=== PATIENT | male | born 1950 | race Caucasian/White ===

== ENCOUNTER → 2016-06-04 | Outpatient (CLI) | payer OTHER ==
[~2016-06-04] MED LIST: ACET-1256 PO; ASPI81TA28 PO; ATOR-22 PO; CALC667C4 PO; DUTA0.5C PO; DXM4 PO; ERGO500037 PO; HYDR-5688 PO; HYZ/10015 PO; IMDSR30 PO; INSDGI SC; INSDGIPEN SC; INTE44IN INJ; ISOS30TA3 PO; MECL1TAB42 PO; METO1TAB69 PO; METO1TAB70 PO; MULT-506 PO; NIFE30TA83 PO; NIFE90TA27 PO; NVLGIPEN SC; OXYC-57 PO; SILO8CAP PO
[2016-06-04 13:52] LABS: FREE PSA 0.98 ng/ml; PROSTATE SPECIFIC ANTIGEN 2.55 ng/ml (0.000-4.000)
== END | disposition home or self-care (01) ==
LOC: C.LAB1850 12:15
PROVIDERS: ATTEND Urology
DX: N20.0 Calculus of kidney (principal); R97.20 Elevated prostate specific antigen [PSA]; N40.1 Benign prostatic hyperplasia with lower urinary tract symptoms; R31.29 Other microscopic hematuria; R39.15 Urgency of urination; N28.1 Cyst of kidney, acquired; R33.8 Other retention of urine

== ENCOUNTER → 2016-06-12 | Outpatient (CLI) | payer OTHER ==
--- NOTE | 2016-06-12 13:12 | DIAGNOSTIC IMAGING REPORT ---
RENAL ULTRASOUND HISTORY: Hydronephrosis N20.0 Nephrolithiasis COMPARISON: None. FINDINGS: Right kidney: Maximum dimension 13.9 cm. Multicystic configuration. Largest cyst lower pole measuring 10 cm maximum. No evidence for hydronephrosis. Normal corticomedullary differentiation and cortical thickness. Left kidney: Maximum dimension 11.1 cm. No evidence for hydronephrosis. 1.2 cm central cyst. Normal corticomedullary differentiation and cortical thickness. Bladder: Moderate bladder wall trabeculation IMPRESSION: Multicystic appearance to the kidneys with the largest cyst on the right measuring 10 cm. No evidence for hydronephrosis. Mild trabeculation bladder wall Electronically signed by: Jorge García M.D. 06/12/2016 1:11 PM Dictated Date/Time: 06/12/2016 1:03 PM
== END | disposition home or self-care (01) ==
LOC: C.ULTR 12:06
PROVIDERS: ATTEND Urology
DX: N20.0 Calculus of kidney (principal); N28.1 Cyst of kidney, acquired

== ENCOUNTER → 2016-06-22 | Outpatient (CLI) | payer OTHER ==
--- NOTE | 2016-06-22 12:46 | DIAGNOSTIC IMAGING REPORT ---
MRI OF THE BRAIN WITHOUT CONTRAST CLINICAL HISTORY: MS NUMBNESS AND TINGLING OF BOTH LEGS COMPARISON STUDY: 05/07/2015 FINDINGS: Sagittal T1, axial diffusion, proton density and T2 weighted axial, coronal FLAIR, and axial T1-weighted images were acquired. No intra or extra-axial mass lesions are visualized Axial diffusion-weighted images reveal no evidence of acute or subacute infarction. There is no evidence of ventricular dilatation. Proton density T2-weighted and FLAIR images reveal moderately extensive foci of increased T2 signal within the cortical and periventricular white matter. This remains essentially unchanged. There are no abnormal flow voids. IMPRESSION: 1. Extensive foci of abnormal T2 signal within the white matter, similar to the preceding study 2. No evidence of acute or subacute infarction 3. No evidence of intracranial mass on this noncontrast study Electronically signed by: Rony Urbano M.D. 06/22/2016 12:45 PM Dictated Date/Time: 06/22/2016 12:42 PM
--- NOTE | 2016-06-22 13:52 | DIAGNOSTIC IMAGING REPORT ---
MRI OF THE CERVICAL SPINE WITHOUT CONTRAST CLINICAL HISTORY: Multiple sclerosis. Numbness and tingling of both legs. COMPARISON: MRI of the cervical spine May 09, 2015. TECHNIQUE: Utilizing a 1.5 Jesi magnet and dedicated coil, multiplanar, multiecho imaging of the cervical spine was performed without IV contrast. FINDINGS: The MRI of the brain will be reported separately. The exam is mildly compromised by motion artifact. Multifocal increased T2 signal within the cord is likely similar to exam of May 09, 2015 although comparison is difficult given motion artifact on this exam. There is no intracanalicular mass or fluid collection. Paravertebral soft tissues are unremarkable. No suspicious marrow replacement is present. Heterogeneity of the visualized skeletal structures is unchanged. Active demyelination is difficult to assess for on this unenhanced exam. C2-C3: The central canal and neural foramen are taken. C3-C4: The central canal is patent. There is mild narrowing of both neural foramen. C4-C5: Posterior disc osteophyte complex results in mild narrowing of the central canal. There is mild during of both neural foramen. C5-C6: Posterior disc osteophyte complex results in mild to moderate narrowing of central canal. There is mild during of both neural foramen. C6-C7: There is mild narrowing of the central canal and neural foramen. C7-T1: There is mild narrowing of the central canal and neural foramen. IMPRESSION: 1. Multiple areas of increased T2 signal within the cervical cord consistent with demyelination. No significant change since prior exam of May 09, 2015 although this exam is mildly compromised by motion artifact. 2. No change in mild to moderate multilevel degenerative changes, most pronounced at C5-C6. Electronically signed by: Denver Robbins M.D. 06/22/2016 1:51 PM Dictated Date/Time: 06/22/2016 1:43 PM
== END | disposition home or self-care (01) ==
LOC: C.MRI 10:37
PROVIDERS: ATTEND Psychiatry & Neurology Neurology
DX: G35 Multiple sclerosis (principal); R20.2 Paresthesia of skin

== ENCOUNTER → 2016-07-20 | Outpatient (CLI) | payer OTHER ==
[~2016-07-20] VITALS: Ht 175.3 cm; Wt 83.6 kg
[~2016-07-20] MED LIST changes: +CEFAZOLIN 2000 MG/60 ML D5W 60 ML IV SCH; +D5W AND 1/4NSS 1000 ML IV SCH; +METO-648 PO; +METO100T44 PO; -METO1TAB69 PO; -METO1TAB70 PO
[2016-07-20 13:13] VITALS: Ht 175.3 cm; Wt 83.6 kg
--- NOTE | 2016-07-20 13:49 | PAT Medication Instructions ---
Service Date Jul 20, 2016. Current Home Medication List Acetaminophen (Tylenol), 1 TAB PO PRN Aspirin (Aspirin Ec), 81 MG PO HS Atorvastatin (Lipitor), 20 MG PO HS Dutasteride (Avodart), 0.5 MG PO HS Ergocalciferol (Vitamin D 89383 Unit), 50,000 UNIT PO MONTH Hctz/Losartan (Hyzaar 25MG/100MG), 1 TAB PO QAM Insulin Glargine (Lantus), 60 SC QAM Interferon Beta-1A (Rebif), 0.5 ML INJ 3XWEEK Isosorbide Mononitrate Ext Rel (Imdur Ext Rel), 30 MG PO QAM Meclizine Hcl (Meclizine Hcl), 1 TAB PO PRN Metoprolol Succ (Toprol Xl) (Toprol-Xl ), 200 MG PO QAM Multivitamin (Multivitamin), 1 TAB PO QPM Nifedipine Ext Rel (Procardia Xl Ext Rel), 90 MG PO QAM Silodosin (Rapaflo), 1 CAP PO HS Medication Instructions For Your Scheduled Surgery Ergocalciferol (Vitamin D 04160 Unit), 50,000 UNIT PO MONTH (okay to continue as usual) Interferon Beta-1A (Rebif), 0.5 ML INJ 3XWEEK (MWF) (check with neurologist for instructions) - Check with surgeon/recreational vehicle repairer for instructions: Aspirin (Aspirin Ec), 81 MG PO HS - Hold the following medications the morning of surgery: Hctz/Losartan (Hyzaar 25MG/100MG), 1 TAB PO QAM - Take the following medications the morning of surgery with a sip of water: Nifedipine Ext Rel (Procardia Xl Ext Rel), 90 MG PO QAM Metoprolol Succ (Toprol Xl) (Toprol-Xl ), 200 MG PO QAM Meclizine Hcl (Meclizine Hcl), 1 TAB PO PRN Isosorbide Mononitrate Ext Rel (Imdur Ext Rel), 30 MG PO QAM Acetaminophen (Tylenol), 1 TAB PO PRN - Take the following medications as scheduled the night before surgery: Silodosin (Rapaflo), 1 CAP PO HS Multivitamin (Multivitamin), 1 TAB PO QPM Meclizine Hcl (Meclizine Hcl), 1 TAB PO PRN Dutasteride (Avodart), 0.5 MG PO HS Atorvastatin (Lipitor), 20 MG PO HS Acetaminophen (Tylenol), 1 TAB PO PRN - For Insulin Dependent Diabetic patients: Test blood sugar A.M. of surgery. - If blood sugar greater than 150, take half of your regular dose of: Insulin Glargine (Lantus), take 30 units - If blood sugar less than 150, do not take any: Insulin Glargine (Lantus) If you have any questions please call us at [phone] (Maddie Salgado PA-C) or [phone] or [phone]
[2016-07-20 14:34] LABS: BASO % 0.7 %; BASO ABS # 0.05 K/uL (0-0.2); COMPLETE YES; EOS % 2.1 %; HEMATOCRIT 29.4 % (42-52); IG% 0.1 %; LYMPH % 24.3 %; LYMPH ABS # 1.63 K/uL (1.2-3.4); MEAN CELL VOLUME 80.8 fL (80-100); MEAN CORPUSCULAR HEMOGLOBIN 29.1 pg (25-34); MEAN CORPUSCULAR HGB CONC 36.1 g/dl (32-36); MEAN PLATELET VOLUME 10.4 fL (7.4-10.4); MONO % 9.1 %; NEUT % 63.7 %; PLATELET COUNT 232 K/uL (130-400); RED BLOOD COUNT 3.64 M/uL (4.7-6.1); WHITE BLOOD COUNT 6.71 K/uL (4.8-10.8)
[2016-07-20 14:56] LABS: BUN/CREATININE RATIO 10.7 (10-20); CALCIUM 9.4 mg/dl (8.5-10.1); POTASSIUM 3.4 mmol/L (3.5-5.1)
--- NOTE | 2016-07-20 15:15 | DIAGNOSTIC IMAGING REPORT ---
CHEST 2 VIEWS ROUTINE CLINICAL HISTORY: PAT preoperative evaluation COMPARISON STUDY: 10/16/2011 FINDINGS: The bones soft tissues and hemidiaphragms are normal. The cardiomediastinal silhouette is normal. The lungs are clear. The pulmonary vasculature is normal. IMPRESSION: Negative chest. Electronically signed by: Jorge García M.D. 07/20/2016 3:14 PM Dictated Date/Time: 07/20/2016 3:13 PM
[2016-07-27 11:54] LABS: URINE APPEARANCE CLEAR (CLEAR); URINE BILIRUBIN NEG (NEG); URINE COLOR YELLOW; URINE EPITHELIAL CELL AUTO 20-30 /lpf (0-5); URINE NITRITE NEG (NEG); URINE PH 6.5 (4.5-7.5); URINE SPECIFIC GRAVITY 1.017 (1.000-1.030); UROBILINOGEN NEG (NEG)
[2016-07-27 12:00] LABS: MANUAL MICROSCOPIC REQUIRED? NO; REVIEW REQ? NO
--- NOTE | 2016-09-15 13:16 | CODING QUERY MEDICAL NECESSITY ---
CQSUPPORTING DIAGNOSIS NEEDED A supporting diagnosis is required for the test/procedure performed on this patient in order for us to be reimbursed by the patient's insurance. Please provide a supporting diagnosis for the following test/procedure listed below next to the test name along with your signature. *If there is no additional diagnosis for this patient that would support the following test/procedure please document that below next to the test/procedure. Test(s)/Procedure(s) that require a supporting diagnosis: DOS 07/20/16 URINE CULTURE Provider Signature: Date: Thank you Nay Kaba [facility] Information Management Once completed, please kindly fax back to [phone] For questions please call [phone]
== END | disposition home or self-care (01) ==
LOC: C.LAB 08:00 → EDSTATUS 08-06 10:53
PROVIDERS: ATTEND Urology
DX: Z01.818 Encounter for other preprocedural examination (principal); R39.15 Urgency of urination; R31.29 Other microscopic hematuria; R97.20 Elevated prostate specific antigen [PSA]; N40.0 Benign prostatic hyperplasia without lower urinary tract symptoms

== ENCOUNTER → 2016-07-27 | Outpatient (CLI) | payer OTHER ==
[~2016-07-27] MED LIST changes: -CEFAZOLIN 2000 MG/60 ML D5W 60 ML IV SCH; -D5W AND 1/4NSS 1000 ML IV SCH; -METO-648 PO; -METO100T44 PO; +METO1TAB69 PO; +METO1TAB70 PO
[2016-07-27 10:52] LABS: PATIENT HEIGHT 175.3 cm
[2016-07-27 12:08] LABS: BASO % 0.4 %; BASO ABS # 0.03 K/uL (0-0.2); COMPLETE YES; EOS % 2.7 %; HEMATOCRIT 26.1 % (42-52); IG% 0.1 %; LYMPH % 20.7 %; LYMPH ABS # 1.39 K/uL (1.2-3.4); MEAN CELL VOLUME 81.1 fL (80-100); MEAN CORPUSCULAR HEMOGLOBIN 28.6 pg (25-34); MEAN CORPUSCULAR HGB CONC 35.2 g/dl (32-36); MEAN PLATELET VOLUME 9.8 fL (7.4-10.4); MONO % 9.1 %; PLATELET COUNT 192 K/uL (130-400); RED BLOOD COUNT 3.22 M/uL (4.7-6.1); WHITE BLOOD COUNT 6.71 K/uL (4.8-10.8)
[2016-07-27 12:09] LABS: URINE APPEARANCE CLEAR (CLEAR); URINE BILIRUBIN NEG (NEG); URINE COLOR YELLOW; URINE EPITHELIAL CELL AUTO >30 /lpf (0-5); URINE NITRITE NEG (NEG); URINE SPECIFIC GRAVITY 1.019 (1.000-1.030); UROBILINOGEN NEG (NEG)
[2016-07-27 12:15] LABS: MANUAL MICROSCOPIC REQUIRED? NO; REVIEW REQ? YES
[2016-07-27 12:22] LABS: BUN/CREATININE RATIO 12.1 (10-20); CALCIUM 8.8 mg/dl (8.5-10.1); POTASSIUM 3.1 mmol/L (3.5-5.1)
[2016-07-27 12:24] LABS: ALB/GLOB RATIO 0.6 (0.9-2)
[2016-07-27 12:47] LABS: URINE PROTIEN/CREAT RATIO 8.8 (0-0.2); URINE TOTAL PROTEIN 873.7 mg/dl (0-11.9)
[2016-07-27 12:55] LABS: URINE TOTAL PROTEIN 726.3 mg/dl (0-11.9)
[2016-07-27 12:57] LABS: URINE TOTAL PROTEIN CALC 10531.4 mg/24 hr (0-149.1)
[2016-07-31 06:55] LABS: ANTI-CENTROMERE AB <1.0 NEG AI (<1.0 NEG); ANTI-SS-A <1.0 NEG AI (<1.0 NEG); ANTI-SS-B <1.0 NEG AI (<1.0 NEG); DNA ds CRITHIDIA NEGATIVE (NEGATIVE); FREE KAPPA 137.3 MG/L (3.3-19.4); FREE KAPPA/LAMBDA RATIO 1.78 (0.26-1.65); FREE LAMBDA 77.1 MG/L (5.7-26.3); MYELOPEROXIDASE AB <1.0 AI (<1.0); Sm Antibody <1.0 NEG AI (<1.0 NEG)
== END | disposition home or self-care (01) ==
LOC: C.LAB1850 10:42
PROVIDERS: ATTEND Internal Medicine Nephrology
DX: I10 Essential (primary) hypertension (principal); R80.9 Proteinuria, unspecified; N18.3 Chronic kidney disease, stage 3 (moderate); E55.9 Vitamin D deficiency, unspecified; N28.1 Cyst of kidney, acquired

== ENCOUNTER 2016-07-29 18:41 | Inpatient (IN) | payer OTHER ==
[~2016-07-29] VITALS: Ht 175.3 cm; Wt 84.2 kg
[~2016-07-29 18:41] MED LIST changes: -ASPI81TA28 PO; -CALC667C4 PO; -DUTA0.5C PO; -DXM4 PO; -ERGO500037 PO; -HYDR-5688 PO; -IMDSR30 PO; -INSDGIPEN SC; -MECL1TAB42 PO; +METO100T44 PO; -METO1TAB69 PO; -METO1TAB70 PO; -MULT-506 PO; -NIFE90TA27 PO; -NVLGIPEN SC; -OXYC-57 PO; -SILO8CAP PO
[2016-07-29 18:53] VITALS: BP 192/90; PULSE 70; TEMP 36.4; O2SAT 97; Ht 175.3 cm; Wt 84.2 kg
[2016-07-29 19:02] VITALS: BP 192/90; PULSE 70; TEMP 36.4; O2SAT 97
[2016-07-29] MEDS ORDERED: MAGNESIUM HYDROXIDE SUSP 30 ML UDC PO PRN (19:30)
[2016-07-29] MEDS ORDERED: ALUMINUM/MAGNESIUM/SIMETH (MAALOX MAX) 30 ML UDC PO PRN (19:30)
[2016-07-29] MEDS ORDERED: ONDANSETRON INJ 2 MG/ML 2 ML VIAL IV PRN (19:30)
[2016-07-29] MEDS ORDERED: ACETAMINOPHEN 325 MG TAB PO PRN (19:30)
[2016-07-29] MEDS ORDERED: GLUCOSE 40% GEL 15 GM TUBE PO PRN (19:45)
[2016-07-29] MEDS ORDERED: GLUCOSE 10 TABS/TUBE PO PRN (19:45)
[2016-07-29] MEDS ORDERED: DEXTROSE 50% 50 ML SYR IV PRN (19:45)
[2016-07-29] MEDS ORDERED: GLUCAGON FOR INJ 1 MG VIAL SQ PRN (19:45)
[2016-07-29 20:00] VITALS: BP 189/90
[2016-07-29] MEDS ORDERED: POLYETHYLENE (MIRALAX) 17 GM PACK PO PRN (20:00)
[2016-07-29 20:35] LABS: HEMATOCRIT 25.9 % (42-52); MEAN CELL VOLUME 82.7 fL (80-100); MEAN CORPUSCULAR HEMOGLOBIN 29.1 pg (25-34); MEAN CORPUSCULAR HGB CONC 35.1 g/dl (32-36); MEAN PLATELET VOLUME 10.4 fL (7.4-10.4); PLATELET COUNT 184 K/uL (130-400); RED BLOOD COUNT 3.13 M/uL (4.7-6.1); WHITE BLOOD COUNT 6.59 K/uL (4.8-10.8)
--- NOTE | 2016-07-29 20:37 | History and Physical ---
History & Physical Date & Time of Service: Jul 29, 2016 at 20:31 Chief Complaint: Acute Renal Failure Primary Care Physician: Elyse Smith M.D. History of Present Illness Source: patient, family This is a 66 y/o M with a history of CKD stage 3, HTN, Colostomy s/p intestinal perforation, DM, MS, BPH who presents as a direct admit from the nephrology office for concerns about elevated LFT's and worsening renal function as well as potential for dialysis. He is scheduled for TURP next week and had pre-op testing last week. Serum creatinine has increased to 4.0 w/ EGFR 15 cc/min. LFT's have also increased. He subsequently had follow up labs this week and then saw Dr. Poe today. He reports not having any symptoms other than persistent urinary sx. His renal impairment is 2/2 Diabetic nephropathy and Hypertensive nephrosclerosis. The patient is being admitted for further evaluation of his abnormal lab values. Past Medical/Surgical History CKD stage 3, HTN, Colostomy s/p intestinal perforation, DM, MS, BPH Family History HTN Social History Smoking Status: Never Smoker Alcohol Use: none Drug Use: none Marital Status: Housing status: lives with family Occupational Status: retired Immunizations History of Influenza Vaccine: Yes Influenza Vaccine Date: Feb 08, 2005 History of Tetanus Vaccine?: No History of Pneumococcal: Yes Pneumococcal Date: Jul 10, 2003 History of Hepatitis B Vaccine: Yes Hepatitis Immunization Date: Jul 09, 2004 Multi-Drug Resistant Organisms History of MDRO: No Allergies Coded Allergies: No Known Allergies (Verified , 07/20/16) Home Medications Scheduled Acetaminophen (Tylenol), 1 TAB PO PRN Aspirin (Aspirin Ec), 81 MG PO HS Atorvastatin (Lipitor), 20 MG PO HS Dutasteride (Avodart), 0.5 MG PO HS Ergocalciferol (Vitamin D 78826 Unit), 50,000 UNIT PO MONTH Hctz/Losartan (Hyzaar 25MG/100MG), 1 TAB PO QAM Insulin Glargine (Lantus Solostar), 68 SC BID Interferon Beta-1A (Rebif), 0.5 ML INJ 3XWEEK Isosorbide Mononitrate Ext Rel (Imdur Ext Rel), 30 MG PO QAM Meclizine Hcl (Meclizine Hcl), 1 TAB PO PRN Metoprolol Succ (Toprol Xl) (Toprol-Xl ), 200 MG PO QAM Multivitamin (Multivitamin), 1 TAB PO QPM Nifedipine Ext Rel (Procardia Xl Ext Rel), 90 MG PO QAM Silodosin (Rapaflo), 1 CAP PO HS Review of Systems Constitutional: No chills, No fever Respiratory: No cough, No dyspnea on exertion, No shortness of breath, No sputum, No wheezing Cardiovascular: No chest pain Abdomen: No constipation, No diarrhea, No nausea, No pain, No vomiting Genitourinary - Male: + urinary frequency, + urinary hesitancy, + urinary urgency, No dysuria, No hematuria Physical Exam Vital Signs Date Time Temp Pulse Resp B/P Pulse Ox O2 Delivery O2 Flow Rate FiO2 07/29/16 19:02 36.4 70 20 192/90 97 Room Air 07/29/16 18:53 36.4 70 20 192/90 97 Room Air General Appearance: no apparent distress Eyes: PERRL, EOMI Neck: supple, no adenopathy Respiratory/Chest: lungs clear, normal breath sounds, no respiratory distress, no accessory muscle use Cardiovascular: regular rate, rhythm, no edema, no murmur Abdomen/GI: normal bowel sounds, non tender, soft, + pertinent finding ( Colostomy in place) Back: no CVA tenderness Extremities/Musculoskelatal: no calf tenderness, normal range of motion, + pedal edema (trace) Neurologic/Psych: no motor/sensory deficits, alert, normal mood/affect, oriented x 3 Diagnostics Laboratory Results Results Past 24 Hours Test 07/29/16 19:25 07/29/16 20:14 Range/Units Bedside Glucose 273 70-99 mg/dl Impression Assessment and Plan Acute on Chronic Kidney disease 2/2 diabetic nephropathy Worsening renal function, Cr, at 4.1 Gentle Hydration repeat Labs AM Renal US Consult Nephrology [place] HTN: Hyzaar held due to renal function Hydralazine PRN DM ISS Lantus 68 BID BPH Kuday Catheter Continue Silodosin and Avodart DVT proph: Heparin VTE Prophylaxis VTE Risk Assessment Done? Y/N: Yes Risk Level: Moderate Given or contraindicated: Unfractionated heparin SQ Assessment and Plan Attending Addendum: I have physically seen and examined this patient, have directed their medical care, have supervised the medical residents activities, and agree with the H&P as noted above, with the following changes: The patient is awake, well-developed and adequately nourished, alert and oriented 3, normocephalic and atraumatic, lying in bed and in no acute distress. HEENT--PERRL, EOMI, mucous membranes and oropharynx dry. Neck--supple, no JVD or bruits, thyroid normal, trachea midline, no adenopathy. Heart--normal S1 and S2, no extra beats, no murmurs, rubs or gallops. Lungs--clear bilaterally with good air movement, no respiratory distress, no accessory muscle use. Abdomen--normal bowel sounds and soft, nontender and nondistended, colostomy in place. Extremities--no cyanosis, clubbing. There is trace pretibial and pedal edema. There are good distal pulses b/l. Dermatologic--normal skin turgor, normal color, warm and dry, no abnormal lymph nodes, no rash. Neurologic--cranial nerves II through XII grossly intact, motor and sensory examination normal. Rheumatologic--normal range of motion, nontender, muscles and joints. Psychiatric--normal affect. Assessment And Plan: Acute on chronic kidney disease--creatinine is 4.1. Hold Hyzaar, and gently hydrate with IV fluids normal saline. Repeat BMP and magnesium in the a.m. This Diabetes mellitus--continue Lantus insulin 60 units subcutaneous twice a day. Place on Accu-Cheks before meals and at bedtime with NovoLog coverage. CAD/hypertension--continue metoprolol succinate 200 mg by mouth daily, nifedipine XL 90 mg by mouth daily, Imdur 30 mg by mouth daily, and aspirin 81 mg by mouth daily. Hold Hyzaar 25/100. Hypercholesterolemia--continue atorvastatin 20 mg by mouth daily. BPH--continue dutasteride and Rapaflo or generic equivalent.
[2016-07-29] MEDS: AVODART~ORDER AWAITING ACTION SCH (20:44)
[2016-07-29] MEDS: RAPAFLO~ORDER AWAITING ACTION SCH (20:45)
[2016-07-29 20:48] LABS: INR 0.9 (0.9-1.1); PARTIAL THROMBOPLASTIN RATIO 1.1; PROTHROMBIN TIME (PATIENT) 10.1 SECONDS (9.0-12.0)
[2016-07-29] MEDS: ASPIRIN 81 MG ECTAB PO SCH (20:53)
[2016-07-29 21:08] LABS: BASO % 0.3 %; BASO ABS # 0.02 K/uL (0-0.2); COMPLETE YES; EOS % 0.6 %; IG% 0.2 %; LYMPH ABS # 0.99 K/uL (1.2-3.4); NEUT % 75.9 %
[2016-07-29 21:12] LABS: ALT/SGPT 110 U/L (12-78); BLOOD UREA NITROGEN 48 mg/dl (7-18); BUN/CREATININE RATIO 11.6 (10-20); CALCIUM 8.6 mg/dl (8.5-10.1); CARBON DIOXIDE 26 mmol/L (21-32); CHLORIDE 110 mmol/L (98-107); GLUCOSE 260 mg/dl (70-99); POTASSIUM 3.3 mmol/L (3.5-5.1); SODIUM 145 mmol/L (136-145)
[2016-07-29 21:15] LABS: ALB/GLOB RATIO 0.6 (0.9-2); ALKALINE PHOSPHATASE 193 U/L (45-117); AST/SGOT 42 U/L (15-37)
[2016-07-29] MEDS ORDERED: MECLIZINE HCL 25 MG TAB PO PRN (21:30)
[2016-07-29] MEDS ORDERED: INSULIN GLARGINE SOLOSTAR 100 UNITS/ML 3 ML PEN SC SCH (21:30)
[2016-07-29] MEDS ORDERED: NURSING VERBAL MED ORDER ONE ×3 (21:30→23:00)
--- NOTE | 2016-07-29 21:50 | DIAGNOSTIC IMAGING REPORT ---
RENAL ULTRASOUND HISTORY: Renal failure worsening kidney function COMPARISON: 06/12/2016 FINDINGS: Right kidney: Maximum dimension 13 cm. No evidence for hydronephrosis. Multiple cysts unchanged from the prior study. Normal corticomedullary differentiation and cortical thickness. Left kidney: Maximum dimension 10.5 cm. No evidence for hydronephrosis. Several cysts unchanged in the prior study Normal corticomedullary differentiation and cortical thickness. Bladder: Mild bladder wall trabeculation unchanged IMPRESSION: multicystic kidneys unchanged from the prior study. No evidence for hydronephrosis. No new or interval finding. Electronically signed by: Jorge García M.D. 07/29/2016 9:49 PM Dictated Date/Time: 07/29/2016 9:47 PM
[2016-07-29] MEDS: SODIUM CHLORIDE 0.9% 1000ML 1,000 ML IV SCH (21:52)
[2016-07-29] MEDS: MULTIVITAMIN TAB PO SCH (21:56)
[2016-07-29] MEDS ORDERED: ATORVASTATIN 20 MG TAB PO SCH (22:00)
[2016-07-29] MEDS: HydrALAZINE HCL 20 MG/ML VIAL IV. PRN (22:54)
[2016-07-29 23:01] VITALS: BP 199/88; PULSE 82; TEMP 36.8; O2SAT 97
[2016-07-29 23:11] LABS: URINE APPEARANCE CLEAR (CLEAR); URINE BILIRUBIN NEG (NEG); URINE COLOR YELLOW; URINE EPITHELIAL CELL AUTO >30 /lpf (0-5); URINE NITRITE NEG (NEG); URINE PH 6.5 (4.5-7.5); UROBILINOGEN NEG (NEG)
[2016-07-29 23:12] LABS: MANUAL MICROSCOPIC REQUIRED? NO; REVIEW REQ? YES
[2016-07-29] MEDS: INSULIN ASPART 100 UNITS/ML 3 ML PEN SC SCH (23:29)
[2016-07-30] VITALS (10 sets, daily range): BP systolic 176–200; BP diastolic 82–104; PULSE 77–88; TEMP 36.6–37.2; O2SAT 95–98
[2016-07-30] MEDS ORDERED: METOPROLOL TARTRATE 1 MG/ML VIAL IV STA (00:42)
[2016-07-30] MEDS ORDERED: HydrALAZINE HCL 20 MG/ML VIAL IV. ONE (01:00)
[2016-07-30] MEDS ORDERED: METOPROLOL TARTRATE 25 MG TAB PO ONE (01:00)
[2016-07-30] MEDS: POTASSIUM CHLR 10MEQ / WTR IV SCH ×2 (01:24→02:31)
[2016-07-30] MEDS: METOPROLOL SUCC 50MG EXT REL TAB PO SCH ×3 (01:28→05:27)
[2016-07-30] MEDS ORDERED: LABETALOL HCL IV 5 MG/ML 20ML IV STA (05:28)
--- NOTE | 2016-07-30 05:32 | Progress Note ---
Progress Note Date of Service Jul 30, 2016. Progress Note Received multiple calls about patient's blood pressure throughout the night. Hydralazine x 2 - no improvement Patient remained asymptomatic. Home dose of metoprolol was inadvertently administered early (dispensing error) instead of the metoprolol tartrate that was ordered. Nurses instructed to hold morning home metoprolol dose at 8. Decided to transfer patient to Tele, to be able to administer Labetalol.
[2016-07-30] MEDS: INSULIN ASPART 100 UNITS/ML 3 ML PEN SC SCH ×4 (07:00→20:23)
[2016-07-30] MEDS ORDERED: INSULIN GLARGINE SOLOSTAR 100 UNITS/ML 3 ML PEN SC SCH (08:00)
[2016-07-30] MEDS ORDERED: ISOSORBIDE MONONITRATE 30 MG TABCR PO SCH (08:00)
--- NOTE | 2016-07-30 08:02 | Family Medicine Progress Note ---
Progress Note Date of Service Jul 30, 2016. Subjective Pt evaluation today including: conversation w/ patient, conversation w/ family , physical exam, chart review, lab review Patient says up until 4-5 days ago, he was well. 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 He has been completely asymptomatic otherwise. He denies recent fevers or URI symptoms. He has a longstanding history of BPH and MS, and there have not been any significant changes in these conditions or their respective medication regimens. Patient feels bewildered as to how and why this came on. is also unsure of how multiple issues seem to have arisen simultaneously. Discussed the likelihood of symptoms overlapping and affecting one another, such as BPH straining kidney and damaged kidney dysregulation of BP, as well as multiple other factors playing a role. Patients questions answered satisfactorily and they began to understand complexity of situation and symptoms. Constitutional: No fatigue, No fever, No weakness, No weight loss Respiratory: No cough, No shortness of breath Cardiovascular: No chest pain, No edema, No orthopnea, No palpitations Abdomen: No nausea, No pain, No vomiting Male : + nocturia more than once/night, + slowing stream, + urinary frequency, No dysuria, No hematuria, No incontinence Skin: No itch, No rash Objective Vital Signs Date Time Temp Pulse Resp B/P Pulse Ox O2 Delivery O2 Flow Rate FiO2 07/30/16 07:50 37.1 88 18 200/89 98 Room Air 07/30/16 05:31 36.9 85 20 199/93 98 Room Air 85 196/104 07/30/16 05:13 36.6 87 16 97 0.0 07/30/16 03:36 87 18 195/91 95 07/29/16 23:01 36.8 82 18 199/88 97 Room Air 07/29/16 20:00 189/90 07/29/16 19:02 36.4 70 20 192/90 97 Room Air 07/29/16 18:53 36.4 70 20 192/90 97 Room Air 07/29/16 18:53 97 Room Air Physical Exam General Appearance: WD/WN, no apparent distress Eyes: normal inspection ENT: hearing grossly normal, pharynx normal Neck: supple, no adenopathy, no JVD Respiratory/Chest: lungs clear, normal breath sounds, no respiratory distress, no accessory muscle use Cardiovascular: regular rate, rhythm, no murmur Laboratory Results Results Past 24 Hours Test 07/29/16 22:43 07/30/16 00:12 07/30/16 06:57 07/30/16 08:49 Range/Units Bedside Glucose 320 283 88 70-99 mg/dl Sodium Level 148 136-145 mmol/L Potassium Level 3.0 3.5-5.1 mmol/L Chloride Level 115 98-107 mmol/L Carbon Dioxide Level 25 21-32 mmol/L Anion Gap 8.0 3-11 mmol/L Blood Urea Nitrogen 41 7-18 mg/dl Creatinine 3.80 0.60-1.40 mg/dl Est Creatinine Clear Calc Drug Dose 18.6 ml/min Estimated GFR () 17.8 Estimated GFR (Non- 15.3 BUN/Creatinine Ratio 10.8 10-20 Random Glucose 147 70-99 mg/dl Calcium Level 8.1 8.5-10.1 mg/dl Phosphorus Level 4.0 2.5-4.9 mg/dl Magnesium Level 2.2 1.8-2.4 mg/dl Total Bilirubin 0.3 0.2-1 mg/dl Aspartate Amino Transf (AST/SGOT) 28 15-37 U/L Alanine Aminotransferase (ALT/SGPT) 81 12-78 U/L Alkaline Phosphatase 153 45-117 U/L Total Protein 5.6 6.4-8.2 gm/dl Albumin 2.1 3.4-5.0 gm/dl Globulin 3.5 2.5-4.0 gm/dl Albumin/Globulin Ratio 0.6 0.9-2 Test 07/30/16 11:03 07/30/16 11:30 07/30/16 15:27 07/30/16 15:29 Range/Units Bedside Glucose 127 70-99 mg/dl Sodium Level 147 136-145 mmol/L Potassium Level 3.3 3.5-5.1 mmol/L Chloride Level 115 98-107 mmol/L Carbon Dioxide Level 24 21-32 mmol/L Anion Gap 8.0 3-11 mmol/L Blood Urea Nitrogen 43 7-18 mg/dl Creatinine 4.10 0.60-1.40 mg/dl Est Creatinine Clear Calc Drug Dose 17.3 ml/min Estimated GFR () 16.2 Estimated GFR (Non- 14.0 BUN/Creatinine Ratio 10.5 10-20 Random Glucose 162 70-99 mg/dl Calcium Level 7.8 8.5-10.1 mg/dl Test 07/30/16 15:58 07/30/16 20:18 Range/Units Bedside Glucose 163 137 70-99 mg/dl Assessment and Plan 66 year old male with DM, CKD, HTN, multiple sclerosis, and BPH directly admitted for hypertensive urgency with possible ARF Hypertensive - Continue metoprolol succinate PO 200mg qAM and nifedipine PO 90mg qAM - Hold HCT/losartan in view of renal function - Hydralazine IV 4mg PRN, Lopressor IV 5mg PRN Acute on CKD - worsening renal function, Cr 4.1. Renal US showed multicystic changes but no hydronephrosis. Nephrotic range proteinuria - Nephrology consulted - recs appreciated - Trend BMP, monitor I/O's - Hold statin therapy. - Trend serum free light chains, LETY, ANCA, complement levels - Protect left arm for dialysis access DM - ISS + Lantus 68units BID BPH - Kuday Catheter in situ - Continue Silodosin 8mg HS and Avodart 0.5mg daily MS - Continue Rebif Prophylaxis - Heparin Continued [facility] stay due to: abnormal vital signs, voiding difficulties, multiple IV medications needed Resident Tracking Resident Involvement: Resident Care Provided Care Provided: Adult Hospital Medicine History Resident Physician Supervision Note: I was present with Dr. Nielsen during the history and exam. I discussed the case with the resident and agree with the findings and plan as documented in the note. Any exceptions or clarifications are listed here. Pt seen and examined at bedside. Since admission, blood pressure has been persistently elevated with minimal response to IV PRNs without any apparent symptoms. He reports no headache, vision/hearing changes, n/v, CP/SOB, sensory changes. General Appearance: WD/WN, no apparent distress Respiratory: chest non-tender, lungs clear, normal breath sounds, no respiratory distress Cardiovascular: normal peripheral pulses, regular rate, rhythm, no murmur Gastrointestinal: normal bowel sounds, non tender, soft, no organomegaly Assessment/Plan 66 y/o male h/o MS on Rebif, HTN, AODM presents w/ hypertensive emergency, acute on chronic renal disease HTN - Hold losartan 2/2 CKD below. Continue metoprolol daily. Lopressor IV and hydralazine IV PRNs. Acute exacerbation of CKD - trend BMP daily. Nephrology aware, input appreciated. Monitor I/O. Hold statin therapy. F/U serum free light chains, LETY , ANCA, complement levels DMII - Lantus w/ ISS BPH - continue avodart and silodosin DVT PPX: Heparin
[2016-07-30] MEDS: AVODART~ORDER AWAITING ACTION SCH (08:05)
[2016-07-30] MEDS: RAPAFLO~ORDER AWAITING ACTION SCH ×3 (08:05→20:24)
[2016-07-30] MEDS: NIFEdipine 30 MG CR TAB PO SCH (08:08)
[2016-07-30] MEDS: INSULIN GLARGINE SOLOSTAR 100 UNITS/ML 3 ML PEN SC SCH (08:11)
[2016-07-30] MEDS: HEPARIN SOD 5000 UNIT/0.5 ML CARP SQ SCH ×2 (08:12→20:42)
[2016-07-30] MEDS: SODIUM CHLORIDE 0.9% 1000ML 1,000 ML IV SCH (08:26)
[2016-07-30 09:30] LABS: BUN/CREATININE RATIO 10.8 (10-20); CALCIUM 8.1 mg/dl (8.5-10.1); CREATININE 3.8 mg/dl (0.60-1.40)
[2016-07-30 09:32] LABS: ALB/GLOB RATIO 0.6 (0.9-2)
[2016-07-30 09:37] LABS: MAGNESIUM 2.2 mg/dl (1.8-2.4)
[2016-07-30] MEDS: HydrALAZINE HCL 20 MG/ML VIAL IV. PRN ×3 (10:00→20:42)
--- NOTE | 2016-07-30 11:51 | Clinical Documentation Query ---
CLINICAL DOCUMENTATION QUERY Dr. TEMPLE, The wording of acute on chronic kidney disease will not be coded to acute renal/kidney failure on CKD stage III In your clinical opinion is this patient being managed for: ( ) Acute kidney failure on CKD stage III, secondary to diabetic nephropathy ( X ) Other explanation of clinical findings (Please Explain) Acute kidney failure on CKD stage IV, secondary to diabetic nephropathy ( ) Unable to determine (Please Define) ( ) Need to Discuss ( ) Not Agree The medical record reflects the following clinical findings, treatment, and risk factors. Clinical Indicators: H/P documentation "Acute on Chronic Kidney disease 2/2 diabetic nephropathy" Treatment: monitor PRP, IV fluids, nephrology consult, Risk Factors: age, diabetic nephropathy, HTN, CKD stage III Please clarify and document your clinical opinion in the progress notes and discharge summary. Terms such as "probable", "suspected", "likely", "questionable", "possible", or "still to be ruled out" are acceptable. IF IN AGREEMENT, YOU MUST DOCUMENT ABOVE DIAGNOSTIC STATEMENT IN DAILY PROGRESS NOTES AND DISCHARGE SUMMARY. This document is not part of the patient's record. Thank You, Olga Pal, MICHELE [phone]
--- NOTE | 2016-07-30 11:55 | Clinical Documentation Query ---
CLINICAL DOCUMENTATION QUERY Dr. WINSTON, The wording of acute on chronic kidney disease will not be coded to acute renal/kidney failure on CKD stage III In your clinical opinion is this patient being managed for: ( ) Acute kidney failure on CKD stage III, secondary to diabetic nephropathy ( ) Other explanation of clinical findings (Please Explain) ( ) Unable to determine (Please Define) ( ) Need to Discuss ( ) Not Agree The medical record reflects the following clinical findings, treatment, and risk factors. Clinical Indicators: H/P documentation "Acute on Chronic Kidney disease 2/2 diabetic nephropathy" Treatment: monitor PRP, IV fluids, nephrology consult, Risk Factors: age, diabetic nephropathy, HTN, CKD stage III Please clarify and document your clinical opinion in the progress notes and discharge summary. Terms such as "probable", "suspected", "likely", "questionable", "possible", or "still to be ruled out" are acceptable. IF IN AGREEMENT, YOU MUST DOCUMENT ABOVE DIAGNOSTIC STATEMENT IN DAILY PROGRESS NOTES AND DISCHARGE SUMMARY. This document is not part of the patient's record. Thank You, Olga Pal, RN [phone]
[2016-07-30] MEDS ORDERED: NURSING VERBAL MED ORDER ONE (13:00)
[2016-07-30] MEDS ORDERED: METOPROLOL TARTRATE 1 MG/ML VIAL ONE (13:11)
[2016-07-30 16:04] LABS: BUN/CREATININE RATIO 10.5 (10-20); CALCIUM 7.8 mg/dl (8.5-10.1); CREATININE 4.1 mg/dl (0.60-1.40); POTASSIUM 3.3 mmol/L (3.5-5.1)
[2016-07-30] MEDS ORDERED: ISOSORBIDE MONONITRATE 30 MG TABCR PO ONE (17:00)
--- NOTE | 2016-07-30 17:20 | Nephrology Progress Note ---
Nephrology Progress Note Date of Service Jul 30, 2016. Review of Systems A complete review of systems was performed. Pertinent positives are noted above. All other systems are negative. Vital Signs Last 8 Hrs Date Time Temp Pulse Resp B/P Pulse Ox O2 Delivery O2 Flow Rate FiO2 07/30/16 16:00 Room Air 07/30/16 15:20 37.2 81 16 184/92 97 Room Air 07/30/16 13:32 80 193/87 07/30/16 13:10 80 194/89 07/30/16 12:23 36.9 81 20 185/87 98 Room Air 07/30/16 12:00 Room Air 07/30/16 10:15 84 181/86 07/30/16 09:54 82 198/86 I & O 24-Hour Column 07/30/16 08:00 Intake Total 472 ml Output Total 850 ml Balance -378 ml Last Recorded Weight Weight (Kilograms): 84.500 Social History Alcohol Use: none Drug Use: none Marital Status: Housing Status: lives with family Occupation: retired Laboratory Results Past 24 Hours 07/29/16 20:10 Red Blood Count 3.13, Mean Corpuscular Volume 82.7, Mean Corpuscular Hemoglobin 29.1, Mean Corpuscular Hemoglobin Concent 35.1, Mean Platelet Volume 10.4, Neutrophils (%) (Auto) 75.9, Lymphocytes (%) (Auto) 15.0, Monocytes (%) (Auto) 8.0, Eosinophils (%) (Auto) 0.6, Basophils (%) (Auto) 0.3, Neutrophils # (Auto) 5.00, Lymphocytes # (Auto) 0.99, Monocytes # (Auto) 0.53, Eosinophils # (Auto) 0.04, Basophils # (Auto) 0.02 07/29/16 20:10 07/30/16 08:49 07/30/16 15:27 Test 07/29/16 20:10 07/29/16 20:14 07/29/16 22:43 07/30/16 00:12 White Blood Count 6.59 K/uL (4.8-10.8) Red Blood Count 3.13 M/uL (4.7-6.1) Hemoglobin 9.1 g/dL (14.0-18.0) Hematocrit 25.9 % (42-52) Mean Corpuscular Volume 82.7 fL (80-100) Mean Corpuscular Hemoglobin 29.1 pg (25-34) Mean Corpuscular Hemoglobin Concent 35.1 g/dl (32-36) Platelet Count 184 K/uL (130-400) Mean Platelet Volume 10.4 fL (7.4-10.4) Neutrophils (%) (Auto) 75.9 % Lymphocytes (%) (Auto) 15.0 % Monocytes (%) (Auto) 8.0 % Eosinophils (%) (Auto) 0.6 % Basophils (%) (Auto) 0.3 % Neutrophils # (Auto) 5.00 K/uL (1.4-6.5) Lymphocytes # (Auto) 0.99 K/uL (1.2-3.4) Monocytes # (Auto) 0.53 K/uL (0.11-0.59) Eosinophils # (Auto) 0.04 K/uL (0-0.5) Basophils # (Auto) 0.02 K/uL (0-0.2) RDW Standard Deviation 46.0 fL (36.4-46.3) RDW Coefficient of Variation 15.2 % (11.5-14.5) Immature Granulocyte % (Auto) 0.2 % Immature Granulocyte # (Auto) 0.01 K/uL (0.00-0.02) Prothrombin Time 10.1 SECONDS (9.0-12.0) Prothromb Time International Ratio 0.9 (0.9-1.1) Activated Partial Thromboplast Time 28.1 SECONDS (21.0-31.0) Partial Thromboplastin Ratio 1.1 Anion Gap 9.0 mmol/L (3-11) Estimated GFR () 16.2 Estimated GFR (Non- 14.0 BUN/Creatinine Ratio 11.6 (10-20) Calcium Level 8.6 mg/dl (8.5-10.1) Total Bilirubin 0.3 mg/dl (0.2-1) Aspartate Amino Transf (AST/SGOT) 42 U/L (15-37) Alanine Aminotransferase (ALT/SGPT) 110 U/L (12-78) Alkaline Phosphatase 193 U/L (45-117) Total Protein 6.3 gm/dl (6.4-8.2) Albumin 2.3 gm/dl (3.4-5.0) Globulin 4.0 gm/dl (2.5-4.0) Albumin/Globulin Ratio 0.6 (0.9-2) Bedside Glucose 273 mg/dl (70-99) 320 mg/dl (70-99) 283 mg/dl (70-99) Test 07/30/16 06:57 07/30/16 08:49 07/30/16 11:03 07/30/16 11:30 Bedside Glucose 88 mg/dl (70-99) 127 mg/dl (70-99) Anion Gap 8.0 mmol/L (3-11) Est Creatinine Clear Calc Drug Dose 18.6 ml/min Estimated GFR () 17.8 Estimated GFR (Non- 15.3 BUN/Creatinine Ratio 10.8 (10-20) Calcium Level 8.1 mg/dl (8.5-10.1) Phosphorus Level 4.0 mg/dl (2.5-4.9) Magnesium Level 2.2 mg/dl (1.8-2.4) Total Bilirubin 0.3 mg/dl (0.2-1) Aspartate Amino Transf (AST/SGOT) 28 U/L (15-37) Alanine Aminotransferase (ALT/SGPT) 81 U/L (12-78) Alkaline Phosphatase 153 U/L (45-117) Total Protein 5.6 gm/dl (6.4-8.2) Albumin 2.1 gm/dl (3.4-5.0) Globulin 3.5 gm/dl (2.5-4.0) Albumin/Globulin Ratio 0.6 (0.9-2) Test 07/30/16 15:27 07/30/16 15:29 07/30/16 15:58 Anion Gap 8.0 mmol/L (3-11) Est Creatinine Clear Calc Drug Dose 17.3 ml/min Estimated GFR () 16.2 Estimated GFR (Non- 14.0 BUN/Creatinine Ratio 10.5 (10-20) Calcium Level 7.8 mg/dl (8.5-10.1) Bedside Glucose 163 mg/dl (70-99) Allergies Coded Allergies: No Known Allergies (Verified , 07/20/16) Medications Current Inpatient Medications Medications (Trade) Dose Ordered Sig/Brendan Route Start Time Stop Time Status Last Admin Dose Admin Acetaminophen (Tylenol Tab) 650 mg Q4H PRN PO 07/29/16 19:30 08/28/16 19:29 Al Hydrox/Mg Hydrox/Simethicone (Maalox Max Susp) 15 ml Q4H PRN PO 07/29/16 19:30 08/28/16 19:29 Magnesium Hydroxide (Milk Of Magnesia Susp) 30 ml Q6H PRN PO 07/29/16 19:30 08/28/16 19:29 Polyethylene (Miralax Powder Packet) 17 gm DAILY PRN PO 07/29/16 20:00 08/28/16 19:59 Ondansetron HCl (Zofran Inj) 4 mg Q6H PRN IV 07/29/16 19:30 08/28/16 19:29 Heparin Sodium (Porcine) (Heparin Sq 5000 Unit/0.5ml) 5,000 unit Q12 SQ 07/29/16 21:30 08/28/16 21:29 07/30/16 08:12 5,000 UNIT Aspirin (Ecotrin Tab) 81 mg HS PO 07/29/16 22:00 08/28/16 21:59 Atorvastatin Calcium (Lipitor Tab) 20 mg HS PO 07/29/16 22:00 08/28/16 21:59 Future Hold Metoprolol Succinate (Toprol Xl Tab) 200 mg QAM PO 07/30/16 08:00 08/29/16 07:59 07/30/16 01:28 200 MG Multivitamins (Multivitamin Tab) 1 tab QPM PO 07/29/16 21:00 08/28/16 20:59 07/29/16 21:56 1 TAB Nifedipine (Procardia Xl Tab) 90 mg QAM PO 07/30/16 08:00 08/29/16 07:59 07/30/16 08:08 90 MG Miscellaneous Information (Order Awaiting Action) 1 ea QS N/A 07/29/16 20:00 08/28/16 19:59 Miscellaneous Information (Order Awaiting Action) 1 ea QS N/A 07/29/16 20:00 08/28/16 19:59 07/30/16 08:05 1 EA Insulin Aspart (novoLOG ASPART) SLIDING SCALE G... ACHS SC 07/29/16 22:00 08/28/16 21:59 07/29/16 23:29 8 UNITS Glucose (Glucose 40% Gel) 15-30 GRAMS 15 GRAMS... UD PRN PO 07/29/16 19:45 08/28/16 19:44 Glucose (Glucose Chew Tab) 4-8 Tablets 4 Tabl... UD PRN PO 07/29/16 19:45 08/28/16 19:44 Dextrose (Dextrose 50% 50ML Syringe) 25-50ML OF 50% DW IV FOR... UD PRN IV 07/29/16 19:45 08/28/16 19:44 Glucagon (Glucagon Inj) 1 mg UD PRN SQ 07/29/16 19:45 08/28/16 19:44 Hydralazine HCl (HydrALAZINE INJ) 10 mg Q4 PRN IV. 07/29/16 21:15 08/28/16 21:14 07/30/16 16:07 20 MG Meclizine HCl (Antivert Tab) 25 mg Q6H PRN PO 07/29/16 21:30 08/28/16 21:29 Insulin Glargine (Lantus Solostar Pen) 65 unit QAM SC 07/30/16 08:00 08/29/16 07:59 07/30/16 08:11 65 UNIT Dutasteride (Avodart Cap) 0.5 mg DAILY PO 07/31/16 09:00 08/30/16 08:59 Silodosin (Rapaflo) 8 mg HS PO 07/30/16 21:00 08/29/16 20:59 Isosorbide Mononitrate (Imdur Ext Rel Tab) 60 mg QAM PO 07/31/16 09:00 08/30/16 08:59 UNV Isosorbide Mononitrate (Imdur Ext Rel Tab) 30 mg NOW ONCE PO 07/30/16 17:00 07/30/16 17:01 UNV
--- NOTE | 2016-07-30 17:42 | Nephrology Consultation ---
Nephrology Consultation Date & Providers Date of Consultation: Jul 30, 2016. Primary Care Provider: Elyse Smith M.D. Referring Provider: Reason for Consultation Evaluation of acute on chronic kidney injury History of Present Illness Mr. Bravo is a 66 year old white male who is seen at the request of the [facility] [place] [facility] Hospitalist Service for evaluation of acute on chronic kidney injury. Medical records in the hospital EMR were reviewed today and are summarized as follows: Mr. Bravo has multiple sclerosis treated w/ Rebif therapy, longstanding arterial HTN, AODM, remote h/o kidney stones, diverticulosis s/p partial colectomy and BPH. His baseline creatinine had been 2.0. Renal US has revealed bilateral kidney cysts. The largest measures 10 cm involving the lower pole of the right kidney. Over the last two months Mr. Bravo has had urinary hesitancy and post void dribbling. He was seen by Urology. They recommended a GLTURP. Preoperative laboratory studies revealed that creatinine had risen to 4.0 w/ EGFR 15 cc/min. LFT's were also increased to ~ 150. Nephrology was notified. ARB and statin therapy were discontinued. Repeat laboratory studies were unchanged. Admission was advised for santoyo catheter insertion, repeat renal US and monitoring of LFT's. Past Medical/Surgical History Medical: # Multiple sclerosis treated w/ Rebif therapy # Longstanding arterial HTN # AODM # Remote h/o kidney stones # Diverticulosis s/p partial colectomy # BPH Surgical: # Partial colectomy due to diverticulosis Allergies Coded Allergies: No Known Allergies (Verified , 07/20/16) Inpatient Medications Current Inpatient Medications Medications (Trade) Dose Ordered Sig/Brendan Route Start Time Stop Time Status Last Admin Dose Admin Acetaminophen (Tylenol Tab) 650 mg Q4H PRN PO 07/29/16 19:30 08/28/16 19:29 Al Hydrox/Mg Hydrox/Simethicone (Maalox Max Susp) 15 ml Q4H PRN PO 07/29/16 19:30 08/28/16 19:29 Magnesium Hydroxide (Milk Of Magnesia Susp) 30 ml Q6H PRN PO 07/29/16 19:30 08/28/16 19:29 Polyethylene (Miralax Powder Packet) 17 gm DAILY PRN PO 07/29/16 20:00 08/28/16 19:59 Ondansetron HCl (Zofran Inj) 4 mg Q6H PRN IV 07/29/16 19:30 08/28/16 19:29 Heparin Sodium (Porcine) (Heparin Sq 5000 Unit/0.5ml) 5,000 unit Q12 SQ 07/29/16 21:30 08/28/16 21:29 07/30/16 08:12 5,000 UNIT Aspirin (Ecotrin Tab) 81 mg HS PO 07/29/16 22:00 08/28/16 21:59 Atorvastatin Calcium (Lipitor Tab) 20 mg HS PO 07/29/16 22:00 08/28/16 21:59 Future Hold Metoprolol Succinate (Toprol Xl Tab) 200 mg QAM PO 07/30/16 08:00 08/29/16 07:59 07/30/16 01:28 200 MG Multivitamins (Multivitamin Tab) 1 tab QPM PO 07/29/16 21:00 08/28/16 20:59 07/29/16 21:56 1 TAB Nifedipine (Procardia Xl Tab) 90 mg QAM PO 07/30/16 08:00 08/29/16 07:59 07/30/16 08:08 90 MG Miscellaneous Information (Order Awaiting Action) 1 ea QS N/A 07/29/16 20:00 08/28/16 19:59 Miscellaneous Information (Order Awaiting Action) 1 ea QS N/A 07/29/16 20:00 08/28/16 19:59 07/30/16 08:05 1 EA Insulin Aspart (novoLOG ASPART) SLIDING SCALE G... ACHS SC 07/29/16 22:00 08/28/16 21:59 07/29/16 23:29 8 UNITS Glucose (Glucose 40% Gel) 15-30 GRAMS 15 GRAMS... UD PRN PO 07/29/16 19:45 08/28/16 19:44 Glucose (Glucose Chew Tab) 4-8 Tablets 4 Tabl... UD PRN PO 07/29/16 19:45 08/28/16 19:44 Dextrose (Dextrose 50% 50ML Syringe) 25-50ML OF 50% DW IV FOR... UD PRN IV 07/29/16 19:45 08/28/16 19:44 Glucagon (Glucagon Inj) 1 mg UD PRN SQ 07/29/16 19:45 08/28/16 19:44 Hydralazine HCl (HydrALAZINE INJ) 10 mg Q4 PRN IV. 07/29/16 21:15 08/28/16 21:14 07/30/16 16:07 20 MG Meclizine HCl (Antivert Tab) 25 mg Q6H PRN PO 07/29/16 21:30 08/28/16 21:29 Insulin Glargine (Lantus Solostar Pen) 65 unit QAM SC 07/30/16 08:00 08/29/16 07:59 07/30/16 08:11 65 UNIT Dutasteride (Avodart Cap) 0.5 mg DAILY PO 07/31/16 09:00 08/30/16 08:59 Silodosin (Rapaflo) 8 mg HS PO 07/30/16 21:00 08/29/16 20:59 Isosorbide Mononitrate (Imdur Ext Rel Tab) 60 mg QAM PO 07/31/16 09:00 08/30/16 08:59 UNV Isosorbide Mononitrate (Imdur Ext Rel Tab) 30 mg NOW ONCE PO 07/30/16 17:00 07/30/16 17:01 UNV Family History Negative for CKD / ESRD Social History Smoking Status: Never Smoker Alcohol Use: none Drug Use: none Marital Status: Housing Status: lives with family Occupation: retired . Retired. Never a smoker Review of Systems Constitutional: No fever Respiratory: No cough Cardiovascular: No chest pain Abdomen: No nausea, No pain A complete review of systems was performed. Pertinent positives are noted above. All other systems are negative. Physical Exam Date Time Temp Pulse Resp B/P Pulse Ox O2 Delivery O2 Flow Rate FiO2 07/30/16 16:00 Room Air 07/30/16 15:20 37.2 81 16 184/92 97 Room Air 07/30/16 13:32 80 193/87 07/30/16 13:10 80 194/89 07/30/16 12:23 36.9 81 20 185/87 98 Room Air 07/30/16 12:00 Room Air 07/30/16 10:15 84 181/86 07/30/16 09:54 82 198/86 07/30/16 08:00 Room Air 07/30/16 07:50 37.1 88 18 200/89 98 Room Air 07/30/16 05:31 36.9 85 20 199/93 98 Room Air 85 196/104 07/30/16 05:13 36.6 87 16 97 0.0 07/30/16 03:36 87 18 195/91 95 07/29/16 23:01 36.8 82 18 199/88 97 Room Air 07/29/16 20:00 189/90 07/29/16 19:02 36.4 70 20 192/90 97 Room Air 07/29/16 18:53 36.4 70 20 192/90 97 Room Air 07/29/16 18:53 97 Room Air General Appearance: no apparent distress Head: normocephalic, atraumatic Eyes: PERRL, EOMI Neck: no adenopathy Respiratory/Chest: lungs clear Cardiovascular: regular rate, rhythm Abdomen/GI: normal bowel sounds, non tender, soft Genitourinary - Male: + pertinent finding (santoyo catheter in place draining clear yellow urine) Back: no CVA tenderness Extremities/Musculoskelatal: no pedal edema Neurologic/Psych: alert, oriented x 3 Laboratory Results Last 24 Hours Test 07/29/16 20:10 07/29/16 20:14 07/29/16 22:43 07/30/16 00:12 White Blood Count 6.59 K/uL Red Blood Count 3.13 M/uL Hemoglobin 9.1 g/dL Hematocrit 25.9 % Mean Corpuscular Volume 82.7 fL Mean Corpuscular Hemoglobin 29.1 pg Mean Corpuscular Hemoglobin Concent 35.1 g/dl Platelet Count 184 K/uL Mean Platelet Volume 10.4 fL Neutrophils (%) (Auto) 75.9 % Lymphocytes (%) (Auto) 15.0 % Monocytes (%) (Auto) 8.0 % Eosinophils (%) (Auto) 0.6 % Basophils (%) (Auto) 0.3 % Neutrophils # (Auto) 5.00 K/uL Lymphocytes # (Auto) 0.99 K/uL Monocytes # (Auto) 0.53 K/uL Eosinophils # (Auto) 0.04 K/uL Basophils # (Auto) 0.02 K/uL RDW Standard Deviation 46.0 fL RDW Coefficient of Variation 15.2 % Immature Granulocyte % (Auto) 0.2 % Immature Granulocyte # (Auto) 0.01 K/uL Prothrombin Time 10.1 SECONDS Prothromb Time International Ratio 0.9 Activated Partial Thromboplast Time 28.1 SECONDS Partial Thromboplastin Ratio 1.1 Sodium Level 145 mmol/L Potassium Level 3.3 mmol/L Chloride Level 110 mmol/L Carbon Dioxide Level 26 mmol/L Anion Gap 9.0 mmol/L Blood Urea Nitrogen 48 mg/dl Creatinine 4.10 mg/dl Estimated GFR () 16.2 Estimated GFR (Non- 14.0 BUN/Creatinine Ratio 11.6 Random Glucose 260 mg/dl Calcium Level 8.6 mg/dl Total Bilirubin 0.3 mg/dl Aspartate Amino Transf (AST/SGOT) 42 U/L Alanine Aminotransferase (ALT/SGPT) 110 U/L Alkaline Phosphatase 193 U/L Total Protein 6.3 gm/dl Albumin 2.3 gm/dl Globulin 4.0 gm/dl Albumin/Globulin Ratio 0.6 Bedside Glucose 273 mg/dl 320 mg/dl 283 mg/dl Test 07/30/16 06:57 07/30/16 08:49 07/30/16 11:03 07/30/16 11:30 Bedside Glucose 88 mg/dl 127 mg/dl Sodium Level 148 mmol/L Potassium Level 3.0 mmol/L Chloride Level 115 mmol/L Carbon Dioxide Level 25 mmol/L Anion Gap 8.0 mmol/L Blood Urea Nitrogen 41 mg/dl Creatinine 3.80 mg/dl Est Creatinine Clear Calc Drug Dose 18.6 ml/min Estimated GFR () 17.8 Estimated GFR (Non- 15.3 BUN/Creatinine Ratio 10.8 Random Glucose 147 mg/dl Calcium Level 8.1 mg/dl Phosphorus Level 4.0 mg/dl Magnesium Level 2.2 mg/dl Total Bilirubin 0.3 mg/dl Aspartate Amino Transf (AST/SGOT) 28 U/L Alanine Aminotransferase (ALT/SGPT) 81 U/L Alkaline Phosphatase 153 U/L Total Protein 5.6 gm/dl Albumin 2.1 gm/dl Globulin 3.5 gm/dl Albumin/Globulin Ratio 0.6 Test 07/30/16 15:27 07/30/16 15:29 07/30/16 15:58 Sodium Level 147 mmol/L Potassium Level 3.3 mmol/L Chloride Level 115 mmol/L Carbon Dioxide Level 24 mmol/L Anion Gap 8.0 mmol/L Blood Urea Nitrogen 43 mg/dl Creatinine 4.10 mg/dl Est Creatinine Clear Calc Drug Dose 17.3 ml/min Estimated GFR () 16.2 Estimated GFR (Non- 14.0 BUN/Creatinine Ratio 10.5 Random Glucose 162 mg/dl Calcium Level 7.8 mg/dl Bedside Glucose 163 mg/dl Impression (1) Renal failure (ARF), acute on chronic (2) Hypertension (3) Diabetes (4) Multiple sclerosis (5) BPH (benign prostatic hyperplasia) (6) Abnormal LFTs (liver function tests) (7) Proteinuria Patient with acute on chronic kidney injury and elevated LFT's. No improvement despite discontinuation of ARB and statin therapy. Santoyo catheter placed and renal US ordered to evaluate for post obstructive cause of renal failure. Clcr is down to 15 cc/min. Patient has nephrotic range proteinuria. 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 Multiple cysts within both kidneys has precluded kidney biopsy. Recommendations -- Continue to hold ARB and statin -- Santoyo catheter to gravity -- Monitor kidney function -- Renal US reviewed today. No hydro. Multiple cysts within both kidneys. 10 cm cyst involves the lower pole of right kidney -- Will ask Urology to evaluate -- Proteinuria is likely related to HTN and AODM. Will check serum free light chains, LETY, ANCA, complement levels. Kidney cysts preclude biopsy -- Protect left arm for dialysis access -- If no improvement in kidney function with the above measures will order vein mapping and consult vascular surgery for AVF -- Will titrate Imdur to improve bp control -- Discussed with patient and his that decline in kidney function may require initiation of HD. Vascular access and the process of dialysis discussed in detail
[2016-07-30] MEDS ORDERED: METOPROLOL TARTRATE 1 MG/ML VIAL IV PRN (19:45)
[2016-07-30] MEDS: SILODOSIN 8 MG CAP PO SCH ×2 (20:41)
[2016-07-30] MEDS: ASPIRIN 81 MG ECTAB PO SCH (20:41)
[2016-07-30] MEDS: MULTIVITAMIN TAB PO SCH (20:41)
[2016-07-31] VITALS (7 sets, daily range): BP systolic 118–181; BP diastolic 75–83; PULSE 75–81; TEMP 36.7–37.1; O2SAT 96–97
[2016-07-31 06:13] LABS: CALCIUM 8.1 mg/dl (8.5-10.1); CREATININE 4.1 mg/dl (0.60-1.40); POTASSIUM 3.2 mmol/L (3.5-5.1)
[2016-07-31] MEDS: INSULIN ASPART 100 UNITS/ML 3 ML PEN SC SCH ×4 (07:00→22:18)
[2016-07-31] MEDS: RAPAFLO~ORDER AWAITING ACTION SCH ×2 (08:00→16:00)
--- NOTE | 2016-07-31 08:05 | Family Medicine Progress Note ---
Progress Note Date of Service Jul 31, 2016. Subjective Pt evaluation today including: conversation w/ patient, conversation w/ family , physical exam, chart review, lab review Voiding: shafer catheter in place Patient says that he had a frontal headache last night. He was given Tylenol and IV medication and the headache, which he rates as mild in severity, improved shortly thereafter. The swelling in his legs has improved mildly. He otherwise remains asymptomatic despite elevated BPs. He slept well, is tolerating diet and has no other questions or concerns at this time. Constitutional: No chills, No fever Eyes: No eye pain, No worsening of vision ENT: No tinnitus Respiratory: No cough, No shortness of breath Cardiovascular: + edema, No chest pain, No palpitations Abdomen: No nausea, No pain, No vomiting Objective Vital Signs Date Time Temp Pulse Resp B/P Pulse Ox O2 Delivery O2 Flow Rate FiO2 07/31/16 07:44 36.9 77 18 181/76 96 Room Air 07/31/16 04:15 37.0 76 18 169/75 96 07/31/16 04:15 Room Air 07/31/16 01:00 36.7 76 18 161/79 97 07/31/16 00:32 Room Air 07/30/16 20:52 Room Air 07/30/16 19:16 36.8 77 18 176/82 98 Room Air 07/30/16 16:00 Room Air 07/30/16 15:20 37.2 81 16 184/92 97 Room Air 07/30/16 13:32 80 193/87 07/30/16 13:10 80 194/89 07/30/16 12:23 36.9 81 20 185/87 98 Room Air 07/30/16 12:00 Room Air 07/30/16 10:15 84 181/86 07/30/16 09:54 82 198/86 Physical Exam General Appearance: WD/WN, no apparent distress Eyes: normal inspection ENT: hearing grossly normal Neck: supple, no adenopathy, no JVD Respiratory/Chest: lungs clear, normal breath sounds, no respiratory distress, no accessory muscle use Cardiovascular: regular rate, rhythm, no murmur Abdomen: normal bowel sounds, non tender, soft Extremities: normal inspection, no calf tenderness, + pedal edema (trace) Neurologic/Psychiatric: alert, normal mood/affect, oriented x 3 Skin: normal color, warm/dry, no rash Laboratory Results Results Past 24 Hours Test 07/31/16 05:18 07/31/16 06:58 07/31/16 11:04 07/31/16 14:00 Range/Units Erythrocyte Sedimentation Rate 31 0-14 mm/hr Sodium Level 149 136-145 mmol/L Potassium Level 3.2 3.5-5.1 mmol/L Chloride Level 115 98-107 mmol/L Carbon Dioxide Level 26 21-32 mmol/L Anion Gap 8.0 3-11 mmol/L Blood Urea Nitrogen 45 7-18 mg/dl Creatinine 4.10 0.60-1.40 mg/dl Est Creatinine Clear Calc Drug Dose 17.3 ml/min Estimated GFR () 16.2 Estimated GFR (Non- 14.0 BUN/Creatinine Ratio 11.0 10-20 Random Glucose 64 70-99 mg/dl Calcium Level 8.1 8.5-10.1 mg/dl Bedside Glucose 72 177 70-99 mg/dl Urine Color YELLOW Urine Appearance CLEAR CLEAR Urine pH 6.5 4.5-7.5 Urine Specific [place] 1.020 1.000-1.030 Urine Protein 4+ NEG Urine Glucose (UA) 2+ NEG Urine Ketones NEG NEG Urine Occult Blood 1+ NEG Urine Nitrite NEG NEG Urine Bilirubin NEG NEG Urine Urobilinogen NEG NEG Urine Leukocyte Esterase NEG NEG Urine WBC (Auto) 5-10 0-5 /hpf Urine RBC (Auto) 5-10 0-4 /hpf Urine Hyaline Casts (Auto) 5-10 0-5 /lpf Urine Epithelial Cells (Auto) >30 0-5 /lpf Urine Bacteria (Auto) NEG NEG Urine Renal Epithelial Cells 0-5 0-5 /lpf Urine Pathogenic Casts 0-3 GRANULAR CASTS 0 /lpf Test 07/31/16 15:57 07/31/16 16:13 07/31/16 20:16 Range/Units Bedside Glucose 176 203 70-99 mg/dl Sodium Level 145 136-145 mmol/L Potassium Level 3.5 3.5-5.1 mmol/L Chloride Level 112 98-107 mmol/L Carbon Dioxide Level 24 21-32 mmol/L Anion Gap 9.0 3-11 mmol/L Blood Urea Nitrogen 49 7-18 mg/dl Creatinine 4.40 0.60-1.40 mg/dl Est Creatinine Clear Calc Drug Dose 16.1 ml/min Estimated GFR () 14.9 Estimated GFR (Non- 12.8 BUN/Creatinine Ratio 11.2 10-20 Random Glucose 170 70-99 mg/dl Calcium Level 8.1 8.5-10.1 mg/dl Total Bilirubin 0.2 0.2-1 mg/dl Direct Bilirubin < 0.1 0-0.2 mg/dl Aspartate Amino Transf (AST/SGOT) 23 15-37 U/L Alanine Aminotransferase (ALT/SGPT) 56 12-78 U/L Alkaline Phosphatase 135 45-117 U/L Total Protein 5.7 6.4-8.2 gm/dl Albumin 2.0 3.4-5.0 gm/dl Assessment and Plan 66 year old male with DM, CKD, HTN, multiple sclerosis, and BPH directly admitted for hypertensive urgency with possible ARF Hypertensive - Continue metoprolol succinate PO 200mg qAM, nifedipine PO 90mg qAM, Hydralazine IV 4mg PRN, Lopressor IV 5mg PRN. Imdur increased to 90mg qAM - Hold HCT/losartan in view of renal function Acute on CKD stage IV - worsening renal function likely secondary to DM nephropathy. Cr 4.1. Nephrology consulted - recs appreciated. Renal US showed multicystic changes but no hydronephrosis. Nephrotic range proteinuria. Vascular consulted for fistula planning. - Venous mapping today - Trend BMP, monitor I/O's - Hold statin therapy. - Trend serum free light chains, LETY, ANCA, complement levels DM - ISS + Lantus 68units BID BPH - Kuday Catheter in situ. Urology consulted - recs appreciated. BPH not likely cause of progression in CKD as no improvement in kidney function with shafer. - Continue Silodosin 8mg HS and Avodart 0.5mg daily - Discontinue shafer tomorrow AM, with trial of void MS - Hold Rebif in view of abnormal LFTs Prophylaxis - Heparin Continued [facility] stay due to: abnormal vital signs, multiple IV medications needed Discharge planning: home Resident Tracking Resident Involvement: Resident Care Provided Care Provided: Adult Hospital Medicine History Resident Physician Supervision Note: I was present with Dr. Nielsen during the history and exam. I discussed the case with the resident and agree with the findings and plan as documented in the note. Any exceptions or clarifications are listed here. Pt seen and examined at bedside. Overnight, pressures continued to be elevated with sx of mild LEWIS relieved by APAP and BP PRNs. Pt feels that his swelling has improved and he is resting comfortably. General Appearance: WD/WN, no apparent distress Respiratory: chest non-tender, lungs clear, no respiratory distress Cardiovascular: normal peripheral pulses, regular rate, rhythm, no murmur, other (trace b/l pitting edema to the [place]) Gastrointestinal: normal bowel sounds, non tender, soft Assessment/Plan 66 y/o male h/o MS on Rebif, HTN, AODM presents w/ hypertensive emergency, acute on chronic renal disease HTN - Lopressor IV and hydralazine IV PRNs. Increase imdur to 90mg. Continue metoprolol, nifedipine. Acute exacerbation of CKD - trend BMP daily. Monitor I/O. Holding statin therapy. F/U serum free light chains, LETY, ANCA, complement levels pending. Nephrology aware, input appreciated - cleared for discharge from nephro perspective. DMII - Lantus w/ ISS BPH - continue avodart and silodosin DVT PPX: Heparin Dispo: likely for discharge tomorrow morning if stable on new BP regimen.
[2016-07-31] MEDS: INSULIN GLARGINE SOLOSTAR 100 UNITS/ML 3 ML PEN SC SCH ×2 (08:30→08:59)
[2016-07-31] MEDS: NIFEdipine 30 MG CR TAB PO SCH (08:57)
[2016-07-31] MEDS: METOPROLOL SUCC 50MG EXT REL TAB PO SCH (08:57)
[2016-07-31] MEDS: HEPARIN SOD 5000 UNIT/0.5 ML CARP SQ SCH ×2 (08:59→22:18)
[2016-07-31] MEDS ORDERED: DUTASTERIDE 0.5 MG CAP PO SCH (09:00)
[2016-07-31] MEDS ORDERED: ISOSORBIDE MONONITRATE 60 MG TABCR PO SCH (09:00)
--- NOTE | 2016-07-31 10:03 | Surgery Consultation ---
Consultation Date of Service Jul 31, 2016. (Ofe Anthony, CHAGO) Chief Complaint ESRD, need AVF creation (Ofe Anthony PA-C) History of Present Illness The patient is a 66 year old male with HTN, admitted with acute on chronic renal failure, seen in consultation today for AVF creation. Pt not yet on HD, but likely will need in near future. Pt states feeling fine. Denies LEWSI, fever, chills, chest pain, SOB, abd pain, N/v, rest pain, claudication, other complaints. (Ofe Anthony, CHAGO) Vitals Vital Signs Past 12 Hours Date Time Temp Pulse Resp B/P Pulse Ox O2 Delivery O2 Flow Rate FiO2 07/31/16 07:44 36.9 77 18 181/76 96 Room Air 07/31/16 04:15 37.0 76 18 169/75 96 07/31/16 04:15 Room Air 07/31/16 01:00 36.7 76 18 161/79 97 07/31/16 00:32 Room Air (Ofe Anthony, CHAGO) Allergies Coded Allergies: No Known Allergies (Verified , 07/20/16) Home Medications Scheduled Acetaminophen (Tylenol), 1 TAB PO PRN Aspirin (Aspirin Ec), 81 MG PO HS Atorvastatin (Lipitor), 20 MG PO HS Dutasteride (Avodart), 0.5 MG PO HS Ergocalciferol (Vitamin D 40208 Unit), 50,000 UNIT PO MONTH Hctz/Losartan (Hyzaar 25MG/100MG), 1 TAB PO QAM Insulin Glargine (Lantus Solostar), 68 SC BID Interferon Beta-1A (Rebif), 0.5 ML INJ 3XWEEK Isosorbide Mononitrate Ext Rel (Imdur Ext Rel), 30 MG PO QAM Meclizine Hcl (Meclizine Hcl), 1 TAB PO PRN Metoprolol Succ (Toprol Xl) (Toprol-Xl ), 200 MG PO QAM Multivitamin (Multivitamin), 1 TAB PO QPM Nifedipine Ext Rel (Procardia Xl Ext Rel), 90 MG PO QAM Silodosin (Rapaflo), 1 CAP PO HS Problem List Medical Problems: (1) Abnormal LFTs (liver function tests) (2) BPH (benign prostatic hyperplasia) (3) Diabetes (4) Hypertension (5) Multiple sclerosis (6) Proteinuria (7) Renal failure (ARF), acute on chronic (Ofe Anthony PA-C) Surgical / Medical History Hx Cardiac Surgery: No Hx Abdominal Surgery: Yes (colostomy, colostomy repair, hernia, appendectomy) Hx Cancer Surgery: No Hx Thoracic Surgery: No Hx Orthopedic: No Hx Urinary Tract Surgery: No HX Other Surgery: No Past Medical/Surgical History: Hypertension (Ofe Anthony PA-C) Family History + HTN (Ofe Anthony PA-C) Social History Smoking Status: Never Smoker Hx Tobacco Use In Past Year?: No Hx Alcohol Use - Type & Amnt: Yes (rare-single beer) Hx Substance Use -Type & Amnt: No (Ofe Anthony PA-C) Review of Systems Constitutional: No chills, No fever, No malaise Skin: No change in color Eyes: No visual changes ENMT: No sore throat Respiratory: No PHELPS, No cough, No hemoptysis, No short of breath Cardiovascular: No chest pain, No chest pressure, No edema, No intermittent claudication, No syncope Gastrointestinal: No abdominal pain, No nausea Neurologic: No dizziness, No headache, No lethargy, No numbness, No tingling ( Ofe Anthony PA-C) Physical Exam Constitutional: General Apperance: heathly-appearing, well-nourished, well-developed Level of Distress: NAD Psychiatric: Mental Status: active & alert, normal mood, normal affect Orientation: oriented except where noted, to time, to place, to person Memory: recent memory normal, remote memory normal Head: normocephalic, atraumatic Eyes: EOM: EOMI ENMT: normal ENT inspection, hearing grossly normal Neck: supple, trachea midline Lungs: Respiratory effort: no dyspnea Auscultation: no wheezing, no rales/crackles, no rhonchi, decreased breath sounds Cardiovascular: Apical Impulse: not displaced Heart Auscultation: RRR, no rubs, no gallops Peripheral Pulses: Pulses: full and equal, in all extremities except if noted Bruits: none appreciated Carotid Pulse: normal on the left, normal on the right Brachial Pulses: normal on the left, normal on the right Radial Pulse: normal on the left, normal on the right Femoral Pulse: normal on the left, normal on the right Posterior Tibialis Pulse: decreased on the left, decreased on the right Dorsalis Pedis Pulse: decreased on the left, decreased on the right Abdomen: Bowel Sounds: normal Inspection & Palpation: soft, non-distended, no tenderness, guarding & rebound Musculoskeletal: normal strength (5/5 throughout), normal tone Extremities: Upper Right: no cyanosis, no edema, no varicosities Upper Left: no cyanosis, no edema, no varicosities Lower Right: no cyanosis, no edema, no varicosities Lower Left: no cyanosis, no edema, no varicosities Neurologic: Cranial Nerves: grossly intact Sensation: grossly intact (Ofe Anthony, PA-C) Assessment and Plan ASSESSMENT and PLAN: ESRD Discussion had with pt and regarding AVF creation. Event Management Consultant will order vein mapping and pt to have AVF creation as outpt over next 1-2 weeks. Pt agreeable. Please call if needed otherwise. (Ofe Anthony, PA-C) Patient was seen, examined, and chart reviewed. Agree with exam and treatment plan of the Vascular PA. (Deng Velazquez M.D.)
--- NOTE | 2016-07-31 10:34 | Urology Consultation ---
History General Date of Service: Jul 31, 2016. Primary Care Physician: Elyse Smith M.D. Pt seen a urologist before?: Yes (Dr. Llanes) If yes, why?: BPH History of Present Illness 66 year old male admitted with acute on chronic renal failure and elevated LFTs. Pt is known to urology for BPH. Was scheduled for elective GLTURP on August [address] Llanes. This is now on hold. Baseline creatinine is 2.0. Upon admission creatinine was 3.8 and has increased to 4.1 depsite shafer placement. No hydro on renal u/s from 07/29. Pt has been taught CIC by our office in the past and has straight catheters at home. Has complaints of urinary frequency worse at night. He has been on max med therapy for his BPH- Rapaflo and dutasteride. Spoke with Dr. Gandara regarding this case and he has reviewed previous scans that are also free of hydro and evidence of significant bladder outlet obstruction. Urine culture from 07/27 showed no growth. Imaging Imaging: Renal Scan Laboratory Last 24 Hours Test 07/30/16 11:03 07/30/16 11:30 07/30/16 15:27 07/30/16 15:29 Bedside Glucose 127 mg/dl Sodium Level 147 mmol/L Potassium Level 3.3 mmol/L Chloride Level 115 mmol/L Carbon Dioxide Level 24 mmol/L Anion Gap 8.0 mmol/L Blood Urea Nitrogen 43 mg/dl Creatinine 4.10 mg/dl Est Creatinine Clear Calc Drug Dose 17.3 ml/min Estimated GFR () 16.2 Estimated GFR (Non- 14.0 BUN/Creatinine Ratio 10.5 Random Glucose 162 mg/dl Calcium Level 7.8 mg/dl Test 07/30/16 15:58 07/30/16 20:18 07/31/16 05:18 07/31/16 06:58 Bedside Glucose 163 mg/dl 137 mg/dl 72 mg/dl Erythrocyte Sedimentation Rate 31 mm/hr Sodium Level 149 mmol/L Potassium Level 3.2 mmol/L Chloride Level 115 mmol/L Carbon Dioxide Level 26 mmol/L Anion Gap 8.0 mmol/L Blood Urea Nitrogen 45 mg/dl Creatinine 4.10 mg/dl Est Creatinine Clear Calc Drug Dose 17.3 ml/min Estimated GFR () 16.2 Estimated GFR (Non- 14.0 BUN/Creatinine Ratio 11.0 Random Glucose 64 mg/dl Calcium Level 8.1 mg/dl Current Inpatient Medications Medications (Trade) Dose Ordered Sig/Brendan Route Start Time Stop Time Status Last Admin Dose Admin Acetaminophen (Tylenol Tab) 650 mg Q4H PRN PO 07/29/16 19:30 08/28/16 19:29 07/30/16 18:30 650 MG Al Hydrox/Mg Hydrox/Simethicone (Maalox Max Susp) 15 ml Q4H PRN PO 07/29/16 19:30 08/28/16 19:29 Magnesium Hydroxide (Milk Of Magnesia Susp) 30 ml Q6H PRN PO 07/29/16 19:30 08/28/16 19:29 Polyethylene (Miralax Powder Packet) 17 gm DAILY PRN PO 07/29/16 20:00 08/28/16 19:59 Ondansetron HCl (Zofran Inj) 4 mg Q6H PRN IV 07/29/16 19:30 08/28/16 19:29 Heparin Sodium (Porcine) (Heparin Sq 5000 Unit/0.5ml) 5,000 unit Q12 SQ 07/29/16 21:30 08/28/16 21:29 07/31/16 08:59 5,000 UNIT Aspirin (Ecotrin Tab) 81 mg HS PO 07/29/16 22:00 08/28/16 21:59 07/30/16 20:41 81 MG Atorvastatin Calcium (Lipitor Tab) 20 mg HS PO 07/29/16 22:00 08/28/16 21:59 Future Hold Metoprolol Succinate (Toprol Xl Tab) 200 mg QAM PO 07/30/16 08:00 08/29/16 07:59 07/31/16 08:57 200 MG Multivitamins (Multivitamin Tab) 1 tab QPM PO 07/29/16 21:00 08/28/16 20:59 07/30/16 20:41 1 TAB Nifedipine (Procardia Xl Tab) 90 mg QAM PO 07/30/16 08:00 08/29/16 07:59 07/31/16 08:57 90 MG Miscellaneous Information (Order Awaiting Action) 1 ea QS N/A 07/29/16 20:00 08/28/16 19:59 07/30/16 20:24 1 EA Miscellaneous Information (Order Awaiting Action) 1 ea QS N/A 07/29/16 20:00 08/28/16 19:59 07/30/16 20:24 1 EA Insulin Aspart (novoLOG ASPART) SLIDING SCALE G... ACHS SC 07/29/16 22:00 08/28/16 21:59 07/29/16 23:29 8 UNITS Glucose (Glucose 40% Gel) 15-30 GRAMS 15 GRAMS... UD PRN PO 07/29/16 19:45 08/28/16 19:44 Glucose (Glucose Chew Tab) 4-8 Tablets 4 Tabl... UD PRN PO 07/29/16 19:45 08/28/16 19:44 Dextrose (Dextrose 50% 50ML Syringe) 25-50ML OF 50% DW IV FOR... UD PRN IV 07/29/16 19:45 08/28/16 19:44 Glucagon (Glucagon Inj) 1 mg UD PRN SQ 07/29/16 19:45 08/28/16 19:44 Hydralazine HCl (HydrALAZINE INJ) 10 mg Q4 PRN IV. 07/29/16 21:15 08/28/16 21:14 07/30/16 20:42 10 MG Meclizine HCl (Antivert Tab) 25 mg Q6H PRN PO 07/29/16 21:30 08/28/16 21:29 Insulin Glargine (Lantus Solostar Pen) 65 unit QAM SC 07/30/16 08:00 08/29/16 07:59 07/31/16 08:59 65 UNIT Dutasteride (Avodart Cap) 0.5 mg DAILY PO 07/31/16 09:00 08/30/16 08:59 07/31/16 08:56 0.5 MG Silodosin (Rapaflo) 8 mg HS PO 07/30/16 21:00 08/29/16 20:59 07/30/16 20:41 8 MG Metoprolol Tartrate (Lopressor Iv) 5 mg Q6 PRN IV 07/30/16 19:45 08/29/16 19:44 Isosorbide Mononitrate (Imdur Ext Rel Tab) 90 mg QAM PO 07/31/16 11:00 08/30/16 10:59 Labs were reviewed and are within normal limits unless listed below. Labs are available in the chart and at [facility] Past History BPH, diabetes, hypertension, other (MS adn CKD) Past Surgical History: colostomy Social History Hx Tobacco Use In Past Year?: No Marital status: Housing status: lives with family Occupation status: retired Immunizations History of Influenza Vaccine: Yes Influenza Vaccine Date: Feb 08, 2005 History of Tetanus Vaccine?: No History of Pneumococcal: Yes Pneumococcal Date: Jul 10, 2003 History of Hepatitis B Vaccine: Yes Hepatitis Immunization Date: Jul 09, 2004 History of MDRO No Allergies Coded Allergies: No Known Allergies (Verified , 07/20/16) Medications Home Medications: Home Meds and Scripts Medications Dose Route/Sig Max Daily Dose Days Date Category Dose Instructions Lantus Solostar (Insulin Glargine) 100 Unit/Ml Inj 68 SC BID 07/29/16 Reported Tylenol (Acetaminophen) 500 Mg Tab 1 Tab PO PRN 3 07/20/16 Reported Vitamin D 73165 Unit (Ergocalciferol) 50,000 Unit Cap 50,000 Unit PO MONTH 07/20/16 Reported FIRST OF MONTH Rebif (Interferon Beta-1A) 44 Mcg/0.5 Ml Inj 0.5 Ml INJ 3XWEEK 07/20/16 Reported Wednesday HS Rapaflo (Silodosin) 8 Mg Cap 1 Cap PO HS 90 07/20/16 Reported Procardia Xl Ext Rel (Nifedipine) 30 Mg Tabcr 90 Mg PO QAM 07/20/16 Reported Multivitamin (Multivitamins) Tab 1 Tab PO QPM 07/20/16 Reported Toprol-Xl (Metoprolol Succinate) 100 Mg Tabcr 200 Mg PO QAM 07/20/16 Reported Meclizine Hcl 25 Mg Tab 1 Tab PO PRN 10 07/20/16 Reported Imdur Ext Rel (Isosorbide Mononitrate) 30 Mg Ertab 30 Mg PO QAM 07/20/16 Reported Hyzaar 25MG/100MG (HCTZ/Losartan Potassium) Tab 1 Tab PO QAM 07/20/16 Reported Avodart (Dutasteride) 0.5 Mg Cap 0.5 Mg PO HS 07/20/16 Reported Lipitor (Atorvastatin Calcium) 20 Mg Tab 20 Mg PO HS 07/20/16 Reported Aspirin Ec (Aspirin) 81 Mg Tab 81 Mg PO HS 07/20/16 Reported Inpatient Medications: Current Inpatient Medications Medications (Trade) Dose Ordered Sig/Brendan Route Start Time Stop Time Status Last Admin Dose Admin Acetaminophen (Tylenol Tab) 650 mg Q4H PRN PO 07/29/16 19:30 08/28/16 19:29 07/30/16 18:30 650 MG Al Hydrox/Mg Hydrox/Simethicone (Maalox Max Susp) 15 ml Q4H PRN PO 07/29/16 19:30 08/28/16 19:29 Magnesium Hydroxide (Milk Of Magnesia Susp) 30 ml Q6H PRN PO 07/29/16 19:30 08/28/16 19:29 Polyethylene (Miralax Powder Packet) 17 gm DAILY PRN PO 07/29/16 20:00 08/28/16 19:59 Ondansetron HCl (Zofran Inj) 4 mg Q6H PRN IV 07/29/16 19:30 08/28/16 19:29 Heparin Sodium (Porcine) (Heparin Sq 5000 Unit/0.5ml) 5,000 unit Q12 SQ 07/29/16 21:30 08/28/16 21:29 07/31/16 08:59 5,000 UNIT Aspirin (Ecotrin Tab) 81 mg HS PO 07/29/16 22:00 08/28/16 21:59 07/30/16 20:41 81 MG Atorvastatin Calcium (Lipitor Tab) 20 mg HS PO 07/29/16 22:00 08/28/16 21:59 Future Hold Metoprolol Succinate (Toprol Xl Tab) 200 mg QAM PO 07/30/16 08:00 08/29/16 07:59 07/31/16 08:57 200 MG Multivitamins (Multivitamin Tab) 1 tab QPM PO 07/29/16 21:00 08/28/16 20:59 07/30/16 20:41 1 TAB Nifedipine (Procardia Xl Tab) 90 mg QAM PO 07/30/16 08:00 08/29/16 07:59 07/31/16 08:57 90 MG Miscellaneous Information (Order Awaiting Action) 1 ea QS N/A 07/29/16 20:00 08/28/16 19:59 07/30/16 20:24 1 EA Miscellaneous Information (Order Awaiting Action) 1 ea QS N/A 07/29/16 20:00 08/28/16 19:59 07/30/16 20:24 1 EA Insulin Aspart (novoLOG ASPART) SLIDING SCALE G... ACHS SC 07/29/16 22:00 08/28/16 21:59 07/29/16 23:29 8 UNITS Glucose (Glucose 40% Gel) 15-30 GRAMS 15 GRAMS... UD PRN PO 07/29/16 19:45 08/28/16 19:44 Glucose (Glucose Chew Tab) 4-8 Tablets 4 Tabl... UD PRN PO 07/29/16 19:45 08/28/16 19:44 Dextrose (Dextrose 50% 50ML Syringe) 25-50ML OF 50% DW IV FOR... UD PRN IV 07/29/16 19:45 08/28/16 19:44 Glucagon (Glucagon Inj) 1 mg UD PRN SQ 07/29/16 19:45 08/28/16 19:44 Hydralazine HCl (HydrALAZINE INJ) 10 mg Q4 PRN IV. 07/29/16 21:15 08/28/16 21:14 07/30/16 20:42 10 MG Meclizine HCl (Antivert Tab) 25 mg Q6H PRN PO 07/29/16 21:30 08/28/16 21:29 Insulin Glargine (Lantus Solostar Pen) 65 unit QAM SC 07/30/16 08:00 08/29/16 07:59 07/31/16 08:59 65 UNIT Dutasteride (Avodart Cap) 0.5 mg DAILY PO 07/31/16 09:00 08/30/16 08:59 07/31/16 08:56 0.5 MG Silodosin (Rapaflo) 8 mg HS PO 07/30/16 21:00 08/29/16 20:59 07/30/16 20:41 8 MG Metoprolol Tartrate (Lopressor Iv) 5 mg Q6 PRN IV 07/30/16 19:45 08/29/16 19:44 Isosorbide Mononitrate (Imdur Ext Rel Tab) 90 mg QAM PO 07/31/16 11:00 08/30/16 10:59 Review of Systems Review of Systems Constitutional: No chills, No fever Eyes: No blurred vision Neurological: No dizzy Gastrointestinal: No abdominal pain Cardiovascular: No chest pain Respiratory: No shortness of breath Skin: No rash Blood / Lymphatic: No see HPI Ears / Nose / Throat: No hearing loss Psychologic / Mental: No nervous Male : + frequent urination, + nocturia more than once/night, + see HPI Physical Exam Vital Signs: Vital Signs Past 12 Hours Date Time Temp Pulse Resp B/P Pulse Ox O2 Delivery O2 Flow Rate FiO2 07/31/16 07:44 36.9 77 18 181/76 96 Room Air 07/31/16 04:15 37.0 76 18 169/75 96 07/31/16 04:15 Room Air 07/31/16 01:00 36.7 76 18 161/79 97 07/31/16 00:32 Room Air Physical Exam: General Appearance: WD/WN, no apparent distress ENT: hearing grossly normal Neck: no JVD Respiratory/Chest: no respiratory distress, no accessory muscle use Extremities: normal inspection, no pedal edema, no calf tenderness Neurologic/Psychiatric: alert, normal mood/affect, oriented x 3 Skin: normal color, warm/dry, no rash Assessment & Plan Assessment & Plan Imaging: Renal Scan Renal failure BPH Do not suspect bladder outlet obstruction is contributing to his renal failure. Shafer was placed and no improvement in kidney function. No hydro seen on renal u /s or previous scans. Discussed case with Dr. Poe and Dr. Gandara. Ok to remove shafer pt may CIC at home as needed. He is aware how to perform. Will need to postpone his GLTURP for 1-2 months- plan is to have A/V fistula placed for dialysis prior to procedure. Will update his surgeon Dr. Llanes as well and determine best date to reschedule TURP. Our office will be in touch with pt. Thanks for the consult. No further management at this time. pt seen and agree with above
[2016-07-31] MEDS ORDERED: POTASSIUM CHLORIDE 10 MEQ TABCR PO STA (10:58)
--- NOTE | 2016-07-31 12:25 | Nephrology Progress Note ---
Nephrology Progress Note Date of Service Jul 31, 2016. Chief Complaint Evaluation of acute on chronic kidney injury Subjective Mr. Bravo was seen & examined in his hospital room this morning. He currently denies angina, dyspnea or uremic symptoms. Shafer catheter is draining clear yellow urine. Review of Systems Constitutional: No fever Cardiovascular: No chest pain Respiratory: No dyspnea at rest Abdomen: No nausea, No pain, No vomiting Extremities: No leg edema A complete review of systems was performed. Pertinent positives are noted above. All other systems are negative. Vital Signs Last 8 Hrs Date Time Temp Pulse Resp B/P Pulse Ox O2 Delivery O2 Flow Rate FiO2 07/31/16 12:12 36.7 81 18 118/79 96 Room Air 07/31/16 08:30 Room Air 07/31/16 07:44 36.9 77 18 181/76 96 Room Air I & O 24-Hour Column 07/31/16 08:00 Intake Total 1040 ml Output Total 1400 ml Balance -360 ml Last Recorded Weight Weight (Kilograms): 84.200 Physical Exam General Appearance: no apparent distress Head: normocephalic, atraumatic Eyes: PERRL, EOMI Respiratory/Chest: lungs clear Cardiovascular: regular rate, rhythm Abdomen/GI: normal bowel sounds, non tender, soft Extremities/Musculoskelatal: no pedal edema Neurologic/Psych: alert, oriented x 3 Family History Negative for CKD / ESRD Social History Alcohol Use: none Drug Use: none Marital Status: Housing Status: lives with family Occupation: retired . Retired. Never a smoker Laboratory Results Past 24 Hours 07/30/16 15:27 07/31/16 05:18 Test 07/30/16 15:27 07/30/16 15:29 07/30/16 15:58 07/30/16 20:18 Anion Gap 8.0 mmol/L (3-11) Est Creatinine Clear Calc Drug Dose 17.3 ml/min Estimated GFR () 16.2 Estimated GFR (Non- 14.0 BUN/Creatinine Ratio 10.5 (10-20) Calcium Level 7.8 mg/dl (8.5-10.1) Bedside Glucose 163 mg/dl (70-99) 137 mg/dl (70-99) Test 07/31/16 05:18 07/31/16 06:58 07/31/16 11:04 Erythrocyte Sedimentation Rate 31 mm/hr (0-14) Anion Gap 8.0 mmol/L (3-11) Est Creatinine Clear Calc Drug Dose 17.3 ml/min Estimated GFR () 16.2 Estimated GFR (Non- 14.0 BUN/Creatinine Ratio 11.0 (10-20) Calcium Level 8.1 mg/dl (8.5-10.1) Bedside Glucose 72 mg/dl (70-99) 177 mg/dl (70-99) Allergies Coded Allergies: No Known Allergies (Verified , 07/20/16) Medications Current Inpatient Medications Medications (Trade) Dose Ordered Sig/Brendan Route Start Time Stop Time Status Last Admin Dose Admin Acetaminophen (Tylenol Tab) 650 mg Q4H PRN PO 07/29/16 19:30 08/28/16 19:29 07/30/16 18:30 650 MG Al Hydrox/Mg Hydrox/Simethicone (Maalox Max Susp) 15 ml Q4H PRN PO 07/29/16 19:30 08/28/16 19:29 Magnesium Hydroxide (Milk Of Magnesia Susp) 30 ml Q6H PRN PO 07/29/16 19:30 08/28/16 19:29 Polyethylene (Miralax Powder Packet) 17 gm DAILY PRN PO 07/29/16 20:00 08/28/16 19:59 Ondansetron HCl (Zofran Inj) 4 mg Q6H PRN IV 07/29/16 19:30 08/28/16 19:29 Heparin Sodium (Porcine) (Heparin Sq 5000 Unit/0.5ml) 5,000 unit Q12 SQ 07/29/16 21:30 08/28/16 21:29 07/31/16 08:59 5,000 UNIT Aspirin (Ecotrin Tab) 81 mg HS PO 07/29/16 22:00 08/28/16 21:59 07/30/16 20:41 81 MG Atorvastatin Calcium (Lipitor Tab) 20 mg HS PO 07/29/16 22:00 08/28/16 21:59 Future Hold Metoprolol Succinate (Toprol Xl Tab) 200 mg QAM PO 07/30/16 08:00 08/29/16 07:59 07/31/16 08:57 200 MG Multivitamins (Multivitamin Tab) 1 tab QPM PO 07/29/16 21:00 08/28/16 20:59 07/30/16 20:41 1 TAB Nifedipine (Procardia Xl Tab) 90 mg QAM PO 07/30/16 08:00 08/29/16 07:59 07/31/16 08:57 90 MG Miscellaneous Information (Order Awaiting Action) 1 ea QS N/A 07/29/16 20:00 08/28/16 19:59 07/30/16 20:24 1 EA Miscellaneous Information (Order Awaiting Action) 1 ea QS N/A 07/29/16 20:00 08/28/16 19:59 07/30/16 20:24 1 EA Insulin Aspart (novoLOG ASPART) SLIDING SCALE G... ACHS SC 07/29/16 22:00 08/28/16 21:59 07/29/16 23:29 8 UNITS Glucose (Glucose 40% Gel) 15-30 GRAMS 15 GRAMS... UD PRN PO 07/29/16 19:45 08/28/16 19:44 Glucose (Glucose Chew Tab) 4-8 Tablets 4 Tabl... UD PRN PO 07/29/16 19:45 08/28/16 19:44 Dextrose (Dextrose 50% 50ML Syringe) 25-50ML OF 50% DW IV FOR... UD PRN IV 07/29/16 19:45 08/28/16 19:44 Glucagon (Glucagon Inj) 1 mg UD PRN SQ 07/29/16 19:45 08/28/16 19:44 Hydralazine HCl (HydrALAZINE INJ) 10 mg Q4 PRN IV. 07/29/16 21:15 08/28/16 21:14 07/30/16 20:42 10 MG Meclizine HCl (Antivert Tab) 25 mg Q6H PRN PO 07/29/16 21:30 08/28/16 21:29 Insulin Glargine (Lantus Solostar Pen) 65 unit QAM SC 07/30/16 08:00 08/29/16 07:59 07/31/16 08:59 65 UNIT Dutasteride (Avodart Cap) 0.5 mg DAILY PO 07/31/16 09:00 08/30/16 08:59 07/31/16 08:56 0.5 MG Silodosin (Rapaflo) 8 mg HS PO 07/30/16 21:00 08/29/16 20:59 07/30/16 20:41 8 MG Metoprolol Tartrate (Lopressor Iv) 5 mg Q6 PRN IV 07/30/16 19:45 08/29/16 19:44 Isosorbide Mononitrate (Imdur Ext Rel Tab) 90 mg QAM PO 07/31/16 11:00 08/30/16 10:59 Impression (1) Renal failure (ARF), acute on chronic (2) Hypertension (3) Diabetes (4) Multiple sclerosis (5) BPH (benign prostatic hyperplasia) (6) Abnormal LFTs (liver function tests) (7) Proteinuria Patient with acute on chronic kidney injury and elevated LFT's. No improvement despite discontinuation of ARB and statin therapy. Shafer catheter placed and renal US ordered to evaluate for post obstructive cause of renal failure. Clcr is down to 15 cc/min. Patient has nephrotic range proteinuria. 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 Multiple cysts within both kidneys has precluded kidney biopsy. Recommendations -- Patient appears to have progressive CKD and is nearing ESRD -- Continue to hold ARB and statin -- Proteinuria is likely related to HTN and AODM. Will check serum free light chains, LETY, ANCA, complement levels. Kidney cysts preclude biopsy -- Urology input appreciated. Postpone TURP. Focus on vascular access placement for HD within the next 6 - 12 months -- Will d/c shafer catheter. Assess patient's ability to void -- Vascular surgery notes reviewed. Patient is scheduled for vein mapping. He will have AVF created within the next 1 - 2 weeks as outpatient -- Blood pressure control has improved. Continue current medical regimen -- OK to discharge to home if patient is able to void on his own. I have requested that my staffing and scheduling coordinator contact patient and schedule a nephrology follow up appointment in 2 - 3 weeks. Orders have been entered into EMR for laboratory testing 24 - 48 hours prior to nephrology office visit -- Will set up outpatient dialysis education classes at the [facility] HD unit
--- NOTE | 2016-07-31 13:46 | DIAGNOSTIC IMAGING REPORT ---
VENOUS DOPPLER RIGHT ARM UPPER EXTREMITY VENOUS DOPPLER HISTORY: Venous mapping. Preoperative planning. VEIN MAPPING FOR AVF CREATION - RESULTS TO DR MONTAÑO COMPARISON STUDY: None. FINDINGS: Venous mapping was performed preoperative basis. Multilevel cephalic in basilic venous diameters are obtained and are attached. IMPRESSION: Successful venous mapping. All major venous structures are patent Electronically signed by: Jorge García M.D. 07/31/2016 1:44 PM Dictated Date/Time: 07/31/2016 1:42 PM
[2016-07-31] MEDS: ISOSORBIDE MONONITRATE 30 MG TABCR PO SCH (13:59)
[2016-07-31 15:03] LABS: URINE APPEARANCE CLEAR (CLEAR); URINE BILIRUBIN NEG (NEG); URINE COLOR YELLOW; URINE EPITHELIAL CELL AUTO >30 /lpf (0-5); URINE NITRITE NEG (NEG); URINE PH 6.5 (4.5-7.5); UROBILINOGEN NEG (NEG)
[2016-07-31 15:08] LABS: MANUAL MICROSCOPIC REQUIRED? NO; REVIEW REQ? YES
[2016-07-31 15:37] LABS: URINE PATH CASTS 0-3 GRANULAR CASTS /lpf (0)
[2016-07-31 16:47] LABS: BUN/CREATININE RATIO 11.2 (10-20); CALCIUM 8.1 mg/dl (8.5-10.1); CREATININE 4.4 mg/dl (0.60-1.40); POTASSIUM 3.5 mmol/L (3.5-5.1)
[2016-07-31 18:50] LABS: ALKALINE PHOSPHATASE 135 U/L (45-117); ALT/SGPT 56 U/L (12-78); AST/SGOT 23 U/L (15-37)
[2016-07-31] MEDS: SILODOSIN 8 MG CAP PO SCH ×2 (21:54)
[2016-07-31] MEDS: ASPIRIN 81 MG ECTAB PO SCH (21:55)
[2016-07-31] MEDS: MULTIVITAMIN TAB PO SCH (21:56)
[2016-08-01] VITALS (9 sets, daily range): BP systolic 159–169; BP diastolic 72–81; PULSE 70–76; TEMP 36.5–36.9; O2SAT 95–98
[2016-08-01 06:13] LABS: BASO % 0.4 %; BASO ABS # 0.03 K/uL (0-0.2); EOS % 2.3 %; HEMATOCRIT 25.4 % (42-52); IG% 0.4 %; LYMPH % 23.4 %; LYMPH ABS # 1.65 K/uL (1.2-3.4); MEAN CELL VOLUME 83.3 fL (80-100); MEAN CORPUSCULAR HEMOGLOBIN 29.2 pg (25-34); MEAN PLATELET VOLUME 10.3 fL (7.4-10.4); MONO % 9.2 %; NEUT % 64.3 %; PLATELET COUNT 213 K/uL (130-400); RED BLOOD COUNT 3.05 M/uL (4.7-6.1); WHITE BLOOD COUNT 7.05 K/uL (4.8-10.8)
[2016-08-01 06:37] LABS: COMPLETE YES
[2016-08-01 06:47] LABS: ALB/GLOB RATIO 0.5 (0.9-2); BUN/CREATININE RATIO 11.7 (10-20); CALCIUM 8.7 mg/dl (8.5-10.1); CREATININE 4.3 mg/dl (0.60-1.40); POTASSIUM 3.5 mmol/L (3.5-5.1)
[2016-08-01] MEDS: INSULIN ASPART 100 UNITS/ML 3 ML PEN SC SCH ×2 (07:00→11:00)
[2016-08-01] MEDS: RAPAFLO~ORDER AWAITING ACTION SCH ×2 (07:54)
[2016-08-01] MEDS: ISOSORBIDE MONONITRATE 30 MG TABCR PO SCH (07:58)
[2016-08-01] MEDS: NIFEdipine 30 MG CR TAB PO SCH (07:59)
[2016-08-01] MEDS: METOPROLOL SUCC 50MG EXT REL TAB PO SCH (08:00)
[2016-08-01] MEDS: HEPARIN SOD 5000 UNIT/0.5 ML CARP SQ SCH (08:30)
--- NOTE | 2016-08-01 11:02 | Progress Note ---
Subjective Date of Service: Aug 01, 2016. Subjective Pt evaluation today including: conversation w/ patient, conversation w/ family , physical exam, chart review, conversation w/ documentation consultant Voiding: no voiding problems catheter out and pt voiding Objective Vital Signs Date Time Temp Pulse Resp B/P Pulse Ox O2 Delivery O2 Flow Rate FiO2 08/01/16 08:01 36.8 72 18 169/81 97 08/01/16 04:05 36.5 73 16 167/72 98 08/01/16 04:00 96 Room Air 08/01/16 00:20 36.7 76 16 166/78 96 Room Air 08/01/16 00:00 96 Room Air 07/31/16 20:00 96 Room Air 07/31/16 19:10 37.0 76 18 162/76 96 Room Air 07/31/16 16:30 Room Air 07/31/16 15:55 37.1 75 18 180/83 97 Room Air 07/31/16 12:30 Room Air 07/31/16 12:12 36.7 81 18 181/79 96 Room Air Physical Exam Comments: urine c/s on admission negative Laboratory Results Last 24 Hours Test 07/31/16 11:04 07/31/16 14:00 07/31/16 15:57 07/31/16 16:13 Bedside Glucose 177 mg/dl 176 mg/dl Urine Color YELLOW Urine Appearance CLEAR Urine pH 6.5 Urine Specific [place] 1.020 Urine Protein 4+ Urine Glucose (UA) 2+ Urine Ketones NEG Urine Occult Blood 1+ Urine Nitrite NEG Urine Bilirubin NEG Urine Urobilinogen NEG Urine Leukocyte Esterase NEG Urine WBC (Auto) 5-10 /hpf Urine RBC (Auto) 5-10 /hpf Urine Hyaline Casts (Auto) 5-10 /lpf Urine Epithelial Cells (Auto) >30 /lpf Urine Bacteria (Auto) NEG Urine Renal Epithelial Cells 0-5 /lpf Urine Pathogenic Casts 0-3 GRANULAR CASTS /lpf Sodium Level 145 mmol/L Potassium Level 3.5 mmol/L Chloride Level 112 mmol/L Carbon Dioxide Level 24 mmol/L Anion Gap 9.0 mmol/L Blood Urea Nitrogen 49 mg/dl Creatinine 4.40 mg/dl Est Creatinine Clear Calc Drug Dose 16.1 ml/min Estimated GFR () 14.9 Estimated GFR (Non- 12.8 BUN/Creatinine Ratio 11.2 Random Glucose 170 mg/dl Calcium Level 8.1 mg/dl Total Bilirubin 0.2 mg/dl Direct Bilirubin < 0.1 mg/dl Aspartate Amino Transf (AST/SGOT) 23 U/L Alanine Aminotransferase (ALT/SGPT) 56 U/L Alkaline Phosphatase 135 U/L Total Protein 5.7 gm/dl Albumin 2.0 gm/dl Test 07/31/16 20:16 08/01/16 05:40 08/01/16 06:54 Bedside Glucose 203 mg/dl 140 mg/dl White Blood Count 7.05 K/uL Red Blood Count 3.05 M/uL Hemoglobin 8.9 g/dL Hematocrit 25.4 % Mean Corpuscular Volume 83.3 fL Mean Corpuscular Hemoglobin 29.2 pg Mean Corpuscular Hemoglobin Concent 35.0 g/dl Platelet Count 213 K/uL Mean Platelet Volume 10.3 fL Neutrophils (%) (Auto) 64.3 % Lymphocytes (%) (Auto) 23.4 % Monocytes (%) (Auto) 9.2 % Eosinophils (%) (Auto) 2.3 % Basophils (%) (Auto) 0.4 % Neutrophils # (Auto) 4.53 K/uL Lymphocytes # (Auto) 1.65 K/uL Monocytes # (Auto) 0.65 K/uL Eosinophils # (Auto) 0.16 K/uL Basophils # (Auto) 0.03 K/uL RDW Standard Deviation 45.6 fL RDW Coefficient of Variation 15.0 % Immature Granulocyte % (Auto) 0.4 % Immature Granulocyte # (Auto) 0.03 K/uL Red Blood Cell Morphology Unremarkable Sodium Level 143 mmol/L Potassium Level 3.5 mmol/L Chloride Level 110 mmol/L Carbon Dioxide Level 23 mmol/L Anion Gap 10.0 mmol/L Blood Urea Nitrogen 50 mg/dl Creatinine 4.30 mg/dl Est Creatinine Clear Calc Drug Dose 16.4 ml/min Estimated GFR () 15.3 Estimated GFR (Non- 13.2 BUN/Creatinine Ratio 11.7 Random Glucose 141 mg/dl Calcium Level 8.7 mg/dl Total Bilirubin 0.4 mg/dl Aspartate Amino Transf (AST/SGOT) 19 U/L Alanine Aminotransferase (ALT/SGPT) 56 U/L Alkaline Phosphatase 140 U/L Total Protein 6.5 gm/dl Albumin 2.3 gm/dl Globulin 4.2 gm/dl Albumin/Globulin Ratio 0.5 Assessment and Plan pt voiding w/o difficulty Spoke with Dr. Ojeda will cancel TURP scheduled for this pending nephrology assessnent check urine c/s since shafer in prior to d/c pt to call for dysuria f/ with Dr. Llanes in several weeks arranged Continued [facility] stay due to: abnormal vital signs, multiple IV medications needed Discharge planning: home
--- NOTE | 2016-08-01 12:35 | Discharge Instructions ---
Discharge Instructions Date of Service Aug 01, 2016. Admission Reason for Admission: Acute Renal Failure Discharge Discharge Diagnosis / Problem: Prrogressing stage iV CKD Discharge Goals Goal(s): Improve disease control, Diagnostic testing, Therapeutic intervention Activity Recommendations Activity Limitations: resume your previous activity . Instructions / Follow-Up Instructions / Follow-Up You were admitted to hospital from your test architect's office due to abnormal kidney and liver test values indicating kidney decompensation. Additionally, your blood pressures were found to be significantly elevated. You hospital course involved understanding the cause of this change in renal function and determining further management as well as improving control of your blood pressure. Hyzaar was stopped immediately, as this can further damage an acutely injured kidney. This medication should not be resumed on discharge. Your metoprolol succinate and nifedipine doses were continued, and your isosorbide mononitrate was titrated from your home dose of 30mg to 90mg. You tolerated this well and and relative blood pressure control was attained. You will go home on the home doses of metoprolol succinate and nifedipine and the increased dose of the isosorbide mononitrate. 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 If it had been caused by your prostate, we would have seen improvement of the labs with Santoyo insertion, which was not seen. Renal US showed cysts on the kidneys but no kidney swelling. Urine collection was significant for large amounts of protein loss. Some immunology labs are pending at discharge, as is a urine culture.. Lipitor and Rebif were held through out admission to avoid kidney/liver exacerbation, and should only be resumed after speaking with your test architect and neurologist. Vascular surgery was consulted for fistula planning. Venous mapping showed patent vessels in your right arm, and you will follow up with them next week for further management. Your TURP will be rescheduled for after your surgery for your AV fistula. Please follow up with your urologist regarding scheduling of this surgery. Upon discharge all your other home medications not mentioned above may be resumed. Please go to a [facility] lab on Wednesday or Wednesday to have you kidney and liver function rechecked. Have the lab send the results to your test architect so that he may contact you if he would like to see you sooner than the appointment scheduled for 3 weeks from now. If you have any questions or concerns, or changes in symptoms, please seek medical advice sooner. Thank you for allowing us to participate in your care. Current Hospital Diet Patient's current hospital diet: Renal Diet, Diabetes Type 2 Diet Discharge Diet Recommended Diet: Low Sodium Diet (2gm Na), Diabetes Type 2 Diet, Renal Diet Pending Studies Studies pending at discharge: yes List of pending studies: serum free light chains, LETY, ANCA, complement levels urine culture Laboratory Results Results Past 24 Hours Test 07/31/16 15:57 07/31/16 16:13 07/31/16 20:16 08/01/16 05:40 Range/Units Bedside Glucose 176 203 70-99 mg/dl Sodium Level 145 143 136-145 mmol/L Potassium Level 3.5 3.5 3.5-5.1 mmol/L Chloride Level 112 110 98-107 mmol/L Carbon Dioxide Level 24 23 21-32 mmol/L Anion Gap 9.0 10.0 3-11 mmol/L Blood Urea Nitrogen 49 50 7-18 mg/dl Creatinine 4.40 4.30 0.60-1.40 mg/dl Est Creatinine Clear Calc Drug Dose 16.1 16.4 ml/min Estimated GFR () 14.9 15.3 Estimated GFR (Non- 12.8 13.2 BUN/Creatinine Ratio 11.2 11.7 10-20 Random Glucose 170 141 70-99 mg/dl Calcium Level 8.1 8.7 8.5-10.1 mg/dl Total Bilirubin 0.2 0.4 0.2-1 mg/dl Direct Bilirubin < 0.1 0-0.2 mg/dl Aspartate Amino Transf (AST/SGOT) 23 19 15-37 U/L Alanine Aminotransferase (ALT/SGPT) 56 56 12-78 U/L Alkaline Phosphatase 135 140 45-117 U/L Total Protein 5.7 6.5 6.4-8.2 gm/dl Albumin 2.0 2.3 3.4-5.0 gm/dl White Blood Count 7.05 4.8-10.8 K/uL Red Blood Count 3.05 4.7-6.1 M/uL Hemoglobin 8.9 14.0-18.0 g/dL Hematocrit 25.4 42-52 % Mean Corpuscular Volume 83.3 80-100 fL Mean Corpuscular Hemoglobin 29.2 25-34 pg Mean Corpuscular Hemoglobin Concent 35.0 32-36 g/dl Platelet Count 213 130-400 K/uL Mean Platelet Volume 10.3 7.4-10.4 fL Neutrophils (%) (Auto) 64.3 % Lymphocytes (%) (Auto) 23.4 % Monocytes (%) (Auto) 9.2 % Eosinophils (%) (Auto) 2.3 % Basophils (%) (Auto) 0.4 % Neutrophils # (Auto) 4.53 1.4-6.5 K/uL Lymphocytes # (Auto) 1.65 1.2-3.4 K/uL Monocytes # (Auto) 0.65 0.11-0.59 K/uL Eosinophils # (Auto) 0.16 0-0.5 K/uL Basophils # (Auto) 0.03 0-0.2 K/uL RDW Standard Deviation 45.6 36.4-46.3 fL RDW Coefficient of Variation 15.0 11.5-14.5 % Immature Granulocyte % (Auto) 0.4 % Immature Granulocyte # (Auto) 0.03 0.00-0.02 K/uL Red Blood Cell Morphology Unremarkable Globulin 4.2 2.5-4.0 gm/dl Albumin/Globulin Ratio 0.5 0.9-2 Test 08/01/16 06:54 08/01/16 11:30 Range/Units Bedside Glucose 140 173 70-99 mg/dl Microbiology Results 08/01/16 Urine Culture, Received Pending Medical Emergencies . Who to Call and When: Medical Emergencies: If at any time you feel your situation is an emergency, please call 911 immediately. . Non-Emergent Contact Non-Emergency issues call your: Primary Care Provider, Corral Boss, Neurologist, Urologist . . "Provider Documentation" section prepared by Jackie Nielsen. VTE Core Measure Inpt VTE Proph given/why not?: Unfractionated heparin SQ
--- NOTE | 2016-08-01 12:37 | Discharge Summary ---
Discharge Summary Date of Service Aug 01, 2016. (Alka. Nielsen MD) Discharge Summary Admission Date: Jul 29, 2016 at 18:41 Discharge Date: Aug 01, 2016 Discharge Disposition: Home Principal Diagnosis: Progressing CKD Immunizations: Have You Had Influenza Vaccine: Yes Influenza Vaccine Date: Feb 08, 2005 History of Tetanus Vaccine?: No History of Pneumococcal: Yes Pneumococcal Date: Jul 10, 2003 History of Hepatitis B Vaccine: Yes Hepatitis Immunization Date: Jul 09, 2004 (Alka. Nielsen MD) Medication Reconciliation New Medications: Isosorbide Mononitrate (Isosorbide Mononitrate ER) 30 Mg Tabcr 90 MG PO QAM for 30 Days, #90 TAB Continued Medications: Aspirin (Aspirin Ec) 81 Mg Tab 81 MG PO HS Dutasteride (Avodart) 0.5 Mg Cap 0.5 MG PO HS, CAP Ergocalciferol (Vitamin D 87057 Unit) 50,000 Unit Cap 08039 UNIT PO MONTH, CAP FIRST OF MONTH Insulin Glargine (Lantus Solostar) 100 Unit/Ml Inj 68 SC BID, PEN Interferon Beta-1A (Rebif) 44 Mcg/0.5 Ml Inj 0.5 ML INJ 3XWEEK Wednesday HS Meclizine Hcl (Meclizine Hcl) 25 Mg Tab 1 TAB PO PRN for 10 Days, TAB Metoprolol Succ (Toprol Xl) (Toprol-Xl ) 100 Mg Tabcr 200 MG PO QAM, TAB Multivitamin (Multivitamin) Tab 1 TAB PO QPM, TAB Nifedipine Ext Rel (Procardia Xl Ext Rel) 30 Mg Tabcr 90 MG PO QAM, TAB Silodosin (Rapaflo) 8 Mg Cap 1 CAP PO HS for 90 Days, CAP 3 Refills Discontinued Medications: Acetaminophen (Tylenol) 500 Mg Tab 1 TAB PO PRN for 3 Days, #10 TAB Atorvastatin (Lipitor) 20 Mg Tab 20 MG PO HS, TAB Hctz/Losartan (Hyzaar 25MG/100MG) Tab 1 TAB PO QAM, TAB Isosorbide Mononitrate Ext Rel (Imdur Ext Rel) 30 Mg Ertab 30 MG PO QAM, TAB Discharge Exam Review of Systems: Constitutional: No fatigue, No fever Eyes: No diplopia, No worsening of vision Respiratory: No cough, No shortness of breath Cardiovascular: + edema, No chest pain, No palpitations Abdomen: + diarrhea, No GI bleeding, No nausea, No pain, No vomiting Genitourinary - Male: + urinary hesitancy, No dysuria, No urinary retention Physical Exam: General Appearance: WD/WN, no apparent distress Eyes: normal inspection ENT: hearing grossly normal Neck: supple, no adenopathy, no JVD Respiratory/Chest: lungs clear, normal breath sounds, no respiratory distress, no accessory muscle use Cardiovascular: regular rate, rhythm, no murmur Abdomen / GI: normal bowel sounds, non tender, soft Extremities: no calf tenderness, + pedal edema (+1 pitting to mid joseph) Neurologic/Psychiatric: alert, normal mood/affect, oriented x 3 Skin: normal color, warm/dry, no rash (Alka. 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 Hospital course involved understanding cause of deterioration in renal function and determining further management as well as blood pressure control. Hypertensive urgency Hyzaar was stopped immediately in view of ORXANNA, and was not resumed on discharge. Home doses of metoprolol succinate and nifedipine doses were continued. Isosorbide mononitrate was titrated from home dose of 30mg to 60mg to 90mg. Hydralazine and metoprolol tartrate were added as PRN medications in the interim for systolic BP>180. Patient tolerated the increased isosorbide mononitrate dose without issue and relative blood pressure control was attained. Patient discharged on home doses of metoprolol succinate and nifedipine and the increased dose of the isosorbide mononitrate. 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 Renal US showed cysts on the kidneys but no kidney swelling. Urine collection was significant for large amounts of protein loss. Serum free light chains, LETY, ANCA, complement levels pending on discharge. Urology recommended Kuday Catheter to determine of it was related to BPH, but no improvement was seen on labs with Santoyo insertion. Santoyo removed and trial of void successful. Urine culture also pending on discharge. Lipitor and Rebif were held through out admission to avoid kidney/liver exacerbation, and patient advised to resume only after speaking with his service or work dispatcher chief and neurologist. Vascular surgery was consulted for fistula planning. Venous mapping showed patent vessels in right arm, and follow up arranged for next week for further management. As per urology, TURP to be rescheduled for after AV fistula creation. Follow up with nephrology arranged in 3 weeks. Upon discharge all other home medications not mentioned above to be resumed. Patient advised to go to a [facility] lab on Wednesday or Wednesday for CMP with results to be cc'ed to his service or work dispatcher chief so that earlier appointment can be made if necessary. Total Time Spent: Less than 30 minutes This includes examination of the patient, discharge planning, medication reconciliation, and communication with other providers. (Alka. Nielsen MD) Resident Physician Supervision Note: I was present with Dr. Nielsen during the history and exam. I discussed the case with the resident and agree with the findings and plan as documented in the note. Documented By: Charlie Robertson Total Time Spent: Less than 30 minutes (Charlie Robertson.,D.O.) Discharge Instructions Please refer to the electronic Patient Visit Report (Discharge Instructions) for additional information. (Alka. Nielsen MD) Resident Tracking Resident Involvement: Resident Care Provided Care Provided: Adult [facility] (Alka. Nielsen MD)
--- NOTE | 2016-08-01 13:03 | Nephrology Progress Note ---
Nephrology Progress Note Date of Service Aug 01, 2016. Chief Complaint Follow-up for acute kidney injury with history of chronic kidney disease. Subjective Mr. Bravo was seen and examined in his room this morning with his at bedside. He overall feels well, denies any specific symptom. he remain non- oliguric, volume status and electrolyte acceptable. Renal function remained stable throughout the hospital course, creatinine has been variable from 4.0- 4.4. Review of Systems A complete review of systems was performed. Pertinent positives are noted above. All other systems are negative. Vital Signs Last 8 Hrs Date Time Temp Pulse Resp B/P Pulse Ox O2 Delivery O2 Flow Rate FiO2 08/01/16 11:50 36.7 71 18 166/79 98 Room Air 08/01/16 08:01 36.8 72 18 169/81 97 I & O 24-Hour Column 08/01/16 08:00 Intake Total 1100 ml Output Total 1075 ml Balance 25 ml Last Recorded Weight Weight (Kilograms): 84.200 Physical Exam GENERAL: Middle-aged male, AAA x 3, pleasant, healthy-appearing, not in any distress. NECK: Supple, no JVD. RESPIRATORY: Normal breathing efforts, no accessory muscle use, clear to auscultation bilaterally, no wheezes or rales. CARDIOVASCULAR: S1, S2 normal, rate rhythm regular. EXTREMITY: No lower extremity edema NEURO: speech fluent. PSYCHIATRY: Normal mood and judgment Family History Negative for CKD / ESRD Social History Alcohol Use: none Drug Use: none Marital Status: Housing Status: lives with family Occupation: retired . Retired. Never a smoker Laboratory Results Past 24 Hours 08/01/16 05:40 Red Blood Count 3.05, Mean Corpuscular Volume 83.3, Mean Corpuscular Hemoglobin 29.2, Mean Corpuscular Hemoglobin Concent 35.0, Mean Platelet Volume 10.3, Neutrophils (%) (Auto) 64.3, Lymphocytes (%) (Auto) 23.4, Monocytes (%) (Auto) 9.2, Eosinophils (%) (Auto) 2.3, Basophils (%) (Auto) 0.4, Neutrophils # (Auto) 4.53, Lymphocytes # (Auto) 1.65, Monocytes # (Auto) 0.65, Eosinophils # (Auto) 0.16, Basophils # (Auto) 0.03 07/31/16 16:13 08/01/16 05:40 Test 07/31/16 14:00 07/31/16 15:57 07/31/16 16:13 07/31/16 20:16 Urine Color YELLOW Urine Appearance CLEAR (CLEAR) Urine pH 6.5 (4.5-7.5) Urine Specific [place] 1.020 (1.000-1.030) Urine Protein 4+ (NEG) Urine Glucose (UA) 2+ (NEG) Urine Ketones NEG (NEG) Urine Occult Blood 1+ (NEG) Urine Nitrite NEG (NEG) Urine Bilirubin NEG (NEG) Urine Urobilinogen NEG (NEG) Urine Leukocyte Esterase NEG (NEG) Urine WBC (Auto) 5-10 /hpf (0-5) Urine RBC (Auto) 5-10 /hpf (0-4) Urine Hyaline Casts (Auto) 5-10 /lpf (0-5) Urine Epithelial Cells (Auto) >30 /lpf (0-5) Urine Bacteria (Auto) NEG (NEG) Urine Renal Epithelial Cells 0-5 /lpf (0-5) Urine Pathogenic Casts 0-3 GRANULAR CASTS /lpf (0) Bedside Glucose 176 mg/dl (70-99) 203 mg/dl (70-99) Anion Gap 9.0 mmol/L (3-11) Est Creatinine Clear Calc Drug Dose 16.1 ml/min Estimated GFR () 14.9 Estimated GFR (Non- 12.8 BUN/Creatinine Ratio 11.2 (10-20) Calcium Level 8.1 mg/dl (8.5-10.1) Total Bilirubin 0.2 mg/dl (0.2-1) Direct Bilirubin < 0.1 mg/dl (0-0.2) Aspartate Amino Transf (AST/SGOT) 23 U/L (15-37) Alanine Aminotransferase (ALT/SGPT) 56 U/L (12-78) Alkaline Phosphatase 135 U/L (45-117) Total Protein 5.7 gm/dl (6.4-8.2) Albumin 2.0 gm/dl (3.4-5.0) Test 08/01/16 05:40 08/01/16 06:54 08/01/16 11:30 White Blood Count 7.05 K/uL (4.8-10.8) Red Blood Count 3.05 M/uL (4.7-6.1) Hemoglobin 8.9 g/dL (14.0-18.0) Hematocrit 25.4 % (42-52) Mean Corpuscular Volume 83.3 fL (80-100) Mean Corpuscular Hemoglobin 29.2 pg (25-34) Mean Corpuscular Hemoglobin Concent 35.0 g/dl (32-36) Platelet Count 213 K/uL (130-400) Mean Platelet Volume 10.3 fL (7.4-10.4) Neutrophils (%) (Auto) 64.3 % Lymphocytes (%) (Auto) 23.4 % Monocytes (%) (Auto) 9.2 % Eosinophils (%) (Auto) 2.3 % Basophils (%) (Auto) 0.4 % Neutrophils # (Auto) 4.53 K/uL (1.4-6.5) Lymphocytes # (Auto) 1.65 K/uL (1.2-3.4) Monocytes # (Auto) 0.65 K/uL (0.11-0.59) Eosinophils # (Auto) 0.16 K/uL (0-0.5) Basophils # (Auto) 0.03 K/uL (0-0.2) RDW Standard Deviation 45.6 fL (36.4-46.3) RDW Coefficient of Variation 15.0 % (11.5-14.5) Immature Granulocyte % (Auto) 0.4 % Immature Granulocyte # (Auto) 0.03 K/uL (0.00-0.02) Red Blood Cell Morphology Unremarkable Anion Gap 10.0 mmol/L (3-11) Est Creatinine Clear Calc Drug Dose 16.4 ml/min Estimated GFR () 15.3 Estimated GFR (Non- 13.2 BUN/Creatinine Ratio 11.7 (10-20) Calcium Level 8.7 mg/dl (8.5-10.1) Total Bilirubin 0.4 mg/dl (0.2-1) Aspartate Amino Transf (AST/SGOT) 19 U/L (15-37) Alanine Aminotransferase (ALT/SGPT) 56 U/L (12-78) Alkaline Phosphatase 140 U/L (45-117) Total Protein 6.5 gm/dl (6.4-8.2) Albumin 2.3 gm/dl (3.4-5.0) Globulin 4.2 gm/dl (2.5-4.0) Albumin/Globulin Ratio 0.5 (0.9-2) Bedside Glucose 140 mg/dl (70-99) 173 mg/dl (70-99) Allergies Coded Allergies: No Known Allergies (Verified , 07/20/16) Medications Current Inpatient Medications Medications (Trade) Dose Ordered Sig/Brendan Route Start Time Stop Time Status Last Admin Dose Admin Acetaminophen (Tylenol Tab) 650 mg Q4H PRN PO 07/29/16 19:30 08/28/16 19:29 07/30/16 18:30 650 MG Al Hydrox/Mg Hydrox/Simethicone (Maalox Max Susp) 15 ml Q4H PRN PO 07/29/16 19:30 08/28/16 19:29 Magnesium Hydroxide (Milk Of Magnesia Susp) 30 ml Q6H PRN PO 07/29/16 19:30 08/28/16 19:29 Polyethylene (Miralax Powder Packet) 17 gm DAILY PRN PO 07/29/16 20:00 08/28/16 19:59 Ondansetron HCl (Zofran Inj) 4 mg Q6H PRN IV 07/29/16 19:30 08/28/16 19:29 Heparin Sodium (Porcine) (Heparin Sq 5000 Unit/0.5ml) 5,000 unit Q12 SQ 07/29/16 21:30 08/28/16 21:29 08/01/16 08:30 5,000 UNIT Aspirin (Ecotrin Tab) 81 mg HS PO 07/29/16 22:00 08/28/16 21:59 07/31/16 21:55 81 MG Atorvastatin Calcium (Lipitor Tab) 20 mg HS PO 07/29/16 22:00 08/28/16 21:59 Future Hold Metoprolol Succinate (Toprol Xl Tab) 200 mg QAM PO 07/30/16 08:00 08/29/16 07:59 08/01/16 08:00 200 MG Multivitamins (Multivitamin Tab) 1 tab QPM PO 07/29/16 21:00 08/28/16 20:59 07/31/16 21:56 1 TAB Nifedipine (Procardia Xl Tab) 90 mg QAM PO 07/30/16 08:00 08/29/16 07:59 08/01/16 07:59 90 MG Miscellaneous Information (Order Awaiting Action) 1 ea QS N/A 07/29/16 20:00 08/28/16 19:59 07/30/16 20:24 1 EA Miscellaneous Information (Order Awaiting Action) 1 ea QS N/A 07/29/16 20:00 08/28/16 19:59 07/30/16 20:24 1 EA Insulin Aspart (novoLOG ASPART) SLIDING SCALE G... ACHS SC 07/29/16 22:00 08/28/16 21:59 07/31/16 22:18 2 UNITS Glucose (Glucose 40% Gel) 15-30 GRAMS 15 GRAMS... UD PRN PO 07/29/16 19:45 08/28/16 19:44 Glucose (Glucose Chew Tab) 4-8 Tablets 4 Tabl... UD PRN PO 07/29/16 19:45 08/28/16 19:44 Dextrose (Dextrose 50% 50ML Syringe) 25-50ML OF 50% DW IV FOR... UD PRN IV 07/29/16 19:45 08/28/16 19:44 Glucagon (Glucagon Inj) 1 mg UD PRN SQ 07/29/16 19:45 08/28/16 19:44 Hydralazine HCl (HydrALAZINE INJ) 10 mg Q4 PRN IV. 07/29/16 21:15 08/28/16 21:14 07/30/16 20:42 10 MG Meclizine HCl (Antivert Tab) 25 mg Q6H PRN PO 07/29/16 21:30 08/28/16 21:29 Insulin Glargine (Lantus Solostar Pen) 65 unit QAM SC 07/30/16 08:00 08/29/16 07:59 07/31/16 08:30 65 UNIT Silodosin (Rapaflo) 8 mg HS PO 07/30/16 21:00 08/29/16 20:59 07/31/16 21:54 8 MG Metoprolol Tartrate (Lopressor Iv) 5 mg Q6 PRN IV 07/30/16 19:45 08/29/16 19:44 Isosorbide Mononitrate (Imdur Ext Rel Tab) 90 mg QAM PO 07/31/16 11:00 08/30/16 10:59 08/01/16 07:58 90 MG Dutasteride (Avodart Cap) 0.5 mg QPM PO 08/01/16 21:00 08/30/16 08:59 Impression (1) Renal failure (ARF), acute on chronic (2) Hypertension (3) Diabetes (4) Multiple sclerosis (5) BPH (benign prostatic hyperplasia) (6) Abnormal LFTs (liver function tests) (7) Proteinuria Patient with acute on chronic kidney injury and elevated LFT's. No improvement despite discontinuation of ARB and statin therapy. Santoyo catheter placed and renal US ordered to evaluate for post obstructive cause of renal failure. Clcr is down to 15 cc/min. Patient has nephrotic range proteinuria. 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 Multiple cysts within both kidneys has precluded kidney biopsy. Recommendations -- Patient appears to have progressive CKD and is nearing ESRD -- Continue to hold ARB on discharge, will consider restarting in future as an outpatient depending on the status of his renal function -- okay to continue on interferon as there is no definitive recommendation for dosing in renal impairment -- continue to hold statin on discharge and it can be restarted in future as an outpatient -- will have AVF created within the next 1 - 2 weeks as outpatient -- as blood pressure remained elevated consider starting on hydralazine 25 milligram 3 times a day on discharge -- patient has nephrology follow up appointment in 2 - 3 weeks. --please schedule for follow-up renal panel in few days after discharge and patient also need a repeat lab 2-3 days before his scheduled outpatient visit. -- Will set up outpatient dialysis education classes at the [facility] -- okay to be discharged from nephrology standpoint.
[2016-08-01] MEDS ORDERED: IMDSR30 PO (14:50)
[2016-08-01] MEDS ORDERED: DUTASTERIDE 0.5 MG CAP PO SCH (21:00)
[2016-08-03 16:32] LABS: FREE KAPPA 107.2 MG/L (3.3-19.4); FREE KAPPA/LAMBDA RATIO 1.66 (0.26-1.65); FREE LAMBDA 64.5 MG/L (5.7-26.3)
[2016-08-03 22:29] LABS: MYELOPEROXIDASE AB <1.0 AI (<1.0)
[2016-08-18] MEDS ORDERED: OXYC-57 PO (12:10)
[2016-10-27] MEDS ORDERED: OXYC-57 PO (10:10)
[2016-10-28] MEDS ORDERED: ASPI81TA28 PO (13:10)
[2016-10-28] MEDS ORDERED: MULT-506 PO (13:10)
[2016-10-28] MEDS ORDERED: MECL1TAB42 PO (13:10)
[2016-10-28] MEDS ORDERED: DUTA0.5C PO (13:10)
[2016-10-28] MEDS ORDERED: ERGO500037 PO (13:12)
[2016-10-28] MEDS ORDERED: SILO8CAP PO (13:12)
[2016-10-28] MEDS ORDERED: METO-648 PO (20:23)
[2017-01-18] MEDS ORDERED: CALC667C4 PO (07:57)
[2017-01-18] MEDS ORDERED: INSDGI SC (07:57)
== END 2016-08-01 15:53 | disposition home or self-care (01) | DRG 684 ==
LOC: ENRESERVTM → ENRESERVDT → C.MS4W 18:41 → C.2T 07-30 05:17
PROVIDERS: ADMIT Family Medicine; ATTEND Family Medicine
DX: N17.9 Acute kidney failure, unspecified (principal); I16.0 Hypertensive urgency; N18.4 Chronic kidney disease, stage 4 (severe); E11.21 Type 2 diabetes mellitus with diabetic nephropathy; I12.9 Hypertensive chronic kidney disease with stage 1 through stage 4 chronic kidney disease, or unspecified chronic kidney disease; R29.898 Other symptoms and signs involving the musculoskeletal system; G35 Multiple sclerosis; N40.0 Benign prostatic hyperplasia without lower urinary tract symptoms; Z93.3 Colostomy status; R94.5 Abnormal results of liver function studies; I25.10 Atherosclerotic heart disease of native coronary artery without angina pectoris; E78.00 Pure hypercholesterolemia, unspecified; Z82.49 Family history of ischemic heart disease and other diseases of the circulatory system; Z79.82 Long term (current) use of aspirin; Z79.4 Long term (current) use of insulin; R80.9 Proteinuria, unspecified; E55.9 Vitamin D deficiency, unspecified; N28.1 Cyst of kidney, acquired

== ENCOUNTER → 2016-08-03 | Outpatient (CLI) | payer OTHER ==
[~2016-08-03] MED LIST changes: -ACET-1256 PO; +ASPI81TA28 PO; -ATOR-22 PO; +CALC667C4 PO; +DUTA0.5C PO; +DXM4 PO; +ERGO500037 PO; +HYDR-5688 PO; -HYZ/10015 PO; +IMDSR30 PO; +INSDGIPEN SC; +MECL1TAB42 PO; +METO-648 PO; +MULT-506 PO; +NIFE90TA27 PO; +NVLGIPEN SC; +OXYC-57 PO; +SILO8CAP PO
[2016-08-03 10:46] LABS: MEAN CORPUSCULAR HEMOGLOBIN 29.3 pg (25-34); MEAN CORPUSCULAR HGB CONC 34.4 g/dl (32-36); MEAN PLATELET VOLUME 10.6 fL (7.4-10.4); PLATELET COUNT 258 K/uL (130-400); RED BLOOD COUNT 2.94 M/uL (4.7-6.1)
[2016-08-03 11:13] LABS: URINE APPEARANCE CLEAR (CLEAR); URINE BILIRUBIN NEG (NEG); URINE COLOR YELLOW; URINE NITRITE NEG (NEG); URINE PH 5.5 (4.5-7.5); URINE SPECIFIC GRAVITY 1.019 (1.000-1.030); UROBILINOGEN NEG (NEG)
[2016-08-03 11:16] LABS: ALB/GLOB RATIO 0.5 (0.9-2); ALKALINE PHOSPHATASE 127 U/L (45-117); ALT/SGPT 46 U/L (12-78); AST/SGOT 19 U/L (15-37); BLOOD UREA NITROGEN 56 mg/dl (7-18); BUN/CREATININE RATIO 11.6 (10-20); CALCIUM 8.8 mg/dl (8.5-10.1); CARBON DIOXIDE 22 mmol/L (21-32); CHLORIDE 113 mmol/L (98-107); GLUCOSE 136 mg/dl (70-99); POTASSIUM 3.7 mmol/L (3.5-5.1); SODIUM 146 mmol/L (136-145)
[2016-08-03 11:26] LABS: URINE TOTAL PROTEIN 703.5 mg/dl (0-11.9)
[2016-08-03 11:33] LABS: MANUAL MICROSCOPIC REQUIRED? NO; REVIEW REQ? YES
[2016-08-03 11:57] LABS: URINE EPITHELIAL CELL AUTO 0-5 /lpf (0-5); URINE PATH CASTS 0-3 GRANULAR CASTS /lpf (0)
== END | disposition home or self-care (01) ==
LOC: C.LAB1850 09:14
PROVIDERS: ATTEND Internal Medicine Nephrology
DX: N18.3 Chronic kidney disease, stage 3 (moderate) (principal)

== ENCOUNTER 2016-08-07 08:25 | Day surgery (SDC) | payer OTHER ==
[~2016-08-07] VITALS: Ht 175.3 cm; Wt 84.4 kg
[~2016-08-07 08:25] MED LIST changes: -ASPI81TA28 PO; -CALC667C4 PO; +D5W AND 1/4NSS 1000 ML IV SCH; -DUTA0.5C PO; -DXM4 PO; -ERGO500037 PO; -HYDR-5688 PO; -INSDGI SC; -INSDGIPEN SC; -ISOS30TA3 PO; -MECL1TAB42 PO; -METO-648 PO; -MULT-506 PO; -NIFE90TA27 PO; -NVLGIPEN SC; -OXYC-57 PO; -SILO8CAP PO
[2016-08-07 08:55] VITALS: PULSE 79; TEMP 36.7; O2SAT 97; Ht 175.3 cm; Wt 84.4 kg
--- NOTE | 2016-08-07 10:30 | History and Physical ---
History & Physical Date of Service Aug 07, 2016. History & Physical Chief Complaint ESRD, need dialysis History of Present Illness The patient is a 66 year old male with HTN, admitted with acute on chronic renal failure, seen in consultation today for AVF creation. Pt not yet on HD, but needs to be started this week. Patient here for permcath insertion. Pt states feeling fine. Denies LEWIS, fever, chills, chest pain, SOB, abd pain, N/v, rest pain, claudication, other complaints. Allergies Coded Allergies: No Known Allergies (Verified , 07/20/16) Home Medications Scheduled Acetaminophen (Tylenol), 1 TAB PO PRN Aspirin (Aspirin Ec), 81 MG PO HS Atorvastatin (Lipitor), 20 MG PO HS Dutasteride (Avodart), 0.5 MG PO HS Ergocalciferol (Vitamin D 57238 Unit), 50,000 UNIT PO MONTH Hctz/Losartan (Hyzaar 25MG/100MG), 1 TAB PO QAM Insulin Glargine (Lantus Solostar), 68 SC BID Interferon Beta-1A (Rebif), 0.5 ML INJ 3XWEEK Isosorbide Mononitrate Ext Rel (Imdur Ext Rel), 30 MG PO QAM Meclizine Hcl (Meclizine Hcl), 1 TAB PO PRN Metoprolol Succ (Toprol Xl) (Toprol-Xl ), 200 MG PO QAM Multivitamin (Multivitamin), 1 TAB PO QPM Nifedipine Ext Rel (Procardia Xl Ext Rel), 90 MG PO QAM Silodosin (Rapaflo), 1 CAP PO HS Problem List Medical Problems: (1) Abnormal LFTs (liver function tests) (2) BPH (benign prostatic hyperplasia) (3) Diabetes (4) Hypertension (5) Multiple sclerosis (6) Proteinuria (7) Renal failure (ARF), acute on chronic Surgical / Medical History Hx Cardiac Surgery: No Hx Abdominal Surgery: Yes (colostomy, colostomy repair, hernia, appendectomy) Hx Cancer Surgery: No Hx Thoracic Surgery: No Hx Orthopedic: No Hx Urinary Tract Surgery: No HX Other Surgery: No Past Medical/Surgical History: Hypertension Family History + HTN Social History Smoking Status: Never Smoker Hx Tobacco Use In Past Year?: No Hx Alcohol Use - Type & Amnt: Yes (rare-single beer) Hx Substance Use -Type & Amnt: No Review of Systems Constitutional: No chills, No fever, No malaise Skin: No change in color Eyes: No visual changes ENMT: No sore throat Respiratory: No PHELPS, No cough, No hemoptysis, No short of breath Cardiovascular: No chest pain, No chest pressure, No edema, No intermittent claudication, No syncope Gastrointestinal: No abdominal pain, No nausea Neurologic: No dizziness, No headache, No lethargy, No numbness, No tingling Physical Exam Constitutional: General Apperance: heathly-appearing, well-nourished, well-developed Level of Distress: NAD Psychiatric: Mental Status: active & alert, normal mood, normal affect Orientation: oriented except where noted, to time, to place, to person Memory: recent memory normal, remote memory normal Head: normocephalic, atraumatic Eyes: EOM: EOMI ENMT: normal ENT inspection, hearing grossly normal Neck: supple, trachea midline Lungs: Respiratory effort: no dyspnea Auscultation: no wheezing, no rales/crackles, no rhonchi, decreased breath sounds Cardiovascular: Apical Impulse: not displaced Heart Auscultation: RRR, no rubs, no gallops Peripheral Pulses: Pulses: full and equal, in all extremities except if noted Bruits: none appreciated Carotid Pulse: normal on the left, normal on the right Brachial Pulses: normal on the left, normal on the right Radial Pulse: normal on the left, normal on the right Femoral Pulse: normal on the left, normal on the right Posterior Tibialis Pulse: decreased on the left, decreased on the right Dorsalis Pedis Pulse: decreased on the left, decreased on the right Abdomen: Bowel Sounds: normal Inspection & Palpation: soft, non-distended, no tenderness, guarding & rebound Musculoskeletal: normal strength (5/5 throughout), normal tone Extremities: Upper Right: no cyanosis, no edema, no varicosities Upper Left: no cyanosis, no edema, no varicosities Lower Right: no cyanosis, no edema, no varicosities Lower Left: no cyanosis, no edema, no varicosities Neurologic: Cranial Nerves: grossly intact Sensation: grossly intact A&P: Vascular Con v2 Assessment and Plan ASSESSMENT and PLAN: ESRD Plan: Patient admitted for insertion of permcath. I have discussed the risks options and benefits of the procedure with the patient. The patient understands the risks options and benefits and agrees to the procedure.
--- NOTE | 2016-08-07 10:31 | Procedure Note ---
Pre-Mod Sedation Assessment General Date of Moderate Sedation: Aug 07, 2016. Vital Signs: Vital Signs Past 12 Hours Date Time Temp Pulse Resp B/P Pulse Ox O2 Delivery O2 Flow Rate FiO2 08/07/16 08:55 36.7 79 20 97 Room Air Pre-Sedation Airway Assessment Oral Cavity: Dental Abnormalities Short Thick Neck: No Hx of Sleep Apnea: No Smoking Status: Never Smoker Mallampati Classification: Class I ASA Classification: Class II Notes The planned sedation has been discussed with the patient and consent obtained. I have identified the patient, determined the appropriateness of sedation and have assessed the patient immediately prior to the procedure. All medicine(s) and interventions are by my order.
[2016-08-07 10:44] VITALS: BP 194/97; PULSE 79; TEMP 36.7; O2SAT 97
[2016-08-07] MEDS ORDERED: HEPARIN SOD (PORCINE) 5000 UNIT/ML 1 ML VIAL ONE (10:48)
[2016-08-07] MEDS ORDERED: FENTANYL CITRATE INJ 50 MCG/1 ML 2 ML VIAL ONE (10:48)
[2016-08-07] MEDS ORDERED: MIDAZOLAM HCL 1 MG/ML 2ML VIAL ONE (10:48)
[2016-08-07] MEDS: CEFAZOLIN 2000 MG/60 ML D5W 60 ML IV SCH (10:53)
[2016-08-07] MEDS ORDERED: FENTANYL CITRATE INJ 50 MCG/1 ML 2 ML VIAL IV ONE (11:16)
[2016-08-07] MEDS ORDERED: MIDAZOLAM HCL 1 MG/ML 2ML VIAL IV ONE (11:16)
[2016-08-07] MEDS ORDERED: LIDOCAINE HCL 1% 20 ML VIAL SQ ONE (11:25)
[2016-08-07] MEDS ORDERED: HEPARIN SOD (PORCINE) 5000 UNIT/ML 1 ML VIAL IV ONE (11:36)
--- NOTE | 2016-08-07 11:50 | Procedure Note ---
Post-Moderate Sedation Plan General Date of Moderate Sedation Aug 07, 2016. Vital Signs: Vital Signs Past 12 Hours Date Time Temp Pulse Resp B/P Pulse Ox O2 Delivery O2 Flow Rate FiO2 08/07/16 10:44 36.7 79 20 194/97 97 Room Air 08/07/16 08:55 36.7 79 20 97 Room Air Review - Discharge Plan Post Moderate Sedation Plan: On clinical assessment, the patient appears to have tolerated the conscious sedation without complications. Patient is recovering as anticipated. Patient will continue to be monitored by nursing and may be discharged when conscious sedation discharge criteria are met.
--- NOTE | 2016-08-07 11:50 | [facility] Post Operative Brief Note ---
Immediate Operative Summary Operative Date Aug 07, 2016. Pre-Operative Diagnosis End Stage Renal Disease Post-Operative Diagnosis Same Procedure(s) Performed Insertion of Perm Catheter, Right Internal Jugular Approach, Ultrasound Localization of Right Internal Jugular Vein, Fluoroscopy for Positioning. Moderate Sedation (1116 - 1144 ) Surgeon Dr. Velazquez Dial Marker Surgeon(s) None Estimated Blood Loss 5 Findings tip in distal SVC Specimens None Anesthesia Local with moderate conscious sedation Complication(s) None Disposition
--- NOTE | 2016-08-07 11:52 | Discharge Instructions ---
Discharge Instructions Date of Service Aug 07, 2016. Visit Reason for Visit: End Stage Renal Disease Discharge Discharge Diagnosis / Problem: End stage renal disase Discharge Goals Goal(s): Therapeutic intervention Activity Recommendations Activity Limitations: per Instructions/Follow-up section Anesthesia . Post Anesthesia Instructions: If you have had General Anesthesia or IV Sedation: * Do not drive today. * Resume driving when surgeon permits. * Do not make important decisions or sign legal documents today. * Call surgeon for: 1. Temperature elevations greater than 101 degrees F. 2. Uncontrollable pain. 3. Excessive bleeding. 4. Persistent nausea and vomiting. 5. Medication intolerance (nausea, vomiting or rash). * For nausea and vomiting use only clear liquids such as: tea, soda, bouillon until nausea subsides, then gradually increase diet as tolerated. * If you have any concerns or questions, call your surgeon's office. If physician is unavailable and it is an emergency, call 911 or go to the nearest emergency room. . Instructions / Follow-Up Instructions / Follow-Up Call [phone] with any questions or concerns. Take this with you to dialysis May use permcath for dialysis SPECIAL CARE INSTRUCTIONS: Medications: * Continue to take your medications as directed. If you have been given a prescription for Plavix, please fill it immediately and take as directed. Incision Care: * Your puncture site may have some bruising and minor swelling for about one week. * You will have a small dressing covering your puncture site. You may remove the dressing after 24 hours and shower. You may let the warm soapy water run over it, but be sure to dry the puncture site well and keep it dry. * DO NOT IMMERSE THE INCISION IN A TUB/POOL/etc. UNTIL HEALED. * Puncture sites should be kept covered with a band-aid until it begins to heal. Restrictions: * Depending on whether you leg or arm was punctured to access the arteries, you will be required to lay flat, hold your arm still, or both, for about 4 hours after the procedure to prevent bleeding. * Limit your activity for the first 48 hours. You may walk and go up and down steps. Avoid excessive bending or movement at the puncture site. Possible Complications: * Excessive Swelling - after blood flow is improved you may notice increased swelling in the lower legs. This is a normal response. This usually depends on the amount of blockages in the leg, how long they have been there prior to your procedure and how much blood flow was restored. Elevating your legs will help to improve this. Please notify our office ([phone] ) if the swelling does not go away after lying in bed overnight. * Infection/Drainage/Bleeding - Drainage or bleeding from the puncture site should be minimal. If you have excessive bleeding or drainage, call our office ([phone]) right away. * Pain - You may experience some mild pain or soreness at your puncture site. If your pain does not improve, please contact our office ([phone]). Call your doctor and seek emergent treatment if you develop: * Temperature above 101 degrees * Any fever or chills * Any redness or purulent drainage from the puncture site * Any new dusky/blue colored toes or feet with coolness or sharp or aching pain. SKIN IRRITATION: * You may experience some redness and/or swelling in the area where radiation was administered. If any skin irritation occurs, please contact your family physician. FOLLOW UP VISIT: Keep any scheduled doctor appointments. Diet Recommendations Recommended Home Diet: resume previous diet Procedures Procedures Performed: Insertion of Perm Catheter, Right Internal Jugular Approach, Ultrasound Localization of Right Internal Jugular Vein, Fluoroscopy for Positioning. Moderate Sedation (1116 - 1144 ) Pending Studies Studies pending at discharge: no Medical Emergencies . Who to Call and When: Medical Emergencies: If at any time you feel your situation is an emergency, please call 911 immediately. . Non-Emergent Contact Non-Emergency issues call your: Surgeon . . "Provider Documentation" section prepared by Deng Velazquez.
[2016-08-07 11:55] VITALS: BP 187/91; PULSE 73; TEMP 36.6; O2SAT 95
--- NOTE | 2016-08-07 12:27 | DIAGNOSTIC IMAGING REPORT ---
DATE OF PROCEDURE: 08/07/2016 PREOPERATIVE DIAGNOSIS: End-stage renal disease. POSTOPERATIVE DIAGNOSIS: Same. PROCEDURE: Placement of right internal jugular tunneled hemodialysis line. SURGEON: Dr. Deng Velazquez. CREPING MACHINE OPERATOR HELPER: Dr. Liat Arroyo. ANESTHESIA: Local plus conscious sedation for 18 minutes. ESTIMATED BLOOD LOSS: 5 mL. COMPLICATIONS: None apparent. CONDITION: Stable to PACU. MILLIGRAYS: 1. FLUOROSCOPY TIME: 0.2 minutes. INDICATIONS: Mr. Bravo is a 66-year-old male who has end-stage renal disease in need of hemodialysis. He was advised of the risks and benefits of placing a tunneled hemodialysis catheter and agreed to undergo procedure. DESCRIPTION OF PROCEDURE: The patient was brought into the operative suite. He was prepped and draped in the usual fashion and a timeout occurred. His right internal jugular was identified under ultrasound. This was widely patent. This was accessed with a needle. A wire was passed into the inferior vena cava. The area of chest was anesthetized and the tunneled line was tunneled subcutaneously to the puncture site. The internal jugular was serially dilated and the PermCath was placed through a breakaway catheter. Position was confirmed under fluoroscopy. Both ports flushed and laurie back well. Heparin was instilled. The catheter was sewn in place. The patient tolerated the procedure well. Dr. Deng Velazquez was present for the entirety of this case.
[2016-08-07 12:30] VITALS: BP 178/88; PULSE 72; TEMP 36.6; O2SAT 98
[2016-08-07 12:55] VITALS: BP 182/89; PULSE 74; TEMP 36.7; O2SAT 97
[2016-10-28] MEDS ORDERED: ASPI81TA28 PO (13:10)
[2016-10-28] MEDS ORDERED: DUTA0.5C PO (13:10)
[2016-10-28] MEDS ORDERED: MECL1TAB42 PO (13:10)
[2016-10-28] MEDS ORDERED: MULT-506 PO (13:10)
[2016-10-28] MEDS ORDERED: ERGO500037 PO (13:12)
[2016-10-28] MEDS ORDERED: SILO8CAP PO (13:12)
[2016-10-28] MEDS ORDERED: METO-648 PO (20:23)
[2017-01-18] MEDS ORDERED: INSDGI SC (07:57)
[2017-01-18] MEDS ORDERED: CALC667C4 PO (07:57)
== END 2016-08-07 12:55 | disposition home or self-care (01) ==
LOC: C.ACU 08:25
PROVIDERS: ATTEND Surgery Vascular Surgery
DX: N18.6 End stage renal disease (principal); I12.0 Hypertensive chronic kidney disease with stage 5 chronic kidney disease or end stage renal disease; Z79.82 Long term (current) use of aspirin; Z79.899 Other long term (current) drug therapy; Z79.4 Long term (current) use of insulin; N40.0 Benign prostatic hyperplasia without lower urinary tract symptoms; E11.22 Type 2 diabetes mellitus with diabetic chronic kidney disease; G35 Multiple sclerosis

== ENCOUNTER 2016-08-18 09:31 | Day surgery (SDC) | payer OTHER ==
[2016-08-06 13:11] VITALS: BMI 28.0
[~2016-08-18] VITALS: Ht 175.3 cm; Wt 85.9 kg
--- NOTE | 2016-08-18 05:55 | History and Physical ---
History & Physical Date of Service Aug 18, 2016. History & Physical Chief Complaint ESRD History of Present Illness The patient is a 66 year old male with HTN, admitted with acute on chronic renal failure, and had a permcath inserted for dialysis. He is now admitted for a permament fistula creation. Pt states feeling fine. Denies LEWIS, fever, chills, chest pain, SOB, abd pain, N/v, rest pain, claudication, other complaints. Allergies Coded Allergies: No Known Allergies (Verified , 07/20/16) Home Medications Scheduled Acetaminophen (Tylenol), 1 TAB PO PRN Aspirin (Aspirin Ec), 81 MG PO HS Atorvastatin (Lipitor), 20 MG PO HS Dutasteride (Avodart), 0.5 MG PO HS Ergocalciferol (Vitamin D 82630 Unit), 50,000 UNIT PO MONTH Hctz/Losartan (Hyzaar 25MG/100MG), 1 TAB PO QAM Insulin Glargine (Lantus Solostar), 68 SC BID Interferon Beta-1A (Rebif), 0.5 ML INJ 3XWEEK Isosorbide Mononitrate Ext Rel (Imdur Ext Rel), 30 MG PO QAM Meclizine Hcl (Meclizine Hcl), 1 TAB PO PRN Metoprolol Succ (Toprol Xl) (Toprol-Xl ), 200 MG PO QAM Multivitamin (Multivitamin), 1 TAB PO QPM Nifedipine Ext Rel (Procardia Xl Ext Rel), 90 MG PO QAM Silodosin (Rapaflo), 1 CAP PO HS Problem List Medical Problems: (1) Abnormal LFTs (liver function tests) (2) BPH (benign prostatic hyperplasia) (3) Diabetes (4) Hypertension (5) Multiple sclerosis (6) Proteinuria (7) Renal failure (ARF), acute on chronic Surgical / Medical History Hx Cardiac Surgery: No Hx Abdominal Surgery: Yes (colostomy, colostomy repair, hernia, appendectomy) Hx Cancer Surgery: No Hx Thoracic Surgery: No Hx Orthopedic: No Hx Urinary Tract Surgery: No HX Other Surgery: No Past Medical/Surgical History: Hypertension Family History + HTN Social History Smoking Status: Never Smoker Hx Tobacco Use In Past Year?: No Hx Alcohol Use - Type & Amnt: Yes (rare-single beer) Hx Substance Use -Type & Amnt: No Review of Systems Constitutional: No chills, No fever, No malaise Skin: No change in color Eyes: No visual changes ENMT: No sore throat Respiratory: No PHELPS, No cough, No hemoptysis, No short of breath Cardiovascular: No chest pain, No chest pressure, No edema, No intermittent claudication, No syncope Gastrointestinal: No abdominal pain, No nausea Neurologic: No dizziness, No headache, No lethargy, No numbness, No tingling Physical Exam Constitutional: General Apperance: heathly-appearing, well-nourished, well-developed Level of Distress: NAD Psychiatric: Mental Status: active & alert, normal mood, normal affect Orientation: oriented except where noted, to time, to place, to person Memory: recent memory normal, remote memory normal Head: normocephalic, atraumatic Eyes: EOM: EOMI ENMT: normal ENT inspection, hearing grossly normal Neck: supple, trachea midline Lungs: Respiratory effort: no dyspnea Auscultation: no wheezing, no rales/crackles, no rhonchi, decreased breath sounds Cardiovascular: Apical Impulse: not displaced Heart Auscultation: RRR, no rubs, no gallops Peripheral Pulses: Pulses: full and equal, in all extremities except if noted Bruits: none appreciated Carotid Pulse: normal on the left, normal on the right Brachial Pulses: normal on the left, normal on the right Radial Pulse: normal on the left, normal on the right Femoral Pulse: normal on the left, normal on the right Posterior Tibialis Pulse: decreased on the left, decreased on the right Dorsalis Pedis Pulse: decreased on the left, decreased on the right Abdomen: Bowel Sounds: normal Inspection & Palpation: soft, non-distended, no tenderness, guarding & rebound Musculoskeletal: normal strength (5/5 throughout), normal tone Extremities: Upper Right: no cyanosis, no edema, no varicosities Upper Left: no cyanosis, no edema, no varicosities Lower Right: no cyanosis, no edema, no varicosities Lower Left: no cyanosis, no edema, no varicosities Neurologic: Cranial Nerves: grossly intact Sensation: grossly intact Assessment and Plan ASSESSMENT and PLAN: ESRD Plan: Patient admitted for creation of a left basilic vein antecubital fistula. I have discussed the risks options and benefits of the procedure with the patient. The patient understands the risks options and benefits and agrees to the procedure.
[~2016-08-18 09:31] MED LIST changes: +ATROPINE SULFATE 0.1 MG/ML 5ML SYR IV PRN; +CEFAZOLIN 2000 MG/60 ML D5W IV SCH; -D5W AND 1/4NSS 1000 ML IV SCH; +EpHEDrine SULFATE INJ 50 MG/ML AMP IV PRN; +FENTANYL CITRATE INJ 50 MCG/1 ML 2 ML VIAL IV PRN; +HYDROmorphone INJ 1 MG/ML SYR IV PRN; +ONDANSETRON INJ 2 MG/ML 2 ML VIAL IV PRN
--- NOTE | 2016-08-18 09:43 | History & Physical Bridge Note ---
H&P Re-Evaluation Bridge Note: I have examined the patient, reviewed the History & Physical and in the interval since the performance of the History & Physical I have noted the following changes of clinical significance: No changes noted
[2016-08-18 09:58] VITALS: BP 189/88; PULSE 62; TEMP 36.6; O2SAT 97; Ht 175.3 cm; Wt 85.9 kg
[2016-08-18] MEDS ORDERED: GELATIN SPONGE 12-7MM ONE (10:11)
[2016-08-18] MEDS ORDERED: THROMBIN FOR SOLN 20000 UNIT KIT ONE (10:11)
[2016-08-18] MEDS ORDERED: BUPIVACAINE/EPINEPHRINE 0.5% MPF 1:200,000 30 ML VIAL ONE (10:11)
[2016-08-18] MEDS ORDERED: LIDOCAINE HCL 1% 20 ML VIAL ONE (10:11)
[2016-08-18] MEDS ORDERED: HEPARIN SOD (PORCINE) 1000 UNIT/ML 10 ML VIAL ONE (10:12)
[2016-08-18] MEDS ORDERED: PROPOFOL IV EMULSION 10 MG/ML 20 ML VIAL IV ONE (10:13)
[2016-08-18] MEDS ORDERED: FENTANYL CITRATE INJ 50 MCG/1 ML 2 ML VIAL ONE (10:13)
[2016-08-18] MEDS ORDERED: LIDOCAINE HCL 2% 2 ML VIAL (20MG/ML) ONE (10:13)
[2016-08-18] MEDS ORDERED: GELATIN SPONGE SZ 100 ONE (10:14)
[2016-08-18] MEDS ORDERED: MIDAZOLAM HCL 1 MG/ML 2ML VIAL ONE ×2 (10:14→11:31)
[2016-08-18 10:41] LABS: BUN/CREATININE RATIO 5.6 (10-20); CALCIUM 8.9 mg/dl (8.5-10.1); CREATININE 2.9 mg/dl (0.60-1.40)
--- NOTE | 2016-08-18 12:08 | [facility] Post Operative Brief Note ---
Immediate Operative Summary Operative Date Aug 18, 2016. Pre-Operative Diagnosis End stage renal disease Post-Operative Diagnosis Same as pre-operative Procedure(s) Performed Left antecubital basilic vein arterio-venous fistula creation Surgeon Dr. Deng Velazquez MD [employer] Consultant Surgeon(s) Ofe Anthony PA-C Estimated Blood Loss 15ml Findings Good bruit with doppler Specimens None per surgeon Anesthesia MAC Complication(s) None Disposition Recovery Room / PACU
--- NOTE | 2016-08-18 12:09 | Discharge Instructions ---
Discharge Instructions Date of Service Aug 18, 2016. Visit Reason for Visit: End Stage Renal Disease Discharge Discharge Diagnosis / Problem: End stage renal disease Discharge Goals Goal(s): Therapeutic intervention Activity Recommendations Activity Limitations: per Instructions/Follow-up section Anesthesia . Post Anesthesia Instructions: If you have had General Anesthesia or IV Sedation: * Do not drive today. * Resume driving when surgeon permits. * Do not make important decisions or sign legal documents today. * Call surgeon for: 1. Temperature elevations greater than 101 degrees F. 2. Uncontrollable pain. 3. Excessive bleeding. 4. Persistent nausea and vomiting. 5. Medication intolerance (nausea, vomiting or rash). * For nausea and vomiting use only clear liquids such as: tea, soda, bouillon until nausea subsides, then gradually increase diet as tolerated. * If you have any concerns or questions, call your surgeon's office. If physician is unavailable and it is an emergency, call 911 or go to the nearest emergency room. . Instructions / Follow-Up Instructions / Follow-Up Call [phone] to schedule a follow up appointment if one not already scheduled. ACTIVITY RECOMMENDATIONS: See Above SPECIAL CARE INSTRUCTIONS: Call your doctor if: * Temperature above 101 degrees * Pain not relieved by pain medicine ordered * There is increased drainage or redness from any incision * You have any unanswered questions or concerns. Diet Recommendations Recommended Home Diet: resume previous diet Procedures Procedures Performed: Left antecubital basilic vein arterio-venous fistula creation Pending Studies Studies pending at discharge: no Medical Emergencies . Who to Call and When: Medical Emergencies: If at any time you feel your situation is an emergency, please call 911 immediately. . Non-Emergent Contact Non-Emergency issues call your: Surgeon . . "Provider Documentation" section prepared by Deng Velazquez. [place] Drug Monitoring Program Search Results: patient reviewed within database, no issues identified
[2016-08-18] MEDS ORDERED: OXYC-57 PO (12:10)
[2016-08-18 12:35] VITALS: BP 158/77; PULSE 61; TEMP 36.5; O2SAT 96
--- NOTE | 2016-08-18 12:55 | Medical Student: [facility] ---
Immediate Operative Summary Operative Date Aug 18, 2016. Pre-Operative Diagnosis ESRD Post-Operative Diagnosis same Procedure(s) Performed Left antecubital basilic vein AV fistula creation Surgeon Dr. Velazquez Foster Parent Surgeon(s) Ofe Anthony PA-C Estimated Blood Loss 15cc Findings bruit heard on doppler Anesthesia general Complication(s) None Disposition Recovery Room / PACU
[2016-08-18 13:05] VITALS: BP 146/74; PULSE 60; O2SAT 97
[2016-08-18 13:35] VITALS: BP 138/74; PULSE 61; TEMP 36.5; O2SAT 97
--- NOTE | 2016-08-18 13:35 | OPERATIVE REPORT ---
DATE OF OPERATION: 08/18/2016 PREOPERATIVE DIAGNOSIS: End-stage renal disease. POSTOPERATIVE DIAGNOSIS: Same. PROCEDURE: Left antecubital basilic vein AV fistula creation. SURGEON: Dr. Velazquez. ANESTHETIC: MAC. PROCEDURE INDICATIONS: The patient is a 66-year-old gentleman with end-stage renal disease in need of a permanent access. Basilic vein fistula was recommended in the left arm in the antecubital fossa. He understood the risks, options and benefits and agreed to have this procedure. DESCRIPTION OF PROCEDURE: The patient was taken to the operating room and placed in the supine position. After the left arm was prepped and draped in a sterile manner, local anesthetic was administered. A transverse incision was made below the antecubital crease. The basilic vein was identified at the antecubital level. It was isolated for approximately 5 cm. The brachial artery was identified at that level, was soft and very usable and of good size. The basilic vein was then ligated distally and divided. It was gently dilated. The brachial artery was clamped proximally and distally. Longitudinal arteriotomy was then made. The vein was then anastomosed in an end-to-side fashion to the brachial artery using a running 7-0 Prolene suture in the usual vascular fashion. Prior to completing the closure, backbleeding and forward bleeding was allowed to occur and the final few sutures were placed and securely tied. Clamps were then removed, thrill was felt. Excellent bruit was heard with the Doppler. Adequate hemostasis was then obtained. The wound was then closed in the usual fashion using running 3-0 Vicryl suture for the subcutaneous layer and a running 4-0 subcuticular suture for the skin edges. Dermabond was used for a dressing. The patient left the operating room in satisfactory condition and tolerated the procedure well. I attest to the content of the Intraoperative Record and any orders documented therein. Any exceptio ns are noted below.
--- NOTE | 2016-08-18 15:11 | Anesthesiology Progress Note ---
Anesthesia Post Op Note Date & Time Aug 18, 2016 at 15:10 Vital Signs Pain Intensity: 2 Vital Signs Past 12 Hours Date Time Temp Pulse Resp B/P Pulse Ox O2 Delivery O2 Flow Rate FiO2 08/18/16 13:35 36.5 61 2 138/74 97 Room Air 08/18/16 13:05 60 2 146/74 97 Room Air 08/18/16 12:35 36.5 61 2 158/77 96 Room Air 08/18/16 12:25 36.2 61 16 150/75 96 Room Air 08/18/16 12:15 63 16 147/75 96 Room Air 08/18/16 12:07 36.3 80 16 142/77 100 Room Air 08/18/16 09:58 36.6 62 20 189/88 97 Room Air Notes Mental Status: alert / awake / arousable, participated in evaluation Pt Amnestic to Procedure: Yes Nausea / Vomiting: adequately controlled Pain: adequately controlled Airway Patency, RR, SpO2: stable & adequate BP & HR: stable & adequate Hydration State: stable & adequate Anesthetic Complications: no major complications apparent
[2016-08-18] MEDS ORDERED: SODIUM CHLORIDE 0.9% 1000ML 1,000 ML IV SCH ×2 (16:30)
--- NOTE | 2016-08-19 13:17 | Medical Consult ---
Consultation Note Date of Service Aug 19, 2016. Consultation Note I assisted Dr Velazquez with Naveen Bravo's Left upper arm brachiobasilic vein avf creation on 08/18/16, due to lack of resident availability.
[2016-10-28] MEDS ORDERED: MECL1TAB42 PO (13:10)
[2016-10-28] MEDS ORDERED: DUTA0.5C PO (13:10)
[2016-10-28] MEDS ORDERED: ASPI81TA28 PO (13:10)
[2016-10-28] MEDS ORDERED: MULT-506 PO (13:10)
[2016-10-28] MEDS ORDERED: ERGO500037 PO (13:12)
[2016-10-28] MEDS ORDERED: SILO8CAP PO (13:12)
[2016-10-28] MEDS ORDERED: METO-648 PO (20:23)
[2017-01-18] MEDS ORDERED: CALC667C4 PO (07:57)
[2017-01-18] MEDS ORDERED: INSDGI SC (07:57)
== END 2016-08-18 13:40 | disposition home or self-care (01) ==
LOC: C.ACU 09:31
PROVIDERS: ATTEND Surgery Vascular Surgery
DX: N18.6 End stage renal disease (principal); I12.0 Hypertensive chronic kidney disease with stage 5 chronic kidney disease or end stage renal disease; Z79.82 Long term (current) use of aspirin; Z79.899 Other long term (current) drug therapy; Z79.4 Long term (current) use of insulin; N40.0 Benign prostatic hyperplasia without lower urinary tract symptoms; E11.22 Type 2 diabetes mellitus with diabetic chronic kidney disease; G35 Multiple sclerosis

== ENCOUNTER 2016-10-27 05:56 | Day surgery (SDC) | payer OTHER ==
[2016-10-19 11:17] VITALS: BMI 26.0
[~2016-10-27] VITALS: Ht 175.3 cm; Wt 81.8 kg
[~2016-10-27 05:56] MED LIST changes: -ATROPINE SULFATE 0.1 MG/ML 5ML SYR IV PRN; -CEFAZOLIN 2000 MG/60 ML D5W IV SCH; -EpHEDrine SULFATE INJ 50 MG/ML AMP IV PRN; -FENTANYL CITRATE INJ 50 MCG/1 ML 2 ML VIAL IV PRN; -HYDROmorphone INJ 1 MG/ML SYR IV PRN; -INTE44IN INJ; -ONDANSETRON INJ 2 MG/ML 2 ML VIAL IV PRN
[2016-10-27] MEDS ORDERED: CEFAZOLIN 2000 MG/60 ML D5W IV SCH (06:00)
[2016-10-27] MEDS ORDERED: SODIUM CHLORIDE 0.9% 1000ML 1,000 ML IV SCH ×2 (06:00)
--- NOTE | 2016-10-27 06:00 | History and Physical ---
History & Physical Date of Service Oct 27, 2016. History & Physical Chief Complaint ESRD, post basilic vein fistula creation History of Present Illness The patient is a 66 year old male with HTN, admitted with acute on chronic renal failure, and had a permcath inserted for dialysis. He then had permament fistula creation. This was a left upper arm basilic vein fistula. Pt states feeling fine. He is now admitted for a transposition and possible revision due to a stenosis seen on ultrasoundDenies LEWIS, fever, chills, chest pain, SOB, abd pain, N/v, rest pain, claudication, other complaints. Allergies Coded Allergies: No Known Allergies (Verified , 07/20/16) Home Medications Scheduled Acetaminophen (Tylenol), 1 TAB PO PRN Aspirin (Aspirin Ec), 81 MG PO HS Atorvastatin (Lipitor), 20 MG PO HS Dutasteride (Avodart), 0.5 MG PO HS Ergocalciferol (Vitamin D 81068 Unit), 50,000 UNIT PO MONTH Hctz/Losartan (Hyzaar 25MG/100MG), 1 TAB PO QAM Insulin Glargine (Lantus Solostar), 68 SC BID Interferon Beta-1A (Rebif), 0.5 ML INJ 3XWEEK Isosorbide Mononitrate Ext Rel (Imdur Ext Rel), 30 MG PO QAM Meclizine Hcl (Meclizine Hcl), 1 TAB PO PRN Metoprolol Succ (Toprol Xl) (Toprol-Xl ), 200 MG PO QAM Multivitamin (Multivitamin), 1 TAB PO QPM Nifedipine Ext Rel (Procardia Xl Ext Rel), 90 MG PO QAM Silodosin (Rapaflo), 1 CAP PO HS Problem List Medical Problems: (1) Abnormal LFTs (liver function tests) (2) BPH (benign prostatic hyperplasia) (3) Diabetes (4) Hypertension (5) Multiple sclerosis (6) Proteinuria (7) Renal failure (ARF), acute on chronic Surgical / Medical History Hx Cardiac Surgery: No Hx Abdominal Surgery: Yes (colostomy, colostomy repair, hernia, appendectomy) Hx Cancer Surgery: No Hx Thoracic Surgery: No Hx Orthopedic: No Hx Urinary Tract Surgery: No HX Other Surgery: No Past Medical/Surgical History: Hypertension Family History + HTN Social History Smoking Status: Never Smoker Hx Tobacco Use In Past Year?: No Hx Alcohol Use - Type & Amnt: Yes (rare-single beer) Hx Substance Use -Type & Amnt: No Review of Systems Constitutional: No chills, No fever, No malaise Skin: No change in color Eyes: No visual changes ENMT: No sore throat Respiratory: No PHELPS, No cough, No hemoptysis, No short of breath Cardiovascular: No chest pain, No chest pressure, No edema, No intermittent claudication, No syncope Gastrointestinal: No abdominal pain, No nausea Neurologic: No dizziness, No headache, No lethargy, No numbness, No tingling Physical Exam Constitutional: General Apperance: heathly-appearing, well-nourished, well-developed Level of Distress: NAD Psychiatric: Mental Status: active & alert, normal mood, normal affect Orientation: oriented except where noted, to time, to place, to person Memory: recent memory normal, remote memory normal Head: normocephalic, atraumatic Eyes: EOM: EOMI ENMT: normal ENT inspection, hearing grossly normal Neck: supple, trachea midline Lungs: Respiratory effort: no dyspnea Auscultation: no wheezing, no rales/crackles, no rhonchi, decreased breath sounds Cardiovascular: Apical Impulse: not displaced Heart Auscultation: RRR, no rubs, no gallops Peripheral Pulses: Pulses: full and equal, in all extremities except if noted Bruits: none appreciated Carotid Pulse: normal on the left, normal on the right Brachial Pulses: normal on the left, normal on the right Radial Pulse: normal on the left, normal on the right Femoral Pulse: normal on the left, normal on the right Posterior Tibialis Pulse: decreased on the left, decreased on the right Dorsalis Pedis Pulse: decreased on the left, decreased on the right Abdomen: Bowel Sounds: normal Inspection & Palpation: soft, non-distended, no tenderness, guarding & rebound Musculoskeletal: normal strength (5/5 throughout), normal tone Extremities: Upper Right: no cyanosis, no edema, no varicosities Upper Left: no cyanosis, no edema, no varicosities Lower Right: no cyanosis, no edema, no varicosities Lower Left: no cyanosis, no edema, no varicosities, good thrill and bruit proximal fistula Neurologic: Cranial Nerves: grossly intact Sensation: grossly intact Assessment and Plan ASSESSMENT and PLAN: ESRD Post basilic vein fistula creation left arm Plan: Patient admitted for transpostion of a left basilic vein antecubital fistula and a revison if needed. I have discussed the risks options and benefits of the procedure with the patient. The patient understands the risks options and benefits and agrees to the procedure.
[2016-10-27 06:20] VITALS: BP 145/72; PULSE 67; TEMP 36.5; O2SAT 97; Ht 175.3 cm; Wt 81.8 kg
[2016-10-27] MEDS ORDERED: FENTANYL CITRATE INJ 50 MCG/1 ML 2 ML VIAL IV PRN (06:30)
[2016-10-27] MEDS ORDERED: ONDANSETRON INJ 2 MG/ML 2 ML VIAL IV PRN (06:30)
[2016-10-27] MEDS ORDERED: EpHEDrine SULFATE INJ 50 MG/ML AMP IV PRN (06:30)
[2016-10-27] MEDS ORDERED: ATROPINE SULFATE 0.1 MG/ML 5ML SYR IV PRN (06:30)
[2016-10-27] MEDS ORDERED: PROPOFOL IV EMULSION 10 MG/ML 20 ML VIAL IV ONE ×2 (06:55→09:13)
[2016-10-27] MEDS ORDERED: MIDAZOLAM HCL 1 MG/ML 2ML VIAL ONE (06:55)
[2016-10-27] MEDS ORDERED: FENTANYL CITRATE INJ 50 MCG/1 ML 2 ML VIAL ONE (06:55)
[2016-10-27] MEDS ORDERED: THROMBIN FOR SOLN 20000 UNIT KIT ONE (06:57)
[2016-10-27] MEDS ORDERED: GELATIN SPONGE 12-7MM ONE (06:57)
[2016-10-27] MEDS ORDERED: HEPARIN SOD (PORCINE) 1000 UNIT/ML 10 ML VIAL ONE ×2 (06:57→09:32)
[2016-10-27] MEDS ORDERED: LIDOCAINE HCL 1% 20 ML VIAL ONE ×2 (06:57→08:23)
[2016-10-27 06:59] LABS: PROTHROMBIN TIME (PATIENT) 10.7 SECONDS (9.0-12.0)
[2016-10-27] MEDS ORDERED: BUPIVACAINE/EPINEPHRINE 0.25% 1:200,000 30 ML VIAL ONE ×2 (07:06→08:23)
[2016-10-27] MEDS ORDERED: LIDOCAINE/EPINEPHRINE 1% 20 ML VIAL ONE (07:06)
[2016-10-27] MEDS ORDERED: GELATIN SPONGE SZ 100 ONE (07:27)
[2016-10-27] MEDS ORDERED: EpHEDrine SULFATE 50MG/5ML SYR ONE (09:16)
[2016-10-27] MEDS ORDERED: LIDOCAINE HCL 2% 2 ML VIAL (20MG/ML) ONE (09:34)
--- NOTE | 2016-10-27 10:09 | [facility] Post Operative Brief Note ---
Immediate Operative Summary Operative Date Oct 27, 2016. Pre-Operative Diagnosis End Stage Renal Disease, Post Basilic Vein Fistula Creation Post-Operative Diagnosis End Stage Renal Disease, Post Basilic Vein Fistula Creation Procedure(s) Performed Left Upper Extremity Basilic Vein Transpositon Surgeon Dr. Velazquez Systems Coordinator Surgeon(s) Socorro Ching MD Estimated Blood Loss 15 cc Findings good thrill Specimens none per surgeon Anesthesia MAC Complication(s) None Disposition Recovery Room / PACU
[2016-10-27] MEDS ORDERED: OXYC-57 PO (10:10)
--- NOTE | 2016-10-27 10:13 | Discharge Instructions ---
Discharge Instructions Date of Service Oct 27, 2016. Visit Reason for Visit: End Stage Renal Disease Discharge Discharge Diagnosis / Problem: End stage renal disease Discharge Goals Goal(s): Therapeutic intervention Activity Recommendations Activity Limitations: per Instructions/Follow-up section Exercise/Sports Limitations: rest today May Resume Sexual Activity: when tolerated Driving or Machine Use: resume 3 days after discharge Anesthesia . Post Anesthesia Instructions: If you have had General Anesthesia or IV Sedation: * Do not drive today. * Resume driving when surgeon permits. * Do not make important decisions or sign legal documents today. * Call surgeon for: 1. Temperature elevations greater than 101 degrees F. 2. Uncontrollable pain. 3. Excessive bleeding. 4. Persistent nausea and vomiting. 5. Medication intolerance (nausea, vomiting or rash). * For nausea and vomiting use only clear liquids such as: tea, soda, bouillon until nausea subsides, then gradually increase diet as tolerated. * If you have any concerns or questions, call your surgeon's office. If physician is unavailable and it is an emergency, call 911 or go to the nearest emergency room. . Diet Recommendations Recommended Home Diet: resume previous diet Procedures Procedures Performed: Left Upper Extremity Basilic Vein Transpositon Pending Studies Studies pending at discharge: no Medical Emergencies . Who to Call and When: Medical Emergencies: If at any time you feel your situation is an emergency, please call 911 immediately. . Non-Emergent Contact Non-Emergency issues call your: Surgeon . . "Provider Documentation" section prepared by Deng Velazquez. .
--- NOTE | 2016-10-27 11:00 | Anesthesiology Progress Note ---
Anesthesia Post Op Note Date & Time Oct 27, 2016 at 10:59 Vital Signs Pain Intensity: 0 Vital Signs Past 12 Hours Date Time Temp Pulse Resp B/P (MAP) Pulse Ox O2 Delivery O2 Flow Rate FiO2 10/27/16 10:55 36.1 58 16 110/58 95 Room Air 10/27/16 10:45 58 16 106/57 97 Room Air 10/27/16 10:35 59 20 117/58 100 Nasal Cannula 2 10/27/16 10:29 36.0 61 20 110/59 97 Nasal Cannula 4 10/27/16 06:20 36.5 67 18 145/72 (96) 97 Room Air Notes Mental Status: alert / awake / arousable, participated in evaluation Pt Amnestic to Procedure: Yes Nausea / Vomiting: adequately controlled Pain: adequately controlled Airway Patency, RR, SpO2: stable & adequate BP & HR: stable & adequate Hydration State: stable & adequate Anesthetic Complications: no major complications apparent
[2016-10-27 11:05] VITALS: BP 111/57; PULSE 59; TEMP 35.9; O2SAT 96
[2016-10-27 11:33] VITALS: BP 109/57; PULSE 58; TEMP 36.3; O2SAT 98
[2016-10-27 12:05] VITALS: BP 99/53; PULSE 63; O2SAT 97
--- NOTE | 2016-10-27 15:23 | [facility] Operative Report ---
Operative Report Operative Date Oct 27, 2016. Pre-Operative Diagnosis End Stage Renal Disease, Post Basilic Vein Fistula Creation Post-Operative Diagnosis End Stage Renal Disease, Post Basilic Vein Fistula Creation Procedure(s) Performed Basilic Vein Transposition Surgeon Dr. Deng Velazquez MD Translator/Interpreter Surgeon(s) Dr. Socorro Ching MD Estimated Blood Loss 15 cc Findings Large caliber basilic vein. Good thrill in fistula at close of case. Palpable radial pulse. Specimens none per surgeon Anesthesia MAC and Local Complication(s) None Disposition Recovery Room / PACU Indications Mr. Naveen Bravo is a 66 year old male with HTN, admitted with acute on chronic renal failure, and had a permcath inserted for dialysis. He previously underwent the first stage of a 2-stage brachiobasilic AV fistula. There was a good thrill over the basilic vein. He was recommended to undergo a basilic vein transposition. The risks, benefits, and alternatives were discussed with the patient and he consented to the procedure. Description of Procedure The patient was taken to the operating room and placed in the supine position. His left arm and axilla was prepped and draped in the usual sterile fashion. A safety timeout was performed and the patient, procedure, and sidedness were correctly identified. Sedation was administered by our anesthesia colleagues. A good thrill was palpated over the basilic vein just proximal to the crease of the elbow. Local anesthesia was injected in the skin overlying the basilic vein. A skin incision was made with a 15 blade scalpel. Subcutaneous tissues were divided with electrocautery. The basilic vein was identified and dissected circumferentially. We continued our dissection of the basilic vein proximally to the axilla until the entire length of the basilic vein was dissected free. Side branches were ligated and divided with silk ties. At the level of the mid humerus, there were two large side branches. These were ligated with silk suture. The vein side was oversewn with 6-0 Prolene in 2 layers with a horizontal mattress followed by running layer. We then turned our attention to the brachial artery. This was dissected out approximally 3 cm proximal to the crease of the elbow. The basilic vein was ligated and divided as distally as possible. The vein was dilated with heparinized saline and appeared to be large in caliber. The skin overlying the biceps was anesthetized with local anesthesia. A counter incision was made at the level of the mid humerus. A curved aortic clamp was used to create a tunnel from the counter incision to the axilla. The basilic vein was tunneled from the axilla to counter incision and then counter incision to antecubital fossa. The vein was distended with heparinized saline to ensure that there were no twists or kinks. Angled DeBakey vascular clamps were placed on the brachial artery proximally and distally. A longitudinal arteriotomy was made with an 11-blade scalpel and extended with Bah scissors. The basilic vein was anastomosed to the brachial artery with 6- 0 Prolene in a running fashion. Prior to completion of the anastomosis, all vessels we backbleed. The anastomosis was hemostatic. The entire wound was irrigated and small areas of bleeding were controlled with electrocautery. Subcutaneous tissues were reapproximated with 3-0 Vicryl in a running fashion. The skin of the counter incision was closed with 3 interrupted 4-0 Vicyrl sutures. Dermabond skin glue was applied to the skin overlying the counter incision. The skin of the basilic vein exposure incision was reapproximated with richard. A sterile dressing was applied. The patient was awakened and transferred to the PACU in stable condition. He tolerated the procedure well and there were no immediate complications. Dr. Deng Velazquez was present for the entire procedure. I, Dr. Velazquez was present and scrubed for the entire procedure. I attest to the content of the Intraoperative Record and any orders documented therein. Any exceptions are noted below.
[2016-10-28] MEDS ORDERED: MULT-506 PO (13:10)
[2016-10-28] MEDS ORDERED: MECL1TAB42 PO (13:10)
[2016-10-28] MEDS ORDERED: DUTA0.5C PO (13:10)
[2016-10-28] MEDS ORDERED: ASPI81TA28 PO (13:10)
[2016-10-28] MEDS ORDERED: ERGO500037 PO (13:12)
[2016-10-28] MEDS ORDERED: SILO8CAP PO (13:12)
[2016-10-28] MEDS ORDERED: ISOS30TA3 PO (20:23)
[2016-10-28] MEDS ORDERED: NIFE90TA27 PO (20:23)
[2016-10-28] MEDS ORDERED: METO-648 PO (20:23)
[2016-10-28] MEDS ORDERED: INSDGIPEN SC (20:52)
[2017-01-18] MEDS ORDERED: CALC667C4 PO (07:57)
[2017-01-18] MEDS ORDERED: INSDGI SC (07:57)
== END 2016-10-27 12:10 | disposition home or self-care (01) ==
LOC: C.ACU 05:56
PROVIDERS: ATTEND Surgery Vascular Surgery
DX: N18.6 End stage renal disease (principal); I12.0 Hypertensive chronic kidney disease with stage 5 chronic kidney disease or end stage renal disease; G35 Multiple sclerosis; N40.0 Benign prostatic hyperplasia without lower urinary tract symptoms; Z79.899 Other long term (current) drug therapy; Z79.82 Long term (current) use of aspirin; Z79.4 Long term (current) use of insulin; Z82.49 Family history of ischemic heart disease and other diseases of the circulatory system

== ENCOUNTER 2016-10-28 18:57 | Inpatient (IN) | payer OTHER ==
[~2016-10-28] VITALS: Ht 175.3 cm; Wt 84.2 kg
[~2016-10-28 18:57] MED LIST changes: +ASPI81TA28 PO; +DUTA0.5C PO; +ERGO500037 PO; +MECL1TAB42 PO; -METO100T44 PO; +METO1TAB69 PO; +MULT-506 PO; +OXYC-57 PO; +SILO8CAP PO
[2016-10-28] MEDS ORDERED: SODIUM CHLORIDE 0.9% 1000ML 1,000 ML IV STA ×2 (19:06→19:09)
[2016-10-28] MEDS ORDERED: ONDANSETRON INJ 2 MG/ML 2 ML VIAL IV STA (19:08)
--- NOTE | 2016-10-28 19:46 | DIAGNOSTIC IMAGING REPORT ---
HEAD CT NONCONTRAST CT DOSE: HISTORY: fall TECHNIQUE: Multiaxial CT images of the head were performed without the use of intravenous contrast. Automated exposure control was utilized for this study. Comparison: Brain MRI 06/22/2016. Findings: The paranasal sinuses and mastoid air cells are clear. The calvarium and skull base are intact. There is no mass, hematoma, midline shift, acute infarct. White matter hypodensity remains unchanged. The ventricles and sulci demonstrate mild age-related involutional changes. Bilateral basal calcifications. Impression: No acute intracranial abnormality. No change in the white matter hypodensity consistent with the patient's history of multiple sclerosis. Electronically signed by: Kory Jett M.D. 10/28/2016 7:45 PM Dictated Date/Time: 10/28/2016 7:38 PM
--- NOTE | 2016-10-28 19:51 | DIAGNOSTIC IMAGING REPORT ---
CERVICAL SPINE CT CT DOSE: 1420.36 mGy.cm HISTORY: Neck pain. fall TECHNIQUE: Multiaxial CT images of the cervical spine were performed and reformatted in the sagittal and coronal plane without the use of contrast. COMPARISON: Cervical spine MRI 06/22/2016. FINDINGS: No fractures. No subluxation. Prevertebral soft tissues and the C1-C2 interval are intact. No pneumothorax. There is a 7 mm groundglass nodule within the left lung apex. Mild disc space narrowing and endplate osteophytes at C5-C6 and C6-C7. IMPRESSION: No fractures within the cervical spine. A 7 mm groundglass nodule within the left lung apex. Please refer to the chart below for recommended follow-up. Please refer to below summary of Fleischner criteria recommendations for follow-up of incidental CT nodules (Triston Garcia, Guidelines for management of small pulmonary nodules detected on CT scans: A statement from the Fleischner Society, Radiology 237: [phone].) SOLID NODULES Solitary nodule size: <6 mm * Low risk patients: no follow-up needed * high risk patients: optional CT at 12 months Solitary nodule size: 6-8 mm * Low risk patients: follow-up at 6-12 months, then consider further follow-up at 18-24 months * high risk patients: initial follow-up CT at 6-12 months and then at 18-24 months if no change Solitary nodule size: >8 mm * either low or high risk patients - consider follow-up CT at 3 months, and/or CT-PET, and/or biopsy Multiple nodules size: <6 mm * Low risk patients: no routine follow-up * high risk patients: optional CT at 12 months Multiple nodules size: 6-8 mm * Low risk patients: follow-up at 3-6 months, then consider further follow-up at 18-24 months * high risk patients: follow-up at 3-6 months, then at 18-24 months if no change Multiple nodules size: >8 mm * Low risk patients: follow-up at 3-6 months, then consider further follow-up at 18-24 months * high risk patients: follow-up at 3-6 months, then at 18-24 months if no change Note: newly detected indeterminate nodule in persons 35 years of age or older. * Low risk patients: minimal or absent history of smoking and/or other known risk factors * high risk patients: history of smoking or of other known risk factors (e.g. first degree relative with lung cancer, or exposure to asbestos, radon, uranium) * if a nodule up to 8 mm is partly solid or is ground glass further follow-up is required after 24 months to exclude possible slow growing adenocarcinoma (JULIAN) SUBSOLID NODULES Solitary pure ground-glass nodule * nodule size <6 mm - no CT follow-up required * nodule size >=6 mm - follow-up CT at 6-12 months, then every 2 years until 5 years Solitary part-solid nodule * nodule size <6 mm - no CT follow-up required * nodule size >=6 mm - follow-up CT at 3-6 months. If unchanged, and solid component remains <6 mm, then annual follow-up for 5 years Multiple subsolid nodules * nodule size <6 mm - follow-up CT at 3-6 months, consider further follow-up at 2 and 4 years if stable * nodule size >=6 mm - follow-up CT at 3-6 months, subsequent management based on the most suspicious nodule(s) Electronically signed by: Kory Jett M.D. 10/28/2016 7:49 PM Dictated Date/Time: 10/28/2016 7:44 PM
--- NOTE | 2016-10-28 19:54 | DIAGNOSTIC IMAGING REPORT ---
MAXILLOFACIAL CT CT DOSE: HISTORY: Facial injury. fall TECHNIQUE: Multiaxial CT images of the maxillofacial region were performed and reformatted in the coronal plane without the use of contrast. COMPARISON: None. FINDINGS: Probable nondisplaced fracture within the nasal bones. Mild nasal soft tissue swelling and a laceration. The orbital floors, lamina papyracea, mandible, skull base, pterygoid plates, and zygomatic arches are intact. IMPRESSION: Mild nasal soft tissue swelling and a small laceration. Probable nondisplaced nasal bone fractures. Electronically signed by: Kory Jett M.D. 10/28/2016 7:53 PM Dictated Date/Time: 10/28/2016 7:49 PM
[2016-10-28] MEDS: FENTANYL CITRATE INJ 50 MCG/1 ML 2 ML VIAL IV PRN ×2 (20:05→22:59)
[2016-10-28 20:06] LABS: BASO % 0.6 %; BASO ABS # 0.04 K/uL (0-0.2); COMPLETE YES; EOS % 3.5 %; HEMATOCRIT 30.5 % (42-52); IG% 0.2 %; LYMPH % 20.7 %; LYMPH ABS # 1.34 K/uL (1.2-3.4); MEAN CELL VOLUME 88.7 fL (80-100); MEAN CORPUSCULAR HEMOGLOBIN 30.8 pg (25-34); MEAN CORPUSCULAR HGB CONC 34.8 g/dl (32-36); MEAN PLATELET VOLUME 9.8 fL (7.4-10.4); MONO % 11.7 %; NEUT % 63.3 %; PLATELET COUNT 169 K/uL (130-400); RED BLOOD COUNT 3.44 M/uL (4.7-6.1); WHITE BLOOD COUNT 6.48 K/uL (4.8-10.8)
[2016-10-28] MEDS ORDERED: NIFE90TA27 PO (20:23)
[2016-10-28] MEDS ORDERED: ISOS30TA3 PO (20:23)
[2016-10-28] MEDS ORDERED: METO1TAB70 PO (20:23)
[2016-10-28 20:26] LABS: ALT/SGPT 103 U/L (12-78); BLOOD UREA NITROGEN 13 mg/dl (7-18); BUN/CREATININE RATIO 5.4 (10-20); CALCIUM 8.1 mg/dl (8.5-10.1); CARBON DIOXIDE 34 mmol/L (21-32); CHLORIDE 100 mmol/L (98-107); GLUCOSE 98 mg/dl (70-99); SODIUM 140 mmol/L (136-145)
[2016-10-28 20:36] LABS: ALKALINE PHOSPHATASE 204 U/L (45-117); AST/SGOT 112 U/L (15-37)
[2016-10-28] MEDS ORDERED: INSDGIPEN SC (20:52)
--- NOTE | 2016-10-28 21:40 | DIAGNOSTIC IMAGING REPORT ---
ORBIT RADIOGRAPHS 3 VIEWS HISTORY: pre-MRI screening. COMPARISON: None. FINDINGS: There are no radiopaque foreign bodies identified within the orbits. IMPRESSION: No radiopaque foreign bodies identified within the orbits. Electronically signed by: Kory Jett M.D. 10/28/2016 9:38 PM Dictated Date/Time: 10/28/2016 9:38 PM
--- NOTE | 2016-10-28 21:41 | DIAGNOSTIC IMAGING REPORT ---
CHEST ONE VIEW PORTABLE HISTORY: EVALUATE ALTERED MENTAL STATUS/WEAKNESS COMPARISON: Chest 07/20/2016. FINDINGS: No pneumothorax. Left basilar linear densities. No pleural effusions. Low lung volumes. The heart is normal in size. Right jugular catheter terminates in the distal SVC. IMPRESSION: Low lung volumes. Left basilar linear densities. This favors atelectasis. Electronically signed by: Kory Jett M.D. 10/28/2016 9:40 PM Dictated Date/Time: 10/28/2016 9:38 PM
--- NOTE | 2016-10-28 23:05 | DIAGNOSTIC IMAGING REPORT ---
CERVICAL SPINE MRI HISTORY: severe neck and arm pain s/p fall, ?central cord TECHNIQUE: Multiplanar multisequence MRI of the cervical spine was performed without the use of contrast. COMPARISON STUDY: Cervical spine CT 10/28/2016. Cervical spine MRI 06/22/2016. FINDINGS: Scattered T2 hyperintense foci seen within the cervical spine consistent with the patient's history of demyelinating disease. There is increased T2 hyperintensity within the cord at the C6-C7 level. Mild motion artifact. Trace prevertebral edema. There is suggestion of tear of the anterior longitudinal ligament at the C6-C7 level best seen on sagittal image 8 of 16. There is slight increased T2 signal within the disc space at this level due to the posttraumatic changes. Mild edema within the interspinous locations from C3 through C6. This may also represent mild ligamentous injury. Mild edema within the right paraspinal/scalene muscles. This favors muscular strain. There is focal increased T2 signal within the ligamentum flavum at the C6-C7 level which is also suspicious for a focal tear. The posterior longitudinal ligament appears intact. Mild disc space narrowing at C5-C6, unchanged. The visualized posterior fossa is unremarkable. The C1-C2 interval is maintained. C2-C3: No significant central canal or neural foraminal narrowing. C3-C4: Small broad-based posterior disc osteophyte complex which abuts the left anterior cord and results in mild left neural foraminal narrowing. This remains unchanged. C4-C5: Small broad-based posterior disc osteophyte complex which abuts but does not deform the anterior cord. There is mild right neural foraminal narrowing, unchanged. C5-C6: Broad-based posterior disc ossified complex which abuts and slightly deforms anterior cord. There is severe right and moderate left neural foraminal narrowing, unchanged. C6-C7: Broad-based posterior disc osteophyte complex with a tiny focal central disc protrusion. This abuts and slightly deforms anterior cord. This is a progressed compared the prior study. C7-T1: No significant central canal or neural foraminal narrowing. IMPRESSION: 1. No fracture or subluxation within the cervical spine. 2. There is a focal tear through the anterior longitudinal ligament at the C6-C7 disc space level with increased T2 signal within the anterior C6-C7 disc space consistent with an acute injury. There is also mild edema at the C6-C7 ligamentum flavum consistent with a tear. 3. Scattered foci of T2 hyperintensity within the cervical spinal cord are again noted and is consistent with the patient's history of multiple sclerosis. However, there is progressive T2 hyperintensity within the cord at the C6-C7 level. This is concerning for acute posttraumatic cord edema given the adjacent ligamentous injury. 4. Mild edema within the C3-C6 interspinous locations suggestive of ligamentous injury. 5. Broad-based posterior disc osteophyte complex with a tiny focal central disc protrusion at C6-C7. This has progressed from the prior study and may be due to the acute injury. This slightly deforms anterior cord. Electronically signed by: Kory Jett M.D. 10/28/2016 11:03 PM Dictated Date/Time: 10/28/2016 10:49 PM
[2016-10-28 23:26] LABS: URINE APPEARANCE CLOUDY (CLEAR); URINE BILIRUBIN NEG (NEG); URINE COLOR DK YELLOW; URINE EPITHELIAL CELL AUTO >30 /lpf (0-5); URINE NITRITE NEG (NEG); URINE SPECIFIC GRAVITY 1.027 (1.000-1.030); UROBILINOGEN NEG (NEG)
[2016-10-28 23:34] LABS: MANUAL MICROSCOPIC REQUIRED? NO; REVIEW REQ? NO
[2016-10-29] MEDS ORDERED: DEXAMETHASONE SOD INJ 10 MG/ML VIAL IV ONE (00:15)
[2016-10-29] MEDS ORDERED: XYLOCAINE 1%/SOD BICARB 20 ML VIAL INFIL ONE (00:15)
--- NOTE | 2016-10-29 00:41 | EMERGENCY ROOM VISIT NOTE ---
ED Visit Note Patient seen and evaluated at the request of my attending physician, Dr Deal, for evaluation of a nasal bridge laceration. Please see Dr. Deal's dictation for full history of present illness and emergency Department course outside of this repair. In short, the patient suffered a fall today that resulted in several injuries. One of which is a 1.0 cm curvilinear laceration just to the left side of the mid nose. This does gape and will require repair. Laceration repair. Patient elects to have their laceration repaired. Verbal consent was obtained to perform the procedure. There is an abundance of materials available for the procedure. Patient is not allergic to latex. Using sterile technique the wound was cleaned with Betadine. The area was sterilely draped. 2 ml of 1% buffered lidocaine was used to anesthetize the nasal laceration. Once the patient was anesthetized, the wound was copiously irrigated under pressure with sterile saline. The wound was explored and there were no deep structures injured such as tendons, bone, or significant blood vessels. The laceration was repaired using 2 simple interrupted 6-0 nylon sutures with the wound edges being well approximated. Hemostasis was achieved. The area was cleaned with sterile saline and dressed with bacitracin ointment and bandage.Patient tolerated the procedure well without complications. Blood loss was negligible. Problem List Medical Problems: (1) Abnormal LFTs (liver function tests) Status: Chronic (2) BPH (benign prostatic hyperplasia) Status: Chronic (3) Diabetes Status: Chronic (4) Hypertension Status: Chronic (5) Multiple sclerosis Status: Chronic (6) Proteinuria Status: Resolved (7) Renal failure (ARF), acute on chronic Status: Chronic Surgical Problems: (1) Status post colostomy Status: Chronic Current/Historical Medications Scheduled Aspirin (Aspirin Ec), 81 MG PO HS Dutasteride (Avodart), 0.5 MG PO HS Ergocalciferol (Vitamin D 26763 Unit), 50,000 INTER.UNIT PO MONTHLY Insulin Glargine (Lantus Solostar), 60 UNITS SC QAM Isosorbide Mononitrate Ext Rel (Imdur Ext Rel), 30 MG PO QAM Metoprolol Succinate (Toprol Xl), 200 MG PO QAM Multivitamin (Multivitamin), 1 TAB PO QPM Nifedipine (Nifedipine Er), 90 MG PO QAM Silodosin (Rapaflo), 8 MG PO HS Scheduled PRN Meclizine Hcl (Meclizine Hcl), 25 MG PO UD PRN for Dizziness or Vertigo Oxycodone/Acetaminophen 5MG/325MG (Percocet 5MG/325MG), 1 TABLET PO Q4H PRN for Pain Allergies Coded Allergies: No Known Allergies (Verified , 10/27/16) Vital Signs Date Time Temp Pulse Resp B/P (MAP) Pulse Ox O2 Delivery O2 Flow Rate FiO2 10/29/16 00:00 76 20 150/72 94 Room Air 10/28/16 22:59 72 18 153/67 99 Nasal Cannula 3.0 10/28/16 20:17 71 16 140/63 89 Room Air 10/28/16 20:13 71 10/28/16 19:40 98 Room Air 10/28/16 19:04 36.6 76 18 146/66 98 Room Air Laboratory Results 10/28/16 19:56 Red Blood Count 3.44, Mean Corpuscular Volume 88.7, Mean Corpuscular Hemoglobin 30.8, Mean Corpuscular Hemoglobin Concent 34.8, Mean Platelet Volume 9.8, Neutrophils (%) (Auto) 63.3, Lymphocytes (%) (Auto) 20.7, Monocytes (%) (Auto) 11.7, Eosinophils (%) (Auto) 3.5, Basophils (%) (Auto) 0.6, Neutrophils # (Auto ) 4.10, Lymphocytes # (Auto) 1.34, Monocytes # (Auto) 0.76, Eosinophils # (Auto ) 0.23, Basophils # (Auto) 0.04 10/28/16 19:56 Test 10/28/16 19:56 10/28/16 22:50 White Blood Count 6.48 K/uL (4.8-10.8) Red Blood Count 3.44 M/uL (4.7-6.1) Hemoglobin 10.6 g/dL (14.0-18.0) Hematocrit 30.5 % (42-52) Mean Corpuscular Volume 88.7 fL (80-100) Mean Corpuscular Hemoglobin 30.8 pg (25-34) Mean Corpuscular Hemoglobin Concent 34.8 g/dl (32-36) Platelet Count 169 K/uL (130-400) Mean Platelet Volume 9.8 fL (7.4-10.4) Neutrophils (%) (Auto) 63.3 % Lymphocytes (%) (Auto) 20.7 % Monocytes (%) (Auto) 11.7 % Eosinophils (%) (Auto) 3.5 % Basophils (%) (Auto) 0.6 % Neutrophils # (Auto) 4.10 K/uL (1.4-6.5) Lymphocytes # (Auto) 1.34 K/uL (1.2-3.4) Monocytes # (Auto) 0.76 K/uL (0.11-0.59) Eosinophils # (Auto) 0.23 K/uL (0-0.5) Basophils # (Auto) 0.04 K/uL (0-0.2) RDW Standard Deviation 47.8 fL (36.4-46.3) RDW Coefficient of Variation 14.7 % (11.5-14.5) Immature Granulocyte % (Auto) 0.2 % Immature Granulocyte # (Auto) 0.01 K/uL (0.00-0.02) Anion Gap 6.0 mmol/L (3-11) Est Creatinine Clear Calc Drug Dose 29.5 ml/min Estimated GFR () 31.0 Estimated GFR (Non- 26.7 BUN/Creatinine Ratio 5.4 (10-20) Calcium Level 8.1 mg/dl (8.5-10.1) Total Bilirubin 0.4 mg/dl (0.2-1) Direct Bilirubin < 0.1 mg/dl (0-0.2) Aspartate Amino Transf (AST/SGOT) 112 U/L (15-37) Alanine Aminotransferase (ALT/SGPT) 103 U/L (12-78) Alkaline Phosphatase 204 U/L (45-117) Total Protein 7.0 gm/dl (6.4-8.2) Albumin 2.8 gm/dl (3.4-5.0) Thyroid Stimulating Hormone (TSH) 2.070 uIu/ml (0.300-4.500) Urine Color DK YELLOW Urine Appearance CLOUDY (CLEAR) Urine pH 5.0 (4.5-7.5) Urine Specific [place] 1.027 (1.000-1.030) Urine Protein 4+ (NEG) Urine Glucose (UA) 2+ (NEG) Urine Ketones TRACE (NEG) Urine Occult Blood 2+ (NEG) Urine Nitrite NEG (NEG) Urine Bilirubin NEG (NEG) Urine Urobilinogen NEG (NEG) Urine Leukocyte Esterase NEG (NEG) Urine WBC (Auto) 5-10 /hpf (0-5) Urine RBC (Auto) 0-4 /hpf (0-4) Urine Hyaline Casts (Auto) 1-5 /lpf (0-5) Urine Epithelial Cells (Auto) >30 /lpf (0-5) Urine Bacteria (Auto) NEG (NEG) Medications Administered Medications (Trade) Dose Ordered Sig/Brendan Route Start Time Stop Time Status Last Admin Dose Admin Fentanyl Citrate (Fentanyl Inj) 50 mcg Q15M PRN IV 10/28/16 19:15 11/11/16 19:14 10/28/16 22:59 50 MCG Ondansetron HCl (Zofran Inj) 4 mg NOW STAT IV 10/28/16 19:08 10/28/16 19:10 DC 10/28/16 20:05 4 MG Sodium Chloride 1,000 ml @ 125 mls/hr Q8H STAT IV 10/28/16 19:09 10/29/16 03:08 10/28/16 20:04 125 MLS/HR Departure Information Referrals Elyse Smith M.D. (PCP) Patient Instructions My [facility]
[2016-10-29] MEDS ORDERED: ONDANSETRON INJ 2 MG/ML 2 ML VIAL IV STA (00:51)
[2016-10-29] MEDS ORDERED: D5W AND 1/2NSS 1,000 ML IV STA (00:51)
[2016-10-29] MEDS ORDERED: NSS + 20MEQ KCL 1000ML 1,000 ML IV SCH ×2 (01:15→01:20)
[2016-10-29] MEDS ORDERED: MECLIZINE HCL 25 MG TAB PO PRN (01:15)
[2016-10-29] MEDS ORDERED: GLUCAGON FOR INJ 1 MG VIAL SQ PRN (01:30)
[2016-10-29] MEDS ORDERED: ONDANSETRON INJ 2 MG/ML 2 ML VIAL IV PRN (01:30)
[2016-10-29] MEDS ORDERED: GLUCOSE 10 TABS/TUBE PO PRN (01:30)
[2016-10-29] MEDS ORDERED: DEXTROSE 50% 50 ML SYR IV PRN (01:30)
[2016-10-29] MEDS ORDERED: LEVALBUTEROL/IPRATROPIUM NEB INH PRN (01:30)
[2016-10-29] MEDS ORDERED: GLUCOSE 40% GEL 15 GM TUBE PO PRN (01:30)
[2016-10-29] MEDS ORDERED: DEXAMETHASONE INJ 6 MG in SYRINGE 0 ML IV STA (01:53)
--- NOTE | 2016-10-29 01:54 | EMERGENCY ROOM VISIT NOTE ---
History Report prepared by Ozzy: Viridiana Pindea Under the Supervision of: Dr. Rivera Deal M.D. 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 The patient came to the ED via ambulance. The patient states that he was walking out of the building that he gets dialysis at when he became dizzy. He states that he wanted to sit down so he started walking toward a chair but he lost his balance and fell. The patient' s witnessed the fall and states that he hit the front of his face on the wall, slid down the wall, and then hit his face again on a railing attached to the wall. The patient's states that he did not have his arms out to catch him as he fell. The patient experienced epistaxis and is complaining of nose pain. He is also experiencing neck pain and he rates his discomfort as a 10/10 in severity whenever he flinches or tries to move his neck. The patient states that his bilateral arms are tingly/numb and painful. The pain is worse in his right arm and he states that his finger on his right hand got a sharp feeling in it right after he fell. He describes the sharp feeling as feeling like a splinter or a piece of glass in his finger. He states that the pain in his arms does not feel like he injured them while falling and they are painful secondary to feeling like they are "asleep." Pt denies LOC, headache, visual changes, chest pain, breathing difficulties, nausea, vomiting, abdominal pain, back pain , weakness, or other complaints. The patient also denies any neck pain or arm pain prior to falling. However, he adds that he has a history of MS. Additionally, the patient had a fistula put in yesterday by Dr. Velazquez - Vascular Surgery. The patient adds that he has experienced dizziness after dialysis in the past. 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 A total of ten systems were reviewed and were otherwise negative. Past Medical & Surgical Medical Problems: (1) Abnormal LFTs (liver function tests) (2) BPH (benign prostatic hyperplasia) (3) Concussion and edema of cervical spinal cord, initial encounter (4) Diabetes (5) Hypertension (6) Multiple sclerosis (7) Proteinuria (8) Renal failure (ARF), acute on chronic Surgical Problems: (1) Status post colostomy Family History Hypertension Social History Smoking Status: Never Smoker Drug Use: none Marital Status: Occupation Status: retired Current/Historical Medications Scheduled Aspirin (Aspirin Ec), 81 MG PO HS Dutasteride (Avodart), 0.5 MG PO HS Ergocalciferol (Vitamin D 89545 Unit), 50,000 INTER.UNIT PO MONTHLY Insulin Glargine (Lantus Solostar), 60 UNITS SC QAM Isosorbide Mononitrate Ext Rel (Imdur Ext Rel), 30 MG PO QAM Metoprolol Succinate (Toprol Xl), 200 MG PO QAM Multivitamin (Multivitamin), 1 TAB PO QPM Nifedipine (Nifedipine Er), 90 MG PO QAM Silodosin (Rapaflo), 8 MG PO HS Scheduled PRN Meclizine Hcl (Meclizine Hcl), 25 MG PO UD PRN for Dizziness or Vertigo Oxycodone/Acetaminophen 5MG/325MG (Percocet 5MG/325MG), 1 TABLET PO Q4H PRN for Pain Allergies Coded Allergies: No Known Allergies (Verified , 10/27/16) Physical Exam Vital Signs Date Time Temp Pulse Resp B/P (MAP) Pulse Ox O2 Delivery O2 Flow Rate FiO2 10/29/16 00:39 77 20 151/65 92 Nasal Cannula 2.0 10/29/16 00:00 76 20 150/72 94 Room Air 10/28/16 22:59 72 18 153/67 99 Nasal Cannula 3.0 10/28/16 20:17 71 16 140/63 89 Room Air 10/28/16 20:13 71 10/28/16 19:40 98 Room Air 10/28/16 19:04 36.6 76 18 146/66 98 Room Air Physical Exam GENERAL: Awake, alert, uncomfortable appearing, mild distress HEAD: Normocephalic, atraumatic. No morelos sign. No raccoon eyes. EYES: Normal conjunctiva. PERRL. EARS: External ears normal. Right TM normal. Left TM normal. NOSE: Contusion with a laceration to the bride of the nose. OROPHARYNX: Lips, tongue, and mucosa unremarkable. No erythema or exudate. NECK: Cervical collar in place. No tracheal deviation or JVD. Lower posterior midline tenderness. No step offs noted. CHEST: Dialysis catheter in right upper chest. RESPIRATORY: CTA bilaterally CARDIAC: Regular rate, normal rhythm. ABDOMEN: Inspection reveals no abnormalities. Soft, non distended. No tenderness to palpation. No hernias. Colostomy in place in left lower quadrant. BACK: No midline step offs or tenderness to palpation. Unremarkable. PELVIS: Stable to rock. SKIN: Normal. LYMPH: No adenopathy. MUSCULOSKELETAL: Subjective tingling in both hands. Fistula in left upper extremity. After removing surgical dress fresh bleeding was visualized on the proximal aspect of the surgical incision. Lower extremities are atraumatic. NEURO: GCS 15. Normal sensorium. No sensory or motor deficits noted. Medical Decision & Procedures ER Provider Diagnostic Interpretation: Radiology results as stated below per my review and radiologist interpretation: CHEST ONE VIEW PORTABLE FINDINGS: No pneumothorax. Left basilar linear densities. No pleural effusions. Low lung volumes. The heart is normal in size. Right jugular catheter terminates in the distal SVC. IMPRESSION: Low lung volumes. Left basilar linear densities. This favors atelectasis. Electronically signed by: Kory Jett M.D. 10/28/2016 9:40 PM Dictated Date/Time: 10/28/2016 9:[address] NONCONTRAST Findings: The paranasal sinuses and mastoid air cells are clear. The calvarium and skull base are intact. There is no mass, hematoma, midline shift, acute infarct. White matter hypodensity remains unchanged. The ventricles and sulci demonstrate mild age-related involutional changes. Bilateral basal calcifications. Impression: No acute intracranial abnormality. No change in the white matter hypodensity consistent with the patient's history of multiple sclerosis. Electronically signed by: Kory Jett M.D. 10/28/2016 7:45 PM Dictated Date/Time: 10/28/2016 7:[address] FINDINGS: Probable nondisplaced fracture within the nasal bones. Mild nasal soft tissue swelling and a laceration. The orbital floors, lamina papyracea, mandible, skull base, pterygoid plates, and zygomatic arches are intact. IMPRESSION: Mild nasal soft tissue swelling and a small laceration. Probable nondisplaced nasal bone fractures. Electronically signed by: Kory Jett M.D. 10/28/2016 7:53 PM Dictated Date/Time: 10/28/2016 7:[address] FINDINGS: No fractures. No subluxation. Prevertebral soft tissues and the C1-C2 interval are intact. No pneumothorax. There is a 7 mm groundglass nodule within the left lung apex. Mild disc space narrowing and endplate osteophytes at C5-C6 and C6-C7. IMPRESSION: No fractures within the cervical spine. A 7 mm groundglass nodule within the left lung apex. Please refer to the chart below for recommended follow-up. Please refer to below summary of Fleischner criteria recommendations for follow-up of incidental CT nodules (Triston Garcia, Guidelines for management of small pulmonary nodules detected on CT scans: A statement from the Fleischner Society, Radiology 237: [phone].) SOLID NODULES Solitary nodule size: <6 mm * Low risk patients: no follow-up needed * high risk patients: optional CT at 12 months Solitary nodule size: 6-8 mm * Low risk patients: follow-up at 6-12 months, then consider further follow-up at 18-24 months * high risk patients: initial follow-up CT at 6-12 months and then at 18-24 months if no change Solitary nodule size: >8 mm * either low or high risk patients - consider follow-up CT at 3 months, and/or CT-PET, and/or biopsy Multiple nodules size: <6 mm * Low risk patients: no routine follow-up * high risk patients: optional CT at 12 months Multiple nodules size: 6-8 mm * Low risk patients: follow-up at 3-6 months, then consider further follow-up at 18-24 months * high risk patients: follow-up at 3-6 months, then at 18-24 months if no change Multiple nodules size: >8 mm * Low risk patients: follow-up at 3-6 months, then consider further follow-up at 18-24 months * high risk patients: follow-up at 3-6 months, then at 18-24 months if no change Note: newly detected indeterminate nodule in persons 35 years of age or older. * Low risk patients: minimal or absent history of smoking and/or other known risk factors * high risk patients: history of smoking or of other known risk factors (e.g. first degree relative with lung cancer, or exposure to asbestos, radon, uranium) * if a nodule up to 8 mm is partly solid or is ground glass further follow-up is required after 24 months to exclude possible slow growing adenocarcinoma (JULIAN) SUBSOLID NODULES Solitary pure ground-glass nodule * nodule size <6 mm - no CT follow-up required * nodule size >=6 mm - follow-up CT at 6-12 months, then every 2 years until 5 years Solitary part-solid nodule * nodule size <6 mm - no CT follow-up required * nodule size >=6 mm - follow-up CT at 3-6 months. If unchanged, and solid component remains <6 mm, then annual follow-up for 5 years Multiple subsolid nodules * nodule size <6 mm - follow-up CT at 3-6 months, consider further follow-up at 2 and 4 years if stable * nodule size >=6 mm - follow-up CT at 3-6 months, subsequent management based on the most suspicious nodule(s) Electronically signed by: Kory Jett M.D. 10/28/2016 7:49 PM Dictated Date/Time: 10/28/2016 7:44 PM ORBIT RADIOGRAPHS 3 VIEWS IMPRESSION: No radiopaque foreign bodies identified within the orbits. Electronically signed by: Kory Jett M.D. 10/28/2016 9:38 PM Dictated Date/Time: 10/28/2016 9:38 PM CERVICAL SPINE MRI FINDINGS: Scattered T2 hyperintense foci seen within the cervical spine consistent with the patient's history of demyelinating disease. There is increased T2 hyperintensity within the cord at the C6-C7 level. Mild motion artifact. Trace prevertebral edema. There is suggestion of tear of the anterior longitudinal ligament at the C6-C7 level best seen on sagittal image 8 of 16. There is slight increased T2 signal within the disc space at this level due to the posttraumatic changes. Mild edema within the interspinous locations from C3 through C6. This may also represent mild ligamentous injury. Mild edema within the right paraspinal/scalene muscles. This favors muscular strain. There is focal increased T2 signal within the ligamentum flavum at the C6-C7 level which is also suspicious for a focal tear. The posterior longitudinal ligament appears intact. Mild disc space narrowing at C5-C6, unchanged. The visualized posterior fossa is unremarkable. The C1-C2 interval is maintained. C2-C3: No significant central canal or neural foraminal narrowing. C3-C4: Small broad-based posterior disc osteophyte complex which abuts the left anterior cord and results in mild left neural foraminal narrowing. This remains unchanged. C4-C5: Small broad-based posterior disc osteophyte complex which abuts but does not deform the anterior cord. There is mild right neural foraminal narrowing, unchanged. C5-C6: Broad-based posterior disc ossified complex which abuts and slightly deforms anterior cord. There is severe right and moderate left neural foraminal narrowing, unchanged. C6-C7: Broad-based posterior disc osteophyte complex with a tiny focal central disc protrusion. This abuts and slightly deforms anterior cord. This is a progressed compared the prior study. C7-T1: No significant central canal or neural foraminal narrowing. IMPRESSION: 1. No fracture or subluxation within the cervical spine. 2. There is a focal tear through the anterior longitudinal ligament at the C6-C7 disc space level with increased T2 signal within the anterior C6-C7 disc space consistent with an acute injury. There is also mild edema at the C6-C7 ligamentum flavum consistent with a tear. 3. Scattered foci of T2 hyperintensity within the cervical spinal cord are again noted and is consistent with the patient's history of multiple sclerosis. However, there is progressive T2 hyperintensity within the cord at the C6-C7 level. This is concerning for acute posttraumatic cord edema given the adjacent ligamentous injury. 4. Mild edema within the C3-C6 interspinous locations suggestive of ligamentous injury. 5. Broad-based posterior disc osteophyte complex with a tiny focal central disc protrusion at C6-C7. This has progressed from the prior study and may be due to the acute injury. This slightly deforms anterior cord. Electronically signed by: Kory Jett M.D. 10/28/2016 11:03 PM Dictated Date/Time: 10/28/2016 10:49 PM Laboratory Results 10/28/16 19:56 Red Blood Count 3.44, Mean Corpuscular Volume 88.7, Mean Corpuscular Hemoglobin 30.8, Mean Corpuscular Hemoglobin Concent 34.8, Mean Platelet Volume 9.8, Neutrophils (%) (Auto) 63.3, Lymphocytes (%) (Auto) 20.7, Monocytes (%) (Auto) 11.7, Eosinophils (%) (Auto) 3.5, Basophils (%) (Auto) 0.6, Neutrophils # (Auto ) 4.10, Lymphocytes # (Auto) 1.34, Monocytes # (Auto) 0.76, Eosinophils # (Auto ) 0.23, Basophils # (Auto) 0.04 10/28/16 19:56 Test 10/28/16 19:56 10/28/16 22:50 10/29/16 00:33 White Blood Count 6.48 K/uL (4.8-10.8) Red Blood Count 3.44 M/uL (4.7-6.1) Hemoglobin 10.6 g/dL (14.0-18.0) Hematocrit 30.5 % (42-52) Mean Corpuscular Volume 88.7 fL (80-100) Mean Corpuscular Hemoglobin 30.8 pg (25-34) Mean Corpuscular Hemoglobin Concent 34.8 g/dl (32-36) Platelet Count 169 K/uL (130-400) Mean Platelet Volume 9.8 fL (7.4-10.4) Neutrophils (%) (Auto) 63.3 % Lymphocytes (%) (Auto) 20.7 % Monocytes (%) (Auto) 11.7 % Eosinophils (%) (Auto) 3.5 % Basophils (%) (Auto) 0.6 % Neutrophils # (Auto) 4.10 K/uL (1.4-6.5) Lymphocytes # (Auto) 1.34 K/uL (1.2-3.4) Monocytes # (Auto) 0.76 K/uL (0.11-0.59) Eosinophils # (Auto) 0.23 K/uL (0-0.5) Basophils # (Auto) 0.04 K/uL (0-0.2) RDW Standard Deviation 47.8 fL (36.4-46.3) RDW Coefficient of Variation 14.7 % (11.5-14.5) Immature Granulocyte % (Auto) 0.2 % Immature Granulocyte # (Auto) 0.01 K/uL (0.00-0.02) Anion Gap 6.0 mmol/L (3-11) Est Creatinine Clear Calc Drug Dose 29.5 ml/min Estimated GFR () 31.0 Estimated GFR (Non- 26.7 BUN/Creatinine Ratio 5.4 (10-20) Calcium Level 8.1 mg/dl (8.5-10.1) Total Bilirubin 0.4 mg/dl (0.2-1) Direct Bilirubin < 0.1 mg/dl (0-0.2) Aspartate Amino Transf (AST/SGOT) 112 U/L (15-37) Alanine Aminotransferase (ALT/SGPT) 103 U/L (12-78) Alkaline Phosphatase 204 U/L (45-117) Total Protein 7.0 gm/dl (6.4-8.2) Albumin 2.8 gm/dl (3.4-5.0) Thyroid Stimulating Hormone (TSH) 2.070 uIu/ml (0.300-4.500) Urine Color DK YELLOW Urine Appearance CLOUDY (CLEAR) Urine pH 5.0 (4.5-7.5) Urine Specific [place] 1.027 (1.000-1.030) Urine Protein 4+ (NEG) Urine Glucose (UA) 2+ (NEG) Urine Ketones TRACE (NEG) Urine Occult Blood 2+ (NEG) Urine Nitrite NEG (NEG) Urine Bilirubin NEG (NEG) Urine Urobilinogen NEG (NEG) Urine Leukocyte Esterase NEG (NEG) Urine WBC (Auto) 5-10 /hpf (0-5) Urine RBC (Auto) 0-4 /hpf (0-4) Urine Hyaline Casts (Auto) 1-5 /lpf (0-5) Urine Epithelial Cells (Auto) >30 /lpf (0-5) Urine Bacteria (Auto) NEG (NEG) Bedside Glucose 74 mg/dl (70-99) Laboratory results reviewed by me Medications Administered Medications (Trade) Dose Ordered Sig/Brendan Route Start Time Stop Time Status Last Admin Dose Admin Fentanyl Citrate (Fentanyl Inj) 50 mcg Q15M PRN IV 10/28/16 19:15 11/11/16 19:14 10/28/16 22:59 50 MCG Ondansetron HCl (Zofran Inj) 4 mg NOW STAT IV 10/28/16 19:08 10/28/16 19:10 DC 10/28/16 20:05 4 MG Sodium Chloride 1,000 ml @ 125 mls/hr Q8H STAT IV 10/28/16 19:09 10/29/16 00:53 DC 10/28/16 20:04 125 MLS/HR Dexamethasone Sodium Phosphate (Decadron Inj) 4 mg NOW ONCE IV 10/29/16 00:15 10/29/16 00:17 DC 10/29/16 00:39 4 MG Dextrose/Sodium Chloride 1,000 ml @ 125 mls/hr Q8H STAT IV 10/29/16 00:51 10/29/16 08:50 10/29/16 00:58 125 MLS/HR Ondansetron HCl (Zofran Inj) 4 mg NOW STAT IV 10/29/16 00:51 10/29/16 00:53 DC 10/29/16 00:59 4 MG Procedure Staple Removal and Dermabond Procedure Indication: Need for staple removal prior to MRI 34 surgical richard removed carefully by me and dermabond applied. Dermabond skin adhesive was used to cover the wound. The patient tolerated this well. No dehiscence. ECG Indication: weakness Rate (beats per minute): 73 Rhythm: sinus rhythm Findings: left axis deviation, prolonged QT ED Course 1903: The patient was evaluated in room B11. A complete history and physical exam was performed. 1907: Ordered Zofran Inj 4 mg IV 1908: Ordered Sodium Chloride 1000 ml @ 125 mls/hr IV 1914: Ordered Fentanyl Citrate 50 mcg IV 2006: I reviewed the patient's imaging results with the patient and his . 2007: Discussed the patient's case with Dr. Velazquez - [facility]. He said that the richard could be removed from the fistula surgical site for the patient 's MRI. He recommended using Dermabond to hold the incision together after the richard are removed. 2009: I reassessed the patient and updated him on my conversation with Dr. Velazquez. 2030: I removed the patient's richard at this time. Please refer to the procedure note above for further details. 2355: Discussed the patient's case with Dr. Pichardo - Orthopedic Spine. He recommended admitting the patient to medicine and he will see the patient in the morning. 0005: Van Ramsey PA-C has agreed to repair the patient's laceration on his nose. 0007: Upon reexamination, the patient was resting comfortably. I discussed the test results and treatment plan with him. I also updated him on my conversation with Dr. Pichardo and informed him that Van will being doing the laceration repair. The patient will be evaluated for further management. 0012: Van Ramsey PA-C is doing a laceration repair on the patient at this time. Please refer to his note for further details. 0015: Ordered Lidocaine HCl 20 ml INFIL, Decadron Inj 4 mg IV 0041: Discussed the patient's case with Dr. Ren Starks [facility] The patient will be evaluated for further treatment and disposition. 0051: Ordered Zofran Inj 4 mg IV, Dextrose/Sodium Chloride 1000 ml @ 125 mls/hr IV 0100: Ordered Dexamethasone Sodium Phosphate 6 mg/Syringe 1.5 ml @ 1 mls/min IV Medical Decision Medication Reconciliation: I attest that I have personally reviewed the patient' s current medication list Blood pressure screening: Patient was found to have an elevated blood pressure and was referred to their primary doctor for recheck and further treatment. Prior records/ancillary studies reviewed. Triage Nursing notes reviewed and agree them. Additional history obtained from the family. The patient's history was concerning for syncope. Differential diagnosis: Etiologies such as vasovagal event, spine injury, fracture, dislocation, infection, hypoglycemia, electrolyte abnormalities, cardiac sources, intracerebral event, toxicologic, neurologic, as well as others were entertained. Physical examination: As above. The patient was in a cervical collar. Laceration to the nose. ER treatment provided: IV hydration with normal saline Cervical precautions Surgical staple removal and wound management with Dermabond as above IV fentanyl for pain control IV Zofran IV hydration switched to D5 half normal saline as the patient is NPO Magoffin J collar Laceration repair by Van Ramsey PA-C IV Decadron On reassessment the patient felt better. Diagnostics interpretation by me: ECG: As above The labs revealed an unremarkable CBC except for mild anemia. Potassium mildly low and creatinine consistent with end-stage renal disease. Mild elevation of AST and LFT. Imaging studies: X-rays, CT scan and MRI as above Consultation: Consultation was placed with Dr. Pichardo of orthopedic spine. He recommended IV Decadron 4 mg every 6 hours, Magoffin J collar, pain management, and he will see the patient in the morning. A consultation was placed with the hospitalist, Dr. Ralph Mcclure. The case was discussed and diagnostics were reviewed. The patient was evaluated in the ER for further treatment. Consults Time Called: 2003 Consulting Physician: Dr. Marcus West Returned Call: 2007 Discussed the patient's case with Dr. Marcus West. He said that the richard could be removed from the fistula surgical site for the patient's MRI. He recommended using Dermabond to hold the incision together after the richard are removed. Additional Consults: Time Called: [id number] Consulted Physician: Dr. Pichardo - Orthopedic Spine Returned Call: [phone] Additional Comments: Discussed the patient's case with Dr. Marino Starks [facility]. He recommended admitting the patient to medicine and he will see the patient in the morning. Time Called: 19 Consulted Physician: Dr. Ren STOKES Returned Call: 40 Additional Comments: Discussed the patient's case with Dr. Ren STOKES. The patient will be evaluated for further treatment and disposition. Impression Primary Impression: Injury to ligament of cervical spine Additional Impressions: Nasal bone fracture Nasal laceration Concussion and edema of cervical spinal cord Cervical disc herniation Scribe Attestation The scribe's documentation has been prepared under my direction and personally reviewed by me in its entirety. I confirm that the note above accurately reflects all work, treatment, procedures, and medical decision making performed by me. Departure Information Dispostion Being Evaluated By Hospitalist Elyse Crow M.D. (PCP) Patient Instructions My [facility] Problem Qualifiers Primary Impression: Injury to ligament of cervical spine Encounter type: initial encounter Qualified Codes: S13.4XXA - Sprain of ligaments of cervical spine, initial encounter Additional Impressions: Nasal bone fracture Encounter type: initial encounter Fracture type: open Qualified Codes: S02.2XXB - Fracture of nasal bones, initial encounter for open fracture Nasal laceration Encounter type: initial encounter Qualified Codes: S01.21XA - Laceration without foreign body of nose, initial encounter Concussion and edema of cervical spinal cord Encounter type: initial encounter Qualified Codes: S14.0XXA - Concussion and edema of cervical spinal cord, initial encounter
[2016-10-29 02:30] VITALS: Ht 175.3 cm; Wt 84.2 kg
[2016-10-29] MEDS: MoRPHine SULFATE 4 MG/ML 1 ML CARP\\VIAL IV PRN ×2 (03:00→22:31)
[2016-10-29] MEDS ORDERED: IPRATROPIUM BROMIDE NEB SOLN 0.02% 2.5 ML VIAL INH PRN (03:45)
[2016-10-29] MEDS ORDERED: LEVALBUTEROL 1.25MG/0.5ML NEB INH PRN (03:45)
[2016-10-29 04:00] VITALS: BP 167/70; PULSE 79; TEMP 36.7; O2SAT 95
--- NOTE | 2016-10-29 04:47 | History and Physical ---
History & Physical Date & Time of Service: Oct 29, 2016 at 04:29 Chief Complaint: Concussion And Edema Of Cervical Spinal Cord, Primary Care Physician: Elyse Smith M.D. History of Present Illness Source: patient, spouse The patient is a 66-year-old male with PMH including multiple sclerosis, and end -stage renal disease on hemodialysis, who fell forward while walking with his walker as he was leaving the dialysis unit today, and his who witnessed the fall, report that he hit the front of his face on the wall and slid down the wall and that his face again on a railing attached to wall. He did experience a nose bleed and complains of nose pain, and neck pain. Bilateral upper extremities are numb, tingly and painful with his right arm and hand worse than his left. The patient and his deny loss of consciousness. Past Medical/Surgical History Medical Problems: (1) Abnormal LFTs (liver function tests) Status: Chronic (2) BPH (benign prostatic hyperplasia) Status: Chronic (3) Diabetes Status: Chronic (4) Hypertension Status: Chronic (5) Multiple sclerosis Status: Chronic (6) Proteinuria Status: Resolved (7) Renal failure (ARF), acute on chronic Status: Chronic Surgical Problems: (1) Status post colostomy Status: Chronic Family History Hypertension Social History Smoking Status: Never Smoker Smokeless Tobacco Use: No Alcohol Use: none Drug Use: none Marital Status: Housing status: lives with family Occupational Status: retired Immunizations History of Influenza Vaccine: Yes Influenza Vaccine Date: Feb 08, 2005 History of Tetanus Vaccine?: No History of Pneumococcal: Yes Pneumococcal Date: Jul 10, 2003 History of Hepatitis B Vaccine: Yes Hepatitis Immunization Date: Jul 09, 2004 Multi-Drug Resistant Organisms History of MDRO: No Allergies Coded Allergies: No Known Allergies (Verified , 10/27/16) Home Medications Scheduled Aspirin (Aspirin Ec), 81 MG PO HS Dutasteride (Avodart), 0.5 MG PO HS Ergocalciferol (Vitamin D 35064 Unit), 50,000 INTER.UNIT PO MONTHLY Insulin Glargine (Lantus Solostar), 60 UNITS SC QAM Isosorbide Mononitrate Ext Rel (Imdur Ext Rel), 30 MG PO QAM Metoprolol Succinate (Toprol Xl), 200 MG PO QAM Multivitamin (Multivitamin), 1 TAB PO QPM Nifedipine (Nifedipine Er), 90 MG PO QAM Silodosin (Rapaflo), 8 MG PO HS Scheduled PRN Meclizine Hcl (Meclizine Hcl), 25 MG PO UD PRN for Dizziness or Vertigo Oxycodone/Acetaminophen 5MG/325MG (Percocet 5MG/325MG), 1 TABLET PO Q4H PRN for Pain Review of Systems The patient denies chest pain, palpitations, shortness of breath, cough, lower extremity swelling, sore throat, fevers, chills, sweats, weight change, nausea , vomiting, abdominal pain, pelvic pain, blood in urine or stool, dysuria, urinary frequency or urgency, headache, memory loss. The review of systems is otherwise negative other than for that already noted above, and at least 10 systems have been reviewed. Physical Exam Vital Signs Date Time Temp Pulse Resp B/P (MAP) Pulse Ox O2 Delivery O2 Flow Rate FiO2 10/29/16 04:00 36.7 79 18 167/70 (102) 95 Nasal Cannula 2.0 10/29/16 00:39 77 20 151/65 92 Nasal Cannula 2.0 10/29/16 00:00 76 20 150/72 94 Room Air 10/28/16 22:59 72 18 153/67 99 Nasal Cannula 3.0 10/28/16 20:17 71 16 140/63 89 Room Air 10/28/16 20:13 71 10/28/16 19:40 98 Room Air 10/28/16 19:04 36.6 76 18 146/66 98 Room Air The patient is awake, alert and oriented 3, wearing a hard neck collar, lying in bed and in mild distress. HEENT--PERRL, EOMI, mucous membranes and oropharynx dry. Neck--no JVD or bruits. Heart--normal S1 and S2, no extra beats, no murmurs, rubs or gallops. Lungs--clear bilaterally, but decreased throughout. No respiratory distress, no accessory muscle use. Abdomen--normal bowel sounds and soft, nontender and nondistended, no hernias or masses, no organomegaly. Extremities--no cyanosis, clubbing or edema. There are good distal pulses b/l. Bilateral upper extremities elbows to hands as sensitive to touch, right greater than left Dermatologic--normal skin turgor, normal color, warm and dry, no abnormal lymph nodes, no rash. Neurologic--cranial nerves II through XII grossly intact. Rheumatologic--limited exam due to injury Psychiatric--normal affect. Diagnostics Laboratory Results Results Past 24 Hours Test 10/28/16 19:56 10/28/16 22:50 10/29/16 00:33 Range/Units White Blood Count 6.48 4.8-10.8 K/uL Red Blood Count 3.44 4.7-6.1 M/uL Hemoglobin 10.6 14.0-18.0 g/dL Hematocrit 30.5 42-52 % Mean Corpuscular Volume 88.7 80-100 fL Mean Corpuscular Hemoglobin 30.8 25-34 pg Mean Corpuscular Hemoglobin Concent 34.8 32-36 g/dl Platelet Count 169 130-400 K/uL Mean Platelet Volume 9.8 7.4-10.4 fL Neutrophils (%) (Auto) 63.3 % Lymphocytes (%) (Auto) 20.7 % Monocytes (%) (Auto) 11.7 % Eosinophils (%) (Auto) 3.5 % Basophils (%) (Auto) 0.6 % Neutrophils # (Auto) 4.10 1.4-6.5 K/uL Lymphocytes # (Auto) 1.34 1.2-3.4 K/uL Monocytes # (Auto) 0.76 0.11-0.59 K/uL Eosinophils # (Auto) 0.23 0-0.5 K/uL Basophils # (Auto) 0.04 0-0.2 K/uL RDW Standard Deviation 47.8 36.4-46.3 fL RDW Coefficient of Variation 14.7 11.5-14.5 % Immature Granulocyte % (Auto) 0.2 % Immature Granulocyte # (Auto) 0.01 0.00-0.02 K/uL Sodium Level 140 136-145 mmol/L Potassium Level 3.0 3.5-5.1 mmol/L Chloride Level 100 98-107 mmol/L Carbon Dioxide Level 34 21-32 mmol/L Anion Gap 6.0 3-11 mmol/L Blood Urea Nitrogen 13 7-18 mg/dl Creatinine 2.40 0.60-1.40 mg/dl Est Creatinine Clear Calc Drug Dose 29.5 ml/min Estimated GFR () 31.0 Estimated GFR (Non- 26.7 BUN/Creatinine Ratio 5.4 10-20 Random Glucose 98 70-99 mg/dl Calcium Level 8.1 8.5-10.1 mg/dl Total Bilirubin 0.4 0.2-1 mg/dl Direct Bilirubin < 0.1 0-0.2 mg/dl Aspartate Amino Transf (AST/SGOT) 112 15-37 U/L Alanine Aminotransferase (ALT/SGPT) 103 12-78 U/L Alkaline Phosphatase 204 45-117 U/L Total Protein 7.0 6.4-8.2 gm/dl Albumin 2.8 3.4-5.0 gm/dl Thyroid Stimulating Hormone (TSH) 2.070 0.300-4.500 uIu/ml Urine Color DK YELLOW Urine Appearance CLOUDY CLEAR Urine pH 5.0 4.5-7.5 Urine Specific Ramona 1.027 1.000-1.030 Urine Protein 4+ NEG Urine Glucose (UA) 2+ NEG Urine Ketones TRACE NEG Urine Occult Blood 2+ NEG Urine Nitrite NEG NEG Urine Bilirubin NEG NEG Urine Urobilinogen NEG NEG Urine Leukocyte Esterase NEG NEG Urine WBC (Auto) 5-10 0-5 /hpf Urine RBC (Auto) 0-4 0-4 /hpf Urine Hyaline Casts (Auto) 1-5 0-5 /lpf Urine Epithelial Cells (Auto) >30 0-5 /lpf Urine Bacteria (Auto) NEG NEG Bedside Glucose 74 70-99 mg/dl Diagnostic Radiology Patient Name: TRINI GRANT Unit Number: [id number] Dictated: 10/28/161948 Transcribed: 10/28/161948 [facility] Printed Date/Time: [~ rep prt dt]/[~ rep prt tm] [~ rep ct labl] - [~ rep ct ivnm] [facility] [place] [address] Dictated: 10/28/161948 Transcribed: 10/28/161948 [employer] Printed Date/Time: [~ rep prt dt]/[~ rep prt tm] [~ rep ct labl] - [~ rep ct ivnm] CT DOSE: HISTORY: Facial injury. fall TECHNIQUE: Multiaxial CT images of the maxillofacial region were performed and reformatted in the coronal plane without the use of contrast. COMPARISON: None. FINDINGS: Probable nondisplaced fracture within the nasal bones. Mild nasal soft tissue swelling and a laceration. The orbital floors, lamina papyracea, mandible, skull base, pterygoid plates, and zygomatic arches are intact. IMPRESSION: Mild nasal soft tissue swelling and a small laceration. Probable nondisplaced nasal bone fractures. Electronically signed by: Kory Jett M.D. 10/28/2016 7:53 PM Dictated Date/Time: 10/28/2016 7:49 PM The status of this report is Signed. Draft = Not yet reviewed or approved by Radiologist. Signed = Reviewed and approved by Radiologist. <AttendingPhy></AttendingPhy> <FamilyPhy>Elyse Smith M.D.</FamilyPhy> < PrimaryPhy>Elyse Smith M.D.</PrimaryPhy> <UnitNumber>[id number]</UnitNumber > <VisitNumber>[id number]</VisitNumber> <PatientName>TRINI GRANT</ PatientName> <DateOfBirth>1950</DateOfBirth> <Location>[facility]</Location> < ServiceDate>10/28/16</ServiceDate> <MNE>ESINDI</MNE> <OrderingPhy>Rivera Deal MD</OrderingPhy> <OrderingPhyMNE>f rep ord dr waddell</OrderingPhyMNE> < DictatingPhyMNE>f rep dict dr waddell</DictatingPhyMNE> <CCListMNE>f rep ct nadira</ CCListMNE> <AdmittingPhyMNE>f pt admit dr waddell</AdmittingPhyMNE> <AttendingPhyMNE >f pt attend dr waddell</AttendingPhyMNE> <ConsultingPhyMNE>f pt consult dr waddell</ConsultingPhyMNE> <FamilyPhyMNE>f pt fam dr waddell</FamilyPhyMNE> <OtherPhyMNE>f pt other dr waddell</OtherPhyMNE> < PrimaryPhyMNE>f pt prim care dr waddell</PrimaryPhyMNE> <ReferringPhyMNE>f pt referring dr waddell</ReferringPhyMNE> Patient Name: TRINI GRANT Unit Number: [id number] Dictated: 10/28/161937 Transcribed: 10/28/161937 [facility] Printed Date/Time: [~ rep prt dt]/[~ rep prt tm] [~ rep ct labl] - [~ rep ct ivnm] [facility] Radiology Department [place] [id number] Dictated: 10/28/161937 Transcribed: 10/28/161937 [facility] Printed Date/Time: [~ rep prt dt]/[~ rep prt tm] [~ rep ct labl] - [~ rep ct ivnm] HEAD CT NONCONTRAST CT DOSE: HISTORY: fall TECHNIQUE: Multiaxial CT images of the head were performed without the use of intravenous contrast. Automated exposure control was utilized for this study. Comparison: Brain MRI 06/22/2016. Findings: The paranasal sinuses and mastoid air cells are clear. The calvarium and skull base are intact. There is no mass, hematoma, midline shift, acute infarct. White matter hypodensity remains unchanged. The ventricles and sulci demonstrate mild age-related involutional changes. Bilateral basal calcifications. Impression: No acute intracranial abnormality. No change in the white matter hypodensity consistent with the patient's history of multiple sclerosis. Electronically signed by: Kory Jett M.D. 10/28/2016 7:45 PM Dictated Date/Time: 10/28/2016 7:38 PM The status of this report is Signed. Draft = Not yet reviewed or approved by Radiologist. Signed = Reviewed and approved by Radiologist. <AttendingPhy></AttendingPhy> <FamilyPhy>Elyse Smith M.D.</FamilyPhy> < PrimaryPhy>Elyse Smith M.D.</PrimaryPhy> <UnitNumber>[id number]</UnitNumber > <VisitNumber>[id number]</VisitNumber> <PatientName>TRINI GRANT</ PatientName> <DateOfBirth>1950</DateOfBirth> <Location>[facility]</Location> < ServiceDate>10/28/16</ServiceDate> <MNE>ESINDI</MNE> <OrderingPhy>Rivera Deal MD</OrderingPhy> <OrderingPhyMNE>f rep ord dr waddell</OrderingPhyMNE> < DictatingPhyMNE>f rep dict dr waddell</DictatingPhyMNE> <CCListMNE>f rep ct mne</ CCListMNE> <AdmittingPhyMNE>f pt admit dr waddell</AdmittingPhyMNE> <AttendingPhyMNE >f pt attend dr waddell</AttendingPhyMNE> <ConsultingPhyMNE>f pt consult dr waddell</ConsultingPhyMNE> <FamilyPhyMNE>f pt fam dr waddell</FamilyPhyMNE> <OtherPhyMNE>f pt other dr waddell</OtherPhyMNE> < PrimaryPhyMNE>f pt prim care dr waddell</PrimaryPhyMNE> <ReferringPhyMNE>f pt referring dr waddell</ReferringPhyMNE> Patient Name: TRINI GRANT Unit Number: [id number] Dictated: 10/28/162137 Transcribed: 10/28/162137 [employer] Printed Date/Time: [~ rep prt dt]/[~ rep prt tm] [~ rep ct labl] - [~ rep ct ivnm] [facility] [place] [address] Dictated: 10/28/162137 Transcribed: 10/28/162137 [facility] Printed Date/Time: [~ rep prt dt]/[~ rep prt tm] [~ rep ct labl] - [~ rep ct ivnm] CHEST ONE VIEW PORTABLE HISTORY: EVALUATE ALTERED MENTAL STATUS/WEAKNESS COMPARISON: Chest 07/20/2016. FINDINGS: No pneumothorax. Left basilar linear densities. No pleural effusions. Low lung volumes. The heart is normal in size. Right jugular catheter terminates in the distal SVC. IMPRESSION: Low lung volumes. Left basilar linear densities. This favors atelectasis. Electronically signed by: Kory Jett M.D. 10/28/2016 9:40 PM Dictated Date/Time: 10/28/2016 9:38 PM The status of this report is Signed. Draft = Not yet reviewed or approved by Radiologist. Signed = Reviewed and approved by Radiologist. <AttendingPhy></AttendingPhy> <FamilyPhy>Deng Velazquez M.D.</FamilyPhy> < PrimaryPhy>Elyse Smith M.D.</PrimaryPhy> <UnitNumber>[id number]</UnitNumber > <VisitNumber>[id number]</VisitNumber> <PatientName>GRANTTRINI Stein</ PatientName> <DateOfBirth>1950</DateOfBirth> <Location>[facility]</Location> < ServiceDate>10/28/16</ServiceDate> <MNE>ESINDI</MNE> <OrderingPhy>Rivera Deal MD</OrderingPhy> <OrderingPhyMNE>f rep ord dr waddell</OrderingPhyMNE> < DictatingPhyMNE>f rep dict dr waddell</DictatingPhyMNE> <CCListMNE>f rep ct mne</ CCListMNE> <AdmittingPhyMNE>f pt admit dr waddell</AdmittingPhyMNE> <AttendingPhyMNE >f pt attend dr waddell</AttendingPhyMNE> <ConsultingPhyMNE>f pt consult dr waddell</ConsultingPhyMNE> <FamilyPhyMNE>f pt fam dr waddell</FamilyPhyMNE> <OtherPhyMNE>f pt other dr waddell</OtherPhyMNE> < PrimaryPhyMNE>f pt prim care dr waddell</PrimaryPhyMNE> <ReferringPhyMNE>f pt referring dr waddell</ReferringPhyMNE> Patient Name: TRINI GRANT Unit Number: [id number] Dictated: 10/28/161943 Transcribed: 10/28/161943 [employer] Printed Date/Time: [~ rep prt dt]/[~ rep prt tm] [~ rep ct labl] - [~ rep ct ivnm] [facility] [place] [address] Dictated: 10/28/161943 Transcribed: 10/28/161943 [facility] Printed Date/Time: [~ rep prt dt]/[~ rep prt tm] [~ rep ct labl] - [~ rep ct ivnm] CERVICAL SPINE CT CT DOSE: 1420.36 mGy.cm HISTORY: Neck pain. fall TECHNIQUE: Multiaxial CT images of the cervical spine were performed and reformatted in the sagittal and coronal plane without the use of contrast. COMPARISON: Cervical spine MRI 06/22/2016. FINDINGS: No fractures. No subluxation. Prevertebral soft tissues and the C1-C2 interval are intact. No pneumothorax. There is a 7 mm groundglass nodule within the left lung apex. Mild disc space narrowing and endplate osteophytes at C5-C6 and C6-C7. IMPRESSION: No fractures within the cervical spine. A 7 mm groundglass nodule within the left lung apex. Please refer to the chart below for recommended follow-up. Please refer to below summary of Fleischner criteria recommendations for follow-up of incidental CT nodules (Triston Garcia, Guidelines for management of small pulmonary nodules detected on CT scans: A statement from the Fleischner Society, Radiology 237: [phone].) SOLID NODULES Solitary nodule size: <6 mm * Low risk patients: no follow-up needed * high risk patients: optional CT at 12 months Solitary nodule size: 6-8 mm * Low risk patients: follow-up at 6-12 months, then consider further follow-up at 18-24 months * high risk patients: initial follow-up CT at 6-12 months and then at 18-24 months if no change Solitary nodule size: >8 mm * either low or high risk patients - consider follow-up CT at 3 months, and/or CT-PET, and/or biopsy Multiple nodules size: <6 mm * Low risk patients: no routine follow-up * high risk patients: optional CT at 12 months Multiple nodules size: 6-8 mm * Low risk patients: follow-up at 3-6 months, then consider further follow-up at 18-24 months * high risk patients: follow-up at 3-6 months, then at 18-24 months if no change Multiple nodules size: >8 mm * Low risk patients: follow-up at 3-6 months, then consider further follow-up at 18-24 months * high risk patients: follow-up at 3-6 months, then at 18-24 months if no change Note: newly detected indeterminate nodule in persons 35 years of age or older. * Low risk patients: minimal or absent history of smoking and/or other known risk factors * high risk patients: history of smoking or of other known risk factors (e.g. first degree relative with lung cancer, or exposure to asbestos, radon, uranium) * if a nodule up to 8 mm is partly solid or is ground glass further follow-up is required after 24 months to exclude possible slow growing adenocarcinoma (JULIAN) SUBSOLID NODULES Solitary pure ground-glass nodule * nodule size <6 mm - no CT follow-up required * nodule size >=6 mm - follow-up CT at 6-12 months, then every 2 years until 5 years Solitary part-solid nodule * nodule size <6 mm - no CT follow-up required * nodule size >=6 mm - follow-up CT at 3-6 months. If unchanged, and solid component remains <6 mm, then annual follow-up for 5 years Multiple subsolid nodules * nodule size <6 mm - follow-up CT at 3-6 months, consider further follow-up at 2 and 4 years if stable * nodule size >=6 mm - follow-up CT at 3-6 months, subsequent management based on the most suspicious nodule(s) Electronically signed by: Kory Jett M.D. 10/28/2016 7:49 PM Dictated Date/Time: 10/28/2016 7:44 PM The status of this report is Signed. Draft = Not yet reviewed or approved by Radiologist. Signed = Reviewed and approved by Radiologist. <AttendingPhy></AttendingPhy> <FamilyPhy>Elyse Smith M.D.</FamilyPhy> < PrimaryPhy>Elyse Smith M.D.</PrimaryPhy> <UnitNumber>[id number]</UnitNumber > <VisitNumber>[id number]</VisitNumber> <PatientName>TRINI GRANT</ PatientName> <DateOfBirth>1950</DateOfBirth> <Location>[facility]</Location> < ServiceDate>10/28/16</ServiceDate> <MNE>ESINDI</MNE> <OrderingPhy>Rivera Deal MD</OrderingPhy> <OrderingPhyMNE>f rep ord dr waddell</OrderingPhyMNE> < DictatingPhyMNE>f rep dict dr waddell</DictatingPhyMNE> <CCListMNE>f rep ct mne</ CCListMNE> <AdmittingPhyMNE>f pt admit dr waddell</AdmittingPhyMNE> <AttendingPhyMNE >f pt attend dr waddell</AttendingPhyMNE> <ConsultingPhyMNE>f pt consult dr waddell</ConsultingPhyMNE> <FamilyPhyMNE>f pt fam dr waddell</FamilyPhyMNE> <OtherPhyMNE>f pt other dr waddell</OtherPhyMNE> < PrimaryPhyMNE>f pt prim care dr waddell</PrimaryPhyMNE> <ReferringPhyMNE>f pt referring dr waddell</ReferringPhyMNE> Patient Name: TRINI GRANT Unit Number: [id number] Dictated: 10/28/162248 Transcribed: 10/28/162248 [facility] Printed Date/Time: [~ rep prt dt]/[~ rep prt tm] [~ rep ct labl] - [~ rep ct ivnm] [facility] [place] [address] Dictated: 10/28/162248 Transcribed: 10/28/162248 [facility] Printed Date/Time: [~ rep prt dt]/[~ rep prt tm] [~ rep ct labl] - [~ rep ct ivnm] [~ rep ct add3]] CERVICAL SPINE MRI HISTORY: severe neck and arm pain s/p fall, ?central cord TECHNIQUE: Multiplanar multisequence MRI of the cervical spine was performed without the use of contrast. COMPARISON STUDY: Cervical spine CT 10/28/2016. Cervical spine MRI 06/22/2016. FINDINGS: Scattered T2 hyperintense foci seen within the cervical spine consistent with the patient's history of demyelinating disease. There is increased T2 hyperintensity within the cord at the C6-C7 level. Mild motion artifact. Trace prevertebral edema. There is suggestion of tear of the anterior longitudinal ligament at the C6-C7 level best seen on sagittal image 8 of 16. There is slight increased T2 signal within the disc space at this level due to the posttraumatic changes. Mild edema within the interspinous locations from C3 through C6. This may also represent mild ligamentous injury. Mild edema within the right paraspinal/scalene muscles. This favors muscular strain. There is focal increased T2 signal within the ligamentum flavum at the C6-C7 level which is also suspicious for a focal tear. The posterior longitudinal ligament appears intact. Mild disc space narrowing at C5-C6, unchanged. The visualized posterior fossa is unremarkable. The C1-C2 interval is maintained. C2-C3: No significant central canal or neural foraminal narrowing. C3-C4: Small broad-based posterior disc osteophyte complex which abuts the left anterior cord and results in mild left neural foraminal narrowing. This remains unchanged. C4-C5: Small broad-based posterior disc osteophyte complex which abuts but does not deform the anterior cord. There is mild right neural foraminal narrowing, unchanged. C5-C6: Broad-based posterior disc ossified complex which abuts and slightly deforms anterior cord. There is severe right and moderate left neural foraminal narrowing, unchanged. C6-C7: Broad-based posterior disc osteophyte complex with a tiny focal central disc protrusion. This abuts and slightly deforms anterior cord. This is a progressed compared the prior study. C7-T1: No significant central canal or neural foraminal narrowing. IMPRESSION: 1. No fracture or subluxation within the cervical spine. 2. There is a focal tear through the anterior longitudinal ligament at the C6-C7 disc space level with increased T2 signal within the anterior C6-C7 disc space consistent with an acute injury. There is also mild edema at the C6-C7 ligamentum flavum consistent with a tear. 3. Scattered foci of T2 hyperintensity within the cervical spinal cord are again noted and is consistent with the patient's history of multiple sclerosis. However, there is progressive T2 hyperintensity within the cord at the C6-C7 level. This is concerning for acute posttraumatic cord edema given the adjacent ligamentous injury. 4. Mild edema within the C3-C6 interspinous locations suggestive of ligamentous injury. 5. Broad-based posterior disc osteophyte complex with a tiny focal central disc protrusion at C6-C7. This has progressed from the prior study and may be due to the acute injury. This slightly deforms anterior cord. Electronically signed by: Kory Jett M.D. 10/28/2016 11:03 PM Dictated Date/Time: 10/28/2016 10:49 PM The status of this report is Signed. Draft = Not yet reviewed or approved by Radiologist. Signed = Reviewed and approved by Radiologist. <AttendingPhy></AttendingPhy> <FamilyPhy>Deng Velazquez M.D.</FamilyPhy> < PrimaryPhy>Elyse Smith M.D.</PrimaryPhy> <UnitNumber>[id number]</UnitNumber > <VisitNumber>[id number]</VisitNumber> <PatientName>TRINI GRANT</ PatientName> <DateOfBirth>1950</DateOfBirth> <Location>[facility]</Location> < ServiceDate>10/28/16</ServiceDate> <MNE>ESINDI</MNE> <OrderingPhy>Rivera Deal MD</OrderingPhy> <OrderingPhyMNE>f rep ord dr waddell</OrderingPhyMNE> < DictatingPhyMNE>f rep dict dr waddell</DictatingPhyMNE> <CCListMNE>f rep ct mne</ CCListMNE> <AdmittingPhyMNE>f pt admit dr waddell</AdmittingPhyMNE> <AttendingPhyMNE >f pt attend dr waddell</AttendingPhyMNE> <ConsultingPhyMNE>f pt consult dr waddell</ConsultingPhyMNE> <FamilyPhyMNE>f pt fam dr waddell</FamilyPhyMNE> <OtherPhyMNE>f pt other dr waddell</OtherPhyMNE> < PrimaryPhyMNE>f pt prim care dr waddell</PrimaryPhyMNE> <ReferringPhyMNE>f pt referring dr waddell</ReferringPhyMNE> Patient Name: TRINI GRANT Unit Number: [id number] Dictated: 10/28/162137 Transcribed: 10/28/162137 [facility] Printed Date/Time: [~ rep prt dt]/[~ rep prt tm] [~ rep ct labl] - [~ rep ct ivnm] [facility] [place] [address] Dictated: 10/28/162137 Transcribed: 10/28/162137 [facility] Printed Date/Time: [~ rep prt dt]/[~ rep prt tm] [~ rep ct labl] - [~ rep ct ivnm] [facility] RAD[facility] 3 VIEWS HISTORY: pre-MRI screening. COMPARISON: None. FINDINGS: There are no radiopaque foreign bodies identified within the orbits. IMPRESSION: No radiopaque foreign bodies identified within the orbits. Electronically signed by: Kory Jett M.D. 10/28/2016 9:38 PM Dictated Date/Time: 10/28/2016 9:38 PM The status of this report is Signed. Draft = Not yet reviewed or approved by Radiologist. Signed = Reviewed and approved by Radiologist. <AttendingPhy></AttendingPhy> <FamilyPhy>Deng Velazquez M.D.</FamilyPhy> < PrimaryPhy>Elyse Smith M.D.</PrimaryPhy> <UnitNumber>[id number]</UnitNumber > <VisitNumber>[id number]</VisitNumber> <PatientName>TRINI GRANT Emil</ PatientName> <DateOfBirth>1950</DateOfBirth> <Location>[facility]</Location> < ServiceDate>10/28/16</ServiceDate> <MNE>ESINDI</MNE> <OrderingPhy>Rivera Deal MD</OrderingPhy> <OrderingPhyMNE>f rep ord dr waddell</OrderingPhyMNE> < DictatingPhyMNE>f rep dict dr waddell</DictatingPhyMNE> <CCListMNE>f rep ct leliae</ CCListMNE> <AdmittingPhyMNE>f pt admit dr waddell</AdmittingPhyMNE> <AttendingPhyMNE >f pt attend dr waddell</AttendingPhyMNE> <ConsultingPhyMNE>f pt consult dr waddell</ConsultingPhyMNE> <FamilyPhyMNE>f pt fam dr waddell</FamilyPhyMNE> <OtherPhyMNE>f pt other dr waddell</OtherPhyMNE> < PrimaryPhyMNE>f pt prim care dr waddell</PrimaryPhyMNE> <ReferringPhyMNE>f pt referring dr waddell</ReferringPhyMNE> EKG EKG shows normal sinus rhythm at 73 bpm, first-degree heart block, left axis deviation, prolonged QT, no acute ST-T changes Impression Assessment and Plan C6- 7 cord edema/tear of the anterior longitudinal ligament and ligamentum flavum/C6 7 posterior disc protrusion--the ED consulted with Dr. Pichardo from orthopedic spine surgery, who has agreed to follow patient in hospital. The patient will be given Decadron 10 mg IV now and then 4 mg IV every [address] on morphine 2-4 mg IV every 2 hours when necessary, normal saline with potassium chloride 20 mEq 100 mils per hour, nothing by mouth status except meds. Neuro checks per protocol. Multiple sclerosis--follows with Dr. Finn, and will be consulted. CAD/hypertension for now hold aspirin and nifedipine ER, change metoprolol succinate 200 mg every morning to 100 by mouth twice a day with hold parameters , and continue Imdur 30 mg every morning. Have available hydralazine 10 mg IV every 4 hours when necessary Abnormal liver function tests--has had these in the past, unclear etiology, will follow in the a.m. again, if persistent will consider additional workup at that time. Diabetes mellitus--hold Lantus 60 units subcutaneous every morning, and place on Accu-Cheks before meals and at bedtime with NovoLog coverage per scale. BPH--he is on Avodart 0.5 mg by mouth at bedtime and Rapaflo 8 mg by mouth at bedtime, both of which are nonformulary, and will check for formulary substitutes. Level of Care Telemetry Advanced Directives Existing Advance Directive: No Existing Living Will: No Existing Power of Steam Boiler Fireman: No Resuscitation Status FULL RESUSCITATION VTE Prophylaxis VTE Risk Assessment Done? Y/N: Yes Risk Level: High Given or contraindicated: SCD's
[2016-10-29] MEDS: MoRPHine SULFATE 2 MG/ML CARP IV PRN ×5 (06:27→18:56)
[2016-10-29] MEDS ORDERED: INSULIN ASPART 100 UNITS/ML 3 ML PEN SC SCH ×2 (06:30→12:00)
[2016-10-29] MEDS ORDERED: NURSING VERBAL MED ORDER ONE ×3 (07:45→12:15)
[2016-10-29 07:49] VITALS: BP 161/74; PULSE 87; TEMP 37; O2SAT 98
[2016-10-29] MEDS: DEXAMETHASONE INJ 4 MG in SYRINGE 0 ML IV SCH ×3 (08:11→20:39)
[2016-10-29] MEDS: D5W AND 1/2NSS 1,000 ML IV SCH (08:11)
[2016-10-29] MEDS: ISOSORBIDE MONONITRATE 30 MG TABCR PO SCH (08:11)
[2016-10-29] MEDS: METOPROLOL SUCC 50MG EXT REL TAB PO SCH ×2 (08:12→20:39)
[2016-10-29] MEDS ORDERED: METOPROLOL SUCC 50MG EXT REL TAB PO SCH (09:00)
[2016-10-29] MEDS ORDERED: POTASSIUM CHLORIDE 10 MEQ TABCR PO STA (09:05)
[2016-10-29 09:46] LABS: ESTIMATED AVERAGE GLUCOSE 137 mg/dl; HA1C FLAG Normal (Normal)
[2016-10-29 11:38] VITALS: BP 160/74; PULSE 91; TEMP 37; O2SAT 98
--- NOTE | 2016-10-29 12:30 | Nephrology Consultation ---
Nephrology Consultation Date & Providers Date of Consultation: Oct 29, 2016. Primary Care Provider: Elyse Smith M.D. Referring Provider: Reason for Consultation Evaluation management for end-stage renal disease on hemodialysis. History of Present Illness Phill is a 66-year-old male gentlemen with past medical history significant for end-stage renal disease on hemodialysis, hypertension, history of multiple sclerosis admitted to the hospital after a fall yesterday. Nephrologic consult was requested to manage end-stage renal disease on hemodialysis. Electronic medical records were reviewed in detail during patient's visit. His Saida and son was at bedside during the visit. Phill has end-stage renal disease his on dialysis Wednesday, Wednesday, Wednesday at [facility] dialysis unit via right IJ tunnel dialysis catheter. He has a maturing left forearm AV fistula. Yesterday after dialysis as he was leaving the dialysis unit accompanied by his he had an imbalance and felt face down. He hit his face to the wall and the floor and had nasal bleeding. He denies any dizziness, lightheadedness or loss of consciousness. His dialysis session was smooth and regular without any significant hypotensive episode. After dialysis he was feeling at his baseline. On admission imaging study including MRI showed acute ligament tear in cervical spine. He was evaluated by spine surgeon and may need surgery soon. Currently has a neck collar. Has neck and bilateral upper extremity pain. Currently his blood pressure, volume status and electrolyte acceptable. Potassium was low at 3 and supplemented with 40 milliequivalent potassium chloride orally. Allergies Coded Allergies: No Known Allergies (Verified , 10/27/16) Inpatient Medications Current Inpatient Medications Medications (Trade) Dose Ordered Sig/Brendan Route Start Time Stop Time Status Last Admin Dose Admin Fentanyl Citrate (Fentanyl Inj) 50 mcg Q15M PRN IV 10/28/16 19:15 11/11/16 19:14 10/28/16 22:59 50 MCG Acetaminophen (Tylenol Tab) 650 mg Q4H PRN PO 10/29/16 01:15 11/28/16 01:14 Isosorbide Mononitrate (Imdur Ext Rel Tab) 30 mg QAM PO 10/29/16 09:00 11/28/16 08:59 10/29/16 08:11 30 MG Meclizine HCl (Antivert Tab) 25 mg DAILY PRN PO 10/29/16 01:15 11/28/16 01:14 Ondansetron HCl (Zofran Inj) 4 mg Q6H PRN IV 10/29/16 01:30 11/28/16 01:29 Glucose (Glucose 40% Gel) UD PRN PO 10/29/16 01:30 11/28/16 01:29 Glucose (Glucose Chew Tab) 1 tabs UD PRN PO 10/29/16 01:30 11/28/16 01:29 Dextrose (Dextrose 50% 50ML Syringe) 50 ml UD PRN IV 10/29/16 01:30 11/28/16 01:29 Glucagon (Glucagon Inj) 1 mg UD PRN SQ 10/29/16 01:30 11/28/16 01:29 Morphine Sulfate (MoRPHine SULFATE INJ) 2 mg Q2H PRN IV 10/29/16 01:30 11/12/16 01:29 10/29/16 08:11 2 MG Morphine Sulfate (MoRPHine SULFATE INJ) 4 mg Q2H PRN IV 10/29/16 01:30 11/12/16 01:29 10/29/16 03:00 4 MG Hydralazine HCl (HydrALAZINE INJ) 10 mg Q4H PRN IV. 10/29/16 01:30 11/28/16 01:29 Dexamethasone Sodium Phosphate 4 mg/Syringe 1 ml @ 1 mls/min Q6H IV 10/29/16 08:00 11/28/16 07:59 10/29/16 08:11 1 MLS/MIN Ipratropium [place] (Atrovent 0.02% 0.5MG/2.5ML Neb) 0.5 mg Q2H PRN INH 10/29/16 03:45 11/28/16 03:44 Levalbuterol (Xopenex 1.25MG/ 0.5ML Neb) 1.25 mg Q2H PRN INH 10/29/16 03:45 11/28/16 03:44 Miscellaneous Information (Order Awaiting Action) 1 ea QS N/A 10/29/16 08:00 11/28/16 07:59 Miscellaneous Information (Order Awaiting Action) 1 ea QS N/A 10/29/16 08:00 11/28/16 07:59 Metoprolol Succinate (Toprol Xl Tab) 100 mg BID PO 6/29/17 09:00 11/28/16 08:59 10/29/16 08:12 100 MG Dextrose/Sodium Chloride 1,000 ml @ 50 mls/hr Q20H IV 10/29/16 08:00 11/28/16 07:59 10/29/16 08:11 50 MLS/HR Vitamin B Complex/ Vit C/Folic Acid (Nephrocaps) 1 cap QAM PO 10/30/16 09:00 11/29/16 08:59 Insulin Aspart (novoLOG ASPART) SLIDING SCALE If C... Q6 SC 10/29/16 12:00 11/28/16 11:59 Family History Hypertension Social History Smoking Status: Never Smoker Smokeless Tobacco Use: No Alcohol Use: none Drug Use: none Marital Status: Housing Status: lives with family Occupation: retired Review of Systems A complete review of systems was performed. Pertinent positives are noted above. All other systems are negative. Physical Exam Date Time Temp Pulse Resp B/P (MAP) Pulse Ox O2 Delivery O2 Flow Rate FiO2 10/29/16 09:19 Nasal Cannula 2.0 10/29/16 07:49 37.0 87 16 161/74 (103) 98 Room Air 10/29/16 07:45 Nasal Cannula 2.0 10/29/16 04:00 36.7 79 18 167/70 (102) 95 Nasal Cannula 2.0 10/29/16 02:30 Nasal Cannula 2.0 10/29/16 00:39 77 20 151/65 92 Nasal Cannula 2.0 10/29/16 00:00 76 20 150/72 94 Room Air 10/28/16 22:59 72 18 153/67 99 Nasal Cannula 3.0 10/28/16 20:17 71 16 140/63 89 Room Air 10/28/16 20:13 71 10/28/16 19:40 98 Room Air 10/28/16 19:04 36.6 76 18 146/66 98 Room Air GENERAL: middle aged male, AAA x 3, pleasant, in mild distress. HEENT: Atraumatic, normocephalic. NECK: neck collar in place ENT: No sinus tenderness MOUTH and THROAT: Moist oral mucosa. RESPIRATORY: Normal breathing efforts, no accessory muscle use, clear to auscultation bilaterally, no wheezes or rales. CARDIOVASCULAR: S1, S2 normal, rate rhythm regular. ABDOMEN: Soft, nontender, positive bowel sound. MUSCULOSKELETAL: No joint swelling, erythema or tenderness. Normal range of motion. SKIN: No skin rash EXTREMITY: No lower extremity edema NEURO: No gross focal neurological deficit, speech fluent. PSYCHIATRY: Normal mood and judgment Laboratory Results Last 24 Hours Test 10/28/16 19:56 10/28/16 22:50 10/29/16 00:33 10/29/16 06:02 White Blood Count 6.48 K/uL Red Blood Count 3.44 M/uL Hemoglobin 10.6 g/dL Hematocrit 30.5 % Mean Corpuscular Volume 88.7 fL Mean Corpuscular Hemoglobin 30.8 pg Mean Corpuscular Hemoglobin Concent 34.8 g/dl Platelet Count 169 K/uL Mean Platelet Volume 9.8 fL Neutrophils (%) (Auto) 63.3 % Lymphocytes (%) (Auto) 20.7 % Monocytes (%) (Auto) 11.7 % Eosinophils (%) (Auto) 3.5 % Basophils (%) (Auto) 0.6 % Neutrophils # (Auto) 4.10 K/uL Lymphocytes # (Auto) 1.34 K/uL Monocytes # (Auto) 0.76 K/uL Eosinophils # (Auto) 0.23 K/uL Basophils # (Auto) 0.04 K/uL RDW Standard Deviation 47.8 fL RDW Coefficient of Variation 14.7 % Immature Granulocyte % (Auto) 0.2 % Immature Granulocyte # (Auto) 0.01 K/uL Sodium Level 140 mmol/L Potassium Level 3.0 mmol/L Chloride Level 100 mmol/L Carbon Dioxide Level 34 mmol/L Anion Gap 6.0 mmol/L Blood Urea Nitrogen 13 mg/dl Creatinine 2.40 mg/dl Est Creatinine Clear Calc Drug Dose 29.5 ml/min Estimated GFR () 31.0 Estimated GFR (Non- 26.7 BUN/Creatinine Ratio 5.4 Random Glucose 98 mg/dl Calcium Level 8.1 mg/dl Total Bilirubin 0.4 mg/dl Direct Bilirubin < 0.1 mg/dl Aspartate Amino Transf (AST/SGOT) 112 U/L Alanine Aminotransferase (ALT/SGPT) 103 U/L Alkaline Phosphatase 204 U/L Total Protein 7.0 gm/dl Albumin 2.8 gm/dl Thyroid Stimulating Hormone (TSH) 2.070 uIu/ml Urine Color DK YELLOW Urine Appearance CLOUDY Urine pH 5.0 Urine Specific [place] 1.027 Urine Protein 4+ Urine Glucose (UA) 2+ Urine Ketones TRACE Urine Occult Blood 2+ Urine Nitrite NEG Urine Bilirubin NEG Urine Urobilinogen NEG Urine Leukocyte Esterase NEG Urine WBC (Auto) 5-10 /hpf Urine RBC (Auto) 0-4 /hpf Urine Hyaline Casts (Auto) 1-5 /lpf Urine Epithelial Cells (Auto) >30 /lpf Urine Bacteria (Auto) NEG Bedside Glucose 74 mg/dl 167 mg/dl Test 10/29/16 08:33 Estimated Average Glucose 137 mg/dl Hemoglobin A1c 6.4 % Impression (1) ESRD (end stage renal disease) on dialysis (2) Concussion and edema of cervical spinal cord, initial encounter (3) Nasal bone fracture (4) Hypertension (5) Multiple sclerosis (6) Nasal laceration (7) Injury to ligament of cervical spine 66-year-old gentlemen with end-stage renal disease on hemodialysis and history of multiple sclerosis admit to the hospital after a witnessed fall yesterday causing acute neck injury to cervical spine ligaments and has spinal cord edema. Currently has a neck collar, being evaluated by Spine surgery and possible need for surgical intervention. He is on dialysis Wednesday, Wednesday, Wednesday via right IJ tunnel dialysis catheter, has side med showing left tear radiocephalic AV fistula. Had dialysis yesterday for 4 hours, uneventful. As per patient dialysis session was regular and he was feeling otherwise at his baseline after dialysis. Recommendations --currently his blood pressure, volume status and electrolyte stable, no acute need for dialysis today, and next then dialysis session is tomorrow. Depending on decision regarding surgery we will adjust the dialysis session timing. --okay to give maintenance fluid if patient is NPO however otherwise avoid IV fluid --KCL 40 marlon x 1 dose --continue on phosphate binder and Nephrocaps when patient starts orally Thank you for allowing me to participate in your patient's care. It was a pleasure to see Don This chart was completed utilizing [employer] Speech and voice recognition software. Grammatical errors, random word insertions, pronoun errors and incomplete sentences are occasional consequences of this system. Any questions or concerns about the content, text or information contained within the body of this dictation should be addressed directly to the physician for clarification.
[2016-10-29] MEDS: INSULIN ASPART 100 UNITS/ML 3 ML PEN SC SCH ×3 (13:37→20:47)
[2016-10-29 15:20] VITALS: BP 152/69; PULSE 88; TEMP 36.7; O2SAT 96
--- NOTE | 2016-10-29 15:30 | Neurology Consultation ---
Neurology Consultation Date of Consultation: Oct 29, 2016. Attending Physician: Gaby Ramires M.D. Primary Care Physician: Elyse Smith M.D. Reason for Consultation: cervical spine edema post fall/MS History of Present Illness Source: patient, family, spouse Naveen is a 66-year-old male with PMH MS (no longer on MS modulating drugs) end stage kidney disease on hemodialysis, end stage liver failure who fell in the [place] after his dialysis treatment. He said he felt that he needed to sit down and he headed toward the chair his leg gave out hit the front of his face on the wall and slid down the wall and that his face again on a railing attached to wall. He did experience a nose bleed and complains of nose pain, and neck pain. Bilateral upper extremities are numb, tingly and painful with his right arm and hand worse than his left. His is concerned because he is doing more falling recently. He fell at home and his left knee is swollen and bruised. He does walk with a cane occasionally but she feels he needs a walking and is requesting one be brought to the room. denies CP, SOB, abdominal pain, weakness, vision changes, N, V. Past Medical/Surgical History Medical Problems: (1) Abnormal LFTs (liver function tests) Status: Chronic (2) BPH (benign prostatic hyperplasia) Status: Chronic (3) Cervical disc herniation Status: Acute (4) Concussion and edema of cervical spinal cord Status: Acute (5) Diabetes Status: Chronic (6) Hypertension Status: Chronic (7) Injury to ligament of cervical spine Status: Acute (8) Multiple sclerosis Status: Chronic (9) Nasal bone fracture Status: Acute (10) Nasal laceration Status: Acute (11) Renal failure (ARF), acute on chronic Status: Chronic Surgical Problems: (1) Status post colostomy Status: Chronic Social History Smoking Status: Never smoker Smokeless Tobacco Use: No Alcohol Use: none Drug Use: none Marital Status: Occupation Status: retired Allergies Coded Allergies: No Known Allergies (Verified , 10/27/16) Current Inpatient Medications Current Inpatient Medications Medications (Trade) Dose Ordered Sig/Brendan Route Start Time Stop Time Status Last Admin Dose Admin Fentanyl Citrate (Fentanyl Inj) 50 mcg Q15M PRN IV 10/28/16 19:15 11/11/16 19:14 10/28/16 22:59 50 MCG Acetaminophen (Tylenol Tab) 650 mg Q4H PRN PO 10/29/16 01:15 11/28/16 01:14 Isosorbide Mononitrate (Imdur Ext Rel Tab) 30 mg QAM PO 10/29/16 09:00 11/28/16 08:59 10/29/16 08:11 30 MG Meclizine HCl (Antivert Tab) 25 mg DAILY PRN PO 10/29/16 01:15 11/28/16 01:14 Ondansetron HCl (Zofran Inj) 4 mg Q6H PRN IV 10/29/16 01:30 11/28/16 01:29 10/29/16 13:43 4 MG Glucose (Glucose 40% Gel) UD PRN PO 10/29/16 01:30 11/28/16 01:29 Glucose (Glucose Chew Tab) 1 tabs UD PRN PO 10/29/16 01:30 11/28/16 01:29 Dextrose (Dextrose 50% 50ML Syringe) 50 ml UD PRN IV 10/29/16 01:30 11/28/16 01:29 Glucagon (Glucagon Inj) 1 mg UD PRN SQ 10/29/16 01:30 11/28/16 01:29 Morphine Sulfate (MoRPHine SULFATE INJ) 2 mg Q2H PRN IV 10/29/16 01:30 11/12/16 01:29 10/29/16 11:39 2 MG Morphine Sulfate (MoRPHine SULFATE INJ) 4 mg Q2H PRN IV 10/29/16 01:30 11/12/16 01:29 10/29/16 03:00 4 MG Hydralazine HCl (HydrALAZINE INJ) 10 mg Q4H PRN IV. 10/29/16 01:30 11/28/16 01:29 Dexamethasone Sodium Phosphate 4 mg/Syringe 1 ml @ 1 mls/min Q6H IV 10/29/16 08:00 11/28/16 07:59 10/29/16 13:36 1 MLS/MIN Ipratropium [place] (Atrovent 0.02% 0.5MG/2.5ML Neb) 0.5 mg Q2H PRN INH 10/29/16 03:45 11/28/16 03:44 Levalbuterol (Xopenex 1.25MG/ 0.5ML Neb) 1.25 mg Q2H PRN INH 10/29/16 03:45 11/28/16 03:44 Miscellaneous Information (Order Awaiting Action) 1 ea QS N/A 10/29/16 08:00 11/28/16 07:59 Miscellaneous Information (Order Awaiting Action) 1 ea QS N/A 10/29/16 08:00 11/28/16 07:59 Metoprolol Succinate (Toprol Xl Tab) 100 mg BID PO 10/29/16 09:00 11/28/16 08:59 10/29/16 08:12 100 MG Dextrose/Sodium Chloride 1,000 ml @ 50 mls/hr Q20H IV 10/29/16 08:00 11/28/16 07:59 10/29/16 08:11 50 MLS/HR Vitamin B Complex/ Vit C/Folic Acid (Nephrocaps) 1 cap QAM PO 10/30/16 09:00 11/29/16 08:59 Insulin Aspart (novoLOG ASPART) SLIDING SCALE If C... ACHS SC 10/29/16 12:30 11/28/16 12:29 10/29/16 13:37 3 UNITS Physical Exam Vital Signs (Past 24 Hrs): Date Time Temp Pulse Resp B/P (MAP) Pulse Ox O2 Delivery O2 Flow Rate FiO2 10/29/16 12:00 Nasal Cannula 2.0 10/29/16 11:38 37.0 91 16 160/74 (102) 98 Room Air 10/29/16 09:19 Nasal Cannula 2.0 10/29/16 07:49 37.0 87 16 161/74 (103) 98 Room Air 10/29/16 07:45 Nasal Cannula 2.0 10/29/16 04:00 36.7 79 18 167/70 (102) 95 Nasal Cannula 2.0 10/29/16 02:30 Nasal Cannula 2.0 10/29/16 00:39 77 20 151/65 92 Nasal Cannula 2.0 10/29/16 00:00 76 20 150/72 94 Room Air 10/28/16 22:59 72 18 153/67 99 Nasal Cannula 3.0 10/28/16 20:17 71 16 140/63 89 Room Air 10/28/16 20:13 71 10/28/16 19:40 98 Room Air 10/28/16 19:04 36.6 76 18 146/66 98 Room Air Physical Exam: Constitutional: appearance nourished, pale, [place] J collar in place Ears, Nose, Mouth and Throat: mucous membranes moist, no injection and skin normal, eyes normal Cardiovascular: normal S-1 and S-2 and regular rate and rhythm Respiratory: clear to auscultation (CTA) and no rales, rhonchi or wheeze Musculoskeletal: no peripheral edema and good distal pulses Skin: sutures in right bridge of nose well approximated, left knee abrasion and edema with fluid Eyes: extraocular muscles intact (EOMI) and pupils equal, round and reactive to light (PERRL) NEUROLOGIC EXAMINATION: Mental status: Alert and interactive Oriented to full date and location Oriented to person Speech fluent with no evidence of aphasia Cranial Nerves smile eye brow raise symmetric Reflexes: Deep tendon reflexes were symmetrical and graded 2/5. Plantar responses were flexor. Sensory: light touch vibration, GT proprioception in tact bilaterally Coordination: finger to nose without bi pass, fine reaching tremor Gait/Stance: Posture sitting up in bed Motor: Negative for pronator drift of out stretched arms with eyes closed. Strength: hand muck miner on right 3/5, biceps triceps exam halted with pain, sensation intact cap refill normal warm, left UE biceps triceps hand muck miner 5/5, hip flex plantar flex ext bilaterally 5/5 Laboratory Results Past 24 Hours: 10/28/16 19:56 Red Blood Count 3.44, Mean Corpuscular Volume 88.7, Mean Corpuscular Hemoglobin 30.8, Mean Corpuscular Hemoglobin Concent 34.8, Mean Platelet Volume 9.8, Neutrophils (%) (Auto) 63.3, Lymphocytes (%) (Auto) 20.7, Monocytes (%) (Auto) 11.7, Eosinophils (%) (Auto) 3.5, Basophils (%) (Auto) 0.6, Neutrophils # (Auto ) 4.10, Lymphocytes # (Auto) 1.34, Monocytes # (Auto) 0.76, Eosinophils # (Auto ) 0.23, Basophils # (Auto) 0.04 10/28/16 19:56 Test 10/28/16 19:56 10/28/16 22:50 10/29/16 08:33 10/29/16 11:42 White Blood Count 6.48 K/uL (4.8-10.8) Red Blood Count 3.44 M/uL (4.7-6.1) Hemoglobin 10.6 g/dL (14.0-18.0) Hematocrit 30.5 % (42-52) Mean Corpuscular Volume 88.7 fL (80-100) Mean Corpuscular Hemoglobin 30.8 pg (25-34) Mean Corpuscular Hemoglobin Concent 34.8 g/dl (32-36) Platelet Count 169 K/uL (130-400) Mean Platelet Volume 9.8 fL (7.4-10.4) Neutrophils (%) (Auto) 63.3 % Lymphocytes (%) (Auto) 20.7 % Monocytes (%) (Auto) 11.7 % Eosinophils (%) (Auto) 3.5 % Basophils (%) (Auto) 0.6 % Neutrophils # (Auto) 4.10 K/uL (1.4-6.5) Lymphocytes # (Auto) 1.34 K/uL (1.2-3.4) Monocytes # (Auto) 0.76 K/uL (0.11-0.59) Eosinophils # (Auto) 0.23 K/uL (0-0.5) Basophils # (Auto) 0.04 K/uL (0-0.2) RDW Standard Deviation 47.8 fL (36.4-46.3) RDW Coefficient of Variation 14.7 % (11.5-14.5) Immature Granulocyte % (Auto) 0.2 % Immature Granulocyte # (Auto) 0.01 K/uL (0.00-0.02) Anion Gap 6.0 mmol/L (3-11) Est Creatinine Clear Calc Drug Dose 29.5 ml/min Estimated GFR () 31.0 Estimated GFR (Non- 26.7 BUN/Creatinine Ratio 5.4 (10-20) Calcium Level 8.1 mg/dl (8.5-10.1) Total Bilirubin 0.4 mg/dl (0.2-1) Direct Bilirubin < 0.1 mg/dl (0-0.2) Aspartate Amino Transf (AST/SGOT) 112 U/L (15-37) Alanine Aminotransferase (ALT/SGPT) 103 U/L (12-78) Alkaline Phosphatase 204 U/L (45-117) Total Protein 7.0 gm/dl (6.4-8.2) Albumin 2.8 gm/dl (3.4-5.0) Thyroid Stimulating Hormone (TSH) 2.070 uIu/ml (0.300-4.500) Urine Color DK YELLOW Urine Appearance CLOUDY (CLEAR) Urine pH 5.0 (4.5-7.5) Urine Specific [place] 1.027 (1.000-1.030) Urine Protein 4+ (NEG) Urine Glucose (UA) 2+ (NEG) Urine Ketones TRACE (NEG) Urine Occult Blood 2+ (NEG) Urine Nitrite NEG (NEG) Urine Bilirubin NEG (NEG) Urine Urobilinogen NEG (NEG) Urine Leukocyte Esterase NEG (NEG) Urine WBC (Auto) 5-10 /hpf (0-5) Urine RBC (Auto) 0-4 /hpf (0-4) Urine Hyaline Casts (Auto) 1-5 /lpf (0-5) Urine Epithelial Cells (Auto) >30 /lpf (0-5) Urine Bacteria (Auto) NEG (NEG) Estimated Average Glucose 137 mg/dl Hemoglobin A1c 6.4 % (4.5-5.6) Bedside Glucose 172 mg/dl (70-99) Imaging maxillofacial CT -Mild nasal soft tissue swelling and a small laceration. Probable nondisplaced nasal bone fractures. CT head- No acute intracranial abnormality. No change in the white matter hypodensity consistent with the patient's history of multiple sclerosis. CT c spine- FINDINGS: No fractures. No subluxation. Prevertebral soft tissues and the C1-C2 interval are intact. No pneumothorax. There is a 7 mm groundglass nodule within the left lung apex. Mild disc space narrowing and endplate osteophytes at C5-C6 and C6-C7. MR c spine . No fracture or subluxation within the cervical spine. 2. There is a focal tear through the anterior longitudinal ligament at the C6-C7 disc space level with increased T2 signal within the anterior C6-C7 disc space consistent with an acute injury. There is also mild edema at the C6-C7 ligamentum flavum consistent with a tear. Scattered foci of T2 hyperintensity within the cervical spinal cord are again noted and is consistent with the patient's history of multiple sclerosis. However, there is progressive T2 hyperintensity within the cord at the C6-C7 level. This is concerning for acute posttraumatic cord edema given the adjacent ligamentous injury. Mild edema within the C3-C6 interspinous locations suggestive of ligamentous injury. 5. Broad-based posterior disc osteophyte complex with a tiny focal central disc protrusion at C6-C7. This has progressed from the prior study and may be due to the acute injury. This slightly deforms anterior cord. Impression 66 year old male with progressive MS, renal and liver end stage disease, s/p fall from standing Plan 1. no modulating MS medications can be safely starting in a patient with end stage renal and liver disease 2. burst IV steroids can be use with flare of disease if needed 3. requesting walker recommend a walker with seat so if patient gets tired can sit down on the walker 4. PT/OT evaluation for any other needs at home 5. orthopedics for neck injury treatment and follow up further recommendations to follow I have seen and discussed above patient with Dr Rivera Finn, neurology Discussed With Jose Prado patient and seen today in the room Agree with the above Patient known to me with relapsing progressive ms and complications of diabetes and now esrd on dialysis with elevated lfts of uncertain cause possibly serrano now with recent frequent falls and a more dramatic event yesterday with resultant central cervical cord syndrome and bilateral hand numbness and clumsiness but sparing the external cord and the pyramidal tracts now on decadron and getting better but will need decompression and stabilization per ortho note. [facility] he cannot take any curent disease modifying treatment for his ms other than perhaps a monthly Solumedrol infusion but this will have to wait post op rehab etc We will follow along Rivera Finn MD
--- NOTE | 2016-10-29 16:15 | Medical Consult ---
Consultation Date of Consultation: Oct 29, 2016. Attending Physician: Gaby Ramires M.D. Reason for Consultation: Neck pain and injury History of Present Illness Fall last evening, face forward. Severe extension injury Past Medical/Surgical History Medical Problems: (1) Abnormal LFTs (liver function tests) Status: Chronic (2) BPH (benign prostatic hyperplasia) Status: Chronic (3) Cervical disc herniation Status: Acute (4) Concussion and edema of cervical spinal cord Status: Acute (5) Diabetes Status: Chronic (6) Hypertension Status: Chronic (7) Injury to ligament of cervical spine Status: Acute (8) Multiple sclerosis Status: Chronic (9) Nasal bone fracture Status: Acute (10) Nasal laceration Status: Acute (11) Renal failure (ARF), acute on chronic Status: Chronic Surgical Problems: (1) Status post colostomy Status: Chronic Family History Hypertension N/A Social History Smoking Status: Never Smoker Smokeless Tobacco Use: No Alcohol Use: none Drug Use: none Marital Status: Housing Status: lives with family Occupation Status: retired Allergies Coded Allergies: No Known Allergies (Verified , 10/27/16) Current Inpatient Medications Current Inpatient Medications Medications (Trade) Dose Ordered Sig/Brendan Route Start Time Stop Time Status Last Admin Dose Admin Fentanyl Citrate (Fentanyl Inj) 50 mcg Q15M PRN IV 10/28/16 19:15 11/11/16 19:14 10/28/16 22:59 50 MCG Acetaminophen (Tylenol Tab) 650 mg Q4H PRN PO 10/29/16 01:15 11/28/16 01:14 Isosorbide Mononitrate (Imdur Ext Rel Tab) 30 mg QAM PO 10/29/16 09:00 11/28/16 08:59 10/29/16 08:11 30 MG Meclizine HCl (Antivert Tab) 25 mg DAILY PRN PO 10/29/16 01:15 11/28/16 01:14 Ondansetron HCl (Zofran Inj) 4 mg Q6H PRN IV 10/29/16 01:30 11/28/16 01:29 10/29/16 13:43 4 MG Glucose (Glucose 40% Gel) UD PRN PO 10/29/16 01:30 11/28/16 01:29 Glucose (Glucose Chew Tab) 1 tabs UD PRN PO 10/29/16 01:30 11/28/16 01:29 Dextrose (Dextrose 50% 50ML Syringe) 50 ml UD PRN IV 10/29/16 01:30 11/28/16 01:29 Glucagon (Glucagon Inj) 1 mg UD PRN SQ 10/29/16 01:30 11/28/16 01:29 Morphine Sulfate (MoRPHine SULFATE INJ) 2 mg Q2H PRN IV 10/29/16 01:30 11/12/16 01:29 10/29/16 15:18 2 MG Morphine Sulfate (MoRPHine SULFATE INJ) 4 mg Q2H PRN IV 10/29/16 01:30 11/12/16 01:29 10/29/16 03:00 4 MG Hydralazine HCl (HydrALAZINE INJ) 10 mg Q4H PRN IV. 10/29/16 01:30 11/28/16 01:29 Dexamethasone Sodium Phosphate 4 mg/Syringe 1 ml @ 1 mls/min Q6H IV 10/29/16 08:00 11/28/16 07:59 10/29/16 13:36 1 MLS/MIN Ipratropium [place] (Atrovent 0.02% 0.5MG/2.5ML Neb) 0.5 mg Q2H PRN INH 10/29/16 03:45 11/28/16 03:44 Levalbuterol (Xopenex 1.25MG/ 0.5ML Neb) 1.25 mg Q2H PRN INH 10/29/16 03:45 11/28/16 03:44 Miscellaneous Information (Order Awaiting Action) 1 ea QS N/A 10/29/16 08:00 11/28/16 07:59 Miscellaneous Information (Order Awaiting Action) 1 ea QS N/A 10/29/16 08:00 11/28/16 07:59 Metoprolol Succinate (Toprol Xl Tab) 100 mg BID PO 10/29/16 09:00 11/28/16 08:59 10/29/16 08:12 100 MG Dextrose/Sodium Chloride 1,000 ml @ 50 mls/hr Q20H IV 10/29/16 08:00 11/28/16 07:59 10/29/16 08:11 50 MLS/HR Vitamin B Complex/ Vit C/Folic Acid (Nephrocaps) 1 cap QAM PO 10/30/16 09:00 11/29/16 08:59 Insulin Aspart (novoLOG ASPART) SLIDING SCALE If C... ACHS SC 10/29/16 12:30 11/28/16 12:29 10/29/16 13:37 3 UNITS Review of Systems Constitutional: + weakness, + fatigue ENT: + nasal symptoms Musculoskeletal: + joint pain, + muscle pain, + problem reported Neurologic: + weakness, + numbness/tingling, + balance problems Physical Exam Date Time Temp Pulse Resp B/P (MAP) Pulse Ox O2 Delivery O2 Flow Rate FiO2 10/29/16 15:20 36.7 88 16 152/69 (96) 96 Nasal Cannula 2.0 10/29/16 12:00 Nasal Cannula 2.0 10/29/16 11:38 37.0 91 16 160/74 (102) 98 Room Air 10/29/16 09:19 Nasal Cannula 2.0 10/29/16 07:49 37.0 87 16 161/74 (103) 98 Room Air 10/29/16 07:45 Nasal Cannula 2.0 10/29/16 04:00 36.7 79 18 167/70 (102) 95 Nasal Cannula 2.0 10/29/16 02:30 Nasal Cannula 2.0 10/29/16 00:39 77 20 151/65 92 Nasal Cannula 2.0 10/29/16 00:00 76 20 150/72 94 Room Air 10/28/16 22:59 72 18 153/67 99 Nasal Cannula 3.0 10/28/16 20:17 71 16 140/63 89 Room Air 10/28/16 20:13 71 10/28/16 19:40 98 Room Air 10/28/16 19:04 36.6 76 18 146/66 98 Room Air General Appearance: + moderate distress Head: normocephalic, + evidence of trama Eyes: normal inspection ENT: normal ENT inspection Neck: + pertinent finding (Significant pain , rrigidity , loss of motion) Abdomen/GI: normal bowel sounds Extremities/Musculoskelatal: + pertinent finding (pain , weakness with biceps , triceps function. decreased gauger chief delivery strength) Laboratory Results Last 24 Hours Test 10/28/16 19:56 10/28/16 22:50 10/29/16 00:33 10/29/16 06:02 White Blood Count 6.48 K/uL Red Blood Count 3.44 M/uL Hemoglobin 10.6 g/dL Hematocrit 30.5 % Mean Corpuscular Volume 88.7 fL Mean Corpuscular Hemoglobin 30.8 pg Mean Corpuscular Hemoglobin Concent 34.8 g/dl Platelet Count 169 K/uL Mean Platelet Volume 9.8 fL Neutrophils (%) (Auto) 63.3 % Lymphocytes (%) (Auto) 20.7 % Monocytes (%) (Auto) 11.7 % Eosinophils (%) (Auto) 3.5 % Basophils (%) (Auto) 0.6 % Neutrophils # (Auto) 4.10 K/uL Lymphocytes # (Auto) 1.34 K/uL Monocytes # (Auto) 0.76 K/uL Eosinophils # (Auto) 0.23 K/uL Basophils # (Auto) 0.04 K/uL RDW Standard Deviation 47.8 fL RDW Coefficient of Variation 14.7 % Immature Granulocyte % (Auto) 0.2 % Immature Granulocyte # (Auto) 0.01 K/uL Sodium Level 140 mmol/L Potassium Level 3.0 mmol/L Chloride Level 100 mmol/L Carbon Dioxide Level 34 mmol/L Anion Gap 6.0 mmol/L Blood Urea Nitrogen 13 mg/dl Creatinine 2.40 mg/dl Est Creatinine Clear Calc Drug Dose 29.5 ml/min Estimated GFR () 31.0 Estimated GFR (Non- 26.7 BUN/Creatinine Ratio 5.4 Random Glucose 98 mg/dl Calcium Level 8.1 mg/dl Total Bilirubin 0.4 mg/dl Direct Bilirubin < 0.1 mg/dl Aspartate Amino Transf (AST/SGOT) 112 U/L Alanine Aminotransferase (ALT/SGPT) 103 U/L Alkaline Phosphatase 204 U/L Total Protein 7.0 gm/dl Albumin 2.8 gm/dl Thyroid Stimulating Hormone (TSH) 2.070 uIu/ml Urine Color DK YELLOW Urine Appearance CLOUDY Urine pH 5.0 Urine Specific [place] 1.027 Urine Protein 4+ Urine Glucose (UA) 2+ Urine Ketones TRACE Urine Occult Blood 2+ Urine Nitrite NEG Urine Bilirubin NEG Urine Urobilinogen NEG Urine Leukocyte Esterase NEG Urine WBC (Auto) 5-10 /hpf Urine RBC (Auto) 0-4 /hpf Urine Hyaline Casts (Auto) 1-5 /lpf Urine Epithelial Cells (Auto) >30 /lpf Urine Bacteria (Auto) NEG Bedside Glucose 74 mg/dl 167 mg/dl Test 10/29/16 08:33 10/29/16 11:42 Estimated Average Glucose 137 mg/dl Hemoglobin A1c 6.4 % Bedside Glucose 172 mg/dl Assessment & Plan Images: Unstable C-spine injury with pure ligamentous instability. Plan : Operative intervention tomorrow, approx. 3pm. anterior approach, fusion C5-C7, preceed by decompression of spinal canal. may have dialysis tomorrow. Must be completed by 130 pm. Additional Copies To Rivera Pichardo DO
--- NOTE | 2016-10-29 16:44 | Progress Note ---
Progress Note Date of Service Oct 29, 2016. Progress Note Patient is a 66 year old M who sustained a cervial spine injury with a fall on , when leaving his dialysis clinic. He was anesthetized with MAC sedation for an AV Fistula revision on 10/27 at [facility] without complications. Plan is for C5-C7 ACDF with SSEP and MEP monitoring with Dr Pichardo. PMH is remarkable for ESRD, IDDM, HTN. Of note the patient also has multiple sclerosis for which he can not go on any medication due to his ESRD. He feels that his disease has been progressive over the past months, although it has not effected his breathing. Despite the c-collar, airway exam is reassuring. His muscles do not show evidence of wasting. Dr Pichardo relays that the collar can come off with inline stabilization for intubation. Will plan for GA with neuromonitoring considerations. I did caution the patient that due to his progressive neurologic disease, prolonged mechanical ventilation for a few hours may be necessary if he is not sufficiently strong to wean at the conclusion of the case. Consent was signed. Thank you for the consultation.
--- NOTE | 2016-10-29 16:49 | Family Medicine Progress Note ---
Progress Note Date of Service Oct 29, 2016. Subjective Pt evaluation today including: conversation w/ patient, physical exam, chart review, lab review Pain: neck pain Patient was seen at the bedside. He had the neck collar placed. He complains of neck radiating down to his both arms. Denies any chest pain, SOB, abdominal pain , facial pain, nausea, vomiting. was at the bedside and she described the incident to me. Constitutional: No fever, No weight loss Respiratory: No cough, No wheezing, No shortness of breath Cardiovascular: No chest pain, No edema Abdomen: No pain, No nausea, No vomiting, No diarrhea Musculoskeletal: + problem reported (complains of neck pain) Heme: No abnormal bleeding/bruising Skin: No rash Medications Current Inpatient Medications Medications (Trade) Dose Ordered Sig/Brendan Route Start Time Stop Time Status Last Admin Dose Admin Fentanyl Citrate (Fentanyl Inj) 50 mcg Q15M PRN IV 10/28/16 19:15 11/11/16 19:14 10/28/16 22:59 50 MCG Acetaminophen (Tylenol Tab) 650 mg Q4H PRN PO 10/29/16 01:15 11/28/16 01:14 Isosorbide Mononitrate (Imdur Ext Rel Tab) 30 mg QAM PO 10/29/16 09:00 11/28/16 08:59 10/29/16 08:11 30 MG Meclizine HCl (Antivert Tab) 25 mg DAILY PRN PO 10/29/16 01:15 11/28/16 01:14 Ondansetron HCl (Zofran Inj) 4 mg Q6H PRN IV 10/29/16 01:30 11/28/16 01:29 10/29/16 13:43 4 MG Glucose (Glucose 40% Gel) UD PRN PO 10/29/16 01:30 11/28/16 01:29 Glucose (Glucose Chew Tab) 1 tabs UD PRN PO 10/29/16 01:30 11/28/16 01:29 Dextrose (Dextrose 50% 50ML Syringe) 50 ml UD PRN IV 10/29/16 01:30 11/28/16 01:29 Glucagon (Glucagon Inj) 1 mg UD PRN SQ 10/29/16 01:30 11/28/16 01:29 Morphine Sulfate (MoRPHine SULFATE INJ) 2 mg Q2H PRN IV 10/29/16 01:30 11/12/16 01:29 10/29/16 15:18 2 MG Morphine Sulfate (MoRPHine SULFATE INJ) 4 mg Q2H PRN IV 10/29/16 01:30 11/12/16 01:29 10/29/16 03:00 4 MG Hydralazine HCl (HydrALAZINE INJ) 10 mg Q4H PRN IV. 10/29/16 01:30 11/28/16 01:29 Dexamethasone Sodium Phosphate 4 mg/Syringe 1 ml @ 1 mls/min Q6H IV 10/29/16 08:00 11/28/16 07:59 10/29/16 13:36 1 MLS/MIN Ipratropium [place] (Atrovent 0.02% 0.5MG/2.5ML Neb) 0.5 mg Q2H PRN INH 10/29/16 03:45 11/28/16 03:44 Levalbuterol (Xopenex 1.25MG/ 0.5ML Neb) 1.25 mg Q2H PRN INH 10/29/16 03:45 11/28/16 03:44 Miscellaneous Information (Order Awaiting Action) 1 ea QS N/A 10/29/16 08:00 11/28/16 07:59 Miscellaneous Information (Order Awaiting Action) 1 ea QS N/A 10/29/16 08:00 11/28/16 07:59 Metoprolol Succinate (Toprol Xl Tab) 100 mg BID PO 10/29/16 09:00 11/28/16 08:59 10/29/16 08:12 100 MG Dextrose/Sodium Chloride 1,000 ml @ 50 mls/hr Q20H IV 10/29/16 08:00 11/28/16 07:59 10/29/16 08:11 50 MLS/HR Vitamin B Complex/ Vit C/Folic Acid (Nephrocaps) 1 cap QAM PO 10/30/16 09:00 11/29/16 08:59 Insulin Aspart (novoLOG ASPART) SLIDING SCALE If C... ACHS SC 10/29/16 12:30 11/28/16 12:29 10/29/16 13:37 3 UNITS Objective Vital Signs Date Time Temp Pulse Resp B/P (MAP) Pulse Ox O2 Delivery O2 Flow Rate FiO2 10/29/16 15:20 36.7 88 16 152/69 (96) 96 Nasal Cannula 2.0 10/29/16 12:00 Nasal Cannula 2.0 10/29/16 11:38 37.0 91 16 160/74 (102) 98 Room Air 10/29/16 09:19 Nasal Cannula 2.0 10/29/16 07:49 37.0 87 16 161/74 (103) 98 Room Air 10/29/16 07:45 Nasal Cannula 2.0 10/29/16 04:00 36.7 79 18 167/70 (102) 95 Nasal Cannula 2.0 10/29/16 02:30 Nasal Cannula 2.0 10/29/16 00:39 77 20 151/65 92 Nasal Cannula 2.0 10/29/16 00:00 76 20 150/72 94 Room Air 10/28/16 22:59 72 18 153/67 99 Nasal Cannula 3.0 10/28/16 20:17 71 16 140/63 89 Room Air 10/28/16 20:13 71 10/28/16 19:40 98 Room Air 10/28/16 19:04 36.6 76 18 146/66 98 Room Air Physical Exam General Appearance: WD/WN, + mild distress Neck: + pertinent finding (cervical collar ) Respiratory/Chest: chest non-tender, lungs clear, normal breath sounds, no respiratory distress, no accessory muscle use Cardiovascular: regular rate, rhythm, no edema Abdomen: normal bowel sounds, non tender, soft, + pertinent finding (ostomy bag on the left, no erythema was noted) Extremities: non-tender, no pedal edema Neurologic/Psychiatric: alert, normal mood/affect Skin: normal color, warm/dry, no rash Laboratory Results Results Past 24 Hours Test 10/28/16 19:56 10/28/16 22:50 10/29/16 00:33 10/29/16 06:02 Range/Units White Blood Count 6.48 4.8-10.8 K/uL Red Blood Count 3.44 4.7-6.1 M/uL Hemoglobin 10.6 14.0-18.0 g/dL Hematocrit 30.5 42-52 % Mean Corpuscular Volume 88.7 80-100 fL Mean Corpuscular Hemoglobin 30.8 25-34 pg Mean Corpuscular Hemoglobin Concent 34.8 32-36 g/dl Platelet Count 169 130-400 K/uL Mean Platelet Volume 9.8 7.4-10.4 fL Neutrophils (%) (Auto) 63.3 % Lymphocytes (%) (Auto) 20.7 % Monocytes (%) (Auto) 11.7 % Eosinophils (%) (Auto) 3.5 % Basophils (%) (Auto) 0.6 % Neutrophils # (Auto) 4.10 1.4-6.5 K/uL Lymphocytes # (Auto) 1.34 1.2-3.4 K/uL Monocytes # (Auto) 0.76 0.11-0.59 K/uL Eosinophils # (Auto) 0.23 0-0.5 K/uL Basophils # (Auto) 0.04 0-0.2 K/uL RDW Standard Deviation 47.8 36.4-46.3 fL RDW Coefficient of Variation 14.7 11.5-14.5 % Immature Granulocyte % (Auto) 0.2 % Immature Granulocyte # (Auto) 0.01 0.00-0.02 K/uL Sodium Level 140 136-145 mmol/L Potassium Level 3.0 3.5-5.1 mmol/L Chloride Level 100 98-107 mmol/L Carbon Dioxide Level 34 21-32 mmol/L Anion Gap 6.0 3-11 mmol/L Blood Urea Nitrogen 13 7-18 mg/dl Creatinine 2.40 0.60-1.40 mg/dl Est Creatinine Clear Calc Drug Dose 29.5 ml/min Estimated GFR () 31.0 Estimated GFR (Non- 26.7 BUN/Creatinine Ratio 5.4 10-20 Random Glucose 98 70-99 mg/dl Calcium Level 8.1 8.5-10.1 mg/dl Total Bilirubin 0.4 0.2-1 mg/dl Direct Bilirubin < 0.1 0-0.2 mg/dl Aspartate Amino Transf (AST/SGOT) 112 15-37 U/L Alanine Aminotransferase (ALT/SGPT) 103 12-78 U/L Alkaline Phosphatase 204 45-117 U/L Total Protein 7.0 6.4-8.2 gm/dl Albumin 2.8 3.4-5.0 gm/dl Thyroid Stimulating Hormone (TSH) 2.070 0.300-4.500 uIu/ml Urine Color DK YELLOW Urine Appearance CLOUDY CLEAR Urine pH 5.0 4.5-7.5 Urine Specific [place] 1.027 1.000-1.030 Urine Protein 4+ NEG Urine Glucose (UA) 2+ NEG Urine Ketones TRACE NEG Urine Occult Blood 2+ NEG Urine Nitrite NEG NEG Urine Bilirubin NEG NEG Urine Urobilinogen NEG NEG Urine Leukocyte Esterase NEG NEG Urine WBC (Auto) 5-10 0-5 /hpf Urine RBC (Auto) 0-4 0-4 /hpf Urine Hyaline Casts (Auto) 1-5 0-5 /lpf Urine Epithelial Cells (Auto) >30 0-5 /lpf Urine Bacteria (Auto) NEG NEG Bedside Glucose 74 167 70-99 mg/dl Test 10/29/16 08:33 10/29/16 11:42 Range/Units Estimated Average Glucose 137 mg/dl Hemoglobin A1c 6.4 4.5-5.6 % Bedside Glucose 172 70-99 mg/dl Assessment and Plan This is a 66 y/o male with PMHx of MS, end stage renal disease, HTN, DM, Chronic elevated LFTs and BPH presented to the hospital after a fall, witnessed by his . MRI of the spine showed tear through the anterior longitudinal ligament at the C6-C7 disc space level and edema at the ligamentum flavum. Maxillofacial CT showed mild nasal soft tissue swelling and a small laceration, probable nondisplaced nasal bone fractures. Head CT was normal. * Acute cervical spine injury after fall - CT showed no fractures, no subluxation. Prevertebral soft tissues and the C1-C2 interval are intact. No pneumothorax. There is a 7 mm groundglass nodule within the left lung apex. Mild disc space narrowing and endplate osteophytes at C5-C6 and C6-C7. - MRI showed focal tear through the anterior longitudinal ligament at the C6- C7 disc space level with increased T2 signal within the anterior C6-C7 disc space consistent with an acute injury. There is also mild edema at the C6-C7 ligamentum flavum consistent with a tear. - Orthopedic spine surgeon Dr. Pichardo was consulted and surgery is schedule for tomorrow. - c/w Decadron 4mg q6h - Morphine for pain prn - C/w D5w +1/2NSS 50ml/hr - NPO after midnight * Multiple sclerosis - CT of head normal, no new changes - Neurology was consulted. Input appreciated. Recommended burst IV steroid with flare of disease. No modulating MS medication can be safely started given the ESRD *End-stage renal disease on hemodialysis - On dialysis M,W,F via right IJ tunnel dialysis catheter. Patient has dialysis yesterday and went well. - Cr is 2.4 - Nephrology was consulted and Dr. Matute recommended c/w with maintenance fluid if patient is NPO otherwise avoid IVF and continue on phosphate binder and Nephrocaps when patient starts orally. * HTN - C/w metoprolol 100mg BID - C/w Imdur 30mg - Hydralazine 10mg IV q4h prn * Chronic abnormal liver function tests - Patient follows his PCP for the abnormal LFTs. GGT was normal according to the PCP note. - AST 112, ALT 103, Alkaline phos 204 - This is can be addressed as outpatient by the PCP * DMII - Patient is currently on sliding scale with Novolog. - C/w to hold Lantus * DVT prophylaxis - SCDs * Code Status - Full code Reviewed: Pt Seen/Exam by Me History uncomfortable in bed. Constitutional: denies: fever Respiratory: negative: short of breath Cardiovascular: denies chest pain Gastrointestinal/Abdominal: negative: abdominal pain General Appearance: moderate distress (from hard neck collar and pain) Respiratory: lungs clear, no respiratory distress Cardiovascular: regular rate, rhythm Neurologic/Psychiatric: alert, oriented x 3, other (right UE weakness) Skin Characteristics: warm/dry Assessment/Plan Resident Physician Supervision Note: I was present with Dr. Hernandez in bedside. I verified the nelson history and physical , reviewed labs and image studies, discussed the case with the resident and agree with the findings and care plan.
[2016-10-29 19:57] VITALS: BP 164/77; PULSE 88; TEMP 37; O2SAT 96
[2016-10-29] MEDS ORDERED: NON-FORMULARY MEDICATION (Dutasteride (Avodart) 0.5 MG) PO SCH (21:00)
[2016-10-29] MEDS ORDERED: NON-FORMULARY MEDICATION (Silodosin (Rapaflo) 8 MG) PO SCH (21:00)
[2016-10-29 23:19] VITALS: BP 179/79; PULSE 87; TEMP 36.8; O2SAT 94
[2016-10-30] VITALS (28 sets, daily range): BP systolic 133–190; BP diastolic 62–82; PULSE 66–84; TEMP 36.2–36.9; O2SAT 92–100
[2016-10-30] MEDS: DEXAMETHASONE INJ 4 MG in SYRINGE 0 ML IV SCH ×3 (02:06→14:41)
[2016-10-30] MEDS: D5W AND 1/2NSS 1,000 ML IV SCH (02:07)
[2016-10-30] MEDS: HydrALAZINE HCL 20 MG/ML VIAL IV. PRN (04:23)
[2016-10-30 05:38] LABS: COMPLETE YES; HEMATOCRIT 31.1 % (42-52); IG% 0.4 %; LYMPH % 7.4 %; LYMPH ABS # 0.71 K/uL (1.2-3.4); MEAN CELL VOLUME 90.1 fL (80-100); MEAN CORPUSCULAR HEMOGLOBIN 30.7 pg (25-34); MEAN CORPUSCULAR HGB CONC 34.1 g/dl (32-36); MEAN PLATELET VOLUME 10.3 fL (7.4-10.4); MONO % 4.6 %; NEUT % 87.6 %; PLATELET COUNT 173 K/uL (130-400); RED BLOOD COUNT 3.45 M/uL (4.7-6.1); WHITE BLOOD COUNT 9.58 K/uL (4.8-10.8)
[2016-10-30 05:45] LABS: PROTHROMBIN TIME (PATIENT) 10.7 SECONDS (9.0-12.0)
[2016-10-30] MEDS: INSULIN ASPART 100 UNITS/ML 3 ML PEN SC SCH ×4 (05:45→21:12)
[2016-10-30] MEDS: MoRPHine SULFATE 4 MG/ML 1 ML CARP\\VIAL IV PRN (06:17)
[2016-10-30 06:46] LABS: BUN/CREATININE RATIO 6.1 (10-20); CALCIUM 9.6 mg/dl (8.5-10.1); CREATININE 5.1 mg/dl (0.60-1.40); MAGNESIUM 2.3 mg/dl (1.8-2.4); PHOSPHORUS 4.1 mg/dl (2.5-4.9); POTASSIUM 4.5 mmol/L (3.5-5.1)
[2016-10-30] MEDS: NEPHROCAPS PO SCH (11:03)
[2016-10-30] MEDS: METOPROLOL SUCC 50MG EXT REL TAB PO SCH ×2 (11:04→21:00)
[2016-10-30] MEDS: ISOSORBIDE MONONITRATE 30 MG TABCR PO SCH (11:04)
--- NOTE | 2016-10-30 11:07 | Dialysis Progress Note ---
Hemodialysis Note Date of Service Oct 30, 2016. Chief Complaint Follow-up for end-stage renal disease on hemodialysis. Subjective Don was seen and examined during dialysis treatment this morning. He has been tolerating dialysis well, blood pressure stable, electrolyte and volume status acceptable. Denies any leg cramp, shortness of breath or chest pain. He still has a neck collar. Neck and arm pain seems to have improved slightly, scheduled for surgery this afternoon. Review of Systems A complete review of systems was performed. Pertinent positives are noted above. All other systems are negative. Vital Signs Last 8 Hrs Date Time Temp Pulse Resp B/P (MAP) Pulse Ox O2 Delivery O2 Flow Rate FiO2 10/30/16 10:58 36.6 73 18 165/78 (107) 96 Room Air 10/30/16 10:33 36.2 78 158/69 (98) 10/30/16 10:15 66 133/68 10/30/16 10:00 68 140/71 10/30/16 09:45 73 155/68 10/30/16 09:30 70 140/72 10/30/16 09:15 68 143/70 10/30/16 09:00 74 140/68 10/30/16 08:45 76 137/72 10/30/16 08:30 73 144/69 10/30/16 08:15 70 150/74 10/30/16 08:00 71 139/62 10/30/16 07:50 Room Air 10/30/16 07:45 73 152/74 10/30/16 07:30 70 153/70 10/30/16 07:15 77 144/69 10/30/16 07:00 80 151/71 10/30/16 06:45 74 148/69 10/30/16 06:30 76 158/78 10/30/16 06:15 76 162/66 10/30/16 06:00 36.4 78 172/68 (102) 10/30/16 04:00 36.9 82 18 190/78 (115) 93 Nasal Cannula 6.0 10/30/16 04:00 92 Nasal Cannula 2.0 I & O 24-Hour Column 10/31/16 08:00 Output Total 2100 ml Balance -2100 ml Last Recorded Weight Weight (Kilograms): 87.100 Physical Exam GENERAL: Middle aged male, AAA x 3, pleasant, healthy-appearing, not in any distress. NECK: Neck collar in place RESPIRATORY: Normal breathing efforts, no accessory muscle use, clear to auscultation bilaterally, no wheezes or rales. CARDIOVASCULAR: S1, S2 normal, rate rhythm regular. EXTREMITY: No lower extremity edema NEURO: speech fluent. PSYCHIATRY: Normal mood and judgment Social History Smoking Status: Never smoker Smokeless Tobacco Use: No Alcohol Use: none Drug Use: none Marital Status: Housing Status: lives with family Occupation: retired Laboratory Results Past 24 Hours 10/30/16 05:20 Red Blood Count 3.45, Mean Corpuscular Volume 90.1, Mean Corpuscular Hemoglobin 30.7, Mean Corpuscular Hemoglobin Concent 34.1, Mean Platelet Volume 10.3, Neutrophils (%) (Auto) 87.6, Lymphocytes (%) (Auto) 7.4, Monocytes (%) (Auto) 4.6, Eosinophils (%) (Auto) 0.0, Basophils (%) (Auto) 0.0, Neutrophils # (Auto) 8.39, Lymphocytes # (Auto) 0.71, Monocytes # (Auto) 0.44, Eosinophils # (Auto) 0.00, Basophils # (Auto) 0.00 10/30/16 05:20 Test 10/29/16 11:42 10/29/16 16:42 10/29/16 20:30 10/30/16 05:20 Bedside Glucose 172 mg/dl (70-99) 186 mg/dl (70-99) 203 mg/dl (70-99) White Blood Count 9.58 K/uL (4.8-10.8) Red Blood Count 3.45 M/uL (4.7-6.1) Hemoglobin 10.6 g/dL (14.0-18.0) Hematocrit 31.1 % (42-52) Mean Corpuscular Volume 90.1 fL (80-100) Mean Corpuscular Hemoglobin 30.7 pg (25-34) Mean Corpuscular Hemoglobin Concent 34.1 g/dl (32-36) Platelet Count 173 K/uL (130-400) Mean Platelet Volume 10.3 fL (7.4-10.4) Neutrophils (%) (Auto) 87.6 % Lymphocytes (%) (Auto) 7.4 % Monocytes (%) (Auto) 4.6 % Eosinophils (%) (Auto) 0.0 % Basophils (%) (Auto) 0.0 % Neutrophils # (Auto) 8.39 K/uL (1.4-6.5) Lymphocytes # (Auto) 0.71 K/uL (1.2-3.4) Monocytes # (Auto) 0.44 K/uL (0.11-0.59) Eosinophils # (Auto) 0.00 K/uL (0-0.5) Basophils # (Auto) 0.00 K/uL (0-0.2) RDW Standard Deviation 48.5 fL (36.4-46.3) RDW Coefficient of Variation 14.7 % (11.5-14.5) Immature Granulocyte % (Auto) 0.4 % Immature Granulocyte # (Auto) 0.04 K/uL (0.00-0.02) Prothrombin Time 10.7 SECONDS (9.0-12.0) Prothromb Time International Ratio 1.0 (0.9-1.1) Activated Partial Thromboplast Time 27.0 SECONDS (21.0-31.0) Partial Thromboplastin Ratio 1.0 Anion Gap 7.0 mmol/L (3-11) Est Creatinine Clear Calc Drug Dose 15.2 ml/min Estimated GFR () 12.4 Estimated GFR (Non- 10.7 BUN/Creatinine Ratio 6.1 (10-20) Calcium Level 9.6 mg/dl (8.5-10.1) Phosphorus Level 4.1 mg/dl (2.5-4.9) Magnesium Level 2.3 mg/dl (1.8-2.4) Total Bilirubin 0.5 mg/dl (0.2-1) Direct Bilirubin 0.2 mg/dl (0-0.2) Aspartate Amino Transf (AST/SGOT) 224 U/L (15-37) Alanine Aminotransferase (ALT/SGPT) 203 U/L (12-78) Alkaline Phosphatase 287 U/L (45-117) Total Protein 6.9 gm/dl (6.4-8.2) Albumin 2.7 gm/dl (3.4-5.0) Test 10/30/16 05:38 Bedside Glucose 209 mg/dl (70-99) Allergies Coded Allergies: No Known Allergies (Verified , 10/27/16) Medications Current Inpatient Medications Medications (Trade) Dose Ordered Sig/Brendan Route Start Time Stop Time Status Last Admin Dose Admin Acetaminophen (Tylenol Tab) 650 mg Q4H PRN PO 10/29/16 01:15 11/28/16 01:14 Isosorbide Mononitrate (Imdur Ext Rel Tab) 30 mg QAM PO 10/29/16 09:00 11/28/16 08:59 10/29/16 08:11 30 MG Meclizine HCl (Antivert Tab) 25 mg DAILY PRN PO 10/29/16 01:15 11/28/16 01:14 Ondansetron HCl (Zofran Inj) 4 mg Q6H PRN IV 10/29/16 01:30 11/28/16 01:29 10/29/16 13:43 4 MG Glucose (Glucose 40% Gel) UD PRN PO 10/29/16 01:30 11/28/16 01:29 Glucose (Glucose Chew Tab) 1 tabs UD PRN PO 10/29/16 01:30 11/28/16 01:29 Dextrose (Dextrose 50% 50ML Syringe) 50 ml UD PRN IV 10/29/16 01:30 11/28/16 01:29 Glucagon (Glucagon Inj) 1 mg UD PRN SQ 10/29/16 01:30 11/28/16 01:29 Morphine Sulfate (MoRPHine SULFATE INJ) 2 mg Q2H PRN IV 10/29/16 01:30 11/12/16 01:29 10/29/16 18:56 2 MG Morphine Sulfate (MoRPHine SULFATE INJ) 4 mg Q2H PRN IV 10/29/16 01:30 11/12/16 01:29 10/30/16 06:17 4 MG Hydralazine HCl (HydrALAZINE INJ) 10 mg Q4H PRN IV. 10/29/16 01:30 11/28/16 01:29 10/30/16 04:23 10 MG Dexamethasone Sodium Phosphate 4 mg/Syringe 1 ml @ 1 mls/min Q6H IV 10/29/16 08:00 11/28/16 07:59 10/30/16 02:06 1 MLS/MIN Ipratropium Felch (Atrovent 0.02% 0.5MG/2.5ML Neb) 0.5 mg Q2H PRN INH 10/29/16 03:45 11/28/16 03:44 Levalbuterol (Xopenex 1.25MG/ 0.5ML Neb) 1.25 mg Q2H PRN INH 10/29/16 03:45 11/28/16 03:44 Miscellaneous Information (Order Awaiting Action) 1 ea QS N/A 10/29/16 08:00 11/28/16 07:59 Miscellaneous Information (Order Awaiting Action) 1 ea QS N/A 10/29/16 08:00 11/28/16 07:59 Metoprolol Succinate (Toprol Xl Tab) 100 mg BID PO 10/29/16 09:00 11/28/16 08:59 10/29/16 20:39 100 MG Dextrose/Sodium Chloride 1,000 ml @ 50 mls/hr Q20H IV 10/29/16 08:00 11/28/16 07:59 10/30/16 02:07 50 MLS/HR Vitamin B Complex/ Vit C/Folic Acid (Nephrocaps) 1 cap QAM PO 10/30/16 09:00 11/29/16 08:59 Insulin Aspart (novoLOG ASPART) SLIDING SCALE If C... ACHS SC 10/29/16 12:30 11/28/16 12:29 10/30/16 05:45 2 UNITS Silodosin (Rapaflo Cap) 8 mg HS PO 10/30/16 21:00 11/29/16 20:59 Impression (1) ESRD (end stage renal disease) on dialysis (2) Concussion and edema of cervical spinal cord, initial encounter (3) Nasal bone fracture (4) Hypertension (5) Multiple sclerosis (6) Nasal laceration (7) Injury to ligament of cervical spine 66-year-old gentlemen with end-stage renal disease on hemodialysis and history of multiple sclerosis admit to the hospital after a witnessed fall yesterday causing acute neck injury to cervical spine ligaments and has spinal cord edema. Currently has a neck collar, being evaluated by Spine surgery and possible need for surgical intervention. He is on dialysis Wednesday, Wednesday, Wednesday via right IJ tunnel dialysis catheter, has side med showing left tear radiocephalic AV fistula. Had dialysis yesterday for 4 hours, uneventful. As per patient dialysis session was regular and he was feeling otherwise at his baseline after dialysis. Recommendations --currently getting dialysis as his regular schedule, tolerating well. --okay to give maintenance fluid if patient is NPO however otherwise avoid IV fluid --schedule for neck surgery this afternoon --Hemoglobin stable no need for SANDRA at this time. Will follow
[2016-10-30] MEDS ORDERED: PHARMACY GLYCEMIC MGMT CONSULT PRN (13:00)
--- NOTE | 2016-10-30 13:06 | Pharmacy Progress Note ---
Glycemic Control Intl Consult Date of Service Oct 30, 2016. Scope Glycemic Pharmacist consulted by Dr Ramires on 10/30/16 for glycemic control and to write orders per [facility] inpatient glycemic control protocol Objective Weight (Kilograms): 87.100 Accuchecks BSG (last 24hrs): Test 10/29/16 16:42 10/29/16 20:30 10/30/16 05:20 10/30/16 05:38 Bedside Glucose 186 mg/dl (70-99) 203 mg/dl (70-99) 209 mg/dl (70-99) Random Glucose 221 mg/dl (70-99) Test 10/30/16 11:30 Bedside Glucose 162 mg/dl (70-99) Laboratory Data (last 24hrs) Test 10/30/16 05:20 Anion Gap 7.0 mmol/L BUN/Creatinine Ratio 6.1 Blood Urea Nitrogen 31 mg/dl Creatinine 5.10 mg/dl Potassium Level 4.5 mmol/L Sodium Level 137 mmol/L White Blood Count 9.58 K/uL Red Blood Count 3.45 M/uL Hemoglobin 10.6 g/dL Hematocrit 31.1 % Mean Corpuscular Volume 90.1 fL Mean Corpuscular Hemoglobin 30.7 pg Mean Corpuscular Hemoglobin Concent 34.1 g/dl Platelet Count 173 K/uL Mean Platelet Volume 10.3 fL Neutrophils (%) (Auto) 87.6 % Lymphocytes (%) (Auto) 7.4 % Monocytes (%) (Auto) 4.6 % Eosinophils (%) (Auto) 0.0 % Basophils (%) (Auto) 0.0 % Neutrophils # (Auto) 8.39 K/uL Lymphocytes # (Auto) 0.71 K/uL Monocytes # (Auto) 0.44 K/uL Eosinophils # (Auto) 0.00 K/uL Basophils # (Auto) 0.00 K/uL HbA1c Test 10/29/16 08:33 Hemoglobin A1c 6.4 % (4.5-5.6) H Recent Pertinent Medications Outpatient Anti-diabetic Regimen: * Lantus 60 units daily * Patient's A1c = 6.4% 10/29/16 * However, this result is likely somewhat unreliable in ESRD patients d/t interactions between the A1c analyzing technique and high levels of urea in ESRD , reduced RBC life span, iron deficiency anemia, and EPO administration. HbA1c > 7.5% in ESRD patient may overestimate the extent of hyperglycemia in ESRD patients. The patient is currently receiving: * Basal insulin: None - on hold * Correctional Insulin: Novolog Correction per scale ACHS Goal Range: Low 100 mg/dL - High 150 mg/dL Correction Factor: 30 mg/dL/unit * Prandial insulin: Per carb ratio of 1 unit per 10 grams CHO consumed Risk Factors for Insulin Resistance: * Steroids: Decadron 4 mg IV q6h * IVF: D51/2NS @ 50 cc/hr * Recent Surgery: for C-spine surgery this afternoon * Diet: NPO Assessment & Plan ASSESSMENT: * 66 y/o male with type 2 diabetes, managed with basal insulin only as an outpatient. Pertinent PMH includes ESRD on dialysis. * Basal insulin was held on admission and he is currently being managed with correctional and prandial insulin only, while on ATC Decadron * He received 11 units of insulin yesterday with elevated fasting BSG today, indicating that basal needs to be resumed * My only concern is that the most recent BSG was down to 162 - although did have dialysis today * Based on his last admission, he had stable BSGs on ~60 units of insulin/day and this was not on steroids, so I would expect him to need more than this once po intake resumes * Will plan to resume basal with dinner tonight (currently going to the OR for C -spine surgery) and dose it based upon the BSG as I'm not sure what his needs will be - will utilize insulin calculator estimates with stress level of 2 & 3 b /c of the Decadron PLAN FOR INPATIENT GLYCEMIC CONTROL: * Resume Lantus per "sliding scale" - start around dinner (although will depend on when pt out of surgery) * Hold if BSG less than 150 * 15 units if BSG 151-180 * 22 units if BSG > 180 * Continue Novolog ACHS or q6h if NPO (add overnight accucheck at 0200) * Tighten correction factor slightly to 25 mg/dl/unit * Continue carb ratio of 1 unit per 10 grams CHO consumed * Continue goal range of Low 100 mg/dL - High 150 mg/dL * Please note that the plan above was derived based on current level of insulin resistance and hospital stress. These recommendations are appropriate for inpatient admission only. Plan of care upon discharge will need to be reassessed to avoid potential outpatient hypo/hyperglycemia. Thank you.
--- NOTE | 2016-10-30 13:21 | Neurology Progress Notes ---
Neurology Progress Note Date of Service Oct 30, 2016. Dejuan Hodge is a 66-year-old male with PMH MS (no longer on MS modulating drugs) end stage kidney disease on hemodialysis, end stage liver failure who fell in the [place]opez after his dialysis treatment. He said he felt that he needed to sit down and he headed toward the chair his leg gave out hit the front of his face on the wall and slid down the wall and that his face again on a railing attached to wall. He did experience a nose bleed and complains of nose pain, and neck pain. Bilateral upper extremities are numb, tingly and painful with his right arm and hand worse than his left. His is concerned because he is doing more falling recently. He fell at home and his left knee is swollen and bruised. He does walk with a cane occasionally but she feels he needs a walking and is requesting one be brought to the room. Today he has been down for dialysis and is waiting for the orthopedic surgery which should be around 3p. His and son are in the room and states they are anxious to get the surgery completed. denies CP, SOB, abdominal pain, weakness, vision changes, N, V. His only complaint today is the [place] J is now fitting well. Objective Date Time Temp Pulse Resp B/P (MAP) Pulse Ox O2 Delivery O2 Flow Rate FiO2 10/30/16 12:00 Room Air 10/30/16 10:58 36.6 73 18 165/78 (107) 96 Room Air 10/30/16 10:33 36.2 78 158/69 (98) 10/30/16 10:15 66 133/68 10/30/16 10:00 68 140/71 10/30/16 09:45 73 155/68 10/30/16 09:30 70 140/72 10/30/16 09:15 68 143/70 10/30/16 09:00 74 140/68 10/30/16 08:45 76 137/72 10/30/16 08:30 73 144/69 10/30/16 08:15 70 150/74 10/30/16 08:00 71 139/62 10/30/16 07:50 Room Air 10/30/16 07:45 73 152/74 10/30/16 07:30 70 153/70 10/30/16 07:15 77 144/69 10/30/16 07:00 80 151/71 10/30/16 06:45 74 148/69 10/30/16 06:30 76 158/78 10/30/16 06:15 76 162/66 10/30/16 06:00 36.4 78 172/68 (102) 10/30/16 04:00 36.9 82 18 190/78 (115) 93 Nasal Cannula 6.0 10/30/16 04:00 92 Nasal Cannula 2.0 10/30/16 00:00 92 Nasal Cannula 2.0 10/29/16 23:19 36.8 87 18 179/79 (112) 94 2.0 10/29/16 20:00 Room Air 10/29/16 19:57 37.0 88 18 164/77 (106) 96 Room Air 10/29/16 16:00 Nasal Cannula 2.0 10/29/16 15:20 36.7 88 16 152/69 (96) 96 Nasal Cannula 2.0 Last 24 Hours Test 10/29/16 16:42 10/29/16 20:30 10/30/16 05:20 10/30/16 05:38 Bedside Glucose 186 mg/dl 203 mg/dl 209 mg/dl White Blood Count 9.58 K/uL Red Blood Count 3.45 M/uL Hemoglobin 10.6 g/dL Hematocrit 31.1 % Mean Corpuscular Volume 90.1 fL Mean Corpuscular Hemoglobin 30.7 pg Mean Corpuscular Hemoglobin Concent 34.1 g/dl Platelet Count 173 K/uL Mean Platelet Volume 10.3 fL Neutrophils (%) (Auto) 87.6 % Lymphocytes (%) (Auto) 7.4 % Monocytes (%) (Auto) 4.6 % Eosinophils (%) (Auto) 0.0 % Basophils (%) (Auto) 0.0 % Neutrophils # (Auto) 8.39 K/uL Lymphocytes # (Auto) 0.71 K/uL Monocytes # (Auto) 0.44 K/uL Eosinophils # (Auto) 0.00 K/uL Basophils # (Auto) 0.00 K/uL RDW Standard Deviation 48.5 fL RDW Coefficient of Variation 14.7 % Immature Granulocyte % (Auto) 0.4 % Immature Granulocyte # (Auto) 0.04 K/uL Prothrombin Time 10.7 SECONDS Prothromb Time International Ratio 1.0 Activated Partial Thromboplast Time 27.0 SECONDS Partial Thromboplastin Ratio 1.0 Sodium Level 137 mmol/L Potassium Level 4.5 mmol/L Chloride Level 101 mmol/L Carbon Dioxide Level 29 mmol/L Anion Gap 7.0 mmol/L Blood Urea Nitrogen 31 mg/dl Creatinine 5.10 mg/dl Est Creatinine Clear Calc Drug Dose 15.2 ml/min Estimated GFR () 12.4 Estimated GFR (Non- 10.7 BUN/Creatinine Ratio 6.1 Random Glucose 221 mg/dl Calcium Level 9.6 mg/dl Phosphorus Level 4.1 mg/dl Magnesium Level 2.3 mg/dl Total Bilirubin 0.5 mg/dl Direct Bilirubin 0.2 mg/dl Aspartate Amino Transf (AST/SGOT) 224 U/L Alanine Aminotransferase (ALT/SGPT) 203 U/L Alkaline Phosphatase 287 U/L Total Protein 6.9 gm/dl Albumin 2.7 gm/dl Test 10/30/16 11:30 Bedside Glucose 162 mg/dl Imaging: no new imaging Exam: Gen: alert NAD PERRL/EOMI lungs normal respiration effort CV RRR moving UE and LE spontaneously and with command. tender to touch right hand sensation intact Current Inpatient Medications Medications (Trade) Dose Ordered Sig/Brendan Route Start Time Stop Time Status Last Admin Dose Admin Acetaminophen (Tylenol Tab) 650 mg Q4H PRN PO 10/29/16 01:15 11/28/16 01:14 Isosorbide Mononitrate (Imdur Ext Rel Tab) 30 mg QAM PO 10/29/16 09:00 11/28/16 08:59 10/30/16 11:04 30 MG Meclizine HCl (Antivert Tab) 25 mg DAILY PRN PO 10/29/16 01:15 11/28/16 01:14 Ondansetron HCl (Zofran Inj) 4 mg Q6H PRN IV 10/29/16 01:30 11/28/16 01:29 10/29/16 13:43 4 MG Glucose (Glucose 40% Gel) UD PRN PO 10/29/16 01:30 11/28/16 01:29 Glucose (Glucose Chew Tab) 1 tabs UD PRN PO 10/29/16 01:30 11/28/16 01:29 Dextrose (Dextrose 50% 50ML Syringe) 50 ml UD PRN IV 10/29/16 01:30 11/28/16 01:29 Glucagon (Glucagon Inj) 1 mg UD PRN SQ 10/29/16 01:30 11/28/16 01:29 Morphine Sulfate (MoRPHine SULFATE INJ) 2 mg Q2H PRN IV 10/29/16 01:30 11/12/16 01:29 10/29/16 18:56 2 MG Morphine Sulfate (MoRPHine SULFATE INJ) 4 mg Q2H PRN IV 10/29/16 01:30 11/12/16 01:29 10/30/16 06:17 4 MG Hydralazine HCl (HydrALAZINE INJ) 10 mg Q4H PRN IV. 10/29/16 01:30 11/28/16 01:29 10/30/16 04:23 10 MG Dexamethasone Sodium Phosphate 4 mg/Syringe 1 ml @ 1 mls/min Q6H IV 10/29/16 08:00 11/28/16 07:59 10/30/16 11:04 1 MLS/MIN Ipratropium Endeavor (Atrovent 0.02% 0.5MG/2.5ML Neb) 0.5 mg Q2H PRN INH 10/29/16 03:45 11/28/16 03:44 Levalbuterol (Xopenex 1.25MG/ 0.5ML Neb) 1.25 mg Q2H PRN INH 10/29/16 03:45 11/28/16 03:44 Miscellaneous Information (Order Awaiting Action) 1 ea QS N/A 10/29/16 08:00 11/28/16 07:59 Miscellaneous Information (Order Awaiting Action) 1 ea QS N/A 10/29/16 08:00 11/28/16 07:59 Metoprolol Succinate (Toprol Xl Tab) 100 mg BID PO 10/29/16 09:00 11/28/16 08:59 10/30/16 11:04 100 MG Dextrose/Sodium Chloride 1,000 ml @ 50 mls/hr Q20H IV 10/29/16 08:00 11/28/16 07:59 10/30/16 02:07 50 MLS/HR Vitamin B Complex/ Vit C/Folic Acid (Nephrocaps) 1 cap QAM PO 10/30/16 09:00 11/29/16 08:59 10/30/16 11:03 1 CAP Insulin Aspart (novoLOG ASPART) SLIDING SCALE If C... ACHS SC 10/29/16 12:30 11/28/16 12:29 10/30/16 12:21 1 UNITS Silodosin (Rapaflo Cap) 8 mg HS PO 10/30/16 21:00 11/29/16 20:59 Insulin Glargine (Lantus Solostar Pen) SEE PROTOCOL TEXT BID SC 10/30/16 17:00 11/29/16 16:59 Miscellaneous Information (Consult Glycemic Management Pharmacy) 1 ea UD PRN N/A 10/30/16 13:00 11/29/16 12:59 Insulin Aspart (novoLOG ASPART) SLIDING SCALE If C... 0200 ONCE SC 10/31/16 02:00 10/31/16 02:01 Impression 66 year old male with progressive MS, renal and liver end stage disease, s/p fall from standing Plan 1. no modulating MS medications can be safely starting in a patient with end stage renal and liver disease 2. burst IV steroids can be use with flare of disease if needed 3. requesting walker recommend a walker with seat so if patient gets tired can sit down on the walker 4. PT/OT evaluation for any other needs at home 5. orthopedics for neck injury treatment and follow up 6. surgery today for c spine fixation 7. will be available as needed. I have seen and discussed above patient with Dr Rivera Finn, neurology Above reviewed patient currently en route or in theor Iwill see tomorrow and follwo along post op but until things are stabilized post trauma and surgery any rx for ms will be held and the options are limited to monthly iv pulse treatments with solumedrol an approach that may have limited value in this setting Rivera Finn MD
[2016-10-30] MEDS ORDERED: NEOSTIGMINE METHYLSULFATE 5 MG/5 ML SYR ONE (14:04)
[2016-10-30] MEDS ORDERED: ROCURONIUM BROMIDE 10 MG/ML 5 ML VIAL ONE (14:04)
[2016-10-30] MEDS ORDERED: ONDANSETRON INJ 2 MG/ML 2 ML VIAL ONE (14:04)
[2016-10-30] MEDS ORDERED: DEXAMETHASONE SOD INJ 4 MG/ML VIAL ONE (14:04)
[2016-10-30] MEDS ORDERED: PROPOFOL IV EMULSION 10 MG/ML 20 ML VIAL IV ONE (14:04)
[2016-10-30] MEDS ORDERED: LIDOCAINE HCL 2% 2 ML VIAL (20MG/ML) ONE (14:04)
[2016-10-30] MEDS ORDERED: GLYCOPYRROLATE INJ 0.2 MG/ML VIAL ONE (14:04)
[2016-10-30] MEDS ORDERED: MIDAZOLAM HCL 1 MG/ML 2ML VIAL ONE (14:05)
[2016-10-30] MEDS ORDERED: FENTANYL CITRATE INJ 50 MCG/1 ML 2 ML VIAL ONE (14:05)
[2016-10-30] MEDS ORDERED: PROPOFOL IV EMULSION 10 MG/ML 100 ML VIAL IV ONE ×2 (14:06→17:29)
[2016-10-30] MEDS ORDERED: REMIFENTANIL 1 MG VIAL ONE ×3 (14:11→16:41)
--- NOTE | 2016-10-30 14:33 | DIAGNOSTIC IMAGING REPORT ---
RIGHT HAND MIN 3 VIEWS ROUTINE CLINICAL HISTORY: Right hand pain following fall. COMPARISON: None FINDINGS: Alignment of the right hand is anatomic. Positioning is suboptimal on the lateral projection. No fractures identified. 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 IMPRESSION: No acute fracture or dislocation of the right hand. Electronically signed by: Denver Robbins M.D. 10/30/2016 2:31 PM Dictated Date/Time: 10/30/2016 2:28 PM
--- NOTE | 2016-10-30 15:04 | Hospitalist Progress Note ---
Hospitalist Progress Note Date of Service Oct 30, 2016. Subjective overall feeling better today right hand pain still there. hurts to touch. wondering if he has a fracture no improvement in strength in right hand Constitutional: No fever Respiratory: No shortness of breath Cardiovascular: No chest pain Abdomen: No pain, No nausea Objective Vital Signs Date Time Temp Pulse Resp B/P (MAP) Pulse Ox O2 Delivery O2 Flow Rate FiO2 10/30/16 12:00 Room Air 10/30/16 10:58 36.6 73 18 165/78 (107) 96 Room Air 10/30/16 10:33 36.2 78 158/69 (98) 10/30/16 10:15 66 133/68 10/30/16 10:00 68 140/71 10/30/16 09:45 73 155/68 10/30/16 09:30 70 140/72 10/30/16 09:15 68 143/70 10/30/16 09:00 74 140/68 10/30/16 08:45 76 137/72 10/30/16 08:30 73 144/69 10/30/16 08:15 70 150/74 10/30/16 08:00 71 139/62 10/30/16 07:50 Room Air 10/30/16 07:45 73 152/74 10/30/16 07:30 70 153/70 10/30/16 07:15 77 144/69 10/30/16 07:00 80 151/71 10/30/16 06:45 74 148/69 10/30/16 06:30 76 158/78 10/30/16 06:15 76 162/66 10/30/16 06:00 36.4 78 172/68 (102) 10/30/16 04:00 36.9 82 18 190/78 (115) 93 Nasal Cannula 6.0 10/30/16 04:00 92 Nasal Cannula 2.0 10/30/16 00:00 92 Nasal Cannula 2.0 10/29/16 23:19 36.8 87 18 179/79 (112) 94 2.0 10/29/16 20:00 Room Air 10/29/16 19:57 37.0 88 18 164/77 (106) 96 Room Air 10/29/16 16:00 Nasal Cannula 2.0 10/29/16 15:20 36.7 88 16 152/69 (96) 96 Nasal Cannula 2.0 Physical Exam General Appearance: no apparent distress Neck: + pertinent finding (hard collar in place) Respiratory/Chest: lungs clear, no respiratory distress Cardiovascular: regular rate, rhythm Abdomen: normal bowel sounds, non tender, soft Extremities: + pertinent finding (right hand dorsum - tender to touch. ) Neurologic/Psychiatric: alert, oriented x 3, + pertinent finding (right UE weakness in strength 3/5. ? sec to pain) Skin: warm/dry Laboratory Results Last 24 Hours Test 10/29/16 16:42 10/29/16 20:30 10/30/16 05:20 10/30/16 05:38 Bedside Glucose 186 mg/dl 203 mg/dl 209 mg/dl White Blood Count 9.58 K/uL Red Blood Count 3.45 M/uL Hemoglobin 10.6 g/dL Hematocrit 31.1 % Mean Corpuscular Volume 90.1 fL Mean Corpuscular Hemoglobin 30.7 pg Mean Corpuscular Hemoglobin Concent 34.1 g/dl Platelet Count 173 K/uL Mean Platelet Volume 10.3 fL Neutrophils (%) (Auto) 87.6 % Lymphocytes (%) (Auto) 7.4 % Monocytes (%) (Auto) 4.6 % Eosinophils (%) (Auto) 0.0 % Basophils (%) (Auto) 0.0 % Neutrophils # (Auto) 8.39 K/uL Lymphocytes # (Auto) 0.71 K/uL Monocytes # (Auto) 0.44 K/uL Eosinophils # (Auto) 0.00 K/uL Basophils # (Auto) 0.00 K/uL RDW Standard Deviation 48.5 fL RDW Coefficient of Variation 14.7 % Immature Granulocyte % (Auto) 0.4 % Immature Granulocyte # (Auto) 0.04 K/uL Prothrombin Time 10.7 SECONDS Prothromb Time International Ratio 1.0 Activated Partial Thromboplast Time 27.0 SECONDS Partial Thromboplastin Ratio 1.0 Sodium Level 137 mmol/L Potassium Level 4.5 mmol/L Chloride Level 101 mmol/L Carbon Dioxide Level 29 mmol/L Anion Gap 7.0 mmol/L Blood Urea Nitrogen 31 mg/dl Creatinine 5.10 mg/dl Est Creatinine Clear Calc Drug Dose 15.2 ml/min Estimated GFR () 12.4 Estimated GFR (Non- 10.7 BUN/Creatinine Ratio 6.1 Random Glucose 221 mg/dl Calcium Level 9.6 mg/dl Phosphorus Level 4.1 mg/dl Magnesium Level 2.3 mg/dl Total Bilirubin 0.5 mg/dl Direct Bilirubin 0.2 mg/dl Aspartate Amino Transf (AST/SGOT) 224 U/L Alanine Aminotransferase (ALT/SGPT) 203 U/L Alkaline Phosphatase 287 U/L Total Protein 6.9 gm/dl Albumin 2.7 gm/dl Test 10/30/16 11:30 Bedside Glucose 162 mg/dl Assessment and Plan This is a 66 y/o male with PMHx of MS, end stage renal disease, HTN, DM, Chronic elevated LFTs and BPH presented to the hospital after a fall, witnessed by his . MRI of the spine showed tear through the anterior longitudinal ligament at the C6-C7 disc space level and edema at the ligamentum flavum. Maxillofacial CT showed mild nasal soft tissue swelling and a small laceration, probable nondisplaced nasal bone fractures. Head CT was normal. * Acute cervical spine injury after fall - CT showed no fractures, no subluxation. Prevertebral soft tissues and the C1-C2 interval are intact. No pneumothorax. There is a 7 mm groundglass nodule within the left lung apex. Mild disc space narrowing and endplate osteophytes at C5-C6 and C6-C7. - MRI showed focal tear through the anterior longitudinal ligament at the C6- C7 disc space level with increased T2 signal within the anterior C6-C7 disc space consistent with an acute injury. There is also mild edema at the C6-C7 ligamentum flavum consistent with a tear. - For C spine surgery by orthopedics today. - c/w Decadron 4mg q6h - Morphine for pain prn - C/w D5w +1/2NSS 50ml/hr * Right hand pain - Check xray * Multiple sclerosis - CT of head normal, no new changes - Neurology was consulted. Input appreciated. Recommended burst IV steroid with flare of disease. No modulating MS medication can be safely started given the ESRD *End-stage renal disease on hemodialysis - On dialysis M,W,F via right IJ tunnel dialysis catheter. Patient has dialysis yesterday and went well. - Cr is 2.4 - Nephrology following - Dr. Matute. c/w with maintenance fluid while patient is NPO otherwise avoid IVF and continue on phosphate binder and Nephrocaps when patient starts orally. * HTN - C/w metoprolol 100mg BID - C/w Imdur 30mg - Hydralazine 10mg IV q4h prn * Chronic abnormal liver function tests - Patient follows his PCP for the abnormal LFTs. GGT was normal according to the PCP note. - AST 112, ALT 103, Alkaline phos 204 - This is can be addressed as outpatient by the PCP * DMII - Patient is currently on sliding scale with Novolog. - C/w to hold Lantus * DVT prophylaxis - SCDs * Code Status - Full code Requesting walker on discharge - Will address with case management
[2016-10-30] MEDS ORDERED: GELATIN SPONGE SZ 100 ONE (15:07)
[2016-10-30] MEDS ORDERED: THROMBIN FOR SOLN 20000 UNIT KIT ONE (15:08)
[2016-10-30] MEDS ORDERED: BACITRACIN 50000 UNIT VIAL ONE (15:08)
[2016-10-30] MEDS ORDERED: BUPIVACAINE/EPINEPHRINE 0.5% MPF 1:200,000 10 ML VIAL ONE (15:23)
[2016-10-30] MEDS ORDERED: CEFAZOLIN SOD 1 GM VIAL ONE (16:09)
[2016-10-30] MEDS ORDERED: ATROPINE SULFATE 0.1 MG/ML 5ML SYR IV PRN (16:30)
[2016-10-30] MEDS ORDERED: ONDANSETRON INJ 2 MG/ML 2 ML VIAL IV PRN ×2 (16:30→18:15)
[2016-10-30] MEDS ORDERED: HYDROmorphone INJ 2 MG/ML SYR/VIAL ONE (16:30)
[2016-10-30] MEDS ORDERED: HYDROmorphone INJ 2 MG/ML SYR/VIAL IV PRN (16:30)
[2016-10-30] MEDS ORDERED: PHENYLEPHRINE 100MCG/ML 5ML SYR IV PRN (16:30)
[2016-10-30] MEDS ORDERED: EpHEDrine SULFATE INJ 50 MG/ML AMP IV PRN (16:30)
[2016-10-30] MEDS: INSULIN GLARGINE SOLOSTAR 100 UNITS/ML 3 ML PEN SC SCH (17:00)
--- NOTE | 2016-10-30 18:08 | [facility] Post Operative Brief Note ---
Immediate Operative Summary Operative Date Oct 30, 2016. Pre-Operative Diagnosis C5-C7 Ligamentous instability and disc herniation Post-Operative Diagnosis same as preop Procedure(s) Performed C5-C7 Anterior Cervical Discectomy and Fusion with right iliac crest bone graft , use of spinal cord monitoring Surgeon Dr. Pichardo Disc Recordist Surgeon(s) Brayan Krueger PA-C Estimated Blood Loss 50ml Findings Ligament tear C5-7 Specimens none Complication(s) None Disposition Recovery Room / PACU
--- NOTE | 2016-10-30 18:09 | [facility] Operative Report ---
Operative Report Operative Date Oct 30, 2016. Pre-Operative Diagnosis C5-C7 Ligamentous instability and disc herniation Procedure(s) Performed acdf C5-7 with iliac crest graft Surgeon Dr. Pichardo Machine Design Teacher Surgeon(s) Brayan Krueger PA-C Estimated Blood Loss 50ml Findings ligamentous instability Specimens none Complication(s) None Disposition Recovery Room / PACU I attest to the content of the Intraoperative Record and any orders documented therein. Any exceptions are noted below.
[2016-10-30] MEDS ORDERED: DEXAMETHASONE INJ 8 MG in SYRINGE 0 ML IV PRN (18:15)
[2016-10-30] MEDS ORDERED: LORAZEPAM INJ 0.5 MG in SYRINGE 0.75 ML IV PRN (18:15)
[2016-10-30] MEDS ORDERED: NALOXONE HCL 0.4 MG/1 ML VIAL/CARP IV PRN (18:15)
[2016-10-30] MEDS ORDERED: MAGNESIUM HYDROXIDE SUSP 30 ML UDC PO PRN (18:15)
[2016-10-30] MEDS ORDERED: RACEPINEPHRINE 2.25% NEBU SOLN 0.5 ML VIAL INH PRN (18:15)
[2016-10-30] MEDS ORDERED: ACETAMINOPHEN IV 1,000 MG in EMPTY BAG 0 ML IV PRN (18:15)
--- NOTE | 2016-10-30 19:51 | Anesthesiology Progress Note ---
Anesthesia Post Op Note Date & Time Oct 30, 2016 at 19:51 Vital Signs Pain Intensity: 0 Vital Signs Past 12 Hours Date Time Temp Pulse Resp B/P (MAP) Pulse Ox O2 Delivery O2 Flow Rate FiO2 10/30/16 19:40 83 19 155/75 99 Mask 10 10/30/16 19:30 81 16 167/78 100 Mask 10 10/30/16 19:20 84 16 158/75 100 Mask 10 10/30/16 19:10 85 21 165/80 100 Mask 10 10/30/16 19:00 36.4 85 10 184/79 100 Mask 10 10/30/16 12:00 Room Air 10/30/16 10:58 36.6 73 18 165/78 (107) 96 Room Air 10/30/16 10:33 36.2 78 158/69 (98) 10/30/16 10:15 66 133/68 10/30/16 10:00 68 140/71 10/30/16 09:45 73 155/68 10/30/16 09:30 70 140/72 10/30/16 09:15 68 143/70 10/30/16 09:00 74 140/68 10/30/16 08:45 76 137/72 10/30/16 08:30 73 144/69 10/30/16 08:15 70 150/74 10/30/16 08:00 71 139/62 Notes Mental Status: alert / awake / arousable, participated in evaluation Pt Amnestic to Procedure: Yes Nausea / Vomiting: adequately controlled Pain: adequately controlled Airway Patency, RR, SpO2: stable & adequate BP & HR: stable & adequate Hydration State: stable & adequate Anesthetic Complications: no major complications apparent
[2016-10-30] MEDS: SODIUM CHLORIDE 0.9% 1000ML 1,000 ML IV SCH (20:54)
[2016-10-30] MEDS: DOCUSATE SODIUM 100 MG CAP PO SCH (20:59)
[2016-10-30] MEDS: ASPIRIN 81 MG ECTAB PO SCH (20:59)
[2016-10-30] MEDS: CEFAZOLIN IV 1,000 MG in DEXTROSE 5% 50ML 50 ML IV SCH (23:53)
[2016-10-30] MEDS: DEXAMETHASONE INJ 6 MG in SYRINGE 0 ML IV SCH (23:54)
[2016-10-30] MEDS ORDERED: PHARMACY GLYCEMIC MGMT CONSULT STA (23:59)
[2016-10-31] VITALS (25 sets, daily range): BP systolic 99–187; BP diastolic 54–84; PULSE 60–86; TEMP 36.3–36.6; O2SAT 93–100
[2016-10-31] MEDS: HydrALAZINE HCL 20 MG/ML VIAL IV. PRN (00:01)
--- NOTE | 2016-10-31 00:07 | Critical Care Consultation ---
Critical Care Consultation Date of Consultation: Oct 30, 2016. Attending Physician: Gaby Ramires M.D. Reason for Consultation: ICU monitoring History of Present Illness This is a 66-year-old gentleman with a history of multiple sclerosis and end-stage kidney disease who presented to the hospital on 10/28 after a fall as he was coming out of dialysis. He suffered a ligamentous injury to the C- spine assesses dictating a C5 C7 ACDF today. There was a report that he was unable to be extubated but he arrived in the intensive care unit without the ventilator. He received 400 mL of LR intraoperatively and had 50 mL estimated blood loss. There are no reported complications with his surgery. He remains in a [place] J collar. He doesn't really give a very good history and has trouble answering anything but simple yes or no questions. He denies pain in the neck or chest. He denies shortness of breath. The numbness and tingling that he has in his upper extremities is no better or worse than usual. I do not see an operative note. Originally when he was admitted to the hospital he was seen by . He has been on Decadron since that time as well. He is being seen by the neurology and nephrology services. Also of note his left upper extremity fistula was revised on 10/[address] Velazquez. Past Medical/Surgical History End-stage kidney disease with dialysis every Wednesday Multiple sclerosis Benign prostatic hypertrophy Diabetes mellitus Hypertension Left upper extremity fistula Revision of left upper extremity fistula Colostomy Family History Hypertension Social History Smoking Status: Never Smoker Smokeless Tobacco Use: No Alcohol Use: none Drug Use: none Marital Status: Housing Status: lives with family Occupation Status: retired Allergies Coded Allergies: No Known Allergies (Verified , 10/27/16) Home Medications Scheduled Aspirin (Aspirin Ec), 81 MG PO HS Dutasteride (Avodart), 0.5 MG PO HS Ergocalciferol (Vitamin D 92322 Unit), 50,000 INTER.UNIT PO MONTHLY Insulin Glargine (Lantus Solostar), 60 UNITS SC QAM Isosorbide Mononitrate Ext Rel (Imdur Ext Rel), 30 MG PO QAM Metoprolol Succinate (Toprol Xl), 200 MG PO QAM Multivitamin (Multivitamin), 1 TAB PO QPM Nifedipine (Nifedipine Er), 90 MG PO QAM Silodosin (Rapaflo), 8 MG PO HS Scheduled PRN Meclizine Hcl (Meclizine Hcl), 25 MG PO UD PRN for Dizziness or Vertigo Oxycodone/Acetaminophen 5MG/325MG (Percocet 5MG/325MG), 1 TABLET PO Q4H PRN for Pain Current Inpatient Medications Current Inpatient Medications Medications (Trade) Dose Ordered Sig/Brendan Route Start Time Stop Time Status Last Admin Dose Admin Acetaminophen (Tylenol Tab) 650 mg Q4H PRN PO 10/29/16 01:15 11/28/16 01:14 Isosorbide Mononitrate (Imdur Ext Rel Tab) 30 mg QAM PO 10/29/16 09:00 11/28/16 08:59 10/30/16 11:04 30 MG Meclizine HCl (Antivert Tab) 25 mg DAILY PRN PO 10/29/16 01:15 11/28/16 01:14 Glucose (Glucose 40% Gel) UD PRN PO 10/29/16 01:30 11/28/16 01:29 Glucose (Glucose Chew Tab) 1 tabs UD PRN PO 10/29/16 01:30 11/28/16 01:29 Dextrose (Dextrose 50% 50ML Syringe) 50 ml UD PRN IV 10/29/16 01:30 11/28/16 01:29 Glucagon (Glucagon Inj) 1 mg UD PRN SQ 10/29/16 01:30 11/28/16 01:29 Hydralazine HCl (HydrALAZINE INJ) 10 mg Q4H PRN IV. 10/29/16 01:30 11/28/16 01:29 10/30/16 04:23 10 MG Ipratropium [place] (Atrovent 0.02% 0.5MG/2.5ML Neb) 0.5 mg Q2H PRN INH 10/29/16 03:45 11/28/16 03:44 Levalbuterol (Xopenex 1.25MG/ 0.5ML Neb) 1.25 mg Q2H PRN INH 10/29/16 03:45 11/28/16 03:44 Miscellaneous Information (Order Awaiting Action) 1 ea QS N/A 10/29/16 08:00 11/28/16 07:59 Miscellaneous Information (Order Awaiting Action) 1 ea QS N/A 10/29/16 08:00 11/28/16 07:59 Metoprolol Succinate (Toprol Xl Tab) 100 mg BID PO 10/29/16 09:00 11/28/16 08:59 10/30/16 21:00 100 MG Vitamin B Complex/ Vit C/Folic Acid (Nephrocaps) 1 cap QAM PO 10/30/16 09:00 11/29/16 08:59 10/30/16 11:03 1 CAP Insulin Aspart (novoLOG ASPART) SLIDING SCALE If C... ACHS SC 10/29/16 12:30 11/28/16 12:29 10/30/16 21:12 4 UNITS Silodosin (Rapaflo Cap) 8 mg HS PO 10/30/16 21:00 11/29/16 20:59 10/30/16 22:55 8 MG Insulin Glargine (Lantus Solostar Pen) SEE PROTOCOL TEXT BID SC 10/30/16 17:00 11/29/16 16:59 Miscellaneous Information (Consult Glycemic Management Pharmacy) 1 ea UD PRN N/A 10/30/16 13:00 11/29/16 12:59 Insulin Aspart (novoLOG ASPART) SLIDING SCALE If C... 0200 ONCE SC 10/31/16 02:00 10/31/16 02:01 Racepinephrine (Raccemic Epinephrine 2.25% 0.5ML Neb) 0.5 ml ONE PRN INH 10/30/16 18:15 Acetaminophen 1000 mg/Empty Bag 100 ml @ 400 mls/hr Q8H PRN IV 10/30/16 18:15 11/29/16 18:14 Hydromorphone HCl (Dilaudid Inj) 0.5mg IV for moder... Q3H PRN IV 10/30/16 18:15 11/13/16 18:14 Magnesium Hydroxide (Milk Of Magnesia Susp) 30 ml DAILY PRN PO 10/30/16 18:15 11/29/16 18:14 Docusate Sodium (coLACE CAP) 100 mg BID PO 10/30/16 21:00 11/29/16 20:59 10/30/16 20:59 100 MG Ondansetron HCl (Zofran Inj) 4 mg Q6 PRN IV 10/30/16 18:15 11/29/16 18:14 Cefazolin Sodium 1000 mg/Dextrose 55 ml @ 100 mls/hr Q8H IV 10/31/16 00:00 10/31/16 16:32 Lorazepam 0.5 mg/ Syringe 1 ml @ 1 mls/min Q8H PRN IV 10/30/16 18:15 11/29/16 18:14 Dexamethasone Sodium Phosphate 6 mg/Syringe 1.5 ml @ 1 mls/min Q8H IV 10/31/16 00:00 10/31/16 16:02 Sodium Chloride 1,000 ml @ 80 mls/hr [id number] IV 10/30/16 18:07 10/31/16 18:06 10/30/16 20:54 80 MLS/HR Acetaminophen/ Hydrocodone Bitart ([place] 5/325 Tab) 1 tablet for pain scale ... Q4H PRN PO 10/30/16 18:15 11/13/16 18:14 Bisacodyl (Dulcolax Supp) 10 mg DAILY PRN OK 11/01/16 06:00 12/01/16 05:59 Dexamethasone Sodium Phosphate 8 mg/Syringe 2 ml @ 1 mls/min ONE PRN IV 10/30/16 18:15 Naloxone HCl (Narcan Inj) 0.1 mg Q5M PRN IV 10/30/16 18:15 11/29/16 18:14 Aspirin (Ecotrin Tab) 81 mg HS PO 10/30/16 21:00 11/29/16 20:59 10/30/16 20:59 81 MG Nifedipine (Procardia Xl Tab) 90 mg QAM PO 10/31/16 09:00 11/30/16 08:59 Review of Systems Review of systems is limited as the patient has trouble answering yes and no questions. He definitely denies pain in the neck. He denies abdominal pain constipation diarrhea. He walks with a cane. Additional review of systems are negative or noncontributory 12 point system other than what's presented in history of present illness Physical Exam Date Time Temp Pulse Resp B/P (MAP) Pulse Ox O2 Delivery O2 Flow Rate FiO2 10/30/16 23:00 78 12 163/82 (109) 97 10/30/16 22:00 77 14 168/76 (106) 96 Nasal Cannula 4.0 10/30/16 21:00 77 14 163/76 (105) 98 Nasal Cannula 4.0 10/30/16 20:20 84 98 Nasal Cannula 2.0 10/30/16 20:16 36.6 81 14 168/82 (110) 97 Nasal Cannula 4.0 10/30/16 20:00 100 Nasal Cannula 4.0 10/30/16 20:00 85 19 173/79 100 Nasal Cannula 4 10/30/16 19:50 36.5 80 14 169/70 99 Nasal Cannula 4 10/30/16 19:40 83 19 155/75 99 Mask 10 10/30/16 19:30 81 16 167/78 100 Mask 10 10/30/16 19:20 84 16 158/75 100 Mask 10 10/30/16 19:10 85 21 165/80 100 Mask 10 10/30/16 19:00 36.4 85 10 184/79 100 Mask 10 10/30/16 12:00 Room Air 10/30/16 10:58 36.6 73 18 165/78 (107) 96 Room Air 10/30/16 10:33 36.2 78 158/69 (98) 10/30/16 10:15 66 133/68 10/30/16 10:00 68 140/71 10/30/16 09:45 73 155/68 10/30/16 09:30 70 140/72 10/30/16 09:15 68 143/70 10/30/16 09:00 74 140/68 10/30/16 08:45 76 137/72 10/30/16 08:30 73 144/69 10/30/16 08:15 70 150/74 10/30/16 08:00 71 139/62 10/30/16 07:50 Room Air 10/30/16 07:45 73 152/74 10/30/16 07:30 70 153/70 10/30/16 07:15 77 144/69 10/30/16 07:00 80 151/71 10/30/16 06:45 74 148/69 10/30/16 06:30 76 158/78 10/30/16 06:15 76 162/66 10/30/16 06:00 36.4 78 172/68 (102) 10/30/16 04:00 36.9 82 18 190/78 (115) 93 Nasal Cannula 6.0 10/30/16 04:00 92 Nasal Cannula 2.0 10/30/16 00:00 92 Nasal Cannula 2.0 General: He awakens easily and appears comfortable in the bed and his [place] J collar. HEENT pupils are equally round and reactive to light. He is a Dr. [place] and mucosa is moist. Neck: Cervical collar is in place. There is a blood tinged dressing over the anterior neck that I can see through the collar. There is no hematoma. Lungs: Clear to auscultation bilaterally no rales rhonchi or wheezes. Heart: Regular rate and rhythm Abdomen: Mildly distended soft nontender. There is a colostomy in the left lower quadrant and a dressing over the right lower quadrant which is clean dry and intact. Extremities: Warm, there is ecchymosis over the medial aspect of most of the left arm. There are also Steri-Strips in place. Bruit is palpable. Neuro: There is no facial droop, tongue is midline, upper extremity strength is 4+ over 5. Laboratory Results Last 24 Hours Test 10/30/16 05:20 10/30/16 05:38 10/30/16 11:30 10/30/16 19:05 White Blood Count 9.58 K/uL Red Blood Count 3.45 M/uL Hemoglobin 10.6 g/dL Hematocrit 31.1 % Mean Corpuscular Volume 90.1 fL Mean Corpuscular Hemoglobin 30.7 pg Mean Corpuscular Hemoglobin Concent 34.1 g/dl Platelet Count 173 K/uL Mean Platelet Volume 10.3 fL Neutrophils (%) (Auto) 87.6 % Lymphocytes (%) (Auto) 7.4 % Monocytes (%) (Auto) 4.6 % Eosinophils (%) (Auto) 0.0 % Basophils (%) (Auto) 0.0 % Neutrophils # (Auto) 8.39 K/uL Lymphocytes # (Auto) 0.71 K/uL Monocytes # (Auto) 0.44 K/uL Eosinophils # (Auto) 0.00 K/uL Basophils # (Auto) 0.00 K/uL RDW Standard Deviation 48.5 fL RDW Coefficient of Variation 14.7 % Immature Granulocyte % (Auto) 0.4 % Immature Granulocyte # (Auto) 0.04 K/uL Prothrombin Time 10.7 SECONDS Prothromb Time International Ratio 1.0 Activated Partial Thromboplast Time 27.0 SECONDS Partial Thromboplastin Ratio 1.0 Sodium Level 137 mmol/L Potassium Level 4.5 mmol/L Chloride Level 101 mmol/L Carbon Dioxide Level 29 mmol/L Anion Gap 7.0 mmol/L Blood Urea Nitrogen 31 mg/dl Creatinine 5.10 mg/dl Est Creatinine Clear Calc Drug Dose 15.2 ml/min Estimated GFR () 12.4 Estimated GFR (Non- 10.7 BUN/Creatinine Ratio 6.1 Random Glucose 221 mg/dl Calcium Level 9.6 mg/dl Phosphorus Level 4.1 mg/dl Magnesium Level 2.3 mg/dl Total Bilirubin 0.5 mg/dl Direct Bilirubin 0.2 mg/dl Aspartate Amino Transf (AST/SGOT) 224 U/L Alanine Aminotransferase (ALT/SGPT) 203 U/L Alkaline Phosphatase 287 U/L Total Protein 6.9 gm/dl Albumin 2.7 gm/dl Bedside Glucose 209 mg/dl 162 mg/dl 227 mg/dl Test 10/30/16 21:09 Bedside Glucose 248 mg/dl Diagnostic Results Reports of multiple radiographic studies have been reviewed. Assessment & Plan 1. Status post C5-C7 ACDF, doing well. No signs of hematoma. No airway compromise. He continues on Decadron. 2. Hypertension, he recently received his p.m. doses of oral medications. 3. Status post fall with nasal fracture and nasal laceration along with ligamentous injury to the cervical spine 4. Mild elevation of liver function tests, not a new issue. 5. History of multiple sclerosis, neurology is following. 6. End-stage renal disease with recent revision of his left upper extremity fistula. He has a right internal jugular dialysis catheter in place. Nephrology is following 7. Diabetes mellitus type 2 Plan: Neuro: He has acetaminophen, [place] and hydromorphone ordered for pain. Continue Decadron per orthopedic recommendations Cardiovascular: Continue present medications for hypertension. He will also likely get a when necessary dose of hydralazine tonight. Pulmonary: Recommend beginning incentive spirometry tomorrow or when cleared by the orthopedic service. Continue to watch for any signs of airway compromise from any bleeding from the surgical site. Renal: Continue dialysis Wednesday. Appropriately dose medications and avoid nephrotoxins. Decrease IV fluids or discontinue in the morning. GI: Allow a renal diet once okay with the surgical services. Continue Colace. Follow liver function tests. Endocrine: Glycemic consult for increasing blood sugars. Heme: No acute active issues. SCDs for DVT prophylaxis Infectious disease: Continue perioperative cefazolin. Miscellaneous: PT and OT when cleared by orthopedic service.
[2016-10-31] MEDS ORDERED: INSULIN GLARGINE SOLOSTAR 100 UNITS/ML 3 ML PEN SC ONE (01:45)
[2016-10-31] MEDS ORDERED: INSULIN ASPART 100 UNITS/ML 3 ML PEN SC ONE (02:00)
[2016-10-31 05:53] LABS: HEMATOCRIT 24.9 % (42-52); IG% 0.3 %; LYMPH % 7.3 %; LYMPH ABS # 0.76 K/uL (1.2-3.4); MEAN CELL VOLUME 88.9 fL (80-100); MEAN CORPUSCULAR HEMOGLOBIN 30.4 pg (25-34); MEAN CORPUSCULAR HGB CONC 34.1 g/dl (32-36); MEAN PLATELET VOLUME 9.9 fL (7.4-10.4); MONO % 7.8 %; NEUT % 84.6 %; PLATELET COUNT 180 K/uL (130-400); WHITE BLOOD COUNT 10.38 K/uL (4.8-10.8)
[2016-10-31 06:04] LABS: INR 1.1 (0.9-1.1); PARTIAL THROMBOPLASTIN RATIO 1.1; PROTHROMBIN TIME (PATIENT) 11.4 SECONDS (9.0-12.0)
[2016-10-31 06:10] LABS: ALT/SGPT 108 U/L (12-78); AST/SGOT 99 U/L (15-37); BLOOD UREA NITROGEN 34 mg/dl (7-18); BUN/CREATININE RATIO 9.1 (10-20); CARBON DIOXIDE 24 mmol/L (21-32); CHLORIDE 104 mmol/L (98-107); GLUCOSE 203 mg/dl (70-99); SODIUM 137 mmol/L (136-145)
[2016-10-31 06:21] LABS: ALKALINE PHOSPHATASE 209 U/L (45-117); CALCIUM 8.1 mg/dl (8.5-10.1)
[2016-10-31 06:26] LABS: ANISOCYTOSIS PRESENT; COMPLETE YES
[2016-10-31] MEDS ORDERED: NURSING VERBAL MED ORDER ONE (07:45)
[2016-10-31] MEDS: SODIUM CHLORIDE 0.9% 1000ML 1,000 ML IV SCH (08:04)
[2016-10-31] MEDS: HYDROmorphone INJ 0.5 MG/0.5 ML SYR IV PRN ×5 (08:05→21:25)
[2016-10-31] MEDS: DEXAMETHASONE INJ 6 MG in SYRINGE 0 ML IV SCH (08:13)
[2016-10-31] MEDS: INSULIN ASPART 100 UNITS/ML 3 ML PEN SC SCH ×4 (08:32→21:15)
[2016-10-31] MEDS ORDERED: INSULIN GLARGINE SOLOSTAR 100 UNITS/ML 3 ML PEN SC SCH (09:00)
[2016-10-31] MEDS: CEFAZOLIN IV 1,000 MG in DEXTROSE 5% 50ML 50 ML IV SCH ×2 (09:56→16:11)
[2016-10-31] MEDS: DOCUSATE SODIUM 100 MG CAP PO SCH ×2 (09:56→21:04)
[2016-10-31] MEDS: NIFEdipine 30 MG CR TAB PO SCH (09:57)
[2016-10-31] MEDS: ISOSORBIDE MONONITRATE 30 MG TABCR PO SCH (09:57)
[2016-10-31] MEDS: NEPHROCAPS PO SCH (09:57)
[2016-10-31] MEDS: METOPROLOL SUCC 50MG EXT REL TAB PO SCH ×2 (09:58→21:05)
[2016-10-31] MEDS: INSULIN GLARGINE SOLOSTAR 100 UNITS/ML 3 ML PEN SC SCH ×2 (10:01→21:16)
--- NOTE | 2016-10-31 10:53 | Nephrology Progress Note ---
Nephrology Progress Note Date of Service Oct 31, 2016. Chief Complaint Follow up evaluation of this patient w/ ESRD on HD Subjective Mr. Bravo was seen & examined in the ICU this morning. His was present at bedside. The patient reports that he feels well following his neck surgery. He has little discomfort. He hopes to transfer from the ICU to a regular bed and begin physical therapy. He & his have ordered a rolling walker with a seat for when he returns home. Mr. Bravo was last dialyzed yesterday in the hospital. cutter in notes reviewed. The patient dialyzed for 4 hours w/ 2100 cc UF. There were no complications. Review of Systems Constitutional: No fever Cardiovascular: No chest pain Respiratory: No dyspnea at rest Abdomen: No pain, No nausea Extremities: No leg edema A complete review of systems was performed. Pertinent positives are noted above. All other systems are negative. Vital Signs Last 8 Hrs Date Time Temp Pulse Resp B/P (MAP) Pulse Ox O2 Delivery O2 Flow Rate FiO2 10/31/16 10:00 71 17 132/64 (86) 98 Nasal Cannula 10/31/16 09:00 72 14 136/69 (91) 98 Nasal Cannula 10/31/16 08:00 69 14 154/84 (107) 99 Nasal Cannula 10/31/16 08:00 97 Nasal Cannula 2.0 10/31/16 08:00 Nasal Cannula 10/31/16 07:53 70 16 97 Nasal Cannula 2.0 10/31/16 06:00 67 12 140/69 (92) 10/31/16 05:00 67 13 130/60 (83) 98 10/31/16 04:08 100 Nasal Cannula 4.0 10/31/16 04:00 71 13 136/68 (90) 98 10/31/16 04:00 36.6 71 13 136/68 (90) 98 10/31/16 03:52 69 12 98 Nasal Cannula 2.0 10/31/16 03:00 74 13 130/68 (88) 98 Last Recorded Weight Weight (Kilograms): 87.100 Physical Exam General Appearance: no apparent distress Head: + evidence of trama Eyes: PERRL, EOMI Neck: + pertinent finding (clean dry dressing overlying incision site) Respiratory/Chest: lungs clear Cardiovascular: regular rate, rhythm Abdomen/GI: normal bowel sounds, non tender, soft Extremities/Musculoskelatal: no calf tenderness, no pedal edema Neurologic/Psych: alert, oriented x 3 Family History Hypertension Social History Smoking Status: Never smoker Smokeless Tobacco Use: No Alcohol Use: none Drug Use: none Marital Status: Housing Status: lives with family Occupation: retired Laboratory Results Past 24 Hours 10/31/16 05:28 Red Blood Count 2.80, Mean Corpuscular Volume 88.9, Mean Corpuscular Hemoglobin 30.4, Mean Corpuscular Hemoglobin Concent 34.1, Mean Platelet Volume 9.9, Neutrophils (%) (Auto) 84.6, Lymphocytes (%) (Auto) 7.3, Monocytes (%) (Auto) 7.8, Eosinophils (%) (Auto) 0.0, Basophils (%) (Auto) 0.0, Neutrophils # (Auto) 8.78, Lymphocytes # (Auto) 0.76, Monocytes # (Auto) 0.81, Eosinophils # (Auto) 0.00, Basophils # (Auto) 0.00 10/31/16 05:28 Test 10/30/16 11:30 10/30/16 19:05 10/30/16 21:09 10/31/16 01:31 Bedside Glucose 162 mg/dl (70-99) 227 mg/dl (70-99) 248 mg/dl (70-99) 259 mg/dl (70-99) Test 10/31/16 05:28 10/31/16 07:49 White Blood Count 10.38 K/uL (4.8-10.8) Red Blood Count 2.80 M/uL (4.7-6.1) Hemoglobin 8.5 g/dL (14.0-18.0) Hematocrit 24.9 % (42-52) Mean Corpuscular Volume 88.9 fL (80-100) Mean Corpuscular Hemoglobin 30.4 pg (25-34) Mean Corpuscular Hemoglobin Concent 34.1 g/dl (32-36) Platelet Count 180 K/uL (130-400) Mean Platelet Volume 9.9 fL (7.4-10.4) Neutrophils (%) (Auto) 84.6 % Lymphocytes (%) (Auto) 7.3 % Monocytes (%) (Auto) 7.8 % Eosinophils (%) (Auto) 0.0 % Basophils (%) (Auto) 0.0 % Neutrophils # (Auto) 8.78 K/uL (1.4-6.5) Lymphocytes # (Auto) 0.76 K/uL (1.2-3.4) Monocytes # (Auto) 0.81 K/uL (0.11-0.59) Eosinophils # (Auto) 0.00 K/uL (0-0.5) Basophils # (Auto) 0.00 K/uL (0-0.2) RDW Standard Deviation 48.4 fL (36.4-46.3) RDW Coefficient of Variation 14.7 % (11.5-14.5) Immature Granulocyte % (Auto) 0.3 % Immature Granulocyte # (Auto) 0.03 K/uL (0.00-0.02) Basophilic Stippling 1+ Anisocytosis PRESENT Prothrombin Time 11.4 SECONDS (9.0-12.0) Prothromb Time International Ratio 1.1 (0.9-1.1) Activated Partial Thromboplast Time 27.7 SECONDS (21.0-31.0) Partial Thromboplastin Ratio 1.1 Anion Gap 9.0 mmol/L (3-11) Est Creatinine Clear Calc Drug Dose 20.9 ml/min Estimated GFR () 18.3 Estimated GFR (Non- 15.8 BUN/Creatinine Ratio 9.1 (10-20) Calcium Level 8.1 mg/dl (8.5-10.1) Magnesium Level 2.0 mg/dl (1.8-2.4) Total Bilirubin 0.2 mg/dl (0.2-1) Direct Bilirubin < 0.1 mg/dl (0-0.2) Aspartate Amino Transf (AST/SGOT) 99 U/L (15-37) Alanine Aminotransferase (ALT/SGPT) 108 U/L (12-78) Alkaline Phosphatase 209 U/L (45-117) Total Protein 5.7 gm/dl (6.4-8.2) Albumin 2.2 gm/dl (3.4-5.0) Bedside Glucose 209 mg/dl (70-99) Date/Time Source Procedure Growth Status 10/30/16 22:40 Nasal MRSA DNA Surveillance Screen - Final Specimen Negative for MRSA by DNA Probe Complete Allergies Coded Allergies: No Known Allergies (Verified , 10/27/16) Medications Current Inpatient Medications Medications (Trade) Dose Ordered Sig/Brendan Route Start Time Stop Time Status Last Admin Dose Admin Acetaminophen (Tylenol Tab) 650 mg Q4H PRN PO 10/29/16 01:15 11/28/16 01:14 Isosorbide Mononitrate (Imdur Ext Rel Tab) 30 mg QAM PO 10/29/16 09:00 11/28/16 08:59 10/31/16 09:57 30 MG Meclizine HCl (Antivert Tab) 25 mg DAILY PRN PO 10/29/16 01:15 11/28/16 01:14 Glucose (Glucose 40% Gel) UD PRN PO 10/29/16 01:30 11/28/16 01:29 Glucose (Glucose Chew Tab) 1 tabs UD PRN PO 10/29/16 01:30 11/28/16 01:29 Dextrose (Dextrose 50% 50ML Syringe) 50 ml UD PRN IV 10/29/16 01:30 11/28/16 01:29 Glucagon (Glucagon Inj) 1 mg UD PRN SQ 10/29/16 01:30 11/28/16 01:29 Hydralazine HCl (HydrALAZINE INJ) 10 mg Q4H PRN IV. 10/29/16 01:30 11/28/16 01:29 10/31/16 00:01 10 MG Ipratropium [place] (Atrovent 0.02% 0.5MG/2.5ML Neb) 0.5 mg Q2H PRN INH 10/29/16 03:45 11/28/16 03:44 Levalbuterol (Xopenex 1.25MG/ 0.5ML Neb) 1.25 mg Q2H PRN INH 10/29/16 03:45 11/28/16 03:44 Miscellaneous Information (Order Awaiting Action) 1 ea QS N/A 10/29/16 08:00 11/28/16 07:59 10/31/16 08:13 1 EA Metoprolol Succinate (Toprol Xl Tab) 100 mg BID PO 10/29/16 09:00 11/28/16 08:59 10/31/16 09:58 100 MG Vitamin B Complex/ Vit C/Folic Acid (Nephrocaps) 1 cap QAM PO 10/30/16 09:00 11/29/16 08:59 10/31/16 09:57 1 CAP Insulin Aspart (novoLOG ASPART) SLIDING SCALE If C... ACHS SC 10/29/16 12:30 11/28/16 12:29 10/31/16 08:32 3 UNITS Silodosin (Rapaflo Cap) 8 mg HS PO 10/30/16 21:00 11/29/16 20:59 10/30/16 22:55 8 MG Insulin Glargine (Lantus Solostar Pen) SEE PROTOCOL TEXT BID SC 10/30/16 17:00 11/29/16 16:59 10/31/16 10:01 22 UNITS Miscellaneous Information (Consult Glycemic Management Pharmacy) 1 ea UD PRN N/A 10/30/16 13:00 11/29/16 12:59 Racepinephrine (Raccemic Epinephrine 2.25% 0.5ML Neb) 0.5 ml ONE PRN INH 10/30/16 18:15 Acetaminophen 1000 mg/Empty Bag 100 ml @ 400 mls/hr Q8H PRN IV 10/30/16 18:15 11/29/16 18:14 10/31/16 08:14 400 MLS/HR Hydromorphone HCl (Dilaudid Inj) 0.5mg IV for moder... Q3H PRN IV 10/30/16 18:15 11/13/16 18:14 10/31/16 08:05 0.5 MG Magnesium Hydroxide (Milk Of Magnesia Susp) 30 ml DAILY PRN PO 10/30/16 18:15 11/29/16 18:14 Docusate Sodium (coLACE CAP) 100 mg BID PO 10/30/16 21:00 11/29/16 20:59 10/31/16 09:56 100 MG Ondansetron HCl (Zofran Inj) 4 mg Q6 PRN IV 10/30/16 18:15 11/29/16 18:14 Cefazolin Sodium 1000 mg/Dextrose 55 ml @ 100 mls/hr Q8H IV 10/31/16 00:00 10/31/16 16:32 10/31/16 09:56 100 MLS/HR Lorazepam 0.5 mg/ Syringe 1 ml @ 1 mls/min Q8H PRN IV 10/30/16 18:15 11/29/16 18:14 Sodium Chloride 1,000 ml @ 80 mls/hr Q03H39H IV 10/30/16 18:07 10/31/16 18:06 10/31/16 08:04 80 MLS/HR Acetaminophen/ Hydrocodone Bitart ([place] 5/325 Tab) 1 tablet for pain scale ... Q4H PRN PO 10/30/16 18:15 11/13/16 18:14 Bisacodyl (Dulcolax Supp) 10 mg DAILY PRN [place] 11/01/16 06:00 12/01/16 05:59 Dexamethasone Sodium Phosphate 8 mg/Syringe 2 ml @ 1 mls/min ONE PRN IV 10/30/16 18:15 Naloxone HCl (Narcan Inj) 0.1 mg Q5M PRN IV 10/30/16 18:15 11/29/16 18:14 Aspirin (Ecotrin Tab) 81 mg HS PO 10/30/16 21:00 11/29/16 20:59 10/30/16 20:59 81 MG Nifedipine (Procardia Xl Tab) 90 mg QAM PO 10/31/16 09:00 11/30/16 08:59 10/31/16 09:57 90 MG Impression (1) ESRD (end stage renal disease) on dialysis (2) Concussion and edema of cervical spinal cord, initial encounter (3) Nasal bone fracture (4) Hypertension (5) Multiple sclerosis (6) Nasal laceration (7) Injury to ligament of cervical spine Mr. Bravo was admitted to the hospital 10/29 following a syncopal event. He completed outpatient dialysis without complication but upon leaving the facility fell and suffered injury to his cervical spine ligaments. He required C5 - C7 cervical discectomy w/ fusion 10/30/16. PMH: ESRD requiring MWF HD at [facility], multiple sclerosis, BPH, AODM, diverticulosis s/p partial colectomy with colostomy Recommendations END STAGE RENAL DISEASE: -- Dialysis notes from 10/30 reviewed. There were no complications -- Volume status and electrolyte balance are acceptable at this time. No acute indication for HD today HYPERTENSION: -- Blood pressure is acceptable today -- Continue Metoprolol, Nifedipine, Isosorbide ANEMIA: -- Monitor H&H. Will provide SANDRA w/ HD treatments ORTHO: -- Agree w/ transfer to medical floor and starting physical therapy if OK w/ orthopedics
--- NOTE | 2016-10-31 10:56 | Family Medicine Progress Note ---
Progress Note Date of Service Oct 31, 2016. Subjective Pt evaluation today including: conversation w/ patient, conversation w/ family , physical exam, chart review, lab review, review of studies, review of inpatient medication list Pain: pain improved PO Intake: clear liquid Voiding: no voiding problems Patient is s/p C5-C7 Anterior Cervical Discectomy and Fusion. He reports minimal pain and feels much improved. He had dialysis yesterday without complication. He denies CP, SOB, calf tenderness, fevers, chills, N/V Constitutional: + problem reported (face: nasal laceration), No fever, No chills Respiratory: No wheezing, No shortness of breath Cardiovascular: No chest pain, No edema, No palpitations Abdomen: No pain, No nausea, No vomiting Musculoskeletal: No swelling Male : No dysuria, No urinary frequency Skin: No rash, No itch Medications Current Inpatient Medications Medications (Trade) Dose Ordered Sig/Brendan Route Start Time Stop Time Status Last Admin Dose Admin Acetaminophen (Tylenol Tab) 650 mg Q4H PRN PO 10/29/16 01:15 11/28/16 01:14 Isosorbide Mononitrate (Imdur Ext Rel Tab) 30 mg QAM PO 10/29/16 09:00 11/28/16 08:59 10/31/16 09:57 30 MG Meclizine HCl (Antivert Tab) 25 mg DAILY PRN PO 10/29/16 01:15 11/28/16 01:14 Glucose (Glucose 40% Gel) UD PRN PO 10/29/16 01:30 11/28/16 01:29 Glucose (Glucose Chew Tab) 1 tabs UD PRN PO 10/29/16 01:30 11/28/16 01:29 Dextrose (Dextrose 50% 50ML Syringe) 50 ml UD PRN IV 10/29/16 01:30 11/28/16 01:29 Glucagon (Glucagon Inj) 1 mg UD PRN SQ 10/29/16 01:30 11/28/16 01:29 Hydralazine HCl (HydrALAZINE INJ) 10 mg Q4H PRN IV. 10/29/16 01:30 11/28/16 01:29 10/31/16 00:01 10 MG Ipratropium [place] (Atrovent 0.02% 0.5MG/2.5ML Neb) 0.5 mg Q2H PRN INH 10/29/16 03:45 11/28/16 03:44 Levalbuterol (Xopenex 1.25MG/ 0.5ML Neb) 1.25 mg Q2H PRN INH 10/29/16 03:45 11/28/16 03:44 Miscellaneous Information (Order Awaiting Action) 1 ea QS N/A 10/29/16 08:00 11/28/16 07:59 10/31/16 08:13 1 EA Metoprolol Succinate (Toprol Xl Tab) 100 mg BID PO 10/29/16 09:00 11/28/16 08:59 10/31/16 09:58 100 MG Vitamin B Complex/ Vit C/Folic Acid (Nephrocaps) 1 cap QAM PO 10/30/16 09:00 11/29/16 08:59 10/31/16 09:57 1 CAP Insulin Aspart (novoLOG ASPART) SLIDING SCALE If C... ACHS SC 10/29/16 12:30 11/28/16 12:29 10/31/16 08:32 3 UNITS Silodosin (Rapaflo Cap) 8 mg HS PO 10/30/16 21:00 11/29/16 20:59 10/30/16 22:55 8 MG Insulin Glargine (Lantus Solostar Pen) SEE PROTOCOL TEXT BID SC 10/30/16 17:00 11/29/16 16:59 10/31/16 10:01 22 UNITS Miscellaneous Information (Consult Glycemic Management Pharmacy) 1 ea UD PRN N/A 10/30/16 13:00 11/29/16 12:59 Racepinephrine (Raccemic Epinephrine 2.25% 0.5ML Neb) 0.5 ml ONE PRN INH 10/30/16 18:15 Acetaminophen 1000 mg/Empty Bag 100 ml @ 400 mls/hr Q8H PRN IV 10/30/16 18:15 11/29/16 18:14 10/31/16 08:14 400 MLS/HR Hydromorphone HCl (Dilaudid Inj) 0.5mg IV for moder... Q3H PRN IV 10/30/16 18:15 11/13/16 18:14 10/31/16 08:05 0.5 MG Magnesium Hydroxide (Milk Of Magnesia Susp) 30 ml DAILY PRN PO 10/30/16 18:15 11/29/16 18:14 Docusate Sodium (coLACE CAP) 100 mg BID PO 10/30/16 21:00 11/29/16 20:59 10/31/16 09:56 100 MG Ondansetron HCl (Zofran Inj) 4 mg Q6 PRN IV 10/30/16 18:15 11/29/16 18:14 Cefazolin Sodium 1000 mg/Dextrose 55 ml @ 100 mls/hr Q8H IV 10/31/16 00:00 10/31/16 16:32 10/31/16 09:56 100 MLS/HR Lorazepam 0.5 mg/ Syringe 1 ml @ 1 mls/min Q8H PRN IV 10/30/16 18:15 11/29/16 18:14 Sodium Chloride 1,000 ml @ 80 mls/hr [id number] IV 10/30/16 18:07 10/31/16 18:06 10/31/16 08:04 80 MLS/HR Acetaminophen/ Hydrocodone Bitart ([place] 5/325 Tab) 1 tablet for pain scale ... Q4H PRN PO 10/30/16 18:15 11/13/16 18:14 Bisacodyl (Dulcolax Supp) 10 mg DAILY PRN IN 11/01/16 06:00 12/01/16 05:59 Dexamethasone Sodium Phosphate 8 mg/Syringe 2 ml @ 1 mls/min ONE PRN IV 10/30/16 18:15 Naloxone HCl (Narcan Inj) 0.1 mg Q5M PRN IV 10/30/16 18:15 11/29/16 18:14 Aspirin (Ecotrin Tab) 81 mg HS PO 10/30/16 21:00 11/29/16 20:59 10/30/16 20:59 81 MG Nifedipine (Procardia Xl Tab) 90 mg QAM PO 10/31/16 09:00 11/30/16 08:59 10/31/16 09:57 90 MG Objective Vital Signs Date Time Temp Pulse Resp B/P (MAP) Pulse Ox O2 Delivery O2 Flow Rate FiO2 10/31/16 10:50 36.6 71 17 98 2.0 10/31/16 10:00 71 17 132/64 (86) 98 Nasal Cannula 10/31/16 09:00 72 14 136/69 (91) 98 Nasal Cannula 10/31/16 08:00 69 14 154/84 (107) 99 Nasal Cannula 10/31/16 08:00 97 Nasal Cannula 2.0 10/31/16 08:00 Nasal Cannula 10/31/16 07:53 70 16 97 Nasal Cannula 2.0 10/31/16 06:00 67 12 140/69 (92) 10/31/16 05:00 67 13 130/60 (83) 98 10/31/16 04:08 100 Nasal Cannula 4.0 10/31/16 04:00 71 13 136/68 (90) 98 10/31/16 04:00 36.6 71 13 136/68 (90) 98 10/31/16 03:52 69 12 98 Nasal Cannula 2.0 10/31/16 03:00 74 13 130/68 (88) 98 10/31/16 02:00 77 13 143/65 (91) 97 10/31/16 02:00 77 13 143/65 (91) 97 Nasal Cannula 4.0 10/31/16 01:00 86 13 148/66 (93) 93 Nasal Cannula 4.0 10/31/16 00:18 100 Nasal Cannula 4.0 10/31/16 00:00 75 10 187/79 (115) 96 10/31/16 00:00 36.6 75 12 187/79 (115) 96 Nasal Cannula 4.0 10/31/16 00:00 76 14 98 Nasal Cannula 2.0 10/30/16 23:00 78 12 163/82 (109) 97 10/30/16 22:00 77 14 168/76 (106) 96 Nasal Cannula 4.0 10/30/16 21:00 77 14 163/76 (105) 98 Nasal Cannula 4.0 10/30/16 20:20 84 14 98 Nasal Cannula 2.0 10/30/16 20:16 36.6 81 14 168/82 (110) 97 Nasal Cannula 4.0 10/30/16 20:00 100 Nasal Cannula 4.0 10/30/16 20:00 85 19 173/79 100 Nasal Cannula 4 10/30/16 19:50 36.5 80 14 169/70 99 Nasal Cannula 4 10/30/16 19:40 83 19 155/75 99 Mask 10 10/30/16 19:30 81 16 167/78 100 Mask 10 10/30/16 19:20 84 16 158/75 100 Mask 10 10/30/16 19:10 85 21 165/80 100 Mask 10 10/30/16 19:00 36.4 85 10 184/79 100 Mask 10 10/30/16 12:00 Room Air 10/30/16 10:58 36.6 73 18 165/78 (107) 96 Room Air Physical Exam General Appearance: WD/WN, no apparent distress Eyes: normal inspection, PERRL, EOMI Neck: supple, no carotid bruits, trachea midline Respiratory/Chest: lungs clear, normal breath sounds, no respiratory distress Cardiovascular: regular rate, rhythm, no murmur Abdomen: normal bowel sounds, non tender, soft Extremities: no pedal edema, no calf tenderness Neurologic/Psychiatric: alert, normal mood/affect Skin: warm/dry, no rash Laboratory Results Results Past 24 Hours Test 10/30/16 19:05 10/30/16 21:09 10/31/16 01:31 10/31/16 05:28 Range/Units Bedside Glucose 227 248 259 70-99 mg/dl White Blood Count 10.38 4.8-10.8 K/uL Red Blood Count 2.80 4.7-6.1 M/uL Hemoglobin 8.5 14.0-18.0 g/dL Hematocrit 24.9 42-52 % Mean Corpuscular Volume 88.9 80-100 fL Mean Corpuscular Hemoglobin 30.4 25-34 pg Mean Corpuscular Hemoglobin Concent 34.1 32-36 g/dl Platelet Count 180 130-400 K/uL Mean Platelet Volume 9.9 7.4-10.4 fL Neutrophils (%) (Auto) 84.6 % Lymphocytes (%) (Auto) 7.3 % Monocytes (%) (Auto) 7.8 % Eosinophils (%) (Auto) 0.0 % Basophils (%) (Auto) 0.0 % Neutrophils # (Auto) 8.78 1.4-6.5 K/uL Lymphocytes # (Auto) 0.76 1.2-3.4 K/uL Monocytes # (Auto) 0.81 0.11-0.59 K/uL Eosinophils # (Auto) 0.00 0-0.5 K/uL Basophils # (Auto) 0.00 0-0.2 K/uL RDW Standard Deviation 48.4 36.4-46.3 fL RDW Coefficient of Variation 14.7 11.5-14.5 % Immature Granulocyte % (Auto) 0.3 % Immature Granulocyte # (Auto) 0.03 0.00-0.02 K/uL Basophilic Stippling 1+ Anisocytosis PRESENT Prothrombin Time 11.4 9.0-12.0 SECONDS Prothromb Time International Ratio 1.1 0.9-1.1 Activated Partial Thromboplast Time 27.7 21.0-31.0 SECONDS Partial Thromboplastin Ratio 1.1 Sodium Level 137 136-145 mmol/L Potassium Level 4.0 3.5-5.1 mmol/L Chloride Level 104 98-107 mmol/L Carbon Dioxide Level 24 21-32 mmol/L Anion Gap 9.0 3-11 mmol/L Blood Urea Nitrogen 34 7-18 mg/dl Creatinine 3.70 0.60-1.40 mg/dl Est Creatinine Clear Calc Drug Dose 20.9 ml/min Estimated GFR () 18.3 Estimated GFR (Non- 15.8 BUN/Creatinine Ratio 9.1 10-20 Random Glucose 203 70-99 mg/dl Calcium Level 8.1 8.5-10.1 mg/dl Magnesium Level 2.0 1.8-2.4 mg/dl Total Bilirubin 0.2 0.2-1 mg/dl Direct Bilirubin < 0.1 0-0.2 mg/dl Aspartate Amino Transf (AST/SGOT) 99 15-37 U/L Alanine Aminotransferase (ALT/SGPT) 108 12-78 U/L Alkaline Phosphatase 209 45-117 U/L Total Protein 5.7 6.4-8.2 gm/dl Albumin 2.2 3.4-5.0 gm/dl Test 10/31/16 07:49 10/31/16 11:55 Range/Units Bedside Glucose 209 228 70-99 mg/dl Microbiology Results 10/30/16 MRSA DNA Surveillance Screen - Final, Complete Specimen Negative for MRSA by DNA Probe Assessment and Plan 66 yo M with hx of MS and ESRD presenting with HX of syncope/Fall resulting in injury to Cspine C5-7, s/p C5-C7 Anterior Cervical Discectomy and Fusion by Dr. Pichardo (10/30) and nasal fx/laceration. NO acute events, Patient tolerated procedure. S/P C5-C7 Anterior Cervical Discectomy and Fusion -tolerated procedure - pain control - Decadron per Ortho HTN -BP controlled - c/w Metoprolol, Nifedipine, Isosorbide Hx Fall, C-spine injury - s/p Cervical discectomy, fusion - management per Ortho Elevated LFTS - Chronic, mild - Continue to monitor ESRD -Nephrology on board -Had Dialysis 10/30, tolerated well -Electrolytes appropriate - c/w current dialysis regimen T2DM: - Glycemic consult Anemia - likely due to ESRD - continue monitoring h/H - Per Nephrology, will get Erythropoietin stim. agents during dialysis Disposition: Transfer to Floor Continued [facility] stay due to: multiple IV medications needed Discharge planning: uncertain Resident Tracking Resident Involvement: Resident Care Provided Care Provided: Adult Hospital Medicine Reviewed: Pt Seen/Exam by Me History did well overnight in the ICU. pain controlled with medications. Constitutional: denies: fever Respiratory: negative: short of breath Cardiovascular: denies chest pain Gastrointestinal/Abdominal: negative: abdominal pain General Appearance: no apparent distress Neck: other (hard neck collar +) Respiratory: lungs clear, no respiratory distress Cardiovascular: regular rate, rhythm Neurologic/Psychiatric: alert, oriented x 3 Assessment/Plan Resident Physician Supervision Note: I was present with Dr. Dennis in bedside. I verified the nelson history and physical, reviewed labs and image studies, discussed the case with the resident and agree with the findings and care plan.
--- NOTE | 2016-10-31 13:27 | Pharmacy Progress Note ---
Glycemic Control Progress Note Date of Service Oct 31, 2016. Scope Glycemic Pharmacist consulted for glycemic control to write orders per [facility] inpatient glycemic control protocol. Objective Accuchecks BSG (last 24hrs): Test 10/30/16 19:05 10/30/16 21:09 10/31/16 01:31 10/31/16 05:28 Bedside Glucose 227 mg/dl (70-99) 248 mg/dl (70-99) 259 mg/dl (70-99) Random Glucose 203 mg/dl (70-99) Test 10/31/16 07:49 10/31/16 11:55 Bedside Glucose 209 mg/dl (70-99) 228 mg/dl (70-99) HbA1c: Test 10/29/16 08:33 Hemoglobin A1c 6.4 % (4.5-5.6) H Recent Pertinent Medications Outpatient Anti-diabetic Regimen: * Lantus 60 units daily * Patient's A1c = 6.4% 10/29/16 * However, this result is likely somewhat unreliable in ESRD patients d/t interactions between the A1c analyzing technique and high levels of urea in ESRD , reduced RBC life span, iron deficiency anemia, and EPO administration. HbA1c > 7.5% in ESRD patient may overestimate the extent of hyperglycemia in ESRD patients. The patient is currently receiving: * Basal insulin: Lantus per "sliding scale" * Hold if BSG less than 150 * 15 units if BSG 151-180 * 22 units if BSG > 180 * Correctional Insulin: Novolog Correction per scale ACHS Goal Range: Low 100 mg/dL - High 150 mg/dL Correction Factor: 25 mg/dL/unit * Prandial insulin: Per carb ratio of 1 unit per 10 grams CHO consumed Risk Factors for Insulin Resistance: * Steroids: Decadron 4 mg IV q6h - discontinued after 0800 dose today * Recent Surgery: POD1 for C-spine surgery * Diet: Type 2 DM Assessment & Plan ASSESSMENT: * See progress note from 10/30 for more background info, in short: * Pt receiving SQ basal bolus insulin regimen for hyperglycemia secondary to baseline DM (outpatient regimen on hold), dextrose IVF, recent surgery, and steroids * Patient is currently receiving an average of 17 units of insulin per day * 10 units of basal insulin yesterday * 7 units of prandial/correctional insulin * BSGs ranging 162 - 259 mg/dl over the past 24hrs * Although fasting BSG and post prandial BSGs are elevated, no changes at this time, as patient received last dose of dexamethasone this morning. I will place Lantus on hold after PM dose tonight, as basal needs will decrease as steroids decrease, and re-evaluate in AM. PLAN FOR INPATIENT GLYCEMIC CONTROL: * Continue Lantus per "sliding scale" - HOLD AFTER PM DOSE TODAY, [facility] TO RE- EVALUATE IN AM * Hold if BSG less than 150 * 15 units if BSG 151-180 * 22 units if BSG > 180 * Continue Novolog ACHS or q6h if NPO * Continue correction factor of 25 mg/dl/unit * Continue carb ratio of 1 unit per 10 grams CHO consumed * Continue goal range of Low 100 mg/dL - High 150 mg/dL * Please note that the plan above was derived based on current level of insulin resistance and hospital stress. These recommendations are appropriate for inpatient admission only. Plan of care upon discharge will need to be reassessed to avoid potential outpatient hypo/hyperglycemia. Thank you.
[2016-10-31] MEDS: ASPIRIN 81 MG ECTAB PO SCH (21:04)
[2016-11-01] VITALS (14 sets, daily range): BP systolic 92–135; BP diastolic 47–67; PULSE 58–68; TEMP 36.3–36.6; O2SAT 95–98
[2016-11-01] MEDS ORDERED: BISACODYL 10 MG SUPP PR PRN (06:00)
[2016-11-01 06:12] LABS: HEMATOCRIT 24.9 % (42-52); MEAN CELL VOLUME 88.9 fL (80-100); MEAN CORPUSCULAR HGB CONC 33.7 g/dl (32-36); MEAN PLATELET VOLUME 10.3 fL (7.4-10.4); PLATELET COUNT 158 K/uL (130-400); WHITE BLOOD COUNT 8.08 K/uL (4.8-10.8)
[2016-11-01 06:58] LABS: BUN/CREATININE RATIO 11.1 (10-20); CALCIUM 8.2 mg/dl (8.5-10.1); CREATININE 5.4 mg/dl (0.60-1.40); POTASSIUM 3.7 mmol/L (3.5-5.1)
[2016-11-01] MEDS: HYDROmorphone INJ 0.5 MG/0.5 ML SYR IV PRN (08:18)
[2016-11-01] MEDS: INSULIN ASPART 100 UNITS/ML 3 ML PEN SC SCH ×4 (08:34→21:00)
[2016-11-01] MEDS: NEPHROCAPS PO SCH (09:08)
[2016-11-01] MEDS: NIFEdipine 30 MG CR TAB PO SCH (09:08)
[2016-11-01] MEDS: METOPROLOL SUCC 50MG EXT REL TAB PO SCH ×2 (09:08→21:23)
[2016-11-01] MEDS: DOCUSATE SODIUM 100 MG CAP PO SCH ×2 (09:08→21:23)
[2016-11-01] MEDS: ISOSORBIDE MONONITRATE 30 MG TABCR PO SCH (09:08)
--- NOTE | 2016-11-01 10:19 | Discharge Instructions ---
Discharge Instructions Date of Service Nov 01, 2016. Admission Reason for Admission: Concussion And Edema Of Cervical Spinal Cord, Discharge Discharge Diagnosis / Problem: same Discharge Goals Goal(s): Improve function Activity Recommendations Activity Limitations: as noted below Lifting Limitations: no more than 5 pounds Exercise/Sports Limitations: until after follow-up appointment May Resume Sexual Activity: after follow-up appointment Shower/Bathe: keep incision dry Driving or Machine Use: . Instructions / Follow-Up Instructions / Follow-Up Rehab transfer 11/02/. Dressing changes every 72 hours. Keep wounds clean. Please call [phone] (Lauro and Saniya Alatorre) and get into see Dr. Pichardo in 10 days. Current Hospital Diet Patient's current hospital diet: Renal Diet, Diabetes Type 2 Diet, Clear Liquid Diet; advance as tolerated. Discharge Diet Recommended Diet: Diabetes Type 2 Diet Procedures Procedures Performed: C5-C7 Anterior Cervical Discectomy and Fusion with right iliac crest bone graft , use of spinal cord monitoring Pending Studies Studies pending at discharge: no Laboratory Results Hemoglobin A1c Test 10/29/16 08:33 Range/Units Estimated Average Glucose 137 mg/dl Hemoglobin A1c 6.4 H 4.5-5.6 % Medical Emergencies . Who to Call and When: Medical Emergencies: If at any time you feel your situation is an emergency, please call 911 immediately. . Non-Emergent Contact Non-Emergency issues call your: Surgeon . "Provider Documentation" section prepared by Rivera Pichardo. . VTE Core Measure Inpt VTE Proph given/why not?: SCD's, Treatment not indicated
[2016-11-01] MEDS: HYDROCODONE/ACETAMOPHEN 5/325MG TAB PO PRN ×3 (10:33→21:27)
--- NOTE | 2016-11-01 10:53 | Nephrology Progress Note ---
Nephrology Progress Note Date of Service Nov 01, 2016. Chief Complaint Follow up evaluation of this patient w/ ESRD on HD Subjective Mr. Bravo was seen & examined in is hospital room this morning. His was present at bedside. No complications overnight. Mr. Bravo hopes to have HD tomorrow morning and then transfer to [facility]. His was provided with a Rx to obtain a rolling walker with seat and hand brakes. Review of Systems Constitutional: No fever Cardiovascular: No chest pain Respiratory: No dyspnea at rest Abdomen: No pain, No nausea, No vomiting Extremities: No leg edema A complete review of systems was performed. Pertinent positives are noted above. All other systems are negative. Vital Signs Last 8 Hrs Date Time Temp Pulse Resp B/P (MAP) Pulse Ox O2 Delivery O2 Flow Rate FiO2 11/01/16 07:57 36.5 68 18 128/61 (83) 97 Room Air 11/01/16 07:09 62 16 97 Room Air 11/01/16 04:00 36.4 60 18 122/59 97 Room Air 11/01/16 03:05 59 16 95 Room Air Last Recorded Weight Weight (Kilograms): 88.900 Physical Exam General Appearance: no apparent distress Head: + evidence of trama Eyes: PERRL, EOMI Neck: no adenopathy Respiratory/Chest: lungs clear, no respiratory distress Cardiovascular: regular rate, rhythm Abdomen/GI: normal bowel sounds, non tender, soft Extremities/Musculoskelatal: no pedal edema, + pertinent finding (AVF + thrill. [place] have been removed from surgical incision) Neurologic/Psych: alert, oriented x 3 Family History Hypertension Social History Smoking Status: Never smoker Smokeless Tobacco Use: No Alcohol Use: none Drug Use: none Marital Status: Housing Status: lives with family Occupation: retired Laboratory Results Past 24 Hours 11/01/16 05:31 11/01/16 05:31 Test 10/31/16 11:55 10/31/16 17:20 10/31/16 20:37 11/01/16 05:31 Bedside Glucose 228 mg/dl (70-99) 190 mg/dl (70-99) 216 mg/dl (70-99) Red Blood Count 2.80 M/uL (4.7-6.1) Mean Corpuscular Volume 88.9 fL (80-100) Mean Corpuscular Hemoglobin 30.0 pg (25-34) Mean Corpuscular Hemoglobin Concent 33.7 g/dl (32-36) RDW Standard Deviation 49.0 fL (36.4-46.3) RDW Coefficient of Variation 14.9 % (11.5-14.5) Mean Platelet Volume 10.3 fL (7.4-10.4) Anion Gap 10.0 mmol/L (3-11) Est Creatinine Clear Calc Drug Dose 14.4 ml/min Estimated GFR () 11.6 Estimated GFR (Non- 10.0 BUN/Creatinine Ratio 11.1 (10-20) Calcium Level 8.2 mg/dl (8.5-10.1) Test 11/01/16 07:22 Bedside Glucose 99 mg/dl (70-99) Allergies Coded Allergies: No Known Allergies (Verified , 10/27/16) Medications Current Inpatient Medications Medications (Trade) Dose Ordered Sig/Brendan Route Start Time Stop Time Status Last Admin Dose Admin Acetaminophen (Tylenol Tab) 650 mg Q4H PRN PO 10/29/16 01:15 11/28/16 01:14 Isosorbide Mononitrate (Imdur Ext Rel Tab) 30 mg QAM PO 10/29/16 09:00 11/28/16 08:59 11/01/16 09:08 30 MG Meclizine HCl (Antivert Tab) 25 mg DAILY PRN PO 10/29/16 01:15 11/28/16 01:14 Glucose (Glucose 40% Gel) UD PRN PO 10/29/16 01:30 11/28/16 01:29 Glucose (Glucose Chew Tab) 1 tabs UD PRN PO 10/29/16 01:30 11/28/16 01:29 Dextrose (Dextrose 50% 50ML Syringe) 50 ml UD PRN IV 10/29/16 01:30 11/28/16 01:29 Glucagon (Glucagon Inj) 1 mg UD PRN SQ 10/29/16 01:30 11/28/16 01:29 Hydralazine HCl (HydrALAZINE INJ) 10 mg Q4H PRN IV. 10/29/16 01:30 11/28/16 01:29 10/31/16 00:01 10 MG Ipratropium [place] (Atrovent 0.02% 0.5MG/2.5ML Neb) 0.5 mg Q2H PRN INH 10/29/16 03:45 11/28/16 03:44 Levalbuterol (Xopenex 1.25MG/ 0.5ML Neb) 1.25 mg Q2H PRN INH 10/29/16 03:45 11/28/16 03:44 Miscellaneous Information (Order Awaiting Action) 1 ea QS N/A 10/29/16 08:00 11/28/16 07:59 10/31/16 08:13 1 EA Metoprolol Succinate (Toprol Xl Tab) 100 mg BID PO 10/29/16 09:00 11/28/16 08:59 11/01/16 09:08 100 MG Vitamin B Complex/ Vit C/Folic Acid (Nephrocaps) 1 cap QAM PO 10/30/16 09:00 11/29/16 08:59 11/01/16 09:08 1 CAP Insulin Aspart (novoLOG ASPART) SLIDING SCALE If C... ACHS SC 10/29/16 12:30 11/28/16 12:29 11/01/16 08:34 3 UNITS Silodosin (Rapaflo Cap) 8 mg HS PO 10/30/16 21:00 11/29/16 20:59 10/31/16 21:04 8 MG Insulin Glargine (Lantus Solostar Pen) SEE PROTOCOL TEXT BID SC 10/30/16 17:00 11/29/16 16:59 Future Hold 10/31/16 21:16 22 UNITS Miscellaneous Information (Consult Glycemic Management Pharmacy) 1 ea UD PRN N/A 10/30/16 13:00 11/29/16 12:59 Racepinephrine (Raccemic Epinephrine 2.25% 0.5ML Neb) 0.5 ml ONE PRN INH 10/30/16 18:15 Acetaminophen 1000 mg/Empty Bag 100 ml @ 400 mls/hr Q8H PRN IV 10/30/16 18:15 11/29/16 18:14 10/31/16 08:14 400 MLS/HR Hydromorphone HCl (Dilaudid Inj) 0.5mg IV for moder... Q3H PRN IV 10/30/16 18:15 11/13/16 18:14 11/01/16 08:18 0.5 MG Magnesium Hydroxide (Milk Of Magnesia Susp) 30 ml DAILY PRN PO 10/30/16 18:15 11/29/16 18:14 Docusate Sodium (coLACE CAP) 100 mg BID PO 10/30/16 21:00 11/29/16 20:59 11/01/16 09:08 100 MG Ondansetron HCl (Zofran Inj) 4 mg Q6 PRN IV 10/30/16 18:15 11/29/16 18:14 Lorazepam 0.5 mg/ Syringe 1 ml @ 1 mls/min Q8H PRN IV 10/30/16 18:15 11/29/16 18:14 Acetaminophen/ Hydrocodone Bitart ([place] 5/325 Tab) 1 tablet for pain scale ... Q4H PRN PO 10/30/16 18:15 11/13/16 18:14 11/01/16 10:33 2 TAB Bisacodyl (Dulcolax Supp) 10 mg DAILY PRN [place] 11/01/16 06:00 12/01/16 05:59 Dexamethasone Sodium Phosphate 8 mg/Syringe 2 ml @ 1 mls/min ONE PRN IV 10/30/16 18:15 Naloxone HCl (Narcan Inj) 0.1 mg Q5M PRN IV 10/30/16 18:15 11/29/16 18:14 Aspirin (Ecotrin Tab) 81 mg HS PO 10/30/16 21:00 11/29/16 20:59 10/31/16 21:04 81 MG Nifedipine (Procardia Xl Tab) 90 mg QAM PO 10/31/16 09:00 11/30/16 08:59 11/01/16 09:08 90 MG Impression (1) ESRD (end stage renal disease) on dialysis (2) Concussion and edema of cervical spinal cord, initial encounter (3) Nasal bone fracture (4) Hypertension (5) Multiple sclerosis (6) Nasal laceration (7) Injury to ligament of cervical spine Mr. Bravo was admitted to the hospital 10/29 following a syncopal event. He completed outpatient dialysis without complication but upon leaving the facility fell and suffered injury to his cervical spine ligaments. He required C5 - C7 cervical discectomy w/ fusion 10/30/16. PMH: ESRD requiring MWF HD at [facility], multiple sclerosis, BPH, AODM, diverticulosis s/p partial colectomy with colostomy Recommendations END STAGE RENAL DISEASE: -- Volume status and electrolyte balance are acceptable at this time. No acute indication for HD today -- Orders entered into EMR for heparin free HD in am. left at acute HD unit requesting 1st shift HD tomorrow -- L upper arm incision richard removed to allow for MRI. Will ask vascular surgery to assess incision tomorrow am prior to transfer to [facility] -- Order placed to have staff auditor change steri-strips on L upper arm incision daily x 10 days HYPERTENSION: -- Blood pressure is acceptable today -- Continue Metoprolol, Nifedipine, Isosorbide ANEMIA: -- Monitor H&H. Will provide SANDRA w/ HD treatments OTHER: -- Will ask social work specialist to assist w/ obtaining a rolling walker with seat and hand brakes for the patient -- Mrs. Bravo provided w/ Rx this am for the above rolling walker
--- NOTE | 2016-11-01 11:46 | Family Medicine Progress Note ---
Progress Note Date of Service Nov 01, 2016. Subjective Pt evaluation today including: conversation w/ patient, conversation w/ family , physical exam, chart review, lab review, review of studies, review of inpatient medication list Pain: pain at Left hip , minimal pain in neck PO Intake: adequate Voiding: no voiding problems Constitutional: No fever, No chills Respiratory: No cough, No wheezing, No shortness of breath Cardiovascular: No chest pain, No edema, No palpitations Abdomen: No pain, No nausea, No vomiting Musculoskeletal: + joint pain, No calf pain Male : No dysuria, No urinary frequency Skin: No rash, No itch Medications Current Inpatient Medications Medications (Trade) Dose Ordered Sig/Brendan Route Start Time Stop Time Status Last Admin Dose Admin Acetaminophen (Tylenol Tab) 650 mg Q4H PRN PO 10/29/16 01:15 11/28/16 01:14 Isosorbide Mononitrate (Imdur Ext Rel Tab) 30 mg QAM PO 10/29/16 09:00 11/28/16 08:59 11/01/16 09:08 30 MG Meclizine HCl (Antivert Tab) 25 mg DAILY PRN PO 10/29/16 01:15 11/28/16 01:14 Glucose (Glucose 40% Gel) UD PRN PO 10/29/16 01:30 11/28/16 01:29 Glucose (Glucose Chew Tab) 1 tabs UD PRN PO 10/29/16 01:30 11/28/16 01:29 Dextrose (Dextrose 50% 50ML Syringe) 50 ml UD PRN IV 10/29/16 01:30 11/28/16 01:29 Glucagon (Glucagon Inj) 1 mg UD PRN SQ 10/29/16 01:30 11/28/16 01:29 Hydralazine HCl (HydrALAZINE INJ) 10 mg Q4H PRN IV. 10/29/16 01:30 11/28/16 01:29 10/31/16 00:01 10 MG Ipratropium [place] (Atrovent 0.02% 0.5MG/2.5ML Neb) 0.5 mg Q2H PRN INH 10/29/16 03:45 11/28/16 03:44 Levalbuterol (Xopenex 1.25MG/ 0.5ML Neb) 1.25 mg Q2H PRN INH 10/29/16 03:45 11/28/16 03:44 Miscellaneous Information (Order Awaiting Action) 1 ea QS N/A 10/29/16 08:00 11/28/16 07:59 10/31/16 08:13 1 EA Metoprolol Succinate (Toprol Xl Tab) 100 mg BID PO 10/29/16 09:00 11/28/16 08:59 11/01/16 09:08 100 MG Vitamin B Complex/ Vit C/Folic Acid (Nephrocaps) 1 cap QAM PO 10/30/16 09:00 11/29/16 08:59 11/01/16 09:08 1 CAP Insulin Aspart (novoLOG ASPART) SLIDING SCALE If C... ACHS SC 10/29/16 12:30 11/28/16 12:29 11/01/16 08:34 3 UNITS Silodosin (Rapaflo Cap) 8 mg HS PO 10/30/16 21:00 11/29/16 20:59 10/31/16 21:04 8 MG Insulin Glargine (Lantus Solostar Pen) SEE PROTOCOL TEXT BID SC 10/30/16 17:00 11/29/16 16:59 Future Hold 10/31/16 21:16 22 UNITS Miscellaneous Information (Consult Glycemic Management Pharmacy) 1 ea UD PRN N/A 10/30/16 13:00 11/29/16 12:59 Racepinephrine (Raccemic Epinephrine 2.25% 0.5ML Neb) 0.5 ml ONE PRN INH 10/30/16 18:15 Acetaminophen 1000 mg/Empty Bag 100 ml @ 400 mls/hr Q8H PRN IV 10/30/16 18:15 11/29/16 18:14 10/31/16 08:14 400 MLS/HR Hydromorphone HCl (Dilaudid Inj) 0.5mg IV for moder... Q3H PRN IV 10/30/16 18:15 11/13/16 18:14 11/01/16 08:18 0.5 MG Magnesium Hydroxide (Milk Of Magnesia Susp) 30 ml DAILY PRN PO 10/30/16 18:15 11/29/16 18:14 Docusate Sodium (coLACE CAP) 100 mg BID PO 10/30/16 21:00 11/29/16 20:59 11/01/16 09:08 100 MG Ondansetron HCl (Zofran Inj) 4 mg Q6 PRN IV 10/30/16 18:15 11/29/16 18:14 Lorazepam 0.5 mg/ Syringe 1 ml @ 1 mls/min Q8H PRN IV 10/30/16 18:15 11/29/16 18:14 Acetaminophen/ Hydrocodone Bitart ([place] 5/325 Tab) 1 tablet for pain scale ... Q4H PRN PO 10/30/16 18:15 11/13/16 18:14 11/01/16 10:33 2 TAB Bisacodyl (Dulcolax Supp) 10 mg DAILY PRN [place] 11/01/16 06:00 12/01/16 05:59 Dexamethasone Sodium Phosphate 8 mg/Syringe 2 ml @ 1 mls/min ONE PRN IV 10/30/16 18:15 Naloxone HCl (Narcan Inj) 0.1 mg Q5M PRN IV 10/30/16 18:15 11/29/16 18:14 Aspirin (Ecotrin Tab) 81 mg HS PO 10/30/16 21:00 11/29/16 20:59 10/31/16 21:04 81 MG Nifedipine (Procardia Xl Tab) 90 mg QAM PO 10/31/16 09:00 11/30/16 08:59 11/01/16 09:08 90 MG Epoetin [place]ammad (Procrit Inj) 10,000 units TODAY@0600 IV. 11/02/16 06:00 11/02/16 23:59 Paricalcitol (Zemplar Inj) 3 mcg TODAY@0600 IV. 11/02/16 06:00 11/02/16 23:59 Heparin Sodium (Porcine) (No Heparin In Dialysis) 1 ea TODAY@0600 N/A 11/02/16 06:00 11/02/16 23:59 Objective Vital Signs Date Time Temp Pulse Resp B/P (MAP) Pulse Ox O2 Delivery O2 Flow Rate FiO2 11/01/16 11:26 61 16 96 Room Air 11/01/16 11:24 36.5 58 17 92/50 (64) 98 Room Air 11/01/16 08:00 Room Air 11/01/16 07:57 36.5 68 18 128/61 (83) 97 Room Air 11/01/16 07:09 62 16 97 Room Air 11/01/16 04:00 36.4 60 18 122/59 97 Room Air 11/01/16 03:05 59 16 95 Room Air 11/01/16 00:00 Room Air 11/01/16 00:00 36.3 64 16 135/67 98 Room Air 10/31/16 23:25 60 16 95 Room Air 10/31/16 20:45 36.3 66 16 137/65 96 Room Air 10/31/16 19:22 63 16 96 Room Air 10/31/16 18:45 36.4 65 16 120/61 97 Room Air 10/31/16 16:40 Nasal Cannula 2.0 10/31/16 15:16 16 99 Nasal Cannula 2.0 10/31/16 15:03 36.4 64 16 99/54 (69) 98 Room Air 10/31/16 14:45 36.4 62 16 111/63 96 Nasal Cannula 2.0 10/31/16 12:45 36.5 65 18 109/63 99 Nasal Cannula 2.0 10/31/16 12:25 99 Physical Exam General Appearance: WD/WN, no apparent distress Eyes: PERRL, EOMI Neck: supple, no adenopathy, trachea midline, + pertinent finding (neck brace in place) Respiratory/Chest: lungs clear, normal breath sounds, no respiratory distress, no accessory muscle use Cardiovascular: regular rate, rhythm, no murmur Abdomen: normal bowel sounds, non tender, soft Extremities: no pedal edema, no calf tenderness Neurologic/Psychiatric: alert, normal mood/affect Skin: normal color, warm/dry Laboratory Results Results Past 24 Hours Test 10/31/16 17:20 10/31/16 20:37 11/01/16 05:31 11/01/16 07:22 Range/Units Bedside Glucose 190 216 99 70-99 mg/dl White Blood Count 8.08 4.8-10.8 K/uL Red Blood Count 2.80 4.7-6.1 M/uL Hemoglobin 8.4 14.0-18.0 g/dL Hematocrit 24.9 42-52 % Mean Corpuscular Volume 88.9 80-100 fL Mean Corpuscular Hemoglobin 30.0 25-34 pg Mean Corpuscular Hemoglobin Concent 33.7 32-36 g/dl RDW Standard Deviation 49.0 36.4-46.3 fL RDW Coefficient of Variation 14.9 11.5-14.5 % Platelet Count 158 130-400 K/uL Mean Platelet Volume 10.3 7.4-10.4 fL Sodium Level 135 136-145 mmol/L Potassium Level 3.7 3.5-5.1 mmol/L Chloride Level 100 98-107 mmol/L Carbon Dioxide Level 25 21-32 mmol/L Anion Gap 10.0 3-11 mmol/L Blood Urea Nitrogen 60 7-18 mg/dl Creatinine 5.40 0.60-1.40 mg/dl Est Creatinine Clear Calc Drug Dose 14.4 ml/min Estimated GFR () 11.6 Estimated GFR (Non- 10.0 BUN/Creatinine Ratio 11.1 10-20 Random Glucose 94 70-99 mg/dl Calcium Level 8.2 8.5-10.1 mg/dl Test 11/01/16 12:11 Range/Units Bedside Glucose 101 70-99 mg/dl Assessment and Plan 66 yo M with hx of MS and ESRD presenting with HX of syncope/Fall resulting in injury to Cspine C5-7, s/p C5-C7 Anterior Cervical Discectomy and Fusion by Dr. Pichardo (10/30) and nasal fx/laceration. NO acute events, Patient tolerated procedure. S/P C5-C7 Anterior Cervical Discectomy and Fusion -tolerated procedure - pain control -Advance diet as tolerated -IV fluids D/C'd per Ortho Sx Right hand pain - Persistent pain. Xray has been neg. tylenol/norco prn HTN -BP controlled - c/w Metoprolol, Nifedipine, Isosorbide Hx Fall, C-spine injury, Nasal Laceration - s/p Cervical discectomy, fusion - management per Ortho -will need suture removal at discharge or at rehab Elevated LFTS - Chronic, mild - Continue to monitor ESRD -Nephrology on board -Had Dialysis 10/30, tolerated well -Electrolytes appropriate - c/w current dialysis regimen -scheduled for dialysis tmr -- L upper arm incision richard removed prior to MRI. Per Nephrology: Vasc sx consulted to assess incision prior to d/c T2DM: - Glycemic consult Anemia - likely due to ESRD - continue monitoring H/H - Per Nephrology, will get Erythropoietin stim. agents during dialysis Disposition: - awaiting placement at [facility], F/u with Case management Continued [facility] stay due to: home environment unsafe for pt Discharge planning: rehab hospital Resident Tracking Resident Involvement: Resident Care Provided Care Provided: Adult Hospital Medicine Reviewed: Pt Seen/Exam by Me History continues to have right hand pain. also having pain in the hip at the site where bone graft was taken. Constitutional: denies: fever Respiratory: negative: short of breath Cardiovascular: denies chest pain Gastrointestinal/Abdominal: negative: abdominal pain General Appearance: no apparent distress Respiratory: lungs clear, no respiratory distress Cardiovascular: regular rate, rhythm Neurologic/Psychiatric: alert, oriented x 3 Skin Characteristics: warm/dry Assessment/Plan Resident Physician Supervision Note: I was present with Dr. Dennis in bedside. I verified the nelson history and physical, reviewed labs and image studies, discussed the case with the resident and agree with the findings and care plan.
[2016-11-01] MEDS: INSULIN GLARGINE SOLOSTAR 100 UNITS/ML 3 ML PEN SC SCH (21:00)
[2016-11-01] MEDS: ASPIRIN 81 MG ECTAB PO SCH (21:23)
[2016-11-01] MEDS: ACETAMINOPHEN 325 MG TAB PO PRN (23:27)
[2016-11-02] VITALS (32 sets, daily range): BP systolic 114–167; BP diastolic 54–82; PULSE 65–81; TEMP 36.4–36.9; O2SAT 93–99
[2016-11-02] MEDS: HYDROCODONE/ACETAMOPHEN 5/325MG TAB PO PRN ×2 (04:04→21:37)
[2016-11-02 05:32] LABS: HEMATOCRIT 25.6 % (42-52); MEAN CELL VOLUME 87.7 fL (80-100); MEAN CORPUSCULAR HEMOGLOBIN 29.8 pg (25-34); MEAN PLATELET VOLUME 9.8 fL (7.4-10.4); PLATELET COUNT 175 K/uL (130-400); RED BLOOD COUNT 2.92 M/uL (4.7-6.1)
[2016-11-02] MEDS ORDERED: EPOETIN ALFA 10,000 UNITS/ML VIAL IV. SCH (06:00)
[2016-11-02] MEDS ORDERED: PARICALCITOL 5 MCG/ML VIAL (ZEMPLAR) IV. SCH (06:00)
[2016-11-02 06:04] LABS: BUN/CREATININE RATIO 11.6 (10-20); CREATININE 6.8 mg/dl (0.60-1.40); POTASSIUM 3.6 mmol/L (3.5-5.1)
[2016-11-02] MEDS: HYDROmorphone INJ 0.5 MG/0.5 ML SYR IV PRN ×2 (06:06→16:23)
--- NOTE | 2016-11-02 07:57 | Anesthesiology Progress Note ---
Anesthesia Post Op Note Date & Time Nov 02, 2016 at 07:56 Vital Signs Vital Signs Past 12 Hours Date Time Temp Pulse Resp B/P (MAP) Pulse Ox O2 Delivery O2 Flow Rate FiO2 11/02/16 07:07 67 12 97 Room Air 11/02/16 06:33 36.7 69 14 114/58 (76) 97 Room Air 11/02/16 04:00 36.5 69 16 133/65 96 Room Air 11/02/16 03:28 65 16 93 Room Air 11/02/16 00:00 Room Air 11/02/16 00:00 36.4 16 119/67 97 Room Air 11/01/16 23:41 60 16 95 Room Air 11/01/16 23:15 36.5 64 14 130/57 (81) 96 Room Air 11/01/16 21:21 68 131/57 (81) Notes Mental Status: alert / awake / arousable, participated in evaluation Pt Amnestic to Procedure: Yes Nausea / Vomiting: adequately controlled Pain: adequately controlled Airway Patency, RR, SpO2: stable & adequate BP & HR: stable & adequate Hydration State: stable & adequate Anesthetic Complications: no major complications apparent
[2016-11-02] MEDS: INSULIN ASPART 100 UNITS/ML 3 ML PEN SC SCH ×4 (08:09→21:00)
[2016-11-02] MEDS: DOCUSATE SODIUM 100 MG CAP PO SCH ×2 (08:11→21:25)
[2016-11-02] MEDS: NEPHROCAPS PO SCH (08:13)
--- NOTE | 2016-11-02 08:17 | Progress Note ---
Subjective Date of Service: Nov 02, 2016. Subjective Pt evaluation today including: conversation w/ patient, conversation w/ family Voiding: no voiding problems (Stable for [facility] when bed available) Problem List Medical Problems: (1) Abnormal LFTs (liver function tests) Status: Chronic (2) BPH (benign prostatic hyperplasia) Status: Chronic (3) Cervical disc herniation Status: Acute (4) Concussion and edema of cervical spinal cord Status: Acute (5) Diabetes Status: Chronic (6) Hypertension Status: Chronic (7) Injury to ligament of cervical spine Status: Acute (8) Multiple sclerosis Status: Chronic (9) Nasal bone fracture Status: Acute (10) Nasal laceration Status: Acute (11) Renal failure (ARF), acute on chronic Status: Chronic Surgical Problems: (1) Status post colostomy Status: Chronic Objective Vital Signs Date Time Temp Pulse Resp B/P (MAP) Pulse Ox O2 Delivery O2 Flow Rate FiO2 11/02/16 07:07 67 12 97 Room Air 11/02/16 06:33 36.7 69 14 114/58 (76) 97 Room Air 11/02/16 04:00 36.5 69 16 133/65 96 Room Air 11/02/16 03:28 65 16 93 Room Air 11/02/16 00:00 Room Air 11/02/16 00:00 36.4 16 119/67 97 Room Air 11/01/16 23:41 60 16 95 Room Air 11/01/16 23:15 36.5 64 14 130/57 (81) 96 Room Air 11/01/16 21:21 68 131/57 (81) 11/01/16 19:50 36.6 63 16 112/58 (76) 97 Room Air 11/01/16 19:31 60 16 95 Room Air 11/01/16 16:00 Room Air 11/01/16 16:00 36.3 58 16 92/47 98 Room Air 11/01/16 15:30 59 16 98 Room Air 11/01/16 11:26 61 16 96 Room Air 11/01/16 11:24 36.5 58 17 92/50 (64) 98 Room Air Laboratory Results Last 24 Hours Test 11/01/16 12:11 11/01/16 17:25 11/01/16 21:11 11/02/16 04:57 Bedside Glucose 101 mg/dl 138 mg/dl 141 mg/dl White Blood Count 8.40 K/uL Red Blood Count 2.92 M/uL Hemoglobin 8.7 g/dL Hematocrit 25.6 % Mean Corpuscular Volume 87.7 fL Mean Corpuscular Hemoglobin 29.8 pg Mean Corpuscular Hemoglobin Concent 34.0 g/dl RDW Standard Deviation 48.3 fL RDW Coefficient of Variation 15.0 % Platelet Count 175 K/uL Mean Platelet Volume 9.8 fL Sodium Level 135 mmol/L Potassium Level 3.6 mmol/L Chloride Level 100 mmol/L Carbon Dioxide Level 23 mmol/L Anion Gap 12.0 mmol/L Blood Urea Nitrogen 78 mg/dl Creatinine 6.80 mg/dl Est Creatinine Clear Calc Drug Dose 11.5 ml/min Estimated GFR () 8.8 Estimated GFR (Non- 7.6 BUN/Creatinine Ratio 11.6 Random Glucose 84 mg/dl Calcium Level 8.0 mg/dl Test 11/02/16 06:52 Bedside Glucose 97 mg/dl Assessment and Plan (1) Patient stable from spinal perspective. Awaiting bed Images: Unstable C-spine injury with pure ligamentous instability. Plan : Operative intervention tomorrow, approx. 3pm. anterior approach, fusion C5-C7, preceed by decompression of spinal canal. may have dialysis tomorrow. Must be completed by 130 pm. Continued [facility] stay due to: multiple IV medications needed Discharge planning: uncertain
[2016-11-02] MEDS: METOPROLOL SUCC 50MG EXT REL TAB PO SCH ×2 (09:00→21:25)
[2016-11-02] MEDS: INSULIN GLARGINE SOLOSTAR 100 UNITS/ML 3 ML PEN SC SCH ×2 (09:00→21:00)
--- NOTE | 2016-11-02 10:31 | Dialysis Progress Note ---
Hemodialysis Note Date of Service Nov 02, 2016. Chief Complaint Follow-up for end-stage renal disease on hemodialysis. Dejuan Pollock was seen and examined during dialysis this morning. He has been otherwise feeling well, tolerating dialysis well, denies any and chest pain, dizziness, lightheadedness. P.o. intake has been adequate. Blood pressure well controlled. Review of Systems A complete review of systems was performed. Pertinent positives are noted above. All other systems are negative. Vital Signs Last 8 Hrs Date Time Temp Pulse Resp B/P (MAP) Pulse Ox O2 Delivery O2 Flow Rate FiO2 11/02/16 07:07 67 12 97 Room Air 11/02/16 06:33 36.7 69 14 114/58 (76) 97 Room Air 11/02/16 04:00 36.5 69 16 133/65 96 Room Air 11/02/16 03:28 65 16 93 Room Air Last Recorded Weight Weight (Kilograms): 90.100 Physical Exam GENERAL: Middle aged male, AAA x 3, pleasant, healthy-appearing, not in any distress. NECK: Neck collar in place RESPIRATORY: Normal breathing efforts, no accessory muscle use, clear to auscultation bilaterally, no wheezes or rales. CARDIOVASCULAR: S1, S2 normal, rate rhythm regular. EXTREMITY: No lower extremity edema NEURO: speech fluent. PSYCHIATRY: Normal mood and judgment Social History Smoking Status: Never smoker Smokeless Tobacco Use: No Alcohol Use: none Drug Use: none Marital Status: Housing Status: lives with family Occupation: retired Laboratory Results Past 24 Hours 11/02/16 04:57 11/02/16 04:57 Test 11/01/16 12:11 11/01/16 17:25 11/01/16 21:11 11/02/16 04:57 Bedside Glucose 101 mg/dl (70-99) 138 mg/dl (70-99) 141 mg/dl (70-99) Red Blood Count 2.92 M/uL (4.7-6.1) Mean Corpuscular Volume 87.7 fL (80-100) Mean Corpuscular Hemoglobin 29.8 pg (25-34) Mean Corpuscular Hemoglobin Concent 34.0 g/dl (32-36) RDW Standard Deviation 48.3 fL (36.4-46.3) RDW Coefficient of Variation 15.0 % (11.5-14.5) Mean Platelet Volume 9.8 fL (7.4-10.4) Anion Gap 12.0 mmol/L (3-11) Est Creatinine Clear Calc Drug Dose 11.5 ml/min Estimated GFR () 8.8 Estimated GFR (Non- 7.6 BUN/Creatinine Ratio 11.6 (10-20) Calcium Level 8.0 mg/dl (8.5-10.1) Test 11/02/16 06:52 Bedside Glucose 97 mg/dl (70-99) Allergies Coded Allergies: No Known Allergies (Verified , 10/27/16) Medications Current Inpatient Medications Medications (Trade) Dose Ordered Sig/Brendan Route Start Time Stop Time Status Last Admin Dose Admin Acetaminophen (Tylenol Tab) 650 mg Q4H PRN PO 10/29/16 01:15 11/28/16 01:14 11/01/16 23:27 650 MG Isosorbide Mononitrate (Imdur Ext Rel Tab) 30 mg QAM PO 10/29/16 09:00 11/28/16 08:59 11/01/16 09:08 30 MG Meclizine HCl (Antivert Tab) 25 mg DAILY PRN PO 10/29/16 01:15 11/28/16 01:14 11/02/16 08:13 25 MG Glucose (Glucose 40% Gel) UD PRN PO 10/29/16 01:30 11/28/16 01:29 Glucose (Glucose Chew Tab) 1 tabs UD PRN PO 10/29/16 01:30 11/28/16 01:29 Dextrose (Dextrose 50% 50ML Syringe) 50 ml UD PRN IV 10/29/16 01:30 11/28/16 01:29 Glucagon (Glucagon Inj) 1 mg UD PRN SQ 10/29/16 01:30 11/28/16 01:29 Hydralazine HCl (HydrALAZINE INJ) 10 mg Q4H PRN IV. 10/29/16 01:30 11/28/16 01:29 10/31/16 00:01 10 MG Ipratropium [place] (Atrovent 0.02% 0.5MG/2.5ML Neb) 0.5 mg Q2H PRN INH 10/29/16 03:45 11/28/16 03:44 Levalbuterol (Xopenex 1.25MG/ 0.5ML Neb) 1.25 mg Q2H PRN INH 10/29/16 03:45 11/28/16 03:44 Miscellaneous Information (Order Awaiting Action) 1 ea QS N/A 10/29/16 08:00 11/28/16 07:59 10/31/16 08:13 1 EA Metoprolol Succinate (Toprol Xl Tab) 100 mg BID PO 10/29/16 09:00 11/28/16 08:59 11/01/16 21:23 100 MG Vitamin B Complex/ Vit C/Folic Acid (Nephrocaps) 1 cap QAM PO 10/30/16 09:00 11/29/16 08:59 11/02/16 08:13 1 CAP Insulin Aspart (novoLOG ASPART) SLIDING SCALE If C... ACHS SC 10/29/16 12:30 11/28/16 12:29 11/02/16 08:09 1 UNITS Silodosin (Rapaflo Cap) 8 mg HS PO 10/30/16 21:00 11/29/16 20:59 11/01/16 21:23 8 MG Insulin Glargine (Lantus Solostar Pen) SEE PROTOCOL TEXT BID SC 10/30/16 17:00 11/29/16 16:59 Future hold 10/31/16 21:16 22 UNITS Miscellaneous Information (Consult Glycemic Management Pharmacy) 1 ea UD PRN N/A 10/30/16 13:00 11/29/16 12:59 Racepinephrine (Raccemic Epinephrine 2.25% 0.5ML Neb) 0.5 ml ONE PRN INH 10/30/16 18:15 Acetaminophen 1000 mg/Empty Bag 100 ml @ 400 mls/hr Q8H PRN IV 10/30/16 18:15 11/29/16 18:14 10/31/16 08:14 400 MLS/HR Hydromorphone HCl (Dilaudid Inj) 0.5mg IV for moder... Q3H PRN IV 10/30/16 18:15 11/13/16 18:14 11/02/16 06:06 1 MG Magnesium Hydroxide (Milk Of Magnesia Susp) 30 ml DAILY PRN PO 10/30/16 18:15 11/29/16 18:14 Docusate Sodium (coLACE CAP) 100 mg BID PO 10/30/16 21:00 11/29/16 20:59 11/02/16 08:11 100 MG Ondansetron HCl (Zofran Inj) 4 mg Q6 PRN IV 10/30/16 18:15 11/29/16 18:14 11/01/16 12:59 4 MG Lorazepam 0.5 mg/ Syringe 1 ml @ 1 mls/min Q8H PRN IV 10/30/16 18:15 11/29/16 18:14 Acetaminophen/ Hydrocodone Bitart ([place] 5/325 Tab) 1 tablet for pain scale ... Q4H PRN PO 10/30/16 18:15 11/13/16 18:14 11/02/16 04:04 2 TAB Bisacodyl (Dulcolax Supp) 10 mg DAILY PRN OR 11/01/16 06:00 12/01/16 05:59 Dexamethasone Sodium Phosphate 8 mg/Syringe 2 ml @ 1 mls/min ONE PRN IV 10/30/16 18:15 Naloxone HCl (Narcan Inj) 0.1 mg Q5M PRN IV 10/30/16 18:15 11/29/16 18:14 Aspirin (Ecotrin Tab) 81 mg HS PO 10/30/16 21:00 11/29/16 20:59 11/01/16 21:23 81 MG Nifedipine (Procardia Xl Tab) 90 mg QAM PO 10/31/16 09:00 11/30/16 08:59 11/01/16 09:08 90 MG Epoetin Hammad (Procrit Inj) 10,000 units TODAY@0600 IV. 11/02/16 06:00 11/02/16 23:59 Paricalcitol (Zemplar Inj) 3 mcg TODAY@0600 IV. 11/02/16 06:00 11/02/16 23:59 Heparin Sodium (Porcine) (No Heparin In Dialysis) 1 ea TODAY@0600 N/A 11/02/16 06:00 11/02/16 23:59 Impression (1) ESRD (end stage renal disease) on dialysis (2) Concussion and edema of cervical spinal cord, initial encounter (3) Nasal bone fracture (4) Hypertension (5) Multiple sclerosis (6) Nasal laceration (7) Injury to ligament of cervical spine Mr. Bravo was admitted to the hospital 10/29 following a syncopal event. He completed outpatient dialysis without complication but upon leaving the facility fell and suffered injury to his cervical spine ligaments. He required C5 - C7 cervical discectomy w/ fusion 10/30/16. PMH: ESRD requiring MWF HD at formerly [facility], multiple sclerosis, BPH, AODM, diverticulosis s/p partial colectomy with colostomy Recommendations -- currently getting dialysis and tolerating well. Continue dialysis with or heparin considering recent surgery --tentative plan to go to [facility] this afternoon, dialysis ordered given to the dialysis nurse --continue on Nephrocaps, PhosLo with meal. -- Avoid IV fluid
[2016-11-02] MEDS: NIFEdipine 30 MG CR TAB PO SCH (13:34)
[2016-11-02] MEDS: ISOSORBIDE MONONITRATE 30 MG TABCR PO SCH (13:34)
--- NOTE | 2016-11-02 13:59 | Discharge Instructions ---
Discharge Instructions Date of Service Nov 02, 2016. Admission Reason for Admission: Concussion And Edema Of Cervical Spinal Cord, Discharge Discharge Diagnosis / Problem: Cervical Spine fusion Discharge Goals Goal(s): Decrease discomfort, Improve function Activity Recommendations Activity Level: Up Ad Paulina please see ortho note for activity recommendations . Additional Information Patient informed of condition: Yes Advance Directives: Yes DNR: No Level of Care: Acute Rehab Communicable Disease: No Prognosis: Improving Instructions / Follow-Up Instructions / Follow-Up You received a c5-c7 disectomy and fusion Please follow up with Dr. Pichardo in 10 days Patient will need his sutures removed on 11/04/16 He will also need repeat LFT's on Wednesday to follow up on increase LFT's He will also need repeat CT in 2-3 months for his lung nodule found in the hospital Current Hospital Diet Patient's current hospital diet: Renal Diet, Diabetes Type 2 Diet Discharge Diet Recommended Diet: Diabetes Type 2 Diet, Renal Diet Procedures Procedures Performed: C5-C7 Anterior Cervical Discectomy and Fusion with right iliac crest bone graft , use of spinal cord monitoring Pending Studies Studies pending at discharge: no Laboratory Results Hemoglobin A1c Test 10/29/16 08:33 Range/Units Estimated Average Glucose 137 mg/dl Hemoglobin A1c 6.4 H 4.5-5.6 % Medical Emergencies . Who to Call and When: Medical Emergencies: If at any time you feel your situation is an emergency, please call 911 immediately. . Non-Emergent Contact Non-Emergency issues call your: Primary Care Provider, Surgeon . . "Provider Documentation" section prepared by Gilberto Fairchild. . Core Measure Problem Core Measures: None
[2016-11-02] MEDS ORDERED: BISACODYL 5 MG TABEC PO ONE (14:45)
--- NOTE | 2016-11-02 15:49 | DIAGNOSTIC IMAGING REPORT ---
ABDOMEN 2VIEW W/PA CHEST RTN CLINICAL HISTORY: Ileus pain COMPARISON STUDY: 10/20/2016 FINDINGS: The soft tissues, psoas shadows, renal outlines and intestinal gas pattern appear normal. There is no evidence for bowel obstruction. There is no evidence for free intraperitoneal air. No abnormal abdominal calcifications are seen. A frontal view of the chest was performed and is unremarkable. A distended a rounded density in the right abdomen. This potentially relates to the right kidney or 2. Distended gallbladder. Right upper quadrant ultrasound suggested as follow-up. Extensive postoperative changes are identified within the abdomen and pelvis. IMPRESSION: 1. No acute process the chest. 2. Nonobstructive bowel pattern. 3. 13 cm well-circumscribed density right flank possibly relating either 2. Distended gallbladder or to the urinary tract. Ultrasound or CT is initially suggested as follow-up. Electronically signed by: Jorge García M.D. 11/02/2016 3:48 PM Dictated Date/Time: 11/02/2016 3:43 PM
--- NOTE | 2016-11-02 17:08 | Family Medicine Progress Note ---
Progress Note Date of Service Nov 02, 2016. Subjective Pt evaluation today including: conversation w/ patient, conversation w/ family , physical exam, chart review, conversation w/ identity management consultant, review of inpatient medication list Pain: moderate PO Intake: clear liquids Patient went for dialysis this morning Feeling nauseated, has no vomited and has not had bowel movement since surgery colostomy bag has not had any drainage Is unable to eat as it makes him feel sick Still having some neck pain with movement Having some left hip pain Constitutional: No fever, No chills ENT: No sore throat, No trouble swallowing, No problem reported Cardiovascular: No chest pain, No palpitations Abdomen: + nausea, No pain, No vomiting, No diarrhea, No constipation Musculoskeletal: + joint pain Medications Current Inpatient Medications Medications (Trade) Dose Ordered Sig/Brendan Route Start Time Stop Time Status Last Admin Dose Admin Acetaminophen (Tylenol Tab) 650 mg Q4H PRN PO 10/29/16 01:15 11/28/16 01:14 11/01/16 23:27 650 MG Isosorbide Mononitrate (Imdur Ext Rel Tab) 30 mg QAM PO 10/29/16 09:00 11/28/16 08:59 11/02/16 13:34 30 MG Meclizine HCl (Antivert Tab) 25 mg DAILY PRN PO 10/29/16 01:15 11/28/16 01:14 11/02/16 08:13 25 MG Glucose (Glucose 40% Gel) UD PRN PO 10/29/16 01:30 11/28/16 01:29 Glucose (Glucose Chew Tab) 1 tabs UD PRN PO 10/29/16 01:30 11/28/16 01:29 Dextrose (Dextrose 50% 50ML Syringe) 50 ml UD PRN IV 10/29/16 01:30 11/28/16 01:29 Glucagon (Glucagon Inj) 1 mg UD PRN SQ 10/29/16 01:30 11/28/16 01:29 Hydralazine HCl (HydrALAZINE INJ) 10 mg Q4H PRN IV. 10/29/16 01:30 11/28/16 01:29 10/31/16 00:01 10 MG Ipratropium [place] (Atrovent 0.02% 0.5MG/2.5ML Neb) 0.5 mg Q2H PRN INH 10/29/16 03:45 11/28/16 03:44 Levalbuterol (Xopenex 1.25MG/ 0.5ML Neb) 1.25 mg Q2H PRN INH 10/29/16 03:45 11/28/16 03:44 Miscellaneous Information (Order Awaiting Action) 1 ea QS N/A 10/29/16 08:00 11/28/16 07:59 10/31/16 08:13 1 EA Metoprolol Succinate (Toprol Xl Tab) 100 mg BID PO 10/29/16 09:00 11/28/16 08:59 11/01/16 21:23 100 MG Vitamin B Complex/ Vit C/Folic Acid (Nephrocaps) 1 cap QAM PO 10/30/16 09:00 11/29/16 08:59 11/02/16 08:13 1 CAP Insulin Aspart (novoLOG ASPART) SLIDING SCALE If C... ACHS SC 10/29/16 12:30 11/28/16 12:29 11/02/16 08:09 1 UNITS Silodosin (Rapaflo Cap) 8 mg HS PO 10/30/16 21:00 11/29/16 20:59 11/01/16 21:23 8 MG Insulin Glargine (Lantus Solostar Pen) SEE PROTOCOL TEXT BID SC 10/30/16 17:00 11/29/16 16:59 Future hold 10/31/16 21:16 22 UNITS Miscellaneous Information (Consult Glycemic Management Pharmacy) 1 ea UD PRN N/A 10/30/16 13:00 11/29/16 12:59 Racepinephrine (Raccemic Epinephrine 2.25% 0.5ML Neb) 0.5 ml ONE PRN INH 10/30/16 18:15 Acetaminophen 1000 mg/Empty Bag 100 ml @ 400 mls/hr Q8H PRN IV 10/30/16 18:15 11/29/16 18:14 10/31/16 08:14 400 MLS/HR Hydromorphone HCl (Dilaudid Inj) 0.5mg IV for moder... Q3H PRN IV 10/30/16 18:15 11/13/16 18:14 11/02/16 16:23 0.5 MG Magnesium Hydroxide (Milk Of Magnesia Susp) 30 ml DAILY PRN PO 10/30/16 18:15 11/29/16 18:14 Docusate Sodium (coLACE CAP) 100 mg BID PO 10/30/16 21:00 11/29/16 20:59 11/02/16 08:11 100 MG Ondansetron HCl (Zofran Inj) 4 mg Q6 PRN IV 10/30/16 18:15 11/29/16 18:14 11/01/16 12:59 4 MG Lorazepam 0.5 mg/ Syringe 1 ml @ 1 mls/min Q8H PRN IV 10/30/16 18:15 11/29/16 18:14 Acetaminophen/ Hydrocodone Bitart ([place] 5/325 Tab) 1 tablet for pain scale ... Q4H PRN PO 10/30/16 18:15 11/13/16 18:14 11/02/16 04:04 2 TAB Bisacodyl (Dulcolax Supp) 10 mg DAILY PRN CO 11/01/16 06:00 12/01/16 05:59 Dexamethasone Sodium Phosphate 8 mg/Syringe 2 ml @ 1 mls/min ONE PRN IV 10/30/16 18:15 Naloxone HCl (Narcan Inj) 0.1 mg Q5M PRN IV 10/30/16 18:15 11/29/16 18:14 Aspirin (Ecotrin Tab) 81 mg HS PO 10/30/16 21:00 11/29/16 20:59 11/01/16 21:23 81 MG Nifedipine (Procardia Xl Tab) 90 mg QAM PO 10/31/16 09:00 11/30/16 08:59 11/02/16 13:34 90 MG Epoetin Hammad (Procrit Inj) 10,000 units TODAY@0600 IV. 11/02/16 06:00 11/02/16 23:59 11/02/16 12:20 10,000 UNITS Paricalcitol (Zemplar Inj) 3 mcg TODAY@0600 IV. 11/02/16 06:00 11/02/16 23:59 11/02/16 12:25 3 MCG Heparin Sodium (Porcine) (No Heparin In Dialysis) 1 ea TODAY@0600 N/A 11/02/16 06:00 11/02/16 23:59 Bisacodyl (Dulcolax Tab) 5 mg DAILY PRN PO 11/03/16 09:00 12/03/16 08:59 Objective Vital Signs Date Time Temp Pulse Resp B/P (MAP) Pulse Ox O2 Delivery O2 Flow Rate FiO2 11/02/16 16:30 75 16 95 Room Air 11/02/16 16:00 36.5 77 18 118/67 (84) 99 Room Air 11/02/16 13:30 36.7 77 16 155/70 (98) 97 Room Air 11/02/16 13:05 36.8 77 167/82 (110) 11/02/16 13:00 77 159/74 11/02/16 12:45 68 137/63 11/02/16 12:30 67 148/67 11/02/16 12:15 68 147/69 11/02/16 12:00 67 140/66 11/02/16 11:45 68 142/65 11/02/16 11:30 67 140/66 11/02/16 11:15 66 133/61 11/02/16 11:00 67 134/67 11/02/16 10:45 69 124/60 11/02/16 10:30 68 136/61 11/02/16 10:15 70 131/64 11/02/16 10:04 Room Air 11/02/16 10:00 68 138/62 11/02/16 09:45 68 131/54 11/02/16 09:30 68 131/64 11/02/16 09:15 66 130/61 11/02/16 09:05 67 132/64 11/02/16 08:50 36.6 68 131/63 (85) 11/02/16 07:07 67 12 97 Room Air 11/02/16 06:33 36.7 69 14 114/58 (76) 97 Room Air 11/02/16 04:00 36.5 69 16 133/65 96 Room Air 11/02/16 03:28 65 16 93 Room Air 11/02/16 00:00 Room Air 11/02/16 00:00 36.4 16 119/67 97 Room Air 11/01/16 23:41 60 16 95 Room Air 11/01/16 23:15 36.5 64 14 130/57 (81) 96 Room Air 11/01/16 21:21 68 131/57 (81) 11/01/16 19:50 36.6 63 16 112/58 (76) 97 Room Air 11/01/16 19:31 60 16 95 Room Air Physical Exam General Appearance: WD/WN, + mild distress ENT: hearing grossly normal, pharynx normal, + pertinent finding (has bandage over anterior neck, no erythema or drainage) Respiratory/Chest: lungs clear, no respiratory distress, no accessory muscle use Cardiovascular: regular rate, rhythm, no murmur Abdomen: normal bowel sounds, non tender, + distended, + pertinent finding ( colostomy bag in RLQ with no contents within bag) Extremities: no calf tenderness, normal capillary refill Laboratory Results Results Past 24 Hours Test 11/01/16 17:25 11/01/16 21:11 11/02/16 04:57 11/02/16 06:52 Range/Units Bedside Glucose 138 141 97 70-99 mg/dl White Blood Count 8.40 4.8-10.8 K/uL Red Blood Count 2.92 4.7-6.1 M/uL Hemoglobin 8.7 14.0-18.0 g/dL Hematocrit 25.6 42-52 % Mean Corpuscular Volume 87.7 80-100 fL Mean Corpuscular Hemoglobin 29.8 25-34 pg Mean Corpuscular Hemoglobin Concent 34.0 32-36 g/dl RDW Standard Deviation 48.3 36.4-46.3 fL RDW Coefficient of Variation 15.0 11.5-14.5 % Platelet Count 175 130-400 K/uL Mean Platelet Volume 9.8 7.4-10.4 fL Sodium Level 135 136-145 mmol/L Potassium Level 3.6 3.5-5.1 mmol/L Chloride Level 100 98-107 mmol/L Carbon Dioxide Level 23 21-32 mmol/L Anion Gap 12.0 3-11 mmol/L Blood Urea Nitrogen 78 7-18 mg/dl Creatinine 6.80 0.60-1.40 mg/dl Est Creatinine Clear Calc Drug Dose 11.5 ml/min Estimated GFR () 8.8 Estimated GFR (Non- 7.6 BUN/Creatinine Ratio 11.6 10-20 Random Glucose 84 70-99 mg/dl Calcium Level 8.0 8.5-10.1 mg/dl Test 11/02/16 13:26 Range/Units Bedside Glucose 86 70-99 mg/dl Assessment and Plan 66 yo M with hx of MS and ESRD presenting with HX of syncope/Fall resulting in injury to Cspine C5-7, s/p C5-C7 Anterior Cervical Discectomy and Fusion by Dr. Pichardo (10/30) and nasal fx/laceration. Patient was planned to go to [facility] today but has an Ileus and therefore will need bowel rest and we will continue to monitor for the passing of gas or a bowel movement S/P C5-C7 Anterior Cervical Discectomy and Fusion - tolerated procedure - pain control w/ dilaudid and norco - racemic epi and hydrocortisone on hold if stridor present - f/u with [facility] in 10 days Ileus - complication from surgery, anesthesia and multiple medications - change diet to clear liquids - Order KUB - Order Dulcolax to stimulate bowels HTN - BP controlled - c/w Metoprolol, Nifedipine, Isosorbide Nasal Laceration -will need suture removal at discharge or at rehab Elevated LFTS - Chronic, mild - Continue to monitor - may be due to dialysis - haemochromatosis? ESRD -Nephrology on board -Had Dialysis today, tolerated well -Electrolytes appropriate - c/w current dialysis regimen - patient on aspirin T2DM: - Glycemic consult Anemia - likely due to ESRD - continue monitoring H/H - Per Nephrology, will get Erythropoietin stim. agents during dialysis Disposition: - has a place to stay in [place] Resident Physician Supervision Note: I was present with PGY2 Dr. Gilberto Fairchild during the history and exam. I discussed the case with the resident and agree with the findings and plan as documented in the note. Any exceptions or clarifications are listed here: patient's colostomy is in the LLQ. Bone harvest was from the right hip. Pt with nausea, inability to take PO. Had emesis yesterday. Has had no stool or gas via colostomy since his surgery. VSS no fever gen - nad, looks ill neck - anterior neck with dressing intact, no obvious hematoma, no JVD heart - RRR, s1, s2 lungs - CTA b/l abd - colostomy left abdomen - bag with no gas/stool; mild distension, BS+ and normal, NT ext - no edema A/P: 1. s/p C5-C7 anterior cervical diskectomy with fusion due to instability and ligamentum flavum tear 2. suspected post-op ileus 3. ESRD on HD 4. MS 5. UC 6. abnormal LFTs 7. nondisplaced nasal fractures 8. left apex 7mm lung nodule 9. nasal bridge laceration s/p repair KUB x-ray due to #2 dulcolax po x 1 change diet to clears repeat labs in AM check ferritin/iron studies due to #6 needs ENT f/u for #7 updated d/c canceled due to #2 Documented By: Gordon Person MD Continued [facility] stay due to: multiple IV medications needed
[2016-11-02] MEDS: ASPIRIN 81 MG ECTAB PO SCH (21:25)
[2016-11-03] VITALS (15 sets, daily range): BP systolic 103–132; BP diastolic 58–80; PULSE 65–77; TEMP 36.3–36.9; O2SAT 95–100
[2016-11-03] MEDS: ACETAMINOPHEN 325 MG TAB PO PRN (00:17)
[2016-11-03] MEDS: HYDROCODONE/ACETAMOPHEN 5/325MG TAB PO PRN ×4 (04:25→22:39)
[2016-11-03 06:43] LABS: BUN/CREATININE RATIO 9.4 (10-20); CALCIUM 8.7 mg/dl (8.5-10.1); CREATININE 4.6 mg/dl (0.60-1.40); FERRITIN 1506.1 ng/ml (8.0-388.0); POTASSIUM 4.1 mmol/L (3.5-5.1)
[2016-11-03] MEDS: INSULIN GLARGINE SOLOSTAR 100 UNITS/ML 3 ML PEN SC SCH ×2 (07:26→22:43)
[2016-11-03] MEDS: METOPROLOL SUCC 50MG EXT REL TAB PO SCH ×2 (07:28→20:50)
[2016-11-03] MEDS: DOCUSATE SODIUM 100 MG CAP PO SCH ×2 (07:30→20:52)
[2016-11-03] MEDS: NEPHROCAPS PO SCH (07:31)
[2016-11-03] MEDS: NIFEdipine 30 MG CR TAB PO SCH (07:31)
[2016-11-03] MEDS: ISOSORBIDE MONONITRATE 30 MG TABCR PO SCH (07:31)
[2016-11-03] MEDS: INSULIN ASPART 100 UNITS/ML 3 ML PEN SC SCH ×4 (07:35→22:42)
[2016-11-03] MEDS ORDERED: BISACODYL 5 MG TABEC PO PRN (09:00)
--- NOTE | 2016-11-03 12:20 | Nephrology Progress Note ---
Nephrology Progress Note Date of Service Nov 03, 2016. Chief Complaint Follow-up for end-stage renal disease on hemodialysis. Subjective Phill was seen and examined in his room this morning with his family at bedside. He overall feels well, no significant pain, no shortness of breath. Did not have bowel movement yet, not passing gas however denies any abdominal discomforted, nausea vomiting. Abdominal x-ray yesterday was negative for bowel obstruction. blood pressure, volume status and electrolyte acceptable. Review of Systems A complete review of systems was performed. Pertinent positives are noted above. All other systems are negative. Vital Signs Last 8 Hrs Date Time Temp Pulse Resp B/P (MAP) Pulse Ox O2 Delivery O2 Flow Rate FiO2 11/03/16 11:16 77 16 97 Room Air 11/03/16 07:38 74 16 99 Room Air 11/03/16 07:15 72 16 110/64 97 Room Air 11/03/16 07:15 Room Air 11/03/16 06:42 36.7 73 16 113/66 (82) 97 Room Air Last Recorded Weight Weight (Kilograms): 81.600 Physical Exam GENERAL: Middle aged male, AAA x 3, pleasant, healthy-appearing, not in any distress. NECK: Neck collar in place RESPIRATORY: Normal breathing efforts, no accessory muscle use, clear to auscultation bilaterally, no wheezes or rales. CARDIOVASCULAR: S1, S2 normal, rate rhythm regular. EXTREMITY: No lower extremity edema, left upper extremity brachiocephalic AV fistula, with thrill and bruit, steri strips in place. NEURO: speech fluent. PSYCHIATRY: Normal mood and judgment Family History Hypertension Social History Smoking Status: Never smoker Smokeless Tobacco Use: No Alcohol Use: none Drug Use: none Marital Status: Housing Status: lives with family Occupation: retired Laboratory Results Past 24 Hours 11/03/16 05:23 Test 11/02/16 13:26 11/02/16 17:10 11/02/16 20:54 11/03/16 05:23 Bedside Glucose 86 mg/dl (70-99) 91 mg/dl (70-99) 95 mg/dl (70-99) Anion Gap 10.0 mmol/L (3-11) Est Creatinine Clear Calc Drug Dose 16.8 ml/min Estimated GFR () 14.1 Estimated GFR (Non- 12.2 BUN/Creatinine Ratio 9.4 (10-20) Calcium Level 8.7 mg/dl (8.5-10.1) Iron Level 40 mcg/dl (35-175) Total Iron Binding Capacity 175 mcg/dl (250-450) Transferrin 154 mg/dl (200-360) Transferrin % Saturation 19 % (20-50) Ferritin 1506.1 ng/ml (8.0-388.0) Test 11/03/16 06:36 11/03/16 11:57 Bedside Glucose 96 mg/dl (70-99) 116 mg/dl (70-99) Allergies Coded Allergies: No Known Allergies (Verified , 10/27/16) Medications Current Inpatient Medications Medications (Trade) Dose Ordered Sig/Brendan Route Start Time Stop Time Status Last Admin Dose Admin Acetaminophen (Tylenol Tab) 650 mg Q4H PRN PO 10/29/16 01:15 11/28/16 01:14 11/03/16 00:17 650 MG Isosorbide Mononitrate (Imdur Ext Rel Tab) 30 mg QAM PO 10/29/16 09:00 11/28/16 08:59 11/03/16 07:31 30 MG Meclizine HCl (Antivert Tab) 25 mg DAILY PRN PO 10/29/16 01:15 11/28/16 01:14 11/02/16 08:13 25 MG Glucose (Glucose 40% Gel) UD PRN PO 10/29/16 01:30 11/28/16 01:29 Glucose (Glucose Chew Tab) 1 tabs UD PRN PO 10/29/16 01:30 11/28/16 01:29 Dextrose (Dextrose 50% 50ML Syringe) 50 ml UD PRN IV 10/29/16 01:30 11/28/16 01:29 Glucagon (Glucagon Inj) 1 mg UD PRN SQ 10/29/16 01:30 11/28/16 01:29 Hydralazine HCl (HydrALAZINE INJ) 10 mg Q4H PRN IV. 10/29/16 01:30 11/28/16 01:29 10/31/16 00:01 10 MG Ipratropium [place] (Atrovent 0.02% 0.5MG/2.5ML Neb) 0.5 mg Q2H PRN INH 10/29/16 03:45 11/28/16 03:44 Levalbuterol (Xopenex 1.25MG/ 0.5ML Neb) 1.25 mg Q2H PRN INH 10/29/16 03:45 11/28/16 03:44 Miscellaneous Information (Order Awaiting Action) 1 ea QS N/A 10/29/16 08:00 11/28/16 07:59 10/31/16 08:13 1 EA Metoprolol Succinate (Toprol Xl Tab) 100 mg BID PO 10/29/16 09:00 11/28/16 08:59 11/02/16 21:25 100 MG Vitamin B Complex/ Vit C/Folic Acid (Nephrocaps) 1 cap QAM PO 10/30/16 09:00 11/29/16 08:59 11/03/16 07:31 1 CAP Insulin Aspart (novoLOG ASPART) SLIDING SCALE If C... ACHS SC 10/29/16 12:30 11/28/16 12:29 11/03/16 07:35 1 UNITS Silodosin (Rapaflo Cap) 8 mg HS PO 10/30/16 21:00 11/29/16 20:59 11/02/16 21:25 8 MG Insulin Glargine (Lantus Solostar Pen) SEE PROTOCOL TEXT BID SC 10/30/16 17:00 11/29/16 16:59 Future hold 10/31/16 21:16 22 UNITS Miscellaneous Information (Consult Glycemic Management Pharmacy) 1 ea UD PRN N/A 10/30/16 13:00 11/29/16 12:59 Racepinephrine (Raccemic Epinephrine 2.25% 0.5ML Neb) 0.5 ml ONE PRN INH 10/30/16 18:15 Acetaminophen 1000 mg/Empty Bag 100 ml @ 400 mls/hr Q8H PRN IV 10/30/16 18:15 11/29/16 18:14 10/31/16 08:14 400 MLS/HR Hydromorphone HCl (Dilaudid Inj) 0.5mg IV for moder... Q3H PRN IV 10/30/16 18:15 11/13/16 18:14 11/02/16 16:23 0.5 MG Magnesium Hydroxide (Milk Of Magnesia Susp) 30 ml DAILY PRN PO 10/30/16 18:15 11/29/16 18:14 Docusate Sodium (coLACE CAP) 100 mg BID PO 10/30/16 21:00 11/29/16 20:59 11/03/16 07:30 100 MG Ondansetron HCl (Zofran Inj) 4 mg Q6 PRN IV 10/30/16 18:15 11/29/16 18:14 11/01/16 12:59 4 MG Lorazepam 0.5 mg/ Syringe 1 ml @ 1 mls/min Q8H PRN IV 10/30/16 18:15 11/29/16 18:14 Acetaminophen/ Hydrocodone Bitart ([place] 5/325 Tab) 1 tablet for pain scale ... Q4H PRN PO 10/30/16 18:15 11/13/16 18:14 11/03/16 04:25 2 TAB Bisacodyl (Dulcolax Supp) 10 mg DAILY PRN [place] 11/01/16 06:00 12/01/16 05:59 Dexamethasone Sodium Phosphate 8 mg/Syringe 2 ml @ 1 mls/min ONE PRN IV 10/30/16 18:15 Naloxone HCl (Narcan Inj) 0.1 mg Q5M PRN IV 10/30/16 18:15 11/29/16 18:14 Aspirin (Ecotrin Tab) 81 mg HS PO 10/30/16 21:00 11/29/16 20:59 11/02/16 21:25 81 MG Nifedipine (Procardia Xl Tab) 90 mg QAM PO 10/31/16 09:00 11/30/16 08:59 11/03/16 07:31 90 MG Bisacodyl (Dulcolax Tab) 5 mg DAILY PRN PO 11/03/16 09:00 12/03/16 08:59 Impression (1) ESRD (end stage renal disease) on dialysis (2) Concussion and edema of cervical spinal cord, initial encounter (3) Nasal bone fracture (4) Hypertension (5) Multiple sclerosis (6) Nasal laceration (7) Injury to ligament of cervical spine Mr. Bravo was admitted to the hospital 10/29 following a syncopal event. He completed outpatient dialysis without complication but upon leaving the facility fell and suffered injury to his cervical spine ligaments. He required C5 - C7 cervical discectomy w/ fusion 10/30/16. PMH: ESRD requiring MWF HD at [facility] [place], multiple sclerosis, BPH, AODM, diverticulosis s/p partial colectomy with colostomy Recommendations -- currently doing well, blood pressure volume status acceptable, next dialysis tomorrow. Continue dialysis without heparin considering recent surgery --tentative plan to go to [facility] --continue on Nephrocaps, PhosLo with meal. -- Avoid IV fluid
--- NOTE | 2016-11-03 12:51 | Pharmacy Progress Note ---
Glycemic: Assessment & Plan Date of Service Nov 03, 2016. Assessment & Plan The patient is currently receiving 1-4 units of insulin per day the past two days. BSGs ranging 84 - 116 mg/dl over the past 24hrs. Patient has not required any Lantus the past two days, patient is usually on Lantus 60 units daily at home. POD 4 spinal fusion, ESRD on HD 3x/wk. * Basal insulin: Lantus SQ BID based on BSG: * BSG 150mg/dL or less - 0 units * BSG 151-180mg/dl - 15 units * BSG 181mg/dl or greater - 22 units * Correctional Insulin: Novolog Correction per scale ACHS Goal Range: Low 100 mg/dL - High 150 mg/dL Correction Factor: 25 mg/dL/unit * Prandial insulin: Per carb ratio of 1 unit per 10 grams CHO consumed BSGs continue to improve, no changes needed to inpatient regimen at this time. Pharmacy will continue to monitor patient daily and write orders per [facility] inpatient glycemic control protocol. Thanks. * Please note that the plan above was derived based on current level of insulin resistance and hospital stress. These recommendations are appropriate for inpatient admission only. Plan of care upon discharge will need to be reassessed to avoid potential outpatient hypo/hyperglycemia.
[2016-11-03] MEDS: POLYETHYLENE (MIRALAX) 17 GM PACK PO SCH ×3 (15:25→19:38)
--- NOTE | 2016-11-03 15:43 | Family Medicine Progress Note ---
Progress Note Date of Service Nov 03, 2016. Subjective Pt evaluation today including: conversation w/ patient, conversation w/ family , physical exam Pain: minimal-moderate PO Intake: full liquid Voiding: no voiding problems Patient still with no bowel movement into stoma, has not passed gas is tolerating clear liquid diet no nausea, vomiting or abdominal pain has some weakness and decreased sensation of left hand Constitutional: No fever, No chills, No sweats ENT: + sore throat, + trouble swallowing (feels full but doesn't get stuck) , No hearing loss Respiratory: No cough, No sputum, No shortness of breath Cardiovascular: No chest pain, No palpitations Abdomen: + constipation, No pain, No nausea, No vomiting, No diarrhea Musculoskeletal: + joint pain, + swelling Skin: No rash, No new/changing skin lesions Medications Current Inpatient Medications Medications (Trade) Dose Ordered Sig/Brendan Route Start Time Stop Time Status Last Admin Dose Admin Acetaminophen (Tylenol Tab) 650 mg Q4H PRN PO 10/29/16 01:15 11/28/16 01:14 11/03/16 00:17 650 MG Isosorbide Mononitrate (Imdur Ext Rel Tab) 30 mg QAM PO 10/29/16 09:00 11/28/16 08:59 11/03/16 07:31 30 MG Meclizine HCl (Antivert Tab) 25 mg DAILY PRN PO 10/29/16 01:15 11/28/16 01:14 11/02/16 08:13 25 MG Glucose (Glucose 40% Gel) UD PRN PO 10/29/16 01:30 11/28/16 01:29 Glucose (Glucose Chew Tab) 1 tabs UD PRN PO 10/29/16 01:30 11/28/16 01:29 Dextrose (Dextrose 50% 50ML Syringe) 50 ml UD PRN IV 10/29/16 01:30 11/28/16 01:29 Glucagon (Glucagon Inj) 1 mg UD PRN SQ 10/29/16 01:30 11/28/16 01:29 Hydralazine HCl (HydrALAZINE INJ) 10 mg Q4H PRN IV. 10/29/16 01:30 11/28/16 01:29 10/31/16 00:01 10 MG Ipratropium [place] (Atrovent 0.02% 0.5MG/2.5ML Neb) 0.5 mg Q2H PRN INH 10/29/16 03:45 11/28/16 03:44 Levalbuterol (Xopenex 1.25MG/ 0.5ML Neb) 1.25 mg Q2H PRN INH 10/29/16 03:45 11/28/16 03:44 Miscellaneous Information (Order Awaiting Action) 1 ea QS N/A 10/29/16 08:00 11/28/16 07:59 10/31/16 08:13 1 EA Metoprolol Succinate (Toprol Xl Tab) 100 mg BID PO 10/29/16 09:00 11/28/16 08:59 11/02/16 21:25 100 MG Vitamin B Complex/ Vit C/Folic Acid (Nephrocaps) 1 cap QAM PO 10/30/16 09:00 11/29/16 08:59 11/03/16 07:31 1 CAP Insulin Aspart (novoLOG ASPART) SLIDING SCALE If C... ACHS SC 10/29/16 12:30 11/28/16 12:29 11/03/16 12:44 3 UNITS Silodosin (Rapaflo Cap) 8 mg HS PO 10/30/16 21:00 11/29/16 20:59 11/02/16 21:25 8 MG Insulin Glargine (Lantus Solostar Pen) SEE PROTOCOL TEXT BID SC 10/30/16 17:00 11/29/16 16:59 Future hold 10/31/16 21:16 22 UNITS Miscellaneous Information (Consult Glycemic Management Pharmacy) 1 ea UD PRN N/A 10/30/16 13:00 11/29/16 12:59 Racepinephrine (Raccemic Epinephrine 2.25% 0.5ML Neb) 0.5 ml ONE PRN INH 10/30/16 18:15 Acetaminophen 1000 mg/Empty Bag 100 ml @ 400 mls/hr Q8H PRN IV 10/30/16 18:15 11/29/16 18:14 10/31/16 08:14 400 MLS/HR Magnesium Hydroxide (Milk Of Magnesia Susp) 30 ml DAILY PRN PO 10/30/16 18:15 11/29/16 18:14 Docusate Sodium (coLACE CAP) 100 mg BID PO 10/30/16 21:00 11/29/16 20:59 11/03/16 07:30 100 MG Ondansetron HCl (Zofran Inj) 4 mg Q6 PRN IV 10/30/16 18:15 11/29/16 18:14 11/01/16 12:59 4 MG Lorazepam 0.5 mg/ Syringe 1 ml @ 1 mls/min Q8H PRN IV 10/30/16 18:15 11/29/16 18:14 Acetaminophen/ Hydrocodone Bitart ([place] 5/325 Tab) 1 tablet for pain scale ... Q4H PRN PO 10/30/16 18:15 11/13/16 18:14 11/03/16 12:38 2 TAB Bisacodyl (Dulcolax Supp) 10 mg DAILY PRN [place] 11/01/16 06:00 12/01/16 05:59 Dexamethasone Sodium Phosphate 8 mg/Syringe 2 ml @ 1 mls/min ONE PRN IV 10/30/16 18:15 Naloxone HCl (Narcan Inj) 0.1 mg Q5M PRN IV 10/30/16 18:15 11/29/16 18:14 Aspirin (Ecotrin Tab) 81 mg HS PO 10/30/16 21:00 11/29/16 20:59 11/02/16 21:25 81 MG Nifedipine (Procardia Xl Tab) 90 mg QAM PO 10/31/16 09:00 11/30/16 08:59 11/03/16 07:31 90 MG Bisacodyl (Dulcolax Tab) 5 mg DAILY PRN PO 11/03/16 09:00 12/03/16 08:59 11/03/16 15:25 5 MG Polyethylene (Miralax Powder Packet) 17 gm Q2H PO 11/03/16 15:00 11/03/16 19:01 11/03/16 15:25 17 GM Objective Vital Signs Date Time Temp Pulse Resp B/P (MAP) Pulse Ox O2 Delivery O2 Flow Rate FiO2 11/03/16 15:14 36.7 67 18 103/58 (73) 97 Room Air 11/03/16 14:09 68 16 97 Room Air 11/03/16 11:16 77 16 97 Room Air 11/03/16 07:38 74 16 99 Room Air 11/03/16 07:15 72 16 110/64 97 Room Air 11/03/16 07:15 Room Air 11/03/16 06:42 36.7 73 16 113/66 (82) 97 Room Air 11/03/16 04:00 36.6 73 16 112/63 98 Room Air 11/03/16 03:17 36.9 76 16 109/62 (78) 97 Room Air 11/03/16 03:10 71 16 98 Room Air 11/03/16 00:05 Room Air 11/02/16 23:14 70 16 95 Room Air 11/02/16 22:48 36.8 72 16 126/65 (85) 96 Room Air 11/02/16 20:10 36.8 81 18 137/62 (87) 95 Room Air 11/02/16 19:44 78 18 96 Room Air 11/02/16 17:30 36.9 11/02/16 16:30 75 16 95 Room Air 11/02/16 16:30 95 Room Air 11/02/16 16:30 36.9 75 16 118/67 95 Room Air 2.0 11/02/16 16:00 36.5 77 18 118/67 (84) 99 Room Air Physical Exam General Appearance: WD/WN, no apparent distress ENT: hearing grossly normal, pharynx normal Neck: no adenopathy, no JVD, no carotid bruits, + pertinent finding (has a bandage over anterior neck) Respiratory/Chest: lungs clear, no respiratory distress, no accessory muscle use Cardiovascular: regular rate, rhythm, no murmur Abdomen: normal bowel sounds, non tender, soft, + pertinent finding (stoma bag in LLQ) Extremities: normal inspection, no pedal edema, no calf tenderness, normal capillary refill Neurologic/Psychiatric: alert, normal mood/affect, oriented x 3 Laboratory Results Results Past 24 Hours Test 11/02/16 17:10 11/02/16 20:54 11/03/16 05:23 11/03/16 06:36 Range/Units Bedside Glucose 91 95 96 70-99 mg/dl Sodium Level 136 136-145 mmol/L Potassium Level 4.1 3.5-5.1 mmol/L Chloride Level 103 98-107 mmol/L Carbon Dioxide Level 23 21-32 mmol/L Anion Gap 10.0 3-11 mmol/L Blood Urea Nitrogen 43 7-18 mg/dl Creatinine 4.60 0.60-1.40 mg/dl Est Creatinine Clear Calc Drug Dose 16.8 ml/min Estimated GFR () 14.1 Estimated GFR (Non- 12.2 BUN/Creatinine Ratio 9.4 10-20 Random Glucose 88 70-99 mg/dl Calcium Level 8.7 8.5-10.1 mg/dl Iron Level 40 35-175 mcg/dl Total Iron Binding Capacity 175 250-450 mcg/dl Transferrin 154 200-360 mg/dl Transferrin % Saturation 19 20-50 % Ferritin 1506.1 8.0-388.0 ng/ml Test 11/03/16 11:57 Range/Units Bedside Glucose 116 70-99 mg/dl Assessment and Plan 66 yo M with hx of MS and ESRD presenting with HX of syncope/Fall resulting in injury to Cspine C5-7, s/p C5-C7 Anterior Cervical Discectomy and Fusion by Dr. Pichardo (10/30) and nasal fx/laceration. Patient was planned to go to [facility] yesterday but has an Ileus. Will start aggressive bowel regimen to help move bowels and have suggested decrease pain meds to decrease constipation S/P C5-C7 Anterior Cervical Discectomy and Fusion - tolerated procedure - pain control w/ dilaudid and norco. stopped dilaudid for pain control - racemic epi and hydrocortisone on hold if stridor present - f/u with [facility] in 10 days Ileus - KUB showed mild fecal load with no obstruction - complication from surgery, anesthesia and multiple medications - change diet to full liquids - Order Miralax 3 doses q2hr and give 5mg dulcolax to stimulate movement of bowels HTN - BP controlled - c/w Metoprolol, Nifedipine, Isosorbide Nasal Laceration -will need suture removal at discharge or at rehab Elevated LFTS - Chronic, mild - Continue to monitor - haemochromatosis? ESRD -Nephrology on board -Had Dialysis yesterday tolerated well -Electrolytes appropriate - c/w current dialysis regimen - patient on aspirin T2DM: - Glycemic consult Anemia - likely due to ESRD - continue monitoring H/H - Per Nephrology, will get Erythropoietin stim. agents during dialysis Disposition: - has a place to stay in - Likely DC tomorrow Resident Physician Supervision Note: I was present with PGY2 Dr. Gilberto Fairchild during the history and exam. I discussed the case with the resident and agree with the findings and plan as documented in the note. Any exceptions or clarifications are listed here: patient's hand complaint is RIGHT hand. First 3 fingers. Tolerating clears. No gas or stool per colostomy however. Less bloating. no nausea or emesis today. VSS no fever gen - nad, sitting in chair, looks good today neck - anterior neck with dressing intact, no obvious hematoma, no JVD heart - RRR, s1, s2 lungs - CTA b/l abd - colostomy left abdomen - bag with no gas/stool; mild distension present, BS+, NT ext - no edema A/P: 1. s/p C5-C7 anterior cervical diskectomy with fusion due to instability and ligamentum flavum tear 2. suspected post-op ileus vs severe constipation/stasis from narcotics 3. ESRD on HD - M/W/F 4. MS 5. UC 6. abnormal LFTs - chronic 7. nondisplaced nasal fractures 8. left apex 7mm lung nodule 9. nasal bridge laceration s/p repair 10. 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
[2016-11-03] MEDS: ASPIRIN 81 MG ECTAB PO SCH (20:52)
[2016-11-04] VITALS (27 sets, daily range): BP systolic 113–152; BP diastolic 50–68; PULSE 67–93; TEMP 36.5–36.8; O2SAT 97–98
[2016-11-04] MEDS: HYDROCODONE/ACETAMOPHEN 5/325MG TAB PO PRN ×2 (06:42→14:42)
[2016-11-04] MEDS ORDERED: BISACODYL 5 MG TABEC PO ONE (06:45)
[2016-11-04] MEDS: NEPHROCAPS PO SCH (07:25)
[2016-11-04] MEDS: ISOSORBIDE MONONITRATE 30 MG TABCR PO SCH (07:25)
[2016-11-04] MEDS: DOCUSATE SODIUM 100 MG CAP PO SCH ×2 (07:26→21:56)
[2016-11-04] MEDS: INSULIN ASPART 100 UNITS/ML 3 ML PEN SC SCH ×4 (07:38→22:00)
[2016-11-04] MEDS: INSULIN GLARGINE SOLOSTAR 100 UNITS/ML 3 ML PEN SC SCH ×2 (07:39→22:02)
--- NOTE | 2016-11-04 07:52 | Discharge Instructions ---
Discharge Instructions Date of Service Nov 04, 2016. Visit Reason for Visit: Concussion And Edema Of Cervical Spinal Cord, Discharge Discharge Diagnosis / Problem: cervical spine instability Discharge Goals Goal(s): Improve function Activity Recommendations Activity Limitations: resume your previous activity Shower/Bathe: no limitations Driving or Machine Use: Anesthesia . Post Anesthesia Instructions: If you have had General Anesthesia or IV Sedation: * Do not drive today. * Resume driving when surgeon permits. * Do not make important decisions or sign legal documents today. * Call surgeon for: 1. Temperature elevations greater than 101 degrees F. 2. Uncontrollable pain. 3. Excessive bleeding. 4. Persistent nausea and vomiting. 5. Medication intolerance (nausea, vomiting or rash). * For nausea and vomiting use only clear liquids such as: tea, soda, bouillon until nausea subsides, then gradually increase diet as tolerated. * If you have any concerns or questions, call your surgeon's office. If physician is unavailable and it is an emergency, call 911 or go to the nearest emergency room. . Instructions / Follow-Up Instructions / Follow-Up Keep wounds clean and dry. Follow up with dr. Pichardo in 7- 10 days Diet Recommendations Recommended Home Diet: no limitations Procedures Procedures Performed: C5-C7 Anterior Cervical Discectomy and Fusion with right iliac crest bone graft , use of spinal cord monitoring Pending Studies Studies pending at discharge: no Medical Emergencies . Who to Call and When: Medical Emergencies: If at any time you feel your situation is an emergency, please call 911 immediately. . Non-Emergent Contact Non-Emergency issues call your: Primary Care Provider . . "Provider Documentation" section prepared by Rivera Pichardo. .
[2016-11-04] MEDS ORDERED: EPOETIN ALFA 20,000 UNITS/ML VIAL IV SCH (08:00)
[2016-11-04] MEDS ORDERED: IRON SUCROSE INJ 100 MG in SYRINGE 0 ML IV SCH (10:00)
--- NOTE | 2016-11-04 11:00 | Dialysis Progress Note ---
Hemodialysis Note Date of Service Nov 04, 2016. Chief Complaint ESRD Subjective Naveen was seen and evaluated during hemodialysis this morning. He is tolerating dialysis well. Pain controlled. No acute complaints. Review of Systems A complete review of systems was performed. Pertinent positives are noted above. All other systems are negative. Vital Signs Last 8 Hrs Date Time Temp Pulse Resp B/P (MAP) Pulse Ox O2 Delivery O2 Flow Rate FiO2 11/04/16 10:30 78 124/59 11/04/16 10:15 79 126/62 11/04/16 10:00 76 140/60 11/04/16 09:45 77 132/60 11/04/16 09:30 75 129/60 11/04/16 09:22 74 131/63 11/04/16 07:20 Room Air 11/04/16 07:01 79 16 97 Room Air 11/04/16 06:24 36.6 77 16 119/55 (76) 97 Room Air 11/04/16 03:20 81 16 98 Room Air Last Recorded Weight Weight (Kilograms): 81.600 Physical Exam General Appearance: WD/WN, no apparent distress Head: normocephalic, atraumatic Eyes: normal inspection, sclerae normal ENT: normal ENT inspection, pharynx normal Neck: + pertinent finding (Cervical collar in place) Respiratory/Chest: lungs clear, no respiratory distress, no accessory muscle use Cardiovascular: regular rate, rhythm, no gallop, + systolic murmur Abdomen/GI: non tender, soft Extremities/Musculoskelatal: normal inspection, no pedal edema Neurologic/Psych: alert, oriented x 3 Social History Smoking Status: Never smoker Smokeless Tobacco Use: No Alcohol Use: none Drug Use: none Marital Status: Housing Status: lives with family Occupation: retired Laboratory Results Past 24 Hours Test 11/03/16 11:57 11/03/16 17:09 11/03/16 19:38 11/03/16 20:41 Bedside Glucose 116 mg/dl (70-99) 176 mg/dl (70-99) 201 mg/dl (70-99) 222 mg/dl (70-99) Test 11/03/16 22:33 11/04/16 06:36 Bedside Glucose 157 mg/dl (70-99) 81 mg/dl (70-99) Allergies Coded Allergies: No Known Allergies (Verified , 10/27/16) Medications Current Inpatient Medications Medications (Trade) Dose Ordered Sig/Brendan Route Start Time Stop Time Status Last Admin Dose Admin Acetaminophen (Tylenol Tab) 650 mg Q4H PRN PO 10/29/16 01:15 11/28/16 01:14 11/03/16 00:17 650 MG Isosorbide Mononitrate (Imdur Ext Rel Tab) 30 mg QAM PO 10/29/16 09:00 11/28/16 08:59 11/04/16 07:25 30 MG Meclizine HCl (Antivert Tab) 25 mg DAILY PRN PO 10/29/16 01:15 11/28/16 01:14 11/02/16 08:13 25 MG Glucose (Glucose 40% Gel) UD PRN PO 10/29/16 01:30 11/28/16 01:29 Glucose (Glucose Chew Tab) 1 tabs UD PRN PO 10/29/16 01:30 11/28/16 01:29 Dextrose (Dextrose 50% 50ML Syringe) 50 ml UD PRN IV 10/29/16 01:30 11/28/16 01:29 Glucagon (Glucagon Inj) 1 mg UD PRN SQ 10/29/16 01:30 11/28/16 01:29 Hydralazine HCl (HydrALAZINE INJ) 10 mg Q4H PRN IV. 10/29/16 01:30 11/28/16 01:29 10/31/16 00:01 10 MG Ipratropium [place] (Atrovent 0.02% 0.5MG/2.5ML Neb) 0.5 mg Q2H PRN INH 10/29/16 03:45 11/28/16 03:44 Levalbuterol (Xopenex 1.25MG/ 0.5ML Neb) 1.25 mg Q2H PRN INH 10/29/16 03:45 11/28/16 03:44 Miscellaneous Information (Order Awaiting Action) 1 ea QS N/A 10/29/16 08:00 11/28/16 07:59 10/31/16 08:13 1 EA Metoprolol Succinate (Toprol Xl Tab) 100 mg BID PO 10/29/16 09:00 11/28/16 08:59 11/02/16 21:25 100 MG Vitamin B Complex/ Vit C/Folic Acid (Nephrocaps) 1 cap QAM PO 10/30/16 09:00 11/29/16 08:59 11/04/16 07:25 1 CAP Insulin Aspart (novoLOG ASPART) SLIDING SCALE If C... ACHS SC 10/29/16 12:30 11/28/16 12:29 11/04/16 07:38 3 UNITS Silodosin (Rapaflo Cap) 8 mg HS PO 10/30/16 21:00 11/29/16 20:59 11/03/16 20:52 8 MG Insulin Glargine (Lantus Solostar Pen) SEE PROTOCOL TEXT BID SC 10/30/16 17:00 11/29/16 16:59 Future hold 11/03/16 22:43 15 UNITS Miscellaneous Information (Consult Glycemic Management Pharmacy) 1 ea UD PRN N/A 10/30/16 13:00 11/29/16 12:59 Racepinephrine (Raccemic Epinephrine 2.25% 0.5ML Neb) 0.5 ml ONE PRN INH 10/30/16 18:15 Acetaminophen 1000 mg/Empty Bag 100 ml @ 400 mls/hr Q8H PRN IV 10/30/16 18:15 11/29/16 18:14 10/31/16 08:14 400 MLS/HR Magnesium Hydroxide (Milk Of Magnesia Susp) 30 ml DAILY PRN PO 10/30/16 18:15 11/29/16 18:14 Docusate Sodium (coLACE CAP) 100 mg BID PO 10/30/16 21:00 11/29/16 20:59 11/04/16 07:26 100 MG Ondansetron HCl (Zofran Inj) 4 mg Q6 PRN IV 10/30/16 18:15 11/29/16 18:14 11/01/16 12:59 4 MG Lorazepam 0.5 mg/ Syringe 1 ml @ 1 mls/min Q8H PRN IV 10/30/16 18:15 11/29/16 18:14 Acetaminophen/ Hydrocodone Bitart ([place] 5/325 Tab) 1 tablet for pain scale ... Q4H PRN PO 10/30/16 18:15 11/13/16 18:14 11/04/16 06:42 2 TAB Bisacodyl (Dulcolax Supp) 10 mg DAILY PRN [place] 11/01/16 06:00 12/01/16 05:59 Dexamethasone Sodium Phosphate 8 mg/Syringe 2 ml @ 1 mls/min ONE PRN IV 10/30/16 18:15 Naloxone HCl (Narcan Inj) 0.1 mg Q5M PRN IV 10/30/16 18:15 11/29/16 18:14 Aspirin (Ecotrin Tab) 81 mg HS PO 10/30/16 21:00 11/29/16 20:59 11/03/16 20:52 81 MG Nifedipine (Procardia Xl Tab) 90 mg QAM PO 10/31/16 09:00 11/30/16 08:59 11/03/16 07:31 90 MG Bisacodyl (Dulcolax Tab) 5 mg DAILY PRN PO 11/03/16 09:00 12/03/16 08:59 11/03/16 15:25 5 MG Iron Sucrose 100 mg/Syringe 5 ml @ 100 mls/min TODAY@1000 IV 11/04/16 10:00 11/04/16 18:00 Epoetin Hammad (Procrit Inj) 20,000 units MoWeFr@0800 IV 11/04/16 08:00 12/04/16 07:59 Impression (1) ESRD (end stage renal disease) on dialysis (2) Concussion and edema of cervical spinal cord, initial encounter (3) Nasal bone fracture (4) Hypertension (5) Multiple sclerosis (6) Nasal laceration (7) Injury to ligament of cervical spine Mr. Bravo was admitted to the hospital 10/29 following a syncopal event. He completed outpatient dialysis without complication but upon leaving the facility fell and suffered injury to his cervical spine ligaments. He required C5 - C7 cervical discectomy w/ fusion 10/30/16. PMH: ESRD requiring MWF HD at [facility], multiple sclerosis, BPH, AODM, diverticulosis s/p partial colectomy with colostomy Recommendations -- HD today per scheduled -- UF goal ~2 kg -- Tentative plan to go to [facility] -- Continue on Nephrocaps, PhosLo with meal -- Medications are appropriately dosed for renal function -- EPO and iron ordered for HD today for anemia of CKD
[2016-11-04] MEDS: NIFEdipine 30 MG CR TAB PO SCH (14:35)
--- NOTE | 2016-11-04 14:35 | DIAGNOSTIC IMAGING REPORT ---
KUB CLINICAL HISTORY: eval for ongoing constipation, ileus pain COMPARISON STUDY: 11/02/2016 FINDINGS: Soft tissue density overlying the right flank which probably relates to a large renal cyst seen in the CT of 2016. Bowel pattern is considered nonobstructive. This is improved from the prior study. IMPRESSION: 1. Nonobstructive bowel pattern. 2. Soft tissue density overlying the right flank appears represent a large right renal cyst. Electronically signed by: Jorge García M.D. 11/04/2016 2:34 PM Dictated Date/Time: 11/04/2016 2:30 PM
[2016-11-04] MEDS: METOPROLOL SUCC 50MG EXT REL TAB PO SCH ×2 (14:36→21:56)
--- NOTE | 2016-11-04 16:50 | Family Medicine Progress Note ---
Progress Note Date of Service Nov 04, 2016. Subjective Pt evaluation today including: conversation w/ patient, conversation w/ family , physical exam, conversation w/ energy consultant, review of inpatient medication list Pain: controlled PO Intake: good Voiding: no voiding problems Patient had some stool output into his stoma bag this morning He is tolerating a regular diet Decreased difficulty swallowing and right hand function has improved Went for dialysis this morning feels uncomfortable with patient going to [facility] this morning as he is very exhausted Patient denies any abdominal pain, nausea, vomiting, fevers or chills Constitutional: + fatigue, No fever, No chills ENT: No sore throat, No trouble swallowing Respiratory: No cough, No shortness of breath Cardiovascular: No chest pain, No palpitations Abdomen: No pain, No nausea, No vomiting Medications Current Inpatient Medications Medications (Trade) Dose Ordered Sig/Brendan Route Start Time Stop Time Status Last Admin Dose Admin Acetaminophen (Tylenol Tab) 650 mg Q4H PRN PO 10/29/16 01:15 11/28/16 01:14 11/03/16 00:17 650 MG Isosorbide Mononitrate (Imdur Ext Rel Tab) 30 mg QAM PO 10/29/16 09:00 11/28/16 08:59 11/04/16 07:25 30 MG Meclizine HCl (Antivert Tab) 25 mg DAILY PRN PO 10/29/16 01:15 11/28/16 01:14 11/02/16 08:13 25 MG Glucose (Glucose 40% Gel) UD PRN PO 10/29/16 01:30 11/28/16 01:29 Glucose (Glucose Chew Tab) 1 tabs UD PRN PO 10/29/16 01:30 11/28/16 01:29 Dextrose (Dextrose 50% 50ML Syringe) 50 ml UD PRN IV 10/29/16 01:30 11/28/16 01:29 Glucagon (Glucagon Inj) 1 mg UD PRN SQ 10/29/16 01:30 11/28/16 01:29 Hydralazine HCl (HydrALAZINE INJ) 10 mg Q4H PRN IV. 10/29/16 01:30 11/28/16 01:29 10/31/16 00:01 10 MG Ipratropium [place] (Atrovent 0.02% 0.5MG/2.5ML Neb) 0.5 mg Q2H PRN INH 10/29/16 03:45 11/28/16 03:44 Levalbuterol (Xopenex 1.25MG/ 0.5ML Neb) 1.25 mg Q2H PRN INH 10/29/16 03:45 11/28/16 03:44 Miscellaneous Information (Order Awaiting Action) 1 ea QS N/A 10/29/16 08:00 11/28/16 07:59 10/31/16 08:13 1 EA Metoprolol Succinate (Toprol Xl Tab) 100 mg BID PO 10/29/16 09:00 11/28/16 08:59 11/04/16 14:36 100 MG Vitamin B Complex/ Vit C/Folic Acid (Nephrocaps) 1 cap QAM PO 10/30/16 09:00 11/29/16 08:59 11/04/16 07:25 1 CAP Insulin Aspart (novoLOG ASPART) SLIDING SCALE If C... ACHS SC 10/29/16 12:30 11/28/16 12:29 11/04/16 16:07 3 UNITS Silodosin (Rapaflo Cap) 8 mg HS PO 10/30/16 21:00 11/29/16 20:59 11/03/16 20:52 8 MG Insulin Glargine (Lantus Solostar Pen) SEE PROTOCOL TEXT BID SC 10/30/16 17:00 11/29/16 16:59 Future hold 11/03/16 22:43 15 UNITS Miscellaneous Information (Consult Glycemic Management Pharmacy) 1 ea UD PRN N/A 10/30/16 13:00 11/29/16 12:59 Racepinephrine (Raccemic Epinephrine 2.25% 0.5ML Neb) 0.5 ml ONE PRN INH 10/30/16 18:15 Acetaminophen 1000 mg/Empty Bag 100 ml @ 400 mls/hr Q8H PRN IV 10/30/16 18:15 11/29/16 18:14 10/31/16 08:14 400 MLS/HR Magnesium Hydroxide (Milk Of Magnesia Susp) 30 ml DAILY PRN PO 10/30/16 18:15 11/29/16 18:14 Docusate Sodium (coLACE CAP) 100 mg BID PO 10/30/16 21:00 11/29/16 20:59 11/04/16 07:26 100 MG Ondansetron HCl (Zofran Inj) 4 mg Q6 PRN IV 10/30/16 18:15 11/29/16 18:14 11/01/16 12:59 4 MG Lorazepam 0.5 mg/ Syringe 1 ml @ 1 mls/min Q8H PRN IV 10/30/16 18:15 11/29/16 18:14 Bisacodyl (Dulcolax Supp) 10 mg DAILY PRN [place] 11/01/16 06:00 12/01/16 05:59 Dexamethasone Sodium Phosphate 8 mg/Syringe 2 ml @ 1 mls/min ONE PRN IV 10/30/16 18:15 Naloxone HCl (Narcan Inj) 0.1 mg Q5M PRN IV 10/30/16 18:15 11/29/16 18:14 Aspirin (Ecotrin Tab) 81 mg HS PO 10/30/16 21:00 11/29/16 20:59 11/03/16 20:52 81 MG Nifedipine (Procardia Xl Tab) 90 mg QAM PO 10/31/16 09:00 11/30/16 08:59 11/04/16 14:35 90 MG Bisacodyl (Dulcolax Tab) 5 mg DAILY PRN PO 11/03/16 09:00 12/03/16 08:59 11/03/16 15:25 5 MG Iron Sucrose 100 mg/Syringe 5 ml @ 100 mls/min TODAY@1000 IV 11/04/16 10:00 11/04/16 18:00 11/04/16 11:58 100 MLS/MIN Epoetin Hammad (Procrit Inj) 20,000 units MoWeFr@0800 IV 11/04/16 08:00 12/04/16 07:59 11/04/16 12:06 20,000 UNITS Acetaminophen/ Hydrocodone Bitart ([place] 5/325 Tab) 1 tab Q6 PRN PO 11/04/16 18:00 11/13/16 18:14 Dexamethasone (Decadron Tab) 4 mg Q6 PO 11/04/16 18:00 12/04/16 17:59 Dutasteride (Avodart) 0.5 mg DAILY PO 11/05/16 09:00 12/05/16 08:59 UNV Objective Vital Signs Date Time Temp Pulse Resp B/P (MAP) Pulse Ox O2 Delivery O2 Flow Rate FiO2 11/04/16 15:48 80 16 97 Room Air 11/04/16 15:04 36.5 93 18 145/67 (93) 98 Room Air 11/04/16 14:33 36.8 90 16 152/66 (94) 97 Room Air 11/04/16 13:40 36.6 87 147/50 (82) 11/04/16 13:15 87 113/66 11/04/16 13:00 83 129/55 11/04/16 12:45 86 130/61 11/04/16 12:30 83 125/55 11/04/16 12:15 85 134/62 11/04/16 12:00 81 123/62 11/04/16 11:45 81 126/62 11/04/16 11:30 79 127/59 11/04/16 11:15 78 133/57 11/04/16 11:00 78 127/58 11/04/16 10:45 82 122/61 11/04/16 10:30 78 124/59 11/04/16 10:15 79 126/62 11/04/16 10:00 76 140/60 11/04/16 09:45 77 132/60 11/04/16 09:30 75 129/60 11/04/16 09:22 74 131/63 11/04/16 09:15 36.6 75 128/61 (83) 11/04/16 07:20 Room Air 11/04/16 07:01 79 16 97 Room Air 11/04/16 06:24 36.6 77 16 119/55 (76) 97 Room Air 11/04/16 03:20 81 16 98 Room Air 11/03/16 23:25 Room Air 11/03/16 23:15 67 16 95 Room Air 11/03/16 23:00 36.3 66 16 127/59 (81) 98 Room Air 11/03/16 20:47 65 112/62 (79) 11/03/16 19:10 75 18 97 Room Air Physical Exam General Appearance: WD/WN, no apparent distress ENT: hearing grossly normal, pharynx normal Neck: + pertinent finding (patient with neck brace on and bandage over anterior neck) Respiratory/Chest: lungs clear, no respiratory distress, no accessory muscle use Cardiovascular: regular rate, rhythm, no JVD, no murmur Abdomen: normal bowel sounds, non tender, soft, + pertinent finding (stoma bag in LLQ with stool in bag) Extremities: non-tender, no pedal edema, normal capillary refill 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 Pichardo (10/30) and nasal fx/laceration. Patient was planned to go to [facility] yesterday but has an Ileus. Will start aggressive bowel regimen to help move bowels and have suggested decrease pain meds to decrease constipation S/P C5-C7 Anterior Cervical Discectomy and Fusion - tolerated procedure - pain control with norco, decreased dose to 5mg - racemic epi and hydrocortisone on hold if stridor present - order decadron 4mg q6 to decrease surgery inflammation - f/u with [facility] in 7 days Ileus - repeat KUB showed improved stool load moved to left side of colon and decreased stool burden - changed diet to full diet - aggressive bowel regimen with daily miralax and dulcolax HTN - BP controlled - c/w Metoprolol, Nifedipine, Isosorbide Nasal Laceration - consent obtained to remove sutures at the bedside - sutures removed today Elevated LFTS - Chronic, mild - Continue to monitor - haemochromatosis? ESRD -Nephrology on board -Had Dialysis yesterday tolerated well -Electrolytes appropriate - c/w current dialysis regimen - patient on aspirin T2DM: - Glycemic consult Anemia - likely due to ESRD - continue monitoring H/H - Per Nephrology, will get Erythropoietin stim. agents during dialysis Disposition: - has a place to stay in [place] - Likely DC tomorrow Resident Physician Supervision Note: I was present with PGY2 Dr. Gilberto Fairchild during the history and exam. I discussed the case with the resident and agree with the findings and plan as documented in the note. Any exceptions or clarifications are listed here: none. Tolerating diet w/o nausea/emesis. +stool/gas per colostomy. No abd bloating. He is very tired today. Still having significant pain in neck, right hip. Right hand dysfunction slightly better. VSS no fever gen - nad but tired appearing (just received norco for pain) neck - anterior neck with dressing intact, no obvious hematoma, no JVD heart - RRR, s1, s2 lungs - CTA b/l abd - colostomy left abdomen - bag with copious gas/stool; mild distension resolved ext - no edema skin - laceration well-healed on nasal bridge; sutures removed by Dr. Fairchild under my supervision A/P: 1. s/p C5-C7 anterior cervical diskectomy with fusion due to instability and significant ligament tear 2. post-op ileus vs severe constipation/stasis from narcotics - resolved 3. ESRD on HD - M/W/ 4. MS 5. UC 6. abnormal LFTs - chronic - cause uncertain; Hepatitis titers 2016 negative; LETY negative; ferritin high but Fe sat acceptable 7. nondisplaced nasal fractures - ENT follow-up will be advised 8. left apex 7mm lung nodule 9. nasal bridge laceration s/p repair - healed, sutures removed 10. 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 Pichardo - plan to add decadron due to ongoing neck pain/right hand neuropathic symptoms - steroids may help d/c in to [facility] Documented By: Gordon Person MD Continued [facility] stay due to: ambulation difficulties
[2016-11-04] MEDS ORDERED: POLYETHYLENE (MIRALAX) 17 GM PACK PO ONE (17:00)
[2016-11-04] MEDS ORDERED: HYDROCODONE/ACETAMOPHEN 5/325MG TAB PO PRN (18:00)
[2016-11-04] MEDS: DEXAMETHASONE 4 MG TAB PO SCH (18:31)
[2016-11-04] MEDS: ASPIRIN 81 MG ECTAB PO SCH (21:56)
[2016-11-05] MEDS: DEXAMETHASONE 4 MG TAB PO SCH ×3 (00:25→12:44)
[2016-11-05 06:47] LABS: HEMATOCRIT 27.6 % (42-52)
[2016-11-05 07:14] LABS: BUN/CREATININE RATIO 7.6 (10-20); CALCIUM 8.9 mg/dl (8.5-10.1); CREATININE 4.1 mg/dl (0.60-1.40); PHOSPHORUS 4.2 mg/dl (2.5-4.9); POTASSIUM 4.2 mmol/L (3.5-5.1)
[2016-11-05 08:23] VITALS: BP 162/72; PULSE 84; TEMP 36.8; O2SAT 96
[2016-11-05 08:54] VITALS: O2SAT 96
[2016-11-05] MEDS ORDERED: POLYETHYLENE (MIRALAX) 17 GM PACK PO SCH (09:00)
[2016-11-05] MEDS ORDERED: BISACODYL 5 MG TABEC PO SCH (09:00)
[2016-11-05] MEDS ORDERED: DUTASTERIDE 0.5MG PO SCH ×2 (09:00)
[2016-11-05] MEDS: NEPHROCAPS PO SCH (09:23)
[2016-11-05] MEDS: ISOSORBIDE MONONITRATE 30 MG TABCR PO SCH (09:23)
[2016-11-05] MEDS: DOCUSATE SODIUM 100 MG CAP PO SCH (09:23)
[2016-11-05] MEDS: METOPROLOL SUCC 50MG EXT REL TAB PO SCH (09:24)
[2016-11-05] MEDS: NIFEdipine 30 MG CR TAB PO SCH (09:24)
[2016-11-05] MEDS: INSULIN ASPART 100 UNITS/ML 3 ML PEN SC SCH ×2 (09:38→12:49)
[2016-11-05] MEDS: INSULIN GLARGINE SOLOSTAR 100 UNITS/ML 3 ML PEN SC SCH (09:39)
--- NOTE | 2016-11-05 10:11 | Nephrology Progress Note ---
Nephrology Progress Note Date of Service Nov 05, 2016. Chief Complaint ESRD Subjective No acute events overnight. No complaints this morning. Pain controlled. Naveen tolerated HD well yesterday; net UF 2 kg. He denies shortness of breath. Review of Systems A complete review of systems was performed. Pertinent positives are noted above. All other systems are negative. Vital Signs Last 8 Hrs Date Time Temp Pulse Resp B/P (MAP) Pulse Ox O2 Delivery O2 Flow Rate FiO2 11/05/16 08:54 96 Room Air 11/05/16 08:23 36.8 84 16 162/72 (102) 96 Room Air Last Recorded Weight Weight (Kilograms): 84.200 Physical Exam General Appearance: WD/WN, no apparent distress Head: normocephalic, atraumatic Eyes: normal inspection, sclerae normal ENT: normal ENT inspection, pharynx normal Neck: + pertinent finding (cervical collar) Respiratory/Chest: lungs clear, no respiratory distress, no accessory muscle use Cardiovascular: regular rate, rhythm, + systolic murmur Abdomen/GI: non tender, soft Extremities/Musculoskelatal: normal inspection, no pedal edema Neurologic/Psych: alert, oriented x 3 Family History Hypertension Social History Smoking Status: Never smoker Smokeless Tobacco Use: No Alcohol Use: none Drug Use: none Marital Status: Housing Status: lives with family Occupation: retired Laboratory Results Past 24 Hours 11/05/16 06:09 11/05/16 06:09 Test 11/04/16 14:33 11/04/16 16:58 11/04/16 20:45 11/05/16 06:09 Bedside Glucose 96 mg/dl (70-99) 164 mg/dl (70-99) 173 mg/dl (70-99) Anion Gap 9.0 mmol/L (3-11) Est Creatinine Clear Calc Drug Dose 17.3 ml/min Estimated GFR () 16.2 Estimated GFR (Non- 14.0 BUN/Creatinine Ratio 7.6 (10-20) Calcium Level 8.9 mg/dl (8.5-10.1) Phosphorus Level 4.2 mg/dl (2.5-4.9) Albumin 2.3 gm/dl (3.4-5.0) Test 11/05/16 08:04 Bedside Glucose 180 mg/dl (70-99) Allergies Coded Allergies: No Known Allergies (Verified , 6/27/17) Medications Current Inpatient Medications Medications (Trade) Dose Ordered Sig/Brendan Route Start Time Stop Time Status Last Admin Dose Admin Acetaminophen (Tylenol Tab) 650 mg Q4H PRN PO 10/29/16 01:15 11/28/16 01:14 11/03/16 00:17 650 MG Isosorbide Mononitrate (Imdur Ext Rel Tab) 30 mg QAM PO 10/29/16 09:00 11/28/16 08:59 11/05/16 09:23 30 MG Meclizine HCl (Antivert Tab) 25 mg DAILY PRN PO 10/29/16 01:15 11/28/16 01:14 11/02/16 08:13 25 MG Glucose (Glucose 40% Gel) UD PRN PO 10/29/16 01:30 11/28/16 01:29 Glucose (Glucose Chew Tab) 1 tabs UD PRN PO 10/29/16 01:30 11/28/16 01:29 Dextrose (Dextrose 50% 50ML Syringe) 50 ml UD PRN IV 10/29/16 01:30 11/28/16 01:29 Glucagon (Glucagon Inj) 1 mg UD PRN SQ 10/29/16 01:30 11/28/16 01:29 Hydralazine HCl (HydrALAZINE INJ) 10 mg Q4H PRN IV. 10/29/16 01:30 11/28/16 01:29 10/31/16 00:01 10 MG Ipratropium [place] (Atrovent 0.02% 0.5MG/2.5ML Neb) 0.5 mg Q2H PRN INH 10/29/16 03:45 11/28/16 03:44 Levalbuterol (Xopenex 1.25MG/ 0.5ML Neb) 1.25 mg Q2H PRN INH 10/29/16 03:45 11/28/16 03:44 Metoprolol Succinate (Toprol Xl Tab) 100 mg BID PO 10/29/16 09:00 11/28/16 08:59 11/05/16 09:24 100 MG Vitamin B Complex/ Vit C/Folic Acid (Nephrocaps) 1 cap QAM PO 10/30/16 09:00 11/29/16 08:59 11/05/16 09:23 1 CAP Insulin Aspart (novoLOG ASPART) SLIDING SCALE If C... ACHS SC 10/29/16 12:30 11/28/16 12:29 11/05/16 09:38 5 UNITS Silodosin (Rapaflo Cap) 8 mg HS PO 10/30/16 21:00 11/29/16 20:59 11/04/16 21:54 8 MG Insulin Glargine (Lantus Solostar Pen) SEE PROTOCOL TEXT BID SC 10/30/16 17:00 11/29/16 16:59 Future hold 11/05/16 09:39 15 UNITS Miscellaneous Information (Consult Glycemic Management Pharmacy) 1 ea UD PRN N/A 10/30/16 13:00 11/29/16 12:59 Racepinephrine (Raccemic Epinephrine 2.25% 0.5ML Neb) 0.5 ml ONE PRN INH 10/30/16 18:15 Acetaminophen 1000 mg/Empty Bag 100 ml @ 400 mls/hr Q8H PRN IV 10/30/16 18:15 11/29/16 18:14 10/31/16 08:14 400 MLS/HR Magnesium Hydroxide (Milk Of Magnesia Susp) 30 ml DAILY PRN PO 10/30/16 18:15 11/29/16 18:14 Docusate Sodium (coLACE CAP) 100 mg BID PO 10/30/16 21:00 11/29/16 20:59 11/05/16 09:23 100 MG Ondansetron HCl (Zofran Inj) 4 mg Q6 PRN IV 10/30/16 18:15 11/29/16 18:14 11/01/16 12:59 4 MG Lorazepam 0.5 mg/ Syringe 1 ml @ 1 mls/min Q8H PRN IV 10/30/16 18:15 11/29/16 18:14 Bisacodyl (Dulcolax Supp) 10 mg DAILY PRN [place] 11/01/16 06:00 12/01/16 05:59 Dexamethasone Sodium Phosphate 8 mg/Syringe 2 ml @ 1 mls/min ONE PRN IV 10/30/16 18:15 Naloxone HCl (Narcan Inj) 0.1 mg Q5M PRN IV 10/30/16 18:15 11/29/16 18:14 Aspirin (Ecotrin Tab) 81 mg HS PO 10/30/16 21:00 11/29/16 20:59 11/04/16 21:56 81 MG Nifedipine (Procardia Xl Tab) 90 mg QAM PO 10/31/16 09:00 11/30/16 08:59 11/05/16 09:24 90 MG Epoetin Hammad (Procrit Inj) 20,000 units MoWeFr@0800 IV 11/04/16 08:00 12/04/16 07:59 11/04/16 12:06 20,000 UNITS Acetaminophen/ Hydrocodone Bitart ([place] 5/325 Tab) 1 tab Q6 PRN PO 11/04/16 18:00 11/13/16 18:14 Dexamethasone (Decadron Tab) 4 mg Q6 PO 11/04/16 18:00 12/04/16 17:59 11/05/16 05:31 4 MG Dutasteride (Avodart) 0.5 mg DAILY PO 11/05/16 09:00 12/05/16 08:59 11/05/16 09:25 0.5 MG Polyethylene (Miralax Powder Packet) 17 gm DAILY PO 11/05/16 09:00 12/05/16 08:59 11/05/16 09:23 17 GM Bisacodyl (Dulcolax Tab) 5 mg DAILY PO 11/05/16 09:00 12/03/16 08:59 11/05/16 09:30 5 MG Impression (1) ESRD (end stage renal disease) on dialysis (2) Concussion and edema of cervical spinal cord, initial encounter (3) Nasal bone fracture (4) Hypertension (5) Multiple sclerosis (6) Nasal laceration (7) Injury to ligament of cervical spine Mr. Bravo was admitted to the hospital 10/29 following a syncopal event. He completed outpatient dialysis without complication but upon leaving the facility fell and suffered injury to his cervical spine ligaments. He required C5 - C7 cervical discectomy w/ fusion 10/30/16. PMH: ESRD requiring MWF HD at [facility], multiple sclerosis, BPH, AODM, diverticulosis s/p partial colectomy with colostomy Recommendations -- HD MWF -- BP and volume status currently appropriate -- Metabolic profile acceptable -- Tentative plan to go to [facility] today -- Continue on Nephrocaps, PhosLo with meal -- Medications are appropriately dosed for renal function -- EPO and iron given with HD yesterday
[2016-11-05 10:58] VITALS: BP 150/63; PULSE 84; TEMP 36.8; O2SAT 96
[2016-11-05] MEDS ORDERED: DXM4 PO ×2 (11:26→11:57)
[2016-11-05] MEDS ORDERED: NVLGIPEN SC (11:56)
[2016-11-05] MEDS ORDERED: INSDGIPEN SC (11:56)
[2016-11-05] MEDS ORDERED: HYDR-5688 PO (11:56)
[2016-11-05 12:25] VITALS: BP 150/63; PULSE 82; TEMP 36.9; O2SAT 97
--- NOTE | 2016-11-05 18:15 | Discharge Summary ---
Discharge Summary Date of Service Nov 05, 2016. (Gilberto Fairchild MD) Discharge Summary Admission Date: Oct 29, 2016 at 01:24 Discharge Date: Nov 05, 2016 Discharge Disposition: Rehab Principal Diagnosis: Cervical Disectomy and Fusion Problems/Secondary Diagnoses: (1) Abnormal LFTs (liver function tests) Status: Chronic (2) BPH (benign prostatic hyperplasia) Status: Chronic (3) Diabetes Status: Chronic (4) Hypertension Status: Chronic (5) Multiple sclerosis Status: Chronic (6) Renal failure (ARF), acute on chronic Status: Chronic (7) Status post colostomy Status: Chronic Immunizations: Have You Had Influenza Vaccine: Yes Influenza Vaccine Date: Feb 08, 2005 History of Tetanus Vaccine?: No History of Pneumococcal: Yes Pneumococcal Date: Jul 10, 2003 History of Hepatitis B Vaccine: Yes Hepatitis Immunization Date: Jul 09, 2004 Procedures: C5-C7 with cervical disectomy and fusion Consultations: Orthopaedics Nephrology Critical care Neurology (Gilberto Fairchild MD) Problems/Secondary Diagnoses: 1. anterior longitudinal ligament tear 2. constipation - resolved 3. ileus - resolved 4. colostomy status 5. ESRD on HD 6. 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 No fracture or subluxation within the cervical spine. 2. There is a focal tear through the anterior longitudinal ligament at the C6-C7 disc space level with increased T2 signal within the anterior C6-C7 disc space consistent with an acute injury. There is also mild edema at the C6-C7 ligamentum flavum consistent with a tear. 3. Scattered foci of T2 hyperintensity within the cervical spinal cord are again noted and is consistent with the patient's history of multiple sclerosis. However, there is progressive T2 hyperintensity within the cord at the C6-C7 level. This is concerning for acute posttraumatic cord edema given the adjacent ligamentous injury. 4. Mild edema within the C3-C6 interspinous locations suggestive of ligamentous injury. 5. Broad-based posterior disc osteophyte complex with a tiny focal central disc protrusion at C6-C7. This has progressed from the prior study and may be due to the acute injury. This slightly deforms anterior cord. (Gordon Person MD) Medication Reconciliation New Medications: Dexamethasone (Dexamethasone) 4 Mg Tab 4 MG PO Q6 for 3 Days, #12 TAB Take 3 tabs for days 1 and 2 Take 2 tabs for day 3 Take 1 tab for day 4 Hydrocodone/Acetaminophen 5MG/325MG ([place] 5MG/325MG) Tab 1 TAB PO Q6 PRN for pain for 14 Days, #56 TAB PRN PAIN Insulin Aspart (Novolog Flexpen) 100 Units/Ml Inj 0 UNITS SC ACHS for 30 Days, #30 Use correction factor of 25 and carb ratio of 1 unit for every 10 grams of carbs. Goal range 100-150 Changed Medications: Insulin Glargine (Lantus Solostar) 100 Unit/Ml Inj 20 UNITS SC BID for 30 Days, #1 PEN (Changed from: 60 UNITS; QAM) Continued Medications: Aspirin (Aspirin Ec) 81 Mg Tab 81 MG PO HS Dutasteride (Avodart) 0.5 Mg Cap 0.5 MG PO HS, CAP Ergocalciferol (Vitamin D 38485 Unit) 50,000 Unit Cap 44304 INTER.UNIT PO MONTHLY, CAP TAKE THIS MEDICATION THE FIRST OF EVERY MONTH Isosorbide Mononitrate Ext Rel (Imdur Ext Rel) 30 Mg Ertab 30 MG PO QAM, TAB Meclizine Hcl (Meclizine Hcl) 25 Mg Tab 25 MG PO UD PRN for Dizziness or Vertigo, TAB Metoprolol Succinate (Toprol Xl) 200 Mg Tab 200 MG PO QAM, TAB Multivitamin (Multivitamin) Tab 1 TAB PO QPM, TAB Nifedipine (Nifedipine Er) 90 Mg Tab 90 MG PO QAM Silodosin (Rapaflo) 8 Mg Cap 8 MG PO HS, CAP Discontinued Medications: Oxycodone/Acetaminophen 5MG/325MG (Percocet 5MG/325MG) Tab 1 TABLET PO Q4H PRN for Pain, #30 TAB Discharge Exam Patient doing well overnight Patient did not use any pain meds Moving bowels into stoma bag Neck pain improving, rates as 5/10 Review of Systems: Constitutional: No fever, No chills ENT: No hearing loss, No sore throat, No trouble swallowing Respiratory: No cough, No shortness of breath, No dyspnea on exertion Cardiovascular: No chest pain, No edema, No palpitations Abdomen: No pain, No nausea, No vomiting, No diarrhea, No constipation Musculoskeletal: + joint pain, No muscle pain, No swelling Neurologic: + numbness/tingling (in right arm), No memory loss, No paralysis , No weakness Integumentary: No rash, No itch, No new/changing skin lesions Physical Exam: General Appearance: WD/WN, no apparent distress Eyes: normal inspection ENT: hearing grossly normal, pharynx normal Neck: no JVD, no carotid bruits, + pertinent finding (bandage over anterior neck) Respiratory/Chest: lungs clear, normal breath sounds, no respiratory distress, no accessory muscle use Cardiovascular: regular rate, rhythm, no murmur, normal peripheral pulses Abdomen / GI: normal bowel sounds, non tender, soft, + pertinent finding ( stoma bag in LLQ) Extremities: normal inspection, no calf tenderness, no pedal edema, non- tender Neurologic/Psychiatric: therapist occupational II-XII nml as tested, no motor/sensory deficits , alert, normal mood/affect, oriented x 3 Skin: normal color, warm/dry, no rash (Gilberto Fairchild MD) Hospital Course The patient is a 66-year-old male with PMH including multiple sclerosis, and end -stage renal disease on hemodialysis, who fell forward while walking with his walker as he was leaving the dialysis, and his who witnessed the fall, report that he hit the front of his face on the wall and slid down the wall and that his face again on a railing attached to wall. He did experience a nose bleed, bilateral upper extremities were numb, tingly and painful. He was brought to the ED on October 29 2016. In the ED he had an MRI of the spine which showed a tear through the anterior longitudinal ligament at the C6-C7 disc space level and edema at the ligamentum flavum. Maxillofacial CT showed mild nasal soft tissue swelling and a small laceration. He was placed in a cervical neck collar and had sutures placed for his nasal laceration. Orthopedics were consulted who saw the patient and on October 30 took the patient to the OR for a C5-C7 Anterior Cervical Discectomy and Fusion. He went to the ICU post op for further management. He received IV pain medications in the ICU and was given decadron to decrease the swelling in his neck. He was transitioned to the floors on October 31. The pain progressed well and on October 03 on day of discharge he was found to have an ileus as he had not passed gas into his stoma bag and was feeling nauseated when eating. He had a KUB which showed a large stool burden and was started on an aggressive bowel regimen of dulcolax and miralax. On November 03 he started having a bowel movement and started feeling better. He was transitioned to a regular diet and his narcotics were decreased to prevent further constipation. He was also given decadron PO to decrease the swelling in his neck and improve function in his left hand. He was discharged on November 05 hemodynamically stable and in no acute distress. He will need follow up CT in 2-3 months for a lung nodule found on CT scan in the ED. He will also be following in Dr. Nur office neck Wednesday. S/P C5-C7 Anterior Cervical Discectomy and Fusion - pain control with norco, decreased dose to 5mg - decadron wean for 3 days - f/u with [facility] in Wednesday Ileus - aggressive bowel regimen with daily miralax and dulcolax HTN - BP controlled - c/w Metoprolol, Nifedipine, Isosorbide Nasal Laceration - sutures removed Elevated LFTS - Chronic, mild - Continue to monitor - haemochromatosis? ESRD - Regular Dialysis -Electrolytes appropriate - c/w current dialysis regimen T2DM - discharged on long acting insulin and ISS for coverage Anemia - continue monitoring H/H - Per Nephrology, will get Erythropoietin stim. agents during dialysis Total Time Spent: Less than 30 minutes This includes examination of the patient, discharge planning, medication reconciliation, and communication with other providers. (Gilberto Fairchild .MD) Resident Physician Supervision Note: I was present with PGY2 Dr. Gilberto Fairchild during the discharge history and exam. I discussed the case with the resident and agree with the findings and plan as documented in the discharge summary. Any exceptions or clarifications are listed here: neuropathy/pain is in right hand, not left hand. 66yo male with T1DM, ESRD on HD, and multiple sclerosis who presented with a cervical spine injury following a fall as he was leaving dialysis. Suffered multiple injuries including a tear of the anterior longitudinal ligament, a tear of the ligamentum flavum, and associated cord edema. He was seen in consult by Dr. Rivera Pichardo from orthopedics who recommended cervical discectomy with fusion. He underwent C5-C7 Anterior Cervical Discectomy and Fusion with right iliac crest bone graft and was monitored post-op in the ICU for a short period of time. His course was complicated by constipation/ileus, fatigue due to narcotic pain medication, and right hand pain/numbness/dysfunction due to the cervical spine injury. Nephrology assisted with his hemodialysis needs. 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 Fairchild) to the receiving physician at [facility] where he transferred for rehab Documented By: Gordon Person MD Total Time Spent: Greater than 30 minutes (Gordon Person MD) Discharge Instructions Please refer to the electronic Patient Visit Report (Discharge Instructions) for additional information. (Gilberto Fairchild MD) Additional Copies To [facility], [facility]; Elyse Smith M.D.; Rivera Pichardo,
--- NOTE | 2016-11-07 02:45 | DIAGNOSTIC IMAGING REPORT ---
INTRAOPERATIVE RADIOGRAPH CLINICAL HISTORY: C5-C7 spinal fusion. Fluoroscopy time: 3 seconds. FINDINGS: A single spot fluoroscopic view of the cervical spine is presented. There is evidence of anterior fusion in the lower cervical spine. The orthopedic hardware is intact as imaged. An endotracheal tube is in place. IMPRESSION: Intraoperative image from anterior cervical spinal fusion as above. See operative report for detailed findings. Electronically signed by: Seun Aldana M.D. 10/30/2016 5:55 PM Dictated Date/Time: 10/30/2016 5:54 PM
--- NOTE | 2016-11-18 07:02 | Medical Consult ---
Consultation Note Date of Service Nov 18, 2016. Consultation Note On vacation. No one notified answering service for [employer] coverage.
[2017-01-18] MEDS ORDERED: INSDGI SC (07:57)
[2017-01-18] MEDS ORDERED: CALC667C4 PO (07:57)
== END 2016-11-05 13:50 | DRG 28 ==
LOC: EDBD 18:57 → C.EDB 19:00 → UNDOADMIN 10-29 01:24 → C.MED 10-29 01:24 → ENRESERV 10-29 01:51 → C.MED 10-30 20:12 → C.MSICU 10-30 20:12 → EDBEDREQSVC 10-31 09:56 → ENRESERV 10-31 10:18 → C.3E 10-31 10:51 → C.MSICU 10-31 10:51 → C.MSW 11-03 13:25
PROVIDERS: ADMIT Hospitalist; ATTEND Internal Medicine
PROC: 0HQ1XZZ Repair Face Skin, External Approach (ICD-10-PCS; 2016-10-28)
PROC: 0RT30ZZ Resection of Cervical Vertebral Disc, Open Approach (ICD-10-PCS; principal; 2016-10-30 07:30)
PROC: 0QB20ZZ Excision of Right Pelvic Bone, Open Approach (ICD-10-PCS; principal; 2016-10-30 07:30)
PROC: 0RG207J Fusion of 2 or more Cervical Vertebral Joints with Autologous Tissue Substitute, Posterior Approach, Anterior Column, Open Approach (ICD-10-PCS; principal; 2016-10-30 07:30)
PROC: 4A1004G Monitoring of Central Nervous Electrical Activity, Intraoperative, Open Approach (ICD-10-PCS; principal; 2016-10-30 07:30)
DX: S14.0XXA Concussion and edema of cervical spinal cord, initial encounter (principal); N18.6 End stage renal disease; S02.2XXB Fracture of nasal bones, initial encounter for open fracture; I13.11 Hypertensive heart and chronic kidney disease without heart failure, with stage 5 chronic kidney disease, or end stage renal disease; S13.4XXA Sprain of ligaments of cervical spine, initial encounter; S13.171A Dislocation of C6/C7 cervical vertebrae, initial encounter; R55 Syncope and collapse; R91.1 Solitary pulmonary nodule; D63.1 Anemia in chronic kidney disease; K72.90 Hepatic failure, unspecified without coma; E11.9 Type 2 diabetes mellitus without complications; G35 Multiple sclerosis; N40.0 Benign prostatic hyperplasia without lower urinary tract symptoms; I25.10 Atherosclerotic heart disease of native coronary artery without angina pectoris; Z79.899 Other long term (current) drug therapy; Z79.4 Long term (current) use of insulin; Z98.890 Other specified postprocedural states; Z99.2 Dependence on renal dialysis; Z93.3 Colostomy status; Z82.49 Family history of ischemic heart disease and other diseases of the circulatory system; W18.39XA Other fall on same level, initial encounter; Y93.01 Activity, walking, marching and hiking; Y92.538 Other ambulatory health services establishments as the place of occurrence of the external cause; Y99.8 Other external cause status

== ENCOUNTER → 2016-12-22 | Day surgery (SDC) | payer OTHER ==
[~2016-12-22] VITALS: Ht 175.3 cm; Wt 82.0 kg
[~2016-12-22] MED LIST changes: +CALC667C4 PO; +CEFAZOLIN 1000MG/55 ML D5W IV SCH; +D5W AND 1/4NSS 1000 ML IV SCH; +DXM4 PO; +FENTANYL CITRATE INJ 50 MCG/1 ML 2 ML VIAL ONE; +HYDR-5688 PO; -IMDSR30 PO; +INSDGI SC; +INSDGIPEN SC; +ISOS30TA3 PO; +LIDOCAINE HCL 1% 20 ML VIAL INJ ONE; -METO1TAB69 PO; +METO1TAB70 PO; +MIDAZOLAM HCL 1 MG/ML 2ML VIAL ONE; -NIFE30TA83 PO; +NIFE90TA27 PO; +NVLGIPEN SC; -OXYC-57 PO
--- NOTE | 2016-12-22 06:11 | History and Physical ---
History & Physical Date of Service Dec 22, 2016. History & Physical ESRD, post basilic vein fistula creation, functioning fistula History of Present Illness The patient is a 66 year old male with HTN, admitted with acute on chronic renal failure, and had a permcath inserted for dialysis. He then had permament fistula creation. This was a left upper arm basilic vein fistula and transposition. The fistula is working well. Pt states feeling fine. He is now admitted for a transposition and possible revision due to a stenosis seen on ultrasoundDenies LEWIS, fever, chills, chest pain, SOB, abd pain, N/v, rest pain, claudication, other complaints. Allergies Coded Allergies: No Known Allergies (Verified , 07/20/16) Home Medications Scheduled Acetaminophen (Tylenol), 1 TAB PO PRN Aspirin (Aspirin Ec), 81 MG PO HS Atorvastatin (Lipitor), 20 MG PO HS Dutasteride (Avodart), 0.5 MG PO HS Ergocalciferol (Vitamin D 32333 Unit), 50,000 UNIT PO MONTH Hctz/Losartan (Hyzaar 25MG/100MG), 1 TAB PO QAM Insulin Glargine (Lantus Solostar), 68 SC BID Interferon Beta-1A (Rebif), 0.5 ML INJ 3XWEEK Isosorbide Mononitrate Ext Rel (Imdur Ext Rel), 30 MG PO QAM Meclizine Hcl (Meclizine Hcl), 1 TAB PO PRN Metoprolol Succ (Toprol Xl) (Toprol-Xl ), 200 MG PO QAM Multivitamin (Multivitamin), 1 TAB PO QPM Nifedipine Ext Rel (Procardia Xl Ext Rel), 90 MG PO QAM Silodosin (Rapaflo), 1 CAP PO HS Problem List Medical Problems: (1) Abnormal LFTs (liver function tests) (2) BPH (benign prostatic hyperplasia) (3) Diabetes (4) Hypertension (5) Multiple sclerosis (6) Proteinuria (7) Renal failure (ARF), acute on chronic Surgical / Medical History Hx Cardiac Surgery: No Hx Abdominal Surgery: Yes (colostomy, colostomy repair, hernia, appendectomy) Hx Cancer Surgery: No Hx Thoracic Surgery: No Hx Orthopedic: No Hx Urinary Tract Surgery: No HX Other Surgery: No Past Medical/Surgical History: Hypertension Family History + HTN Social History Smoking Status: Never Smoker Hx Tobacco Use In Past Year?: No Hx Alcohol Use - Type & Amnt: Yes (rare-single beer) Hx Substance Use -Type & Amnt: No Review of Systems Constitutional: No chills, No fever, No malaise Skin: No change in color Eyes: No visual changes ENMT: No sore throat Respiratory: No PHELPS, No cough, No hemoptysis, No short of breath Cardiovascular: No chest pain, No chest pressure, No edema, No intermittent claudication, No syncope Gastrointestinal: No abdominal pain, No nausea Neurologic: No dizziness, No headache, No lethargy, No numbness, No tingling Physical Exam Constitutional: General Apperance: heathly-appearing, well-nourished, well-developed Level of Distress: NAD Psychiatric: Mental Status: active & alert, normal mood, normal affect Orientation: oriented except where noted, to time, to place, to person Memory: recent memory normal, remote memory normal Head: normocephalic, atraumatic Eyes: EOM: EOMI ENMT: normal ENT inspection, hearing grossly normal Neck: supple, trachea midline Lungs: Respiratory effort: no dyspnea Auscultation: no wheezing, no rales/crackles, no rhonchi, decreased breath sounds Cardiovascular: Apical Impulse: not displaced Heart Auscultation: RRR, no rubs, no gallops Peripheral Pulses: Pulses: full and equal, in all extremities except if noted Bruits: none appreciated Carotid Pulse: normal on the left, normal on the right Brachial Pulses: normal on the left, normal on the right Radial Pulse: normal on the left, normal on the right Femoral Pulse: normal on the left, normal on the right Posterior Tibialis Pulse: decreased on the left, decreased on the right Dorsalis Pedis Pulse: decreased on the left, decreased on the right Abdomen: Bowel Sounds: normal Inspection & Palpation: soft, non-distended, no tenderness, guarding & rebound Musculoskeletal: normal strength (5/5 throughout), normal tone Extremities: Upper Right: no cyanosis, no edema, no varicosities Upper Left: no cyanosis, no edema, no varicosities Lower Right: no cyanosis, no edema, no varicosities Lower Left: no cyanosis, no edema, no varicosities, good thrill and bruit proximal fistula Neurologic: Cranial Nerves: grossly intact Sensation: grossly intact ASSESSMENT and PLAN: ESRD Post basilic vein fistula creation left arm Plan: Patient admitted for removal of permcath. I have discussed the risks options and benefits of the procedure with the patient. The patient understands the risks options and benefits and agrees to the procedure.
[2016-12-22 10:32] VITALS: BP 169/79; PULSE 72; TEMP 36.7; O2SAT 99; BMI 26.0
[2016-12-22 10:52] VITALS: BP 169/79; TEMP 36.7; O2SAT 99; Ht 175.3 cm; Wt 82.0 kg
--- NOTE | 2016-12-22 11:21 | Procedure Note ---
Pre-Mod Sedation Assessment General Date of Moderate Sedation: Dec 22, 2016. Vital Signs: Vital Signs Past 12 Hours Date Time Temp Pulse Resp B/P (MAP) Pulse Ox O2 Delivery O2 Flow Rate FiO2 12/22/16 10:52 36.7 20 169/79 (109) 99 Room Air 12/22/16 10:32 36.7 72 20 169/79 99 Room Air Pre-Sedation Airway Assessment Oral Cavity: Dentures Smoking Status: Never Smoker Mallampati Classification: Class I ASA Classification: Class III Notes The planned sedation has been discussed with the patient and consent obtained. I have identified the patient, determined the appropriateness of sedation and have assessed the patient immediately prior to the procedure. All medicine(s) and interventions are by my order.
--- NOTE | 2016-12-22 13:46 | [facility] Post Operative Brief Note ---
Immediate Operative Summary Operative Date Dec 22, 2016. Pre-Operative Diagnosis Functioning fistula Post-Operative Diagnosis Same Procedure(s) Performed Removal of permcath Surgeon Marcus Primer Inserting Machine Operator Surgeon(s) Terry Barraza MD Estimated Blood Loss 0 Findings catheter and cuff removed Specimens none Anesthesia Local Complication(s) None Disposition
--- NOTE | 2016-12-22 13:47 | [facility] Operative Report ---
Operative Report Operative Date Dec 22, 2016. Pre-Operative Diagnosis Functioning fistula Post-Operative Diagnosis Same Procedure(s) Performed Removal of permcath Surgeon Marcus Substation Operator Conversion Surgeon(s) Terry Barraza MD Estimated Blood Loss 0 Findings the tip of the catheter and the cuff were intact after the removal of the permcath. Specimens none Anesthesia Local Complication(s) None Disposition Recovery Room / PACU Indications 66 year old male with HTN, admitted with acute on chronic renal failure, and had a permcath inserted for dialysis. He then had permament fistula creation. This was a left upper arm basilic vein fistula and transposition. The fistula is working well. Pt states feeling fine. He is now admitted for a transposition and possible revision due to a stenosis seen on ultrasoundDenies LEWIS, fever, chills, chest pain, SOB, abd pain, N/v, rest pain, claudication, other complaints. Description of Procedure The patient was taken to the angio suite and placed in the supine position. The right side of the neck, chest wall and catheter were prepped and draped in a sterile manner. Local anesthesia was then accomplished. Using sharp and blunt dissection, the cuff of the permcath was freed up from the surrounding fibrous tissue. The permcath and cuff were completely removed. Pressure was then applied and adequate hemostasis was obtained. A sterile dressing was then applied. The patient left the angio suite in good condition and tolerated the procedure well. I attest to the content of the Intraoperative Record and any orders documented therein. Any exceptions are noted below. I, Dr. Velazquez was present and scrubbed for the entire procedure. I attest to the content of the Intraoperative Record and any orders documented therein. Any exceptions are noted below.
--- NOTE | 2016-12-22 13:47 | Discharge Instructions ---
Discharge Instructions Date of Service Dec 22, 2016. Visit Reason for Visit: End Stage Renal Disease, Functioning Fistula Discharge Discharge Diagnosis / Problem: Functioning fistula Discharge Goals Goal(s): Therapeutic intervention Activity Recommendations Activity Limitations: resume your previous activity Anesthesia . Post Anesthesia Instructions: If you have had General Anesthesia or IV Sedation: * Do not drive today. * Resume driving when surgeon permits. * Do not make important decisions or sign legal documents today. * Call surgeon for: 1. Temperature elevations greater than 101 degrees F. 2. Uncontrollable pain. 3. Excessive bleeding. 4. Persistent nausea and vomiting. 5. Medication intolerance (nausea, vomiting or rash). * For nausea and vomiting use only clear liquids such as: tea, soda, bouillon until nausea subsides, then gradually increase diet as tolerated. * If you have any concerns or questions, call your surgeon's office. If physician is unavailable and it is an emergency, call 911 or go to the nearest emergency room. . Instructions / Follow-Up Instructions / Follow-Up Call [phone] with any questions or concerns. SPECIAL CARE INSTRUCTIONS: Medications: * Continue to take your medications as directed. If you have been given a prescription for Plavix, please fill it immediately and take as directed. Incision Care: * Your puncture site may have some bruising and minor swelling for about one week. * You will have a small dressing covering your puncture site. You may remove the dressing after 24 hours and shower. You may let the warm soapy water run over it, but be sure to dry the puncture site well and keep it dry. * DO NOT IMMERSE THE INCISION IN A TUB/POOL/etc. UNTIL HEALED. * Puncture sites should be kept covered with a band-aid until it begins to heal. Restrictions: * Depending on whether you leg or arm was punctured to access the arteries, you will be required to lay flat, hold your arm still, or both, for about 4 hours after the procedure to prevent bleeding. * Limit your activity for the first 48 hours. You may walk and go up and down steps. Avoid excessive bending or movement at the puncture site. Possible Complications: * Excessive Swelling - after blood flow is improved you may notice increased swelling in the lower legs. This is a normal response. This usually depends on the amount of blockages in the leg, how long they have been there prior to your procedure and how much blood flow was restored. Elevating your legs will help to improve this. Please notify our office ([phone] ) if the swelling does not go away after lying in bed overnight. * Infection/Drainage/Bleeding - Drainage or bleeding from the puncture site should be minimal. If you have excessive bleeding or drainage, call our office ([phone]) right away. * Pain - You may experience some mild pain or soreness at your puncture site. If your pain does not improve, please contact our office ([phone]). Call your doctor and seek emergent treatment if you develop: * Temperature above 101 degrees * Any fever or chills * Any redness or purulent drainage from the puncture site * Any new dusky/blue colored toes or feet with coolness or sharp or aching pain. SKIN IRRITATION: * You may experience some redness and/or swelling in the area where radiation was administered. If any skin irritation occurs, please contact your family physician. FOLLOW UP VISIT: Keep any scheduled doctor appointments. Diet Recommendations Recommended Home Diet: resume previous diet Procedures Procedures Performed: Removal of permcath Pending Studies Studies pending at discharge: no Medical Emergencies . Who to Call and When: Medical Emergencies: If at any time you feel your situation is an emergency, please call 911 immediately. . Non-Emergent Contact Non-Emergency issues call your: Surgeon . . "Provider Documentation" section prepared by Deng Velazquez. .
[2016-12-22 13:58] VITALS: BP 164/67; PULSE 76; TEMP 36.9; O2SAT 98
[2016-12-22 14:30] VITALS: BP 155/71; PULSE 74; TEMP 37; O2SAT 98
== END | disposition home or self-care (01) ==
LOC: C.ACU 09:28
PROVIDERS: ATTEND Surgery Vascular Surgery
DX: Z45.2 Encounter for adjustment and management of vascular access device (principal); N18.6 End stage renal disease; I10 Essential (primary) hypertension; N17.9 Acute kidney failure, unspecified; Z79.82 Long term (current) use of aspirin; Z82.49 Family history of ischemic heart disease and other diseases of the circulatory system; E11.9 Type 2 diabetes mellitus without complications; Z79.4 Long term (current) use of insulin

== ENCOUNTER → 2017-02-11 | Day surgery (SDC) | payer OTHER ==
[2017-01-18 08:00] VITALS: Ht 175.3 cm; Wt 81.8 kg
[~2017-02-11] VITALS: Ht 175.3 cm; Wt 81.8 kg
[~2017-02-11] MED LIST changes: -CEFAZOLIN 1000MG/55 ML D5W IV SCH; -D5W AND 1/4NSS 1000 ML IV SCH; -DXM4 PO; -FENTANYL CITRATE INJ 50 MCG/1 ML 2 ML VIAL ONE; -HYDR-5688 PO; -INSDGIPEN SC; -LIDOCAINE HCL 1% 20 ML VIAL INJ ONE; +LIDOCAINE HCL 2% 2 ML VIAL (20MG/ML) ONE; -NVLGIPEN SC; +PROPOFOL IV EMULSION 10 MG/ML 20 ML VIAL IV ONE; +SODIUM CHLORIDE 0.9% 500ML 500 ML IV ONE
--- NOTE | 2017-02-11 13:18 | Endo History and Physical ---
History & Physical Date of Service: Feb 11, 2017. Chief Complaint: 1 year followup atypical cells at stoma Referring Physician: Dr. Smith History of Present Illness colon screening; s/p colon resection for beniogn tumor, remote hx of perforated colon Past Surgical History Hx Cardiac Surgery: No Hx Internal Defibrillator: No Hx Pacemaker: No Hx Abdominal Surgery: Yes (COLON RESECTION WITH COLOSTOMY, MASS REMOVAL FROM STOMA AND HERNIA REPAIR) Hx of Implantable Prosthesis: No Hx Post-Op Nausea and Vomiting: No Hx Cancer Surgery: Yes (BCC REMOVALS) Hx Thoracic Surgery: No Hx Orthopedic: No Hx Urinary Tract Surgery: No Family History None Social History Smoking Status: Never Smoker Hx Substance Use: No Hx Alcohol Use: No Allergies Coded Allergies: No Known Allergies (Verified , 01/18/17) Current Medications Reported Home Medications Medications Dose Route/Sig Max Daily Dose Days Date Category Dose Instructions Lantus (Insulin Glargine) 100 Unit/Ml Inj 60 Units SC QAM 01/18/17 Reported Phoslo 667 Mg (Calcium Acetate) 667 Mg Cap 2 Capsules PO AC 01/18/17 Reported Imdur Ext Rel (Isosorbide Mononitrate) 30 Mg Ertab 30 Mg PO QAM 10/28/16 Reported Nifedipine Er (Nifedipine) 90 Mg Tab 90 Mg PO QAM 10/28/16 Reported Toprol Xl (Metoprolol Succinate) 200 Mg Tab 200 Mg PO QAM 10/28/16 Reported Vitamin D 30924 Unit (Ergocalciferol) 50,000 Unit Cap 50,000 Inter.unit PO MONTHLY 07/20/16 Reported TAKE THIS MEDICATION THE FIRST OF EVERY MONTH Rapaflo (Silodosin) 8 Mg Cap 8 Mg PO HS 07/20/16 Reported Multivitamin (Multivitamins) Tab 1 Tab PO QPM 07/20/16 Reported Meclizine Hcl 25 Mg Tab 25 Mg PO UD PRN 07/20/16 Reported Avodart (Dutasteride) 0.5 Mg Cap 0.5 Mg PO HS 07/20/16 Reported Aspirin Ec (Aspirin) 81 Mg Tab 81 Mg PO HS 07/20/16 Reported Vital Signs Weight (Kilograms): 81.82 Height (Feet): 5 Height (Inches): 9 Date Time Temp Pulse Resp B/P (MAP) Pulse Ox O2 Delivery O2 Flow Rate FiO2 02/11/17 12:32 36.7 67 20 142/64 (90) 97 Room Air Physical Exam General Appearance: WD/WN, no apparent distress Respiratory/Chest: Auscultation: breath sounds normal Cardiovascular: Heart Auscultation: RRR Abdomen: Bowel Sounds: normal Inspection & Palpation: soft, non-distended, no tenderness, guarding & rebound Assessment and Plan Plan colonoscopy via colostomy and via rectum for screening consent obrtained daron
--- NOTE | 2017-02-11 14:01 | Discharge Instructions ---
Endoscopy Patient Instructions Date / Procedure(s) Performed Feb 11, 2017. Colonoscopy, Flex Sig Allergy Information Coded Allergies: No Known Allergies (Verified , 01/18/17) Discharge Date / Findings Feb 11, 2017. 1) limited FS due to inspisaated mucus 2) colon polyps- all removed Medication Instructions Stopped Medication(s): took baby ASA yesterday Restart Stopped Medication(s): Reported Home Medications Medications Dose Route/Sig Max Daily Dose Days Date Category Dose Instructions Lantus (Insulin Glargine) 100 Unit/Ml Inj 60 Units SC QAM 01/18/17 Reported Phoslo 667 Mg (Calcium Acetate) 667 Mg Cap 2 Capsules PO AC 01/18/17 Reported Imdur Ext Rel (Isosorbide Mononitrate) 30 Mg Ertab 30 Mg PO QAM 10/28/16 Reported Nifedipine Er (Nifedipine) 90 Mg Tab 90 Mg PO QAM 10/28/16 Reported Toprol Xl (Metoprolol Succinate) 200 Mg Tab 200 Mg PO QAM 10/28/16 Reported Vitamin D 19443 Unit (Ergocalciferol) 50,000 Unit Cap 50,000 Inter.unit PO MONTHLY 07/20/16 Reported TAKE THIS MEDICATION THE FIRST OF EVERY MONTH Rapaflo (Silodosin) 8 Mg Cap 8 Mg PO HS 07/20/16 Reported Multivitamin (Multivitamins) Tab 1 Tab PO QPM 07/20/16 Reported Meclizine Hcl 25 Mg Tab 25 Mg PO UD PRN 07/20/16 Reported Avodart (Dutasteride) 0.5 Mg Cap 0.5 Mg PO HS 07/20/16 Reported Aspirin Ec (Aspirin) 81 Mg Tab 81 Mg PO HS 07/20/16 Reported Reported Home Medications Medications Dose Route/Sig Max Daily Dose Days Date Category Dose Instructions Lantus (Insulin Glargine) 100 Unit/Ml Inj 60 Units SC QAM 01/18/17 Reported Phoslo 667 Mg (Calcium Acetate) 667 Mg Cap 2 Capsules PO AC 01/18/17 Reported Imdur Ext Rel (Isosorbide Mononitrate) 30 Mg Ertab 30 Mg PO QAM 10/28/16 Reported Nifedipine Er (Nifedipine) 90 Mg Tab 90 Mg PO QAM 10/28/16 Reported Toprol Xl (Metoprolol Succinate) 200 Mg Tab 200 Mg PO QAM 10/28/16 Reported Vitamin D 51966 Unit (Ergocalciferol) 50,000 Unit Cap 50,000 Inter.unit PO MONTHLY 07/20/16 Reported TAKE THIS MEDICATION THE FIRST OF EVERY MONTH Rapaflo (Silodosin) 8 Mg Cap 8 Mg PO HS 07/20/16 Reported Multivitamin (Multivitamins) Tab 1 Tab PO QPM 07/20/16 Reported Meclizine Hcl 25 Mg Tab 25 Mg PO UD PRN 07/20/16 Reported Avodart (Dutasteride) 0.5 Mg Cap 0.5 Mg PO HS 07/20/16 Reported Aspirin Ec (Aspirin) 81 Mg Tab 81 Mg PO HS 07/20/16 Reported Provider Instructions Activity Restrictions - No exercising or heavy lifting for 24 hours. - Do not drink alcohol the day of the procedure. - Do not drive a car or operate machinery until the day after the procedure. - Do not make any important decisions or sign important papers in 24 hours after the procedure. Following Day: - Return to full activity which may include returning to work/school. Diet Start your diet with liquids and light foods (jello, soup, juice, toast). Then eat your usual diet if not nauseated. Treatment For Common After Affects For mild abdominal pain, bloating, or excessive gas: - Rest - Eat lightly - Lie on right side Follow-Up Information Follow-up with Dr. Smith as scheduled Anesthesia Information What You Should Know You have had a procedure that required some medicine to reduce anxiety and discomfort. This treatment is called moderate sedation. After receiving the treatment, you may be sleepy, but you will be able to breathe on your own. The effects of the treatment may last for several hours. Follow these instructions along with Activity/Diet recommendations noted above: * Do NOT do anything where dizziness or clumsiness would be dangerous. * Rest quietly at home today, then you can be up and about tomorrow. * Have a responsible person stay with you the rest of today. * You may have had an I.V. today. If so, you may take the dressing off later today. Recommendations Call your doctor if: * Trouble breathing * Continuous vomiting for more than 24 hours * Temperature above 101 degrees * Severe abdominal pain or bloating * Pain not relieved by pain medicine ordered * There is increased drainage or redness from any incision * A large amount of rectal bleeding greater than 2-3 tablespoons. (If you had a polyp/s removed or have hemorrhoids, a small amount of blood - from the rectum is to be expected.) * You have any unanswered questions or concerns. IN THE EVENT OF A SERIOUS EMERGENCY, GO TO THE NEAREST EMERGENCY ROOM Your discharge instructions were prepared by provider Luis Carlos Knutson. Patient Instructions Signature Page Naveen Bravo Patient (or Guardian) Signature/Date: I have read and understand the instructions given to me by my caregivers. Caregiver/RN/Doctor Signature/Date: The above-named patient and/or guardian has received patient instructions on this date. + Original Patient Signature Page (only) stays with chart. Please make copy for patient.
--- NOTE | 2017-02-11 14:10 | GI REPORT ---
Procedure Date: 02/11/2017 1:27 PM Procedure: Colonoscopy Indications: Screening for colorectal malignant neoplasm Medicines: Propofol per Anesthesia Complications: No immediate complications. Estimated blood loss: Minimal. Estimated Blood Loss: Estimated blood loss was minimal. Procedure: Pre-Anesthesia Assessment: - Prior to the procedure, a History and Physical was performed, and patient medications and allergies were reviewed. The patient's tolerance of previous anesthesia was also reviewed. The risks and benefits of the procedure and the sedation options and risks were discussed with the patient. All questions were answered, and informed consent was obtained. Prior Anticoagulants: The patient has taken no previous anticoagulant or antiplatelet agents. ASA Grade Assessment: III - A patient with severe systemic disease. After reviewing the risks and benefits, the patient was deemed in satisfactory condition to undergo the procedure. After I obtained informed consent, the scope was passed under direct vision. Throughout the procedure, the patient's blood pressure, pulse, and oxygen saturations were monitored continuously. The scope was introduced through the descending colostomy and advanced to the surgical stoma. The colonoscopy was performed without difficulty. The patient tolerated the procedure well. The quality of the bowel preparation was good. Findings: Three sessile polyps were found in the proximal ascending colon. The polyps were 2 to 4 mm in size. These polyps were removed with a cold snare. Resection and retrieval were complete. Estimated blood loss was minimal. Verification of patient identification for the specimen was done by the physician and thermal technician using the patient's name and medical record number. A 4 mm polyp was found at 50 cm proximal to the stoma. The polyp was sessile. The polyp was removed with a cold snare. Resection and retrieval were complete. Estimated blood loss was minimal. Verification of patient identification for the specimen was done by the physician and thermal technician using the patient's name and medical record number. A 3 mm polyp was found at 40 cm proximal to the stoma. The polyp was sessile. The polyp was removed with a cold biopsy forceps. Resection and retrieval were complete. Estimated blood loss was minimal. Verification of patient identification for the specimen was done by the physician and thermal technician using the patient's name and medical record number. The exam was otherwise without abnormality. The terminal ileum appeared normal. Impression: - Three 2 to 4 mm polyps in the proximal ascending colon, removed with a cold snare. Resected and retrieved. - One 4 mm polyp at 50 cm proximal to the stoma, removed with a cold snare. Resected and retrieved. - One 3 mm polyp at 40 cm proximal to the stoma, removed with a cold biopsy forceps. Resected and retrieved. - The examination was otherwise normal. - The examined portion of the ileum was normal. Recommendation: - Discharge patient to home (ambulatory). - Resume previous diet. - Continue present medications. - Patient has a contact number available for emergencies. The signs and symptoms of potential delayed complications were discussed with the patient. Return to normal activities tomorrow. Written discharge instructions were provided to the patient. - Await pathology results. - Repeat colonoscopy for surveillance based on pathology results. - Return to referring physician as previously scheduled. MD Luis Carlos Haley MD 02/11/2017 2:09:47 PM This report has been signed electronically. Note Initiated On: 02/11/2017 1:27 PM I attest to the content of the Intraoperative Record and orders documented therein, exceptions below
--- NOTE | 2017-02-11 14:12 | Anesthesiology Progress Note ---
Anesthesia Post Op Note Date & Time Feb 11, 2017 at 14:12 Vital Signs Pain Intensity: 0 Vital Signs Past 12 Hours Date Time Temp Pulse Resp B/P (MAP) Pulse Ox O2 Delivery O2 Flow Rate FiO2 02/11/17 13:56 62 12 130/63 (85) 100 Room Air 02/11/17 12:32 36.7 67 20 142/64 (90) 97 Room Air Notes Mental Status: alert / awake / arousable, participated in evaluation Pt Amnestic to Procedure: Yes Nausea / Vomiting: adequately controlled Pain: adequately controlled Airway Patency, RR, SpO2: stable & adequate BP & HR: stable & adequate Hydration State: stable & adequate Anesthetic Complications: no major complications apparent
--- NOTE | 2017-02-11 14:23 | GI REPORT ---
Procedure Date: 02/11/2017 1:41 PM Procedure: Flexible Sigmoidoscopy Indications: High risk colon cancer surveillance: Personal history of colonic polyps Medicines: Propofol per Anesthesia Complications: No immediate complications. Estimated Blood Loss: Estimated blood loss: none. Procedure: Pre-Anesthesia Assessment: - Prior to the procedure, a History and Physical was performed, and patient medications and allergies were reviewed. The patient's tolerance of previous anesthesia was also reviewed. The risks and benefits of the procedure and the sedation options and risks were discussed with the patient. All questions were answered, and informed consent was obtained. Prior Anticoagulants: The patient has taken no previous anticoagulant or antiplatelet agents. ASA Grade Assessment: III - A patient with severe systemic disease. After reviewing the risks and benefits, the patient was deemed in satisfactory condition to undergo the procedure. After obtaining informed consent, the endoscope was passed under direct vision. Throughout the procedure, the patient's blood pressure, pulse, and oxygen saturations were monitored continuously. The scope was introduced through the anus and advanced to 10 cm from the anal verge. The flexible sigmoidoscopy was accomplished without difficulty. The patient tolerated the procedure well. The quality of the bowel preparation was 90 percent obscured. Findings: The perianal and digital rectal examinations were normal. Pertinent negatives include normal sphincter tone, no palpable rectal lesions and no anal lesion or abnormality was detected. Copious quantities of solid stool was found at 15 cm proximal to the anus, precluding visualization. Impression: - Stool at 15 cm proximal to the anus. - No specimens collected. Recommendation: - Discharge patient to home (ambulatory). - Resume previous diet. - Return to referring physician as previously scheduled. - - Perform a flexible sigmoidoscopy after fleets enema preps to remove inspissated mucus. MD Luis Carlos Haley MD 02/11/2017 2:22:44 PM This report has been signed electronically. Note Initiated On: 02/11/2017 1:41 PM I attest to the content of the Intraoperative Record and orders documented therein, exceptions below
[2017-02-11 14:26] VITALS: BP 140/66; PULSE 65; O2SAT 97
== END | disposition home or self-care (01) ==
LOC: C.GI 11:59
PROVIDERS: ATTEND Internal Medicine Gastroenterology
DX: Z12.11 Encounter for screening for malignant neoplasm of colon (principal); D12.2 Benign neoplasm of ascending colon; D12.6 Benign neoplasm of colon, unspecified; Z93.3 Colostomy status; E11.9 Type 2 diabetes mellitus without complications; I12.9 Hypertensive chronic kidney disease with stage 1 through stage 4 chronic kidney disease, or unspecified chronic kidney disease; Z86.010 Personal history of colon polyps; N18.9 Chronic kidney disease, unspecified; Z99.2 Dependence on renal dialysis; Z79.4 Long term (current) use of insulin; Z79.82 Long term (current) use of aspirin; Z68.27 Body mass index [BMI] 27.0-27.9, adult; Z98.890 Other specified postprocedural states; Z90.89 Acquired absence of other organs; Z85.828 Personal history of other malignant neoplasm of skin

== ENCOUNTER → 2017-03-30 | Outpatient (CLI) | payer OTHER ==
[~2017-03-30] MED LIST changes: -LIDOCAINE HCL 2% 2 ML VIAL (20MG/ML) ONE; +METO-648 PO; -METO1TAB70 PO; -MIDAZOLAM HCL 1 MG/ML 2ML VIAL ONE; +OPTIRAY 320 IV PRN; -PROPOFOL IV EMULSION 10 MG/ML 20 ML VIAL IV ONE; -SODIUM CHLORIDE 0.9% 500ML 500 ML IV ONE
--- NOTE | 2017-03-30 12:46 | DIAGNOSTIC IMAGING REPORT ---
ABDOMINAL CT WITH AND WITHOUT INTRAVENOUS CONTRAST, PANCREATIC PROTOCOL HISTORY: Evaluate pancreatic cystic mass. TECHNIQUE: Multiaxial CT images of the abdomen were performed both before and after the intravenous administration of contrast to evaluate the pancreas. Oral contrast was also administered. COMPARISON STUDY: Chest CT 03/04/2017. Abdominal ultrasound 03/04/2017. FINDINGS: There are of the 6 round hypodense lesions seen within the body and tail of the pancreas. These do not demonstrate enhancement and are consistent with cystic neoplasms. 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 Dominant lesion at the body the pancreas measures 2.6 cm. Mild to moderate intrahepatic bile duct dilatation is again noted. No hepatic masses. A 1.3 cm hypodense lesion within the inferior tip of the spleen. Normal adrenal glands. Cholecystectomy. The main pancreatic duct appears be normal in caliber. Mild dilatation of the common bile duct measuring up to 8 mm. No retroperitoneal lymphadenopathy. There is a left lower quadrant colostomy. The visualized loops of bowel show no wall thickening or obstruction. Small fat-containing midline ventral hernias. Subcentimeter hypodense lesions within the left kidney are too small to characterize but statistically represent cysts. An 11.6 cm cyst within the lower pole of the right kidney. A 3.8 cm cyst within the right renal pelvis. IMPRESSION: 1. Multiple cystic lesions seen within the body and tail of the pancreas with the dominant lesion measuring 2.6 cm. 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 However, GI consultation for endoscopic ultrasound is recommended for biopsy of the largest lesion to exclude a mucinous cystic tumor. 2. Mild to moderate intrahepatic bile duct dilatation. 3. Cholecystectomy. Electronically signed by: Kory Jett M.D. 03/30/2017 12:44 PM Dictated Date/Time: 03/30/2017 12:31 PM
== END | disposition home or self-care (01) ==
LOC: C.CTS 11:17
PROVIDERS: ATTEND Internal Medicine Gastroenterology
DX: R79.89 Other specified abnormal findings of blood chemistry (principal); K86.9 Disease of pancreas, unspecified; K83.8 Other specified diseases of biliary tract; Z90.49 Acquired absence of other specified parts of digestive tract

== ENCOUNTER 2017-04-16 12:18 | Day surgery (SDC) | payer OTHER ==
[~2017-04-16] VITALS: Ht 175.3 cm; Wt 82.0 kg
[~2017-04-16 12:18] MED LIST changes: +CEFAZOLIN 1000MG IV PUSH 5 ML IV SCH; +D5W AND 1/4NSS 1000 ML IV SCH; -METO-648 PO; +METO200T31 PO; -OPTIRAY 320 IV PRN
[2017-04-16 12:44] VITALS: Ht 175.3 cm; Wt 82.0 kg
[2017-04-16 12:45] VITALS: BP 173/76; PULSE 64; TEMP 36.5; O2SAT 97
[2017-04-16] MEDS ORDERED: CEFAZOLIN 2000MG IV PUSH 10 ML IV SCH (12:45)
[2017-04-16 14:24] LABS: POTASSIUM 3.7 mmol/L (3.5-5.1)
[2017-04-16 15:15] VITALS: BP 173/76; TEMP 36.5; O2SAT 97
--- NOTE | 2017-04-16 16:25 | History and Physical ---
History & Physical Date of Service Apr 16, 2017. History & Physical History & Physical ESRD, post basilic vein fistula creation, malfunctioning fistula History of Present Illness The patient is a 66 year old male with HTN, admitted with acute on chronic renal failure, and had a permcath inserted for dialysis. He then had permament fistula creation. This was a left upper arm basilic vein fistula and transposition. The fistula is not working well. Pt states feeling fine. He is now admitted for a fistulogram with possible intervention Denies LEWIS, fever, chills, chest pain, SOB, abd pain, N/v, rest pain, claudication, other complaints. Allergies Coded Allergies: No Known Allergies (Verified , 07/20/16) Home Medications Scheduled Acetaminophen (Tylenol), 1 TAB PO PRN Aspirin (Aspirin Ec), 81 MG PO HS Atorvastatin (Lipitor), 20 MG PO HS Dutasteride (Avodart), 0.5 MG PO HS Ergocalciferol (Vitamin D 42455 Unit), 50,000 UNIT PO MONTH Hctz/Losartan (Hyzaar 25MG/100MG), 1 TAB PO QAM Insulin Glargine (Lantus Solostar), 68 SC BID Interferon Beta-1A (Rebif), 0.5 ML INJ 3XWEEK Isosorbide Mononitrate Ext Rel (Imdur Ext Rel), 30 MG PO QAM Meclizine Hcl (Meclizine Hcl), 1 TAB PO PRN Metoprolol Succ (Toprol Xl) (Toprol-Xl ), 200 MG PO QAM Multivitamin (Multivitamin), 1 TAB PO QPM Nifedipine Ext Rel (Procardia Xl Ext Rel), 90 MG PO QAM Silodosin (Rapaflo), 1 CAP PO HS Problem List Medical Problems: (1) Abnormal LFTs (liver function tests) (2) BPH (benign prostatic hyperplasia) (3) Diabetes (4) Hypertension (5) Multiple sclerosis (6) Proteinuria (7) Renal failure (ARF), acute on chronic Surgical / Medical History Hx Cardiac Surgery: No Hx Abdominal Surgery: Yes (colostomy, colostomy repair, hernia, appendectomy) Hx Cancer Surgery: No Hx Thoracic Surgery: No Hx Orthopedic: No Hx Urinary Tract Surgery: No HX Other Surgery: No Past Medical/Surgical History: Hypertension Family History + HTN Social History Smoking Status: Never Smoker Hx Tobacco Use In Past Year?: No Hx Alcohol Use - Type & Amnt: Yes (rare-single beer) Hx Substance Use -Type & Amnt: No Review of Systems Constitutional: No chills, No fever, No malaise Skin: No change in color Eyes: No visual changes ENMT: No sore throat Respiratory: No PHELPS, No cough, No hemoptysis, No short of breath Cardiovascular: No chest pain, No chest pressure, No edema, No intermittent claudication, No syncope Gastrointestinal: No abdominal pain, No nausea Neurologic: No dizziness, No headache, No lethargy, No numbness, No tingling Physical Exam Constitutional: General Apperance: heathly-appearing, well-nourished, well-developed Level of Distress: NAD Psychiatric: Mental Status: active & alert, normal mood, normal affect Orientation: oriented except where noted, to time, to place, to person Memory: recent memory normal, remote memory normal Head: normocephalic, atraumatic Eyes: EOM: EOMI ENMT: normal ENT inspection, hearing grossly normal Neck: supple, trachea midline Lungs: Respiratory effort: no dyspnea Auscultation: no wheezing, no rales/crackles, no rhonchi, decreased breath sounds Cardiovascular: Apical Impulse: not displaced Heart Auscultation: RRR, no rubs, no gallops Peripheral Pulses: Pulses: full and equal, in all extremities except if noted Bruits: none appreciated Carotid Pulse: normal on the left, normal on the right Brachial Pulses: normal on the left, normal on the right Radial Pulse: normal on the left, normal on the right Femoral Pulse: normal on the left, normal on the right Posterior Tibialis Pulse: decreased on the left, decreased on the right Dorsalis Pedis Pulse: decreased on the left, decreased on the right Abdomen: Bowel Sounds: normal Inspection & Palpation: soft, non-distended, no tenderness, guarding & rebound Musculoskeletal: normal strength (5/5 throughout), normal tone Extremities: Upper Right: no cyanosis, no edema, no varicosities Upper Left: no cyanosis, no edema, no varicosities Lower Right: no cyanosis, no edema, no varicosities Lower Left: no cyanosis, no edema, no varicosities, good thrill and bruit proximal fistula Neurologic: Cranial Nerves: grossly intact Sensation: grossly intact ASSESSMENT and PLAN: ESRD Post basilic vein fistula creation left arm with malfunctioning fistula Plan: Patient admitted for a fistulogram with possible intervention. I have discussed the risks options and benefits of the procedure with the patient. The patient understands the risks options and benefits and agrees to the procedure.
--- NOTE | 2017-04-16 16:26 | Procedure Note ---
Pre-Mod Sedation Assessment General Date of Moderate Sedation: Apr 16, 2017. Vital Signs: Vital Signs Past 12 Hours Date Time Temp Pulse Resp B/P (MAP) Pulse Ox O2 Delivery O2 Flow Rate FiO2 04/16/17 15:15 36.5 18 173/76 97 Room Air 04/16/17 12:45 36.5 64 18 173/76 (108) 97 Room Air Pre-Sedation Airway Assessment Oral Cavity: Dentures Short Thick Neck: No Hx of Sleep Apnea: No Smoking Status: Never Smoker Mallampati Classification: Class I ASA Classification: Class III Notes The planned sedation has been discussed with the patient and consent obtained. I have identified the patient, determined the appropriateness of sedation and have assessed the patient immediately prior to the procedure. All medicine(s) and interventions are by my order.
[2017-04-16] MEDS ORDERED: MIDAZOLAM HCL 1 MG/ML 2ML VIAL ONE (17:09)
[2017-04-16] MEDS ORDERED: FENTANYL CITRATE INJ 50 MCG/1 ML 2 ML VIAL ONE (17:09)
[2017-04-16] MEDS ORDERED: MIDAZOLAM HCL 1 MG/ML 2ML VIAL IV ONE (17:37)
[2017-04-16] MEDS ORDERED: FENTANYL CITRATE INJ 50 MCG/1 ML 2 ML VIAL IV ONE (17:37)
[2017-04-16] MEDS ORDERED: LIDOCAINE HCL 1% 20 ML VIAL INJ ONE (17:37)
[2017-04-16] MEDS ORDERED: OPTIRAY 300 IV ONE (17:40)
--- NOTE | 2017-04-16 17:45 | Discharge Instructions ---
Discharge Instructions Date of Service Apr 16, 2017. Visit Reason for Visit: End Stage Renal Disease -On Hemodialysis Discharge Discharge Diagnosis / Problem: Malfunctioning fistula Discharge Goals Goal(s): Diagnostic testing Activity Recommendations Activity Limitations: per Instructions/Follow-up section Anesthesia . Post Anesthesia Instructions: If you have had General Anesthesia or IV Sedation: * Do not drive today. * Resume driving when surgeon permits. * Do not make important decisions or sign legal documents today. * Call surgeon for: 1. Temperature elevations greater than 101 degrees F. 2. Uncontrollable pain. 3. Excessive bleeding. 4. Persistent nausea and vomiting. 5. Medication intolerance (nausea, vomiting or rash). * For nausea and vomiting use only clear liquids such as: tea, soda, bouillon until nausea subsides, then gradually increase diet as tolerated. * If you have any concerns or questions, call your surgeon's office. If physician is unavailable and it is an emergency, call 911 or go to the nearest emergency room. . Instructions / Follow-Up Instructions / Follow-Up Call [phone] with any questions or concerns. SPECIAL CARE INSTRUCTIONS: Medications: * Continue to take your medications as directed. If you have been given a prescription for Plavix, please fill it immediately and take as directed. Incision Care: * Your puncture site may have some bruising and minor swelling for about one week. * You will have a small dressing covering your puncture site. You may remove the dressing after 24 hours and shower. You may let the warm soapy water run over it, but be sure to dry the puncture site well and keep it dry. * DO NOT IMMERSE THE INCISION IN A TUB/POOL/etc. UNTIL HEALED. * Puncture sites should be kept covered with a band-aid until it begins to heal. Restrictions: * Depending on whether you leg or arm was punctured to access the arteries, you will be required to lay flat, hold your arm still, or both, for about 4 hours after the procedure to prevent bleeding. * Limit your activity for the first 48 hours. You may walk and go up and down steps. Avoid excessive bending or movement at the puncture site. Possible Complications: * Excessive Swelling - after blood flow is improved you may notice increased swelling in the lower legs. This is a normal response. This usually depends on the amount of blockages in the leg, how long they have been there prior to your procedure and how much blood flow was restored. Elevating your legs will help to improve this. Please notify our office ([phone] ) if the swelling does not go away after lying in bed overnight. * Infection/Drainage/Bleeding - Drainage or bleeding from the puncture site should be minimal. If you have excessive bleeding or drainage, call our office ([phone]) right away. * Pain - You may experience some mild pain or soreness at your puncture site. If your pain does not improve, please contact our office ([phone]). Call your doctor and seek emergent treatment if you develop: * Temperature above 101 degrees * Any fever or chills * Any redness or purulent drainage from the puncture site * Any new dusky/blue colored toes or feet with coolness or sharp or aching pain. SKIN IRRITATION: * You may experience some redness and/or swelling in the area where radiation was administered. If any skin irritation occurs, please contact your family physician. FOLLOW UP VISIT: Keep any scheduled doctor appointments. Diet Recommendations Recommended Home Diet: resume previous diet Procedures Procedures Performed: Fistulogram, Conscious sedation Pending Studies Studies pending at discharge: no Medical Emergencies . Who to Call and When: Medical Emergencies: If at any time you feel your situation is an emergency, please call 911 immediately. . Non-Emergent Contact Non-Emergency issues call your: Surgeon . . "Provider Documentation" section prepared by Deng Velazquez. .
--- NOTE | 2017-04-16 17:46 | [facility] Post Operative Brief Note ---
Immediate Operative Summary Operative Date Apr 16, 2017. Pre-Operative Diagnosis Malfunctioning fistula Post-Operative Diagnosis Same Procedure(s) Performed Fistulogram, Conscious sedation ([id number]) Surgeon Marcus Crossword Puzzle Maker Surgeon(s) Sonia Arroyo MD Estimated Blood Loss 0 Findings Normal fistula Specimens none Anesthesia Local with sedation Complication(s) None Disposition
--- NOTE | 2017-04-16 17:47 | Procedure Note ---
Post-Moderate Sedation Plan General Date of Moderate Sedation Apr 16, 2017. Vital Signs: Vital Signs Past 12 Hours Date Time Temp Pulse Resp B/P (MAP) Pulse Ox O2 Delivery O2 Flow Rate FiO2 04/16/17 15:15 36.5 18 173/76 97 Room Air 04/16/17 12:45 36.5 64 18 173/76 (108) 97 Room Air Review - Discharge Plan Post Moderate Sedation Plan: On clinical assessment, the patient appears to have tolerated the conscious sedation without complications. Patient is recovering as anticipated. Patient will continue to be monitored by nursing and may be discharged when conscious sedation discharge criteria are met.
[2017-04-16 17:55] VITALS: BP 186/82; PULSE 73; TEMP 37.2; O2SAT 95
[2017-04-16 18:22] VITALS: BP 152/68; PULSE 69; TEMP 36.9; O2SAT 94
--- NOTE | 2017-05-14 12:45 | [facility] Operative Report ---
Operative Report Operative Date May 14, 2017. Pre-Operative Diagnosis Malfunctioning fistula Post-Operative Diagnosis Same Procedure(s) Performed Fistulogram, Conscious sedation ([id number]) Surgeon Marcus Cafe Lead Surgeon(s) Sonia Arroyo MD Estimated Blood Loss 0 Findings no stenosis Specimens none Anesthesia Local with sedation Complication(s) None Disposition Indications This is a 67-year-old gentleman with a malfunctioning the fistula. Fistulogram with possible intervention was recommended. I have discussed the risks options and benefits of the procedure with the patient. The patient understands the risks options and benefits and agrees to the procedure. Description of Procedure The patient was taken to the angiogram suite and placed in the supine position. The left arm was then prepped and draped in a sterile manner. Local anesthetic was administered and a percutaneous puncture was then made of the proximal portion of the left arm AV fistula using micropuncture technique. Micropuncture wire and sheath were then inserted. A fistulogram was then performed. Fistulogram showed no evidence of stenosis throughout the entire fistula both the peripheral and central outflow. There are no lesions to treat at this point. The sheath was then pulled and pressure was applied. Adequate hemostasis was obtained. The patient left the angiogram suite in good condition and tolerated the procedure well. I, Dr. Velazquez was present and scrubbed for the entire procedure. I attest to the content of the Intraoperative Record and any orders documented therein. Any exceptions are noted below.
== END 2017-04-16 18:39 | disposition home or self-care (01) ==
LOC: C.ACU 12:18
PROVIDERS: ATTEND Surgery Vascular Surgery
DX: N18.6 End stage renal disease (principal); I12.0 Hypertensive chronic kidney disease with stage 5 chronic kidney disease or end stage renal disease; E11.9 Type 2 diabetes mellitus without complications; N40.0 Benign prostatic hyperplasia without lower urinary tract symptoms; G35 Multiple sclerosis; N17.9 Acute kidney failure, unspecified; Z93.3 Colostomy status; Z90.89 Acquired absence of other organs; Z98.890 Other specified postprocedural states; Z82.49 Family history of ischemic heart disease and other diseases of the circulatory system

== ENCOUNTER → 2017-05-26 | Day surgery (SDC) | payer OTHER ==
[2017-05-14 15:34] VITALS: BMI 26.0
[~2017-05-26] VITALS: Ht 175.3 cm; Wt 81.5 kg
[~2017-05-26] MED LIST changes: +ATROPINE SULFATE 0.1 MG/ML 5ML SYR IV PRN; -CEFAZOLIN 1000MG IV PUSH 5 ML IV SCH; +CIPROFLOXACIN 400MG / 200ML D5W IV ONE; +CIPROFLOXACIN 400MG / 200ML D5W ONE; -D5W AND 1/4NSS 1000 ML IV SCH; +DEXAMETHASONE SOD INJ 4 MG/ML VIAL ONE; -ERGO500037 PO; +EpHEDrine SULFATE INJ 50 MG/ML AMP IV PRN; +FENTANYL CITRATE INJ 50 MCG/1 ML 2 ML VIAL IV PRN; +FENTANYL CITRATE INJ 50 MCG/1 ML 2 ML VIAL ONE; +HYDROmorphone INJ 1 MG/ML SYR IV PRN; +LACTATED RINGER'S 1000ML 1,000 ML IV SCH; +MIDAZOLAM HCL 1 MG/ML 2ML VIAL ONE; +ONDANSETRON INJ 2 MG/ML 2 ML VIAL IV PRN; +ONDANSETRON INJ 2 MG/ML 2 ML VIAL ONE; +PROPOFOL IV EMULSION 10 MG/ML 20 ML VIAL IV ONE; +SODIUM CHLORIDE 0.9% 1000ML 1,000 ML IV SCH; +SODIUM CHLORIDE 0.9% 500ML 500 ML IV ONE; +SUCCINYLCHOLINE CHLORIDE 20 MG/ML 10 ML VIAL IV ONE
[2017-05-26 06:23] LABS: HEMATOCRIT 41.4 % (42-52); HEMOGLOBIN 14.9 g/dL (14.0-18.0); MEAN CELL VOLUME 93.7 fL (80-100); MEAN CORPUSCULAR HEMOGLOBIN 33.7 pg (25-34); MEAN PLATELET VOLUME 10.6 fL (7.4-10.4); PLATELET COUNT 169 K/uL (130-400); RED CELL DISTRIBUTION WIDTH CV 14.5 % (11.5-14.5); RED CELL DISTRIBUTION WIDTH SD 49.4 fL (36.4-46.3); WHITE BLOOD COUNT 7.82 K/uL (4.8-10.8)
[2017-05-26 06:26] VITALS: BP 137/67; PULSE 63; TEMP 36.6; O2SAT 98; Ht 175.3 cm; Wt 81.5 kg
[2017-05-26 06:58] LABS: CALCIUM 9.8 mg/dl (8.5-10.1); CREATININE 4.87 mg/dl (0.60-1.40); POTASSIUM 3.5 mmol/L (3.5-5.1)
--- NOTE | 2017-05-26 07:48 | Endo History and Physical ---
History & Physical Date of Service: May 26, 2017. Chief Complaint: pancreatic cyst Referring Physician: History of Present Illness pancreatic cyst Past Surgical History Hx Cardiac Surgery: No Hx Internal Defibrillator: No Hx Pacemaker: No Hx Abdominal Surgery: Yes (COLON RESECTION WITH COLOSTOMY, MASS REMOVAL FROM STOMA AND HERNIA REPAIR) Hx Post-Op Nausea and Vomiting: No Hx Cancer Surgery: Yes (BACK AND FACE SKIN CANCER) Hx Thoracic Surgery: No Hx Orthopedic: No Hx Urinary Tract Surgery: No Social History Smoking Status: Never Smoker Hx Substance Use: No Hx Alcohol Use: No Allergies Coded Allergies: No Known Allergies (Verified , 05/26/17) Current Medications Reported Home Medications Medications Dose Route/Sig Max Daily Dose Days Date Category Lantus (Insulin Glargine) 100 Unit/Ml Inj 52 Units SC QAM 01/18/17 Reported Phoslo 667 Mg (Calcium Acetate) 667 Mg Cap 2 Capsules PO AC 01/18/17 Reported Imdur Ext Rel (Isosorbide Mononitrate) 30 Mg Ertab 30 Mg PO QPM 10/28/16 Reported Nifedipine Er (Nifedipine) 90 Mg Tab 90 Mg PO QAM 10/28/16 Reported Toprol Xl (Metoprolol Succinate) 200 Mg Tab 200 Mg PO QPM 10/28/16 Reported Rapaflo (Silodosin) 8 Mg Cap 8 Mg PO HS 07/20/16 Reported Multivitamin (Multivitamins) Tab 1 Tab PO QPM 07/20/16 Reported Meclizine Hcl 25 Mg Tab 25 Mg PO UD PRN 07/20/16 Reported Avodart (Dutasteride) 0.5 Mg Cap 0.5 Mg PO HS 07/20/16 Reported Aspirin Ec (Aspirin) 81 Mg Tab 81 Mg PO HS 07/20/16 Reported Vital Signs Weight (Kilograms): 81.50 Height (Feet): 5 Height (Inches): 9 Date Time Temp Pulse Resp B/P (MAP) Pulse Ox O2 Delivery O2 Flow Rate FiO2 05/26/17 06:26 36.6 63 18 137/67 (90) 98 Room Air Physical Exam General Appearance: WD/WN, no apparent distress Respiratory/Chest: Auscultation: breath sounds normal Cardiovascular: Heart Auscultation: RRR Abdomen: Bowel Sounds: normal Inspection & Palpation: soft, non-distended, no tenderness, guarding & rebound Assessment and Plan EUS with possible FNA/ cyst aspiration consent obtained; rsk benefits alternatives d/w pt pancreatitis risk approximately 55 all questions answered Pt agrees to proceed daron
[2017-05-26 08:29] LABS: ALBUMIN 3.4 gm/dl (3.4-5.0); TOTAL PROTEIN 7.9 gm/dl (6.4-8.2)
--- NOTE | 2017-05-26 09:26 | Discharge Instructions ---
Endoscopy Patient Instructions Date / Procedure(s) Performed May 26, 2017. Other Allergy Information Coded Allergies: No Known Allergies (Verified , 05/26/17) Discharge Date / Findings May 26, 2017. 1) panc body cyst aspirated 2) gastric antrum gastritis- bx 3) CBD dilation with CBD stone Medication Instructions Restart Stopped Medication(s): Reported Home Medications Medications Dose Route/Sig Max Daily Dose Days Date Category Lantus (Insulin Glargine) 100 Unit/Ml Inj 52 Units SC QAM 01/18/17 Reported Phoslo 667 Mg (Calcium Acetate) 667 Mg Cap 2 Capsules PO AC 01/18/17 Reported Imdur Ext Rel (Isosorbide Mononitrate) 30 Mg Ertab 30 Mg PO QPM 10/28/16 Reported Nifedipine Er (Nifedipine) 90 Mg Tab 90 Mg PO QAM 10/28/16 Reported Toprol Xl (Metoprolol Succinate) 200 Mg Tab 200 Mg PO QPM 10/28/16 Reported Rapaflo (Silodosin) 8 Mg Cap 8 Mg PO HS 07/20/16 Reported Multivitamin (Multivitamins) Tab 1 Tab PO QPM 07/20/16 Reported Meclizine Hcl 25 Mg Tab 25 Mg PO UD PRN 07/20/16 Reported Avodart (Dutasteride) 0.5 Mg Cap 0.5 Mg PO HS 07/20/16 Reported Aspirin Ec (Aspirin) 81 Mg Tab 81 Mg PO HS 07/20/16 Reported Cipro 500mg daily x 5 days Cipro 500mg daily x 5 days Dc med will send electronically to pharmacy Reported Home Medications Medications Dose Route/Sig Max Daily Dose Days Date Category Lantus (Insulin Glargine) 100 Unit/Ml Inj 52 Units SC QAM 01/18/17 Reported Phoslo 667 Mg (Calcium Acetate) 667 Mg Cap 2 Capsules PO AC 01/18/17 Reported Imdur Ext Rel (Isosorbide Mononitrate) 30 Mg Ertab 30 Mg PO QPM 10/28/16 Reported Nifedipine Er (Nifedipine) 90 Mg Tab 90 Mg PO QAM 10/28/16 Reported Toprol Xl (Metoprolol Succinate) 200 Mg Tab 200 Mg PO QPM 10/28/16 Reported Rapaflo (Silodosin) 8 Mg Cap 8 Mg PO HS 07/20/16 Reported Multivitamin (Multivitamins) Tab 1 Tab PO QPM 07/20/16 Reported Meclizine Hcl 25 Mg Tab 25 Mg PO UD PRN 07/20/16 Reported Avodart (Dutasteride) 0.5 Mg Cap 0.5 Mg PO HS 07/20/16 Reported Aspirin Ec (Aspirin) 81 Mg Tab 81 Mg PO HS 07/20/16 Reported Provider Instructions Activity Restrictions - No exercising or heavy lifting for 24 hours. - Do not drink alcohol the day of the procedure. - Do not drive a car or operate machinery until the day after the procedure. - Do not make any important decisions or sign important papers in 24 hours after the procedure. Following Day: - Return to full activity which may include returning to work/school. Diet Start your diet with liquids and light foods (jello, soup, juice, toast). Then eat your usual diet if not nauseated. Treatment For Common After Affects For mild abdominal pain, bloating, or excessive gas: - Rest - Eat lightly - Lie on right side Follow-Up Information Follow-up with as scheduled Anesthesia Information What You Should Know You have had a procedure that required some medicine to reduce anxiety and discomfort. This treatment is called moderate sedation. After receiving the treatment, you may be sleepy, but you will be able to breathe on your own. The effects of the treatment may last for several hours. Follow these instructions along with Activity/Diet recommendations noted above: * Do NOT do anything where dizziness or clumsiness would be dangerous. * Rest quietly at home today, then you can be up and about tomorrow. * Have a responsible person stay with you the rest of today. * You may have had an I.V. today. If so, you may take the dressing off later today. Recommendations Call your doctor if: * Trouble breathing * Continuous vomiting for more than 24 hours * Temperature above 101 degrees * Severe abdominal pain or bloating * Pain not relieved by pain medicine ordered * There is increased drainage or redness from any incision * A large amount of rectal bleeding greater than 2-3 tablespoons. (If you had a polyp/s removed or have hemorrhoids, a small amount of blood - from the rectum is to be expected.) * You have any unanswered questions or concerns. IN THE EVENT OF A SERIOUS EMERGENCY, GO TO THE NEAREST EMERGENCY ROOM Your discharge instructions were prepared by provider Luis Carlos Knutson. Patient Instructions Signature Page Naveen Bravo Patient (or Guardian) Signature/Date: I have read and understand the instructions given to me by my caregivers. Caregiver/RN/Doctor Signature/Date: The above-named patient and/or guardian has received patient instructions on this date. + Original Patient Signature Page (only) stays with chart. Please make copy for patient.
--- NOTE | 2017-05-26 09:41 | GI REPORT ---
Procedure Date: 05/26/2017 8:04 AM Procedure: Upper EUS Indications: Common bile duct dilation (acquired) seen on CT scan, Pancreatic cyst on CT scan Medicines: General Anesthesia Complications: No immediate complications. Estimated blood loss: None. Estimated Blood Loss: Estimated blood loss: none. Procedure: Pre-Anesthesia Assessment: - Prior to the procedure, a History and Physical was performed, and patient medications and allergies were reviewed. The patient's tolerance of previous anesthesia was also reviewed. The risks and benefits of the procedure and the sedation options and risks were discussed with the patient. All questions were answered, and informed consent was obtained. Prior Anticoagulants: The patient has taken no previous anticoagulant or antiplatelet agents. ASA Grade Assessment: III - A patient with severe systemic disease. After reviewing the risks and benefits, the patient was deemed in satisfactory condition to undergo the procedure. After obtaining informed consent, the endoscope was passed under direct vision. Throughout the procedure, the patient's blood pressure, pulse, and oxygen saturations were monitored continuously. The Endosonoscope was introduced through the mouth, and advanced to the duodenum for ultrasound examination from the esophagus, stomach and duodenum. The upper EUS was accomplished without difficulty. The patient tolerated the procedure well. Findings: Endoscopic Finding : The examined esophagus was normal. Patchy mild inflammation characterized by erosions was found in the gastric antrum. Biopsies were taken with a cold forceps for histology. Biopsies were taken with a cold forceps for histology. Retained gastric contents are not identified on this exam. The ampulla, duodenal bulb, second portion of the duodenum and area of the papilla were normal. Endosonographic Finding : The esophagus, stomach and duodenum and adjacent structures were visualized endosonographically. There was no sign of significant endosonographic abnormality in the esophagus. No pathologic lymphadenopathy was identified. Endosonographic images of the stomach were unremarkable. No pathologic lymphadenopathy was identified. There was no sign of significant endosonographic abnormality in the ampulla, in the duodenal bulb, in the second portion of the duodenum and in the area of major papilla, within the duodenum. No pathologic lymphadenopathy and no masses were identified. There was no sign of significant endosonographic abnormality in the ampulla. No pathologic lymphadenopathy and no masses were identified. Many stones were visualized endosonographically in the lower third of the main bile duct and in the middle third of the main bile duct. The stones measured up to 9 mm in greatest dimension. The stones were irregular. They were hyperechoic and characterized by shadowing. There was no sign of significant endosonographic abnormality in the visualized portion of the liver. No focal pathology was identified. There was diffuse abnormal echotexture in the visualized portion of the liver. This was characterized by a heterogenous appearance. Anechoic lesions suggestive of multiple cysts were identified in the pancreatic head, pancreatic body and pancreatic tail. The largest lesion measured 21 mm by 24 mm in maximal cross-sectional diameter. There was no associated mass. Diagnostic needle aspiration for fluid was performed. Color Doppler imaging was utilized prior to needle puncture to confirm a lack of significant vascular structures within the needle path. One pass was made with the 22 gauge needle using a transgastric approach. No stylet was used. The amount of fluid collected was 3 mL. The fluid was clear and thin. Sample(s) were sent for amylase concentration, cytology and CEA. Endosonographic imaging in the pancreatic head, pancreatic body, pancreatic tail and main pancreatic duct showed no chronic pancreatitis, mass, pancreatic duct changes or parenchymal abnormalities. No lymphadenopathy seen. There was no sign of significant endosonographic abnormality in the left adrenal gland. No abnormal echogenicity was identified. An anechoic lesion suggestive of a cyst was identified in the renal pelvis of the right kidney. The lesion measured 33 mm by 33 mm in maximal cross-sectional diameter. There was a single compartment without septae. The outer wall of the lesion was not seen. There was no associated mass. There was no internal debris within the fluid-filled cavity. Impression: - Normal esophagus. - Gastritis. Biopsied. - Normal ampulla, duodenal bulb, second portion of the duodenum and area of the papilla. - There was no sign of significant pathology in the esophagus. - Endosonographic images of the stomach were unremarkable. - There was no sign of significant pathology in the ampulla, in the duodenal bulb, in the second portion of the duodenum and in the area of major papilla, within the duodenum. - There was no sign of significant pathology in the ampulla. - Many stones were visualized endosonographically in the lower third of the main bile duct and in the middle third of the main bile duct. - There was no evidence of significant pathology in the visualized portion of the liver. - There was diffuse abnormal echotexture in the visualized portion of the liver. This was characterized by a heterogenous appearance. - Multiple cystic lesions were seen in the pancreatic head, pancreatic body and pancreatic tail. Fine needle aspiration for fluid performed from the body cyst ( largest seen). - Endosonographic images of the left adrenal gland were unremarkable. - A cystic lesion measuring 33 mm by 33 mm was identified in the right kidney. Recommendation: - Discharge patient to home (ambulatory). - Advance diet as tolerated. - Cipro (ciprofloxacin) 500 mg PO daily for 5 days. - Perform an ERCP at appointment to be scheduled. - Return to referring physician as previously scheduled. - Return to GI clinic as previously scheduled. - Await cytology results and await tumor markers. MD Luis Carlos Haley MD 05/26/2017 9:40:49 AM This report has been signed electronically. Note Initiated On: 05/26/2017 8:04 AM I attest to the content of the Intraoperative Record and orders documented therein, exceptions below
--- NOTE | 2017-05-26 10:05 | Anesthesiology Progress Note ---
Anesthesia Post Op Note Date & Time May 26, 2017 at 10:04 Vital Signs Pain Intensity: 0 Vital Signs Past 12 Hours Date Time Temp Pulse Resp B/P (MAP) Pulse Ox O2 Delivery O2 Flow Rate FiO2 05/26/17 09:57 81 25 95 05/26/17 09:57 80 25 05/26/17 09:56 136/64 05/26/17 09:52 78 15 05/26/17 09:52 77 15 100 05/26/17 09:51 148/66 05/26/17 09:47 79 14 100 05/26/17 09:47 81 14 05/26/17 09:46 141/63 05/26/17 09:42 80 15 05/26/17 09:42 80 15 100 05/26/17 09:41 147/66 05/26/17 09:37 82 14 100 05/26/17 09:37 82 14 05/26/17 09:36 153/66 05/26/17 09:35 147/68 05/26/17 09:32 36.0 82 14 147/68 100 Oxymask 10 05/26/17 06:26 36.6 63 18 137/67 (90) 98 Room Air Notes Mental Status: alert / awake / arousable, participated in evaluation Pt Amnestic to Procedure: Yes Nausea / Vomiting: adequately controlled Pain: adequately controlled Airway Patency, RR, SpO2: stable & adequate BP & HR: stable & adequate Hydration State: stable & adequate Anesthetic Complications: no major complications apparent
[2017-05-26 10:20] VITALS: BP 146/67; PULSE 75; TEMP 36.4; O2SAT 95
[2017-05-26 10:51] VITALS: BP 128/48; PULSE 75; O2SAT 97
[2017-05-26 11:20] VITALS: BP 132/61; PULSE 80; TEMP 36.5; O2SAT 94
== END | disposition home or self-care (01) ==
LOC: C.ACU 05:52
PROVIDERS: ATTEND Internal Medicine Gastroenterology
DX: K86.2 Cyst of pancreas (principal); K29.70 Gastritis, unspecified, without bleeding; K80.50 Calculus of bile duct without cholangitis or cholecystitis without obstruction; N28.9 Disorder of kidney and ureter, unspecified; N18.9 Chronic kidney disease, unspecified; E11.22 Type 2 diabetes mellitus with diabetic chronic kidney disease; I12.9 Hypertensive chronic kidney disease with stage 1 through stage 4 chronic kidney disease, or unspecified chronic kidney disease; Z99.2 Dependence on renal dialysis; Z90.89 Acquired absence of other organs; Z98.890 Other specified postprocedural states; Z85.828 Personal history of other malignant neoplasm of skin; Z79.82 Long term (current) use of aspirin

== ENCOUNTER 2017-05-28 13:49 | Day surgery (SDC) | payer OTHER ==
[2017-05-27 11:46] VITALS: BMI 26.0
[~2017-05-28] VITALS: Ht 175.3 cm; Wt 81.8 kg
[~2017-05-28 13:49] MED LIST changes: -ATROPINE SULFATE 0.1 MG/ML 5ML SYR IV PRN; -CALC667C4 PO; -CIPROFLOXACIN 400MG / 200ML D5W IV ONE; -CIPROFLOXACIN 400MG / 200ML D5W ONE; -DEXAMETHASONE SOD INJ 4 MG/ML VIAL ONE; -EpHEDrine SULFATE INJ 50 MG/ML AMP IV PRN; -FENTANYL CITRATE INJ 50 MCG/1 ML 2 ML VIAL IV PRN; -FENTANYL CITRATE INJ 50 MCG/1 ML 2 ML VIAL ONE; -HYDROmorphone INJ 1 MG/ML SYR IV PRN; -LACTATED RINGER'S 1000ML 1,000 ML IV SCH; -MIDAZOLAM HCL 1 MG/ML 2ML VIAL ONE; -ONDANSETRON INJ 2 MG/ML 2 ML VIAL IV PRN; -ONDANSETRON INJ 2 MG/ML 2 ML VIAL ONE; -PROPOFOL IV EMULSION 10 MG/ML 20 ML VIAL IV ONE; -SODIUM CHLORIDE 0.9% 500ML 500 ML IV ONE; -SUCCINYLCHOLINE CHLORIDE 20 MG/ML 10 ML VIAL IV ONE
[2017-05-28 14:24] VITALS: BP 145/66; PULSE 67; TEMP 36.5; O2SAT 97; Ht 175.3 cm; Wt 81.8 kg
[2017-05-28 14:51] LABS: CALCIUM 9.7 mg/dl (8.5-10.1); CREATININE 5.58 mg/dl (0.60-1.40)
[2017-05-28] MEDS ORDERED: SODIUM CHLORIDE 0.9% 500ML 500 ML IV ONE (16:29)
[2017-05-28] MEDS ORDERED: ROCURONIUM BROMIDE 10 MG/ML 5 ML VIAL IV ONE (16:30)
[2017-05-28] MEDS ORDERED: LIDOCAINE HCL 2% 2 ML VIAL (20MG/ML) ONE (16:30)
[2017-05-28] MEDS ORDERED: CIPROFLOXACIN 400MG / 200ML D5W IV ONE (16:30)
[2017-05-28] MEDS ORDERED: FENTANYL CITRATE INJ 50 MCG/1 ML 2 ML VIAL ONE (16:30)
[2017-05-28] MEDS ORDERED: ONDANSETRON INJ 2 MG/ML 2 ML VIAL ONE (16:30)
[2017-05-28] MEDS ORDERED: PROPOFOL IV EMULSION 10 MG/ML 20 ML VIAL IV ONE (16:30)
--- NOTE | 2017-05-28 16:32 | Endo History and Physical ---
History & Physical Date of Service: May 28, 2017. Chief Complaint: CBD stones; abnormal LFT Referring Physician: History of Present Illness CBD stones Past Surgical History Hx Cardiac Surgery: No Hx Internal Defibrillator: No Hx Pacemaker: No Hx Abdominal Surgery: Yes (COLON RESECTION WITH COLOSTOMY, MASS REMOVAL FROM STOMA AND HERNIA REPAIR) Hx Post-Op Nausea and Vomiting: No Hx Cancer Surgery: Yes (BACK AND FACE SKIN CANCER) Hx Thoracic Surgery: No Hx Orthopedic: No Hx Urinary Tract Surgery: No Social History Smoking Status: Never Smoker Hx Substance Use: No Hx Alcohol Use: No Allergies Coded Allergies: No Known Allergies (Verified , 05/28/17) Current Medications Reported Home Medications Medications Dose Route/Sig Max Daily Dose Days Date Category Dose Instructions Lantus (Insulin Glargine) 100 Unit/Ml Inj 52 Units SC QAM 01/18/17 Reported Imdur Ext Rel (Isosorbide Mononitrate) 30 Mg Ertab 30 Mg PO QPM 10/28/16 Reported Nifedipine Er (Nifedipine) 90 Mg Tab 90 Mg PO QAM 10/28/16 Reported Toprol Xl (Metoprolol Succinate) 200 Mg Tab 200 Mg PO QPM 10/28/16 Reported Rapaflo (Silodosin) 8 Mg Cap 8 Mg PO HS 07/20/16 Reported Multivitamin (Multivitamins) Tab 1 Tab PO QAM 07/20/16 Reported Meclizine Hcl 25 Mg Tab 25 Mg PO UD PRN 07/20/16 Reported Avodart (Dutasteride) 0.5 Mg Cap 0.5 Mg PO QAM 07/20/16 Reported Aspirin Ec (Aspirin) 81 Mg Tab 81 Mg PO HS 07/20/16 Reported OK TO CONTINUE PER SURGEON PER SPOUSE Vital Signs Weight (Kilograms): 81.82 Height (Feet): 5 Height (Inches): 9 Date Time Temp Pulse Resp B/P (MAP) Pulse Ox O2 Delivery O2 Flow Rate FiO2 05/28/17 14:24 36.5 67 20 145/66 (92) 97 Room Air Physical Exam General Appearance: WD/WN, no apparent distress Respiratory/Chest: Auscultation: breath sounds normal Cardiovascular: Heart Auscultation: RRR Abdomen: Bowel Sounds: normal Inspection & Palpation: soft, non-distended, no tenderness, guarding & rebound Assessment and Plan ERCP/sphicterotomy for stone extraction; possible stent placement consent obtained; risk/benefits d/w pt including but not limited to 5 % risk pancreatitis
[2017-05-28] MEDS ORDERED: PHENYLEPHRINE 100MCG/ML 5ML SYR ONE (17:05)
--- NOTE | 2017-05-28 18:00 | Discharge Instructions ---
Endoscopy Patient Instructions Date / Procedure(s) Performed May 28, 2017. ERCP Allergy Information Coded Allergies: No Known Allergies (Verified , 05/28/17) Discharge Date / Findings May 28, 2017. CBD stones; removed Medication Instructions Restart Stopped Medication(s): Reported Home Medications Medications Dose Route/Sig Max Daily Dose Days Date Category Dose Instructions Lantus (Insulin Glargine) 100 Unit/Ml Inj 52 Units SC QAM 01/18/17 Reported Imdur Ext Rel (Isosorbide Mononitrate) 30 Mg Ertab 30 Mg PO QPM 10/28/16 Reported Nifedipine Er (Nifedipine) 90 Mg Tab 90 Mg PO QAM 10/28/16 Reported Toprol Xl (Metoprolol Succinate) 200 Mg Tab 200 Mg PO QPM 10/28/16 Reported Rapaflo (Silodosin) 8 Mg Cap 8 Mg PO HS 07/20/16 Reported Multivitamin (Multivitamins) Tab 1 Tab PO QAM 07/20/16 Reported Meclizine Hcl 25 Mg Tab 25 Mg PO UD PRN 07/20/16 Reported Avodart (Dutasteride) 0.5 Mg Cap 0.5 Mg PO QAM 07/20/16 Reported Aspirin Ec (Aspirin) 81 Mg Tab 81 Mg PO HS 07/20/16 Reported OK TO CONTINUE PER SURGEON PER SPOUSE Continue Cipro as previously prescribed Will need repeat EGD to remove pancreatic stent Reported Home Medications Medications Dose Route/Sig Max Daily Dose Days Date Category Dose Instructions Lantus (Insulin Glargine) 100 Unit/Ml Inj 52 Units SC QAM 01/18/17 Reported Imdur Ext Rel (Isosorbide Mononitrate) 30 Mg Ertab 30 Mg PO QPM 10/28/16 Reported Nifedipine Er (Nifedipine) 90 Mg Tab 90 Mg PO QAM 10/28/16 Reported Toprol Xl (Metoprolol Succinate) 200 Mg Tab 200 Mg PO QPM 10/28/16 Reported Rapaflo (Silodosin) 8 Mg Cap 8 Mg PO HS 07/20/16 Reported Multivitamin (Multivitamins) Tab 1 Tab PO QAM 07/20/16 Reported Meclizine Hcl 25 Mg Tab 25 Mg PO UD PRN 07/20/16 Reported Avodart (Dutasteride) 0.5 Mg Cap 0.5 Mg PO QAM 07/20/16 Reported Aspirin Ec (Aspirin) 81 Mg Tab 81 Mg PO HS 07/20/16 Reported OK TO CONTINUE PER SURGEON PER SPOUSE Continue Cipro as previously prescribed Will need repeat EGD to remove pancreatic stent Provider Instructions Activity Restrictions - No exercising or heavy lifting for 24 hours. - Do not drink alcohol the day of the procedure. - Do not drive a car or operate machinery until the day after the procedure. - Do not make any important decisions or sign important papers in 24 hours after the procedure. Following Day: - Return to full activity which may include returning to work/school. Diet Start your diet with liquids and light foods (jello, soup, juice, toast). Then eat your usual diet if not nauseated. Treatment For Common After Affects For mild abdominal pain, bloating, or excessive gas: - Rest - Eat lightly - Lie on right side Follow-Up Information Follow-up with as scheduled Anesthesia Information What You Should Know You have had a procedure that required some medicine to reduce anxiety and discomfort. This treatment is called moderate sedation. After receiving the treatment, you may be sleepy, but you will be able to breathe on your own. The effects of the treatment may last for several hours. Follow these instructions along with Activity/Diet recommendations noted above: * Do NOT do anything where dizziness or clumsiness would be dangerous. * Rest quietly at home today, then you can be up and about tomorrow. * Have a responsible person stay with you the rest of today. * You may have had an I.V. today. If so, you may take the dressing off later today. Recommendations Call your doctor if: * Trouble breathing * Continuous vomiting for more than 24 hours * Temperature above 101 degrees * Severe abdominal pain or bloating * Pain not relieved by pain medicine ordered * There is increased drainage or redness from any incision * A large amount of rectal bleeding greater than 2-3 tablespoons. (If you had a polyp/s removed or have hemorrhoids, a small amount of blood - from the rectum is to be expected.) * You have any unanswered questions or concerns. IN THE EVENT OF A SERIOUS EMERGENCY, GO TO THE NEAREST EMERGENCY ROOM Your discharge instructions were prepared by provider Luis Carlos Knutson. Patient Instructions Signature Page Naveen Bravo Patient (or Guardian) Signature/Date: I have read and understand the instructions given to me by my caregivers. Caregiver/RN/Doctor Signature/Date: The above-named patient and/or guardian has received patient instructions on this date. + Original Patient Signature Page (only) stays with chart. Please make copy for patient.
--- NOTE | 2017-05-28 18:20 | GI REPORT ---
Procedure Date: 05/28/2017 5:06 PM Procedure: ERCP Indications: Common bile duct stone(s) Medicines: General Anesthesia, Cipro 400 mg IV Complications: No immediate complications. Estimated blood loss: None Estimated Blood Loss: Estimated blood loss: none. Procedure: Pre-Anesthesia Assessment: - Prior to the procedure, a History and Physical was performed, and patient medications and allergies were reviewed. The patient's tolerance of previous anesthesia was also reviewed. The risks and benefits of the procedure and the sedation options and risks were discussed with the patient. All questions were answered, and informed consent was obtained. Prior Anticoagulants: The patient has taken no previous anticoagulant or antiplatelet agents. ASA Grade Assessment: III - A patient with severe systemic disease. After reviewing the risks and benefits, the patient was deemed in satisfactory condition to undergo the procedure. After obtaining informed consent, the scope was passed under direct vision. Throughout the procedure, the patient's blood pressure, pulse, and oxygen saturations were monitored continuously. The Scope was introduced through the mouth, and advanced to the duodenum and used to inject contrast into the bile duct and ventral pancreatic duct. The ERCP was accomplished without difficulty. The patient tolerated the procedure well. Findings: A personal injury law specialist film of the abdomen was obtained. Surgical clips were seen in the area of the right upper quadrant of the abdomen. The scope was advanced to a normal major papilla in the descending duodenum. Examination of the pharynx, larynx and associated structures, and upper GI tract was normal. The major papilla was bulging. A 0.035 inch straight standard wire was passed into the ventral pancreatic duct. One 5 Fr by 4 cm temporary pancreatic stent with a single external pigtail and a single internal flap was placed 4 cm into the ventral pancreatic duct. Clear fluid flowed through the stent. The stent was in good position. A 0.035 inch straight standard wire was passed into the biliary tree. The short-nosed traction sphincterotome was passed over the guidewire and the bile duct was then deeply cannulated. Contrast was injected. I personally interpreted the bile duct images. Ductal flow of contrast was adequate. Image quality was adequate. Contrast extended to the entire biliary tree. Opacification of the main bile duct was successful. The maximum diameter of the ducts was 10 mm. The lower third of the main bile duct and middle third of the main bile duct contained three stones, the largest of which was 12 mm in diameter. A 5 mm biliary sphincterotomy was made with a short nose sphincterotome using ERBE electrocautery. There was no post-sphincterotomy bleeding. The biliary tree was swept with an 8.5 mm balloon, 12 mm balloon and 15 mm balloon starting at the bifurcation. Sludge was swept from the duct. All stones were removed. -Note; Final occlusion cholangiogram demonstrated no persisting fixed or mobile filling defects. The 8.5 and 12 mm balloon passed easily. The PD was not opacified, however because of the ampulla appearance and initial wire cannulation into the PD, a stent was placed into the PD which permitted easy entrance into the biliary system once PD stent in place. -No samples taken. Impression: - The major papilla appeared to be bulging. - Choledocholithiasis was found. Complete removal was accomplished by biliary sphincterotomy and balloon extraction. - One temporary pancreatic stent was placed into the ventral pancreatic duct. - A biliary sphincterotomy was performed. - The biliary tree was swept. Recommendation: - Continue present medications. - Cipro (ciprofloxacin) 500 mg PO daily for 3 days. - Repeat ERCP in 1 week for stent removal from PD in 1-2 weeks . LFTs also on day of EGD for PD removal. MD Luis Carlos Haley MD 05/28/2017 6:20:25 PM This report has been signed electronically. Note Initiated On: 05/28/2017 5:06 PM I attest to the content of the Intraoperative Record and orders documented therein, exceptions below
--- NOTE | 2017-05-28 18:34 | DIAGNOSTIC IMAGING REPORT ---
ERCP BILIARY DUCTAL CLINICAL HISTORY: EXPLORE DUCTS COMPARISON STUDY: Abdominal CT 03/30/2017. FLUOROSCOPY TIME: 8 minutes and 44 seconds.. FINDINGS: The endoscope was passed to the second portion of duodenum and the ampulla was cannulated by the printing specialist. A guidewire and contrast were placed in the distended common bile duct. There are filling defects within the distal common bile duct. Main pancreatic duct stent was placed. A balloon sweep was performed within the common bile duct. Final image demonstrates a patent and normal caliber common bile duct. [id number] intra-hepatic bile duct dilatation persists. IMPRESSION: 1. Fluoroscopy provided for ERCP. 2. A balloon sweep was performed and the common bile duct now appears patent. 3. A main pancreatic duct stent was placed. Electronically signed by: Kory Jett M.D. 05/28/2017 6:32 PM Dictated Date/Time: 05/28/2017 6:29 PM
--- NOTE | 2017-05-28 18:49 | Anesthesiology Progress Note ---
Anesthesia Post Op Note Date & Time May 28, 2017 at 18:48 Vital Signs Pain Intensity: 0 Vital Signs Past 12 Hours Date Time Temp Pulse Resp B/P (MAP) Pulse Ox O2 Delivery O2 Flow Rate FiO2 05/28/17 18:35 36.3 68 14 134/68 96 Room Air 05/28/17 18:25 71 14 130/67 96 Room Air 05/28/17 18:15 74 14 133/66 95 Room Air 05/28/17 18:05 36.2 79 16 147/68 95 Room Air 05/28/17 14:24 36.5 67 20 145/66 (92) 97 Room Air Notes Mental Status: alert / awake / arousable, participated in evaluation Pt Amnestic to Procedure: Yes Nausea / Vomiting: adequately controlled Pain: adequately controlled Airway Patency, RR, SpO2: stable & adequate BP & HR: stable & adequate Hydration State: stable & adequate Anesthetic Complications: no major complications apparent
[2017-05-28 18:50] VITALS: BP 140/65; PULSE 67; TEMP 36.4; O2SAT 95
[2017-05-28 19:20] VITALS: BP 144/65; PULSE 66; TEMP 36.2; O2SAT 96
== END 2017-05-28 19:33 | disposition home or self-care (01) ==
LOC: C.ACU 13:49
PROVIDERS: ATTEND Internal Medicine Gastroenterology
DX: K80.50 Calculus of bile duct without cholangitis or cholecystitis without obstruction (principal); I12.0 Hypertensive chronic kidney disease with stage 5 chronic kidney disease or end stage renal disease; N18.6 End stage renal disease; E11.9 Type 2 diabetes mellitus without complications; Z79.82 Long term (current) use of aspirin; Z79.4 Long term (current) use of insulin; Z90.49 Acquired absence of other specified parts of digestive tract

== ENCOUNTER → 2017-06-03 | Day surgery (SDC) | payer OTHER ==
[~2017-06-03] VITALS: Ht 175.3 cm; Wt 81.8 kg
[~2017-06-03] MED LIST changes: +LIDOCAINE HCL 2% 2 ML VIAL (20MG/ML) ONE; +PROPOFOL IV EMULSION 10 MG/ML 20 ML VIAL IV ONE; -SODIUM CHLORIDE 0.9% 1000ML 1,000 ML IV SCH; +SODIUM CHLORIDE 0.9% 500ML 500 ML IV ONE
[2017-06-03 14:42] VITALS: Ht 175.3 cm; Wt 81.8 kg
--- NOTE | 2017-06-03 15:13 | Endo History and Physical ---
History & Physical Date of Service: Jun 03, 2017. Chief Complaint: Stent removal Referring Physician: Dr Pappas History of Present Illness PD stent removal Past Surgical History Hx Cardiac Surgery: No Hx Internal Defibrillator: No Hx Pacemaker: No Hx Abdominal Surgery: Yes Hx Post-Op Nausea and Vomiting: No Hx Cancer Surgery: No Hx Thoracic Surgery: No Hx Orthopedic: Yes (NECK SURG) Hx Urinary Tract Surgery: No Family History None Social History Smoking Status: Never Smoker Hx Substance Use: No Hx Alcohol Use: No Allergies Coded Allergies: No Known Allergies (Verified , 06/03/17) Current Medications Reported Home Medications Medications Dose Route/Sig Max Daily Dose Days Date Category Dose Instructions Lantus (Insulin Glargine) 100 Unit/Ml Inj 52 Units SC QAM 01/18/17 Reported Imdur Ext Rel (Isosorbide Mononitrate) 30 Mg Ertab 30 Mg PO QPM 10/28/16 Reported Nifedipine Er (Nifedipine) 90 Mg Tab 90 Mg PO QAM 10/28/16 Reported Toprol Xl (Metoprolol Succinate) 200 Mg Tab 200 Mg PO QPM 10/28/16 Reported Rapaflo (Silodosin) 8 Mg Cap 8 Mg PO HS 07/20/16 Reported Multivitamin (Multivitamins) Tab 1 Tab PO QAM 07/20/16 Reported Meclizine Hcl 25 Mg Tab 25 Mg PO UD PRN 07/20/16 Reported Avodart (Dutasteride) 0.5 Mg Cap 0.5 Mg PO QAM 07/20/16 Reported Aspirin Ec (Aspirin) 81 Mg Tab 81 Mg PO HS 07/20/16 Reported OK TO CONTINUE PER SURGEON PER SPOUSE Vital Signs Weight (Kilograms): 81.82 Height (Feet): 5 Height (Inches): 9 Date Time Temp Pulse Resp B/P (MAP) Pulse Ox O2 Delivery O2 Flow Rate FiO2 06/03/17 14:50 36.7 68 18 139/65 (89) 96 Room Air Physical Exam General Appearance: WD/WN, no apparent distress Respiratory/Chest: Auscultation: breath sounds normal Cardiovascular: Heart Auscultation: RRR Abdomen: Bowel Sounds: normal Inspection & Palpation: soft, non-distended, no tenderness, guarding & rebound Assessment and Plan PD stent removal EGD
--- NOTE | 2017-06-03 15:56 | GI REPORT ---
Procedure Date: 06/03/2017 3:15 PM Procedure: Upper GI endoscopy Indications: Foreign body in the small bowel Medicines: Propofol per Anesthesia Complications: No immediate complications. Estimated blood loss: Minimal. Estimated Blood Loss: Estimated blood loss was minimal. Procedure: Pre-Anesthesia Assessment: - Prior to the procedure, a History and Physical was performed, and patient medications and allergies were reviewed. The patient's tolerance of previous anesthesia was also reviewed. The risks and benefits of the procedure and the sedation options and risks were discussed with the patient. All questions were answered, and informed consent was obtained. Prior Anticoagulants: The patient has taken no previous anticoagulant or antiplatelet agents. ASA Grade Assessment: III - A patient with severe systemic disease. After reviewing the risks and benefits, the patient was deemed in satisfactory condition to undergo the procedure. After obtaining informed consent, the endoscope was passed under direct vision. Throughout the procedure, the patient's blood pressure, pulse, and oxygen saturations were monitored continuously. The scope was introduced through the mouth, and advanced to the second part of duodenum. The upper GI endoscopy was accomplished without difficulty. The patient tolerated the procedure well. Findings: The examined esophagus was normal. Patchy minimal inflammation characterized by erosions was found in the prepyloric region of the stomach. The duodenal bulb, first portion of the duodenum and second portion of the duodenum were normal. A previously placed plastic pancreatic stent was seen in the ampulla. Stent removal was accomplished with a regular forceps. Diffuse mildly congested mucosa without active bleeding and with no stigmata of bleeding was found in the ampulla. Biopsies were taken with a cold forceps for histology. Estimated blood loss was minimal. Verification of patient identification for the specimen was done by the physician and trailer technician using the patient's name and medical record number. Estimated blood loss was minimal. Retained gastric contents are not identified on this exam. The cardia and gastric fundus were normal on retroflexion. Impression: - Normal esophagus. - Gastritis. - Normal duodenal bulb, first portion of the duodenum and second portion of the duodenum. - Plastic pancreatic stent in the duodenum. Removed. - Congested duodenal mucosa. Biopsied. Recommendation: - Discharge patient to home (ambulatory). - Resume previous diet. - Continue present medications. - Await pathology results. - Return to GI clinic as previously scheduled. - Results of recent EUS d/w pt/spouse. CEa 100; amylase < 30 and FNA with benign galndular cells. Gastric mucosa bx - H pylori negative. Will consider repeat MRI imaging in 6 months MD Luis Carlos Haley MD 06/03/2017 3:55:32 PM This report has been signed electronically. Note Initiated On: 06/03/2017 3:15 PM I attest to the content of the Intraoperative Record and orders documented therein, exceptions below
--- NOTE | 2017-06-03 15:58 | Discharge Instructions ---
Endoscopy Patient Instructions Date / Procedure(s) Performed Jun 03, 2017. EGD Allergy Information Coded Allergies: No Known Allergies (Verified , 06/03/17) Discharge Date / Findings Jun 03, 2017. PD stent - removed ampulla area biopsied Medication Instructions Restart Stopped Medication(s): Reported Home Medications Medications Dose Route/Sig Max Daily Dose Days Date Category Dose Instructions Lantus (Insulin Glargine) 100 Unit/Ml Inj 52 Units SC QAM 01/18/17 Reported Imdur Ext Rel (Isosorbide Mononitrate) 30 Mg Ertab 30 Mg PO QPM 10/28/16 Reported Nifedipine Er (Nifedipine) 90 Mg Tab 90 Mg PO QAM 10/28/16 Reported Toprol Xl (Metoprolol Succinate) 200 Mg Tab 200 Mg PO QPM 10/28/16 Reported Rapaflo (Silodosin) 8 Mg Cap 8 Mg PO HS 07/20/16 Reported Multivitamin (Multivitamins) Tab 1 Tab PO QAM 07/20/16 Reported Meclizine Hcl 25 Mg Tab 25 Mg PO UD PRN 07/20/16 Reported Avodart (Dutasteride) 0.5 Mg Cap 0.5 Mg PO QAM 07/20/16 Reported Aspirin Ec (Aspirin) 81 Mg Tab 81 Mg PO HS 07/20/16 Reported OK TO CONTINUE PER SURGEON PER SPOUSE Reported Home Medications Medications Dose Route/Sig Max Daily Dose Days Date Category Dose Instructions Lantus (Insulin Glargine) 100 Unit/Ml Inj 52 Units SC QAM 01/18/17 Reported Imdur Ext Rel (Isosorbide Mononitrate) 30 Mg Ertab 30 Mg PO QPM 10/28/16 Reported Nifedipine Er (Nifedipine) 90 Mg Tab 90 Mg PO QAM 10/28/16 Reported Toprol Xl (Metoprolol Succinate) 200 Mg Tab 200 Mg PO QPM 10/28/16 Reported Rapaflo (Silodosin) 8 Mg Cap 8 Mg PO HS 07/20/16 Reported Multivitamin (Multivitamins) Tab 1 Tab PO QAM 07/20/16 Reported Meclizine Hcl 25 Mg Tab 25 Mg PO UD PRN 07/20/16 Reported Avodart (Dutasteride) 0.5 Mg Cap 0.5 Mg PO QAM 07/20/16 Reported Aspirin Ec (Aspirin) 81 Mg Tab 81 Mg PO HS 07/20/16 Reported OK TO CONTINUE PER SURGEON PER SPOUSE Provider Instructions Activity Restrictions - No exercising or heavy lifting for 24 hours. - Do not drink alcohol the day of the procedure. - Do not drive a car or operate machinery until the day after the procedure. - Do not make any important decisions or sign important papers in 24 hours after the procedure. Following Day: - Return to full activity which may include returning to work/school. Diet Start your diet with liquids and light foods (jello, soup, juice, toast). Then eat your usual diet if not nauseated. Treatment For Common After Affects For mild abdominal pain, bloating, or excessive gas: - Rest - Eat lightly - Lie on right side Follow-Up Information Follow-up with Dr Pappas as scheduled Anesthesia Information What You Should Know You have had a procedure that required some medicine to reduce anxiety and discomfort. This treatment is called moderate sedation. After receiving the treatment, you may be sleepy, but you will be able to breathe on your own. The effects of the treatment may last for several hours. Follow these instructions along with Activity/Diet recommendations noted above: * Do NOT do anything where dizziness or clumsiness would be dangerous. * Rest quietly at home today, then you can be up and about tomorrow. * Have a responsible person stay with you the rest of today. * You may have had an I.V. today. If so, you may take the dressing off later today. Recommendations Call your doctor if: * Trouble breathing * Continuous vomiting for more than 24 hours * Temperature above 101 degrees * Severe abdominal pain or bloating * Pain not relieved by pain medicine ordered * There is increased drainage or redness from any incision * A large amount of rectal bleeding greater than 2-3 tablespoons. (If you had a polyp/s removed or have hemorrhoids, a small amount of blood - from the rectum is to be expected.) * You have any unanswered questions or concerns. IN THE EVENT OF A SERIOUS EMERGENCY, GO TO THE NEAREST EMERGENCY ROOM Your discharge instructions were prepared by provider Luis Carlos Knutson. Patient Instructions Signature Page Naveen Bravo Patient (or Guardian) Signature/Date: I have read and understand the instructions given to me by my caregivers. Caregiver/RN/Doctor Signature/Date: The above-named patient and/or guardian has received patient instructions on this date. + Original Patient Signature Page (only) stays with chart. Please make copy for patient.
--- NOTE | 2017-06-03 16:13 | Anesthesiology Progress Note ---
Anesthesia Post Op Note Date & Time Jun 03, 2017 at 16:12 Vital Signs Pain Intensity: 0 Vital Signs Past 12 Hours Date Time Temp Pulse Resp B/P (MAP) Pulse Ox O2 Delivery O2 Flow Rate FiO2 06/03/17 16:05 74 18 113/60 (77) 98 Room Air 06/03/17 15:51 71 16 108/47 (67) 99 Room Air 06/03/17 14:50 36.7 68 18 139/65 (89) 96 Room Air Notes Mental Status: alert / awake / arousable, participated in evaluation Pt Amnestic to Procedure: Yes Nausea / Vomiting: adequately controlled Pain: adequately controlled Airway Patency, RR, SpO2: stable & adequate BP & HR: stable & adequate Hydration State: stable & adequate Anesthetic Complications: no major complications apparent
[2017-06-03 16:23] VITALS: BP 121/60; PULSE 69; O2SAT 98
== END | disposition home or self-care (01) ==
LOC: C.GI 14:20
PROVIDERS: ATTEND Internal Medicine Gastroenterology
DX: Z46.89 Encounter for fitting and adjustment of other specified devices (principal); Z79.4 Long term (current) use of insulin; Z79.899 Other long term (current) drug therapy; Z79.82 Long term (current) use of aspirin

== ENCOUNTER 2018-09-26 05:35 | Inpatient (IN) ==
[2018-09-26 06:26] LABS: Basophils # (auto) 0.01 K/uL (0-0.2); Basophils % (auto) 0.1 %; Hematocrit (blood only) 27.4 % (42-52); Hemoglobin 9.1 g/dL (14.0-18.0); Immature Granulocytes # (auto) 0.03 K/uL (0.00-0.02); Immature Granulocytes % (auto) 0.2 %; Lymphocytes # (auto) 0.57 K/uL (1.2-3.4); Lymphocytes % (auto) 4.4 %; Mean Corpuscular Hgb Conc 33.2 g/dL (32-36); Mean Corpuscular Volume 91.9 fL (80-100); Mean Platelet Volume 10.7 fL (7.4-10.4); Monocytes # (auto) 1.13 K/uL (0.11-0.59); Monocytes % (auto) 8.8 %; Neutrophils # (auto) 11.12 K/uL (1.4-6.5); Neutrophils % (auto) 86.5 %; Platelet Count 246 K/uL (130-400); RDW Coefficient of Variation 16.4 % (11.5-14.5); RDW Standard Deviation 54.6 fL (36.4-46.3); Red Blood Count 2.98 M/uL (4.7-6.1); White Blood Count 12.86 K/uL (4.8-10.8)
[2018-09-26 06:29] LABS: iSTAT Creatinine 7.9 mg/dl (0.6-1.3); iSTAT Hemoglobin 9.5 g/dl (14.0-18.0); iSTAT Ionized Calcium 1.26 mmol/l (1.12-1.32)
--- NOTE | 2018-09-26 06:36 | XRay Report ---
XR chest 1V portable CLINICAL HISTORY: weakness, short of breath dyspnea COMPARISON STUDY: 09/13/2018 FINDINGS: Developing components of pulmonary edema. Mild cardiomegaly. Trace pleural fluid both costo phrenic angles. IMPRESSION: Developing pulmonary edema/congestive failure. The above report was generated using voice recognition software. It may contain grammatical, syntax or spelling errors. Electronically signed by: Jorge García M.D. 09/26/2018 6:34 AM
[2018-09-26 06:56] LABS: Alanine Aminotransferase 26 U/L (12-78); Albumin Level 3.7 gm/dl (3.4-5.0); Alkaline Phosphatase 80 U/L (45-117); Aspartate Aminotransferase 29 U/L (15-37); BUN Creatinine Ratio 5.2 (10-20); Bilirubin,Total 0.6 mg/dl (0.2-1); Blood Urea Nitrogen 39 mg/dl (7-18); Calcium 11.4 mg/dl (8.5-10.1); Carbon Dioxide 28 mmol/L (21-32); Chloride 95 mmol/L (98-107); Creatine Kinase 78 U/L (39-308); Est GFR (African American) 7.7; Est GFR (Non-African American) 6.6; Glucose 174 mg/dl (70-99); Magnesium 2.5 mg/dl (1.8-2.4); Potassium 4.9 mmol/L (3.5-5.1); Sodium 135 mmol/L (136-145); Total Protein 8.3 gm/dl (6.4-8.2)
[2018-09-26 07:25] LABS: INR 1.2 (0.9-1.1); Partial Thromboplastin Ratio 1.2; Partial Thromboplastin Time 31.9 Seconds (21.0-31.0); Prothrombin Time 11.8 Seconds (9.0-12.0)
[2018-09-26] MEDS ORDERED: HEPARIN SOD (PORCINE) 1000 UNIT/ML 10 ML VIAL IV ONE (09:45)
[2018-09-26] MEDS ORDERED: SODIUM CHLORIDE 0.9% 1000ML 1,000 ML IV PRN (09:45)
[2018-09-26] MEDS ORDERED: GLUCOSE 40% GEL 15 GM TUBE PO PRN (09:51)
[2018-09-26] MEDS ORDERED: INSULIN GLARGINE SOLOSTAR 100 UNITS/ML 3 ML PEN SQ SCH (09:51)
[2018-09-26] MEDS ORDERED: NON-FORMULARY MEDICATION (Dutasteride 0.5 MG) PO SCH (09:51)
[2018-09-26] MEDS ORDERED: LIDOCAINE/PRILOCAINE 2.5% EA CRM EXT PRN (09:51)
[2018-09-26] MEDS ORDERED: ONDANSETRON INJ 2 MG/ML 2 ML VIAL IV PRN (09:51)
[2018-09-26] MEDS ORDERED: ACETAMINOPHEN 325 MG TAB PO PRN (09:51)
[2018-09-26] MEDS ORDERED: CARBOHYDRATES FOR HYPOGLYCEMIA PO PRN (09:51)
[2018-09-26] MEDS ORDERED: DEXTROSE 50% 50 ML SYRINGE IV PRN (09:51)
[2018-09-26] MEDS ORDERED: GLUCAGON FOR INJ 1 MG VIAL SQ PRN (09:51)
[2018-09-26] MEDS ORDERED: GLUCOSE 10 TABS/TUBE PO PRN (09:51)
--- NOTE | 2018-09-26 10:46 | Nephrology Consultation ---
Date of Consultation September 26, 2018 Assessment & Plan (1) ESRD (end stage renal disease) on dialysis: -- Orders for emergent HD today have been entered into the EMR and discussed with the dialysis nurse operational communication chief -- Buttonhole technique may be employed -- Uf goal 2+ L as tolerated -- Start furosemide 80 mg to encourage urine output -- monitor metabolic profile daily -- Document I/O's (2) Pulmonary edema: -- r/o ACS -- Cardiology consult pending -- Serial troponin and EKG -- TTE pending -- UF per HD -- Diuretics to encourage urine output (3) Hypertension: (4) Hypercalcemia: -- PTH 244 earlier this month -- Hold Ca Acetate -- Monitor closely -- Consider non contrast chest CT post HD (5) Anemia: -- Hgb 10.1 earlier this month -- Tx with micera 150 Q 2 weeks and venofer 200 monthly as outpatient History of Present Illness Reason for Consultation: ESRD on HD Requesting Physician: Ilya Llanes MD Attending Physician: Ilya Llanes MD History of Present Illness Phill is a 68-year-old male with end-stage renal disease due to diabetic nephropathy. This is managed with home hemodialysis under the care of Dr. Poe. Rx is 5 tx per week (off Wednesday and Wednesday): 170, 2K, 30L/tx, Qb 400 with 15 g blunt needle using buttonhole technique. The patient had follow up in the clinic with Dr. Poe last . He was doing well at that time. Phill had experienced some increasing lower extremity neuropathic pain and nortriptyline was increased. Medical history is notable for hypertension, multiple sclerosis, BPH with elevated PSA, anemia of CKD, hyperphosphatemia, and a history of diverticulosis requiring partial colectomy with ostomy. Hypertension is managed with amlodipine 2.5 mg twice daily (held for SBP <140 mmHg) at home. Phill presented to the ER at [facility] on September 13 with a fall and notable hypoglycemia. After evaluation and improvement of his blood glucose he was discharged home. Phill has some residual kidney function. He makes 1-2 cups of urine per day according to his . There is no reported recent change in urine output. The patient had been in his normal state of health on Wednesday. Yesterday, he was very tired and slept most of the day. This is completely unusual. There were no complications with dialysis. Phill's weight was found to be a few kg below his EDW which has been 83 kg. He has weighed approximately 79 kg for the past several days. He has typically required minimal UF with HD. Net F was 0.3 L. Phill felt well at the end of treatment but immediately went back to sleep. Around 10 PM yesterday evening, he woke and experienced fairly sudden onset of chest tightness and shortness of breath. Symptoms improved after several minutes of rest. Around midnight, symptoms returned. He denies having similar symptoms of chest discomfort in the past. Phill notes that symptoms improved when he raised his arms over his head. As dyspnea persisted, he presented to the ED for additional evaluation. Evaluation has been notable for pulmonary congestion and edema as well as an elevated troponin. Cardiology consult is pending. Additionally of note is hypercalcemia noted on laboratory studies. This is new. Serum calcium was 10.3 on blood work obtained Jul 09 at dialysis. The patient is not on vitamin D. He is maintained on calcium acetate for hyperphosphatemia. Phill follows in the cardiology clinic with Dr. Wooten. He notes that he was evaluated in the clinic in May and found to be doing well at that time. TTE was updated at that time. Today, nephrology consult was requested to manage end-stage renal disease on hemodialysis. His Saida was at bedside during the visit. Allergies Allergy/AdvReac Type Severity Reaction Status Date / Time No Known Allergies Allergy Unknown Verified 09/26/18 06:16 Home Medications Home Medications Medication Instructions Recorded Confirmed Type amlodipine 2.5 mg PO BID 09/13/18 09/26/18 History aspirin [Aspir-81] 81 mg PO HS 09/13/18 09/26/18 History calcium acetate 667 mg PO 6XD 09/13/18 09/26/18 History dutasteride 0.5 mg PO QAM 09/13/18 09/26/18 History insulin glargine [Lantus U-100 60 unit SUBCUT QAM 09/13/18 09/26/18 History Insulin] lidocaine-prilocaine 1 applic TOPICAL DIRECTED PRN 09/13/18 09/26/18 History meclizine 25 mg PO DIRECTED PRN 09/13/18 09/26/18 History multivitamin 1 tab PO QAM 09/13/18 09/26/18 History nortriptyline 50 mg PO HS 09/13/18 09/26/18 History rosuvastatin 10 mg PO HS 09/13/18 09/26/18 History Patient History Medical History Hypoglycemia (Acute) Hypertension (Acute) Syncope (Acute) CHI (closed head injury) (Acute) CKD (chronic kidney disease) (Acute) Diabetes (Chronic) Proteinuria (Resolved) Multiple sclerosis (Chronic) Hypertension (Chronic) BPH (benign prostatic hyperplasia) (Chronic) Abnormal LFTs (liver function tests) (Chronic) Renal failure (ARF), acute on chronic (Chronic) Cervical spondylosis with myelopathy Concussion and edema of cervical spinal cord, initial encounter ESRD (end stage renal disease) on dialysis Surgical History Status post colostomy (Chronic) Family History Other Family history non-contributory Social History Preferred Language: Nepali Communication Ability: Effective Finishing Lab Technician Required: No Beliefs That Will Affect Care: None marital status: Current Living Situation: Spouse current occupational status: retired Other Information That Helps Us Care for You: No Feels Safe at Home: Yes Safety Concerns: Feels Safe At This Time Smoking Status: Former smoker Do You Dip or Chew Tobacco: No Second Hand Exposure: No Tobacco Cessation Education Requested by Patient: No Hx Alcohol Use: No Hx Substance Use: No Review of Systems Review of Systems: All systems reviewed & are unremarkable except as noted in HPI & below Physical Exam Constitutional: well developed; no acute distress Eyes: no scleral abnormality and no corneal abnormality ENMT: Mouth: no oral mucosal abnormality and oral mucous membranes not dry Neck: normal visual inspection and trachea midline Respiratory: no respiratory distress Auscultation: lungs clear to auscultation bilaterally; no rales Cardiovascular: Rate/Rhythm: + tachycardic Heart Sounds: normal S1, normal S2 and + murmur Vessels: + JVD Extremities: no edema Gastrointestinal (Abdomen): Percussion/Palpation: abdomen soft; abdomen nontender Musculoskeletal: Extremities: no cyanosis and no clubbing Skin: normal turgor; no rashes Neurologic: Motor/Sensory: no tremor and no asterixis Psychiatric: Orientation: alert Affect: euthymic affect Results & Data Vital Signs (Past 12 Hours) Vital Signs Temp Pulse Pulse Resp BP BP Pulse Ox 09/26/18 10:06 36.8 C 101 H 20 147/54 H 95 09/26/18 09:04 100 H 20 133/75 96 09/26/18 07:34 106 H 20 135/74 96 09/26/18 06:30 109 H 22 141/79 H 99 09/26/18 06:15 110 H 26 H 145/80 H 99 09/26/18 05:50 86 L 09/26/18 05:38 36.9 C 110 H 19 138/74 88 L Laboratory Results Laboratory Results - last 24 hr 09/26/18 09/26/18 09/26/18 05:47 06:12 06:14 WBC RBC Hgb POC Hgb 9.5 L Hct POC Hct 28 L MCV MCH MCHC RDW Std Deviation RDW Coeff of Leo Plt Count MPV Immature Gran % (Auto) Neut % (Auto) Lymph % (Auto) Hamlin % (Auto) Eos % (Auto) Baso % (Auto) Immature Gran # (Auto) Neut # (Auto) Lymph # (Auto) Hamlin # (Auto) Eos # (Auto) Baso # (Auto) PT INR APTT PTT Ratio POC Sodium 134 L Sodium POC Potassium 5.0 Potassium POC Chloride 93 L Chloride Carbon Dioxide POC Total CO2 30 Anion Gap POC Anion Gap 17.0 POC BUN 48 H BUN Creatinine POC Creatinine 7.9 H* Est Cr Clr Drug Dosing Est GFR ( Amer) Est GFR (Non-Af Amer) BUN/Creatinine Ratio Glucose POC Glucose 191 H POC Glucose (other) 178 H Lactate Calcium POC Ioniz Calcium Danny 1.26 Magnesium Total Bilirubin Direct Bilirubin AST ALT Alkaline Phosphatase Ammonia < 10.0 L Total Creatine Kinase Troponin I Total Protein Albumin Lipase Specimen Hemolysis Hep Bs Antigen Hep Bs Antibody Hep Bs Antibody, Quant 09/26/18 09/26/18 09/26/18 06:14 06:14 06:14 WBC 12.86 H RBC 2.98 L Hgb 9.1 L POC Hgb Hct 27.4 L POC Hct MCV 91.9 MCH 30.5 MCHC 33.2 RDW Std Deviation 54.6 H RDW Coeff of Leo 16.4 H Plt Count 246 MPV 10.7 H Immature Gran % (Auto) 0.2 Neut % (Auto) 86.5 Lymph % (Auto) 4.4 Hamlin % (Auto) 8.8 Eos % (Auto) 0.0 Baso % (Auto) 0.1 Immature Gran # (Auto) 0.03 H Neut # (Auto) 11.12 H Lymph # (Auto) 0.57 L Hamlin # (Auto) 1.13 H Eos # (Auto) 0.00 Baso # (Auto) 0.01 PT Cancelled INR Cancelled APTT Cancelled PTT Ratio Cancelled POC Sodium Sodium 135 L POC Potassium Potassium 4.9 POC Chloride Chloride 95 L Carbon Dioxide 28 POC Total CO2 Anion Gap 11.0 POC Anion Gap POC BUN BUN 39 H Creatinine 7.52 H* POC Creatinine Est Cr Clr Drug Dosing Not Reportable Est GFR ( Amer) 7.7 Est GFR (Non-Af Amer) 6.6 BUN/Creatinine Ratio 5.2 L Glucose 174 H POC Glucose POC Glucose (other) Lactate Calcium 11.4 H POC Ioniz Calcium Danny Magnesium 2.5 H Total Bilirubin 0.6 Direct Bilirubin AST 29 ALT 26 Alkaline Phosphatase 80 Ammonia Total Creatine Kinase 78 Troponin I 1.600 H* Total Protein 8.3 H Albumin 3.7 Lipase 58 L Specimen Hemolysis Hep Bs Antigen Hep Bs Antibody Hep Bs Antibody, Quant 09/26/18 09/26/18 09/26/18 06:14 07:08 09:27 WBC RBC Hgb POC Hgb Hct POC Hct MCV MCH MCHC RDW Std Deviation RDW Coeff of Leo Plt Count MPV Immature Gran % (Auto) Neut % (Auto) Lymph % (Auto) Hamlin % (Auto) Eos % (Auto) Baso % (Auto) Immature Gran # (Auto) Neut # (Auto) Lymph # (Auto) Hamlin # (Auto) Eos # (Auto) Baso # (Auto) PT 11.8 INR 1.2 H APTT 31.9 H PTT Ratio 1.2 POC Sodium Sodium POC Potassium Potassium POC Chloride Chloride Carbon Dioxide POC Total CO2 Anion Gap POC Anion Gap POC BUN BUN Creatinine POC Creatinine Est Cr Clr Drug Dosing Est GFR ( Amer) Est GFR (Non-Af Amer) BUN/Creatinine Ratio Glucose POC Glucose 183 H POC Glucose (other) Lactate 2.0 Calcium POC Ioniz Calcium Danny Magnesium Total Bilirubin Direct Bilirubin AST ALT Alkaline Phosphatase Ammonia Total Creatine Kinase Troponin I Total Protein Albumin Lipase Specimen Hemolysis Hep Bs Antigen Hep Bs Antibody Hep Bs Antibody, Quant 09/26/18 10:03 WBC RBC Hgb POC Hgb Hct POC Hct MCV MCH MCHC RDW Std Deviation RDW Coeff of Leo Plt Count MPV Immature Gran % (Auto) Neut % (Auto) Lymph % (Auto) Hamlin % (Auto) Eos % (Auto) Baso % (Auto) Immature Gran # (Auto) Neut # (Auto) Lymph # (Auto) Hamlin # (Auto) Eos # (Auto) Baso # (Auto) PT INR APTT PTT Ratio POC Sodium Sodium POC Potassium Potassium POC Chloride Chloride Carbon Dioxide POC Total CO2 Anion Gap POC Anion Gap POC BUN BUN Creatinine POC Creatinine Est Cr Clr Drug Dosing Est GFR ( Amer) Est GFR (Non-Af Amer) BUN/Creatinine Ratio Glucose POC Glucose POC Glucose (other) Lactate Calcium POC Ioniz Calcium Danny Magnesium Total Bilirubin Direct Bilirubin AST ALT Alkaline Phosphatase Ammonia Total Creatine Kinase Troponin I Total Protein Albumin Lipase Specimen Hemolysis Hep Bs Antigen Pending Hep Bs Antibody Immune Hep Bs Antibody, Quant 22.45 (1) Pulmonary edema Chronicity: acute Qualified Code(s): J81.0 - Acute pulmonary edema
[2018-09-26] MEDS ORDERED: PERFLUTREN LIPID MICROSPHERE (DEFINITY) IV ONE (10:51)
[2018-09-26 10:55] LABS: Hepatitis B Surface Antibody Immune
[2018-09-26] MEDS: AMLODIPINE BESYLATE 5 MG TAB PO SCH ×2 (10:59→21:07)
[2018-09-26 11:06] LABS: Hepatitis B Surface Antigen Neg (Neg)
[2018-09-26] MEDS: INSULIN ASPART 100 UNITS/ML 3 ML PEN SC SCH ×3 (11:16→21:10)
[2018-09-26] MEDS: MULTIVITAMIN TAB PO SCH (11:18)
[2018-09-26] MEDS: CALCIUM ACETATE 667 MG CAP PO SCH (11:18)
--- NOTE | 2018-09-26 12:11 | Cardiology Consultation ---
Date of Consultation September 26, 2018 Assessment & Plan (1) Elevated troponin: Patient with difficult to sort out history which does include chest pain of various types (chest wall pain from a fall, separate chest pain yesterday), elevated troponin without elevated CK, and ECG with some degree of dynamic change. Although an acute thrombotic event is a possibility, the lack of ongoing symptoms, the normal CK, and a nondiagnostic ECG (more ischemic than infarct type findings) are more consistent with demand ischemia than a major infarct. The distinction is important, since his echocardiogram does show extensive wall motion abnormalities of uncertain duration. Suspect that these are not new, but that he developed volume overload and decompensated, causing a supply/demand mismatch and troponin elevation which was transient. Nonetheless, would obtain serial enzymes and repeat ECG to look for any further evolution and was certainly monitor for any recurrent symptoms. (2) Ischemic cardiomyopathy: Patient with no apparent cardiac history but multiple vascular risk factors who now has an apparent ischemic cardiomyopathy. Duration of this is uncertain, as noted above it seems unlikely that this is an acute event. Nonetheless, would manage with initiation of beta-verona/PROSPER-inhibitor, and continuation of aspirin/statin. Agree with reducing nortriptyline dose back to his baseline (doses was recently raised), consider tapering this depending on indication since it has an adrenergic affect which can be detrimental in the context of cardiomyopathy. Further recommendations based upon his clinical course and further assessment as to the likely duration of his cardiomyopathy. Depending on his usual hemodynamics, if there is room for afterload reduction would introduce carvedilol as well. Will start with metoprolol, then consider additional vaso active agents depending upon his hemodynamics (he is just post dialysis, so will not be overly aggressive immediately). (3) Chest pain: See above (4) ESRD (end stage renal disease) on dialysis: Per nephrology (Dr. Jasso). (5) Pulmonary edema: Responded very well to volume unloading with dialysis, no dyspnea at the time of my evaluation. Afterload reduction, low-sodium diet, and ongoing dialysis will all reduce the risk of recurrent pulmonary edema. History of Present Illness Attending Physician: Ilya Llanes MD History of Present Illness 68-year-old man with multiple sclerosis and end-stage renal disease (on home dialysis 5 times a week) with no apparent cardiac history who was admitted this morning after multiple falls and a change in mental status. He had a fall several weeks ago and has had chest wall pain in the precordial region since, but this is steadily improving. Yesterday he noted a different ch est discomfort, also his noted he had difficulty walking and some confusion, nausea, lightheadedness, and coughing. He had difficulty conveying the specifics of his symptoms to me, but noted that he had not had further episodes of the non-chest wall chest pain. I spoke with him while he was undergoing dialysis, at that time he had no chest discomfort, dyspnea, lightheadedness, or other complaints. Allergies Allergy/AdvReac Type Severity Reaction Status Date / Time No Known Allergies Allergy Unknown Verified 09/26/18 06:16 Home Medications Home Medications Medication Instructions Recorded Confirmed Type amlodipine 2.5 mg PO BID 09/13/18 09/26/18 History aspirin [Aspir-81] 81 mg PO 09/13/18 09/26/18 History calcium acetate 667 mg PO 6XD 09/13/18 09/26/18 History dutasteride 0.5 mg PO QA 09/13/18 09/26/18 History insulin glargine [Lantus U-100 60 unit SUBCUT QA 09/13/18 09/26/18 History Insulin] lidocaine-prilocaine 1 applic TOPICAL DIRECTED PRN 09/13/18 09/26/18 History meclizine 25 mg PO DIRECTED PRN 09/13/18 09/26/18 History multivitamin 1 tab PO QA 09/13/18 09/26/18 History nortriptyline 50 mg PO 09/13/18 09/26/18 History rosuvastatin 10 mg PO 09/13/18 09/26/18 History Patient History Medical History Hypoglycemia (Acute) Hypertension (Acute) Syncope (Acute) CHI (closed head injury) (Acute) CKD (chronic kidney disease) (Acute) Diabetes (Chronic) Proteinuria (Resolved) Multiple sclerosis (Chronic) Hypertension (Chronic) BPH (benign prostatic hyperplasia) (Chronic) Abnormal LFTs (liver function tests) (Chronic) Renal failure (ARF), acute on chronic (Chronic) Cervical spondylosis with myelopathy Concussion and edema of cervical spinal cord, initial encounter ESRD (end stage renal disease) on dialysis Surgical History Status post colostomy (Chronic) Family History Mother Multiple sclerosis Social History Preferred Language: Lao Communication Ability: Effective Circle Edger Required: No Beliefs That Will Affect Care: None marital status: Current Living Situation: Spouse current occupational status: retired Other Information That Helps Us Care for You: No Feels Safe at Home: Yes Safety Concerns: Feels Safe At This Time Smoking Status: Former smoker Do You Dip or Chew Tobacco: No Second Hand Exposure: No Tobacco Cessation Education Requested by Patient: No Hx Alcohol Use: No Hx Substance Use: No Review of Systems Review of Systems: See HPI. Constitutional: no fever and no chills Respiratory: as per Subjective / HPI Cardiovascular: as per Subjective / HPI Neurologic: no localized weakness Physical Exam Physical Exam: No distress. Skin: No unusual lesions or ecchymosis. HEENT: Unremarkable. Neck: Jugular venous pulse just above at the clavicle at 90, no carotid bruits. Lungs: Mildly decreased breath sounds but generally clear. No wheezing or crackles. Cardiac: Regular rhythm with normal S1 and S2. No murmur or gallop. Abdomen: Benign. Extremities: Nontender without edema. Intact peripheral pulses. Neurologic: Bradykinetic affect, mildly confused initially (I had awaken him from sleeping), more appropriate later, grossly nonfocal. Results & Data Vital Signs (Past 12 Hours) Vital Signs Temp Pulse Pulse Resp BP BP Pulse Ox 09/26/18 10:55 36.8 C 101 H 19 147/54 H 95 09/26/18 10:06 36.8 C 101 H 20 147/54 H 95 09/26/18 09:04 100 H 20 133/75 96 09/26/18 07:34 106 H 20 135/74 96 09/26/18 06:30 109 H 22 141/79 H 99 09/26/18 06:15 110 H 26 H 145/80 H 99 09/26/18 05:50 86 L 09/26/18 05:38 36.9 C 110 H 19 138/74 88 L Laboratory Results Laboratory Tests 09/26/18 09/26/18 06:14 06:14 WBC 12.86 H Hgb 9.1 L Plt Count 246 BUN 39 H Creatinine 7.52 H* Total Creatine Kinase 78 Troponin I 1.600 H* Diagnostic Findings ECG showed sinus tachycardia 110 cm, right bundle-branch block left anterior fascicular block, [address] depression. Compared with 09/13/2018 ECG, heart rate increased by 15 ppm, ST depression is new. Chest x-ray 09/26/2018 showed developing pulmonary edema/CHF. Echocardiogram 09/26/2017 showed moderate to severely reduced LV systolic function (EF 25-30%) with moderate global hypokinesis of left ventricle and mid to distal inferior and extensive anteroapical akinesis. Moderate mitral regurgitation with moderately dilated left atrium. (1) Pulmonary edema Chronicity: acute Qualified Code(s): J81.0 - Acute pulmonary edema
[2018-09-26] MEDS: HEPARIN SOD (PORCINE) 1000 UNIT/ML 10 ML VIAL IV SCH ×3 (12:40→14:51)
--- NOTE | 2018-09-26 13:21 | History & Physical Report ---
Date of Service September 26, 2018 Assessment & Plan (1) Pulmonary edema: CXR on 09/26 showed pulmonary edema. Likely not CHF, but more likely from his ESRD and inability to produce enough urine. However, per , baseline weight is 84 kg, and he is down to 79 kg. - HD per nephrology - Monitor respiratory status - Lasix per nephrology (2) ESRD (end stage renal disease) on dialysis: From DM. - Usually runs 5x/week with short runs at home. - HD per nephrology - Hold Ca acetate for high calcium (3) Elevated troponin: Troponin was 1.6 on admission. EKG with mild ST depression from priors. Some chest pain overnight, but none during my interview with the patient. - Trend troponins and EKGs - Continue ASA - Cardiology consulted - Hold heparin gtt at this time - Low concern for an acute thrombotic event - No related to troponins, but heard a rub on exam on admission - Echo ordered (4) Hypertension: BP has been within desired limits so far this admission. - Continue home BP meds: amlodipine (5) Diabetes: No A1c in chart. - Lowered home Lantus from 60 units daily to 40 units daily - Sliding scale insulin (6) Multiple sclerosis: On Rebif therapy per outpatient nephrology notes. No neurology notes in our system. - No current inpatient needs (7) BPH (benign prostatic hyperplasia): No LUTS. - Continue dutasteride (8) DVT prophylaxis: SCDs - Low DVT risk per admission calculator History of Present Illness Primary Care Provider: Elyse Smith 68yo M w/ hx of DM, ESRD who presents with multiple symptoms. Per patient and , he had a fall ~2 1/2 weeks ago. He reports continued pain in the rib/chest region since this fall. On Wednesday, morning, he had his usual course of HD at home ( runs the machine) of about 2 hours. Afterward, his describes him as being "punky." She reports he was tired, confused, and had more ambulatory dysfunction than usual. He slept most of the day, and only awoke for meals and to get to bed. When awake, he was coughing, unable to stand, and lightheaded and nauseated. His appetite has been low, and he hasn't been eating or drinking well for some time. Additionally, Dr. Poe increased his nortriptyline dosage on to 50mg QHS (from 25mg). Overnight, he became short of breath and reported chest pain to his . He required assistance getting into a recliner which was where he slept. Sometime overnight, he tried to get up while his slept and had another fall. He reports a dry cough x several days. Allergies Allergy/AdvReac Type Severity Reaction Status Date / Time No Known Allergies Allergy Unknown Verified 09/26/18 06:16 Home Medications Home Medications Medication Instructions Recorded Confirmed Type amlodipine 2.5 mg PO BID 09/13/18 09/26/18 History aspirin [Aspir-81] 81 mg PO HS 09/13/18 09/26/18 History calcium acetate 667 mg PO 6XD 09/13/18 09/26/18 History dutasteride 0.5 mg PO QAM 09/13/18 09/26/18 History insulin glargine [Lantus U-100 60 unit SUBCUT QA 09/13/18 09/26/18 History Insulin] lidocaine-prilocaine 1 applic TOPICAL DIRECTED PRN 09/13/18 09/26/18 History meclizine 25 mg PO DIRECTED PRN 09/13/18 09/26/18 History multivitamin 1 tab PO QAM 09/13/18 09/26/18 History nortriptyline 50 mg PO HS 09/13/18 09/26/18 History rosuvastatin 10 mg PO HS 09/13/18 09/26/18 History Past Med/Surg History Medical History Hypoglycemia (Acute) Hypertension (Acute) Syncope (Acute) CHI (closed head injury) (Acute) CKD (chronic kidney disease) (Acute) Diabetes (Chronic) Proteinuria (Resolved) Multiple sclerosis (Chronic) Hypertension (Chronic) BPH (benign prostatic hyperplasia) (Chronic) Abnormal LFTs (liver function tests) (Chronic) Renal failure (ARF), acute on chronic (Chronic) Cervical spondylosis with myelopathy Concussion and edema of cervical spinal cord, initial encounter ESRD (end stage renal disease) on dialysis Surgical History Status post colostomy (Chronic) Family History Mother Multiple sclerosis Social History Preferred Language: [place]an Communication Ability: Effective Rabbit Fancier Required: No Beliefs That Will Affect Care: None marital status: Current Living Situation: Spouse current occupational status: retired Other Information That Helps Us Care for You: No Feels Safe at Home: Yes Safety Concerns: Feels Safe At This Time Smoking Status: Former smoker Do You Dip or Chew Tobacco: No Second Hand Exposure: No Tobacco Cessation Education Requested by Patient: No Hx Alcohol Use: No Hx Substance Use: No Review of Systems Review of Systems: All systems reviewed & are unremarkable except as noted in HPI & below Constitutional: no fever, no chills and no sweats Eyes: no diplopia Ear, Nose, Mouth, Throat: no ear trauma, no nasal discharge and no dental pain Respiratory: + cough and + dyspnea; no chest congestion Cardiovascular: + chest pain, + radiating jaw, neck or arm pain, + dyspnea and + dyspnea on exertion; no palpitations and no syncope Gastrointestinal: no abdominal pain, no belching, no constipation, no diarrhea/loose stools, no blood in stools and no melena Musculoskeletal: no back pain, no joint pain and no muscle weakness Integumentary: no rash, no skin ulcer and no erythema Neurologic: no generalized weakness, no loss of sensation, no numbness and no paresthesia Psychiatric: no depression and no anxiety Endocrine: no fatigue, no polydipsia and no polyphagia Physical Exam Constitutional: WD/WN, vitals as above + acute distress and + lethargic Eyes: EOM intact bilaterally; no conjunctival abnormality ENMT: external ear and nose normal, oropharynx normal Neck: trachea midline, no thyromegaly normal visual inspection Respiratory: normal respiratory effort, lungs clear to auscultation no respiratory distress Cardiovascular: Rate/Rhythm: regular rhythm and + tachycardic Heart Sounds: + cardiac rub Vessels: no JVD Extremities: + AV fistula (LUE); no edema Gastrointestinal (Abdomen): Inspection/Auscultation: abdomen normal to inspection (Stoma) and normal bowel sounds; abdomen not distended Musculoskeletal: no cyanosis or clubbing, extremities motor strength 5/5 Skin: no rashes, warm and dry Neurologic: moves all extremities and awake Psychiatric: Orientation: alert, oriented to person and cooperative Results & Data Vital Signs (Past 12 Hours) Vital Signs Temp Pulse Pulse Resp BP BP Pulse Ox 09/26/18 11:46 98 H 131/72 09/26/18 11:29 36.4 C L 97 H 09/26/18 10:55 36.8 C 101 H 19 147/54 H 95 09/26/18 10:06 36.8 C 101 H 20 147/54 H 95 09/26/18 09:04 100 H 20 133/75 96 09/26/18 07:34 106 H 20 135/74 96 09/26/18 06:30 109 H 22 141/79 H 99 09/26/18 06:15 110 H 26 H 145/80 H 99 09/26/18 05:50 86 L 09/26/18 05:38 36.9 C 110 H 19 138/74 88 L (1) Pulmonary edema Chronicity: acute Qualified Code(s): J81.0 - Acute pulmonary edema (2) Hypertension Hypertension type: secondary to other renal disorders Qualified Code(s): I15.1 - Hypertension secondary to other renal disorders; N28.89 - Other specified disorders of kidney and ureter
[2018-09-26] MEDS: DUTASTERIDE SCH ×2 (16:31→23:47)
[2018-09-26] MEDS: ROSUVASTATIN CALCIUM 10 MG TAB PO SCH (21:07)
[2018-09-26] MEDS: ASPIRIN 81 MG ECTAB PO SCH (21:07)
[2018-09-26] MEDS: NORTRIPTYLINE HCL 25 MG CAP PO SCH (21:08)
[2018-09-26] MEDS: METOPROLOL TARTRATE 25 MG TAB PO SCH (21:19)
--- NOTE | 2018-09-27 02:41 | Emergency Department Note ---
Entered by Aysha Mcdaniel acting as a scribe for ED Provider Note Name: Naveen Bravo Age: 68 Arrives Via: Triage Informant: Patient and Patient's CC: Chest Pain HPI: The patient is a 68 year old male who presents to the ED with complaints of persistent chest pain starting last night. The patient states that the pain is in the left side of his chest and radiates into his arm. He states that it has made him short of breath. He notes that his shortness of breath is worse when lying flat. He states that he came to the ED this morning because he felt weak and his legs gave out. He states that because of this, he fell. His notes that the patient has been slightly more confused than normal. She states that when this started last night, his BSG was 163 and his blood pressure was 175/90. She reports that about 4 hours ago he started dry heaving. The patient complains of neck soreness, loss of appetite, and a throbbing headache. The patients complains of the patients color being off. She notes that he had a Naproxen 3 hours ago for generalized chronic body aches. She notes that he is a dialysis patient that receives at home heme dialysis 5 times a week. The patient denies a history of blood clots, use of blood thinners, difficulty seeing, urinary burning, changes in fluid taken off, heamtochezia, melena, loss of consciousness, slurred speech, swelling in hands/feet, fever, change in diet, and missing dialysis. ROS: See above HPI for pertinent positives & negatives. A total of 10 systems reviewed and were otherwise negative. Past Medical History: ESRD, Diabetes, Multiple Sclerosis, Proteinuria, HTN, BPH, Abnormal LFTs, ARF, Cervical Spondylosis with Myelopathy. Past Surgical History: Colostomy. Family History: Non-Contributory. Social History: The patient is and live with his spouse. He is retired. Home Medications: Amlodipine, Aspirin, Calcium Acetate, Dutasteride, Insulin Glargine, Lidocaine-Prilocaine, Meclizine, Multivitamin, Nortriptyline, Rosuvastatin. Allergies None Physical: Vitals: Temperature: 36.9 C Orally, Pulse Rate: 100, Respiratory Rate: 19, Blood Pressure: 139/74, Mean Blood Pressure: 95, Pulse Ox: 88% on Room Air Exam: GENERAL: Patient is unwell appearing. EYES: No scleral icterus, unremarkable pupils. ENT: Mucous membranes moist, no nasal congestion. NECK: No masses appreciated, no meningismus, trachea is midline. RESPIRATORY: Decreased breath sounds throughout with crackles. Mildly dyspneic. No wheeze, no rhonchi. CARDIOVASCULAR: Tachycardic rate and regular rhythm. No murmurs, rubs, gallops appreciated. GASTROINTESTINAL: Abdomen soft, non-tender, no peritonitis. Bowel sounds positive. No masses appreciated. Ostomy in left lower abdomen. BACK: No midline tenderness, no CVA tenderness EXTREMITIES: Normal motion all extremities, no cyanosis, trace bilateral edema t o the lower legs. NEUROLOGIC: Alert and oriented, no acute motor or sensory deficits, no focal weakness, cranial nerves grossly intact. SKIN: Jaundice appearing. No rash, no diaphoresis. ED Course: Prior Medical Record, Triage/Nursing Notes, Medications, Allergies reviewed by Me Vital Signs: reviewed and remarkable for hypoxia Labs: Reviewed and remarkable for elevated Cr, + trop, mild leukocytosis Interventions: NC Oxygen, Saline Lock Imaging: X ray results are stated below per my interpretation: Chest: 1 view: Pulmonary Edema with bilateral small effusions, no pneumothorax. New from previous CXR EKG: The EKG was reviewed and interpreted by me. Indication: weakness. Sinus tachycardia at a rate of 110. Bifasicular block noted. Mild lateral ST depressions. Overall morphology is similar to that on 09/13/2018 with mild deepening of ST segements. Consults: 0643: I discussed the patient's case with Dr. Jasso- Nephrology. He advises holding the Lasix and admitting to the hospitalist. They will plan for dialysis this morning. 0715: I discussed the patient's case with Dr. Llanes -[facility] [place] Hospitalist. He will evaluate the patient for further management. Reassessments/Times: 0543: The patient was evaluated in room B3B. A complete history and physical exam was performed. 0601: I reevaluated the patient and he is feeling better on the oxygen. His color is improving and he is breathing more comfortably. Nursing is still at tempting to get an IV. 0609: I reevaluated the patient and they were able to get an IV in his hand. They are obtaining blood work now. 0630: I reevaluated the patient and he is feeling better on oxygen. I discussed his test results and the treatment plan with him. He verbally agrees and understands. 0643: I discussed the patient's case with Dr. Jasso- Nephrology. He advises holding the Lasix and admitting to the hospitalist. They will plan for dialysis this morning. 0715: I discussed the patient's case with Dr. Llanes -[facility] [place] Hospitalist. He will evaluate the patient for further management. Blood pressure: Normal- No referral necessary. Disposition: Hospitalization Differentials: Differential Diagnosis includes but is not limited to dehydration, stroke, anemia, hypoglycemia, hyponatremia, hypernatremia, urinary tract infection, pneumonia, bronchitis, sepsis, gastroenteritis, additional abdominal pathology, metabolic abnormalities and infections. Medical Decision Makin yr old home hemodialysis patient arrives in acute respiratory distress with hypoxia. Vastly improved with NC O2. He is in pulmonary edema by exam and cxr. Rest of exam without significant fluid overload though. Labs with elevated Cr consistent with need for dialysis today. He has mild hyperK without significant EKG issues from it. EKG with lateral ST depressions likely hypoxia related. Trop elevated though seems likely this is more related to renal failure than ACS at this time given resolution of pains with NC O2. Seems unlikely PE given the heart failure findings but would avoid CTA contrast at this time given fact he still has some urinary output. Hold on Lasix as well given history. Reviewed findings with Nephro and Hospitalist and he will come in for further management. Impression: Pulmonary edema, Chronic kidney failure Gilberto Adrian MD The scribe's documentation has been prepared under my direction and personally reviewed by me in its entirety. I confirm that the note above accurately reflects all work, treatment, procedures, and medical decision making performed by me. Impression & Plan Pulmonary edema, Chronic kidney failure Past Med/Surg History Medical History Hypoglycemia (Acute) Hypertension (Acute) Syncope (Acute) CHI (closed head injury) (Acute) CKD (chronic kidney disease) (Acute) Diabetes (Chronic) Proteinuria (Resolved) Multiple sclerosis (Chronic) Hypertension (Chronic) BPH (benign prostatic hyperplasia) (Chronic) Abnormal LFTs (liver function tests) (Chronic) Renal failure (ARF), acute on chronic (Chronic) Cervical spondylosis with myelopathy Concussion and edema of cervical spinal cord, initial encounter ESRD (end stage renal disease) on dialysis Surgical History Status post colostomy (Chronic) Family History Mother Multiple sclerosis Social History Preferred Language: Kazakh Communication Ability: Effective [employer] Required: No Beliefs That Will Affect Care: None marital status: Current Living Situation: Spouse current occupational status: retired Other Information That Helps Us Care for You: No Feels Safe at Home: Yes Safety Concerns: Feels Safe At This Time Smoking Status: Former smoker Do You Dip or Chew Tobacco: No Second Hand Exposure: No Tobacco Cessation Education Requested by Patient: No Hx Alcohol Use: No Hx Substance Use: No Results & Data Vital Signs Vital Signs - 24 hr 09/26/18 05:38 09/26/18 05:50 09/26/18 06:15 Temperature 36.9 C Temperature Source Oral Sepsis Recent Fever Within 48 Hours No Sepsis New/Unexplained Change in Mental Status No Sepsis Action Taken by Nursing No Action Required Pulse Rate 110 H 110 H Pulse Rate [Right] Pulse Rate from SpO2 Sensor 110 H Respiratory Rate 19 26 H Respiratory Effort / Characteristics Respiratory Depth Normal Respiratory Pattern Blood Pressure 138/74 145/80 H Blood Pressure [Right Arm] Blood Pressure Mean 95 101 Blood Pressure Mean [Right Arm] Pulse Oximetry 88 L 86 L 99 Oxygen Delivery Method Room Air Nasal Cannula Nasal Cannula Oxygen Flow Rate 0 2 09/26/18 06:30 09/26/18 07:34 09/26/18 07:48 Temperature Temperature Source Sepsis Recent Fever Within 48 Hours Sepsis New/Unexplained Change in Mental Status Sepsis Action Taken by Nursing Pulse Rate 109 H Pulse Rate [Right] 106 H Pulse Rate from SpO2 Sensor 111 H Respiratory Rate 22 20 Respiratory Effort / Characteristics Non-Labored Non-Labored Spontaneous SOB on Exertion Respiratory Depth Normal Normal Respiratory Pattern Regular Blood Pressure 141/79 H Blood Pressure [Right Arm] 135/74 Blood Pressure Mean 99 Blood Pressure Mean [Right Arm] 94 Pulse Oximetry 99 96 Oxygen Delivery Method Nasal Cannula Nasal Cannula Nasal Cannula Oxygen Flow Rate 2 2 2 Home Medications Current Medication List: was personally reviewed by me Laboratory Data Attestation: I reviewed the patient's lab results. Result diagrams: 09/26/18 06:14 09/26/18 06:14 Lab Results 09/26/18 09/26/18 09/26/18 Range/Units 05:47 06:12 06:14 WBC (4.8-10.8) K/uL RBC (4.7-6.1) M/uL Hgb (14.0-18.0) g/dL POC Hgb 9.5 L (14.0-18.0) g/dl Hct (42-52) % POC Hct 28 L (42-52) % MCV (80-100) fL MCH (25-34) pg MCHC (32-36) g/dL RDW Std Deviation (36.4-46.3) fL RDW Coeff of Leo (11.5-14.5) % Plt Count (130-400) K/uL MPV (7.4-10.4) fL Immature Gran % (Auto) % Neut % (Auto) % Lymph % (Auto) % [place] % (Auto) % Eos % (Auto) % Baso % (Auto) % Immature Gran # (Auto) (0.00-0.02) K/uL Neut # (Auto) (1.4-6.5) K/uL Lymph # (Auto) (1.2-3.4) K/uL [place] # (Auto) (0.11-0.59) K/uL Eos # (Auto) (0-0.5) K/uL Baso # (Auto) (0-0.2) K/uL PT INR APTT PTT Ratio POC Sodium 134 L (135-144) mEq/L Sodium (136-145) mmol/L POC Potassium 5.0 (3.3-5.0) mEq/L Potassium (3.5-5.1) mmol/L POC Chloride 93 L (101-112) mEq/L Chloride (98-107) mmol/L Carbon Dioxide (21-32) mmol/L POC Total CO2 30 (24-31) mEq/l Anion Gap (3-11) POC Anion Gap 17.0 (16-25) mmol/L POC BUN 48 H (7-18) mg/dl BUN (7-18) mg/dl Creatinine (0.6-1.4) mg/dl POC Creatinine 7.9 H* (0.6-1.3) mg/dl Est Cr Clr Drug Dosing Est GFR ( Amer) Est GFR (Non-Af Amer) BUN/Creatinine Ratio (10-20) Glucose (70-99) mg/dl POC Glucose 191 H (70-99) POC Glucose (other) 178 H (70-99) mg/dl Lactate (0.4-2.0) mmol/L Calcium (8.5-10.1) mg/dl POC Ioniz Calcium Danny 1.26 (1.12-1.32) mmol/l Magnesium (1.8-2.4) mg/dl Total Bilirubin (0.2-1) mg/dl Direct Bilirubin (0-0.2) mg/dl AST (15-37) U/L ALT (12-78) U/L Alkaline Phosphatase (45-117) U/L Ammonia < 10.0 L (11-32) umol/L Total Creatine Kinase (39-308) U/L Troponin I (0-0.045) ng/ml Total Protein (6.4-8.2) gm/dl Albumin (3.4-5.0) gm/dl Lipase (73-393) U/L Specimen Hemolysis 09/26/18 09/26/18 09/26/18 Range/Units 06:14 06:14 06:14 WBC 12.86 H (4.8-10.8) K/uL RBC 2.98 L (4.7-6.1) M/uL Hgb 9.1 L (14.0-18.0) g/dL POC Hgb (14.0-18.0) g/dl Hct 27.4 L (42-52) % POC Hct (42-52) % MCV 91.9 (80-100) fL MCH 30.5 (25-34) pg MCHC 33.2 (32-36) g/dL RDW Std Deviation 54.6 H (36.4-46.3) fL RDW Coeff of Leo 16.4 H (11.5-14.5) % Plt Count 246 (130-400) K/uL MPV 10.7 H (7.4-10.4) fL Immature Gran % (Auto) 0.2 % Neut % (Auto) 86.5 % Lymph % (Auto) 4.4 % [place] % (Auto) 8.8 % Eos % (Auto) 0.0 % Baso % (Auto) 0.1 % Immature Gran # (Auto) 0.03 H (0.00-0.02) K/uL Neut # (Auto) 11.12 H (1.4-6.5) K/uL Lymph # (Auto) 0.57 L (1.2-3.4) K/uL [place] # (Auto) 1.13 H (0.11-0.59) K/uL Eos # (Auto) 0.00 (0-0.5) K/uL Baso # (Auto) 0.01 (0-0.2) K/uL PT Cancelled INR Cancelled APTT Cancelled PTT Ratio Cancelled POC Sodium (135-144) mEq/L Sodium 135 L (136-145) mmol/L POC Potassium (3.3-5.0) mEq/L Potassium 4.9 (3.5-5.1) mmol/L POC Chloride (101-112) mEq/L Chloride 95 L (98-107) mmol/L Carbon Dioxide 28 (21-32) mmol/L POC Total CO2 (24-31) mEq/l Anion Gap 11.0 (3-11) POC Anion Gap (16-25) mmol/L POC BUN (7-18) mg/dl BUN 39 H (7-18) mg/dl Creatinine 7.52 H* (0.6-1.4) mg/dl POC Creatinine (0.6-1.3) mg/dl Est Cr Clr Drug Dosing Not Reportable Est GFR ( Amer) 7.7 Est GFR (Non-Af Amer) 6.6 BUN/Creatinine Ratio 5.2 L (10-20) Glucose 174 H (70-99) mg/dl POC Glucose (70-99) POC Glucose (other) (70-99) mg/dl Lactate (0.4-2.0) mmol/L Calcium 11.4 H (8.5-10.1) mg/dl POC Ioniz Calcium Danny (1.12-1.32) mmol/l Magnesium 2.5 H (1.8-2.4) mg/dl Total Bilirubin 0.6 (0.2-1) mg/dl Direct Bilirubin (0-0.2) mg/dl AST 29 (15-37) U/L ALT 26 (12-78) U/L Alkaline Phosphatase 80 (45-117) U/L Ammonia (11-32) umol/L Total Creatine Kinase 78 (39-308) U/L Troponin I 1.600 H* (0-0.045) ng/ml Total Protein 8.3 H (6.4-8.2) gm/dl Albumin 3.7 (3.4-5.0) gm/dl Lipase 58 L (73-393) U/L Specimen Hemolysis 09/26/18 09/26/18 Range/Units 06:14 07:08 WBC (4.8-10.8) K/uL RBC (4.7-6.1) M/uL Hgb (14.0-18.0) g/dL POC Hgb (14.0-18.0) g/dl Hct (42-52) % POC Hct (42-52) % MCV (80-100) fL MCH (25-34) pg MCHC (32-36) g/dL RDW Std Deviation (36.4-46.3) fL RDW Coeff of Leo (11.5-14.5) % Plt Count (130-400) K/uL MPV (7.4-10.4) fL Immature Gran % (Auto) % Neut % (Auto) % Lymph % (Auto) % [place] % (Auto) % Eos % (Auto) % Baso % (Auto) % Immature Gran # (Auto) (0.00-0.02) K/uL Neut # (Auto) (1.4-6.5) K/uL Lymph # (Auto) (1.2-3.4) K/uL [place] # (Auto) (0.11-0.59) K/uL Eos # (Auto) (0-0.5) K/uL Baso # (Auto) (0-0.2) K/uL PT 11.8 INR 1.2 H APTT 31.9 H PTT Ratio 1.2 POC Sodium (135-144) mEq/L Sodium (136-145) mmol/L POC Potassium (3.3-5.0) mEq/L Potassium (3.5-5.1) mmol/L POC Chloride (101-112) mEq/L Chloride (98-107) mmol/L Carbon Dioxide (21-32) mmol/L POC Total CO2 (24-31) mEq/l Anion Gap (3-11) POC Anion Gap (16-25) mmol/L POC BUN (7-18) mg/dl BUN (7-18) mg/dl Creatinine (0.6-1.4) mg/dl POC Creatinine (0.6-1.3) mg/dl Est Cr Clr Drug Dosing Est GFR ( Amer) Est GFR (Non-Af Amer) BUN/Creatinine Ratio (10-20) Glucose (70-99) mg/dl POC Glucose (70-99) POC Glucose (other) (70-99) mg/dl Lactate 2.0 (0.4-2.0) mmol/L Calcium (8.5-10.1) mg/dl POC Ioniz Calcium Danny (1.12-1.32) mmol/l Magnesium (1.8-2.4) mg/dl Total Bilirubin (0.2-1) mg/dl Direct Bilirubin (0-0.2) mg/dl AST (15-37) U/L ALT (12-78) U/L Alkaline Phosphatase (45-117) U/L Ammonia (11-32) umol/L Total Creatine Kinase (39-308) U/L Troponin I (0-0.045) ng/ml Total Protein (6.4-8.2) gm/dl Albumin (3.4-5.0) gm/dl Lipase (73-393) U/L Specimen Hemolysis Administered Medications Amlodipine Besylate (Norvasc) 2.5 mg PO BID RUSS Stop: 10/26/18 09:50 Last Admin: 09/26/18 21:07 Dose: 2.5 mg Documented by: [id number] Admin: 09/26/18 10:59 Dose: Not Given Documented by: [id number] Aspirin (Ecotrin Ectab) 81 mg PO HS RUSS Stop: 10/26/18 20:59 Last Admin: 09/26/18 21:07 Dose: 81 mg Documented by: [id number] Calcium Acetate (Phoslo) 667 mg PO 6XD RUSS Stop: 10/26/18 09:50 Last Admin: 09/26/18 11:18 Dose: 667 mg Documented by: [id number] Insulin Aspart (Novolog Flexpen) 0 units SC ACHS RUSS Stop: 10/26/18 11:29 Last Admin: 09/26/18 21:10 Dose: 2 units Documented by: [id number] Cosigned by: [id number] Admin: 09/26/18 17:50 Dose: 4 units Documented by: [id number] Cosigned by: [id number] Admin: 09/26/18 11:16 Dose: 1 units Documented by: [id number] Cosigned by: [id number] Metoprolol Tartrate (Lopressor) 12.5 mg PO BID [facility] Stop: 10/26/18 20:59 Last Admin: 09/26/18 21:19 Dose: 12.5 mg Documented by: [id number] Miscellaneous (Order Awaiting Action) 1 ea N/A QS [facility] Stop: 10/26/18 15:59 Last Admin: 09/26/18 23:47 Dose: Not Given Documented by: [id number] Admin: 09/26/18 16:31 Dose: Not Given Documented by: [id number] Multivitamins (Multivitamin Tab) 1 tab PO QAM [facility] Stop: 10/26/18 09:50 Last Admin: 09/26/18 11:18 Dose: 1 tab Documented by: [id number] Nortriptyline HCl (Pamelor) 25 mg PO [facility] Stop: 10/26/18 20:59 Last Admin: 09/26/18 21:08 Dose: 25 mg Documented by: [id number] Rosuvastatin Calcium (Crestor) 10 mg PO HS [facility] Stop: 10/26/18 20:59 Last Admin: 09/26/18 21:07 Dose: 10 mg Documented by: [id number] Discontinued Medications Heparin Sodium (Porcine) (Heparin Iv Bolus) 1,000 units IV Q1H [facility] Stop: 09/26/18 11:46 Last Admin: 09/26/18 14:51 Dose: Not Given Documented by: [id number] Admin: 09/26/18 13:40 Dose: Not Given Documented by: [id number] Admin: 09/26/18 12:40 Dose: Not Given Documented by: [id number] Heparin Sodium (Porcine) (Heparin Iv Bolus) 2,000 units IV ONE ONE Stop: 09/26/18 09:46 Last Admin: 09/26/18 11:46 Dose: Not Given Documented by: [id number] Insulin Glargine (Lantus Solostar Pen) 40 units SQ QAM [facility] Stop: 10/26/18 09:50 Last Admin: 09/26/18 11:08 Dose: 40 units Documented by: [id number] Cosigned by: [id number] Perflutren Lipid Microsphere (Definity) 2 ml IV ONCE ONE Stop: 09/26/18 10:52 Last Admin: 09/26/18 10:51 Dose: 2 ml Documented by: [id number] ECG Data Attestation: I personally reviewed and interpreted this ECG as follows: Indication: weakness Rate (beats per minute): 110 Rhythm: sinus tachycardia Findings: + other (bifasicular block) and + ST depression (mild lateral) Comparison ECG Date: from (09/13/2018) Change: the following changes noted (overall morphology is similar with mild deepening of ST segments) Blood Pressure Blood Pressure Findings: Normal blood pressure Blood Pressure Disposition: did not require urgent referral Discharge Plan Visit Data *Final* Discharge Date/Time: 09/26/18 09:31 Chief Complaint: Chest Pain Stated Complaint: CHEST PAIN,SHORTNESS OF BREATH ED Provider: Gilberto Adrian Discharge Problem: Pulmonary edema, Chronic kidney failure Patient Disposition: Admitted As Inpatient Discharge Instructions Interventions: ED Discharge Assessment Last Done: 09/26/18 09:31 Discharge Problem: Pulmonary edema Qualifiers: Chronicity: acute Qualified Code(s): J81.0 - Acute pulmonary edema Chronic kidney failure Qualifiers: Chronic kidney disease stage: unspecified stage Qualified Code(s): N18.9 - Chronic kidney disease, unspecified The scribe's documentation has been prepared under my direction and personally reviewed by me in its entirety. I confirm that the note above accurately reflects all work, treatment, procedures, and medical decision making performed by me.
[2018-09-27] MEDS ORDERED: HALOPERIDOL LACTATE 5 MG/ML 1 ML VIAL IM STA (05:20)
--- NOTE | 2018-09-27 05:23 | Progress Note ---
Date of Service September 27, 2018 Assessment & Plan (1) Acute delirium: Called regarding agitation. Baseline dementia reported by nursing Plan; - One-time dose of Haldol 0.5 mg IV Results & Data Vital Signs (Past 12 Hours) Vital Signs Temp Pulse Pulse Resp BP BP Pulse Ox 09/27/18 04:31 37.2 C 101 H 21 130/74 130/74 90 09/27/18 04:02 101 H 09/27/18 00:47 36.9 C 98 H 18 123/74 92 09/26/18 23:48 36.8 C 104 H 20 135/73 96 09/26/18 19:53 36.4 C L 101 H 18 122/66 97
[2018-09-27] MEDS: DUTASTERIDE SCH (07:31)
[2018-09-27 07:55] LABS: Hematocrit (blood only) 26.1 % (42-52); Hemoglobin 8.9 g/dL (14.0-18.0); Mean Corpuscular Hgb Conc 34.1 g/dL (32-36); Mean Corpuscular Volume 91.3 fL (80-100); Mean Platelet Volume 10.5 fL (7.4-10.4); Platelet Count 235 K/uL (130-400); RDW Coefficient of Variation 16.7 % (11.5-14.5); RDW Standard Deviation 55.4 fL (36.4-46.3); Red Blood Count 2.86 M/uL (4.7-6.1); White Blood Count 12.35 K/uL (4.8-10.8)
[2018-09-27] MEDS: INSULIN ASPART 100 UNITS/ML 3 ML PEN SC SCH ×4 (08:01→21:27)
[2018-09-27] MEDS: INSULIN GLARGINE SOLOSTAR 100 UNITS/ML 3 ML PEN SQ SCH (08:02)
[2018-09-27] MEDS: AMLODIPINE BESYLATE 5 MG TAB PO SCH ×2 (08:02→21:00)
[2018-09-27] MEDS: MULTIVITAMIN TAB PO SCH (08:03)
[2018-09-27] MEDS: METOPROLOL TARTRATE 25 MG TAB PO SCH ×2 (08:03→21:01)
[2018-09-27] MEDS: CALCIUM ACETATE 667 MG CAP PO SCH (08:03)
[2018-09-27 08:40] LABS: BUN Creatinine Ratio 6.4 (10-20); Calcium 10.4 mg/dl (8.5-10.1); Creatinine Clr Calc Pharmacy 13.3 ml/min; Est GFR (Non-African American) 10.4; Estimated Average Glucose 82 mg/dl; Hemoglobin A1C 4.5 % (4.5-5.6); Magnesium 2.3 mg/dl (1.8-2.4); Phosphorus 3.4 mg/dl (2.5-4.9); Potassium 4.2 mmol/L (3.5-5.1)
[2018-09-27] MEDS ORDERED: SODIUM CHLORIDE 0.9% 1000ML 1,000 ML IV PRN (09:13)
--- NOTE | 2018-09-27 09:33 | Cardiology Progress Note ---
Date of Service September 27, 2018 Subjective Patient is confused this morning. In fact his had to be called at home in order to try to calm him down. This connection was not made but she is here with him at the bedside. He denies any chest pain or chest pressure. His speech is slow and methodical in the way he answers questions and he remain. Denies any chest pain or chest pressure this morning or shortness of breath. His confirms that his chest pain and shortness of breath was all of a sudden. He has a significant worry with his history of multiple sclerosis that he will end up in a longterm one day unable to care for himself. He has an elevated white count here of undetermined etiology. In addition he fell about a week ago he had a CAT scan of his head in the emergency room at that time which did not reveal any any bleeding. His does note that his mental status has continued to decline since then. He seems to be moving all extremities without any focal deficits Results & Data Vital Signs (Past 12 Hours) Vital Signs Temp Pulse Pulse Resp BP BP Pulse Ox 09/27/18 07:31 36.6 C 103 H 18 137/77 90 09/27/18 04:31 37.2 C 101 H 21 130/74 130/74 90 09/27/18 04:02 101 H 09/27/18 00:47 36.9 C 98 H 18 123/74 92 09/26/18 23:48 36.8 C 104 H 20 135/73 96 He is awake alert oriented to person and to the state but had no idea the year nor that he was in the hospital HEENT: Moderately reduced carotid upstrokes no evidence of carotid bruits jugular venous pressure appeared normal Lungs: Clear to auscultation bilaterally no rales rhonchi or wheezing Heart: Regular rate and rhythm no appreciable murmurs rubs or gallops Abdomen: Soft nontender distended positive bowel sounds Extremities: No clubbing cyanosis or edema Psychiatric: As discussed in the HPI (1) Elevated troponin: Possibly demand ischemia versus flash pulmonary edema (2) Ischemic cardiomyopathy: Severe and new as far as an EF of 20 to 25% with regional wall motion abnormalities He is currently on beta-blockers and discussion with Dr. Llanes we will add Entresto low-dose to his medical regimen. He is already on dialysis and that there is any issues of hyperkalemia they can be treated with his dialysis. He will undergo dialysis today in discussion with Dr. Nuñez of nephrology in order to arrange for cardiac catheterization tomorrow. Given the decline in his ejection fraction it is important to do assess his coronary arteries. The challenge will be he is had a clear decline in the last 3 months his mental status is also declining. I do not believe that he is a surgical candidate. With his multiple sclerosis the rehab would be nearly impossible for him. I think his only option would be angioplasty and stenting if he had a tight stenotic lesion. We will plan for cardiac catheterization tomorrow assuming a repeat CT scan of his head is negative for any acute pathology given his worsening mental status changes. He also appears to be tachycardic suggesting some degree of low cardiac output. (3) confusion with change in mental status (4) ESRD (end stage renal disease) on dialysis: Discussed with Dr. Jasso see above (5) Pulmonary edema: Stable Responded very well to volume unloading with dialysis. 6. Multiple sclerosis
--- NOTE | 2018-09-27 09:43 | Nephrology Progress Note ---
Date of Service September 27, 2018 Assessment & Plan (1) ESRD (end stage renal disease) on dialysis: -- Orders for HD today entered into EMR and discussed with dialysis nurse education and development manager -- Buttonhole technique may be employed -- Uf goal 2 L as tolerated -- Furosemide 80 mg to encourage urine output -- Monitor metabolic profile daily -- Document I/O's (2) Pulmonary edema: -- r/o ACS -- Discussed with Dr. Wooten -- Clinical presentation concerning for flash pulmonary edema -- New LV dysfunction -- Diuretics to encourage urine output and additional UF with HD today (3) Hypertension: (4) Hypercalcemia: -- PTH 244 earlier this month -- Improving after holding Ca Acetate (5) Anemia: -- Hgb 10.1 earlier this month -- Tx with micera 150 Q 2 weeks and venofer 200 monthly as outpatient -- Check iron profile with AM labs Subjective Confusion and some agitation noted overnight. No additional chest pain. Breathing comfortably. Tolerated HD well yesterday, net UF 2 L. Plan of care discussed with Dr. Wooten this morning. Review of Systems Review of Systems: All systems reviewed & are unremarkable except as noted in HPI & below Physical Exam Constitutional: well developed; no acute distress Eyes: no scleral abnormality and no corneal abnormality ENMT: Mouth: no oral mucosal abnormality and oral mucous membranes not dry Neck: normal visual inspection and trachea midline Respiratory: no respiratory distress Auscultation: lungs clear to auscultation bilaterally; no rales Cardiovascular: Rate/Rhythm: + tachycardic Heart Sounds: normal S1, normal S2 and + murmur Vessels: + JVD Extremities: no edema Gastrointestinal (Abdomen): Percussion/Palpation: abdomen soft; abdomen nontender Musculoskeletal: Extremities: no cyanosis and no clubbing Skin: normal turgor; no rashes Neurologic: Motor/Sensory: no tremor and no asterixis Psychiatric: Orientation: alert Affect: euthymic affect Results & Data Vital Signs (Past 12 Hours) Vital Signs Temp Pulse Pulse Resp BP BP Pulse Ox 09/27/18 07:31 36.6 C 103 H 18 137/77 90 09/27/18 04:31 37.2 C 101 H 21 130/74 130/74 90 09/27/18 04:02 101 H 09/27/18 00:47 36.9 C 98 H 18 123/74 92 09/26/18 23:48 36.8 C 104 H 20 135/73 96 Laboratory Results Laboratory Results - last 24 hr 09/26/18 09/26/18 09/26/18 10:03 11:08 12:26 WBC RBC Hgb Hct MCV MCH MCHC RDW Std Deviation RDW Coeff of Leo Plt Count MPV Sodium Potassium Chloride Carbon Dioxide Anion Gap BUN Creatinine Est Cr Clr Drug Dosing Est GFR ( Amer) Est GFR (Non-Af Amer) BUN/Creatinine Ratio Glucose POC Glucose 172 H Estimat Average Glucose Hemoglobin A1c Calcium Phosphorus Magnesium Troponin I 1.830 H* Hep Bs Antigen Neg Hep Bs Antibody Immune Hep Bs Antibody, Quant 22.45 09/26/18 09/26/18 09/26/18 16:16 16:35 20:28 WBC RBC Hgb Hct MCV MCH MCHC RDW Std Deviation RDW Coeff of Leo Plt Count MPV Sodium Potassium Chloride Carbon Dioxide Anion Gap BUN Creatinine Est Cr Clr Drug Dosing Est GFR ( Amer) Est GFR (Non-Af Amer) BUN/Creatinine Ratio Glucose POC Glucose 119 H 120 H 200 H Estimat Average Glucose Hemoglobin A1c Calcium Phosphorus Magnesium Troponin I Hep Bs Antigen Hep Bs Antibody Hep Bs Antibody, Quant 09/27/18 09/27/18 09/27/18 07:06 07:38 07:38 WBC 12.35 H RBC 2.86 L Hgb 8.9 L Hct 26.1 L MCV 91.3 MCH 31.1 MCHC 34.1 RDW Std Deviation 55.4 H RDW Coeff of Leo 16.7 H Plt Count 235 MPV 10.5 H Sodium 137 Potassium 4.2 Chloride 98 Carbon Dioxide 28 Anion Gap 11.0 BUN 33 H Creatinine 5.18 H* D Est Cr Clr Drug Dosing 13.3 Est GFR ( Amer) 12.0 Est GFR (Non-Af Amer) 10.4 BUN/Creatinine Ratio 6.4 L Glucose 137 H POC Glucose 142 H Estimat Average Glucose Hemoglobin A1c Calcium 10.4 H Phosphorus 3.4 Magnesium 2.3 Troponin I Hep Bs Antigen Hep Bs Antibody Hep Bs Antibody, Quant 09/27/18 09/27/18 07:38 07:38 WBC RBC Hgb Hct MCV MCH MCHC RDW Std Deviation RDW Coeff of Leo Plt Count MPV Sodium Potassium Chloride Carbon Dioxide Anion Gap BUN Creatinine Est Cr Clr Drug Dosing Est GFR ( Amer) Est GFR (Non-Af Amer) BUN/Creatinine Ratio Glucose POC Glucose Estimat Average Glucose 82 Hemoglobin A1c 4.5 Calcium Phosphorus Magnesium Troponin I 1.610 H* Hep Bs Antigen Hep Bs Antibody Hep Bs Antibody, Quant (1) Pulmonary edema Chronicity: acute Qualified Code(s): J81.0 - Acute pulmonary edema
--- NOTE | 2018-09-27 10:41 | CT Scan Report ---
CT head/brain wo con CLINICAL HISTORY: Acute change in mental status. Possible acute hemorrhage. COMPARISON STUDY: 09/13/2018 TECHNIQUE: Axial CT of the brain is performed from the vertex to the skull base. IV contrast was not administered for this examination. A dose lowering technique was utilized adhering to the principles of ALARA. CT DOSE: 614.27 mGy.cm FINDINGS: No intra or extra-axial mass lesions are visualized. There is no CT evidence of acute cortical infarc tion. There is no evidence of midline shift. There is no acute hemorrhage. No calvarial fractures ar e visualized. There are moderate white matter hypodensities likely on a small vessel basis. There is dense basal ga nglia calcification. There is no evidence of pathologic ventricular dilatation. There is no evidence of acute sinusitis IMPRESSION: No acute intracranial findings Electronically signed by: Rony Urbano M.D. 09/27/2018 10:40 AM
[2018-09-27] MEDS: FUROSEMIDE 80 MG TAB PO SCH (10:58)
--- NOTE | 2018-09-27 11:12 | Hospitalist Progress Note ---
Date of Service September 27, 2018 Assessment & Plan (1) Acute systolic CHF (congestive heart failure): Concern for acute systolic CHF possibly from an asymptomatic CA. Treated with emergent HD on 09/26 with improvement in his symptoms. CXR on 09/26 showed pulmonary edema. Per , baseline weight is 84 kg, and he is down to 79 kg. - Lasix per nephrology - Another short session of HD on 09/27 in preparation for possible C tomorrow - Start Entresto per cardiology (2) ESRD (end stage renal disease) on dialysis: From DM. - Usually runs 5x/week with short runs at home. - HD per nephrology - Hold Ca acetate for high calcium (3) Elevated troponin: Troponin was 1.6 on admission. EKG with mild ST depression from priors. Some chest pain overnight, but none during my interview with the patient and none so far during admission. - Continue ASA - Cardiology consulted - Troponins were 1.6, 1.8, and 1.6, pointing away from an acute thrombotic event. Likely type 2 CA in setting of fluid volume overload and ESRD. (4) Hypertension: BP has been within desired limits so far this admission. - Continue home BP meds: amlodipine (5) Diabetes: No A1c in chart. - Lowered home Lantus from 60 units daily to 40 units daily - Sliding scale insulin (6) Multiple sclerosis: On Rebif therapy per outpatient nephrology notes. No neurology notes in our system. - No current inpatient needs (7) BPH (benign prostatic hyperplasia): No LUTS. - Continue dutasteride (8) DVT prophylaxis: SCDs - Low DVT risk per admission calculator Subjective Some confusion overnight. No major concerns though this morning. Denies chest pain or shortness of breath. Review of Systems Review of Systems: All systems reviewed & are unremarkable except as noted in HPI & below Physical Exam Constitutional: WD/WN, vitals as above + acute distress and + lethargic Eyes: EOM intact bilaterally; no conjunctival abnormality ENMT: external ear and nose normal, oropharynx normal Neck: trachea midline, no thyromegaly normal visual inspection Respiratory: normal respiratory effort, lungs clear to auscultation no respiratory distress Cardiovascular: Rate/Rhythm: regular rhythm and + tachycardic Heart Sounds: + cardiac rub Vessels: no JVD Extremities: + AV fistula (LUE); no edema Gastrointestinal (Abdomen): Inspection/Auscultation: abdomen normal to inspection (Stoma) and normal bowel sounds; abdomen not distended Musculoskeletal: no cyanosis or clubbing, extremities motor strength 5/5 Skin: no rashes, warm and dry Neurologic: moves all extremities and awake Psychiatric: Orientation: alert, oriented to person and cooperative Apperance: + disheveled Results & Data Vital Signs (Past 12 Hours) Vital Signs Temp Pulse Pulse Resp BP BP Pulse Ox 09/27/18 07:31 36.6 C 103 H 18 137/77 90 09/27/18 04:31 37.2 C 101 H 21 130/74 130/74 90 09/27/18 04:02 101 H 09/27/18 00:47 36.9 C 98 H 18 123/74 92 09/26/18 23:48 36.8 C 104 H 20 135/73 96 (1) Hypertension Hypertension type: secondary to other renal disorders Qualified Code(s): I15.1 - Hypertension secondary to other renal disorders; N28.89 - Other specified disorders of kidney and ureter
[2018-09-27] MEDS: SACUBITRIL-VALSARTAN 24-26 MG TAB PO SCH ×2 (11:57→21:00)
[2018-09-27] MEDS ORDERED: LIDOCAINE HCL 5% OINT 30 GM TUBE EXT PRN (13:21)
[2018-09-27] MEDS: NORTRIPTYLINE HCL 25 MG CAP PO SCH (21:00)
[2018-09-27] MEDS: ASPIRIN 81 MG ECTAB PO SCH (21:00)
[2018-09-27] MEDS: ROSUVASTATIN CALCIUM 10 MG TAB PO SCH (21:01)
[2018-09-28 06:09] LABS: Hemoglobin 8.8 g/dL (14.0-18.0); Mean Corpuscular Hgb Conc 32.6 g/dL (32-36); Mean Corpuscular Volume 92.2 fL (80-100); Mean Platelet Volume 10.7 fL (7.4-10.4); Platelet Count 275 K/uL (130-400); RDW Coefficient of Variation 16.8 % (11.5-14.5); RDW Standard Deviation 56.3 fL (36.4-46.3); Red Blood Count 2.93 M/uL (4.7-6.1); White Blood Count 10.12 K/uL (4.8-10.8)
[2018-09-28 06:52] LABS: BUN Creatinine Ratio 6.8 (10-20); Calcium 10.2 mg/dl (8.5-10.1); Creatinine Clr Calc Pharmacy 13.2 ml/min; Est GFR (Non-African American) 10.3; Magnesium 2.3 mg/dl (1.8-2.4); Potassium 3.8 mmol/L (3.5-5.1)
[2018-09-28] MEDS: CALCIUM ACETATE 667 MG CAP PO SCH (07:40)
[2018-09-28] MEDS: METOPROLOL TARTRATE 25 MG TAB PO SCH ×2 (07:40→20:17)
[2018-09-28] MEDS: AMLODIPINE BESYLATE 5 MG TAB PO SCH ×2 (07:40→20:17)
[2018-09-28] MEDS: SACUBITRIL-VALSARTAN 24-26 MG TAB PO SCH ×2 (07:41→20:17)
[2018-09-28] MEDS: MULTIVITAMIN TAB PO SCH (07:41)
[2018-09-28] MEDS: FUROSEMIDE 80 MG TAB PO SCH (07:41)
[2018-09-28] MEDS: DUTASTERIDE 0.5 MG CAPSULE PO SCH (07:41)
[2018-09-28] MEDS: INSULIN ASPART 100 UNITS/ML 3 ML PEN SC SCH ×4 (08:14→21:15)
[2018-09-28] MEDS: INSULIN GLARGINE SOLOSTAR 100 UNITS/ML 3 ML PEN SQ SCH (08:15)
--- NOTE | 2018-09-28 10:01 | Nephrology Progress Note ---
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 Resting comfortably in bed this morning. No additional chest pain. No lightheadedness or dizziness. Denies palpitations. Tolerated HD yesterday without complications. Review of Systems Review of Systems: All systems reviewed & are unremarkable except as noted in HPI & below Physical Exam Constitutional: well developed; no acute distress Eyes: no scleral abnormality and no corneal abnormality ENMT: Mouth: no oral mucosal abnormality and oral mucous membranes not dry Neck: normal visual inspection and trachea midline Respiratory: no respiratory distress Auscultation: lungs clear to auscultation bilaterally; no rales Cardiovascular: Heart Sounds: normal S1, normal S2 and + murmur Extremities: no edema Gastrointestinal (Abdomen): Percussion/Palpation: abdomen soft; abdomen nontender Musculoskeletal: Extremities: no cyanosis and no clubbing Skin: normal turgor; no rashes Neurologic: Motor/Sensory: no tremor and no asterixis Psychiatric: Orientation: alert Affect: euthymic affect Results & Data Vital Signs (Past 12 Hours) Vital Signs Temp Pulse Pulse Resp BP BP Pulse Ox 09/28/18 07:07 36.3 C L 95 H 21 108/69 97 09/28/18 04:20 36.3 C L 84 19 169/94 H 94 09/28/18 00:22 100 H Laboratory Results Laboratory Results - last 24 hr 09/27/18 09/27/18 09/27/18 11:37 16:28 20:32 WBC RBC Hgb Hct MCV MCH MCHC RDW Std Deviation RDW Coeff of Leo Plt Count MPV Sodium Potassium Chloride Carbon Dioxide Anion Gap BUN Creatinine Est Cr Clr Drug Dosing Est GFR ( Amer) Est GFR (Non-Af Amer) BUN/Creatinine Ratio Glucose POC Glucose 144 H 115 H 154 H Calcium Magnesium 09/28/18 09/28/18 09/28/18 05:35 05:35 08:11 WBC 10.12 RBC 2.93 L Hgb 8.8 L Hct 27.0 L MCV 92.2 MCH 30.0 MCHC 32.6 RDW Std Deviation 56.3 H RDW Coeff of Leo 16.8 H Plt Count 275 MPV 10.7 H Sodium 136 Potassium 3.8 Chloride 99 Carbon Dioxide 26 Anion Gap 11.0 BUN 36 H Creatinine 5.20 H* Est Cr Clr Drug Dosing 13.2 Est GFR ( Amer) 12.0 Est GFR (Non-Af Amer) 10.3 BUN/Creatinine Ratio 6.8 L Glucose 113 H POC Glucose 136 H Calcium 10.2 H Magnesium 2.3 (1) Pulmonary edema Chronicity: acute Qualified Code(s): J81.0 - Acute pulmonary edema
[2018-09-28] MEDS ORDERED: NITROGLYCERIN/D5W 100MCG/ML 20ML SYR ONE (10:02)
[2018-09-28] MEDS ORDERED: HEPARIN (PORCINE) 1000 UNIT/ML 10 ML (CATH LAB USE ONLY) ONE ×2 (10:02→11:20)
[2018-09-28] MEDS ORDERED: NiCARDipine HCL INJ 2.5 MG/ML 10 ML AMP ONE (10:02)
[2018-09-28] MEDS ORDERED: fentaNYL citrate 100 MCG/2 ML VIAL ONE (10:03)
[2018-09-28] MEDS ORDERED: MIDAZOLAM HCL 1 MG/ML 2ML VIAL ONE (10:03)
[2018-09-28] MEDS ORDERED: CLOPIDOGREL BISULFATE 300 MG TAB ONE (11:44)
--- NOTE | 2018-09-28 11:53 | Post Anesthesia Assessment ---
Date of Service September 28, 2018 Post Sedation Assessment Vital Signs Temp Pulse Pulse Resp BP BP BP 09/28/18 07:07 36.3 C L 95 H 21 108/69 09/28/18 04:20 36.3 C L 84 19 169/94 H 09/28/18 00:22 100 H 09/27/18 20:32 36.7 C 103 H 20 124/72 09/27/18 19:35 37.2 C 79 19 115/71 09/27/18 16:16 36.3 C L 95 H 20 121/69 09/27/18 15:50 37.0 C 98 H 98 H 123/61 123/61 09/27/18 15:40 98 H 125/51 L 09/27/18 15:20 95 H 120/68 09/27/18 15:00 93 H 107/60 09/27/18 14:40 96 H 125/69 09/27/18 14:20 97 H 124/72 09/27/18 14:00 97 H 122/68 09/27/18 13:49 37.2 C 97 H 97 H 128/65 09/27/18 12:14 36.3 C L 90 18 108/70 Pulse Ox 09/28/18 07:07 97 09/28/18 04:20 94 09/28/18 00:22 09/27/18 20:32 94 09/27/18 19:35 91 09/27/18 16:16 97 09/27/18 15:50 09/27/18 15:40 09/27/18 15:20 09/27/18 15:00 09/27/18 14:40 09/27/18 14:20 09/27/18 14:00 09/27/18 13:49 09/27/18 12:14 96 Recovery Score Activity: Moves 4 extremities Respiration: Deep Breath/Cough Circulation: +/-20% PreAnes Value Consciousness: Fully Awake Oxygen Saturation: O2 needed for >90% Discharge Sedation Level of Care: Fast Track Phase II Post Sedation Plan On clinical assessment, the patient appears to have tolerated the sedation without complications. Patient is recovering as anticipated. Patient will continue to be monitored by nursing and may be discharged when sedation discharge criteria are met per below protocol. Upon Completions of procedure and additional 15 minutes continue every 5 minute vital signs and the P.A.R. score; then discharge to a Phase I or Fast Track to Phase II per the following guidelines: * Discharge Patient to appropriate Phase II area if PAR is 8 or greater or return to pre- procedure baseline. The post - procedure orders will be as directed. * If PAR score is less than 8 or not return to pre-procedure baseline then patient will follow Phase I monitoring till PAR is reached for Phase II. The Phase I may be done in procedure room or may call to secure a Phase I area. * If naloxone or flumazenil are used for reversal, hold in Phase I for continued monitoring from when last reversal dose was given for a minimum of 60 minutes or longer pending the nurse and/or physician discretion of patient condition before discharge to Phase II. Please call the Sedation Physician to re-evaluate and complete post-note for discharge to Phase II area. Do NOT discharge from procedure sedation or Phase 1 until post- sedation evaluation note is complete by procedure /sedation MD Sedation Discharge Instructions to be given to the patient at discharge to home.
--- NOTE | 2018-09-28 12:06 | Cardiac Catheterization ---
Cardiac Cath Procedure Full Procedure Date September 28, 2018 Pre-Procedure Diagnosis Pre-Procedure Diagnosis: Non STEMI and Cardiomyopathy AUC Score AUC Score: 8 Post-Procedure Diagnosis Post-Procedure Diagnosis: Severe CAD and Normal Intracardiac Pressures Procedure(s) Performed Procedure(s) Performed: Coronary Angiography, Left Heart Cath and Drug Eluting Stent Home Theater Specialist Aurelio Pal MD Casino Gaming Inspector(s) [place] Estimated Blood Loss Estimated Blood Loss: 15 Medication(s) Medication(s): Clopidogrel, Fentanyl, Heparin, Lidocaine 1%, Nicardipine and Nitroglycerin Summary of Findings Indication: NSTEMI, new severe LV dysfunction Access: 6 Fr slender right radial artery under ultrasound guidance Catheters: [place], EBU 3.5 guide Findings: LM -calcified, mild disease LAD -heavily calcified, diffuse 50% proximal to mid disease, focal 95% stenosis after takeoff of small second diagonal distal vessel with mild to moderate diffuse disease Circumflex -moderate caliber vessel 20% mid segment disease moderate caliber OM 3 with mild disease RCA -large caliber vessel, dominant, 60% earlymid stenosis, distal luminal irregularities, mild disease and small right PDA LVEDP -9 -- PCI -- Antithrombotic therapy: Heparin, clopidogrel Procedure: Left cannulated with EBU 3.5 guide Speech Language Specialist 50 wire passed across lesion into distal vessel IVUS used to assess extent of disease in proximal LAD, degree of calcification. Heavy circumferential calcium extending back to ostium of LAD Mid to proximal LAD predilated with 2.5 compliant balloon Mid focal stenosis stented with 2.25 x 15 Jos Second DONNA placed from ostium to mid segment 2.75 x 22 [place], 2 mm gap between stents Repeat IVUS showed underexpanded stents with proximal stent extending just ostium Stents post-dilated with 3.0 noncompliant balloon IC vasodilators administered for spasm Post procedure CESAR 3 flow, stent well expanded with minimal residual stenosis and no apparent cardiac complications. Arterial Closure: TR band Summary: 1. Severe multi-vessel coronary artery disease -Calcified, diffuse 50% proximal-mid LAD with 95% focal acute appearing mid segment stenosis 60% earlymid RCA 2. Normal intracardiac filling pressure 3. Successful PCI of proximal to mid LAD with 2 drug-eluting stents (2.75 x 22, 2.25 x 15 [place]; postdilated with 3.0 NC). Recommendations: To PCU for continued monitoring Loaded with clopidogrel 600 mg Continue dual-antiplatelet therapy for at least one year Continued ASCVD risk factor modification, guideline directed medical therapy for ischemic cardiomyopathy per Dr. 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 Cardiac Status Clinical evaluation leading to the procedure CAD Presenation: Non STEMI Anginal Classification: CCS IV Heart Failure: No Cardiogenic Shock within 24 Hours: No Cardiac Arrest within 24 Hours: No Imaging Studies Past 6 Months: Yes Stress Studies Past 6 Months: No Diagnostic Physicians Name: Aurelio Pal MD Status: Elective Closure Device Percutaneous Entry Location: Radial Closure Device: Radial Band Recommendations: None PCI Indication: PCI for high risk Non-CHAYO Lesion Segment Name: proximal to mid LAD Culprit Artery: Yes Stenosis Prior to Rx (%): 95 Chronic Total Occlusion: No IVUS: Yes FFR: No Pre-Procedure CESAR Flow: 3 Previously Treated Lesion: No Lesion Complexity: High/C Lesion Length (mm): 35 Thrombus Present: No Bifurcation Lesion: Yes Guidewire Across Lesion: Stenosis Post-Procedure (%): 0 Post-Procedure CESAR Flow: 3 Devices(s) Deployed: Yes Yes Intraprocedure Events Significant Disection: No Perforation: No
--- NOTE | 2018-09-28 12:24 | Hospitalist Progress Note ---
Date of Service September 28, 2018 Assessment & Plan (1) Acute systolic CHF (congestive heart failure): Concern for acute systolic CHF possibly from an asymptomatic [place]. Ischemic cardiomyopathy.Treated with emergent HD on 09/26 with improvement in his symptoms. CXR on 09/26 showed pulmonary edema. Per , baseline weight is 84 kg, and he is down to 79 kg. - Lasix per nephrology - HD per nephrology - Start Entresto per cardiology - As of 09/28, less shortness of breath and no orthopnea. Likely close to euvolemic at this time. - LHC on 09/28 showed significant diffuse disease. Received 2 DONNA to the distal LAD. - DAPT x 1 year (2) ESRD (end stage renal disease) on dialysis: From DM. - Usually runs 5x/week with short runs at home. - HD per nephrology - Hold Ca acetate for high calcium (3) Elevated troponin: Troponin was 1.6 on admission. EKG with mild ST depression from priors. Some chest pain overnight, but none during my interview with the patient and none so far during admission. - Continue ASA - Cardiology consulted - Troponins were 1.6, 1.8, and 1.6, pointing away from an acute thrombotic event. Likely type 2 [place] in setting of fluid volume overload and ESRD. (4) Hypertension: BP has been within desired limits so far this admission. - Continue home BP meds: amlodipine (5) Diabetes: No A1c in chart. - Lowered home Lantus from 60 units daily to 40 units daily - Sliding scale insulin (6) Multiple sclerosis: On Rebif therapy per outpatient nephrology notes. No neurology notes in our system. - No current inpatient needs (7) BPH (benign prostatic hyperplasia): No LUTS. - Continue dutasteride (8) DVT prophylaxis: SCDs - Low DVT risk per admission calculator Subjective Feels better today. Less confusion. Review of Systems Review of Systems: All systems reviewed & are unremarkable except as noted in HPI & below Physical Exam Constitutional: WD/WN, vitals as above Eyes: EOM intact bilaterally; no conjunctival abnormality ENMT: external ear and nose normal, oropharynx normal Neck: trachea midline, no thyromegaly normal visual inspection Respiratory: normal respiratory effort, lungs clear to auscultation no respiratory distress Cardiovascular: RRR, no murmur, no edema Gastrointestinal (Abdomen): Inspection/Auscultation: abdomen normal to inspection; abdomen not distended Musculoskeletal: no cyanosis or clubbing, extremities motor strength 5/5 Skin: no rashes, warm and dry Neurologic: moves all extremities and awake Psychiatric: Orientation: alert, oriented to person and cooperative Results & Data Vital Signs (Past 12 Hours) Vital Signs Temp Pulse Pulse Resp BP BP BP 09/28/18 12:06 36.5 C 97 H 20 186/69 H 09/28/18 07:07 36.3 C L 95 H 21 108/69 09/28/18 04:20 36.3 C L 84 19 169/94 H 09/28/18 00:22 100 H Pulse Ox 09/28/18 12:06 94 09/28/18 07:07 97 09/28/18 04:20 94 09/28/18 00:22 (1) Hypertension Hypertension type: secondary to other renal disorders Qualified Code(s): I15.1 - Hypertension secondary to other renal disorders; N28.89 - Other specified disorders of kidney and ureter
[2018-09-28] MEDS: ROSUVASTATIN CALCIUM 10 MG TAB PO SCH (20:16)
[2018-09-28] MEDS: NORTRIPTYLINE HCL 25 MG CAP PO SCH (20:17)
[2018-09-28] MEDS: ASPIRIN 81 MG ECTAB PO SCH (20:17)
[2018-09-29 06:23] LABS: Hematocrit (blood only) 24.6 % (42-52); Hemoglobin 8.3 g/dL (14.0-18.0); Mean Corpuscular Hgb Conc 33.7 g/dL (32-36); Mean Corpuscular Volume 90.4 fL (80-100); Mean Platelet Volume 9.9 fL (7.4-10.4); Platelet Count 280 K/uL (130-400); RDW Coefficient of Variation 16.7 % (11.5-14.5); RDW Standard Deviation 54.8 fL (36.4-46.3); Red Blood Count 2.72 M/uL (4.7-6.1); White Blood Count 9.31 K/uL (4.8-10.8)
[2018-09-29] MEDS ORDERED: SODIUM CHLORIDE 0.9% 1000ML 1,000 ML IV PRN (07:00)
[2018-09-29 07:05] LABS: BUN Creatinine Ratio 8.3 (10-20); Creatinine Clr Calc Pharmacy 8.7 ml/min; Est GFR (African American) 7.2; Est GFR (Non-African American) 6.2; Potassium 4.1 mmol/L (3.5-5.1)
[2018-09-29] MEDS: AMLODIPINE BESYLATE 5 MG TAB PO SCH ×2 (07:47→20:51)
[2018-09-29] MEDS: SACUBITRIL-VALSARTAN 24-26 MG TAB PO SCH ×2 (07:52→20:51)
[2018-09-29] MEDS: FUROSEMIDE 80 MG TAB PO SCH (07:52)
[2018-09-29] MEDS: MULTIVITAMIN TAB PO SCH (07:52)
[2018-09-29] MEDS: METOPROLOL TARTRATE 25 MG TAB PO SCH (07:52)
[2018-09-29] MEDS: CALCIUM ACETATE 667 MG CAP PO SCH (07:53)
[2018-09-29] MEDS: CLOPIDOGREL BISULFATE 75 MG TAB PO SCH (07:54)
[2018-09-29] MEDS: DUTASTERIDE 0.5 MG CAPSULE PO SCH (07:55)
[2018-09-29] MEDS: INSULIN ASPART 100 UNITS/ML 3 ML PEN SC SCH ×4 (07:56→21:07)
[2018-09-29] MEDS: INSULIN GLARGINE SOLOSTAR 100 UNITS/ML 3 ML PEN SQ SCH (07:57)
--- NOTE | 2018-09-29 09:59 | Cardiology Progress Note ---
Date of Service September 29, 2018 Subjective He is pleasantly confused this morning he tries to answer questions appropriately but cannot. Denies any chest pain or chest pressure or shortness of breath he denies any palpitations lightheadedness or dizziness. I am not sure he understands that he even had a heart catheterization yesterday. Results & Data Vital Signs (Past 12 Hours) Vital Signs Temp Pulse Pulse Resp BP Pulse Ox 09/29/18 08:01 37.1 C 100 H 16 143/73 H 99 09/29/18 04:00 36.5 C 98 H 18 136/58 L 95 09/29/18 00:45 100 H He is awake alert oriented to person But thought he was in [place] and did n ot know that he was in the hospital HEENT: Moderately reduced carotid upstrokes no evidence of carotid bruits jugular venous pressure appeared normal Lungs: Clear to auscultation bilaterally no rales rhonchi or wheezing Heart: Regular rate and rhythm no appreciable murmurs rubs or gallops Abdomen: Soft nontender distended positive bowel sounds Extremities: No clubbing cyanosis or edema Psychiatric: Pleasantly confused (1) Elevated troponin: Non-ST elevation myocardial infarction Status post angioplasty and stenting of the proximal to mid left anterior descending artery for a 95% stenosis with 2 drug-eluting stents He will remain on aspirin for life and Plavix for a year (2) Ischemic cardiomyopathy: Severe and new as far as an EF of 20 to 25% with regional wall motion abnormalities He is currently on Entresto.We will plan to double the dose as an outpatient in approximately 2 to 3 weeks. I will switch his metoprolol tartrate to metoprolol succinate and increase the dose to 50 mg daily. Again as an outpatient his beta-blockers and Entresto will be uptitrated based on his heart rate and blood pressure. Hopefully with intervention to his LAD he will have improvement in his LV func tion. (3) confusion with change in mental status: CT of his head was negative for any bleed before his angioplasty and stenting. In discussion with the primary service this appears to be exacerbation of his underlying dementia. His admits that she has noticed signs which have only been worsened due to removing him from his normal environment (4) ESRD (end stage renal disease) on dialysis: (5) Pulmonary edema: Stable Responded very well to volume unloading with dialysis. 6. Multiple sclerosis His right radial pulse is intact his hand is warm to touch. He can be dis charged home with post cath instructions he is she. He should not submerge his arm in a hot tub bathtub pool or bucket of water for 3 to [address] at this point.
--- NOTE | 2018-09-29 10:07 | Nephrology Progress Note ---
Date of Service September 29, 2018 Assessment & Plan (1) ESRD (end stage renal disease) on dialysis: -- HD today, orders entered into EMR and discussed with HD nurse -- BP and volume stats are acceptable -- Don will resume prior home HD Rx at discharge with EDW of 82 kg -- Furosemide 80 mg to encourage urine output -- Monitor metabolic profile daily -- Document I/O's -- Patient's plans to schedule outpatient follow up with neurology regarding dementia (2) Pulmonary edema: (3) Hypertension: (4) Anemia: -- Hgb 10.1 earlier this month -- Tx with micera 150 Q 2 weeks and venofer 200 monthly as outpatient (5) Ischemic cardiomyopathy: -- DONNA x 2 to mid LAD yesterday -- Cardiology follow up arranged -- Entresto started -- Antiplatelet therapy with aspirin and plavix Subjective Naveen was confused and slightly agitated again yesterday evening. He feels well this morning. His is concerned about progressive dementia and would like to pursue outpatient evaluation. He denies dyspnea. He denies chest pain. He denies palpitations. Review of Systems Review of Systems: All systems reviewed & are unremarkable except as noted in HPI & below Physical Exam Constitutional: well developed; no acute distress Eyes: no scleral abnormality and no corneal abnormality ENMT: Mouth: no oral mucosal abnormality and oral mucous membranes not dry Neck: normal visual inspection and trachea midline Respiratory: no respiratory distress Auscultation: lungs clear to auscultation bilaterally; no rales Cardiovascular: Heart Sounds: normal S1, normal S2 and + murmur Vessels: no JVD Extremities: no edema Gastrointestinal (Abdomen): Percussion/Palpation: abdomen soft; abdomen nontender Musculoskeletal: Extremities: no cyanosis and no clubbing Skin: normal turgor; no rashes Neurologic: Motor/Sensory: no tremor and no asterixis Psychiatric: Orientation: alert Affect: euthymic affect Results & Data Vital Signs (Past 12 Hours) Vital Signs Temp Pulse Pulse Resp BP Pulse Ox 09/29/18 08:01 37.1 C 100 H 16 143/73 H 99 09/29/18 04:00 36.5 C 98 H 18 136/58 L 95 09/29/18 00:45 100 H Laboratory Results Laboratory Results - last 24 hr 09/28/18 09/28/18 09/28/18 11:17 12:14 17:27 WBC RBC Hgb Hct MCV MCH MCHC RDW Std Deviation RDW Coeff of Leo Plt Count MPV Activ Coag Time Kaolin 219 H Sodium Potassium Chloride Carbon Dioxide Anion Gap BUN Creatinine Est Cr Clr Drug Dosing Est GFR ( Amer) Est GFR (Non-Af Amer) BUN/Creatinine Ratio Glucose POC Glucose 112 H 143 H Calcium 09/28/18 09/29/18 09/29/18 20:50 06:12 06:12 WBC 9.31 RBC 2.72 L Hgb 8.3 L Hct 24.6 L MCV 90.4 MCH 30.5 MCHC 33.7 RDW Std Deviation 54.8 H RDW Coeff of Leo 16.7 H Plt Count 280 MPV 9.9 Activ Coag Time Kaolin Sodium 137 Potassium 4.1 Chloride 100 Carbon Dioxide 24 Anion Gap 13.0 H BUN 66 H D Creatinine 7.90 H* D Est Cr Clr Drug Dosing 8.7 Est GFR ( Amer) 7.2 Est GFR (Non-Af Amer) 6.2 BUN/Creatinine Ratio 8.3 L Glucose 109 H POC Glucose 153 H Calcium 10.0 09/29/18 06:59 WBC RBC Hgb Hct MCV MCH MCHC RDW Std Deviation RDW Coeff of Leo Plt Count MPV Activ Coag Time Kaolin Sodium Potassium Chloride Carbon Dioxide Anion Gap BUN Creatinine Est Cr Clr Drug Dosing Est GFR ( Amer) Est GFR (Non-Af Amer) BUN/Creatinine Ratio Glucose POC Glucose 129 H Calcium (1) Pulmonary edema Chronicity: acute Qualified Code(s): J81.0 - Acute pulmonary edema
[2018-09-29] MEDS: METOPROLOL SUCC 50MG EXT REL TAB PO SCH (15:55)
--- NOTE | 2018-09-29 17:25 | Magnetic Resonance Report ---
MRI OF THE BRAIN WITHOUT CONTRAST CLINICAL HISTORY: Left facial droop and slurred speech COMPARISON STUDY: Noncontrast head CT dated 09/27/2018, MRI the brain dated June 22, 2016 FINDINGS: Sagittal T1, axial diffusion, proton density and T2 weighted axial, coronal FLAIR, and axial T1-weigh melita images were acquired. No intra or extra-axial mass lesions are visualized There is a 12 cm focus of restricted water diffusion at the junction of the insular cortex and corrections nurse ior lateral aspect of the lentiform nucleus on the right. The findings are consistent with acute/suba cute infarct. There is no evidence of ventricular dilatation. Proton density T2-weighted and FLAIR images reveal extensive foci of increased T2 signal within the w juliocesar matter, similar to the prior study. There are no abnormal flow voids. IMPRESSION: 1. 12 mm acute/subacute infarct at the junction of the insular cortex and posterior aspect of the rig ht lentiform nucleus 2. Extensive foci of increased T2 signal within the white matter, similar to the prior study, and lik shannan secondary to the patient's reported multiple sclerosis history Electronically signed by: Rony Urbano M.D. 09/29/2018 5:23 PM
--- NOTE | 2018-09-29 17:37 | Hospitalist Progress Note ---
Date of Service September 29, 2018 Assessment & Plan (1) CVA (cerebral vascular accident): Had Code Lipscomb in hemodialysis on 09/29. noted left facial droop and some slurred speech. Discussed with neurology who felt he had clear contraindication to tPA from his recent artertial stick and his AV fistula. - MRI brain showed 12 mm acute/subacute infarct at the junction of the insular cortex and posterior aspect of the right lentiform nucleus - Monitor neurologic status - Consulted neurology - Dr. Finn will see him tomorrow. - Statin (2) Acute systolic CHF (congestive heart failure): Concern for acute systolic CHF possibly from an asymptomatic ND. Ischemic cardiomyopathy.Treated with emergent HD on 09/26 with improvement in his symptoms. CXR on 09/26 showed pulmonary edema. Per , baseline weight is 84 kg, and he is down to 79 kg. - Lasix per nephrology - HD per nephrology - Start Entresto per cardiology - As of 09/28, less shortness of breath and no orthopnea. Likely close to euvolemic at this time. - LHC on 09/28 showed significant diffuse disease. Received 2 DONNA to the distal LAD. - DAPT x 1 year (3) Coronary artery disease: Troponin was 1.6 on admission. EKG with mild ST depression from priors. Some chest pain overnight, but none during my interview with the patient and none so far during admission. - Continue ASA - Cardiology consulted - Troponins were 1.6, 1.8, and 1.6, pointing away from an acute thrombotic event. Likely type 2 ND in setting of fluid volume overload and ESRD. - LHC on 09/28 showed significant diffuse disease. Received 2 DONNA to the distal LAD. - DAPT x 1 year - Statin (4) ESRD (end stage renal disease) on dialysis: From DM. - Usually runs 5x/week with short runs at home. - HD per nephrology - Hold Ca acetate for high calcium (5) Hypertension: BP has been within desired limits so far this admission. - Continue home BP meds: amlodipine (6) Diabetes: No A1c in chart. - Lowered home Lantus from 60 units daily to 40 units daily - Sliding scale insulin (7) Multiple sclerosis: On Rebif therapy per outpatient nephrology notes. No neurology notes in our system. - No current inpatient needs (8) BPH (benign prostatic hyperplasia): No LUTS. - Continue dutasteride (9) DVT prophylaxis: SCDs - Low DVT risk per admission calculator I spent 75 minutes in direct prolonged care of this patient. 9:00am - 9:30am 2:30pm - 3pm 6:00pm - 6:15pm Subjective Denies shortness of breath. Feels upset about the prolonged HD. Otherwise, no major concerns. Physical Exam Constitutional: WD/WN, vitals as above + acute distress and + lethargic Eyes: EOM intact bilaterally; no conjunctival abnormality ENMT: external ear and nose normal, oropharynx normal Neck: trachea midline, no thyromegaly normal visual inspection Respiratory: normal respiratory effort, lungs clear to auscultation no respiratory distress Cardiovascular: RRR, no murmur, no edema Rate/Rhythm: regular rhythm and + tachycardic Heart Sounds: + cardiac rub Vessels: no JVD Extremities: + AV fistula (LUE); no edema Gastrointestinal (Abdomen): Inspection/Auscultation: abdomen normal to inspection and normal bowel sounds; abdomen not distended Musculoskeletal: no cyanosis or clubbing, extremities motor strength 5/5 Skin: no rashes, warm and dry Neurologic: moves all extremities and awake Psychiatric: Orientation: alert, oriented to person and cooperative Apperance: + disheveled Results & Data Vital Signs (Past 12 Hours) Vital Signs Temp Pulse Pulse Resp BP BP BP 09/29/18 16:00 111 H 137/62 09/29/18 15:19 36.9 C 105 H 19 138/82 09/29/18 13:50 102 H 18 142/78 H 09/29/18 13:00 101 H 135/74 09/29/18 12:40 98 H 124/60 09/29/18 12:35 100 H 115/60 09/29/18 12:33 102 H 97/50 L 09/29/18 12:20 102 H 118/66 09/29/18 12:00 100 H 125/54 L 09/29/18 11:40 102 H 142/70 H 09/29/18 11:20 100 H 120/64 09/29/18 11:00 100 H 125/63 09/29/18 10:40 101 H 130/55 L 09/29/18 10:20 100 H 117/59 L 09/29/18 10:00 100 H 136/63 09/29/18 09:40 101 H 135/50 L 09/29/18 09:09 37.1 C 101 H 09/29/18 08:01 37.1 C 100 H 16 143/73 H Pulse Ox 09/29/18 16:00 09/29/18 15:19 98 09/29/18 13:50 96 09/29/18 13:00 09/29/18 12:40 09/29/18 12:35 09/29/18 12:33 09/29/18 12:20 09/29/18 12:00 09/29/18 11:40 09/29/18 11:20 09/29/18 11:00 09/29/18 10:40 09/29/18 10:20 09/29/18 10:00 09/29/18 09:40 09/29/18 09:09 09/29/18 08:01 99 (1) Hypertension Hypertension type: secondary to other renal disorders Qualified Code(s): I15.1 - Hypertension secondary to other renal disorders; N28.89 - Other specified disorders of kidney and ureter
[2018-09-29] MEDS: NORTRIPTYLINE HCL 25 MG CAP PO SCH (20:51)
[2018-09-29] MEDS: ASPIRIN 81 MG ECTAB PO SCH (20:52)
[2018-09-29] MEDS: ROSUVASTATIN CALCIUM 10 MG TAB PO SCH (20:52)
[2018-09-30 05:56] LABS: Hematocrit (blood only) 25.8 % (42-52); Hemoglobin 8.5 g/dL (14.0-18.0); Mean Corpuscular Hgb Conc 32.9 g/dL (32-36); Mean Corpuscular Volume 90.5 fL (80-100); Mean Platelet Volume 9.7 fL (7.4-10.4); Platelet Count 312 K/uL (130-400); RDW Coefficient of Variation 16.5 % (11.5-14.5); RDW Standard Deviation 55.4 fL (36.4-46.3); Red Blood Count 2.85 M/uL (4.7-6.1); White Blood Count 8.63 K/uL (4.8-10.8)
[2018-09-30 06:38] LABS: Albumin Globulin Ratio 0.6 (0.9-2); Albumin Level 2.5 gm/dl (3.4-5.0); BUN Creatinine Ratio 7.1 (10-20); Bilirubin,Total 0.6 mg/dl (0.2-1); Creatinine Clr Calc Pharmacy 13.1 ml/min; Est GFR (African American) 11.9; Est GFR (Non-African American) 10.3; Globulin 4.5 gm/dl (2.5-4.0); Magnesium 2.3 mg/dl (1.8-2.4); Potassium 3.9 mmol/L (3.5-5.1)
--- NOTE | 2018-09-30 07:19 | Ultrasound Report ---
CAROTID ARTERY ULTRASOUND CLINICAL HISTORY: Cerebrovascular accident. COMPARISON STUDY: None. TECHNIQUE: Real-time, grayscale, and color Doppler sonography of the carotid and vertebral arteries w as performed. Images were viewed in the transverse and longitudinal planes. FINDINGS: There is mild atherosclerotic plaque present. Velocity measurements are listed below. COMMON CAROTID PEAK SYSTOLIC VELOCITY (CM/S): RIGHT 56 LEFT 61 ICA PEAK SYSTOLIC VELOCITY (CM/S): RIGHT 74 LEFT 59 Systolic ratios between the internal to common carotid arteries are normal. Antegrade flow is seen in the vertebral arteries. The external carotid arteries are patent. Due to limb restrictions, blood pressure was not obtained. IMPRESSION: No evidence of a hemodynamically significant stenosis. Mild atherosclerotic plaque. Electronically signed by: Denver Robbins M.D. 09/30/2018 7:17 AM
[2018-09-30] MEDS ORDERED: ATORVASTATIN 40 MG TAB PO SCH (09:00)
[2018-09-30] MEDS: AMLODIPINE BESYLATE 5 MG TAB PO SCH (09:13)
[2018-09-30] MEDS: CLOPIDOGREL BISULFATE 75 MG TAB PO SCH (09:14)
[2018-09-30] MEDS: MULTIVITAMIN TAB PO SCH (09:14)
[2018-09-30] MEDS: FUROSEMIDE 80 MG TAB PO SCH (09:14)
[2018-09-30] MEDS: METOPROLOL SUCC 50MG EXT REL TAB PO SCH (09:14)
[2018-09-30] MEDS: CALCIUM ACETATE 667 MG CAP PO SCH (09:14)
[2018-09-30] MEDS: SACUBITRIL-VALSARTAN 24-26 MG TAB PO SCH (09:14)
[2018-09-30] MEDS: DUTASTERIDE 0.5 MG CAPSULE PO SCH (09:15)
[2018-09-30] MEDS: INSULIN GLARGINE SOLOSTAR 100 UNITS/ML 3 ML PEN SQ SCH (09:16)
[2018-09-30] MEDS: INSULIN ASPART 100 UNITS/ML 3 ML PEN SC SCH ×2 (09:22→12:49)
--- NOTE | 2018-09-30 09:46 | Nephrology Progress Note ---
Date of Service September 30, 2018 Assessment & Plan (1) ESRD (end stage renal disease) on dialysis: -- Electrolytes appropriate -- BP and volume stats are acceptable -- Phill will resume prior home HD Rx at discharge with EDW of 80 kg -- Furosemide 80 mg to encourage urine output -- Monitor metabolic profile daily -- Document I/O's (2) Pulmonary edema: -- Dry weight adjusted (3) Hypertension: (4) Anemia: -- Hgb 10.1 earlier this month -- Tx with micera 150 Q 2 weeks and venofer 200 monthly as outpatient (5) Ischemic cardiomyopathy: -- DONNA x 2 to mid LAD 09/28/18 -- Entresto started -- Antiplatelet therapy with aspirin and plavix (6) CVA (cerebral vascular accident): -- MRI demonstrated a 12 mm acute/subacute infarct in the right lentiform nucleus -- Carotid duplex did not demonstrate significant stenosis Subjective Naveen was confused overnight. He developed agitation during hemodialysis yesterday. MRI demonstrated an acute/subacute infarct at the junction of the insular cortex and posterior aspect of the right lentiform nucleus. His is at the beside this morning. Phill remains slightly confused but his feels that he is approaching his recent baseline. They are hoping to speak with Phill's neurologist today. Review of Systems Review of Systems: All systems reviewed & are unremarkable except as noted in HPI & below Physical Exam Constitutional: well developed; no acute distress Eyes: no scleral abnormality and no corneal abnormality ENMT: Mouth: no oral mucosal abnormality and oral mucous membranes not dry Neck: normal visual inspection and trachea midline Respiratory: no respiratory distress Auscultation: lungs clear to auscultation bilaterally; no rales Cardiovascular: Heart Sounds: normal S1, normal S2 and + murmur Vessels: no JVD Extremities: no edema Gastrointestinal (Abdomen): Percussion/Palpation: abdomen soft; abdomen nontender Musculoskeletal: Extremities: no cyanosis and no clubbing Skin: normal turgor; no rashes Neurologic: Motor/Sensory: no tremor and no asterixis Psychiatric: Orientation: alert Affect: euthymic affect Results & Data Vital Signs (Past 12 Hours) Vital Signs Temp Pulse Pulse Resp BP Pulse Ox 09/30/18 07:43 36.5 C 96 H 18 142/84 H 94 09/30/18 04:00 36.8 C 94 H 18 167/78 H 94 09/30/18 00:00 98 H 09/29/18 23:27 36.8 C 99 H 18 137/80 94 Laboratory Results Laboratory Results - last 24 hr 09/29/18 09/29/18 09/29/18 13:00 16:20 20:09 WBC RBC Hgb Hct MCV MCH MCHC RDW Std Deviation RDW Coeff of Leo Plt Count MPV Sodium Potassium Chloride Carbon Dioxide Anion Gap BUN Creatinine Est Cr Clr Drug Dosing Est GFR ( Amer) Est GFR (Non-Af Amer) BUN/Creatinine Ratio Glucose POC Glucose 121 H 142 H 212 H Calcium Magnesium Total Bilirubin AST ALT Alkaline Phosphatase Total Protein Albumin Globulin Albumin/Globulin Ratio 09/30/18 09/30/18 09/30/18 05:34 05:34 07:16 WBC 8.63 RBC 2.85 L Hgb 8.5 L Hct 25.8 L MCV 90.5 MCH 29.8 MCHC 32.9 RDW Std Deviation 55.4 H RDW Coeff of Leo 16.5 H Plt Count 312 MPV 9.7 Sodium 136 Potassium 3.9 Chloride 100 Carbon Dioxide 26 Anion Gap 10.0 BUN 37 H Creatinine 5.23 H* D Est Cr Clr Drug Dosing 13.1 Est GFR ( Amer) 11.9 Est GFR (Non-Af Amer) 10.3 BUN/Creatinine Ratio 7.1 L Glucose 126 H POC Glucose 137 H Calcium 10.0 Magnesium 2.3 Total Bilirubin 0.6 AST 39 H ALT 60 Alkaline Phosphatase 80 Total Protein 7.0 Albumin 2.5 L Globulin 4.5 H Albumin/Globulin Ratio 0.6 L (1) Pulmonary edema Chronicity: acute Qualified Code(s): J81.0 - Acute pulmonary edema
--- NOTE | 2018-09-30 15:17 | Communication Note ---
Date of Service: September 30, 2018 I have seen Naveen Bravo today, discussed his case with Dr. Llanes, and discussed his case with his and his son who are in the room Don has extensive vascular risk factors including diabetes hypertension dyslipidemia and also suffers from chronic progressive multiple sclerosis but has not been on any disease modifying therapy for 3 years now correlating with the onset of renal dialysis which his handles at home He has a chronic gait disturbance, mild cognitive impairment and at one point had monocular visual disturbance all due to the MS and it was not clear that interferon therapy was altering the course of his disorder at all His neurologic status was complicated by a fall with cervical cord compression requiring surgical intervention by after about a year and a half ago and he recovered partially from this and remains ambulatory with assistive devices He was admitted to the hospital for some cardiac issues, on echo has a diminished ejection fraction with some segmental wall motion abnormalities and developed an acute dysarthria left facial weakness syndrome while in dialysis that has subsequently been shown to be due to a deep right hemispheric small vessel stroke He is currently on aspirin. Plavix has been added and will probably be maintained indefinitely He is done very well after his CVA 2 days ago. His speech remains a little dysarthric. There may be a slight left upper motor neuron facial asymmetry but his motor system deficits remain largely reflective of his MS and diabetic peripheral neuropathy well toes are equivocally upgoing I think they have been this way for some time and there is really no drift or pronation sign in the upper extremities. He does have pretty significant sensory loss to large fiber modalities below the knees and has no reflexes at the ankles or knees Mentally he is dull does not offer much spontaneously has some stereotypic speech but does recall seeing me in the office remembers my name after 3 years and when his and son are in the room appears to interact appropriately. Unfortunately when family members are not present he becomes quite agitated and they have been very conscientious and staying overnight to keep him off sedating medications Dr. Llanes is asked whether we could approve the discharge to home assuming that physical therapy feels he is safe after their evaluation and I certainly agree that this seems reasonable as long as his family feels comfortable managing him I be happy to take a look at him in the office in several weeks time allowing enough time for the effects of the vascular event to wear off in terms of his mental status and will do some assessment of his intellectual capacities at that time Unfortunately I do not think treating Naveen with standard "anti-dementia" medications such as anticholinesterase is or Namenda is going to offer anything other than side effects but this is something we can discuss with the family later I also feel that it would be an appropriate to reinstitute medications for his demyelinating disease in light of his chronic end-stage renal disease and dialysis his medications would likely be removed ineffective For his form of disease the only treatment available would be Ocrevus and it has a host of potential side effects and frankly in my experience over the last year and a half has really done very little to halt the progression of disease in many of my patients with primary progressive multiple sclerosis I will check back with Don tomorrow if he still in the hospital but for now have no further suggestions I thank Dr. Llanes for the opportunity to refamiliarize myself with Mr. Bravo and his family Rivera Finn MD
--- NOTE | 2018-09-30 15:58 | Discharge Summary ---
Date of Service September 30, 2018 Admission HPI Per Admitting Provider 68yo M w/ hx of DM, ESRD who presents with multiple symptoms. Per patient and , he had a fall ~2 1/2 weeks ago. He reports continued pain in the rib/chest region since this fall. On Wednesday, morning, he had his usual course of HD at home ( runs the machine) of about 2 hours. Afterward, his describes him as being "punky." She reports he was tired, confused, and had more ambulatory dysfunction than usual. He slept most of the day, and only awoke for meals and to get to bed. When awake, he was coughing, unable to stand, and lightheaded and nauseated. His appetite has been low, and he hasn't been eating or drinking well for some time. Additionally, Dr. Poe increased his nortriptyline dosage on to 50mg QHS (from 25mg). Overnight, he became short of breath and reported chest pain to his . He required assistance getting into a recliner which was where he slept. Sometime overnight, he tried to get up while his slept and had another fall. He reports a dry cough x several days. Principal Diagnosis Pulmonary edema due to ischemic cardiomyopathy. Stroke Discharge Exam Constitutional WD/WN, vitals as above Eyes EOM intact bilaterally; no conjunctival abnormality ENMT external ear and nose normal, oropharynx normal Neck trachea midline, no thyromegaly normal visual inspection Respiratory normal respiratory effort, lungs clear to auscultation no respiratory distress Cardiovascular RRR, no murmur, no edema Rate/Rhythm: regular rhythm and + tachycardic Heart Sounds: + cardiac rub Vessels: no JVD Extremities: + AV fistula (LUE); no edema Gastrointestinal (Abdomen) Inspection/Auscultation: abdomen normal to inspection and normal bowel sounds; abdomen not distended Musculoskeletal no cyanosis or clubbing, extremities motor strength 5/5 Skin no rashes, warm and dry Neurologic moves all extremities and awake Psychiatric Orientation: alert, oriented to person and cooperative Apperance: + disheveled Discharge Data Allergies Allergy/AdvReac Type Severity Reaction Status Date / Time No Known Allergies Allergy Unknown Verified 09/26/18 06:16 Consultations 09/26/18 07:18 ED Decision to Admit Stat 09/26/18 09:51 Consult Cardiology Routine Consult Case Management - Discharge Planning Routine Consult Nephrology Routine 09/29/18 15:05 Consult Neurology Routine Procedures Performed Operation Date: 09/28/18 07:25 Actual Procedures p Cath, Left with Cors and Vent - Jerome Pal MD s Cineradiography w/Routine Exam - Jerome Pal MD s IVUS Coronary Single Vessel - Jerome Pal MD s Drug Eluting Stent SGl Vessel - Jerome Pal MD s Ultrasound Vascular Access - Jerome Pal MD Ordered Studies 09/27/18 09:40 CT head/brain wo con Urgent 09/28/18 07:28 CL Cath Imgs for PACS use only Routine 09/28/18 12:04 CL IVUS Coronary Single Vessel Routine 09/29/18 15:05 MR brain wo con Urgent 09/30/18 06:28 US carotid doppler BI Routine Hospital Course (1) CVA (cerebral vascular accident): Had Code Lipscomb in hemodialysis on 09/29. noted left facial droop and some slurred speech when he got back. Discussed with neurology who felt he had clear contraindication to tPA from his recent arterial stick and his AV fistula. - MRI brain on 09/29 showed 12 mm acute/subacute infarct at the junction of the insular cortex and posterior aspect of the right lentiform nucleus - Consulted neurology - Dr. Finn saw him on 09/30. Carotid dopplers normal. Medical therapy with DAPT, blood pressure control, and statin - Will follow up in 2-3 weeks in clinic. (2) Acute systolic CHF (congestive heart failure): Acute systolic CHF possibly from an asymptomatic SC. Ischemic cardiomyopathy. Echo on 09/26 showed EF 25-30%. Treated with emergent HD on 09/26 with improvement in his symptoms. CXR on 09/26 showed pulmonary edema. Per , baseline weight is 84 kg, and he is down to 79 kg. On discharge, his new baseline weight is 80kg. - Lasix per nephrology - HD per nephrology - Started Entresto per cardiology - As of 09/28, less shortness of breath and no orthopnea. Likely close to euvolemic at this time. - LHC on 09/28 showed significant diffuse disease. Received 2 DONNA to the distal LAD. - DAPT x 1 year (3) Coronary artery disease: Troponin was 1.6 on admission. EKG with mild ST depression from priors. Some chest pain overnight, but none during my interview with the patient and none so far during admission. - Continue ASA - Troponins were 1.6, 1.8, and 1.6, pointing away from an acute thrombotic event. 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 - [facility] on 09/28 showed significant diffuse disease. Received 2 DONNA to the distal LAD. - DAPT x 1 year (4) ESRD (end stage renal disease) on dialysis: From DM. - Usually runs 5x/week with short runs at home. - HD per nephrology - Held Ca acetate for high calcium (5) Hypertension: BP has been within desired limits so far this admission. - Continue home BP meds: amlodipine (6) Diabetes: A1c was 4.5% while admitted. - Lowered home Lantus from 60 units daily to 40 units daily while inpatient. (7) Multiple sclerosis: On Rebif therapy per outpatient nephrology notes; however, after discussing with Dr. Finn, this is not true. He has not been seen since 2016. - Will follow up as outpatient. (8) BPH (benign prostatic hyperplasia): No LUTS. - Continue dutasteride (9) DVT prophylaxis: SCDs - Low DVT risk per admission calculator Total Time Total Time Spent Total Time Spent (In Minutes): 65 Total Time Includes: Examination of the Patient, Discharge Planning and Communication With Other Providers Discharge Plan Discharge Items Patient Disposition: Home - Home Health Services Reason For Visit: SHORTNESS OF BREATH Discharge Diagnosis: Ischemic cardiomyopathy, congestive heart failure (CHF) Discharge Goals: Decrease discomfort, Diagnostic testing and Improve disease control Activity: Resume your previous activity Lifting: No more than 10 pounds Lifting Comment: No lifting more than 10 lbs until seen by Dr. Wooten Bathing: May shower/bathe in 3 days Bathing Comment: Do not submerge the right arm in water (no bath) for 3 days. Showering ok. Non-emergency contact: Primary Care Provider, Director Of Safety And Security and Neurologist Call non-emergency contact if: your symptoms worsen and your pain is not controlled Follow-up/Referrals: Cheikh Wooten, [Physician] - (Notified Dr. Wooten's office that you will need a follow-up appointment within the next week. A task was sent to the nurse. You will be receiving a call from the nurse with your appointment date and time. Please call Dr. Wooten's office if you do not hear from them tomorrow.) Elyse Smith [Primary Care Provider] - 10/04/18 4:10 pm (An appointment has been made at your PCP's office on your behalf. Please call the office with any questions or concerns.) Rivera Finn MD [Physician] - (Notified Dr. Finn's office that you will need a follow-up appointment within the next week. A task was sent to the nurse. You will be receiving a call from the nurse with your appointment date and time. Please call the Neurology office with any questions or concerns.) Diet: Carb Consistent or DM2, Dialysis Renal and Heart Healthy Addtl Provider Instructions: Mr. Bravo, You were admitted to the hospital with shortness of breath which was caused by fluid backing up into the lungs. This occurred because your heart is not squeezing as well as it should due to heart blockages. These are a result of your kidney issues and diabetes as well as age. We did an extra 2 rounds of hemodialysis and took more fluid off which helped resolve the issue. We are adjusting your medications to help regain as much heart function as possible. You will follow up with Dr. Wooten in a few weeks to adjust your medications. Please continue your home dialysis the same way you were previously. Please follow up with your outpatient green house manager. Finally, please follow up with Dr. Finn for the stroke you had and follow up of your multiple schlerosis. Prescriptions: New Entresto 24-26 mg tablet 1 tab PO BID Qty: 60 RF: 0 metoprolol succinate [Toprol XL] 50 mg tablet extended release 24 hr 50 mg PO DAILY Qty: 30 RF: 0 clopidogrel [Plavix] 75 mg tablet 75 mg PO DAILY Qty: 30 RF: 1 Continued multivitamin Tablet 1 tab PO QAM RF: 0 Lantus U-100 Insulin 100 unit/mL Solution 60 unit SUBCUT QAM RF: 0 amlodipine 2.5 mg Tablet 2.5 mg PO BID RF: 0 calcium acetate 667 mg Tablet 667 mg PO 6XD RF: 0 aspirin [Aspir-81] 81 mg Tablet,Delayed Release (Dr/Ec) 81 mg PO HS RF: 0 lidocaine-prilocaine 2.5-2.5 % cream 1 applic topical DIRECTED PRN (Reason: 1 HOUR PRIOR TO DIALYSIS) RF: 0 meclizine 25 mg Tablet 25 mg PO DIRECTED PRN (Reason: Dizziness) RF: 0 dutasteride 0.5 mg Capsule 0.5 mg PO QAM RF: 0 rosuvastatin 10 mg Tablet 10 mg PO HS RF: 0 Changed nortriptyline 25 mg Capsule 25 mg PO HS Qty: 0 RF: 0 Stand-Alone Forms: Call Back Authorization, Count Includes [facility] Discharge Orders: Discharge Order (Routine); Ordered 09/30/18 Ordered By: Ilya Llanes Admission Data Admit Date/Time: 09/26/18 08:17 Attending Provider: Ilya Llanes Admit Provider: Ilya Llanes Primary Care Provider: Elyse Smith Other Providers: Ilya Llanes ; Cheikh Wooten Kevin C. ; Edilia Gao Service: Telemetry Medical
== END 2018-09-30 15:35 | disposition home health service (06) | DRG 228 ==
LOC: ED 05:35 → 2N 08:17 → 2E 09-28 12:19

== ENCOUNTER 2019-01-04 20:16 | Inpatient (IN) ==
[2019-01-04 21:47] LABS: INR 1.3 (0.9-1.1); Partial Thromboplastin Ratio 1.5; Partial Thromboplastin Time 40.3 Seconds (21.0-31.0); Prothrombin Time 12.7 Seconds (9.0-12.0)
--- NOTE | 2019-01-04 21:52 | XRay Report ---
XR chest 1V portable CLINICAL HISTORY: 68 years-old Male presenting with weak, fever. TECHNIQUE: Portable upright AP view of the chest was obtained. COMPARISON: 10/09/2018. FINDINGS: Atherosclerosis of the aortic arch. Cardiac silhouette enlarged. Pulmonary vascular prominence and di ffuse intralobular septal thickening. Patchy opacities with a mid to basilar predominance. Persistent ly mildly low lung volumes. Trace bilateral pleural effusions are not excluded. No large pneumothorax . Degenerative changes of the thoracic spine. Cervical fusion hardware noted. Cholecystectomy clips n oted. IMPRESSION: 1. Bilateral infiltrates could represent multifocal pneumonia. However, there is also an element of volume overload and congestive change making mild pulmonary edema also likely. Infection and edema co uld be concurrently present. Electronically signed by: Puma Castro M.D. 01/04/2019 9:51 PM
[2019-01-04] MEDS ORDERED: VANCOMYCIN HCL 1,500 MG in SODIUM CHLORIDE 0.9% 500 ML IV ONE (21:57)
[2019-01-04] MEDS ORDERED: VANCOMYCIN CONSULT ACTIVE PRN (21:57)
[2019-01-04] MEDS ORDERED: PIPERACILLIN/TAZOBACTAM 4.5 GM/120 ML BAG IV ONE (21:57)
[2019-01-04] MEDS ORDERED: PIPERACILL/TAZOBAC CONSULT ACTIVE PRN (21:57)
[2019-01-04 22:17] LABS: Albumin Globulin Ratio 0.6 (0.9-2); Albumin Level 2.5 gm/dl (3.4-5.0); BUN Creatinine Ratio 7.5 (10-20); Bilirubin,Total 0.4 mg/dl (0.2-1); Calcium 10.1 mg/dl (8.5-10.1); Creatinine Clr Calc Pharmacy 14.2 ml/min; Est GFR (African American) 11.7; Est GFR (Non-African American) 10.1; Globulin 4.2 gm/dl (2.5-4.0); Potassium 3.7 mmol/L (3.5-5.1); Total Protein 6.7 gm/dl (6.4-8.2); Troponin I 0.04 ng/ml (0-0.045)
[2019-01-04 22:40] LABS: Basophils # (auto) 0.03 K/uL (0-0.2); Basophils % (auto) 0.4 %; Eosinophils # (auto) 0.09 K/uL (0-0.5); Eosinophils % (auto) 1.2 %; Hematocrit (blood only) 31.6 % (42-52); Hemoglobin 10.5 g/dL (14.0-18.0); Immature Granulocytes # (auto) 0.02 K/uL (0.00-0.02); Immature Granulocytes % (auto) 0.3 %; Lymphocytes # (auto) 1.03 K/uL (1.2-3.4); Lymphocytes % (auto) 14.2 %; Mean Corpuscular Hemoglobin 28.9 pg (25-34); Mean Corpuscular Hgb Conc 33.2 g/dL (32-36); Mean Corpuscular Volume 87.1 fL (80-100); Mean Platelet Volume 11.1 fL (7.4-10.4); Monocytes # (auto) 0.98 K/uL (0.11-0.59); Monocytes % (auto) 13.5 %; Neutrophils # (auto) 5.12 K/uL (1.4-6.5); Neutrophils % (auto) 70.4 %; Platelet Count 133 K/uL (130-400); RDW Coefficient of Variation 19.4 % (11.5-14.5); RDW Standard Deviation 62.4 fL (36.4-46.3); Red Blood Count 3.63 M/uL (4.7-6.1); White Blood Count 7.27 K/uL (4.8-10.8)
[2019-01-05 00:01] LABS: Base Excess ABG 5.7 mEq/L (-9-1.8); HCO3 ABG 30 mmol/L (19-24); PCO2 ABG 40 mmHg (35-46); PO2 ABG 114 mm/Hg (80-95); pH ABG 7.48 (7.35-7.45)
[2019-01-05 00:02] LABS: Allen Test POS (Pos)
--- NOTE | 2019-01-05 01:47 | Emergency Department Note ---
Entered by Rosa Agrawal acting as a scribe for Rivera Deal MD ED Provider Note CHIEF COMPLAINT: Weakness HISTORY OF PRESENT ILLNESS: The patient is a 68 year old male who presents to the Emergency Room with complaints of constant and worsening weakness starting a couple days ago. The patient's daughter states the patient has been weak, rundown, and has had a high BP for the past couple days. She notes the patient has been clammy, sweaty, sore, and complains about his ribs hurting. She notes the patient had a fever and has been nauseous. She notes he has been urinating more. She states the patient has been having difficulty swallowing. She notes the patient has been complaining about arm pain. She states he has had swelling around his access point but denies puss and redness. She notes he has been doing more belly br eathing. She notes the patient does Home hemodialysis 5 days a week for about an hour and 50 minutes. She states the patient is scheduled for a Doppler tomorrow. She states the patient had a recent fall and hit his head. Pt and denies LOC, headache, chills, visual changes, neck pain, chest pain, vomiting, abdominal pain, back pain, melena, hematochezia, numbness, lymphadenopathy, rash, or other complaints. REVIEW OF SYSTEMS: See HPI for pertinent positives and negatives. A total of ten systems were reviewed and were otherwise negative. PMHx/PSHx: Diabetes SOCIAL HISTORY: Patient lives at home. PHYSICAL EXAM: GENERAL: Tired, sleepy but arousable. Non--appearing, in no distress HENT: Normocephalic, atraumatic. Oropharynx unremarkable. Altered sensorium. EYES: PERRL. Normal conjunctiva. Sclera non-icteric. NECK: Inspection normal. Non-tender. Supple. No nuchal rigidity. FROM. No masses. RESPIRATORY: No wheezes. No rales. Normal respiratory effort. Scattered rhonchi. CARDIAC: Normal rate. Normal rhythm. No murmurs. No rubs. Extremities warm and well perfused. Pulses equal. No JVD. GI: Soft, non-distended. No tenderness to palpation. No rebound or guarding. No masses. RECTAL: Deferred. MUSCULOSKELETAL: Atraumatic. Chest examination reveals no tenderness. The back is symmetrical on inspection without obvious abnormality. There is no CVA tenderness to palpation. No joint edema. LOWER EXTREMITIES: Calves are equal size bilaterally and non-tender. No edema. No discoloration. NEURO: Altered sensorium. No focal sensory or motor deficits noted. SKIN: No rash or jaundice noted. EMERGENCY DEPARTMENT COURSE: 2154: Past medical records reviewed. The patient was evaluated in room B8, and a complete history and physical examination were performed. 0051: I updated the patient and his family. 0115: I discussed the patient's case with Dr. Mcclure - [facility] keith. The patient will be evaluated for further management by him. MEDICAL DECISION MAKING: Prior records/ancillary studies reviewed. The patient was admitted for CVA and August of this year. Nursing notes reviewed and agree them. Additional history obtained from the family. The patient's history was concerning for altered mental status. Differential diagnosis: Etiologies such as infection, hypoglycemia, electrolyte abnormalities, cardiac sources, intracerebral event, toxicologic, neurologic, as well as others were entertained. Physical examination: As above. ER treatment provided: IV Lock IV vancomycin IV Zosyn On reassessment the patient felt better. Diagnostics interpretation by me: ECG: No acute ischemia The labs revealed a mild anemia on CBC but no significant leukocytosis. The patient's INR is 1.3. Troponin is within normal limits. ABG shows no evidence of hypercarbia. Adequate oxygenation. Imaging studies: Head CT was negative for acute process. The patient's chest x-ray is concerning for bilateral infiltrate The patient has increasing confusion. Family notes that this has been a problem since August but worsened over the last few days. states that she has been pulling off extra 1/2 kg for the last 2 days to avoid any volume overload. The patient does not have any significant edema on physical examination. His chest x-ray shows infiltrative change but there is some concern about fluid status by its appearance. He is hemodynamically stable at this point in time and will need further management in the hospital and likely dialysis in the morning. Consultation: A consultation was placed with the hospitalist. The case was discussed and diagnostics were reviewed. The patient was evaluated in the ER for further treatment. IMPRESSION: Pneumonia and altered mental status PLAN: Admitted The scribe's documentation has been prepared under my direction and personally reviewed by me in its entirety. I confirm that the note above accurately reflects all work, treatment, procedures, and medical decision making performed by me. 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 Beliefs That Will Affect Care: None marital status: Current Living Situation: Spouse current occupational status: retired Feels Safe at Home: Yes Smoking Status: Never smoker Second Hand Exposure: No ; Hx Alcohol Use: No Hx Substance Use: No Results & Data Vital Signs Vital Signs - 24 hr 01/04/19 20:22 01/04/19 20:46 01/04/19 23:13 Temperature 36.7 C Temperature Source Oral Sepsis Recent Fever Within 48 Hours No Sepsis Action Taken by Nursing No Action Required Pulse Rate 105 H Pulse Rate [Finger] 101 H Respiratory Rate 24 18 Respiratory Effort / Characteristics Non-Labored Spontaneous Respiratory Depth Normal Blood Pressure 150/81 H Blood Pressure [Right Arm] 161/97 H Blood Pressure Mean 104 Blood Pressure Mean [Right Arm] 118 Pulse Oximetry 92 96 97 Oxygen Delivery Method Room Air Nasal Cannula Nasal Cannula Oxygen Flow Rate 3 3 01/05/19 00:05 01/05/19 01:10 01/05/19 01:40 Temperature Temperature Source Sepsis Recent Fever Within 48 Hours Sepsis Action Taken by Nursing Pulse Rate Pulse Rate [Finger] 99 H 96 H Respiratory Rate 20 20 Respiratory Effort / Characteristics Respiratory Depth Blood Pressure Blood Pressure [Right Arm] 162/84 H 162/98 H Blood Pressure Mean Blood Pressure Mean [Right Arm] 110 119 Pulse Oximetry 98 95 86 L Oxygen Delivery Method Nasal Cannula Nasal Cannula Room Air Oxygen Flow Rate 3 Home Medications Current Medication List: was personally reviewed by me Laboratory Data Attestation: I reviewed the patient's lab results. Result diagrams: 01/04/19 22:27 01/04/19 21:21 Lab Results 01/04/19 01/04/19 01/04/19 Range/Units 20:00 21:20 21:21 WBC Cancelled RBC Cancelled Hgb Cancelled Hct Cancelled MCV Cancelled MCH Cancelled MCHC Cancelled RDW Std Deviation Cancelled RDW Coeff of Leo Cancelled Plt Count Cancelled MPV Cancelled Immature Gran % (Auto) Cancelled Neut % (Auto) Cancelled Lymph % (Auto) Cancelled Karnes % (Auto) Cancelled Eos % (Auto) Cancelled Baso % (Auto) Cancelled Immature Gran # (Auto) Cancelled Neut # (Auto) Cancelled Lymph # (Auto) Cancelled Karnes # (Auto) Cancelled Eos # (Auto) Cancelled Baso # (Auto) Cancelled Absolute Nucleated RBC Cancelled Nucleated RBC % (auto) Cancelled Neutrophils % (Manual) Cancelled Band Neutrophils % Cancelled Lymphocytes % (Manual) Cancelled Prolymphocyte % Cancelled Reactive Lymphs % (Man) Cancelled Monocytes % (Manual) Cancelled Eosinophils % (Manual) Cancelled Basophils % (Manual) Cancelled Metamyelocytes % (Man) Cancelled Myelocytes % (Man) Cancelled Promyelocytes % (Man) Cancelled Blast Cells % (Manual) Cancelled Plasma Cell % (Manual) Cancelled Other Cells % Cancelled Nucleated RBC % Cancelled Neutrophils # (Manual) Cancelled Band Neutrophils # Cancelled Total Absolute Neuts Cancelled Lymphocytes # (Manual) Cancelled Prolymphocyte # Cancelled Reactive Lymphs # Cancelled Total Abs Lymphocytes Cancelled Monocytes # (Manual) Cancelled Eosinophils # (Manual) Cancelled Basophils # (Manual) Cancelled Metamyelocytes # (Man) Cancelled Myelocytes # (Manual) Cancelled Promyelocytes # (Man) Cancelled Blast Cells # (Man) Cancelled Plasma Cell # (Manual) Cancelled Other Cells # Cancelled Nucleated RBCs # (Man) Cancelled Hypersegmented Neuts Cancelled Hyposegmented Neuts Cancelled Hypogranular Neuts Cancelled Large Granular Lymphs Cancelled # Lrg Granular Lymphs Cancelled Hairy Cells Cancelled Smudge Cells Cancelled Toxic Granulation Cancelled Toxic Vacuolation Cancelled Dohle Bodies Cancelled Ana Rods Cancelled Platelet Estimate Cancelled Hypogranular Platelets Cancelled Clumped Platelets Cancelled Giant Platelets Cancelled Platelet Satelliting Cancelled RBC Morphology Cancelled Polychromasia Cancelled Hypochromasia Cancelled Poikilocytosis Cancelled Basophilic Stippling Cancelled Anisocytosis Cancelled Microcytosis Cancelled Macrocytosis Cancelled Spherocytes Cancelled Pappenheimer Bodies Cancelled Sickle Cells Cancelled Target Cells Cancelled Tear Drop Cells Cancelled Ovalocytes Cancelled Stomatocytes Cancelled [place] Bodies Cancelled Echinocytes Cancelled Acanthocytes (Spur) Cancelled Rouleaux Cancelled RBC Agglutinates Cancelled Schistocytes Cancelled RBC Morph Comment Cancelled Sezary Cell Cancelled PT 12.7 H (9.0-12.0) Seconds INR 1.3 H (0.9-1.1) APTT 40.3 H (21.0-31.0) Seconds PTT Ratio 1.5 ABG pH ABG pCO2 ABG pO2 ABG HCO3 ABG O2 Saturation ABG Base Excess Javier Test Barometric Pressure Oxygen Given Sodium 136 (136-145) mmol/L Potassium 3.7 (3.5-5.1) mmol/L Chloride 99 (98-107) mmol/L Carbon Dioxide 30 (21-32) mmol/L Anion Gap 8.0 (3-11) BUN 40 H (7-18) mg/dl Creatinine 5.31 H* (0.6-1.4) mg/dl Est Cr Clr Drug Dosing 14.2 ml/min Est GFR ( Amer) 11.7 Est GFR (Non-Af Amer) 10.1 BUN/Creatinine Ratio 7.5 L (10-20) Glucose 148 H (70-99) mg/dl POC Lactic Acid Shailesh (0.90-1.70) mmol/L Calcium 10.1 (8.5-10.1) mg/dl Total Bilirubin 0.4 (0.2-1) mg/dl AST 16 (15-37) U/L ALT 23 (12-78) U/L Alkaline Phosphatase 73 (45-117) U/L Troponin I 0.040 (0-0.045) ng/ml Total Protein 6.7 (6.4-8.2) gm/dl Albumin 2.5 L (3.4-5.0) gm/dl Globulin 4.2 H (2.5-4.0) gm/dl Albumin/Globulin Ratio 0.6 L (0.9-2) Specimen Hemolysis 01/04/19 01/04/19 01/04/19 Range/Units 22:27 22:27 22:29 WBC 7.27 RBC 3.63 L Hgb 10.5 L Hct 31.6 L MCV 87.1 MCH 28.9 MCHC 33.2 RDW Std Deviation 62.4 H RDW Coeff of Leo 19.4 H Plt Count 133 MPV 11.1 H Immature Gran % (Auto) 0.3 Neut % (Auto) 70.4 Lymph % (Auto) 14.2 Karnes % (Auto) 13.5 Eos % (Auto) 1.2 Baso % (Auto) 0.4 Immature Gran # (Auto) 0.02 Neut # (Auto) 5.12 Lymph # (Auto) 1.03 L Karnes # (Auto) 0.98 H Eos # (Auto) 0.09 Baso # (Auto) 0.03 Absolute Nucleated RBC Nucleated RBC % (auto) Neutrophils % (Manual) Band Neutrophils % Lymphocytes % (Manual) Prolymphocyte % Reactive Lymphs % (Man) Monocytes % (Manual) Eosinophils % (Manual) Basophils % (Manual) Metamyelocytes % (Man) Myelocytes % (Man) Promyelocytes % (Man) Blast Cells % (Manual) Plasma Cell % (Manual) Other Cells % Nucleated RBC % Neutrophils # (Manual) Band Neutrophils # Total Absolute Neuts Lymphocytes # (Manual) Prolymphocyte # Reactive Lymphs # Total Abs Lymphocytes Monocytes # (Manual) Eosinophils # (Manual) Basophils # (Manual) Metamyelocytes # (Man) Myelocytes # (Manual) Promyelocytes # (Man) Blast Cells # (Man) Plasma Cell # (Manual) Other Cells # Nucleated RBCs # (Man) Hypersegmented Neuts Hyposegmented Neuts Hypogranular Neuts Large Granular Lymphs # Lrg Granular Lymphs Hairy Cells Smudge Cells Toxic Granulation Toxic Vacuolation Dohle Bodies Ana Rods Platelet Estimate Hypogranular Platelets Clumped Platelets Giant Platelets Platelet Satelliting RBC Morphology Polychromasia Hypochromasia Poikilocytosis Basophilic Stippling Anisocytosis Microcytosis Macrocytosis Spherocytes Pappenheimer Bodies Sickle Cells Target Cells Tear Drop Cells Ovalocytes Stomatocytes Byn[place] Bodies Echinocytes Acanthocytes (Spur) Rouleaux RBC Agglutinates Schistocytes RBC Morph Comment Sezary Cell PT (9.0-12.0) Seconds INR (0.9-1.1) APTT (21.0-31.0) Seconds PTT Ratio ABG pH Cancelled ABG pCO2 Cancelled ABG pO2 Cancelled ABG HCO3 Cancelled ABG O2 Saturation Cancelled ABG Base Excess Cancelled Javier Test Cancelled Barometric Pressure Cancelled Oxygen Given Cancelled Sodium (136-145) mmol/L Potassium (3.5-5.1) mmol/L Chloride (98-107) mmol/L Carbon Dioxide (21-32) mmol/L Anion Gap (3-11) BUN (7-18) mg/dl Creatinine (0.6-1.4) mg/dl Est Cr Clr Drug Dosing ml/min Est GFR ( Amer) Est GFR (Non-Af Amer) BUN/Creatinine Ratio (10-20) Glucose (70-99) mg/dl POC Lactic Acid Shailesh 1.12 (0.90-1.70) mmol/L Calcium (8.5-10.1) mg/dl Total Bilirubin (0.2-1) mg/dl AST (15-37) U/L ALT (12-78) U/L Alkaline Phosphatase (45-117) U/L Troponin I (0-0.045) ng/ml Total Protein (6.4-8.2) gm/dl Albumin (3.4-5.0) gm/dl Globulin (2.5-4.0) gm/dl Albumin/Globulin Ratio (0.9-2) Specimen Hemolysis 01/04/19 Range/Units 23:47 WBC RBC Hgb Hct MCV MCH MCHC RDW Std Deviation RDW Coeff of Leo Plt Count MPV Immature Gran % (Auto) Neut % (Auto) Lymph % (Auto) Karnes % (Auto) Eos % (Auto) Baso % (Auto) Immature Gran # (Auto) Neut # (Auto) Lymph # (Auto) Karnes # (Auto) Eos # (Auto) Baso # (Auto) Absolute Nucleated RBC Nucleated RBC % (auto) Neutrophils % (Manual) Band Neutrophils % Lymphocytes % (Manual) Prolymphocyte % Reactive Lymphs % (Man) Monocytes % (Manual) Eosinophils % (Manual) Basophils % (Manual) Metamyelocytes % (Man) Myelocytes % (Man) Promyelocytes % (Man) Blast Cells % (Manual) Plasma Cell % (Manual) Other Cells % Nucleated RBC % Neutrophils # (Manual) Band Neutrophils # Total Absolute Neuts Lymphocytes # (Manual) Prolymphocyte # Reactive Lymphs # Total Abs Lymphocytes Monocytes # (Manual) Eosinophils # (Manual) Basophils # (Manual) Metamyelocytes # (Man) Myelocytes # (Manual) Promyelocytes # (Man) Blast Cells # (Man) Plasma Cell # (Manual) Other Cells # Nucleated RBCs # (Man) Hypersegmented Neuts Hyposegmented Neuts Hypogranular Neuts Large Granular Lymphs # Lrg Granular Lymphs Hairy Cells Smudge Cells Toxic Granulation Toxic Vacuolation Dohle Bodies Ana Rods Platelet Estimate Hypogranular Platelets Clumped Platelets Giant Platelets Platelet Satelliting RBC Morphology Polychromasia Hypochromasia Poikilocytosis Basophilic Stippling Anisocytosis Microcytosis Macrocytosis Spherocytes Pappenheimer Bodies Sickle Cells Target Cells Tear Drop Cells Ovalocytes Stomatocytes Bynum-[place] Branch Bodies Echinocytes Acanthocytes (Spur) Rouleaux RBC Agglutinates Schistocytes RBC Morph Comment Sezary Cell PT (9.0-12.0) Seconds INR (0.9-1.1) APTT (21.0-31.0) Seconds PTT Ratio ABG pH 7.48 H ABG pCO2 40 ABG pO2 114 H ABG HCO3 30 H ABG O2 Saturation 98.0 H ABG Base Excess 5.7 H Javier Test POS Barometric Pressure 733.7 Oxygen Given 3 L Sodium (136-145) mmol/L Potassium (3.5-5.1) mmol/L Chloride (98-107) mmol/L Carbon Dioxide (21-32) mmol/L Anion Gap (3-11) BUN (7-18) mg/dl Creatinine (0.6-1.4) mg/dl Est Cr Clr Drug Dosing ml/min Est GFR ( Amer) Est GFR (Non-Af Amer) BUN/Creatinine Ratio (10-20) Glucose (70-99) mg/dl POC Lactic Acid Shailesh (0.90-1.70) mmol/L Calcium (8.5-10.1) mg/dl Total Bilirubin (0.2-1) mg/dl AST (15-37) U/L ALT (12-78) U/L Alkaline Phosphatase (45-117) U/L Troponin I (0-0.045) ng/ml Total Protein (6.4-8.2) gm/dl Albumin (3.4-5.0) gm/dl Globulin (2.5-4.0) gm/dl Albumin/Globulin Ratio (0.9-2) Specimen Hemolysis Administered Medications Discontinued Medications Piperacillin Sod/Tazobactam Sod (Zosyn) 4.5 gm in 120 mls @ 240 mls/hr IV NOW ONE Stop: 01/04/19 22:26 Last Infusion: 01/05/19 00:05 Dose: 0 mls/hr Documented by: [id number] Admin: 01/04/19 23:10 Dose: 240 mls/hr Documented by: [id number] Vancomycin HCl 1,500 mg/ (Sodium Chloride) 530 mls @ 200 mls/hr IV NOW ONE Stop: 01/05/19 00:35 Last Admin: 01/05/19 00:05 Dose: 200 mls/hr Documented by: [id number] Imaging Data Radiologist's Impression: Radiology results as stated below per my review and the radiologist's interpretation: CT HEAD: No acute intracranial hemorrhage, mass effect or edema. No evidence of acute cortical stroke. Periventricular small vessel ischemic change. No midline shift or hydrocephalus. Diffuse parenchymal atrophy. Atherosclerotic calcifications of the carotid siphons and vertebrobasilar art eries. Benign basal ganglia dystrophic calcifications. Visualized sinuses and mastoid air cells are clear. Impression: No evidence of acute intracranial pathology. Diffuse involutional changes and chronic ischemic small vessel white matter disease. Radiologist: Job Kang M.D. Study ready at 23:09 and initial results transmitted at 23:21 XR chest 1V portable CLINICAL HISTORY: 68 years-old Male presenting with weak, fever. TECHNIQUE: Portable upright AP view of the chest was obtained. COMPARISON: 10/09/2018. FINDINGS: Atherosclerosis of the aortic arch. Cardiac silhouette enlarged. Pulmonary vascular prominence and diffuse intralobular septal thickening. Patchy opacities with a mid to basilar predominance. Persistently mildly low lung volumes. Trace bilateral pleural effusions are not excluded. No large pneumothorax. Degenerative changes of the thoracic spine. Cervical fusion hardware noted. Cholecystectomy clips noted. IMPRESSION: 1. Bilateral infiltrates could represent multifocal pneumonia. However, there is also an element of volume overload and congestive change making mild pulmonary edema also likely. Infection and edema could be concurrently present. Electronically signed by: Puma Castro M.D. 01/04/2019 9:51 PM Discharge Plan Visit Data Chief Complaint: Hypertension Stated Complaint: HIGH TEMPERATURE, HIGH BP, SWEATS ED Provider: Rivera Deal Discharge Problem: Pneumonia, Altered mental status Forms Stand Alone Forms: My [facility] [employer] Prescriptions Prescriptions: No Action Lantus U-100 Insulin 100 unit/mL Solution 20 - 24 unit SUBCUT QAM RF: 0 calcium acetate 667 mg Tablet 1,334 mg PO TIDM RF: 0 aspirin [Aspir-81] 81 mg Tablet,Delayed Release (Dr/Ec) 81 mg PO QPM RF: 0 meclizine 25 mg Tablet 25 mg PO DIRECTED PRN (Reason: Dizziness) RF: 0 dutasteride 0.5 mg Capsule 0.5 mg PO QAM RF: 0 rosuvastatin 10 mg Tablet 10 mg PO QPM RF: 0 ProRenal 8 mg iron-800 mcg-1,000 unit tablet 1 tab PO QAM RF: 0 metoprolol succinate [Toprol XL] 50 mg tablet extended release 24 hr 50 mg PO QAM RF: 0 clopidogrel [Plavix] 75 mg tablet 75 mg PO QAM RF: 0 nortriptyline 25 mg capsule 25 mg PO QPM RF: 0 Entresto 24-26 mg tablet 1 tab PO BID Qty: 60 RF: 0 diphenhydramine HCl [Benadryl] 25 mg Capsule 50 mg PO QAM RF: 0 levocetirizine [Xyzal] 5 mg Tablet 5 mg PO DAILY RF: 0 Discharge Problem: Pneumonia Qualifiers: Pneumonia type: due to unspecified organism Laterality: bilateral Lung location: unspecified part of lung Qualified Code(s): J18.9 - Pneumonia, unspecified organism Altered mental status Qualifiers: Altered mental status type: unspecified Qualified Code(s): R41.82 - Altered mental status, unspecified The scribe's documentation has been prepared under my direction and personally reviewed by me in its entirety. I confirm that the note above accurately reflects all work, treatment, procedures, and medical decision making performed by me.
[2019-01-05] MEDS ORDERED: PIPERACILL/TAZOBAC CONSULT ACTIVE PRN (02:40)
[2019-01-05] MEDS ORDERED: ONDANSETRON INJ 2 MG/ML 2 ML VIAL IV PRN (02:40)
[2019-01-05] MEDS ORDERED: HYDROCORTISONE SOD SUCCINATE 100 MG/2 ML VIAL IV SCH (02:45)
--- NOTE | 2019-01-05 02:53 | History & Physical Report ---
Date of Service January 05, 2019 Assessment & Plan (1) Multifocal pneumonia: Patient is relatively immunocompromised. Vancomycin IV per pharmacokinetic monitoring. Zosyn 4.5 g IV every 12 hours. Duonebs every 4 hours while awake and every 2 hours when necessary.. Present on Admission?: Yes (2) Altered mental status: Decreased responsiveness secondary to multifocal pneumonia and decreased oral intake. Present on Admission?: Yes (3) Coronary artery disease: CAD/hypertension/ischemic cardiomyopathy- Medications will be temporarily on hold until he is more alert to take them orally. Present on Admission?: Yes (4) Ischemic cardiomyopathy: See above Present on Admission?: Yes (5) ESRD (end stage renal disease) on dialysis: Family reports she typically gets home HD 5 days/week. We will consult his controls technician Dr. Poe. Present on Admission?: Yes (6) Multiple sclerosis: Has been on Solu-Medrol treatment dose within the past year. Placed on stress dose hydrocortisone 100 mg IV every 8 hours Present on Admission?: Yes (7) Hypertension: See above Present on Admission?: Yes (8) Diabetes: Patient will be n.p.o. until treatment improves. Decrease Lantus insulin from 24-10 units subcu every morning. Place on Accu-Cheks before meals and at bedtime with Humalog coverage per scale Present on Admission?: Yes (9) Agitation: Family reports that the patient typically becomes very agitated in hospital when he wakes up and his family is not around. Have Lorazepam 1 mg IV every 6 hours and Haldol 5 mg IM every 6 hours to be used if needed Present on Admission?: Yes History of Present Illness Chief Complaint: The patient is unable to contribute to the HPI or review of systems due to altered mental state. Patient is brought to the emergency department due to report by family of progressively worsening weakness over the past week, with sweats, chills and more difficulty breathing. Primary Care Provider: Elyse Smith The patient is a 68-year-old male with past medical history including multiple sclerosis, CAD, CHF, ischemic cardiomyopathy, ESRD on HD, who presents to the emergency department with worsening confusion and decreased responsiveness, with fevers, chills and sweats over the past week. Family reports that the patient has a Doppler scheduled for tomorrow to assess his fistula due to concerns from his controls technician Dr. Poe about a potential infection. In the emergency department, work-up included a chest x-ray, which shows extensive multifocal pneumonia. Allergies Allergy/AdvReac Type Severity Reaction Status Date / Time No Known Allergies Allergy Verified 01/04/19 22:17 Home Medications Home Medications Medication Instructions Recorded Confirmed Type Lantus U-100 Insulin 20 - 24 unit SUBCUT QAM 09/13/18 01/04/19 History aspirin [Aspir-81] 81 mg PO QPM 09/13/18 01/04/19 History calcium acetate 1,334 mg PO TIDM 09/13/18 01/04/19 History dutasteride 0.5 mg PO QAM 09/13/18 01/04/19 History meclizine 25 mg PO DIRECTED PRN 09/13/18 01/04/19 History rosuvastatin 10 mg PO QPM 09/13/18 01/04/19 History sacubitril-valsartan [Entresto] 1 tab PO BID #60 tab 09/29/18 01/04/19 Rx clopidogrel [Plavix] 75 mg PO QAM 10/09/18 01/04/19 History metoprolol succinate [Toprol XL] 50 mg PO QAM 10/09/18 01/04/19 History vit B,C-iron mlv-VN-K1-zinc ox 1 tab PO QAM 10/09/18 01/04/19 History [ProRenal] nortriptyline 25 mg PO QPM 11/11/18 01/04/19 History diphenhydramine HCl [Benadryl] 50 mg PO QAM 01/04/19 01/04/19 History levocetirizine [Xyzal] 5 mg PO DAILY 01/04/19 01/04/19 History Past Med/Surg History Social History Preferred Language: Salvadorean Communication Ability: Effective Manager Home Healthcare Required: No Beliefs That Will Affect Care: None marital status: Current Living Situation: Spouse current occupational status: retired Other Information That Helps Us Care for You: No Feels Safe at Home: Yes Safety Concerns: Feels Safe At This Time Smoking Status: Never smoker Do You Dip or Chew Tobacco: No ; Second Hand Exposure: No ; Hx Alcohol Use: No Hx Substance Use: No Review of Systems Review of Systems: Unobtainable due to cognitive status Physical Exam Physical Exam: The patient is unresponsive, normocephalic and atraumatic, lying in bed and in no acute distress. HEENT--PERRL, EOMI, mucous membranes and oropharynx dry. Neck--supple. No JVD. No bruits. Thyroid normal, trachea midline, no adenopathy. Heart--normal S1 and S2. No murmurs, rubs or gallops. Lungs--coarse breath sounds throughout, overall diminished. Abdomen--normal bowel sounds and soft. Nontender. Nondistended. Extremities--no cyanosis or clubbing. No edema. There are good distal pulses b/l. Dermatologic--normal skin turgor, normal color, no abnormal lymph nodes, no rash. Neurologic--cranial nerves II through XII grossly intact. Rheumatologic--limited exam Psychiatric--unresponsive Results & Data Vital Signs (Past 12 Hours) Vital Signs Temp Pulse Pulse Resp BP BP Pulse Ox 01/05/19 02:16 95 H 20 154/83 H 98 01/05/19 01:40 86 L 01/05/19 01:10 96 H 20 162/98 H 95 01/05/19 00:05 99 H 20 162/84 H 98 01/04/19 23:13 101 H 18 161/97 H 97 01/04/19 20:46 96 01/04/19 20:22 98.1 F 105 H 24 150/81 H 92 Laboratory Results Laboratory Results WBC 7.27 K/uL (4.8-10.8) 01/04/19 22:27 RBC 3.63 M/uL (4.7-6.1) L 01/04/19 22:27 Hgb 10.5 g/dL (14.0-18.0) L 01/04/19 22:27 Hct 31.6 % (42-52) L 01/04/19 22:27 MCV 87.1 fL (80-100) 01/04/19 22:27 MCH 28.9 pg (25-34) 01/04/19 22:27 MCHC 33.2 g/dL (32-36) 01/04/19 22:27 RDW Std Deviation 62.4 fL (36.4-46.3) H 01/04/19 22:27 RDW Coeff of Leo 19.4 % (11.5-14.5) H 01/04/19 22:27 Plt Count 133 K/uL (130-400) 01/04/19 22: MPV 11.1 fL (7.4-10.4) H 01/04/19 22: Immature Gran % (Auto) 0.3 % 01/04/19 22: Neut % (Auto) 70.4 % 01/04/19: Lymph % (Auto) 14.2 % 01/04/19 22: [place] % (Auto) 13.5 % 01/04/19 22: Eos % (Auto) 1.2 % 01/04/19: Baso % (Auto) 0.4 % 01/04/19: Immature Gran # (Auto) 0.02 K/uL (0.00-0.02) 01/04/19 22: Neut # (Auto) 5.12 K/uL (1.4-6.5) 01/04/19: Lymph # (Auto) 1.03 K/uL (1.2-3.4) L 01/04/19: [place] # (Auto) 0.98 K/uL (0.11-0.59) H 01/04/19 22: Eos # (Auto) 0.09 K/uL (0-0.5) 01/04/19: Baso # (Auto) 0.03 K/uL (0-0.2) 01/04/19 22: Absolute Nucleated RBC Cancelled 01/04/19 20:00 Nucleated RBC % (auto) Cancelled 01/04/19 20:00 Neutrophils % (Manual) Cancelled 01/04/19 20:00 Band Neutrophils % Cancelled 01/04/19 20:00 Lymphocytes % (Manual) Cancelled 01/04/19 20:00 Prolymphocyte % Cancelled 01/04/19 20:00 Reactive Lymphs % (Man) Cancelled 01/04/19 20:00 Monocytes % (Manual) Cancelled 01/04/19 20:00 Eosinophils % (Manual) Cancelled 01/04/19 20:00 Basophils % (Manual) Cancelled 01/04/19 20:00 Metamyelocytes % (Man) Cancelled 01/04/19 20:00 Myelocytes % (Man) Cancelled 01/04/19 20:00 Promyelocytes % (Man) Cancelled 01/04/19 20:00 Blast Cells % (Manual) Cancelled 01/04/19 20:00 Plasma Cell % (Manual) Cancelled 01/04/19 20:00 Other Cells % Cancelled 01/04/19 20:00 Nucleated RBC % Cancelled 01/04/19 20:00 Neutrophils # (Manual) Cancelled 01/04/19 20:00 Band Neutrophils # Cancelled 01/04/19 20:00 Total Absolute Neuts Cancelled 01/04/19 20:00 Lymphocytes # (Manual) Cancelled 01/04/19 20:00 Prolymphocyte # Cancelled 01/04/19 20:00 Reactive Lymphs # Cancelled 01/04/19 20:00 Total Abs Lymphocytes Cancelled 01/04/19 20:00 Monocytes # (Manual) Cancelled 01/04/19 20:00 Eosinophils # (Manual) Cancelled 01/04/19 20:00 Basophils # (Manual) Cancelled 01/04/19 20:00 Metamyelocytes # (Man) Cancelled 01/04/19 20:00 Myelocytes # (Manual) Cancelled 01/04/19 20:00 Promyelocytes # (Man) Cancelled 01/04/19 20:00 Blast Cells # (Man) Cancelled 01/04/19 20:00 Plasma Cell # (Manual) Cancelled 01/04/19 20:00 Other Cells # Cancelled 01/04/19 20:00 Nucleated RBCs # (Man) Cancelled 01/04/19 20:00 Hypersegmented Neuts Cancelled 01/04/19 20:00 Hyposegmented Neuts Cancelled 01/04/19 20:00 Hypogranular Neuts Cancelled 01/04/19 20:00 Large Granular Lymphs Cancelled 01/04/19 20:00 # Lrg Granular Lymphs Cancelled 01/04/19 20:00 Hairy Cells Cancelled 01/04/19 20:00 Smudge Cells Cancelled 01/04/19 20:00 Toxic Granulation Cancelled 01/04/19 20:00 Toxic Vacuolation Cancelled 01/04/19 20:00 Dohle Bodies Cancelled 01/04/19 20:00 Ana Rods Cancelled 01/04/19 20:00 Platelet Estimate Cancelled 01/04/19 20:00 Hypogranular Platelets Cancelled 01/04/19 20:00 Clumped Platelets Cancelled 01/04/19 20:00 Giant Platelets Cancelled 01/04/19 20:00 Platelet Satelliting Cancelled 01/04/19 20:00 RBC Morphology Cancelled 01/04/19 20:00 Polychromasia Cancelled 01/04/19 20:00 Hypochromasia Cancelled 01/04/19 20:00 Poikilocytosis Cancelled 01/04/19 20:00 Basophilic Stippling Cancelled 01/04/19 20:00 Anisocytosis Cancelled 01/04/19 20:00 Microcytosis Cancelled 01/04/19 20:00 Macrocytosis Cancelled 01/04/19 20:00 Spherocytes Cancelled 01/04/19 20:00 Pappenheimer Bodies Cancelled 01/04/19 20:00 Sickle Cells Cancelled 01/04/19 20:00 Target Cells Cancelled 01/04/19 20:00 Tear Drop Cells Cancelled 01/04/19 20:00 Ovalocytes Cancelled 01/04/19 20:00 Stomatocytes Cancelled 01/04/19 20:00 Bynum-Hobbs Bodies Cancelled 01/04/19 20:00 Echinocytes Cancelled 01/04/19 20:00 Acanthocytes (Spur) Cancelled 01/04/19 20:00 Rouleaux Cancelled 01/04/19 20:00 RBC Agglutinates Cancelled 01/04/19 20:00 Schistocytes Cancelled 01/04/19 20:00 RBC Morph Comment Cancelled 01/04/19 20:00 Sezary Cell Cancelled 01/04/19 20:00 PT 12.7 Seconds (9.0-12.0) H 01/04/19 21:20 INR 1.3 (0.9-1.1) H 01/04/19 21:20 APTT 40.3 Seconds (21.0-31.0) H 01/04/19 21:20 PTT Ratio 1.5 01/04/19 21:20 ABG pH 7.48 (7.35-7.45) H 01/04/19 23:47 ABG pCO2 40 mmHg (35-46) 01/04/19 23:47 ABG pO2 114 mm/Hg (80-95) H 01/04/19 23:47 ABG HCO3 30 mmol/L (19-24) H 01/04/19 23:47 ABG O2 Saturation 98.0 % (90-95) H 01/04/19 23:47 ABG Base Excess 5.7 mEq/L (-9-1.8) H 01/04/19 23:47 Javier Test POS (Pos) 01/04/19 23:47 Barometric Pressure 733.7 mm/Hg 01/04/19 23:47 Oxygen Given 3 L 01/04/19 23:47 Sodium 136 mmol/L (136-145) 01/04/19 21:21 Potassium 3.7 mmol/L (3.5-5.1) 01/04/19 21:21 Chloride 99 mmol/L (98-107) 01/04/19 21:21 Carbon Dioxide 30 mmol/L (21-32) 01/04/19 21:21 Anion Gap 8.0 (3-11) 01/04/19 21:21 BUN 40 mg/dl (7-18) H 01/04/19 21:21 Creatinine 5.31 mg/dl (0.6-1.4) H* 01/04/19 21:21 Est Cr Clr Drug Dosing 14.2 ml/min 01/04/19 21:21 Est GFR ( Amer) 11.7 01/04/19 21:21 Est GFR (Non-Af Amer) 10.1 01/04/19 21:21 BUN/Creatinine Ratio 7.5 (10-20) L 01/04/19 21:21 Glucose 148 mg/dl (70-99) H 01/04/19 21:21 POC Lactic Acid Shailesh 1.12 mmol/L (0.90-1.70) 01/04/19 22:29 Calcium 10.1 mg/dl (8.5-10.1) 01/04/19 21:21 Total Bilirubin 0.4 mg/dl (0.2-1) 01/04/19 21:21 AST 16 U/L (15-37) 01/04/19 21:21 ALT 23 U/L (12-78) 01/04/19 21:21 Alkaline Phosphatase 73 U/L (45-117) 01/04/19 21:21 Troponin I 0.040 ng/ml (0-0.045) 01/04/19 21:21 Total Protein 6.7 gm/dl (6.4-8.2) 01/04/19 21:21 Albumin 2.5 gm/dl (3.4-5.0) L 01/04/19 21:21 Globulin 4.2 gm/dl (2.5-4.0) H 01/04/19 21:21 Albumin/Globulin Ratio 0.6 (0.9-2) L 01/04/19 21:21 Specimen Hemolysis 01/04/19 21:21 Diagnostic Findings [facility], [place] [phone] XRay Report Patient: TRINI GRANT Date: 01/04/19 MR#: [id number]: [address] Acct ID:[id number]: Date: 1950[facility] Zip: [place] [address] Age: 68Location: ED Sex: M Room/Bed: Att Phy:Diagnosis: HIGH TEMPERATURE, HIGH BP, SWEATS Luisa Phy: Elyse Smith MDService Date: 01/04/19 Fam Phy:Interpreting Phy: Puma Castro MD Admit Phy: Ordering Phy: Rivera Deal MD cc: ~ XR chest 1V portable CLINICAL HISTORY: 68 years-old Male presenting with weak, fever. TECHNIQUE: Portable upright AP view of the chest was obtained. COMPARISON: 10/09/2018. FINDINGS: Atherosclerosis of the aortic arch. Cardiac silhouette enlarged. Pulmonary vascular prominence and diffuse intralobular septal thickening. Patchy opacities with a mid to basilar predominance. Persistently mildly low lung volumes. Trace bilateral pleural effusions are not excluded. No large pneumothorax. Degenerative changes of the thoracic spine. Cervical fusion hardware noted. Cholecystectomy clips noted. IMPRESSION: 1. Bilateral infiltrates could represent multifocal pneumonia. However, there is also an element of volume overload and congestive change making mild pulmonary edema also likely. Infection and edema could be concurrently present. Electronically signed by: Puma Castro M.D. 01/04/2019 9:51 PM Dictated: 01/04/192149 Transcribed: 01/04/192149 Code Status & VTE Plan Code Status DNR/DNI VTE Prophylaxis Plan VTE Prophylaxis will be ordered: Yes PG Care Time/CCT Total # of Minutes Spent Total Time Spent with Patient: Total time spent is greater than 50% in coordination of care (as documented) at patient's floor/unit and/or counseling patient: (1) Altered mental status Altered mental status type: unspecified Qualified Code(s): R41.82 - Altered mental status, unspecified
[2019-01-05] MEDS ORDERED: LORazepam 1 MG/2 ML VIAL IV PRN (02:59)
[2019-01-05] MEDS ORDERED: HALOPERIDOL LACTATE 5 MG/ML 1 ML VIAL IM PRN (02:59)
[2019-01-05] MEDS ORDERED: DEXTROSE 50% 50 ML SYRINGE IV PRN (03:45)
[2019-01-05] MEDS ORDERED: CARBOHYDRATES FOR HYPOGLYCEMIA PO PRN (03:45)
[2019-01-05] MEDS ORDERED: GLUCOSE 10 TABS/TUBE PO PRN (03:45)
[2019-01-05] MEDS ORDERED: GLUCOSE 40% GEL 15 GM TUBE PO PRN (03:45)
[2019-01-05] MEDS ORDERED: GLUCAGON FOR INJ 1 MG VIAL SQ PRN (03:45)
[2019-01-05] MEDS: HYDROCORTISONE SOD 100 MG in SYRINGE 0 ML IV SCH ×2 (04:38→11:22)
--- NOTE | 2019-01-05 07:06 | CT Scan Report ---
HEAD CT NONCONTRAST CT DOSE: 614.27 mGy.cm HISTORY: fall. ams TECHNIQUE: Multiaxial CT images of the head were performed without the use of intravenous contrast. A utomated exposure control was utilized for this study. A dose lowering technique was utilized adheri ng to the principles of ALARA. Comparison: Head CT 11/25/2018. Findings: The paranasal sinuses and mastoid air cells are clear. The calvarium and skull base are int act. There is no mass, hematoma, midline shift, acute infarct. White matter hypodensity is nonspecifi c but suggestive of microvascular ischemic change. The ventricles and sulci demonstrate mild age-rela melita involutional changes. Impression: No acute intracranial abnormality. Atrophy and microvascular ischemic changes. Electronically signed by: Kory Jett M.D. 01/05/2019 7:04 AM
[2019-01-05] MEDS: PIPERACILLIN/TAZOBACTAM 4.5 GM in DEXTROSE 5% 100 ML IV SCH ×2 (08:11→20:27)
[2019-01-05] MEDS: INSULIN GLARGINE SOLOSTAR 100 UNITS/ML 3 ML PEN SQ SCH (08:46)
[2019-01-05] MEDS ORDERED: ENOXAPARIN INJ 40 MG/0.4 ML SYR SQ SCH (09:00)
[2019-01-05] MEDS: HEPARIN SOD 5,000 UNIT/0.5 ML VIAL SQ SCH ×2 (09:38→20:27)
--- NOTE | 2019-01-05 09:50 | Nephrology Consultation ---
Date of Consultation January 05, 2019 Assessment & Plan (1) ESRD (end stage renal disease) on dialysis: 68 y o M with ESRD due to diabetic nephropathy, has been on home hemodialysis 5 times weekly. Admitted to the hospital with multifocal pneumonia vs pulmonary edema. Has been becoming progressively weak, lethargic and has been having poor p.o. intake and losing weight over last few weeks. Dialysis has been regular volume status, blood pressure, electrolyte has been acceptable. Progressive worsening of overall health status over last few weeks could be secondary to multiple factors including multiple myeloma, end-stage renal disease status and others. Pneumonia can certainly contribute as well. -- as blood pressure, electrolyte and volume status acceptable, will plan on holding dialysis today --agree with continuing on empiric antibiotic for pneumonia, hopefully patient will start to improve clinically as he starts responding to antibiotic. However, in next few days if clinically patient does not show any improvement may need to discuss about goals of care with family as reported patient never wanted dialysis to begin with and quality of life has also been important to him and his family. --we start on Boost , renal cap once patient able to take orally --avoid calcium binders, will check phosphate and a.m. a phosphate elevated will start on non calcium binders -- dose medications for GFR less than 10 --Avoid IV fluid --SANDRA with dialysis for hemoglobin has been 11 With follow Thank you for allowing me to participate in your patient's care. It was a pleasure to see Phill (2) Hypertension: (3) Hypercalcemia: (4) Anemia: (5) Altered mental status: (6) Multifocal pneumonia: History of Present Illness Reason for Consultation: End-stage renal disease on home hemodialysis. Attending Physician: Ilya Llanes MD History of Present Illness Naveen Bravo is a 68 Y O gentlemen with ESRD, hypertension, multiple sclerosis brought to ER yesterday his family due to progressive lethargy, weakness and change in mental status over last few days to weeks. He was admitted with diagnosis of possible multifocal pneumonia versus pulmonary congestion. Nephrology consult was requested to manage end-stage renal disease while in hospital. Phill was brought to the hospital yesterday by his family as he has been getting progressively weak over last few weeks. His appetite has been poor and he has been barely eating and has been losing weight, recently his EDW was decreased. In ER he was found to be febrile, tachycardic. Chest x-ray showed multifocal pneumonia versus pulmonary edema. He was started on vancomycin and Zosyn empirically. CT head was negative. Phill has ESRD due to diabetic nephropathy on home hemodialysis 5 x per week (off Wednesday and Wednesday) for 1h53hhe via left BC AVF with 15 g blunt needle using buttonhole technique. He still has some residual kidney function. He makes 1-2 cups of urine per day according to his . There is no reported recent change in urine output. There were no complications with dialysis. He has typically required minimal UF with HD. Net UF was 0.3 L. he had dialysis yesterday. Currently blood pressure, electrolyte and volume status acceptable. His reports he becoming progressively weak over last few weeks. Per , before he was started on dialysis he himself did not want to start on dialysis however his and family convinced him to start on dialysis. He has MS but has not been on any treatment since he was started on dialysis. Medical history is notable for hypertension, multiple sclerosis, BPH with elevated PSA, anemia of CKD, hyperphosphatemia, and a history of diverticulosis requiring partial colectomy with ostomy. Currently he is lethergic and somnolent, barely opening eyes. Allergies Allergy/AdvReac Type Severity Reaction Status Date / Time No Known Allergies Allergy Verified 01/04/19 22:17 Home Medications Home Medications Medication Instructions Recorded Confirmed Type Lantus U-100 Insulin 20 - 24 unit SUBCUT QAM 09/13/18 01/04/19 History aspirin [Aspir-81] 81 mg PO QPM 09/13/18 01/04/19 History calcium acetate 1,334 mg PO TIDM 09/13/18 01/04/19 History dutasteride 0.5 mg PO QAM 09/13/18 01/04/19 History meclizine 25 mg PO DIRECTED PRN 09/13/18 01/04/19 History rosuvastatin 10 mg PO QPM 09/13/18 01/04/19 History sacubitril-valsartan [Entresto] 1 tab PO BID #60 tab 09/29/18 01/04/19 Rx clopidogrel [Plavix] 75 mg PO QAM 10/09/18 01/04/19 History metoprolol succinate [Toprol XL] 50 mg PO QAM 10/09/18 01/04/19 History vit B,C-iron bsn-GR-I1-zinc ox 1 tab PO QAM 10/09/18 01/04/19 History [ProRenal] nortriptyline 25 mg PO QPM 11/11/18 01/04/19 History diphenhydramine HCl [Benadryl] 50 mg PO QAM 01/04/19 01/04/19 History levocetirizine [Xyzal] 5 mg PO DAILY 01/04/19 01/04/19 History Patient History Social History Preferred Language: Croatian Communication Ability: Effective Health Promotion Educator Required: No Beliefs That Will Affect Care: None marital status: Current Living Situation: Spouse current occupational status: retired Feels Safe at Home: Yes Smoking Status: Never smoker Second Hand Exposure: No ; Hx Alcohol Use: No Hx Substance Use: No Review of Systems Review of Systems: All systems reviewed & are unremarkable except as noted in HPI & below Physical Exam Constitutional: + ill appearing and + lethargic Eyes: PERRL, conjunctivae normal, anicteric sclerae ENMT: external ear and nose normal, oropharynx normal Ears: no hearing impairment Neck: trachea midline Respiratory: normal respiratory effort; no cough Auscultation: + rales Cardiovascular: RRR, no murmur, no edema Gastrointestinal (Abdomen): normal bowel sounds, soft, nontender, no hepatosplenomegaly Percussion/Palpation: abdomen nontender, no guarding and abdomen not rigid Musculoskeletal: Extremities: extremities normal to inspection Gait: normal gait Skin: no rashes, warm and dry Neurologic: + confused and + obtunded Psychiatric: Orientation: + not oriented to place Results & Data Vital Signs (Past 12 Hours) Vital Signs Temp Pulse Pulse Resp BP BP Pulse Ox 01/05/19 07:35 37.2 C 97 H 20 158/86 H 94 01/05/19 02:40 36.6 C 99 H 16 161/87 H 94 01/05/19 02:16 95 H 20 154/83 H 98 01/05/19 01:40 86 L 01/05/19 01:10 96 H 20 162/98 H 95 01/05/19 00:05 99 H 20 162/84 H 98 01/04/19 23:13 101 H 18 161/97 H 97 PG Care Time/CCT Total # of Minutes Spent Total Time Spent with Patient: Total time spent is greater than 50% in coordination of care (as documented) at patient's floor/unit and/or counseling patient: (1) Altered mental status Altered mental status type: unspecified Qualified Code(s): R41.82 - Altered mental status, unspecified
[2019-01-05 12:05] LABS: Appearance Urine Cloudy (Clear); Bacteria Urine Automated Negative (Negative); Bilirubin Urine Negative (Negative); Blood Urine Trace (Negative); Color Urine Yellow; Epithelial Cell Urine Auto 20-30 /lpf (0-5); Glucose Urine UA 2+ (Negative); Ketones Urine Trace (Negative); Leukocyte Esterase Urine Negative (Negative); Nitrite Urine Negative (Negative); RBC Urine Automated >30 /hpf (0-4); Specific Gravity Urine 1.019 (1.000-1.030); Urobilinogen Urine Negative (Negative)
[2019-01-05 12:08] LABS: Protein Urine 3+ (Negative)
[2019-01-05 12:09] LABS: Sulfosalicylic Acid Urine Positive (Negative)
--- NOTE | 2019-01-05 14:58 | Ultrasound Report ---
US hemodialysis access CLINICAL HISTORY: Swelling of left arteriovenous fistula COMPARISON STUDY: None. FINDINGS: Real-time sonographic imaging of the left upper extremity fistula was performed with repres entative images submitted. The fistula appears patent. Elevated peak systolic velocities at the anast omosis with the brachial artery measuring up to 455 cm/s. This is consistent with an area of hemodyna mically significant stenosis. No surrounding fluid collections or hematoma identified. IMPRESSION: 1. No thrombus identified within the left upper extremity fistula. 2. Elevated peak systolic velocities at the anastomosis with the brachial artery measuring up to 455 cm/s. This is consistent with an area of hemodynamically significant stenosis. Electronically signed by: Kory Jett M.D. 01/05/2019 2:57 PM
--- NOTE | 2019-01-05 15:26 | History & Physical Bridge Note ---
Date of Service January 05, 2019 History & Physical Bridge Note Patient seen and examined today. He has not been doing well at home per his since his last discharge when he had a stroke. He can no longer stand, and his is unable to care for him at home. Per his , he never wanted to start dialysis in the first place and also never wanted to be in a alf. If he cannot get to the point of standing on his own, his feels she may stop dialysis and let him pass away. - Continue antibiotics, though I will stop vancomycin as his MRSA swab is negative. - Stop stress-dose steroids as he was not on steroids recently, and I do not think he is HPA suppressed. - Palliative care consult
--- NOTE | 2019-01-05 15:34 | Pharmacy Report ---
Pharmacy Abx Initial Consult - Date of Service January 05, 2019 - Pharmacy Dosing Scope Date of Consult: 01/05/19 Consultation requested by: Dr. Mcclure Pharmacy is consulted to initiate Vancomycin and Zosyn IV dosing therapy, order appropriate labs and adjust drug dose/frequency. - Subjective The patient is a 68 year old M admitted on 01/05/19 01:49. - Objective Height: 5 ft 9 in Weight: 73.8 kg Vital Signs (Past 12hrs): Vital Signs Temp Pulse Resp BP Pulse Ox 01/05/19 15:13 36.4 C L 93 H 20 175/77 H 98 01/05/19 11:24 36.8 C 92 H 20 160/83 H 96 01/05/19 07:35 37.2 C 97 H 20 158/86 H 94 Lab Results (24hrs): Laboratory Tests (24 Hours) 01/05/19 01/04/19 01/04/19 11:13 22:27 21:21 WBC 7.27 Neut # (Auto) 5.12 Creatinine 5.31 H* Est Cr Clr Drug Dosing 14.2 Procalcitonin 2.30 H 01/04/19 20:00 WBC Cancelled Neut # (Auto) Cancelled Creatinine Est Cr Clr Drug Dosing Procalcitonin Micro Results: 01/04/19 22:27 Aerobic Blood Culture - Pending Blood Anaerobic Blood Culture - Pending 01/04/19 20:06 Aerobic Blood Culture - Pending Blood Anaerobic Blood Culture - Pending - Risk Factors for Resistance * Chronic dialysis within the past 30 days (Patient gets dialysis 5 days a week) - Assessment & Plan Assessment 68 year old M who presents to the ED with worsening confusion and fever over the past week. Patient receives dialysis 5 days a week. Concern for possible infection of his fistula. Chest x-ray shows multifocal pneumonia. Blood cultures x 2 currently pending. Plan Vancomycin and Zosyn for treatment of multifocal pneumonia Vancomycin IV * Loading dose: 1500 mg (20 mg/kg) * Additional doses will be based on patient's random vanc level * Goal trough level for PNA: 15 to 20 mcg/mL * Random level ordered for 01/06/19 with AM labs Piperacillin/tazobactam * 4.5 g bolus administered over 30 minutes, then 4.5 g IV extended infusion every 12 hours for CrCl 20 mL/min or less and dialysis. Pharmacy will continue to follow and will adjust dose/frequency as necessary. Thank you.
[2019-01-06 06:26] LABS: Hematocrit (blood only) 33.9 % (42-52); Hemoglobin 10.8 g/dL (14.0-18.0); Mean Corpuscular Hemoglobin 28.2 pg (25-34); Mean Corpuscular Hgb Conc 31.9 g/dL (32-36); Mean Corpuscular Volume 88.5 fL (80-100); Mean Platelet Volume 10.5 fL (7.4-10.4); Platelet Count 216 K/uL (130-400); RDW Standard Deviation 60.9 fL (36.4-46.3); Red Blood Count 3.83 M/uL (4.7-6.1); White Blood Count 7.21 K/uL (4.8-10.8)
[2019-01-06 06:49] LABS: Anisocytosis Present; Basophils # (auto) 0.02 K/uL (0-0.2); Basophils % (auto) 0.3 %; Echinocytes 1+; Eosinophils # (auto) 0.01 K/uL (0-0.5); Eosinophils % (auto) 0.1 %; Immature Granulocytes # (auto) 0.03 K/uL (0.00-0.02); Immature Granulocytes % (auto) 0.4 %; Lymphocytes # (auto) 1.18 K/uL (1.2-3.4); Lymphocytes % (auto) 16.4 %; Monocytes # (auto) 0.69 K/uL (0.11-0.59); Monocytes % (auto) 9.6 %; Neutrophils # (auto) 5.28 K/uL (1.4-6.5); Neutrophils % (auto) 73.2 %; Platelet Estimate Normal (Normal)
[2019-01-06] MEDS ORDERED: SODIUM CHLORIDE 0.9% 1000ML 1,000 ML IV PRN (07:00)
[2019-01-06 07:01] LABS: Albumin Level 2.3 gm/dl (3.4-5.0); BUN Creatinine Ratio 10.1 (10-20); Calcium 10.1 mg/dl (8.5-10.1); Creatinine Clr Calc Pharmacy 9.6 ml/min; Est GFR (African American) 8.1; Phosphorus 5.6 mg/dl (2.5-4.9); Potassium 3.8 mmol/L (3.5-5.1)
--- NOTE | 2019-01-06 08:11 | Nephrology Progress Note ---
Date of Service January 06, 2019 Assessment & Plan (1) ESRD (end stage renal disease) on dialysis: 68 y o M with ESRD due to diabetic nephropathy, has been on home hemodialysis 5 times weekly. Admitted to the hospital with multifocal pneumonia vs pulmonary edema. Has been becoming progressively weak, lethargic and has been having poor p.o. intake and losing weight over last few weeks. Dialysis has been regular volume status, blood pressure, electrolyte has been acceptable. Progressive worsening of overall health status over last few weeks could be secondary to multiple factors including multiple myeloma, end-stage renal disease status and others. Pneumonia can certainly contribute as well. AVF with stenosis overall doing better today, still somewhat confused. --agree with continuing on empiric antibiotic for pneumonia, hopefully patient will start to improve clinically as he starts responding to antibiotic. --HD today for 3 h --we start on Boost , renal cap once patient able to take orally --start on Renvela 1tab with each meal -- dose medications for GFR less than 10 --Avoid IV fluid --SANDRA with dialysis for hemoglobin has been 11 With follow (2) Hypertension: (3) Hypercalcemia: (4) Anemia: (5) Altered mental status: (6) Multifocal pneumonia: Subjective Don was seen and examined this am, still somewhat confused but overall doing better, appetite better. BP fair, electrolyte, volume status acceptable. Review of Systems Review of Systems: All systems reviewed & are unremarkable except as noted in HPI & below Physical Exam Constitutional: WD/WN, vitals as above + ill appearing; no acute distress Neck: trachea midline Respiratory: normal respiratory effort; no cough Auscultation: + rales Cardiovascular: RRR, no murmur, no edema Gastrointestinal (Abdomen): normal bowel sounds, soft, nontender, no hepatosplenomegaly Percussion/Palpation: abdomen nontender, no guarding and abdomen not rigid Neurologic: awake and + confused Psychiatric: Orientation: + not oriented to place Results & Data Vital Signs (Past 12 Hours) Vital Signs Temp Pulse Resp BP Pulse Ox 01/06/19 03:00 36.4 C L 94 H 20 149/34 H 99 01/05/19 23:28 36.8 C 97 H 18 160/63 H 96 PG Care Time/CCT Total # of Minutes Spent Total Time Spent with Patient: Total time spent is greater than 50% in coordination of care (as documented) at patient's floor/unit and/or counseling patient: (1) Altered mental status Altered mental status type: unspecified Qualified Code(s): R41.82 - Altered mental status, unspecified
--- NOTE | 2019-01-06 08:53 | Palliative Care Consultation ---
Date of Consultation January 06, 2019 History of Present Illness Attending Physician: Ilya Llanes MD Allergies Allergy/AdvReac Type Severity Reaction Status Date / Time No Known Allergies Allergy Verified 01/04/19 22:17 Home Medications Home Medications Medication Instructions Recorded Confirmed Type Lantus U-100 Insulin 20 - 24 unit SUBCUT QAM 09/13/18 01/04/19 History aspirin [Aspir-81] 81 mg PO QPM 09/13/18 01/04/19 History calcium acetate 1,334 mg PO TIDM 09/13/18 01/04/19 History dutasteride 0.5 mg PO QAM 09/13/18 01/04/19 History meclizine 25 mg PO DIRECTED PRN 09/13/18 01/04/19 History rosuvastatin 10 mg PO QPM 09/13/18 01/04/19 History sacubitril-valsartan [Entresto] 1 tab PO BID #60 tab 09/29/18 01/04/19 Rx clopidogrel [Plavix] 75 mg PO QAM 10/09/18 01/04/19 History metoprolol succinate [Toprol XL] 50 mg PO QAM 10/09/18 01/04/19 History vit B,C-iron [id number]-zinc ox 1 tab PO QAM 10/09/18 01/04/19 History [ProRenal] nortriptyline 25 mg PO QPM 11/11/18 01/04/19 History diphenhydramine HCl [Benadryl] 50 mg PO QAM 01/04/19 01/04/19 History levocetirizine [Xyzal] 5 mg PO DAILY 01/04/19 01/04/19 History Patient History Social History Preferred Language: Peruvian Communication Ability: Impaired 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 Beliefs That Will Affect Care: None marital status: Current Living Situation: Spouse current occupational status: retired Feels Safe at Home: Yes Smoking Status: Never smoker Second Hand Exposure: No ; Hx Alcohol Use: No Hx Substance Use: No Results & Data Vital Signs (Past 12 Hours) Vital Signs Temp Pulse Resp BP Pulse Ox 01/06/19 08:19 36.8 C 99 H 18 175/81 H 96 01/06/19 03:00 36.4 C L 94 H 20 149/34 H 99 01/05/19 23:28 36.8 C 97 H 18 160/63 H 96 PG Care Time/CCT Total # of Minutes Spent Total Time Spent with Patient: Total time spent is greater than 50% in coordination of care (as documented) at patient's floor/unit and/or counseling patient:
[2019-01-06] MEDS: INSULIN GLARGINE SOLOSTAR 100 UNITS/ML 3 ML PEN SQ SCH (09:51)
[2019-01-06] MEDS: HEPARIN SOD 5,000 UNIT/0.5 ML VIAL SQ SCH ×2 (09:52→20:04)
[2019-01-06] MEDS ORDERED: LIDOCAINE/PRILOCAINE 2.5% EA CRM EXT ONE (10:00)
--- NOTE | 2019-01-06 10:11 | Consultation ---
Date of Consultation January 06, 2019 Assessment & Plan (1) ESRD (end stage renal disease) on dialysis: Pt with functioning LUE AVF. No abnormalities noted on exam. Elevated velocities at anastomosis may be irrelevant. Recommend use AVF for HD today. Will be happy to reevaluate if there are problems running his HD. Please call if needed. Patient was seen, examined, and chart reviewed. Agree with exam and treatment plan of the Vascular PA. Present on Admission?: Yes History of Present Illness Reason for Consultation: LUE AVF assessment Attending Physician: Ilya Llanes MD History of Present Illness 68 yo m with multiple medical problems, including ESRD on home hemodialysis and MS, seen in consultation today for eval of LUE AVF. Pt slightly confused and unable to give meaningful hpi presently. His is present, who give most of the hx. Pt known to Dr Velazquez for LUE brachiobasilic AVF creation and subsequent transposition in 2016. Pt's states he has been doing home HD through [facility] for about 18 months. As far as she knows there have been no problems with flow. She was concerned about an area of swelling that occurred and then resolved recently. Currently admitted for pneumonia, so admits fever, lethargy, and confusion. Denies vomiting, chest pain, SOB, rest pain, other complaints. Pt scheduled for inpt HD today. HD access US demostrates increased velocities at anastomosis, however, no flow volume calculated. Allergies Allergy/AdvReac Type Severity Reaction Status Date / Time No Known Allergies Allergy Verified 01/04/19 22:17 Home Medications Home Medications Medication Instructions Recorded Confirmed Type Lantus U-100 Insulin 20 - 24 unit SUBCUT QAM 09/13/18 01/04/19 History aspirin [Aspir-81] 81 mg PO QPM 09/13/18 01/04/19 History calcium acetate 1,334 mg PO TIDM 09/13/18 01/04/19 History dutasteride 0.5 mg PO QAM 09/13/18 01/04/19 History meclizine 25 mg PO DIRECTED PRN 09/13/18 01/04/19 History rosuvastatin 10 mg PO QPM 09/13/18 01/04/19 History sacubitril-valsartan [Entresto] 1 tab PO BID #60 tab 09/29/18 01/04/19 Rx clopidogrel [Plavix] 75 mg PO QAM 10/09/18 01/04/19 History metoprolol succinate [Toprol XL] 50 mg PO QAM 10/09/18 01/04/19 History vit B,C-iron txi-[id number]-zinc ox 1 tab PO QAM 10/09/18 01/04/19 History [ProRenal] nortriptyline 25 mg PO QPM 11/11/18 01/04/19 History diphenhydramine HCl [Benadryl] 50 mg PO QAM 01/04/19 01/04/19 History levocetirizine [Xyzal] 5 mg PO DAILY 01/04/19 01/04/19 History Patient History Medical History Diabetes (Chronic) Proteinuria (Resolved) Multiple sclerosis (Chronic) Hypertension (Chronic) BPH (benign prostatic hyperplasia) (Chronic) Abnormal LFTs (liver function tests) (Chronic) Renal failure (ARF), acute on chronic (Chronic) Cervical spondylosis with myelopathy Concussion and edema of cervical spinal cord, initial encounter ESRD (end stage renal disease) on dialysis CHI (closed head injury) (Inactive) CKD (chronic kidney disease) (Inactive) Hypertension (Inactive) Hypoglycemia (Inactive) Syncope (Inactive) Surgical History Status post colostomy (Chronic) Family History Mother Multiple sclerosis Social History Preferred Language: Croatian Communication Ability: Impaired Mine 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 Beliefs That Will Affect Care: None marital status: Current Living Situation: Spouse current occupational status: retired Feels Safe at Home: Yes Smoking Status: Never smoker Second Hand Exposure: No ; Hx Alcohol Use: No Hx Substance Use: No Review of Systems Review of Systems: Unobtainable due to cognitive status (partially obtainable through ) Physical Exam Constitutional: WD/WN, vitals as above well developed, well nourished, + ill appearing, + thin, + frail appearing, well groomed, cooperative and comfortable; not in distress and not combative Eyes: PERRL, conjunctivae normal, anicteric sclerae EOM intact bilaterally ENMT: Ears: no hearing impairment Nose: no nasal discharge Neck: trachea midline; no neck crepitus and neck nontender Respiratory: able to speak in complete sentences; does not use accessory muscles and no cough Auscultation: + diminished lung sounds; no rhonchi and no wheezes Cardiovascular: Rate/Rhythm: regular rhythm and + tachycardic Heart Sounds: no gallop and no murmur Vessels: femoral pulses present, posterior tibial pulses present, dorsalis pedis pulses present, brachial pulses present and radial pulses present; no carotid bruit, no femoral bruit and + abnormal peripheral pulses Extremities: normal capillary refill and + AV fistula (LUE AVF with excellent, uniform thrill throughout. [facility] noted. no s); no edema Chest (Breasts): Chest: normal inspection of chest Gastrointestinal (Abdomen): normal bowel sounds, soft, nontender, no hepatosplenomegaly Inspection/Auscultation: abdomen normal to inspection and normal bowel sounds; abdomen not distended Percussion/Palpation: abdomen soft; abdomen nontender, no guarding, abdomen not rigid and no abdominal mass Musculoskeletal: Head/Neck/Chest: normocephalic, head atraumatic and neck supple Extremities: extremities normal to inspection and + limited ROM of extremities; + abnormal strength Skin: no rashes, warm and dry normal turgor; no rashes, no lesions, no wound, no erythema, no eschar and no excoriations Neurologic: moves all extremities, awake and + confused; no focal motor deficits Speech / Cognition: no expressive aphasia and no receptive aphasia Motor/Sensory: + sensory deficit; no tremor Cranial Nerves: EOM intact bilaterally and normal facial strength Psychiatric: Orientation: alert, oriented to person, oriented to place and cooperative Apperance: appropriately dressed and appeared stated age Affect: euthymic affect Thought Process: + thought process not linear or logical Cognition: recent memory grossly intact, remote memory grossly intact, attention grossly intact and language grossly intact Estimated Intelligence: average estimated intelligence Results & Data Vital Signs (Past 12 Hours) Vital Signs Temp Pulse Resp BP Pulse Ox 01/06/19 08:19 36.8 C 99 H 18 175/81 H 96 01/06/19 03:00 36.4 C L 94 H 20 149/34 H 99 01/05/19 23:28 36.8 C 97 H 18 160/63 H 96
--- NOTE | 2019-01-06 10:43 | Palliative Care Progress Note ---
Date of Service January 06, 2019 Subjective The patient is a 68-year-old male who has a medical history of multiple sclerosis, CAD, CHF, ischemic cardiomyopathy, ESRD on HD and is a patient of Dr. Poe, who presented to the ED with increased lethargy and worsening confusion. The patient was diagnosed with multifocal pneumonia. The hospitalist met with the patient and his , Saida, and they have a goal of him being able to stand on his own over the next three days. The expectation was set that if he is unable to gain enough strength to be able to stand and pivot, they would like to have a conversation with the Palliative Care team and assist with decision making and goals of care. After speaking with Dr. Llanes, we will see this patient on Wednesday January 09, 2019 for a full initial consultation. Thank you kindly for referring this patient to the palliative care team. Official consult to follow. Results & Data Vital Signs (Past 12 Hours) Vital Signs Temp Pulse Resp BP Pulse Ox 01/06/19 08:19 36.8 C 99 H 18 175/81 H 96 01/06/19 03:00 36.4 C L 94 H 20 149/34 H 99 01/05/19 23:28 36.8 C 97 H 18 160/63 H 96 PG Care Time/CCT Total # of Minutes Spent Total Time Spent with Patient: Total time spent is greater than 50% in coordination of care (as documented) at patient's floor/unit and/or counseling patient:
[2019-01-06 11:55] LABS: Hepatitis B Surface Ab Quant 13.98 mIU/mL (>or=10mIU/mL Immune); Hepatitis B Surface Antibody Immune
[2019-01-06 12:06] LABS: Hepatitis B Surface Antigen Neg (Neg)
[2019-01-06] MEDS: PIPERACILLIN/TAZOBACTAM 4.5 GM in DEXTROSE 5% 100 ML IV SCH (15:42)
[2019-01-06] MEDS ORDERED: MECLIZINE HCL 25 MG TAB PO PRN (16:08)
--- NOTE | 2019-01-06 16:12 | Hospitalist Progress Note ---
Date of Service January 06, 2019 Assessment & Plan (1) Multifocal pneumonia: CXR showed bilateral infiltrates that could represent multifocal pneumonia. Procalcitonin was 2.3. Multifocal pneumonia, possibly MRSA or gram- negative. - Vanc stopped on 01/06 for negative MRSA nasal screen - Some element of volume overload also contributing, though given his significant improvement in mental status in 1 day on abx, I think pneumonia is likely. - HD as able per nephrology - Continue Zosyn - Duonebs PRN (2) Altered mental status: Metabolic encephalopathy secondary to multifocal pneumonia (3) Ischemic cardiomyopathy: Echo in 08/2018 showed EF 25-30%. - CXR on 01/04 showed element of volume overload. - Removing fluid with HD; he does make some urine, so could consider some Lasix potentially -> Will discuss with nephrology in the AM - Continue ASA, Plavix, beta-verona, Entresto, statin (4) Coronary artery disease: No chest pain. - Continue ASA, Plavix, beta-verona, Entresto, statin as above (5) ESRD (end stage renal disease) on dialysis: Family reports he typically gets home HD 5 days/week. - Appreciate nephrology input - HD per nephrology (6) Multiple sclerosis: During hospitalization of 08/2018, his neurologist (Dr. Finn) reported he had not been to his office in >1 year. Plan was to re-establish care after the hospitalization. Unclear whether he has been seen there since. - No acute inpatient needs (7) Hypertension: See above (8) Diabetes: A1c was 4.5% in 08/2018. Given his ESRD, A1c is not an ideal measure of his control however. - Continue Lantus insulin at 10 units daily - Sliding scale insulin (9) Agitation: Family reports that the patient typically becomes very agitated in hospital when he wakes up and his family is not around. - Lorazepam and Haldol PRN (10) DVT prophylaxis: Heparin 5000 units BID Subjective More alert and awake today comparatively. No focal complaints. Review of Systems Review of Systems: All systems reviewed & are unremarkable except as noted in HPI & below Physical Exam Constitutional: WD/WN, vitals as above Eyes: EOM intact bilaterally; no conjunctival abnormality ENMT: external ear and nose normal, oropharynx normal Neck: trachea midline, no thyromegaly normal visual inspection Respiratory: normal respiratory effort, lungs clear to auscultation no respiratory distress Cardiovascular: RRR, no murmur, no edema Gastrointestinal (Abdomen): Inspection/Auscultation: abdomen normal to inspection; abdomen not distended Musculoskeletal: no cyanosis or clubbing, extremities motor strength 5/5 Skin: L AVF with good bruit. Mild swelling. Neurologic: moves all extremities and awake Psychiatric: Orientation: alert, oriented to person and cooperative Results & Data Vital Signs (Past 12 Hours) Vital Signs Temp Pulse Pulse Pulse Resp BP BP 01/06/19 16:00 96 H 01/06/19 15:53 36.4 C L 99 H 22 156/59 H 01/06/19 14:15 36.9 C 81 145/77 H 01/06/19 14:00 99 H 133/62 01/06/19 13:40 75 113/52 L 01/06/19 13:20 98 H 167/86 H 01/06/19 13:00 97 H 145/69 H 01/06/19 12:40 48 L 94/31 L 01/06/19 12:20 77 175/72 H 01/06/19 12:00 93 H 191/85 H 01/06/19 11:40 95 H 174/58 H 01/06/19 11:20 94 H 184/88 H 01/06/19 10:57 36.9 C 95 H 01/06/19 08:19 36.8 C 99 H 18 175/81 H 01/06/19 08:00 96 H Pulse Ox 01/06/19 16:00 01/06/19 15:53 98 01/06/19 14:15 01/06/19 14:00 01/06/19 13:40 01/06/19 13:20 01/06/19 13:00 01/06/19 12:40 01/06/19 12:20 01/06/19 12:00 01/06/19 11:40 01/06/19 11:20 01/06/19 10:57 01/06/19 08:19 96 01/06/19 08:00 PG Care Time/CCT Total # of Minutes Spent Total Time Spent with Patient: Total time spent is greater than 50% in coordination of care (as documented) at patient's floor/unit and/or counseling patient: (1) Altered mental status Altered mental status type: unspecified Qualified Code(s): R41.82 - Altered mental status, unspecified
[2019-01-06] MEDS: CALCIUM ACETATE 667 MG CAP PO SCH (16:58)
[2019-01-06] MEDS ORDERED: ALUMINUM/MAGNESIUM/SIMETH (MAALOX MAX) 30 ML UDC PO STA (18:39)
[2019-01-06] MEDS ORDERED: ACETAMINOPHEN 325 MG TAB PO PRN (18:59)
[2019-01-06] MEDS: ROSUVASTATIN CALCIUM 10 MG TAB PO SCH (20:03)
[2019-01-06] MEDS: ASPIRIN 81 MG ECTAB PO SCH (20:03)
[2019-01-06] MEDS: SACUBITRIL-VALSARTAN 24-26 MG TAB PO SCH (20:04)
[2019-01-06] MEDS: NORTRIPTYLINE HCL 25 MG CAP PO SCH (20:04)
[2019-01-07] MEDS: PIPERACILLIN/TAZOBACTAM 4.5 GM in DEXTROSE 5% 100 ML IV SCH ×2 (03:53→15:57)
[2019-01-07 06:06] LABS: Hematocrit (blood only) 35.1 % (42-52); Hemoglobin 11.4 g/dL (14.0-18.0); Mean Corpuscular Hemoglobin 28.2 pg (25-34); Mean Corpuscular Hgb Conc 32.5 g/dL (32-36); Mean Corpuscular Volume 86.9 fL (80-100); Mean Platelet Volume 9.8 fL (7.4-10.4); Platelet Count 226 K/uL (130-400); RDW Standard Deviation 60.3 fL (36.4-46.3); Red Blood Count 4.04 M/uL (4.7-6.1); White Blood Count 4.94 K/uL (4.8-10.8)
[2019-01-07 06:52] LABS: BUN Creatinine Ratio 8.9 (10-20); Calcium 9.7 mg/dl (8.5-10.1); Creatinine Clr Calc Pharmacy 13.6 ml/min; Est GFR (African American) 12.4; Est GFR (Non-African American) 10.7; Magnesium 2.3 mg/dl (1.8-2.4); Potassium 3.5 mmol/L (3.5-5.1)
[2019-01-07] MEDS ORDERED: SODIUM CHLORIDE 0.9% 1000ML 1,000 ML IV PRN (07:00)
[2019-01-07] MEDS: CALCIUM ACETATE 667 MG CAP PO SCH ×3 (07:52→17:34)
[2019-01-07] MEDS: SACUBITRIL-VALSARTAN 24-26 MG TAB PO SCH ×2 (07:53→20:24)
[2019-01-07] MEDS: HEPARIN SOD 5,000 UNIT/0.5 ML VIAL SQ SCH ×2 (07:54→20:22)
[2019-01-07] MEDS: INSULIN GLARGINE SOLOSTAR 100 UNITS/ML 3 ML PEN SQ SCH (07:54)
[2019-01-07] MEDS: CLOPIDOGREL BISULFATE 75 MG TAB PO SCH (07:55)
[2019-01-07] MEDS: METOPROLOL SUCC 50MG EXT REL TAB PO SCH ×2 (07:56→08:20)
--- NOTE | 2019-01-07 10:45 | Dialysis Progress Note ---
Date of Service January 07, 2019 Assessment & Plan (1) ESRD (end stage renal disease) on dialysis: 68 y o M with ESRD due to diabetic nephropathy, has been on home hemodialysis 5 times weekly. Admitted to the hospital with multifocal pneumonia vs pulmonary edema. Has been becoming progressively weak, lethargic and has been having poor p.o. intake and losing weight over last few weeks. Dialysis has been regular volume status, blood pressure, electrolyte has been acceptable. Progressive worsening of overall health status over last few weeks could be secondary to multiple factors including multiple myeloma, end-stage renal disease status and others. Pneumonia can certainly contribute as well. AVF with stenosis On ultrasound however has not been having any issues with cannulation or any prolonged bleeding. Evaluated by vascular surgery who did not feel any intervention needed at this time. overall doing well. --HD today for 3 h -- Continue onon Boost , renal cap, Renvela 1tab with each meal -- dose medications for GFR less than 10 --Avoid IV fluid --SANDRA with dialysis for hemoglobin has been 11 With follow (2) Hypertension: (3) Hypercalcemia: (4) Anemia: (5) Altered mental status: (6) Multifocal pneumonia: Subjective Don was seen and examined during dialysis this morning. He is much more awake, alert and orientated. Appetite decent, denies any specific symptoms. Has been tolerating dialysis well. Review of Systems Review of Systems: All systems reviewed & are unremarkable except as noted in HPI & below Physical Exam Constitutional: WD/WN, vitals as above + ill appearing; no acute distress Neck: trachea midline Respiratory: normal respiratory effort; no cough Auscultation: + rales Cardiovascular: RRR, no murmur, no edema Neurologic: awake and + confused Psychiatric: Orientation: + not oriented to place Results & Data Vital Signs (Past 12 Hours) Vital Signs Temp Pulse Pulse Pulse Resp BP BP 01/07/19 10:20 97 H 169/94 H 01/07/19 10:00 98 H 176/96 H 01/07/19 09:40 102 H 199/100 H 01/07/19 09:20 100 H 190/86 H 01/07/19 09:09 36.7 C 101 H 101 H 198/96 H 01/07/19 07:18 36.6 C 105 H 19 194/102 H 01/06/19 23:09 36.4 C L 94 H 16 176/71 H Pulse Ox 01/07/19 10:20 01/07/19 10:00 01/07/19 09:40 01/07/19 09:20 01/07/19 09:09 01/07/19 07:18 95 01/06/19 23:09 97 (1) Altered mental status Altered mental status type: unspecified Qualified Code(s): R41.82 - Altered mental status, unspecified
--- NOTE | 2019-01-07 16:29 | Hospitalist Progress Note ---
Date of Service January 07, 2019 Assessment & Plan (1) Multifocal pneumonia: CXR showed bilateral infiltrates that could represent multifocal pneumonia. Procalcitonin was 2.3. Multifocal pneumonia, possibly MRSA or gram- negative. - Vanc stopped on 01/06 for negative MRSA nasal screen - Some element of volume overload also contributing, though given his significant improvement in mental status in 1 day on abx, I think pneumonia is likely. - HD as able per nephrology - Continue Zosyn - Duonebs PRN (2) Altered mental status: Metabolic encephalopathy secondary to multifocal pneumonia (3) Ischemic cardiomyopathy: Echo in 08/2018 showed EF 25-30%. - CXR on 01/04 showed element of volume overload. - Removing fluid with HD; he does make some urine, so could consider some Lasix potentially - Continue ASA, Plavix, beta-verona, Entresto, statin (4) Coronary artery disease: On 01/06, had some very vague, waxing and waning chest pain. He could not describe it well to me, but did deny any radiation or other correlated symptoms such as diaphoresis, nausea, etc. Troponins were negative and EKGs were stable. - Treating for MSK and some GERD symptoms with Tylenol and ranitidine - Continue ASA, Plavix, beta-verona, Entresto, statin as above (5) ESRD (end stage renal disease) on dialysis: He typically gets home HD 5 days/week. - Appreciate nephrology input - HD per nephrology (6) Multiple sclerosis: During hospitalization of 08/2018, his neurologist (Dr. Finn) reported he had not been to his office in >1 year. Plan was to re-establish care after the hospitalization. Unclear whether he has been seen there since. - No acute inpatient needs (7) Hypertension: See above (8) Diabetes: A1c was 4.5% in 08/2018. Given his ESRD, A1c is not an ideal measure of his control however. - Continue Lantus insulin at 10 units daily - Sliding scale insulin (9) Agitation: Family reports that the patient typically becomes very agitated in h ospital when he wakes up and his family is not around. - Lorazepam and Haldol PRN (10) DVT prophylaxis: Heparin 5000 units BID Subjective Feeling some better this morning. His waxing and waning chest pain is not bother him right now. He is doing well otherwise. His reports he forgot he was on dialysis a bit ago, and he also tries to move his left arm with me while still on HD. Review of Systems Review of Systems: All systems reviewed & are unremarkable except as noted in HPI & below Physical Exam Constitutional: WD/WN, vitals as above Eyes: EOM intact bilaterally; no conjunctival abnormality ENMT: external ear and nose normal, oropharynx normal Neck: trachea midline, no thyromegaly normal visual inspection Respiratory: normal respiratory effort, lungs clear to auscultation no respiratory distress Cardiovascular: Rate/Rhythm: regular rhythm and + tachycardic Heart Sounds: normal S1 and normal S2 Gastrointestinal (Abdomen): Inspection/Auscultation: abdomen normal to inspection; abdomen not distended Musculoskeletal: no cyanosis or clubbing, extremities motor strength 5/5 LUE fistula with some mild swelling; currently accessed Neurologic: moves all extremities and awake Psychiatric: Orientation: alert, oriented to person and cooperative; + not oriented to place Results & Data Vital Signs (Past 12 Hours) Vital Signs Temp Pulse Pulse Resp BP BP Pulse Ox 01/07/19 15:43 36.4 C L 95 H 20 168/88 H 94 01/07/19 15:00 36.5 C 101 H 20 199/69 H 92 01/07/19 12:10 36.9 C 97 H 97 H 174/86 H 174/86 H 01/07/19 11:40 98 H 163/80 H 01/07/19 11:20 97 H 130/85 01/07/19 11:00 95 H 150/100 H 01/07/19 10:40 94 H 135/97 01/07/19 10:20 97 H 169/94 H 01/07/19 10:00 98 H 176/96 H 01/07/19 09:40 102 H 199/100 H 01/07/19 09:20 100 H 190/86 H 01/07/19 09:09 36.7 C 101 H 101 H 198/96 H 01/07/19 07:18 36.6 C 105 H 19 194/102 H 95 PG Care Time/CCT Total # of Minutes Spent Total Time Spent with Patient: Total time spent is greater than 50% in coordination of care (as documented) at patient's floor/unit and/or counseling patient: (1) Altered mental status Altered mental status type: unspecified Qualified Code(s): R41.82 - Altered mental status, unspecified
[2019-01-07] MEDS ORDERED: HydrALAZINE HCL 20 MG/ML VIAL IV PRN (16:31)
[2019-01-07] MEDS: ASPIRIN 81 MG ECTAB PO SCH (20:22)
[2019-01-07] MEDS: ROSUVASTATIN CALCIUM 10 MG TAB PO SCH (20:23)
[2019-01-07] MEDS: NORTRIPTYLINE HCL 25 MG CAP PO SCH (20:23)
[2019-01-08 05:47] LABS: Hemoglobin 12.2 g/dL (14.0-18.0); Mean Corpuscular Hemoglobin 28.2 pg (25-34); Mean Corpuscular Volume 85.5 fL (80-100); Mean Platelet Volume 10.5 fL (7.4-10.4); Platelet Count 242 K/uL (130-400); RDW Coefficient of Variation 18.4 % (11.5-14.5); Red Blood Count 4.33 M/uL (4.7-6.1); White Blood Count 5.27 K/uL (4.8-10.8)
[2019-01-08] MEDS: PIPERACILLIN/TAZOBACTAM 4.5 GM in DEXTROSE 5% 100 ML IV SCH ×2 (05:59→16:28)
[2019-01-08 06:26] LABS: BUN Creatinine Ratio 8.1 (10-20); Calcium 10.4 mg/dl (8.5-10.1); Creatinine Clr Calc Pharmacy 16.1 ml/min; Est GFR (African American) 15.2; Est GFR (Non-African American) 13.1; Potassium 3.7 mmol/L (3.5-5.1)
[2019-01-08] MEDS: CLOPIDOGREL BISULFATE 75 MG TAB PO SCH (09:48)
[2019-01-08] MEDS: METOPROLOL SUCC 50MG EXT REL TAB PO SCH (09:48)
[2019-01-08] MEDS: CALCIUM ACETATE 667 MG CAP PO SCH ×3 (09:49→16:31)
[2019-01-08] MEDS: SACUBITRIL-VALSARTAN 24-26 MG TAB PO SCH ×2 (09:49→20:35)
[2019-01-08] MEDS: INSULIN GLARGINE SOLOSTAR 100 UNITS/ML 3 ML PEN SQ SCH (09:49)
--- NOTE | 2019-01-08 09:49 | Nephrology Progress Note ---
Date of Service January 08, 2019 Assessment & Plan (1) ESRD (end stage renal disease) on dialysis: 68 y o M with ESRD due to diabetic nephropathy, has been on home hemodialysis 5 times weekly. Admitted to the hospital with multifocal pneumonia vs pulmonary edema. Has been becoming progressively weak, lethargic and has been having poor p.o. intake and losing weight over last few weeks. Dialysis has been regular volume status, blood pressure, electrolyte has been acceptable. Progressive worsening of overall health status over last few weeks could be secondary to multiple factors including multiple myeloma, end-stage renal disease status and others. Pneumonia can certainly contribute as well. AVF with stenosis On ultrasound however has not been having any issues with cannulation or any prolonged bleeding. Evaluated by vascular surgery who did not feel any intervention needed at this time. overall doing well. -- increase metoprolol to 100 mg /d --recommend swallow eval, Pt/OT -- Continue on Boost , renal cap, Renvela 1tab with each meal -- dose medications for GFR less than 10 --Avoid IV fluid With follow (2) Hypertension: (3) Hypercalcemia: (4) Anemia: (5) Altered mental status: (6) Multifocal pneumonia: Subjective Don was seen and examined this morning with his at bedside. He is much more awake, alert but not orientated to place or person. Appetite decent however reports difficulty swallowing solid food and chocking episodes with dinner last night. BP has been high. Review of Systems Review of Systems: All systems reviewed & are unremarkable except as noted in HPI & below Physical Exam Constitutional: WD/WN, vitals as above + ill appearing; no acute distress Respiratory: normal respiratory effort; no cough Auscultation: + rales Cardiovascular: RRR, no murmur, no edema Neurologic: awake and + confused Psychiatric: Orientation: + not oriented to place Results & Data Vital Signs (Past 12 Hours) Vital Signs Temp Pulse Resp BP Pulse Ox 01/08/19 09:39 88 175/83 H 01/08/19 07:16 36.5 C 104 H 16 191/99 H 96 01/08/19 00:08 36.6 C 97 H 16 161/75 H 95 PG Care Time/CCT Total # of Minutes Spent Total Time Spent with Patient: Total time spent is greater than 50% in coordination of care (as documented) at patient's floor/unit and/or counseling patient: (1) Altered mental status Altered mental status type: unspecified Qualified Code(s): R41.82 - Altered mental status, unspecified
[2019-01-08] MEDS: HEPARIN SOD 5,000 UNIT/0.5 ML VIAL SQ SCH ×2 (09:50→20:35)
[2019-01-08] MEDS ORDERED: METOPROLOL SUCC 50MG EXT REL TAB PO STA (10:12)
--- NOTE | 2019-01-08 15:15 | Hospitalist Progress Note ---
Date of Service January 08, 2019 Assessment & Plan (1) Multifocal pneumonia: CXR showed bilateral infiltrates that could represent multifocal pneumonia. Procalcitonin was 2.3. Multifocal pneumonia, possibly MRSA or gram- negative. - Vanc stopped on 01/06 for negative MRSA nasal screen - Some element of volume overload also contributing, though given his significant improvement in mental status in 1 day on abx, I think pneumonia is likely. Overall improved Not requiring supplemental O2 No evidence of sepsis There is likely chance this could be aspiration pneumonia given history of choking episode -Consult speech therapy for swallow evaluation - Continue Zosyn and convert to Augmentin likely tomorrow (2) Altered mental status: Metabolic encephalopathy secondary to multifocal pneumonia-continues but is somewhat improved reports he has had progressively worsening mentation for the last 3 months and that it was not really much worse when he got sick with this pneumonia (3) Ischemic cardiomyopathy: Echo in 08/2018 showed EF 25-30%. - CXR on 01/04 showed element of volume overload. - Removing fluid with HD; he does make some urine but not needing diuretics at this point - Continue ASA, Plavix, beta-verona, Entresto, statin (4) Coronary artery disease: On 01/06, had some very vague, waxing and waning chest pain. He could not describe it well to me, but did deny any radiation or other correlated symptoms such as diaphoresis, nausea, etc. Troponins were negative and EKGs were stable. - Treating for MSK and some GERD symptoms with Tylenol and ranitidine - Continue ASA, Plavix, beta-verona, Entresto, statin as above (5) ESRD (end stage renal disease) on dialysis: He typically gets home HD 5 days/week. - Appreciate nephrology input - HD per nephrology-plan for tomorrow -Follow BMP -Continue calcium acetate 3 times daily with meals (6) Multiple sclerosis: During hospitalization of 08/2018, his neurologist (Dr. Finn) reported he had not been to his office in >1 year. Plan was to re-establish care after the hospitalization. reports patient was seen by Dr. Finn however there is no medication or treatment that he can use at this point due to being on hemodialysis - No acute inpatient needs -Continue supportive care -PT/OT consults placed- reports that if he is able to transfer from bed to chair as before, she will continue him with his hemodialysis at home (7) Hypertension: Blood pressures uncontrolled -Nephrology recommends increasing metoprolol to 100 mg daily -Continue Entresto (8) Diabetes: A1c was 4.5% in 08/2018. Given his ESRD, A1c is not an ideal measure of his control however. - Continue Lantus insulin at 10 units daily - Sliding scale insulin (9) Agitation: Family reports that the patient typically becomes very agitated in hospital when he wakes up and his family is not around. - Lorazepam and Haldol PRN-these have not been given since admission (10) DVT prophylaxis: Heparin 5000 units BID Disposition-remain hospitalized, awaiting palliative care consultation on Wednesday as well as PT/OT/speech therapy All of these evaluations will play a role in his disposition. is strongly considering hospice Subjective reports that the patient had a bad choking episode last night on his food. He was then given a pured diet and now he refuses to eat it it is not palatable. She reports his mental status waxes and wanes from 1 minute to the next. Initially with me today, he was confused, however a few minutes later, he spoke very clearly and explained to me his choking episode and how he was concerned about his ability to swallow. He denies headache, denies chest pain or shortness of breath, denies cough, denies abdominal pain or nausea. He has not been out of bed but says that he really wants to try to get out of bed today. Review of Systems Review of Systems: All systems reviewed & are unremarkable except as noted in HPI & below Physical Exam Constitutional: + ill appearing and average body habitus; no acute distress Eyes: + anicteric sclerae ENMT: external ear and nose normal, oropharynx normal Neck: trachea midline, no thyromegaly Respiratory: Auscultation: + diminished lung sounds (At the bases bilaterally); no crackles and no rhonchi Cardiovascular: RRR, no murmur, no edema Gastrointestinal (Abdomen): normal bowel sounds, soft, nontender, no hepatosplenomegaly (With colostomy bag without any gas or stool in the left lower quadrant) Musculoskeletal: Extremities: extremities normal to inspection; no cyanosis and no clubbing Skin: no rashes, warm and dry Neurologic: moves all extremities (Has 4/5 strength throughout all extremities) and awake Psychiatric: Orientation: alert, oriented to person and cooperative; + not oriented to place and + not oriented to time Results & Data Vital Signs (Past 12 Hours) Vital Signs Temp Pulse Pulse Resp BP Pulse Ox 01/08/19 15:10 36.8 C 99 H 16 175/85 H 94 01/08/19 11:43 92 H 189/91 H 01/08/19 09:39 88 175/83 H 01/08/19 07:16 36.5 C 104 H 16 191/99 H 96 Laboratory Results 01/08/19 01/08/19 01/08/19 Range/Units 19:54 17:20 12:09 WBC (4.8-10.8) K/uL RBC (4.7-6.1) M/uL Hgb (14.0-18.0) g/dL Hct (42-52) % MCV (80-100) fL MCH (25-34) pg MCHC (32-36) g/dL RDW Std Deviation (36.4-46.3) fL RDW Coeff of Leo (11.5-14.5) % Plt Count (130-400) K/uL MPV (7.4-10.4) fL Sodium (136-145) mmol/L Potassium (3.5-5.1) mmol/L Chloride (98-107) mmol/L Carbon Dioxide (21-32) mmol/L Anion Gap (3-11) BUN (7-18) mg/dl Creatinine (0.6-1.4) mg/dl Est Cr Clr Drug Dosing ml/min Est GFR ( Amer) Est GFR (Non-Af Amer) BUN/Creatinine Ratio (10-20) Glucose (70-99) mg/dl POC Glucose 205 H 152 H 131 H (70-99) Calcium (8.5-10.1) mg/dl 01/08/19 01/08/19 01/08/19 Range/Units 07:58 05:15 05:15 WBC 5.27 (4.8-10.8) K/uL RBC 4.33 L (4.7-6.1) M/uL Hgb 12.2 L (14.0-18.0) g/dL Hct 37.0 L (42-52) % MCV 85.5 (80-100) fL MCH 28.2 (25-34) pg MCHC 33.0 (32-36) g/dL RDW Std Deviation 58.0 H (36.4-46.3) fL RDW Coeff of Leo 18.4 H (11.5-14.5) % Plt Count 242 (130-400) K/uL MPV 10.5 H (7.4-10.4) fL Sodium 134 L (136-145) mmol/L Potassium 3.7 (3.5-5.1) mmol/L Chloride 95 L (98-107) mmol/L Carbon Dioxide 27 (21-32) mmol/L Anion Gap 12.0 H (3-11) BUN 35 H (7-18) mg/dl Creatinine 4.27 H D (0.6-1.4) mg/dl Est Cr Clr Drug Dosing 16.1 ml/min Est GFR ( Amer) 15.2 Est GFR (Non-Af Amer) 13.1 BUN/Creatinine Ratio 8.1 L (10-20) Glucose 130 H (70-99) mg/dl POC Glucose 138 H (70-99) Calcium 10.4 H (8.5-10.1) mg/dl PG Care Time/CCT Total # of Minutes Spent Total Time Spent with Patient: Total time spent is greater than 50% in coordination of care (as documented) at patient's floor/unit and/or counseling patient: (1) Altered mental status Altered mental status type: unspecified Qualified Code(s): R41.82 - Altered mental status, unspecified
[2019-01-08] MEDS: ROSUVASTATIN CALCIUM 10 MG TAB PO SCH (20:34)
[2019-01-08] MEDS: NORTRIPTYLINE HCL 25 MG CAP PO SCH (20:35)
[2019-01-08] MEDS: ASPIRIN 81 MG ECTAB PO SCH (20:36)
[2019-01-09] MEDS: PIPERACILLIN/TAZOBACTAM 4.5 GM in DEXTROSE 5% 100 ML IV SCH ×2 (04:15→16:06)
[2019-01-09 06:45] LABS: BUN Creatinine Ratio 7.8 (10-20); Calcium 9.9 mg/dl (8.5-10.1); Creatinine Clr Calc Pharmacy 11.9 ml/min; Est GFR (African American) 10.6; Est GFR (Non-African American) 9.1; Potassium 4.4 mmol/L (3.5-5.1)
[2019-01-09] MEDS ORDERED: SODIUM CHLORIDE 0.9% 1000ML 1,000 ML IV PRN (07:00)
[2019-01-09] MEDS: CALCIUM ACETATE 667 MG CAP PO SCH ×3 (07:47→17:24)
--- NOTE | 2019-01-09 12:19 | Nephrology Progress Note ---
Date of Service January 09, 2019 Assessment & Plan (1) ESRD (end stage renal disease) on dialysis: 68 yo M with ESRD due to diabetic nephropathy on home hemodialysis admitted to the hospital with multifocal pneumonia vs pulmonary edema. Has been becoming progressively weak, lethargic and has been having poor p.o. intake and losing weight over last few weeks. Dialysis has been regular volume status, blood pressure, electrolyte has been acceptable. Progressive worsening of overall health status over last few weeks could be secondary to multiple factors including multiple myeloma, end-stage renal disease status and others. Pneumonia can certainly contribute as well. AVF with stenosis On ultrasound however has not been having any issues with cannulation or any prolonged bleeding. Evaluated by vascular surgery who did not feel any intervention needed at this time. HD orders entered into EMR and reviewed with nurse. Phill was seen and evaluated during hemodialysis. Qb adequate. Access pressure appropriate. BP is acceptable. Phill is tolerating an increased dose of metoprolol well. The patient continues to demonstrate some signs of dementia or intermittent confusion. Short term memory seems to be poor. (2) Hypertension: (3) Hypercalcemia: (4) Anemia: (5) Altered mental status: (6) Multifocal pneumonia: Subjective No acute events overnight. Phill was seen and evaluated during hemodialysis this morning. He was tolerating the treatment well. No complaints or concerns noted. Review of Systems Review of Systems: All systems reviewed & are unremarkable except as noted in HPI & below Physical Exam Constitutional: well developed; no acute distress Eyes: no scleral abnormality and no corneal abnormality ENMT: Mouth: no oral mucosal abnormality and oral mucous membranes not dry Neck: normal visual inspection and trachea midline Respiratory: normal respiratory effort Auscultation: lungs clear to auscultation bilaterally Cardiovascular: Rate/Rhythm: regular rate Heart Sounds: normal S1, normal S2 and + murmur Extremities: + AV fistula Gastrointestinal (Abdomen): Percussion/Palpation: abdomen soft; abdomen nontender Musculoskeletal: Extremities: no cyanosis and no clubbing Skin: normal turgor; no rashes Neurologic: Motor/Sensory: no tremor and no asterixis Psychiatric: Orientation: alert and oriented x 3 Results & Data Vital Signs (Past 12 Hours) Vital Signs Temp Pulse Pulse Pulse Resp BP BP 01/09/19 12:04 90 149/38 H 01/09/19 11:40 90 155/62 H 01/09/19 11:20 89 160/70 H 01/09/19 11:00 87 154/67 H 01/09/19 10:44 86 178/43 H 01/09/19 10:20 87 153/68 H 01/09/19 10:00 84 164/66 H 01/09/19 09:40 89 190/85 H 01/09/19 09:20 88 174/86 H 01/09/19 09:00 97 H 174/86 H 01/09/19 08:58 36.4 C L 88 01/09/19 07:20 36.3 C L 87 16 161/73 H Pulse Ox 01/09/19 12:04 01/09/19 11:40 01/09/19 11:20 01/09/19 11:00 01/09/19 10:44 01/09/19 10:20 01/09/19 10:00 01/09/19 09:40 01/09/19 09:20 01/09/19 09:00 01/09/19 08:58 01/09/19 07:20 95 PG Care Time/CCT Total # of Minutes Spent Total Time Spent with Patient: Total time spent is greater than 50% in coordination of care (as documented) at patient's floor/unit and/or counseling patient: (1) Altered mental status Altered mental status type: unspecified Qualified Code(s): R41.82 - Altered mental status, unspecified
[2019-01-09] MEDS: CLOPIDOGREL BISULFATE 75 MG TAB PO SCH (12:36)
[2019-01-09] MEDS: METOPROLOL SUCC 50MG EXT REL TAB PO SCH (12:36)
[2019-01-09] MEDS: SACUBITRIL-VALSARTAN 24-26 MG TAB PO SCH ×2 (12:36→20:00)
[2019-01-09] MEDS: HEPARIN SOD 5,000 UNIT/0.5 ML VIAL SQ SCH ×2 (12:37→20:00)
[2019-01-09] MEDS: INSULIN GLARGINE SOLOSTAR 100 UNITS/ML 3 ML PEN SQ SCH (12:37)
--- NOTE | 2019-01-09 13:44 | Palliative Care Consultation ---
Date of Consultation January 09, 2019 Assessment & Plan (1) Goals of care, counseling/discussion: -68 year old male patient with advanced multiple sclerosis, CAD, CHF, ischemic cardiomyopathy, ESRD 2/2 diabetic nephropathy, on home hemodialysis five days a week, htn, diverticulosis s/p partial colectomy with ostomy, and others, presented to the hospital with increased lethargy and worsening confusion. The patient was diagnosed with multifocal pneumonia and is on IV abx. Patient also has hx ischemic cardiomyopathy with EF 25-30%, CXR on admission showed volume overload and congestive change. His acute medical issues are changing, but patient still has progressed weakness and dysphagia related to progression of the MS. Apparently patient is unable to be on his MS medications due to them being dialyzed out anyway. Palliative care is consulted to discuss goals of care. -Met with patient in room 454, his Saida is at bedside. Patient appears weak and tired, but is awake and oriented. Blunted affect. Saida is pleasant and very helpful with history. -Saida states that a few weeks ago patient became extremely weak, unable to even stand and pivot to transfer from bed to chair, etc. He also has been having trouble with dysphagia at home due to the increased weakness. -Apparently patient had never wanted to start dialysis according to his living will, however, when it came time that his kidneys were no longer able to keep up, patient was still quite functional and had good quality of life, so the decision was made to start HD. He has tolerated dialysis well and is not ready to stop it yet. -The biggest issue is patient's increased weakness and his 's inability to continue caring for him 23/11. Saida stated that their grandson was having to come over in the morning before he got on the bus for school to help transfer patient to a chair, but then Saida was unable to transfer patient all day. Patient was having falls at home and Saida hurt her abdomen trying to lift him up. Another layer to this scenario is that the patient and his vowed that patient would never go into a alf, as patient watched his own mother who had multiple sclerosis in a alf at 42 years old after living there for 5 years. However, there may not be an option. -Patient's has attempted to contact [facility] on aging for help in the home, but they do not financially qualify for any free assistance, but also cannot afford private duty caregivers. -Plan is for patient to have PT/OT evaluations and possibly go to rehab pending their recommendation. He and his will use that time to determine whether or not this is his new baseline or if there is any room for improvement. states that if patient is at least able to stand an pivot, she could take him home. -We discussed the option of hospice care for future, they are not ready for hospice at this time but certainly open to discussing it and considering it in the future. -Unfortunately, [facility] prognosis is poor. Patient is have to have swallow evaluation done. He is adamant that he would NEVER want a feeding tube and this is reflected in his living will. -PPS 30%. (2) Multifocal pneumonia: (3) Ischemic cardiomyopathy: (4) ESRD (end stage renal disease) on dialysis: (5) Weakness: (6) Dysphagia: History of Present Illness Reason for Consultation: Goals of care Requesting Physician: Dr. Christelle Llanes Attending Physician: Brenda Campa MD History of Present Illness This 68 year old male patient with advanced multiple sclerosis, CAD, CHF, ischemic cardiomyopathy, ESRD 2/2 diabetic nephropathy, on home hemodialysis five days a week, htn, diverticulosis s/p partial colectomy with ostomy, and others, presented to the hospital with increased lethargy and worsening confusion. The patient was diagnosed with multifocal pneumonia and is on IV abx. Patient also has hx ischemic cardiomyopathy with EF 25-30%, CXR on admission showed volume overload and congestive change. His acute medical issues are changing, but patient still has progressed weakness and dysphagia related to progression of the MS. Apparently patient is unable to be on his MS medications due to them being dialyzed out anyway. Palliative care is consulted to discuss goals of care. Thank you kindly for this consult. Palliative care team will follow as needed. Allergies Allergy/AdvReac Type Severity Reaction Status Date / Time No Known Allergies Allergy Verified 01/04/19 22:17 Home Medications Home Medications Medication Instructions Recorded Confirmed Type Lantus U-100 Insulin 20 - 24 unit SUBCUT QAM 09/13/18 01/04/19 History aspirin [Aspir-81] 81 mg PO QPM 09/13/18 01/04/19 History calcium acetate 1,334 mg PO TIDM 09/13/18 01/04/19 History dutasteride 0.5 mg PO QAM 09/13/18 01/04/19 History meclizine 25 mg PO DIRECTED PRN 09/13/18 01/04/19 History rosuvastatin 10 mg PO QPM 09/13/18 01/04/19 History sacubitril-valsartan [Entresto] 1 tab PO BID #60 tab 09/29/18 01/04/19 Rx clopidogrel [Plavix] 75 mg PO QAM 10/09/18 01/04/19 History metoprolol succinate [Toprol XL] 50 mg PO QAM 10/09/18 01/04/19 History vit B,C-iron xfd-XV-[id number]-zinc ox 1 tab PO QAM 10/09/18 01/04/19 History [ProRenal] nortriptyline 25 mg PO QPM 11/11/18 01/04/19 History diphenhydramine HCl [Benadryl] 50 mg PO QAM 01/04/19 01/04/19 History levocetirizine [Xyzal] 5 mg PO DAILY 01/04/19 01/04/19 History Patient History Medical History Diabetes (Chronic) Proteinuria (Resolved) Multiple sclerosis (Chronic) Hypertension (Chronic) BPH (benign prostatic hyperplasia) (Chronic) Abnormal LFTs (liver function tests) (Chronic) Renal failure (ARF), acute on chronic (Chronic) Cervical spondylosis with myelopathy Concussion and edema of cervical spinal cord, initial encounter ESRD (end stage renal disease) on dialysis CHI (closed head injury) (Inactive) CKD (chronic kidney disease) (Inactive) Hypertension (Inactive) Hypoglycemia (Inactive) Syncope (Inactive) Surgical History Status post colostomy (Chronic) Family History Mother Multiple sclerosis Social History Preferred Language: Belarusian Communication Ability: Impaired Talent Acquisition Partner Required: No Beliefs That Will Affect Care: None marital status: Current Living Situation: Spouse current occupational status: retired Feels Safe at Home: Yes Smoking Status: Never smoker Second Hand Exposure: No ; Hx Alcohol Use: No Hx Substance Use: No Review of Systems Constitutional: + weakness Ear, Nose, Mouth, Throat: + dysphagia Respiratory: no dyspnea Cardiovascular: no chest pain and no edema Gastrointestinal: no abdominal pain and no nausea Musculoskeletal: + muscle weakness and + muscle atrophy Neurologic: + falls (2/2 increased weakness due to MS) Psychiatric: no anxiety Physical Exam Constitutional: + ill appearing (chronically) ENMT: external ear and nose normal, oropharynx normal Neck: normal visual inspection Respiratory: normal respiratory effort; no labored breathing Cardiovascular: Rate/Rhythm: regular rate Gastrointestinal (Abdomen): Inspection/Auscultation: abdomen normal to inspect ion and normal bowel sounds Neurologic: moves all extremities and awake Psychiatric: Orientation: alert and oriented x 3 Affect: + blunted affect Results & Data Vital Signs (Past 12 Hours) Vital Signs Temp Pulse Pulse Pulse Resp BP BP 01/09/19 12:10 36.6 C 88 151/54 H 01/09/19 12:04 90 149/38 H 01/09/19 11:40 90 155/62 H 01/09/19 11:20 89 160/70 H 01/09/19 11:00 87 154/67 H 01/09/19 10:44 86 178/43 H 01/09/19 10:20 87 153/68 H 01/09/19 10:00 84 164/66 H 01/09/19 09:40 89 190/85 H 01/09/19 09:20 88 174/86 H 01/09/19 09:00 97 H 174/86 H 01/09/19 08:58 36.4 C L 88 01/09/19 07:20 36.3 C L 87 16 161/73 H Pulse Ox 01/09/19 12:10 01/09/19 12:04 01/09/19 11:40 01/09/19 11:20 01/09/19 11:00 01/09/19 10:44 01/09/19 10:20 01/09/19 10:00 01/09/19 09:40 01/09/19 09:20 01/09/19 09:00 01/09/19 08:58 01/09/19 07:20 95 Time Spent Midlevel 70 minutes with >50% of the time spent at bedside with patient and family discussing condition and GOC.
--- NOTE | 2019-01-09 18:55 | Hospitalist Progress Note ---
Date of Service January 09, 2019 Assessment & Plan (1) Multifocal pneumonia: CXR showed bilateral infiltrates that could represent multifocal pneumonia. Procalcitonin was 2.3. Multifocal pneumonia, possibly MRSA or gram- negative. - Vanc stopped on 01/06 for negative MRSA nasal screen - Some element of volume overload also contributing, though given his significant improvement in mental status in 1 day on abx, I think pneumonia is likely. Overall improved Not requiring supplemental O2 No evidence of sepsis There is likely chance this could be aspiration pneumonia given history of choking episode -Consult speech therapy for swallow evaluation-appreciated--> recommends pureed moist diet, aspiration precautions - Continue Zosyn and convert to Augmentin in the AM (2) Altered mental status: Metabolic encephalopathy secondary to multifocal pneumonia-continues but is somewhat improved reports he has had progressively worsening mentation for the last 3 months and that it was not really much worse when he got sick with this pneumonia (3) Ischemic cardiomyopathy: Echo in 08/2018 showed EF 25-30%. - CXR on 01/04 showed element of volume overload. - Removing fluid with HD; he does make some urine but not needing diuretics at this point - Continue ASA, Plavix, beta-verona, Entresto, statin (4) Coronary artery disease: On 01/06, had some very vague, waxing and waning chest pain. He could not describe it well, but did deny any radiation or other correlated symptoms such as diaphoresis, nausea, etc. Troponins were negative and EKGs were stable. - Treating for MSK and some GERD symptoms with Tylenol and ranitidine - Continue ASA, Plavix, beta-verona, Entresto, statin as above (5) ESRD (end stage renal disease) on dialysis: He typically gets home HD 5 days/week. - Appreciate nephrology input - HD per nephrology-ha[place]on today with removal of 1000mL fluid -Follow BMP -Continue calcium acetate 3 times daily with meals (6) Multiple sclerosis: During hospitalization of 08/2018, his neurologist (Dr. Finn) reported he had not been to his office in >1 year. Plan was to re-establish care after the hospitalization. reports patient was seen by Dr. Finn however there is no medication or treatment that he can use at this point due to being on hemodialysis - No acute inpatient needs -Continue supportive care -PT/OT consults placed- reports that if he is able to transfer from bed to chair as before, she will continue him with his hemodialysis at home (7) Hypertension: Blood pressures uncontrolled, now improved with increased dose Toprol -continue increased dose of metoprolol to 100 mg daily -Continue Entresto (8) Diabetes: A1c was 4.5% in 08/2018. Given his ESRD, A1c is not an ideal measure of his control however. - Continue Lantus insulin at 10 units daily - Sliding scale insulin (9) Agitation: Family reports that the patient typically becomes very agitated in hospital when he wakes up and his family is not around. - Lorazepam and Haldol PRN-these have not been given since admission (10) DVT prophylaxis: Heparin 5000 units BID Disposition-remain hospitalized, apprecaite palliative care consultation -no plans for Hospice at this time POLST to be performed prior to dc PT/OT-consults placed again as he still has not had an evaluation after con sults placed 3 days ago All of these evaluations will play a role in his disposition Pt is agreeable to acute rehab at [facility] if necessary Subjective Pt still with waxing and waning mental status as per today, but seems more alert to me today. Says he is in the hospital, but doesn't know the town or the state, doesn't know the year. Denies any issues. Has been coughing today as per Review of Systems Review of Systems: All systems reviewed & are unremarkable except as noted in HPI & below Physical Exam Constitutional: average body habitus; no acute distress Eyes: + anicteric sclerae Neck: trachea midline, no thyromegaly Respiratory: Auscultation: + diminished lung sounds (At the bases bilaterally); no crackles and no rhonchi Cardiovascular: RRR, no murmur, no edema Gastrointestinal (Abdomen): normal bowel sounds, soft, nontender, no hepatosplenomegaly (With colostomy bag without gas and some stool in the left lower quadrant) Musculoskeletal: Extremities: extremities normal to inspection; no cyanosis and no clubbing Skin: no rashes, warm and dry Neurologic: moves all extremities (Has 4/5 strength throughout all extremities) and awake Psychiatric: Orientation: alert, oriented to person and cooperative; + not oriented to place and + not oriented to time Results & Data Vital Signs (Past 12 Hours) Vital Signs Temp Pulse Pulse Pulse Resp BP BP 01/09/19 15:06 36.6 C 83 20 139/69 01/09/19 12:10 36.6 C 88 151/54 H 01/09/19 12:04 90 149/38 H 01/09/19 11:40 90 155/62 H 01/09/19 11:20 89 160/70 H 01/09/19 11:00 87 154/67 H 01/09/19 10:44 86 178/43 H 01/09/19 10:20 87 153/68 H 01/09/19 10:00 84 164/66 H 01/09/19 09:40 89 190/85 H 01/09/19 09:20 88 174/86 H 01/09/19 09:00 97 H 174/86 H 01/09/19 08:58 36.4 C L 88 01/09/19 07:20 36.3 C L 87 16 161/73 H Pulse Ox 01/09/19 15:06 95 01/09/19 12:10 01/09/19 12:04 01/09/19 11:40 01/09/19 11:20 01/09/19 11:00 01/09/19 10:44 01/09/19 10:20 01/09/19 10:00 01/09/19 09:40 01/09/19 09:20 01/09/19 09:00 01/09/19 08:58 01/09/19 07:20 95 Laboratory Results 01/09/19 01/09/19 Range/Units 20:16 08:10 POC Glucose 134 H 134 H (70-99) PG Care Time/CCT Total # of Minutes Spent Total Time Spent with Patient: Total time spent is greater than 50% in coordination of care (as documented) at patient's floor/unit and/or counseling patient: (1) Altered mental status Altered mental status type: unspecified Qualified Code(s): R41.82 - Altered mental status, unspecified
[2019-01-09] MEDS: NORTRIPTYLINE HCL 25 MG CAP PO SCH (20:00)
[2019-01-09] MEDS: ASPIRIN 81 MG ECTAB PO SCH (20:00)
[2019-01-09] MEDS: ROSUVASTATIN CALCIUM 10 MG TAB PO SCH (20:00)
[2019-01-10] MEDS: PIPERACILLIN/TAZOBACTAM 4.5 GM in DEXTROSE 5% 100 ML IV SCH (04:17)
[2019-01-10 08:38] LABS: Basophils # (auto) 0.05 K/uL (0-0.2); Basophils % (auto) 0.7 %; Eosinophils # (auto) 0.28 K/uL (0-0.5); Eosinophils % (auto) 3.7 %; Hematocrit (blood only) 35.6 % (42-52); Hemoglobin 11.6 g/dL (14.0-18.0); Immature Granulocytes # (auto) 0.05 K/uL (0.00-0.02); Immature Granulocytes % (auto) 0.7 %; Lymphocytes # (auto) 1.54 K/uL (1.2-3.4); Lymphocytes % (auto) 20.5 %; Mean Corpuscular Hemoglobin 28.4 pg (25-34); Mean Corpuscular Hgb Conc 32.6 g/dL (32-36); Mean Platelet Volume 9.6 fL (7.4-10.4); Monocytes # (auto) 0.78 K/uL (0.11-0.59); Monocytes % (auto) 10.4 %; Platelet Count 242 K/uL (130-400); RDW Coefficient of Variation 18.5 % (11.5-14.5); RDW Standard Deviation 59.5 fL (36.4-46.3); Red Blood Count 4.09 M/uL (4.7-6.1)
[2019-01-10] MEDS: SACUBITRIL-VALSARTAN 24-26 MG TAB PO SCH ×2 (09:06→20:04)
[2019-01-10] MEDS: METOPROLOL SUCC 50MG EXT REL TAB PO SCH (09:06)
[2019-01-10] MEDS: CALCIUM ACETATE 667 MG CAP PO SCH ×3 (09:08→17:42)
[2019-01-10] MEDS: CLOPIDOGREL BISULFATE 75 MG TAB PO SCH (09:08)
[2019-01-10] MEDS: INSULIN GLARGINE SOLOSTAR 100 UNITS/ML 3 ML PEN SQ SCH (09:09)
[2019-01-10] MEDS: HEPARIN SOD 5,000 UNIT/0.5 ML VIAL SQ SCH ×2 (09:10→20:04)
[2019-01-10 09:18] LABS: BUN Creatinine Ratio 6.3 (10-20); Calcium 10.2 mg/dl (8.5-10.1); Creatinine Clr Calc Pharmacy 13.9 ml/min; Est GFR (African American) 12.8; Potassium 4.1 mmol/L (3.5-5.1)
--- NOTE | 2019-01-10 11:03 | Nephrology Progress Note ---
Date of Service January 10, 2019 Assessment & Plan (1) ESRD (end stage renal disease) on dialysis: 68 yo M with ESRD due to diabetic nephropathy on home hemodialysis admitted to the hospital with multifocal pneumonia vs pulmonary edema. Has been becoming progressively weak, lethargic and has been having poor p.o. intake and losing weight over last few weeks. Dialysis has been regular volume status, blood pressure, electrolyte has been acceptable. Progressive worsening of overall health status over last few weeks could be secondary to multiple factors including multiple myeloma, end-stage renal disease status and others. Pneumonia can certainly contribute as well. AVF with stenosis On ultrasound however has not been having any issues with cannulation or any prolonged bleeding. Evaluated by vascular surgery who did not feel any intervention needed at this time. No complications with access during HD yesterday. Electrolytes are acceptable. BP is appropriate. Don is tolerating an increased dose of metoprolol well. The patient continues to demonstrate some signs of dementia or intermittent confusion. Short term memory seems to be poor. Will continue MWF HD while inpatient and continue IHD at rehab post discharge. The patient and his expressed understanding. (2) Hypertension: (3) Hypercalcemia: (4) Anemia: (5) Altered mental status: (6) Multifocal pneumonia: Subjective No acute events overnight. No complications with dialysis yesterday. Net UF 1 L. Plan possible DC to rehab. Appetite remains poor. Strength improving. Out of bed to chair this morning. Seen and evaluated with his at the bedside.. Review of Systems Review of Systems: All systems reviewed & are unremarkable except as noted in HPI & below Physical Exam Constitutional: well developed; no acute distress Eyes: no scleral abnormality and no corneal abnormality ENMT: Mouth: no oral mucosal abnormality and oral mucous membranes not dry Neck: normal visual inspection and trachea midline Respiratory: normal respiratory effort Auscultation: lungs clear to auscultation bilaterally Cardiovascular: Rate/Rhythm: regular rate Heart Sounds: normal S1, normal S2 and + murmur Extremities: + AV fistula Gastrointestinal (Abdomen): Percussion/Palpation: abdomen soft; abdomen nontender Musculoskeletal: Extremities: no cyanosis and no clubbing Skin: normal turgor; no rashes Neurologic: Motor/Sensory: no tremor and no asterixis Psychiatric: Orientation: alert and oriented x 3 Results & Data Vital Signs (Past 12 Hours) Vital Signs Temp Pulse Resp BP Pulse Ox 01/10/19 07:18 36.6 C 86 18 147/80 H 97 Laboratory Results Laboratory Results - last 24 hr 01/09/19 01/10/19 01/10/19 20:16 07:55 08:23 WBC 7.50 RBC 4.09 L Hgb 11.6 L Hct 35.6 L MCV 87.0 MCH 28.4 MCHC 32.6 RDW Std Deviation 59.5 H RDW Coeff of Leo 18.5 H Plt Count 242 MPV 9.6 Immature Gran % (Auto) 0.7 Neut % (Auto) 64.0 Lymph % (Auto) 20.5 [place] % (Auto) 10.4 Eos % (Auto) 3.7 Baso % (Auto) 0.7 Immature Gran # (Auto) 0.05 H Neut # (Auto) 4.80 Lymph # (Auto) 1.54 [place] # (Auto) 0.78 H Eos # (Auto) 0.28 Baso # (Auto) 0.05 Sodium Potassium Chloride Carbon Dioxide Anion Gap BUN Creatinine Est Cr Clr Drug Dosing Est GFR ( Amer) Est GFR (Non-Af Amer) BUN/Creatinine Ratio Glucose POC Glucose 134 H 125 H Calcium 01/10/19 08:23 WBC RBC Hgb Hct MCV MCH MCHC RDW Std Deviation RDW Coeff of Leo Plt Count MPV Immature Gran % (Auto) Neut % (Auto) Lymph % (Auto) [place] % (Auto) Eos % (Auto) Baso % (Auto) Immature Gran # (Auto) Neut # (Auto) Lymph # (Auto) [place] # (Auto) Eos # (Auto) Baso # (Auto) Sodium 140 Potassium 4.1 Chloride 99 Carbon Dioxide 31 Anion Gap 10.0 BUN 31 H Creatinine 4.93 H* D Est Cr Clr Drug Dosing 13.9 Est GFR ( Amer) 12.8 Est GFR (Non-Af Amer) 11.0 BUN/Creatinine Ratio 6.3 L Glucose 134 H POC Glucose Calcium 10.2 H (1) Altered mental status Altered mental status type: unspecified Qualified Code(s): R41.82 - Altered mental status, unspecified
--- NOTE | 2019-01-10 11:19 | Palliative Care Progress Note ---
Date of Service January 10, 2019 Assessment & Plan (1) Goals of care, counseling/discussion: -Patient is looking brighter today while sitting up in chair for first time since admission. His is in hospital but was not at the bedside. Patient does seem to have periods of confusion/forgetfulness. Orientation status difficult to assess due to blunted affect and delayed response time. Patient has no new complaints. -Plan will likely be for rehab after hospitalization. -Goals of care was discussed yesterday. Patient has living will stating he does not want any life-prolonging procedures when end stage, but he is okay with continuing dialysis for now. He would NOT want a feeding tube. Was seen by speech therapy yesterday who recommended full liquid and moist pureed diet. -Palliative care will follow peripherally. -PPS 40%. (2) Multifocal pneumonia: (3) Ischemic cardiomyopathy: (4) ESRD (end stage renal disease) on dialysis: (5) Weakness: (6) Dysphagia: Subjective Patient is looking brighter today while sitting up in chair for first time since admission. His is in hospital but was not at the bedside. Patient does seem to have periods of confusion/forgetfulness. Orientation status difficult to assess due to blunted affect and delayed response time. Patient has no new complaints. Review of Systems Constitutional: + weakness Ear, Nose, Mouth, Throat: + dysphagia Musculoskeletal: + muscle weakness and + muscle atrophy Physical Exam Constitutional: + ill appearing (chronically) ENMT: external ear and nose normal, oropharynx normal Neck: normal visual inspection Respiratory: normal respiratory effort; no labored breathing Cardiovascular: Rate/Rhythm: regular rate Gastrointestinal (Abdomen): Inspection/Auscultation: abdomen normal to inspection and normal bowel sounds Neurologic: moves all extremities and awake Psychiatric: Orientation: alert and oriented x 3 Affect: + blunted affect Results & Data Vital Signs (Past 12 Hours) Vital Signs Temp Pulse Resp BP Pulse Ox 01/10/19 07:18 36.6 C 86 18 147/80 H 97 Supervising Physician Co-Signing Physician Notes Chart reviewed, patient seen and examined along with EMMA Lazaro PE: Patient awake, NAD HEENT: EOMI, hearing within normal limits Respirations: Unlabored CV: Regular rate, no edema Agree with above note, assessment and plan as per EMMA Lazaro-patient was seen by PT and evaluate for possible rehab potential. Time Spent Midlevel 25 minutes with >50% of the time spent at bedside with patient discussing condition and plan.
[2019-01-10] MEDS ORDERED: AMOXICILLIN/CLAVULANATE 500 MG TAB PO SCH (16:00)
[2019-01-10] MEDS: ROSUVASTATIN CALCIUM 10 MG TAB PO SCH (20:03)
[2019-01-10] MEDS: ASPIRIN 81 MG ECTAB PO SCH (20:04)
[2019-01-10] MEDS: NORTRIPTYLINE HCL 25 MG CAP PO SCH (20:05)
--- NOTE | 2019-01-10 20:52 | Hospitalist Progress Note ---
Date of Service January 10, 2019 Assessment & Plan (1) Multifocal pneumonia: CXR showed bilateral infiltrates that could represent multifocal pneumonia. Procalcitonin was 2.3. Multifocal pneumonia, possibly MRSA or gram- negative. - Vanc stopped on 01/06 for negative MRSA nasal screen Much improved Not requiring supplemental O2 No evidence of sepsis There is likely chance this could be aspiration pneumonia given history of choking episode -Consult speech therapy for swallow evaluation-appreciated--> recommends pureed moist diet, aspiration precautions - Converted Zosyn to Augmentin and will finish out 2 more days (2) Altered mental status: Metabolic encephalopathy secondary to multifocal pneumonia-much improved reports he has had progressively worsening mentation for the last 3 months and that it was not really much worse when he got sick with this pneumonia (3) Ischemic cardiomyopathy: Echo in 08/2018 showed EF 25-30%. - CXR on 01/04 showed element of volume overload. - Removing fluid with HD; he does make some urine but not needing diuretics at this point - Continue ASA, Plavix, beta-verona, Entresto, statin (4) Coronary artery disease: On 01/06, had some very vague, waxing and waning chest pain. He could not describe it well, but did deny any radiation or other correlated symptoms such as diaphoresis, nausea, etc. Troponins were negative and EKGs were stable. - Treating for MSK and some GERD symptoms with Tylenol and ranitidine - Continue ASA, Plavix,increased dose of beta-verona, Entresto, statin as above (5) ESRD (end stage renal disease) on dialysis: He typically gets home HD 5 days/week. - Appreciate nephrology input - HD per nephrology-due tomorrow -Follow BMP -Continue calcium acetate 3 times daily with meals (6) Multiple sclerosis: During hospitalization of 08/2018, his neurologist (Dr. Finn) reported he had not been to his office in >1 year. Plan was to re-establish care after the hospitalization. reports patient was seen by Dr. Finn however there is no medication or treatment that he can use at this point due to being on hemodialysis - No acute inpatient needs -Continue supportive care -PT/OT consults placed-plan for rehab placement (7) Hypertension: Blood pressures uncontrolled, now improved with increased dose Toprol but remain somewhat elevated -continue increased dose of metoprolol 100 mg daily -Continue Entresto (8) Diabetes: A1c was 4.5% in 08/2018. Given his ESRD, A1c is not an ideal measure of his control however. - Continue Lantus insulin at 10 units daily - Sliding scale insulin (9) Agitation: Family reports that the patient typically becomes very agitated in hospital when he wakes up and his family is not around. - Lorazepam and Haldol PRN-these have not been given since admission (10) DVT prophylaxis: Heparin 5000 units BID Disposition-remain hospitalized, appreciate palliative care consultation -no plans for Hospice at this time POLST to be performed prior to dc PT/OT-recommending rehab Pt is agreeable to acute rehab at [facility]-placed today by CM Medically stable for discharge at this time Subjective Pt was OOB with therapy to a chair today and did some standing. Was very weak but happy he did it. Denies cough or SOB, no CP. Is eating. No other concerns Review of Systems Review of Systems: All systems reviewed & are unremarkable except as noted in HPI & below Physical Exam Constitutional: average body habitus; no acute distress Eyes: + anicteric sclerae Neck: trachea midline, no thyromegaly Respiratory: Auscultation: + diminished lung sounds (At the bases bilaterally); no crackles and no rhonchi Cardiovascular: RRR, no murmur, no edema Gastrointestinal (Abdomen): normal bowel sounds, soft, nontender, no hepatosplenomegaly (With colostomy bag without gas and some stool in the left lower quadrant) Musculoskeletal: Extremities: extremities normal to inspection; no cyanosis and no clubbing Skin: no rashes, warm and dry Neurologic: moves all extremities (Has 4/5 strength throughout all extremities) and awake Psychiatric: Orientation: alert, oriented to person and cooperative; + not oriented to place and + not oriented to time Results & Data Vital Signs (Past 12 Hours) Vital Signs Temp Pulse Resp BP Pulse Ox 01/10/19 15:44 36.4 C L 82 19 165/78 H 96 Laboratory Results 01/10/19 01/10/19 01/10/19 Range/Units 20:24 16:45 11:58 WBC (4.8-10.8) K/uL RBC (4.7-6.1) M/uL Hgb (14.0-18.0) g/dL Hct (42-52) % MCV (80-100) fL MCH (25-34) pg MCHC (32-36) g/dL RDW Std Deviation (36.4-46.3) fL RDW Coeff of Leo (11.5-14.5) % Plt Count (130-400) K/uL MPV (7.4-10.4) fL Immature Gran % (Auto) % Neut % (Auto) % Lymph % (Auto) % Churchill % (Auto) % Eos % (Auto) % Baso % (Auto) % Immature Gran # (Auto) (0.00-0.02) K/uL Neut # (Auto) (1.4-6.5) K/uL Lymph # (Auto) (1.2-3.4) K/uL Churchill # (Auto) (0.11-0.59) K/uL Eos # (Auto) (0-0.5) K/uL Baso # (Auto) (0-0.2) K/uL Sodium (136-145) mmol/L Potassium (3.5-5.1) mmol/L Chloride (98-107) mmol/L Carbon Dioxide (21-32) mmol/L Anion Gap (3-11) BUN (7-18) mg/dl Creatinine (0.6-1.4) mg/dl Est Cr Clr Drug Dosing ml/min Est GFR ( Amer) Est GFR (Non-Af Amer) BUN/Creatinine Ratio (10-20) Glucose (70-99) mg/dl POC Glucose 158 H 143 H 174 H (70-99) Calcium (8.5-10.1) mg/dl 01/10/19 01/10/19 01/10/19 Range/Units 08:23 08:23 07:55 WBC 7.50 (4.8-10.8) K/uL RBC 4.09 L (4.7-6.1) M/uL Hgb 11.6 L (14.0-18.0) g/dL Hct 35.6 L (42-52) % MCV 87.0 (80-100) fL MCH 28.4 (25-34) pg MCHC 32.6 (32-36) g/dL RDW Std Deviation 59.5 H (36.4-46.3) fL RDW Coeff of Leo 18.5 H (11.5-14.5) % Plt Count 242 (130-400) K/uL MPV 9.6 (7.4-10.4) fL Immature Gran % (Auto) 0.7 % Neut % (Auto) 64.0 % Lymph % (Auto) 20.5 % Churchill % (Auto) 10.4 % Eos % (Auto) 3.7 % Baso % (Auto) 0.7 % Immature Gran # (Auto) 0.05 H (0.00-0.02) K/uL Neut # (Auto) 4.80 (1.4-6.5) K/uL Lymph # (Auto) 1.54 (1.2-3.4) K/uL Churchill # (Auto) 0.78 H (0.11-0.59) K/uL Eos # (Auto) 0.28 (0-0.5) K/uL Baso # (Auto) 0.05 (0-0.2) K/uL Sodium 140 (136-145) mmol/L Potassium 4.1 (3.5-5.1) mmol/L Chloride 99 (98-107) mmol/L Carbon Dioxide 31 (21-32) mmol/L Anion Gap 10.0 (3-11) BUN 31 H (7-18) mg/dl Creatinine 4.93 H* D (0.6-1.4) mg/dl Est Cr Clr Drug Dosing 13.9 ml/min Est GFR ( Amer) 12.8 Est GFR (Non-Af Amer) 11.0 BUN/Creatinine Ratio 6.3 L (10-20) Glucose 134 H (70-99) mg/dl POC Glucose 125 H (70-99) Calcium 10.2 H (8.5-10.1) mg/dl BCxs NGTD PG Care Time/CCT Total # of Minutes Spent Total Time Spent with Patient: Total time spent is greater than 50% in coordination of care (as documented) at patient's floor/unit and/or counseling patient: (1) Altered mental status Altered mental status type: unspecified Qualified Code(s): R41.82 - Altered mental status, unspecified
[2019-01-11 06:14] LABS: BUN Creatinine Ratio 6.2 (10-20); Calcium 10.4 mg/dl (8.5-10.1); Creatinine Clr Calc Pharmacy 11.4 ml/min; Est GFR (Non-African American) 8.6; Potassium 5.1 mmol/L (3.5-5.1)
[2019-01-11] MEDS ORDERED: SODIUM CHLORIDE 0.9% 1000ML 1,000 ML IV PRN (07:00)
[2019-01-11] MEDS ORDERED: AMOXICILLIN/CLAVULANATE 500 MG TAB PO SCH (09:00)
[2019-01-11] MEDS: METOPROLOL SUCC 50MG EXT REL TAB PO SCH (09:23)
[2019-01-11] MEDS: SACUBITRIL-VALSARTAN 24-26 MG TAB PO SCH ×2 (09:23→20:01)
[2019-01-11] MEDS: CLOPIDOGREL BISULFATE 75 MG TAB PO SCH (09:23)
[2019-01-11] MEDS: HEPARIN SOD 5,000 UNIT/0.5 ML VIAL SQ SCH ×2 (09:23→20:01)
[2019-01-11] MEDS: CALCIUM ACETATE 667 MG CAP PO SCH ×3 (09:24→16:47)
[2019-01-11] MEDS: INSULIN GLARGINE SOLOSTAR 100 UNITS/ML 3 ML PEN SQ SCH (09:25)
--- NOTE | 2019-01-11 14:37 | Hospitalist Progress Note ---
Date of Service January 11, 2019 Assessment & Plan (1) Multifocal pneumonia: CXR showed bilateral infiltrates that could represent multifocal pneumonia. Procalcitonin was 2.3. Multifocal pneumonia, possibly MRSA or gram- negative. - Vanc stopped on 01/06 for negative MRSA nasal screen Much improved Not requiring supplemental O2 No evidence of sepsis There is likely chance this could be aspiration pneumonia given history of choking episode -Consult speech therapy for swallow evaluation-appreciated--> recommends pureed moist diet, aspiration precautions - Converted Zosyn to Augmentin and will finish out 1 more day (2) Altered mental status: Metabolic encephalopathy secondary to multifocal pneumonia-much improved reports he has had progressively worsening mentation for the last 3 months and that it was not really much worse when he got sick with this pneumonia (3) Ischemic cardiomyopathy: Echo in 08/2018 showed EF 25-30%. - CXR on 01/04 showed element of volume overload. - Removing fluid with HD; he does make some urine but not needing diuretics at this point - Continue ASA, Plavix, beta-verona, Entresto, statin (4) Coronary artery disease: On 01/06, had some very vague, waxing and waning chest pain. He could not describe it well, but did deny any radiation or other correlated symptoms such as diaphoresis, nausea, etc. Troponins were negative and EKGs were stable. - Treating for MSK and some GERD symptoms with Tylenol and ranitidine - Continue ASA, Plavix,increased dose of beta-verona, Entresto, statin as above (5) ESRD (end stage renal disease) on dialysis: He typically gets home HD 5 days/week at home - Appreciate nephrology input - HD per nephrology-had today 01/11 -Continue calcium acetate 3 times daily with meals (6) Multiple sclerosis: During hospitalization of 08/2018, his neurologist (Dr. Finn) reported he had not been to his office in >1 year. Plan was to re-establish care after the hospitalization. reports patient was seen by Dr. Finn however there is no medication or treatment that he can use at this point due to being on hemodialysis - No acute inpatient needs -Continue supportive care -PT/OT consults placed-plan for rehab placement (7) Hypertension: Blood pressures uncontrolled, now much improved with increased dose Toprol but remain somewhat elevated -continue increased dose of metoprolol 100 mg daily -Continue Entresto (8) Diabetes: A1c was 4.5% in 08/2018. Given his ESRD, A1c is not an ideal measure of his control however. Glucose checks here 120s-180s - Continue Lantus insulin at 10 units daily - Sliding scale insulin (9) Agitation: Family reports that the patient typically becomes very agitated in hospital when he wakes up and his family is not around. Has been doing very well (10) DVT prophylaxis: Heparin 5000 units BID Disposition-remain hospitalized, appreciate palliative care consultation -no plans for Hospice at this time POLST to be performed prior to dc PT/OT-recommending rehab-accepted at [facility], will continue to watch here after HD today and then plan for dc to rehab tomorrow Subjective Pt receiving HD at the time I saw him. Feels "good" and has no complaints. Denies CP, SOB, or cough. Denies nausea or abd pain. Is eating. Review of Systems Review of Systems: All systems reviewed & are unremarkable except as noted in HPI & below Physical Exam Constitutional: average body habitus; no acute distress Eyes: + anicteric sclerae Neck: trachea midline, no thyromegaly Respiratory: Auscultation: + diminished lung sounds (At the bases bilateral ly); no crackles and no rhonchi Cardiovascular: RRR, no murmur, no edema Gastrointestinal (Abdomen): normal bowel sounds, soft, nontender, no hepatosplenomegaly (With colostomy bag without gas and some stool in the left lower quadrant) Musculoskeletal: Extremities: extremities normal to inspection; no cyanosis and no clubbing Skin: no rashes, warm and dry Neurologic: moves all extremities (Has 4/5 strength throughout all e xtremities) and awake Psychiatric: Orientation: alert, oriented to person and cooperative; + not oriented to place and + not oriented to time Results & Data Vital Signs (Past 12 Hours) Vital Signs Temp Pulse Pulse Resp BP BP Pulse Ox 01/11/19 14:20 92 H 153/57 H 01/11/19 14:00 87 146/65 H 01/11/19 13:40 85 130/69 01/11/19 13:20 86 138/70 01/11/19 13:00 86 136/67 01/11/19 12:40 84 169/73 H 01/11/19 12:27 36.5 C 85 01/11/19 07:23 36.4 C L 80 16 172/90 H 98 Laboratory Results 01/11/19 01/11/19 01/11/19 Range/Units 11:20 07:54 05:23 Sodium 139 (136-145) mmol/L Potassium 5.1 D (3.5-5.1) mmol/L Chloride 102 (98-107) mmol/L Carbon Dioxide 27 (21-32) mmol/L Anion Gap 10.0 (3-11) BUN 37 H (7-18) mg/dl Creatinine 6.05 H* D (0.6-1.4) mg/dl Est Cr Clr Drug Dosing 11.4 ml/min Est GFR ( Amer) 10.0 Est GFR (Non-Af Amer) 8.6 BUN/Creatinine Ratio 6.2 L (10-20) Glucose 134 H (70-99) mg/dl POC Glucose 189 H 129 H (70-99) Calcium 10.4 H (8.5-10.1) mg/dl Specimen Hemolysis 01/10/19 01/10/19 Range/Units 20:24 16:45 Sodium (136-145) mmol/L Potassium (3.5-5.1) mmol/L Chloride (98-107) mmol/L Carbon Dioxide (21-32) mmol/L Anion Gap (3-11) BUN (7-18) mg/dl Creatinine (0.6-1.4) mg/dl Est Cr Clr Drug Dosing ml/min Est GFR ( Amer) Est GFR (Non-Af Amer) BUN/Creatinine Ratio (10-20) Glucose (70-99) mg/dl POC Glucose 158 H 143 H (70-99) Calcium (8.5-10.1) mg/dl Specimen Hemolysis PG Care Time/CCT Total # of Minutes Spent Total Time Spent with Patient: Total time spent is greater than 50% in coordination of care (as documented) at patient's floor/unit and/or counseling patient: (1) Altered mental status Altered mental status type: unspecified Qualified Code(s): R41.82 - Altered mental status, unspecified
--- NOTE | 2019-01-11 15:57 | Nephrology Progress Note ---
Date of Service January 11, 2019 Assessment & Plan (1) ESRD (end stage renal disease) on dialysis: 68 yo M with ESRD due to diabetic nephropathy on home hemodialysis admitted to the hospital with multifocal pneumonia vs pulmonary edema. There has been significant improvement with therapy. His dry weight has been appropriately adjusted to reflect ultrafiltration. His current weight of 72 kilograms below his prior estimated dry weight. Overall the appears to be doing well and is expected to be discharged to rehab tomorrow. We will be happy to continue to follow the patient and provide oversight for hemodialysis at [facility] post discharge. Electrolytes are acceptable. Potassium slightly high -- dietary restriction should be enforced. BP is appropriate. Don is tolerating an increased dose of metoprolol well. The patient continues to demonstrate some signs of dementia or intermittent confusion. Short term memory seems to be poor. Will continue MWF HD while inpatient and continue IHD at rehab post discharge. (2) Hypertension: (3) Anemia: (4) Multifocal pneumonia: Subjective No acute events overnight. Patient was seen evaluated during hemodialysis today. He is tolerating treatment well. Blood flow appropriate. Blood pressure adequate. Plan for possible discharge to [facility] tomorrow. Review of Systems Review of Systems: All systems reviewed & are unremarkable except as noted in HPI & below Physical Exam Constitutional: well developed; no acute distress Eyes: no scleral abnormality and no corneal abnormality ENMT: Mouth: no oral mucosal abnormality and oral mucous membranes not dry Neck: normal visual inspection and trachea midline Respiratory: normal respiratory effort Auscultation: lungs clear to auscultation bilaterally Cardiovascular: Rate/Rhythm: regular rate Heart Sounds: normal S1, normal S2 and + murmur Extremities: + AV fistula Gastrointestinal (Abdomen): Percussion/Palpation: abdomen soft; abdomen nontender Musculoskeletal: Extremities: no cyanosis and no clubbing Skin: normal turgor; no rashes Neurologic: Motor/Sensory: no tremor and no asterixis Psychiatric: Orientation: alert and oriented x 3 Results & Data Vital Signs (Past 12 Hours) Vital Signs Temp Pulse Pulse Resp BP BP Pulse Ox 01/11/19 14:20 92 H 153/57 H 01/11/19 14:00 87 146/65 H 01/11/19 13:40 85 130/69 01/11/19 13:20 86 138/70 01/11/19 13:00 86 136/67 01/11/19 12:40 84 169/73 H 01/11/19 12:27 36.5 C 85 01/11/19 07:23 36.4 C L 80 16 172/90 H 98 Laboratory Results Laboratory Results - last 24 hr 01/10/19 01/10/19 01/11/19 16:45 20:24 05:23 Sodium 139 Potassium 5.1 D Chloride 102 Carbon Dioxide 27 Anion Gap 10.0 BUN 37 H Creatinine 6.05 H* D Est Cr Clr Drug Dosing 11.4 Est GFR ( Amer) 10.0 Est GFR (Non-Af Amer) 8.6 BUN/Creatinine Ratio 6.2 L Glucose 134 H POC Glucose 143 H 158 H Calcium 10.4 H Specimen Hemolysis 01/11/19 01/11/19 07:54 11:20 Sodium Potassium Chloride Carbon Dioxide Anion Gap BUN Creatinine Est Cr Clr Drug Dosing Est GFR ( Amer) Est GFR (Non-Af Amer) BUN/Creatinine Ratio Glucose POC Glucose 129 H 189 H Calcium Specimen Hemolysis PG Care Time/CCT Total # of Minutes Spent Total Time Spent with Patient: Total time spent is greater than 50% in coordination of care (as documented) at patient's floor/unit and/or counseling patient:
[2019-01-11] MEDS ORDERED: LORazepam 1 MG/2 ML VIAL IV PRN (18:32)
[2019-01-11] MEDS: ROSUVASTATIN CALCIUM 10 MG TAB PO SCH (20:01)
[2019-01-11] MEDS: NORTRIPTYLINE HCL 25 MG CAP PO SCH (20:01)
[2019-01-11] MEDS: ASPIRIN 81 MG ECTAB PO SCH (20:02)
[2019-01-12 06:06] LABS: Albumin Level 2.6 gm/dl (3.4-5.0); BUN Creatinine Ratio 4.7 (10-20); Calcium 10.2 mg/dl (8.5-10.1); Creatinine Clr Calc Pharmacy 15.4 ml/min; Est GFR (African American) 14.4; Est GFR (Non-African American) 12.5; Phosphorus 4.5 mg/dl (2.5-4.9); Potassium 4.3 mmol/L (3.5-5.1)
[2019-01-12] MEDS: HEPARIN SOD 5,000 UNIT/0.5 ML VIAL SQ SCH (08:22)
[2019-01-12] MEDS: INSULIN GLARGINE SOLOSTAR 100 UNITS/ML 3 ML PEN SQ SCH (08:22)
[2019-01-12] MEDS: SACUBITRIL-VALSARTAN 24-26 MG TAB PO SCH (08:23)
[2019-01-12] MEDS: CLOPIDOGREL BISULFATE 75 MG TAB PO SCH (08:23)
[2019-01-12] MEDS: CALCIUM ACETATE 667 MG CAP PO SCH ×2 (08:23→11:38)
[2019-01-12] MEDS: METOPROLOL SUCC 50MG EXT REL TAB PO SCH (08:23)
--- NOTE | 2019-01-12 10:49 | Nephrology Progress Note ---
Date of Service January 12, 2019 Assessment & Plan (1) ESRD (end stage renal disease) on dialysis: 68 yo M with ESRD due to diabetic nephropathy on home hemodialysis admitted to the hospital with multifocal pneumonia vs pulmonary edema. There has been significant improvement with therapy. His dry weight has been appropriately adjusted to reflect ultrafiltration. His current weight of 72 kilograms below his prior estimated dry weight. Overall the appears to be doing well and is expected to be discharged to rehab today. Electrolytes are acceptable. BP appropriate. The patient continues to demonstrate some signs of dementia or intermittent confusion. Will continue MWF HD while inpatient and continue IHD at rehab post discharge. (2) Hypertension: (3) Anemia: (4) Multifocal pneumonia: Subjective No acute events overnight. Tolerated HD well yesterday without complications. No complaints or concerns this AM. Review of Systems Review of Systems: All systems reviewed & are unremarkable except as noted in HPI & below Physical Exam Constitutional: well developed; no acute distress Eyes: no scleral abnormality and no corneal abnormality ENMT: Mouth: no oral mucosal abnormality and oral mucous membranes not dry Neck: normal visual inspection and trachea midline Respiratory: normal respiratory effort Auscultation: lungs clear to auscultation bilaterally Cardiovascular: Rate/Rhythm: regular rate Heart Sounds: normal S1, normal S2 and + murmur Extremities: + AV fistula Gastrointestinal (Abdomen): Percussion/Palpation: abdomen soft; abdomen nontender Musculoskeletal: Extremities: no cyanosis and no clubbing Skin: normal turgor; no rashes Neurologic: Motor/Sensory: no tremor and no asterixis Psychiatric: Orientation: alert and oriented x 3 Results & Data Vital Signs (Past 12 Hours) Vital Signs Temp Pulse Pulse Resp BP Pulse Ox 01/12/19 06:53 36.6 C 83 18 157/82 H 97 01/11/19 22:52 36.5 C 73 18 118/69 97 Laboratory Results Laboratory Results - last 24 hr 01/11/19 01/11/19 01/11/19 11:20 16:47 19:49 Sodium Potassium Chloride Carbon Dioxide Anion Gap BUN Creatinine Est Cr Clr Drug Dosing Est GFR ( Amer) Est GFR (Non-Af Amer) BUN/Creatinine Ratio Glucose POC Glucose 189 H 131 H 132 H Calcium Phosphorus Albumin 01/12/19 01/12/19 05:24 08:08 Sodium 138 Potassium 4.3 D Chloride 101 Carbon Dioxide 28 Anion Gap 9.0 BUN 21 H Creatinine 4.46 H D Est Cr Clr Drug Dosing 15.4 Est GFR ( Amer) 14.4 Est GFR (Non-Af Amer) 12.5 BUN/Creatinine Ratio 4.7 L Glucose 123 H POC Glucose 119 H Calcium 10.2 H Phosphorus 4.5 Albumin 2.6 L PG Care Time/CCT Total # of Minutes Spent Total Time Spent with Patient: Total time spent is greater than 50% in coordination of care (as documented) at patient's floor/unit and/or counseling patient:
--- NOTE | 2019-01-12 13:52 | Discharge Summary ---
Date of Service January 12, 2019 Admission HPI Per Admitting Provider The patient is a 68-year-old male with past medical history including multiple sclerosis, CAD, CHF, ischemic cardiomyopathy, ESRD on HD, who presents to the emergency department with worsening confusion and decreased responsiveness, with fevers, chills and sweats over the past week. Family reports that the patient has a Doppler scheduled for tomorrow to assess his fistula due to concerns from his value stream leader Dr. Poe about a potential infection. In the emergency department, work-up included a chest x-ray, which shows extensive multifocal pneumonia. Principal Diagnosis Pneumonia Discharge Exam Constitutional average body habitus; no acute distress Eyes + anicteric sclerae ENMT external ear and nose normal, oropharynx normal Neck trachea midline, no thyromegaly Respiratory Auscultation: + diminished lung sounds (At the bases bilaterally); no crackles and no rhonchi Cardiovascular RRR, no murmur, no edema Gastrointestinal (Abdomen) normal bowel sounds, soft, nontender, no hepatosplenomegaly (With colostomy bag without gas and some stool in the left lower quadrant) Musculoskeletal Extremities: extremities normal to inspection; no cyanosis and no clubbing Skin no rashes, warm and dry Neurologic moves all extremities (Has 4/5 strength throughout all extremities) and awake Psychiatric Orientation: alert, oriented to person and cooperative; + not oriented to place and + not oriented to time Discharge Data Allergies Allergy/AdvReac Type Severity Reaction Status Date / Time No Known Allergies Allergy Verified 01/04/19 22:17 Consultations 01/05/19 00:47 ED Decision to Admit Stat 01/05/19 02:40 Consult Case Management - Discharge Planning Routine Consult Nephrology Routine 01/05/19 10:41 Consult Palliative Care Routine 01/06/19 08:07 Consult Vascular Surgery Routine Ordered Studies 01/04/19 21:58 CT head/brain wo con Stat 01/05/19 11:05 US hemodialysis access Routine CXR Hospital Course (1) Multifocal pneumonia: CXR showed bilateral infiltrates that represent multifocal pneumonia. Procalcitonin was 2.3. Multifocal pneumonia, possibly MRSA or gram-negative. - Vanc stopped on 01/06 for negative MRSA nasal screen Much improved Not requiring supplemental O2 No evidence of sepsis There is likely chance this could be aspiration pneumonia given history of choking episode -Consult speech therapy for swallow evaluation-appreciated--> recommends pureed moist diet, aspiration precautions - Converted Zosyn to Augmentin and completed a course of abx here (2) Altered mental status: Metabolic encephalopathy secondary to multifocal pneumonia-much improved reports he has had progressively worsening mentation for the last 3 months and that it was not really much worse when he got sick with this pneumonia (3) Ischemic cardiomyopathy: Echo in 08/2018 showed EF 25-30%. - CXR on 01/04 showed element of volume overload. - Removing fluid with HD; he does make some urine but not needing diuretics at this point - Continue ASA, Plavix, beta-verona, Entresto, statin (4) Coronary artery disease: On 01/06, had some very vague, waxing and waning chest pain. He could not describe it well, but did deny any radiation or other correlated symptoms such as diaphoresis, nausea, etc. Troponins were negative and EKGs were stable. - Treating for MSK and some GERD symptoms with Tylenol and ranitidine - Continue ASA, Plavix,increased dose of beta-verona, Entresto, statin as above (5) ESRD (end stage renal disease) on dialysis: He typically gets home HD 5 days/week at home - Appreciate nephrology input - HD per nephrology-had today 01/11 -Continue calcium acetate 3 times daily with meals (6) Multiple sclerosis: During hospitalization of 08/2018, his neurologist (Dr. Finn) reported he had not been to his office in >1 year. Plan was to re-establish care after the hospitalization. reports patient was seen by Dr. Finn however there is no medication or treatment that he can use at this point due to being on hemodialysis - No acute inpatient needs -Continue supportive care -PT/OT consults placed-plan for rehab placement (7) Hypertension: Blood pressures uncontrolled, now much improved with increased dose Toprol but remain somewhat elevated -continue increased dose of metoprolol 100 mg daily -Continue Entresto (8) Diabetes: A1c was 4.5% in 08/2018. Given his ESRD, A1c is not an ideal measure of his control however. Glucose checks here 120s-180s - Continue Lantus insulin at 10 units daily - Sliding scale insulin (9) Agitation: Family reports that the patient typically becomes very agitated in hospital when he wakes up and his family is not around. Has been doing very well (10) DVT prophylaxis: Heparin 5000 units BID was provided Disposition-stable for discharge to rehab, appreciate palliative care consultation -no plans for Hospice at this time PT/OT-recommending rehab-accepted at [facility] Total Time Total Time Spent Total Time Spent (In Minutes): >30 min Total Time Includes: Examination of the Patient, Discharge Planning and Medication Reconciliation Discharge Plan Discharge Items Patient Disposition: Transfer Inpatient Rehab Fac Reason For Visit: MULTIFOCAL PNEUMONIA Discharge Diagnosis: Aspiration Pneumonia Condition on Discharge: Fair Activity: As commented below Bathing: No limitations Exercise/Sports: Gradually increase as tolerated Non-emergency contact: Primary Care Provider and Investment Representative Call non-emergency contact if: you have any medication questions and your symptoms worsen Follow-up/Referrals: Elyse Smith [Primary Care Provider] - Diet: Carb Consistent or DM2 and Dialysis Renal Addtl Attending Provider Instructions: Mr. Bravo has finished out his course of antibiotics for his pneumonia. He needs aggressive rehab for his generalized deconditioning. He needs to continue on hemodialysis three times weekly, but upon return to home, he does get dialysis 5 times weekly. Pending Studies at Discharge: No Stand-Alone Forms: My [facility] Skilled Items Patient informed of condition?: Yes DNR: Yes Discharge Level of Care: Acute rehab Communicable Disease: No Discharge Prognosis: Improving Lines: None Urinary Catheter: No Medications and DC Order Prescriptions: New metoprolol succinate 100 mg tablet extended release 24 hr 100 mg PO DAILY Qty: 30 RF: 0 acetaminophen [Mapap (acetaminophen)] 325 mg Tablet 650 mg PO Q4H PRN (Reason: pain) Qty: 30 RF: 0 Continued calcium acetate 667 mg Tablet 1,334 mg PO TIDM RF: 0 aspirin [Aspir-81] 81 mg Tablet,Delayed Release (Dr/Ec) 81 mg PO QPM RF: 0 dutasteride 0.5 mg Capsule 0.5 mg PO QAM RF: 0 rosuvastatin 10 mg Tablet 10 mg PO QPM RF: 0 ProRenal 8 mg iron-800 mcg-1,000 unit tablet 1 tab PO QAM RF: 0 clopidogrel [Plavix] 75 mg tablet 75 mg PO QAM RF: 0 nortriptyline 25 mg capsule 25 mg PO QPM RF: 0 Entresto 24-26 mg tablet 1 tab PO BID Qty: 60 RF: 0 levocetirizine [Xyzal] 5 mg Tablet 5 mg PO DAILY RF: 0 Changed Lantus U-100 Insulin 100 unit/mL Solution 10 unit SUBCUT QAM Qty: 0 RF: 0 diphenhydramine HCl [Benadryl] 25 mg Capsule 50 mg PO DAILY PRN (Reason: anxiety) Qty: 0 RF: 0 Discontinued meclizine 25 mg Tablet 25 mg PO DIRECTED PRN (Reason: Dizziness) RF: 0 metoprolol succinate [Toprol XL] 50 mg tablet extended release 24 hr 50 mg PO QAM RF: 0 Discharge Orders: Discharge Order (Routine); Ordered 01/12/19 Ordered By: Brenda Campa Admission Data Admit Date/Time: 01/05/19 01:49 Attending Provider: Brenda Campa Admit Provider: Ralph Mcclure Primary Care Provider: Elyse Smith Other Providers: Saida Moreno ; Deng Velazquez ; Norma Matute Other Interventions: Discharge Summary Assessment (RN) Last Done: 01/12/19 16:20 DC Date/Time DO NOT enter until pt leaves facility: 01/12/19 17:36
--- NOTE | 2019-02-03 10:05 | Coding Query ---
CODING QUERY To promote full compliance with coding requirements relating to patient care, provider participation is requested in all cases of direct mail coordinator uncertainty. Please assist us with the question(s) below: Coding Question: Please clarify below to the best of your knowledge what type of pneumonia that the patient was treated for during their stay as they code out differently and there are several possibilities listed. For example, MRSA pneumonia was listed as possible but the vanco was discontinued on 01/06 due to a negative MRSA nasal screen.Thank you so much for your help on this! ( ) MRSA pneumonia, POA ( ) Other Gram-negative pneumonia, POA ( ) Pneumonia, unspecified organism, POA (x ) Aspiration pneumonia, POA ( ) Other, explain Thank you! Va Ramirez Principal Diagnosis: "that condition established after study, to be chiefly responsible for occasioning the admission of the patient to the hospital for care." Co-Existing Principal Diagnosis: "when two or more diagnoses equally meet the criteria for principal diagnosis as determined by the circumstances of admission, diagnostic work up, and/or therapy provided, and the Alphabetic Index, Tabular List, or another coding guideline does not provide sequencing direction, any one of the diagnoses may be sequenced first." "When the physician has documented what appears to be a current diagnosis in the body of the record, but has not included the diagnosis in the final diagnostic statement, the physician should be asked whether the diagnosis should be added." (Source Coding [facility] 2 QTR90. p3-4) REVA
== END 2019-01-12 17:36 | DRG 177 ==
LOC: ED 20:16 → 2E 01-05 01:49 → SUATTDRO 01-05 01:49 → 2E 01-05 02:16 → 4W 01-06 16:09